=== PATIENT | female | born 1960 | race Caucasian/White ===

== ENCOUNTER 2016-10-15 12:17 | Outpatient (CLI) | payer MEDICARE, MEDICAID | END 2016-10-15 12:18 | disposition home or self-care (01) | DX: M47.816 Spondylosis without myelopathy or radiculopathy, lumbar region (principal); M51.36 Other intervertebral disc degeneration, lumbar region; K80.20 Calculus of gallbladder without cholecystitis without obstruction; M51.26 Other intervertebral disc displacement, lumbar region ==

== ENCOUNTER 2017-01-23 13:16 | Outpatient (CLI) | payer MEDICARE, MEDICAID | END 2017-01-23 13:17 | disposition critical access hospital (66) | DX: M54.2 Cervicalgia (principal); W07.XXXA Fall from chair, initial encounter; Y93.89 Activity, other specified; Y92.013 Bedroom of single-family (private) house as the place of occurrence of the external cause | CPT/HCPCS: A0425; A0429 ==

== ENCOUNTER 2017-01-23 13:46 | Emergency (ER) | payer MEDICARE, MEDICAID ==
[2017-01-23] MEDS ORDERED: KETOROLAC 60 MG/2 ML VIAL IM STA (14:16)
[2017-01-23] MEDS ORDERED: KETOROLAC 30 MG/ML VIAL ONE (14:24)
== END 2017-01-23 16:09 | disposition home or self-care (01) ==
DX: S19.9XXA Unspecified injury of neck, initial encounter (principal); W06.XXXA Fall from bed, initial encounter; W22.01XA Walked into wall, initial encounter; R59.0 Localized enlarged lymph nodes; M79.7 Fibromyalgia; I10 Essential (primary) hypertension; E78.00 Pure hypercholesterolemia, unspecified; E78.5 Hyperlipidemia, unspecified; F17.200 Nicotine dependence, unspecified, uncomplicated

== ENCOUNTER 2017-04-28 10:35 | Outpatient (CLI) | payer MEDICARE, MEDICAID ==
[2017-04-28 13:15] LABS: BASOPHILS # (AUTO) 0.1 10^3/uL (0.0-0.1); BASOPHILS % (AUTO) 0.9 %; EOSINOPHILS # (AUTO) 0.3 10^3/uL (0.0-0.7); EOSINOPHILS % (AUTO) 3.6 %; HCT - HEMATOCRIT 43.1 % (37.0-47.0); HGB - HEMOGLOBIN 14.5 g/dL (12.0-16.0); LYMPHOCYTES # (AUTO) 2.1 10^3/uL (1.5-3.5); LYMPHOCYTES % (AUTO) 24.3 %; MEAN CORPUSCULAR HEMOGLOBIN 30.4 pg (27.0-31.0); MEAN CORPUSCULAR HGB CONC 33.6 g/dL (32.0-36.0); MEAN CORPUSCULAR VOLUME 90.6 fL (81.0-99.0); MONOCYTES # (AUTO) 0.3 10^3/uL (0.0-1.0); MONOCYTES % (AUTO) 3.3 %; NEUTROPHILS # (AUTO) 5.7 10^3/uL (1.5-6.6); NEUTROPHILS % (AUTO) 67.9 %; NUCLEATED RED BLOOD CELLS AUTO 0.1 /100WBC; RED BLOOD COUNT 4.75 10^6/uL (4.20-5.40); RED CELL DISTRIBUTION WIDTH 12.8 % (12.0-15.0); UNCORRECTED WHITE BLOOD COUNT 8.4 x10^3/uL; WHITE BLOOD COUNT 8.4 x10^3/uL (4.8-10.8)
[2017-04-28 13:44] LABS: ALBUMIN/GLOBULIN RATIO 0.9 (1.0-2.2); BILIRUBIN,TOTAL 0.4 mg/dL (0.2-1.0); BUN - BLOOD UREA NITROGEN 8 mg/dL (6-20); CALCIUM 8.8 mg/dL (8.5-10.3); CARBON DIOXIDE - CO2 26 mmol/L (21-32); CHLORIDE 97 mmol/L (101-111); CHOL/HDL RATIO 4.7 (<4.4); CHOLESTEROL 177 mg/dL; CREATININE 0.8 mg/dL (0.4-1.0); GFR - MDRD 74 (>89); GLUCOSE 282 mg/dL (70-100); HDL CHOLESTEROL 38 mg/dL; LDL/HDL RATIO 2.9 (<4.4); POTASSIUM 3.8 mmol/L (3.5-5.0); SODIUM 133 mmol/L (135-145); TOTAL PROTEIN 7.7 g/dL (6.7-8.2); TRIGLYCERIDES 133 mg/dL; VLDL CHOLESTEROL 27 mg/dL
== END 2017-04-28 10:36 | disposition home or self-care (01) ==
LOC: LAB.N 10:35
PROVIDERS: ATTEND Physician Assistant
DX: E78.5 Hyperlipidemia, unspecified (principal); K22.70 Barrett's esophagus without dysplasia; K21.9 Gastro-esophageal reflux disease without esophagitis; Z13.9 Encounter for screening, unspecified
CPT/HCPCS: 36415; 80053; 80061; 84443; 85025; 85651

== ENCOUNTER 2017-08-18 10:30 | Outpatient (CLI) | payer MEDICARE, MEDICAID | END 2017-08-18 10:31 | disposition home or self-care (01) | LOC: LAB.N 10:30 | PROVIDERS: ATTEND Nurse Practitioner Gerontology | DX: N39.0 Urinary tract infection, site not specified (principal) | CPT/HCPCS: 87086 ==

== ENCOUNTER 2017-10-06 15:04 | Outpatient (CLI) | payer MEDICARE, MEDICAID ==
[2017-10-06 13:43] LABS: BASOPHILS # (AUTO) 0.1 10^3/uL (0.0-0.1); BASOPHILS % (AUTO) 0.9 %; EOSINOPHILS # (AUTO) 0.4 10^3/uL (0.0-0.7); EOSINOPHILS % (AUTO) 4.8 %; HGB - HEMOGLOBIN 14.7 g/dL (12.0-16.0); LYMPHOCYTES # (AUTO) 2.4 10^3/uL (1.5-3.5); LYMPHOCYTES % (AUTO) 29.7 %; MEAN CORPUSCULAR HEMOGLOBIN 30.6 pg (27.0-31.0); MEAN CORPUSCULAR HGB CONC 33.9 g/dL (32.0-36.0); MEAN CORPUSCULAR VOLUME 90.4 fL (81.0-99.0); MEAN PLATELET VOLUME 8.5 fL (7.9-10.8); MONOCYTES # (AUTO) 0.4 10^3/uL (0.0-1.0); MONOCYTES % (AUTO) 4.7 %; NEUTROPHILS # (AUTO) 4.7 10^3/uL (1.5-6.6); NEUTROPHILS % (AUTO) 59.9 %; PLT - PLATELET COUNT 230 10^3/uL (130-450); RED CELL DISTRIBUTION WIDTH 13.5 % (12.0-15.0); WHITE BLOOD COUNT 7.9 x10^3/uL (4.8-10.8)
[2017-10-06 14:22] LABS: ALBUMIN 4.1 g/dL (3.2-5.5); ALBUMIN/GLOBULIN RATIO 1.1 (1.0-2.2); BILIRUBIN,TOTAL 0.2 mg/dL (0.2-1.0); CALCIUM 9.3 mg/dL (8.5-10.3); CREATININE 0.7 mg/dL (0.4-1.0); TOTAL PROTEIN 7.9 g/dL (6.7-8.2)
[2017-10-06 16:18] LABS: HEMOGLOBIN A1C 0.6 g/dL; HEMOGLOBIN A1C % 5.6 % (4.6-6.2)
== END 2017-10-06 15:05 | disposition home or self-care (01) ==
LOC: LAB.WCP 15:04
PROVIDERS: ATTEND Family Medicine
DX: E11.9 Type 2 diabetes mellitus without complications (principal); R25.1 Tremor, unspecified; M54.9 Dorsalgia, unspecified; F31.81 Bipolar II disorder
CPT/HCPCS: 36415; 80053; 82043; 83036; 85025

== ENCOUNTER 2017-11-03 10:04 | Inpatient (IN) | payer MEDICARE, MEDICAID ==
--- NOTE | 2017-11-03 10:29 | ED Physician Documentation ---
PD HPI DYSPNEA - Stated complaint Stated Complaint: SOA/CHEST PX - Chief complaint Chief Complaint: Cardiac - History obtained from History obtained from: Patient, Caregiver - History of Present Illness Timing - onset: Last night Timing - onset during: Rest Timing - duration: Days (1) Timing - details: Gradual onset, Still present Inciting event(s): URI Improved by: O2, Rest, Sitting up Worsened by: Exertion, Coughing Associated symptoms: Fever, Cough, Chest pain / discomfort Similar symptoms before: Diagnosis (pneumonia) Recently seen: Clinic - Additional information Additional information: 57-year-old female with a history of emphysema and COPD is oxygen dependent at night and last night she developed a worsening in her cough worsening in her shortness of breath and hypoxia. She relates that her oxygen saturation was about 85% on oxygen last night she developed some chest pain associated with this and she did not come into the emergency department because she did not have someone to take care of her dogs. She was able eventually to get to sleep. She has had her caregiver bring her to the emergency department this morning with portable oxygen in route. She usually is in oxygen at night only. Review of Systems Constitutional: reports: Fever, Chills, Myalgias, Fatigue Eyes: denies: Decreased vision Ears: denies: Ear pain Nose: reports: Congestion Throat: denies: Sore throat Cardiac: reports: Chest pain / pressure. denies: Palpitations, Pedal edema, Calf pain Respiratory: reports: Dyspnea, Cough, Wheezing GI: denies: Abdominal Pain, Nausea, Vomiting : denies: Dysuria, Frequency PD PAST MEDICAL HISTORY - Past Medical History Cardiovascular: High cholesterol Respiratory: None, COPD, Sleep apnea Neuro: None Endocrine/Autoimmune: None GI: Hiatal hernia : Incontinence, Nocturia HEENT: Chronic vision loss, Other Psych: Anxiety, Bipolar disorder, Post traumatic stress disorder, Claustrophobia , Other Musculoskeletal: Osteoarthritis, Fibromyalgia, Chronic back pain Derm: Other - Past Surgical History Past Surgical History: Yes General: Other Ortho: Other /MANAGER ETHICS: section - Present Medications Home Medications: Ambulatory Orders Medication Instructions Recorded Confirmed Gabapentin [Neurontin] 1,200 mg PO TID 05/03/13 01/10/16 Omeprazole 20 mg PO BID 05/03/13 01/10/16 buPROPion [Wellbutrin Sr] 200 mg PO BID 05/03/13 01/10/16 clonazePAM [Clonazepam] 1 mg PO TID 05/03/13 01/10/16 Estrogens, Conjugated [Premarin] 0.625 mg PO DAILY 03/14/15 01/10/16 Furosemide 20 mg PO DAILY 03/14/15 01/10/16 Amitriptyline [Elavil] 75 mg PO QPM 01/10/16 01/10/16 Duloxetine HCl 120 mg PO DAILY 01/10/16 01/10/16 Ibuprofen 800 mg PO TID 01/10/16 01/10/16 Prazosin HCl [Minipress] 5 mg PO BID 01/10/16 01/10/16 lamoTRIgine [LaMICtal] 200 tab PO BID 01/10/16 01/10/16 Hydrocodone/Acetaminophen 1 - 2 each PO Q6H PRN #9 tablet 07/04/16 [Hydrocodon-Acetaminophen 5-325] Hydroxyzine Pamoate [Vistaril] 50 mg PO TID 01/23/17 01/23/17 Potassium Chloride 10 meq PO 01/23/17 Prazosin HCl 5 mg PO 01/23/17 Simvastatin [Zocor] 20 mg PO 01/23/17 01/23/17 - Allergies Allergies/Adverse Reactions: Allergies Allergy/AdvReac Type Severity Reaction Status Date / Time Sulfa (Sulfonamide Allergy oral Verified 01/23/17 13:53 Antibiotics) blisters - Social History Does the pt smoke?: Yes Smoking Status: Current every day smoker Does the pt drink ETOH?: No Does the pt have substance abuse?: Yes - Immunizations Immunizations are current?: Yes - POLST Patient has POLST: No PD ED PE NORMAL - Vitals Vital signs reviewed: Yes (normal ) - General General: Alert and oriented X 3, No acute distress, Well developed/nourished - HEENT HEENT: Atraumatic, PERRL, EOMI, Ears normal, Pharynx benign, Other (dry mucous membranes) - Neck Neck: Supple, no meningeal sign, No bony TTP - Cardiac Cardiac: RRR, No murmur - Respiratory Respiratory: No respiratory distress, Other (diminished breath sounds bilat) - Abdomen Abdomen: Soft, Non tender - Back Back: No CVA TTP, No spinal TTP - Derm Derm: Normal color, Warm and dry, No rash - Extremities Extremities: No deformity, No edema - Neuro Eye Opening: Spontaneous Motor: Obeys Commands Verbal: Oriented GCS Score: 15 - Psych Psych: Normal affect Results - Vitals Vitals: Vital Signs - 24 hr 11/03/17 11/03/17 10:10 12:14 Temperature 36.6 C Heart Rate 87 73 Respiratory 20 23 Rate Blood Pressure 124/72 103/70 O2 Saturation 93 98 Oxygen O2 Source [] Nasal cannula O2 Source Room air Oxygen Flow Rate 2 - EKG (time done) 1017 Rate: Rate (enter#) (84) Rhythm: NSR Intervals: Prolonged IN Ischemia: Non specific changes Compare to prior EKG: Unchanged from prior EKG (01-10-16) Computer interpretation: Agree with computer - Labs Labs: Laboratory Tests 11/03/17 11/03/17 11/03/17 10:57 10:57 10:57 WBC 10.1 RBC 4.10 L Hgb 12.5 Hct 36.5 L MCV 89.0 MCH 30.4 MCHC 34.2 RDW 13.0 Plt Count 234 MPV 7.8 L Neut # 7.0 H Lymph # 2.2 [place] # 0.5 Eos # 0.3 Baso # 0.1 Absolute Nucleated RBC 0.01 Nucleated RBC % 0.1 Sodium 136 Potassium 3.7 Chloride 98 L Carbon Dioxide 25 Anion Gap 13.0 BUN 7 Creatinine 0.6 Estimated GFR (MDRD) 103 Glucose 101 H Calcium 8.4 L Total Bilirubin 0.6 AST 23 ALT 17 Alkaline Phosphatase 84 Troponin I < 0.04 B-Natriuretic Peptide Total Protein 6.7 Albumin 3.2 Globulin 3.5 Albumin/Globulin Ratio 0.9 L Lipase 18 L Influenza A (Rapid) Influenza B (Rapid) Influenza Types A,B Ag 11/03/17 11/03/17 10:57 11:08 WBC RBC Hgb Hct MCV MCH MCHC RDW Plt Count MPV Neut # Lymph # [place] # Eos # Baso # Absolute Nucleated RBC Nucleated RBC % Sodium Potassium Chloride Carbon Dioxide Anion Gap BUN Creatinine Estimated GFR (MDRD) Glucose Calcium Total Bilirubin AST ALT Alkaline Phosphatase Troponin I B-Natriuretic Peptide 51 Total Protein Albumin Globulin Albumin/Globulin Ratio Lipase Influenza A (Rapid) Negative Influenza B (Rapid) Negative Influenza Types A,B Ag - - Rads (name of study) 2 view chest Radiology: Prelim report reviewed (Impression: Suspect early bilateral infiltrates.), EMP read indepedently, See rad report Procedures - IVC sono (time) 1035 Bedside IVC sono: IVC measures (cm) (1.18), IVC collapsed c insp (cm) (0.54), Dehydration (mild) PD MEDICAL DECISION MAKING - ED course Complexity details: reviewed old records, reviewed results, re-evaluated patient , considered differential, d/w patient, d/w family ED course: 57-year-old female with advanced lung disease who is on oxygen at night at home has developed a sudden weakness and hypoxia with worsening cough. She was weak enough today that she was not talking normally and her caregivers brought her to the emergency department. On evaluation she is found to be mildly dehydrated and she does appear to have bilateral infiltrates on her chest x- ray. 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 She does want to go home today and this is ill advised that she has no one that will be with her tonight or tomorrow and when she arrived here she was too weak to sit up. Here in the emergency department she has been treated with a liter of saline and 10 mg of dexamethasone and feels improved. Departure - Departure Disposition: [facility] DC/Xfer Clinical Impression: Pneumonia Qualifiers: Pneumonia type: due to unspecified organism Laterality: bilateral Lung location : lower lobe of lung Qualified Code(s): J18.9 - Pneumonia, unspecified organism COPD (chronic obstructive pulmonary disease) Qualifiers: COPD type: COPD with acute lower respiratory infection Qualified Code(s): J44.0 - Chronic obstructive pulmonary disease with acute lower respiratory infection Condition: Fair
[2017-11-03] MEDS ORDERED: DEXAMETHASONE 10 MG/ML VIAL IVP STA (10:42)
[2017-11-03] MEDS ORDERED: SODIUM CHLORIDE 0.9% 1,000 ML IV ONE (10:42)
[2017-11-03] MEDS ORDERED: CHERRY SYRUP 10 ML UDC PO ONE (11:00)
--- NOTE | 2017-11-03 11:11 | XRAY Report ---
EXAM: CHEST RADIOGRAPHY EXAM DATE: 11/03/2017 11:01 AM. CLINICAL HISTORY: Diminished breath sounds. Short of breath COMPARISON: 01/13/2016 and 11/09/2011. TECHNIQUE: 2 views. FINDINGS: Lungs/Pleura: Linear left mid lung atelectasis/scarring slightly increased compared with priors. Susp ect right upper lobe infiltrate and left perihilar infiltrate. No pleural effusion. No pneumothorax. Normal volumes. Mediastinum: Borderline heart size. Other: Mild degenerative change in the spine IMPRESSION: Suspect early bilateral infiltrates. [facility] Referring Provider Line: [phone] SITE ID: [id number]
[2017-11-03 11:19] LABS: BASOPHILS # (AUTO) 0.1 10^3/uL (0.0-0.1); BASOPHILS % (AUTO) 1.2 %; EOSINOPHILS # (AUTO) 0.3 10^3/uL (0.0-0.7); EOSINOPHILS % (AUTO) 3.3 %; HGB - HEMOGLOBIN 12.5 g/dL (12.0-16.0); LYMPHOCYTES # (AUTO) 2.2 10^3/uL (1.5-3.5); LYMPHOCYTES % (AUTO) 21.8 %; MEAN CORPUSCULAR HEMOGLOBIN 30.4 pg (27.0-31.0); MEAN CORPUSCULAR HGB CONC 34.2 g/dL (32.0-36.0); MEAN PLATELET VOLUME 7.8 fL (7.9-10.8); MONOCYTES # (AUTO) 0.5 10^3/uL (0.0-1.0); MONOCYTES % (AUTO) 4.7 %; PLT - PLATELET COUNT 234 10^3/uL (130-450); WHITE BLOOD COUNT 10.1 x10^3/uL (4.8-10.8)
[2017-11-03 11:31] LABS: ALBUMIN 3.2 g/dL (3.2-5.5); ALBUMIN/GLOBULIN RATIO 0.9 (1.0-2.2); BILIRUBIN,TOTAL 0.6 mg/dL (0.2-1.0); CALCIUM 8.4 mg/dL (8.5-10.3); CREATININE 0.6 mg/dL (0.4-1.0); TOTAL PROTEIN 6.7 g/dL (6.7-8.2)
[2017-11-03] MEDS: LORazepam 2 MG/ML VIAL IVP PRN ×3 (14:48→20:06)
[2017-11-03] MEDS ORDERED: FLUTICASONE NASAL SPRAY NAS PRN (15:47)
[2017-11-03 15:49] LABS: MUDS CUTOFF CONCENTRATIONS CUTOFF CONC BELOW:
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
[2017-11-03 16:04] LABS: AMPHETAMINE SCREEN,URINE NEGATIVE (NEGATIVE); BENZODIAZEPINES SCREEN, URINE NEGATIVE (NEGATIVE); COCAINE SCREEN URINE NEGATIVE (NEGATIVE); METHADONE SCREEN, URINE NEGATIVE (NEGATIVE); METHAMPHETAMINES SCREEN, URINE NEGATIVE (NEGATIVE); OPIATE SCREEN, URINE NEGATIVE (NEGATIVE); OXYCODONE SCREEN, URINE NEGATIVE (NEGATIVE); PROPOXYPHENE SCREEN, URINE NEGATIVE (NEGATIVE); TRICYCLIC ANTIDEPRESSANT,URINE POSITIVE (NEGATIVE)
[2017-11-03] MEDS: SODIUM CHLORIDE 0.9% 1,000 ML IV SCH (16:44)
[2017-11-03] MEDS: SODIUM CHLORIDE FLUSH 0.9% 10 ML SYRINGE IVP SCH ×2 (16:45→19:48)
[2017-11-03] MEDS: IBUPROFEN 800 MG TABLET PO PRN (18:15)
[2017-11-03] MEDS: NICOTINE 21 MG PATCH TOP SCH (18:19)
[2017-11-03] MEDS: buPROPion SR 100 MG TABLET PO SCH (20:05)
[2017-11-03] MEDS: QUEtiapine 25 MG TABLET PO SCH (20:06)
[2017-11-03] MEDS: AMITRIPTYLINE 25 MG TABLET PO SCH (20:06)
[2017-11-04] MEDS: SODIUM CHLORIDE 0.9% 1,000 ML IV SCH ×2 (00:23→13:04)
[2017-11-04] MEDS: PIPERACILLIN/TAZOBACTAM 3.375 GM in SODIUM CHLORIDE 0.9% MINIBAG 100 ML IV SCH ×5 (00:23→22:35)
[2017-11-04] MEDS: guaiFENesin 600 MG TABLET PO SCH ×3 (00:24→21:22)
[2017-11-04] MEDS: methylPREDNISolone SUCCINATE 40 MG/ML VIAL IVP SCH ×3 (00:25→14:23)
[2017-11-04] MEDS: LORazepam 2 MG/ML VIAL IVP PRN ×3 (00:25→21:24)
[2017-11-04] MEDS: INSULIN GLARGINE 300 UNIT/3 ML PEN SUBQ SCH ×2 (00:32→21:26)
[2017-11-04] MEDS: GABAPENTIN 400 MG CAPSULE PO SCH ×4 (01:19→22:35)
[2017-11-04 05:51] LABS: BASOPHILS # (AUTO) 0.1 10^3/uL (0.0-0.1); BASOPHILS % (AUTO) 0.9 %; EOSINOPHILS % (AUTO) 0.1 %; LYMPHOCYTES # (AUTO) 1.1 10^3/uL (1.5-3.5); LYMPHOCYTES % (AUTO) 10.2 %; MEAN CORPUSCULAR HEMOGLOBIN 30.2 pg (27.0-31.0); MEAN CORPUSCULAR HGB CONC 33.5 g/dL (32.0-36.0); MEAN CORPUSCULAR VOLUME 90.1 fL (81.0-99.0); MONOCYTES # (AUTO) 0.2 10^3/uL (0.0-1.0); MONOCYTES % (AUTO) 1.6 %; NEUTROPHILS # (AUTO) 9.8 10^3/uL (1.5-6.6); NEUTROPHILS % (AUTO) 87.2 %; PLT - PLATELET COUNT 241 10^3/uL (130-450); RED BLOOD COUNT 3.96 10^6/uL (4.20-5.40); RED CELL DISTRIBUTION WIDTH 12.6 % (12.0-15.0); WHITE BLOOD COUNT 11.2 x10^3/uL (4.8-10.8)
[2017-11-04 06:04] LABS: ALBUMIN 2.9 g/dL (3.2-5.5); ALBUMIN/GLOBULIN RATIO 0.9 (1.0-2.2); BILIRUBIN,TOTAL 0.2 mg/dL (0.2-1.0); CALCIUM 8.3 mg/dL (8.5-10.3); CREATININE 0.5 mg/dL (0.4-1.0); MAGNESIUM 2.1 mg/dL (1.7-2.8); TOTAL PROTEIN 6.3 g/dL (6.7-8.2)
[2017-11-04 06:25] LABS: HB2 TOTAL 12.8 g/dL; HEMOGLOBIN A1C 0.5 g/dL; HEMOGLOBIN A1C % 5.7 % (4.6-6.2)
[2017-11-04] MEDS: SODIUM CHLORIDE FLUSH 0.9% 10 ML SYRINGE IVP SCH ×5 (07:34→22:37)
[2017-11-04 07:41] LABS: BILIRUBIN,URINE NEGATIVE (NEGATIVE); GLUCOSE, URINE (UA) NEGATIVE (NEGATIVE); KETONES,URINE (UA) NEGATIVE (NEGATIVE); LEUKOCYTE ESTERASE, URINE NEGATIVE (NEGATIVE); NITRITE,URINE NEGATIVE (NEGATIVE); OCCULT BLOOD,URINE NEGATIVE (NEGATIVE); PH,URINE 6.5 PH (5.0-7.5); PROTEIN,URINE NEGATIVE (NEGATIVE); UROBILINOGEN,URINE 0.2 (NORMAL) E.U./dL (NORMAL)
[2017-11-04 07:50] LABS: CLARITY,URINE CLEAR (CLEAR)
[2017-11-04] MEDS: INSULIN ASPART 300 UNIT/3 ML PEN SUBQ SCH ×4 (08:48→21:24)
[2017-11-04] MEDS: POLYETHYLENE GLYCOL 3350 17 GM PACKET PO SCH (08:48)
[2017-11-04] MEDS: ARIPiprazole 5 MG TABLET PO SCH (08:49)
[2017-11-04] MEDS: ESTROGENS, CONJUGATED 0.625 MG TABLET PO SCH (08:49)
[2017-11-04] MEDS: lamoTRIgine 100 MG TABLET PO SCH (08:49)
[2017-11-04] MEDS: ENOXAPARIN 40 MG/0.4 ML SYRINGE SUBQ SCH (08:49)
[2017-11-04] MEDS: NICOTINE 21 MG PATCH TOP SCH (08:49)
[2017-11-04] MEDS: ASPIRIN CHEW 81 MG TABLET PO SCH (08:50)
[2017-11-04] MEDS: buPROPion SR 100 MG TABLET PO SCH ×2 (08:50→21:23)
[2017-11-04] MEDS: LISINOPRIL 5 MG TABLET PO SCH (08:50)
[2017-11-04] MEDS: LEVALBUTEROL 1.25 MG/3 ML NEB INH PRN ×2 (10:34→16:19)
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
[2017-11-04] MEDS: DULoxetine 30 MG CAPSULE PO SCH (14:22)
[2017-11-04] MEDS: FUROSEMIDE 40 MG/4 ML VIAL IVP SCH (14:23)
[2017-11-04] MEDS: IBUPROFEN 800 MG TABLET PO PRN (17:25)
[2017-11-04] MEDS: SODIUM CHLORIDE FLUSH 0.9% 10 ML SYRINGE IVP PRN ×2 (17:26→18:48)
[2017-11-04] MEDS ORDERED: INSULIN GLARGINE 300 UNIT/3 ML PEN SUBQ SCH (21:00)
[2017-11-04] MEDS: AMITRIPTYLINE 25 MG TABLET PO SCH (21:23)
[2017-11-04] MEDS: QUEtiapine 25 MG TABLET PO SCH (21:23)
[2017-11-05] MEDS: PIPERACILLIN/TAZOBACTAM 3.375 GM in SODIUM CHLORIDE 0.9% MINIBAG 100 ML IV SCH ×4 (05:46→23:01)
[2017-11-05] MEDS: GABAPENTIN 400 MG CAPSULE PO SCH ×3 (05:47→23:01)
[2017-11-05] MEDS: SODIUM CHLORIDE FLUSH 0.9% 10 ML SYRINGE IVP PRN ×4 (05:47→23:54)
[2017-11-05] MEDS: LORazepam 2 MG/ML VIAL IVP PRN ×2 (05:47→17:18)
[2017-11-05 05:53] LABS: BASOPHILS # (AUTO) 0.2 10^3/uL (0.0-0.1); BASOPHILS % (AUTO) 1.5 %; EOSINOPHILS # (AUTO) 0.1 10^3/uL (0.0-0.7); HGB - HEMOGLOBIN 11.5 g/dL (12.0-16.0); LYMPHOCYTES # (AUTO) 3.1 10^3/uL (1.5-3.5); LYMPHOCYTES % (AUTO) 27.6 %; MEAN CORPUSCULAR HEMOGLOBIN 30.1 pg (27.0-31.0); MEAN CORPUSCULAR HGB CONC 33.6 g/dL (32.0-36.0); MEAN CORPUSCULAR VOLUME 89.6 fL (81.0-99.0); MEAN PLATELET VOLUME 7.2 fL (7.9-10.8); MONOCYTES # (AUTO) 0.6 10^3/uL (0.0-1.0); MONOCYTES % (AUTO) 5.3 %; NEUTROPHILS # (AUTO) 7.2 10^3/uL (1.5-6.6); NEUTROPHILS % (AUTO) 64.6 %; PLT - PLATELET COUNT 264 10^3/uL (130-450); RED BLOOD COUNT 3.83 10^6/uL (4.20-5.40); RED CELL DISTRIBUTION WIDTH 13.2 % (12.0-15.0); WHITE BLOOD COUNT 11.2 x10^3/uL (4.8-10.8)
[2017-11-05 06:05] LABS: ALBUMIN 2.8 g/dL (3.2-5.5); ALBUMIN/GLOBULIN RATIO 0.8 (1.0-2.2); BILIRUBIN,TOTAL 0.4 mg/dL (0.2-1.0); CALCIUM 8.3 mg/dL (8.5-10.3); CREATININE 0.5 mg/dL (0.4-1.0); TOTAL PROTEIN 6.3 g/dL (6.7-8.2)
[2017-11-05] MEDS: LEVALBUTEROL 1.25 MG/3 ML NEB INH PRN ×3 (07:38→19:50)
[2017-11-05] MEDS: INSULIN ASPART 300 UNIT/3 ML PEN SUBQ SCH ×4 (07:50→20:45)
[2017-11-05] MEDS: POLYETHYLENE GLYCOL 3350 17 GM PACKET PO SCH (08:03)
[2017-11-05] MEDS: methylPREDNISolone SUCCINATE 40 MG/ML VIAL IVP SCH (08:03)
[2017-11-05] MEDS: FUROSEMIDE 40 MG/4 ML VIAL IVP SCH (08:03)
[2017-11-05] MEDS: buPROPion SR 100 MG TABLET PO SCH ×2 (08:04→20:41)
[2017-11-05] MEDS: ENOXAPARIN 40 MG/0.4 ML SYRINGE SUBQ SCH (08:04)
[2017-11-05] MEDS: lamoTRIgine 100 MG TABLET PO SCH (08:05)
[2017-11-05] MEDS: DULoxetine 30 MG CAPSULE PO SCH (08:05)
[2017-11-05] MEDS: NICOTINE 21 MG PATCH TOP SCH (08:05)
[2017-11-05] MEDS: LISINOPRIL 5 MG TABLET PO SCH (08:06)
[2017-11-05] MEDS: ESTROGENS, CONJUGATED 0.625 MG TABLET PO SCH (08:06)
[2017-11-05] MEDS: ARIPiprazole 5 MG TABLET PO SCH (08:06)
[2017-11-05] MEDS: ASPIRIN CHEW 81 MG TABLET PO SCH (08:06)
[2017-11-05] MEDS: guaiFENesin 600 MG TABLET PO SCH ×2 (08:07→20:41)
[2017-11-05] MEDS ORDERED: POTASSIUM CHLORIDE 20 MEQ TABLET PO ONE (09:24)
[2017-11-05] MEDS ORDERED: SODIUM CHLORIDE FLUSH 0.9% 10 ML SYRINGE ONE (11:34)
[2017-11-05] MEDS ORDERED: MAGNESIUM HYDROXIDE 2,400 MG/30 ML UDC PO PRN (15:02)
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
[2017-11-05] MEDS: SENNA 8.6 MG TABLET PO SCH ×2 (15:55→20:41)
[2017-11-05] MEDS: SODIUM CHLORIDE FLUSH 0.9% 10 ML SYRINGE IVP SCH ×3 (15:56→23:38)
[2017-11-05] MEDS: AMITRIPTYLINE 25 MG TABLET PO SCH (20:40)
[2017-11-05] MEDS: QUEtiapine 25 MG TABLET PO SCH (20:41)
[2017-11-05] MEDS: INSULIN GLARGINE 300 UNIT/3 ML PEN SUBQ SCH (20:44)
[2017-11-06] MEDS: PIPERACILLIN/TAZOBACTAM 3.375 GM in SODIUM CHLORIDE 0.9% MINIBAG 100 ML IV SCH ×2 (05:26→11:17)
[2017-11-06] MEDS: GABAPENTIN 400 MG CAPSULE PO SCH (05:26)
[2017-11-06] MEDS: SODIUM CHLORIDE FLUSH 0.9% 10 ML SYRINGE IVP SCH (05:27)
[2017-11-06 06:38] LABS: BASOPHILS # (AUTO) 0.1 10^3/uL (0.0-0.1); BASOPHILS % (AUTO) 0.5 %; EOSINOPHILS # (AUTO) 0.3 10^3/uL (0.0-0.7); EOSINOPHILS % (AUTO) 2.7 %; HGB - HEMOGLOBIN 12.7 g/dL (12.0-16.0); LYMPHOCYTES # (AUTO) 3.3 10^3/uL (1.5-3.5); LYMPHOCYTES % (AUTO) 31.9 %; MEAN CORPUSCULAR HEMOGLOBIN 29.9 pg (27.0-31.0); MEAN CORPUSCULAR HGB CONC 33.3 g/dL (32.0-36.0); MEAN CORPUSCULAR VOLUME 89.9 fL (81.0-99.0); MEAN PLATELET VOLUME 7.4 fL (7.9-10.8); MONOCYTES # (AUTO) 0.7 10^3/uL (0.0-1.0); MONOCYTES % (AUTO) 7.2 %; NEUTROPHILS # (AUTO) 5.9 10^3/uL (1.5-6.6); NEUTROPHILS % (AUTO) 57.7 %; PLT - PLATELET COUNT 296 10^3/uL (130-450); RED BLOOD COUNT 4.23 10^6/uL (4.20-5.40); RED CELL DISTRIBUTION WIDTH 13.2 % (12.0-15.0); WHITE BLOOD COUNT 10.3 x10^3/uL (4.8-10.8)
[2017-11-06 06:51] LABS: ALBUMIN/GLOBULIN RATIO 0.8 (1.0-2.2); BILIRUBIN,TOTAL 0.5 mg/dL (0.2-1.0); CALCIUM 8.5 mg/dL (8.5-10.3); CREATININE 0.6 mg/dL (0.4-1.0); TOTAL PROTEIN 6.8 g/dL (6.7-8.2)
[2017-11-06 08:04] VITALS: BP 131/78
--- NOTE | 2017-11-06 08:41 | Discharge Plan ---
Discharge Plan Disposition: Home, Self Care Condition: Good Prescriptions: Albuterol Sulfate [Proventil Hfa Inhaler] 1 - 2 puffs INH Q4H PRN #1 inhaler PRN Reason: Shortness Of Air/Wheezing Fluticasone/Salmeterol [Advair Hfa 230-21 Mcg Inhaler] 8 gm IH BID #1 hfa.aer.ad guaiFENesin [Mucinex] 600 mg PO BID #30 tablet Levofloxacin [Levaquin] 750 mg PO DAILY 7 Days #7 tablet Nicotine 21 mg Patch [Nicoderm] 1 patch TOP DAILY #14 patch predniSONE [Prednisone] 10 mg PO DAILY 6 Days #18 tab.ds.pk Saccharomyces Boulardii [Florastor] 250 mg PO BID 14 Days #28 capsule Diet: Diabetic Activity Restrictions: No Restrictions Shower Restrictions: No Driving Restrictions: No Weight Bearing: Full Weight Additional Instructions or Follow Up instructions: You were admitted for treatment of bilateral pneumonia. You were given IV antibiotics and small doses of IV steroids. I have sent appropriate inhalers to the pharmacy to treat COPD/emphysema to keep your disease in good order. Please see your PCP within one week of this stay. Take all of your regular medications as prescribed, including your antibiotics and steroid taper to clear up your pneumonia. The best way to prevent pneumonia is to reduce irritants that you may breath in such as dust, smoke, etc. Continue oxygen use. A walking oxygen test will be completed before you leave today to see if you need oxygen more than your usual use. No Smoking: If you smoke, Please STOP! Call for help. Follow-up with: Jerry Beaulieu MD [Primary Care Provider] -
[2017-11-06] MEDS: LORazepam 2 MG/ML VIAL IVP PRN (08:50)
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
[2017-11-06] MEDS: SODIUM CHLORIDE FLUSH 0.9% 10 ML SYRINGE IVP PRN (08:55)
[2017-11-06] MEDS: INSULIN ASPART 300 UNIT/3 ML PEN SUBQ SCH ×2 (09:25→11:56)
[2017-11-06] MEDS: ESTROGENS, CONJUGATED 0.625 MG TABLET PO SCH (09:26)
[2017-11-06] MEDS: DULoxetine 30 MG CAPSULE PO SCH (09:27)
[2017-11-06] MEDS: ARIPiprazole 5 MG TABLET PO SCH (09:28)
[2017-11-06] MEDS: LISINOPRIL 5 MG TABLET PO SCH (09:28)
[2017-11-06] MEDS: buPROPion SR 100 MG TABLET PO SCH (09:28)
[2017-11-06] MEDS: guaiFENesin 600 MG TABLET PO SCH (09:29)
[2017-11-06] MEDS: FUROSEMIDE 40 MG/4 ML VIAL IVP SCH (09:29)
[2017-11-06] MEDS: NICOTINE 21 MG PATCH TOP SCH (09:29)
[2017-11-06] MEDS: lamoTRIgine 100 MG TABLET PO SCH (09:29)
[2017-11-06] MEDS: methylPREDNISolone SUCCINATE 40 MG/ML VIAL IVP SCH (09:29)
[2017-11-06] MEDS: ASPIRIN CHEW 81 MG TABLET PO SCH (09:29)
[2017-11-06] MEDS: SENNA 8.6 MG TABLET PO SCH (09:29)
[2017-11-06] MEDS: ENOXAPARIN 40 MG/0.4 ML SYRINGE SUBQ SCH (09:30)
[2017-11-06] MEDS: POLYETHYLENE GLYCOL 3350 17 GM PACKET PO SCH (09:30)
== END 2017-11-06 14:00 | disposition home or self-care (01) | DRG 195 ==
LOC: ED 10:04 → MS2 13:26
PROVIDERS: ADMIT Nurse Practitioner; ATTEND Nurse Practitioner
DX: J18.9 Pneumonia, unspecified organism (principal); J43.9 Emphysema, unspecified; E86.0 Dehydration; R09.02 Hypoxemia; E66.9 Obesity, unspecified; F17.200 Nicotine dependence, unspecified, uncomplicated; F40.00 Agoraphobia, unspecified; F31.9 Bipolar disorder, unspecified; F43.10 Post-traumatic stress disorder, unspecified; F40.240 Claustrophobia; F12.280 Cannabis dependence with cannabis-induced anxiety disorder; F17.218 Nicotine dependence, cigarettes, with other nicotine-induced disorders; G47.30 Sleep apnea, unspecified; G89.29 Other chronic pain; E11.9 Type 2 diabetes mellitus without complications; M79.7 Fibromyalgia; E78.5 Hyperlipidemia, unspecified; K59.09 Other constipation; K21.9 Gastro-esophageal reflux disease without esophagitis; Z66 Do not resuscitate; Z62.810 Personal history of physical and sexual abuse in childhood; Z99.81 Dependence on supplemental oxygen; Z68.32 Body mass index [BMI] 32.0-32.9, adult; Z91.81 History of falling; Z91.5 Personal history of self-harm; Z91.410 Personal history of adult physical and sexual abuse; Z79.82 Long term (current) use of aspirin; Z79.84 Long term (current) use of oral hypoglycemic drugs
CPT/HCPCS: 36415; 71046; 80053; 80306; 81001; 81003; 83036; 83690; 83735; 83880; 84443; 84484; 85025; 87086; 87275; 87276; 93005; 93306; 94640; 96361; 96374; 99284

== ENCOUNTER 2018-02-02 08:00 | Outpatient (CLI) | payer MEDICARE, MEDICAID | END 2018-02-02 08:01 | disposition home or self-care (01) | LOC: LAB.WCP 08:00 | PROVIDERS: ATTEND Family Medicine | DX: N39.0 Urinary tract infection, site not specified (principal) | CPT/HCPCS: 87086 ==

== ENCOUNTER 2018-02-10 08:00 | Outpatient (CLI) | payer MEDICARE, MEDICAID ==
[2018-02-10 19:33] LABS: ALBUMIN 3.7 g/dL (3.2-5.5); ALBUMIN/GLOBULIN RATIO 1.1 (1.0-2.2); BILIRUBIN,TOTAL 0.4 mg/dL (0.2-1.0); CALCIUM 8.8 mg/dL (8.5-10.3); CREATININE 0.6 mg/dL (0.4-1.0); TOTAL PROTEIN 7.1 g/dL (6.7-8.2)
[2018-02-10 20:24] LABS: HB2 TOTAL 13.8 g/dL; HEMOGLOBIN A1C 0.57 g/dL; HEMOGLOBIN A1C % 5.9 % (4.6-6.2)
== END 2018-02-10 08:01 | disposition home or self-care (01) ==
LOC: LAB.WCP 08:00
PROVIDERS: ATTEND Family Medicine
DX: E11.9 Type 2 diabetes mellitus without complications (principal)
CPT/HCPCS: 36415; 80053; 83036

== ENCOUNTER 2018-02-28 22:14 | Outpatient (CLI) | payer MEDICARE, MEDICAID | END 2018-02-28 22:15 | disposition critical access hospital (66) | LOC: EMS 22:14 | PROVIDERS: ATTEND Surgery | DX: K92.1 Melena (principal) | CPT/HCPCS: A0425; A0427 ==

== ENCOUNTER 2018-02-28 22:40 | Emergency (ER) | payer MEDICARE, MEDICAID ==
[2018-02-28 23:02] LABS: BASOPHILS # (AUTO) 0.1 10^3/uL (0.0-0.1); BASOPHILS % (AUTO) 0.7 %; EOSINOPHILS # (AUTO) 0.4 10^3/uL (0.0-0.7); EOSINOPHILS % (AUTO) 2.6 %; HGB - HEMOGLOBIN 12.3 g/dL (12.0-16.0); LYMPHOCYTES # (AUTO) 2.3 10^3/uL (1.5-3.5); LYMPHOCYTES % (AUTO) 14.1 %; MEAN CORPUSCULAR HEMOGLOBIN 27.8 pg (27.0-31.0); MEAN CORPUSCULAR HGB CONC 32.5 g/dL (32.0-36.0); MEAN CORPUSCULAR VOLUME 85.5 fL (81.0-99.0); MEAN PLATELET VOLUME 7.4 fL (7.9-10.8); MONOCYTES # (AUTO) 0.7 10^3/uL (0.0-1.0); MONOCYTES % (AUTO) 4.3 %; NEUTROPHILS # (AUTO) 12.9 10^3/uL (1.5-6.6); NEUTROPHILS % (AUTO) 78.3 %; PLT - PLATELET COUNT 290 10^3/uL (130-450); RED BLOOD COUNT 4.41 10^6/uL (4.20-5.40); RED CELL DISTRIBUTION WIDTH 13.2 % (12.0-15.0); WHITE BLOOD COUNT 16.5 x10^3/uL (4.8-10.8)
[2018-02-28 23:16] LABS: ALBUMIN 3.4 g/dL (3.2-5.5); ALBUMIN/GLOBULIN RATIO 0.9 (1.0-2.2); BILIRUBIN,TOTAL 0.5 mg/dL (0.2-1.0); CALCIUM 8.4 mg/dL (8.5-10.3); CREATININE 0.6 mg/dL (0.4-1.0); TOTAL PROTEIN 7.1 g/dL (6.7-8.2)
--- NOTE | 2018-03-01 00:10 | ED Physician Documentation ---
PD HPI GI BLEED - Stated complaint Stated Complaint: LOWER GI BLEED - Chief complaint Chief Complaint: Abd Pain - History obtained from History obtained from: Patient - History of Present Illness Timing - onset: Yesterday Timing - details: Gradual onset Pain level now: 5 Associated symptoms: BRBPR, Constipation Improved by: Other (no ameliorating factors) Worsened by: Palpation Similar symptoms before: Has not had sx before Recently seen: Not recently seen - Additional information Additional information: feels constipated x 2-3 days, took laxative today, tonight had abdominal cramping associated with blood in stool. Review of Systems Constitutional: reports: Reviewed and negative Cardiac: reports: Reviewed and negative Respiratory: reports: Reviewed and negative GI: reports: Abdominal Pain, Constipation, Bloody / black stool. 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 : Incontinence, Nocturia HEENT: Chronic vision loss, Other Psych: Anxiety, Bipolar disorder, Post traumatic stress disorder, Claustrophobia , Other Musculoskeletal: Osteoarthritis, Fibromyalgia, Chronic back pain Derm: None - Past Surgical History Past Surgical History: Yes General: Gastric surgery Ortho: Other /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 OPERATOR: section, Hysterectomy, Oophrectomy - Present Medications Home Medications: Ambulatory Orders Medication Instructions Recorded Confirmed Gabapentin [Neurontin] 1,200 mg PO TID 05/03/13 11/03/17 Omeprazole 20 mg PO BID 05/03/13 11/03/17 buPROPion [Wellbutrin Sr] 200 mg PO BID 05/03/13 11/03/17 clonazePAM [Clonazepam] 1 mg PO TID PRN 05/03/13 11/03/17 Estrogens, Conjugated [Premarin] 0.625 mg PO DAILY 03/14/15 11/03/17 Furosemide 20 mg PO DAILY 03/14/15 11/03/17 Amitriptyline [Elavil] 100 mg PO QPM 01/10/16 11/03/17 Duloxetine HCl 120 mg PO DAILY 01/10/16 11/03/17 Ibuprofen 800 mg PO TID PRN 01/10/16 11/03/17 Prazosin HCl [Minipress] 10 mg PO QPM 01/10/16 11/03/17 lamoTRIgine [LaMICtal] 200 mg PO DAILY 01/10/16 11/04/17 Hydroxyzine Pamoate [Vistaril] 50 mg PO TID PRN 01/23/17 11/03/17 Potassium Chloride 10 meq PO DAILY 01/23/17 11/03/17 Simvastatin [Zocor] 20 mg PO QPM 01/23/17 11/03/17 ARIPiprazole [Abilify] 5 mg PO DAILY 11/03/17 11/03/17 Aspirin 81 mg PO DAILY 11/03/17 11/03/17 Fluticasone [Flonase] 2 sprays MARKO DAILY PRN 11/03/17 11/03/17 Lisinopril 2.5 mg PO DAILY 11/03/17 11/03/17 Metformin HCl 500 mg PO BIDWM 11/03/17 11/03/17 Quetiapine Fumarate 50 mg PO QPM 11/03/17 11/03/17 Albuterol Sulfate [Proventil Hfa 1 - 2 puffs INH Q4H PRN #1 inhaler 11/06/17 Inhaler] Fluticasone/Salmeterol [Advair Hfa 8 gm IH BID #1 hfa.aer.ad 11/06/17 230-21 Mcg Inhaler] Levofloxacin [Levaquin] 750 mg PO DAILY 7 Days #7 tablet 11/06/17 Nicotine 21 mg Patch [Nicoderm] 1 patch TOP DAILY #14 patch 11/06/17 Saccharomyces Boulardii [Florastor] 250 mg PO BID 14 Days #28 capsule 11/06/17 guaiFENesin [Mucinex] 600 mg PO BID #30 tablet 11/06/17 predniSONE [Prednisone] 10 mg PO DAILY 6 Days #18 tab.ds.pk 11/06/17 Metronidazole [Flagyl] 500 mg PO Q8HR #20 tablet 03/01/18 oxyCODONE/ACET 5/325 [Percocet 5 1 - 2 each PO Q6H PRN #14 tablet 03/01/18 mg/325 mg] - Allergies Allergies/Adverse Reactions: Allergies Allergy/AdvReac Type Severity Reaction Status Date / Time Sulfa (Sulfonamide Allergy oral Verified 02/28/18 22:45 Antibiotics) blisters - Social History Does the pt smoke?: Yes Smoking Status: Current every day smoker Does the pt drink ETOH?: No Does the pt have substance abuse?: Yes - Immunizations Immunizations are current?: Yes - POLST Patient has POLST: No POLST Status: Full Code PD ED PE NORMAL - Vitals Vital signs reviewed: Yes - General General: Alert and oriented X 3, No acute distress, Well developed/nourished - HEENT HEENT: Moist mucous membranes - Cardiac Cardiac: RRR, No murmur - Respiratory Respiratory: No respiratory distress, Clear bilaterally - Abdomen Abdomen: Normal bowel sounds, Soft, Non distended - Derm Derm: No rash - Extremities Extremities: No edema PD ED PE EXPANDED - Abdomen Abdomen: Tender to palpation, Periumbilical, LLQ. No: Rebound, Guarding Results - Vitals Vitals: Oxygen O2 Source [With Activity] Nasal cannula O2 Source Room air - Labs Labs: Laboratory Tests 02/28/18 02/28/18 22:50 22:50 WBC 16.5 H RBC 4.41 Hgb 12.3 Hct 37.7 MCV 85.5 MCH 27.8 MCHC 32.5 RDW 13.2 Plt Count 290 MPV 7.4 L Neut # 12.9 H Lymph # 2.3 [place] # 0.7 Eos # 0.4 Baso # 0.1 Absolute Nucleated RBC 0.00 Nucleated RBC % 0.0 Sodium 130 L Potassium 3.8 Chloride 94 L Carbon Dioxide 26 Anion Gap 10.0 BUN 9 Creatinine 0.6 Estimated GFR (MDRD) 103 Glucose 122 H Calcium 8.4 L Total Bilirubin 0.5 AST 37 ALT 26 Alkaline Phosphatase 129 H Total Protein 7.1 Albumin 3.4 Globulin 3.7 Albumin/Globulin Ratio 0.9 L Lipase 25 - Rads (name of study) CT A/P Radiology: Prelim report reviewed, See rad report PD MEDICAL DECISION MAKING - ED course Complexity details: reviewed results, re-evaluated patient, considered differential, d/w patient Departure - Departure Disposition: 01 Home, Self Care Clinical Impression: Colitis Condition: Good Instructions: ED Gastroenteritis Bacterial Follow-Up: Jerry Beaulieu MD [Primary Care Provider] - (3-5 days) Prescriptions: Metronidazole [Flagyl] 500 mg PO Q8HR #20 tablet oxyCODONE/ACET 5/325 [Percocet 5 mg/325 mg] 1 - 2 each PO Q6H PRN #14 tablet PRN Reason: Pain Discharge Date/Time: 03/01/18 08:28
[2018-03-01] MEDS ORDERED: MORPHINE 2 MG/ML SYRINGE IVP STA ×2 (00:44→04:33)
[2018-03-01] MEDS ORDERED: IOPAMIDOL-300 100 ML VIAL ONE (01:16)
[2018-03-01] MEDS ORDERED: IOPAMIDOL-300 100 ML VIAL IVP ONE (01:55)
--- NOTE | 2018-03-01 02:32 | CT Preliminary Report ---
Exam: CT ABDOMEN/PELVIS W/ IMPRESSION: 1. Colitis involving the distalmost aspect of the transverse colon as well as the entire length of th e descending colon and proximal to midportion of the sigmoid colon. This is probably secondary to inf ectious colitis. Ischemic colitis is felt to be less likely considering lack of any significant aorti c, celiac, or SMA abnormality. Specifically, celiac and SMA are widely patent. 2. There is no evidence of wall obstruction. Prior appendectomy. 3. Multiple gallstones. 4. Mild to moderate intrahepatic and extrahepatic biliary dilation. Choledocholithiasis is noted. Com mon hepatic duct measures up to 17.7 mm. CBD measures up to 14 mm. [facility] SITE ID: [id number]
--- NOTE | 2018-03-01 02:40 | CT Report ---
EXAM: CT ABDOMEN AND PELVIS EXAM DATE: 03/01/2018 01:32 AM. CLINICAL HISTORY: Lower GI bleeding, left lower quadrant pain, nausea. COMPARISONS: None. TECHNIQUE: Routine helical CT imaging was performed through the abdomen and pelvis. IV contrast: 100 mL Isovue 300. Enteric contrast: No. Reconstructions: Coronal and sagittal. In accordance with CT protocol optimization, one or more of the following dose reduction techniques w ere utilized for this exam: automated exposure control, adjustment of mA and/or KV based on patient s ize, or use of iterative reconstructive technique. FINDINGS: ABDOMEN: Liver: There is a small low-density within liver segment-2 (image 18 series 3), difficult to accurate ly characterize. A few additional scattered subcentimeter low-density foci within the liver, also dif ficult to accurately characterize. Stomach/Distal Esophagus: No significant abnormality. Gallbladder: Multiple gallstones. Bile Ducts: Subtle filling defects noted within the CBD distally, representing choledocholithiasis. T here is mild intrahepatic biliary dilation as well as mild to moderate dilation of the CBD. Pancreas: No significant abnormality. Spleen: No significant abnormality. Kidneys: No suspicious solid appearing lesion. No hydronephrosis. Adrenals: No significant abnormality. Bowel: There is diffuse thickening of the descending colon and surrounding stranding. Mild thickening of the distalmost aspect of the transverse colon also noted. No evidence of pneumatosis. Minimal fec al residual within the cecum. Ascending colon is collapsed. Appendix: Surgically absent. Lymph Nodes: No pathologically enlarged nodes. Vasculature: Normal caliber aorta. Fluid: No significant free fluid. Abdominal Wall: No significant abnormality. Other: No significant abnormality. PELVIS: Uterus and Ovaries: No significant abnormality. Bladder: No significant abnormality. Lymph Nodes: No pathologically enlarged nodes. Fluid: No significant free fluid. Other: None. BONES: No suspicious bony lesions. Suspected possible hemangioma within the L2 vertebral body. LOWER CHEST: No significant consolidation or effusion. Linear subsegmental opacities within the lung bases bilaterally, suggestive of atelectasis. IMPRESSION: 1. Colitis involving the distalmost aspect of the transverse colon as well as the entire length of th e descending colon and proximal to midportion of the sigmoid colon. This is probably secondary to inf ectious colitis. Ischemic colitis is felt to be less likely considering lack of any significant aorti c, celiac, or SMA abnormality. Specifically, celiac and SMA are widely patent. 2. There is no evidence of bowel obstruction. Prior appendectomy. 3. Multiple gallstones. 4. Mild to moderate intrahepatic and extrahepatic biliary dilation. Choledocholithiasis is noted. Com mon hepatic duct measures up to 17.7 mm. CBD measures up to 14 mm. [facility] Referring Provider Line: [phone] SITE ID: [id number]
[2018-03-01] MEDS ORDERED: metroNIDAZOLE 500 MG/100 ML 500 MG/100 ML BAG IV ONE (04:31)
[2018-03-01] MEDS ORDERED: MORPHINE 2 MG/ML SYRINGE ONE (04:45)
[2018-03-01] MEDS ORDERED: oxyCODONE/ACET 5/325 Prepack 4 PO STA (06:04)
[2018-03-01 08:30] VITALS: BP 131/74
== END 2018-03-01 08:28 | disposition home or self-care (01) ==
LOC: EDUNIT# → ED 22:40
DX: K52.9 Noninfective gastroenteritis and colitis, unspecified (principal); K80.70 Calculus of gallbladder and bile duct without cholecystitis without obstruction; I10 Essential (primary) hypertension; E78.00 Pure hypercholesterolemia, unspecified; J44.9 Chronic obstructive pulmonary disease, unspecified; E11.9 Type 2 diabetes mellitus without complications; K21.9 Gastro-esophageal reflux disease without esophagitis; M79.7 Fibromyalgia; M19.90 Unspecified osteoarthritis, unspecified site; Z79.82 Long term (current) use of aspirin; F17.200 Nicotine dependence, unspecified, uncomplicated
CPT/HCPCS: 36415; 74177; 80053; 83690; 85025; 96365; 96375; 96376; 99284; J2270; Q9967

== ENCOUNTER 2018-03-04 15:10 | Outpatient (CLI) | payer MEDICARE, MEDICAID ==
[2018-03-04 18:59] LABS: BASOPHILS # (AUTO) 0.1 10^3/uL (0.0-0.1); BASOPHILS % (AUTO) 0.7 %; EOSINOPHILS # (AUTO) 0.4 10^3/uL (0.0-0.7); EOSINOPHILS % (AUTO) 2.8 %; HGB - HEMOGLOBIN 12.2 g/dL (12.0-16.0); LYMPHOCYTES # (AUTO) 1.8 10^3/uL (1.5-3.5); LYMPHOCYTES % (AUTO) 13.4 %; MEAN CORPUSCULAR HEMOGLOBIN 28.2 pg (27.0-31.0); MEAN CORPUSCULAR HGB CONC 32.6 g/dL (32.0-36.0); MEAN CORPUSCULAR VOLUME 86.6 fL (81.0-99.0); MEAN PLATELET VOLUME 8.1 fL (7.9-10.8); MONOCYTES # (AUTO) 0.8 10^3/uL (0.0-1.0); MONOCYTES % (AUTO) 5.8 %; NEUTROPHILS # (AUTO) 10.3 10^3/uL (1.5-6.6); NEUTROPHILS % (AUTO) 77.3 %; PLT - PLATELET COUNT 339 10^3/uL (130-450); RED BLOOD COUNT 4.32 10^6/uL (4.20-5.40); RED CELL DISTRIBUTION WIDTH 13.5 % (12.0-15.0); WHITE BLOOD COUNT 13.3 x10^3/uL (4.8-10.8)
[2018-03-04 19:17] LABS: ALBUMIN 3.7 g/dL (3.2-5.5); ALBUMIN/GLOBULIN RATIO 1.1 (1.0-2.2); BILIRUBIN,TOTAL 0.7 mg/dL (0.2-1.0); CALCIUM 8.9 mg/dL (8.5-10.3); CREATININE 0.5 mg/dL (0.4-1.0); TOTAL PROTEIN 7.2 g/dL (6.7-8.2)
== END 2018-03-04 15:11 | disposition home or self-care (01) ==
LOC: LAB.WCP 15:10
PROVIDERS: ATTEND Family Medicine
DX: K52.9 Noninfective gastroenteritis and colitis, unspecified (principal)
CPT/HCPCS: 36415; 80053; 85025

== ENCOUNTER 2018-03-10 09:41 | Outpatient (CLI) | payer MEDICARE, MEDICAID ==
[~2018-03-10 09:41] MED LIST: GADOBUTROL 10 MMOL/10 ML VIAL ONE; GADOBUTROL 7.5 MMOL/7.5 ML VIAL ONE
[2018-03-10] MEDS ORDERED: GADOBUTROL 7.5 MMOL/7.5 ML VIAL IVP ONE (10:53)
--- NOTE | 2018-03-10 15:49 | MRI Report ---
EXAM: MRI BRAIN WITHOUT AND WITH CONTRAST EXAM DATE: 03/10/2018 11:06 AM. CLINICAL HISTORY: Frequent falls and headache. COMPARISON: No prior MRI. TECHNIQUE: Multiplanar, multisequence T1-weighted and fluid-sensitive MR sequences of the brain were performed. Sequences optimized for routine evaluation. Other: None. IV Contrast: Without and with 7.5 mL Gadavist. FINDINGS: Brain Volume: Normal for age. Parenchyma: No acute hemorrhage or stroke. No mass effect or midline shift. No abnormal subdural flui d collection and no evidence for enhancing or space occupying intracranial mass. Minimal amorphous T2 hyperintensity at the margins of the lateral ventricles and in the brainstem. These are nonspecific findings and may be secondary to mild chronic microangiopathy. Ventricles/Cisterns: No hydrocephalus. No abnormal extra-axial fluid collection or hemorrhage. Orbits: Symmetric and unremarkable. Sella Turcica: The pituitary gland, cavernous sinuses, suprasellar cistern and optic chiasm are unrem arkable. IAC: Symmetric and unremarkable. Vasculature: Normal signal flow void is seen in the major arterial structures at the skull base. The dural sinuses are patent and enhance normally. Sinuses: No acute sinus disease. Bones: No focal pathologic appearing marrow signal changes. Other: None. IMPRESSION: 1. Minimal nonspecific white matter T2 hyperintense signal changes. 2. No acute abnormality or enhancing mass. 3. No hydrocephalus, significant brain volume loss or abnormal subdural fluid collection. [facility] Referring Provider Line: [phone] SITE ID: [id number]
== END 2018-03-10 09:42 | disposition home or self-care (01) ==
LOC: DI 09:41
PROVIDERS: ATTEND Family Medicine
DX: R51 Headache (principal); R29.6 Repeated falls
CPT/HCPCS: 70553; A9585

== ENCOUNTER 2018-04-11 09:25 | Emergency (ER) | payer MEDICARE, MEDICAID ==
[2018-04-11] MEDS ORDERED: ONDANSETRON 4 MG/2 ML VIAL IVP STA (10:15)
[2018-04-11] MEDS ORDERED: MORPHINE 10 MG/ML VIAL IVP STA (10:15)
[2018-04-11 10:42] LABS: BASOPHILS # (AUTO) 0.1 10^3/uL (0.0-0.1); BASOPHILS % (AUTO) 1.2 %; EOSINOPHILS # (AUTO) 0.4 10^3/uL (0.0-0.7); EOSINOPHILS % (AUTO) 5.1 %; HGB - HEMOGLOBIN 12.6 g/dL (12.0-16.0); LYMPHOCYTES # (AUTO) 2.2 10^3/uL (1.5-3.5); LYMPHOCYTES % (AUTO) 29.6 %; MEAN CORPUSCULAR HEMOGLOBIN 28.4 pg (27.0-31.0); MEAN CORPUSCULAR HGB CONC 33.1 g/dL (32.0-36.0); MEAN CORPUSCULAR VOLUME 85.6 fL (81.0-99.0); MEAN PLATELET VOLUME 7.4 fL (7.9-10.8); MONOCYTES # (AUTO) 0.4 10^3/uL (0.0-1.0); NEUTROPHILS # (AUTO) 4.4 10^3/uL (1.5-6.6); NEUTROPHILS % (AUTO) 59.1 %; PLT - PLATELET COUNT 275 10^3/uL (130-450); RED BLOOD COUNT 4.45 10^6/uL (4.20-5.40); RED CELL DISTRIBUTION WIDTH 13.8 % (12.0-15.0); WHITE BLOOD COUNT 7.5 x10^3/uL (4.8-10.8)
[2018-04-11 11:04] LABS: ALBUMIN 3.4 g/dL (3.2-5.5); ALBUMIN/GLOBULIN RATIO 0.8 (1.0-2.2); BILIRUBIN,TOTAL 0.3 mg/dL (0.2-1.0); CALCIUM 8.8 mg/dL (8.5-10.3); CREATININE 0.6 mg/dL (0.4-1.0); TOTAL PROTEIN 7.5 g/dL (6.7-8.2)
[2018-04-11] MEDS ORDERED: IOPAMIDOL-300 100 ML VIAL ONE (11:47)
--- NOTE | 2018-04-11 12:20 | CT Report ---
Procedure Date: 04/11/2018 Accession Number: [id number] / [id number] Procedure: CT - Abdomen/Pelvis W/ CPT Code: FULL RESULT: EXAM: CT ABDOMEN AND PELVIS EXAM DATE: 04/11/2018 11:48 AM. CLINICAL HISTORY: Injury RUQ abd from fall; very tender there. COMPARISONS: None. TECHNIQUE: Routine helical CT imaging was performed through the abdomen and pelvis. IV contrast: ISOVUE 300 100mL. Enteric contrast: No. Reconstructions: Coronal and sagittal. In accordance with CT protocol optimization, one or more of the following dose reduction techniques were utilized for this exam: automated exposure control, adjustment of mA and/or KV based on patient size, or use of iterative reconstructive technique. FINDINGS: Lung Bases: Unremarkable. Liver: Normal. No masses. Gallbladder/Bile Ducts: Multiple noncalcified stones in the gallbladder with dilatation of the common bile duct measuring up to 11 mm in diameter at the pancreatic head. No distal stone, mass or stricture identified. The pancreatic duct is unremarkable. Spleen: Normal. Pancreas: Normal. Adrenal Glands: Normal. Kidneys: Normal. No masses or hydronephrosis. Peritoneal Cavity/Bowel: Normal. No free fluid, free air or adenopathy. No masses or acute inflammatory process. The appendix is well visualized and normal. Pelvic Organs: Normal. The bladder and visualized pelvic organs are within normal limits. Vasculature: No aneurysms or other significant abnormality. Bones: No significant abnormality. Other: Subcutaneous fat stranding in the right flank (series 3, image 32). IMPRESSION: 1. No bowel obstruction or inflammatory process associated with the bowel. 2. The appendix images normally. 3. No free air or fluid in the abdomen or pelvis. 4. There is mild dilatation of the common bile duct with no distal mass, stone or stricture identified. Pancreatic duct is within normal limits. Multiple non-calcified stones in the gallbladder. 5. Fat stranding in the region of the right flank is thought to represent bruising. No hemorrhage or fluid collection. [facility]
[2018-04-11] MEDS ORDERED: IOPAMIDOL-300 100 ML VIAL IVP ONE (12:33)
[2018-04-11] MEDS ORDERED: MORPHINE 2 MG/ML SYRINGE IVP STA (12:41)
[2018-04-11] MEDS ORDERED: KETOROLAC 60 MG/2 ML VIAL IVP STA (12:41)
--- NOTE | 2018-04-11 12:53 | ED Physician Documentation ---
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 No: Spasm Worsened by: Moving, Palpating Associated symtptoms: No: Weakness, Numbness Contributing factors: No: Anticoagulated Where injury occured: Home Similar symptoms before: Has not had sx before Recently seen: Not recently seen Review of Systems Constitutional: denies: Fever Nose: denies: Rhinorrhea / runny nose, Congestion Throat: denies: Sore throat Respiratory: denies: Cough GI: reports: Abdominal Pain. 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 : Incontinence, Nocturia HEENT: Chronic vision loss, Other Psych: Anxiety, Bipolar disorder, Post traumatic stress disorder, Claustrophobia , Other Musculoskeletal: Osteoarthritis, Fibromyalgia, Chronic back pain Derm: None - Past Surgical History Past Surgical History: Yes General: Gastric surgery 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, Hysterectomy, Oophrectomy - Present Medications Home Medications: Ambulatory Orders Medication Instructions Recorded Confirmed Gabapentin [Neurontin] 1,200 mg PO TID 05/03/13 11/03/17 Omeprazole 20 mg PO BID 05/03/13 11/03/17 buPROPion [Wellbutrin Sr] 200 mg PO BID 05/03/13 11/03/17 clonazePAM [Clonazepam] 1 mg PO TID PRN 05/03/13 11/03/17 Estrogens, Conjugated [Premarin] 0.625 mg PO DAILY 03/14/15 11/03/17 Furosemide 20 mg PO DAILY 03/14/15 11/03/17 Amitriptyline [Elavil] 100 mg PO QPM 01/10/16 11/03/17 Duloxetine HCl 120 mg PO DAILY 01/10/16 11/03/17 Ibuprofen 800 mg PO TID PRN 01/10/16 11/03/17 Prazosin HCl [Minipress] 10 mg PO QPM 01/10/16 11/03/17 lamoTRIgine [LaMICtal] 200 mg PO DAILY 01/10/16 11/04/17 Hydroxyzine Pamoate [Vistaril] 50 mg PO TID PRN 01/23/17 11/03/17 Potassium Chloride 10 meq PO DAILY 01/23/17 11/03/17 Simvastatin [Zocor] 20 mg PO QPM 01/23/17 11/03/17 ARIPiprazole [Abilify] 5 mg PO DAILY 11/03/17 11/03/17 Aspirin 81 mg PO DAILY 11/03/17 11/03/17 Fluticasone [Flonase] 2 sprays MARKO DAILY PRN 11/03/17 11/03/17 Lisinopril 2.5 mg PO DAILY 11/03/17 11/03/17 Metformin HCl 500 mg PO BIDWM 11/03/17 11/03/17 Quetiapine Fumarate 50 mg PO QPM 11/03/17 11/03/17 Albuterol Sulfate [Proventil Hfa 1 - 2 puffs INH Q4H PRN #1 inhaler 11/06/17 Inhaler] Fluticasone/Salmeterol [Advair Hfa 8 gm IH BID #1 hfa.aer.ad 11/06/17 230-21 Mcg Inhaler] Levofloxacin [Levaquin] 750 mg PO DAILY 7 Days #7 tablet 11/06/17 Nicotine 21 mg Patch [Nicoderm] 1 patch TOP DAILY #14 patch 11/06/17 Saccharomyces Boulardii [Florastor] 250 mg PO BID 14 Days #28 capsule 11/06/17 guaiFENesin [Mucinex] 600 mg PO BID #30 tablet 11/06/17 predniSONE [Prednisone] 10 mg PO DAILY 6 Days #18 tab.ds.pk 11/06/17 Metronidazole [Flagyl] 500 mg PO Q8HR #20 tablet 03/01/18 oxyCODONE/ACET 5/325 [Percocet 5 1 - 2 each PO Q6H PRN #14 tablet 03/01/18 mg/325 mg] Naproxen 375 mg PO BID #20 tablet 04/11/18 Oxycodone HCl/Acetaminophen 1 each PO Q6H PRN #15 tablet 04/11/18 [Percocet 5-325 mg Tablet] - Allergies Allergies/Adverse Reactions: Allergies Allergy/AdvReac Type Severity Reaction Status Date / Time Sulfa (Sulfonamide Allergy oral Verified 02/28/18 22:45 Antibiotics) blisters - Social History Does the pt smoke?: Yes Smoking Status: Current every day smoker Does the pt drink ETOH?: No Does the pt have substance abuse?: Yes Substance Use and Type: Marijuana - Immunizations Immunizations are current?: Yes Immunizations: TDAP current <10years - POLST Patient has POLST: No POLST Status: Full Code PD ED PE NORMAL - Vitals Vital signs reviewed: Yes - General General: Alert and oriented X 3, No acute distress, Well developed/nourished - Neck Neck: Supple, no meningeal sign, No adenopathy - Cardiac Cardiac: RRR, No murmur - Respiratory Respiratory: Clear bilaterally - Abdomen Abdomen: Normal bowel sounds, Soft, Non distended, No organomegaly, Other ( tender RUQ with local guarding, but no rebound nor percussion tenderness. ) - Back Back: No CVA TTP, No spinal TTP - Derm Derm: Normal color, Warm and dry - Neuro Neuro: Alert and oriented X 3, No motor deficit, Normal speech Results - Vitals Vitals: Oxygen O2 Source [With Activity] Nasal cannula O2 Source Nasal cannula - Labs Labs: Laboratory Tests 04/11/18 04/11/18 10:35 10:35 WBC 7.5 RBC 4.45 Hgb 12.6 Hct 38.1 MCV 85.6 MCH 28.4 MCHC 33.1 RDW 13.8 Plt Count 275 MPV 7.4 L Neut # (Auto) 4.4 Lymph # (Auto) 2.2 [place] # (Auto) 0.4 Eos # (Auto) 0.4 Baso # (Auto) 0.1 Absolute Nucleated RBC 0.00 Nucleated RBC % 0.0 Sodium 137 Potassium 4.3 Chloride 99 L Carbon Dioxide 30 Anion Gap 8.0 BUN 10 Creatinine 0.6 Estimated GFR (MDRD) 103 Glucose 98 Calcium 8.8 Total Bilirubin 0.3 AST 30 ALT 22 Alkaline Phosphatase 100 Total Protein 7.5 Albumin 3.4 Globulin 4.1 Albumin/Globulin Ratio 0.8 L Lipase 32 - Rads (name of study) abd CT Radiology: Prelim report reviewed (no organ injury nor free fluid. ) PD MEDICAL DECISION MAKING - ED course Complexity details: considered differential (concern for splenic/intraabdominal injury, so will get CT scan. ), d/w patient - Sepsis Event Vital Signs: Oxygen O2 Source [With Activity] Nasal cannula O2 Source Nasal cannula Departure - Departure Disposition: 01 Home, Self Care Clinical Impression: Abdominal wall contusion Qualifiers: Encounter type: initial encounter Qualified Code(s): S30.1XXA - Contusion of abdominal wall, initial encounter Accidental fall Qualifiers: Encounter type: initial encounter Qualified Code(s): W19.XXXA - Unspecified fall, initial encounter Condition: Stable Record reviewed to determine appropriate education?: Yes Instructions: ED Contusion Soft Tissue Follow-Up: Jerry Beaulieu MD [Primary Care Provider] - Prescriptions: Naproxen 375 mg PO BID #20 tablet Oxycodone HCl/Acetaminophen [Percocet 5-325 mg Tablet] 1 each PO Q6H PRN #15 tablet PRN Reason: Pain Comments: It appears to be just bruising in the wall of the abdomen. There is no internal organ injury on CT scan. This will be sore for several more days still most likely. He can use some ibuprofen or naproxen 2-3 times a day. Add Tylenol or Percocet if needed for pains. Recheck if not improved over the next several days still. Discharge Date/Time: 04/11/18 13:37
[2018-04-11] MEDS ORDERED: oxyCOD/ACETAMIN 5 MG/325 MG TABLET PO STA (13:19)
[2018-04-11 13:43] VITALS: BP 101/66
== END 2018-04-11 13:37 | disposition home or self-care (01) ==
LOC: ED 09:25
DX: S30.1XXA Contusion of abdominal wall, initial encounter (principal); I10 Essential (primary) hypertension; E11.9 Type 2 diabetes mellitus without complications; F17.200 Nicotine dependence, unspecified, uncomplicated; Z79.84 Long term (current) use of oral hypoglycemic drugs; Z79.82 Long term (current) use of aspirin; W19.XXXA Unspecified fall, initial encounter
CPT/HCPCS: 36415; 74177; 80053; 83690; 85025; 96374; 96375; 96376; 99283; 99284; A9270; J2270; Q9967

== ENCOUNTER 2018-04-23 12:35 | Outpatient (CLI) | payer MEDICARE, MEDICAID | END 2018-04-23 12:36 | disposition critical access hospital (66) | LOC: EMS 12:35 | PROVIDERS: ATTEND Surgery | DX: M79.622 Pain in left upper arm (principal); W01.198A Fall on same level from slipping, tripping and stumbling with subsequent striking against other object, initial encounter; Y93.01 Activity, walking, marching and hiking; Y92.030 Kitchen in apartment as the place of occurrence of the external cause | CPT/HCPCS: A0425; A0429 ==

== ENCOUNTER 2018-04-23 13:05 | Emergency (ER) | payer MEDICARE, MEDICAID ==
--- NOTE | 2018-04-23 13:15 | ED Physician Documentation ---
PD HPI UPPER EXT INJURY - Stated complaint Stated Complaint: GLF - Chief complaint Chief Complaint: Ext Problem - History obtained from History obtained from: Patient - History of Present Illness Location: Left, Arm (She fell against her refrigerator and then fell down injuring the left upper extremity. No other injuries. She is able to walk and bear weight. She says she does fall on usually uses a walker. She has multiple comorbidities for her age including COPD and psychiatric illness. No head injury. No loss of consciousness.) Review of Systems Cardiac: reports: Chest pain / pressure (Persistent pain from injuring her chest a few weeks ago in a fall.). denies: Palpitations GI: denies: Abdominal Pain Musculoskeletal: denies: Neck pain, Back pain PD PAST MEDICAL HISTORY - Past Medical History Cardiovascular: Hypertension, High cholesterol Respiratory: COPD, Emphysema, Shortness of breath, Sleep apnea, Other Endocrine/Autoimmune: Type 2 diabetes GI: GERD, Hiatal hernia [employer] H[employer] H[employer]IVER: Other : Incontinence, Nocturia HEENT: Chronic vision loss, Other Psych: Anxiety, Bipolar disorder, Post traumatic stress disorder, Claustrophobia , Other Musculoskeletal: Osteoarthritis, Fibromyalgia, Chronic back pain Derm: None - Past Surgical History Past Surgical History: Yes General: Gastric surgery 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, Hysterectomy, Oophrectomy - Present Medications Home Medications: Ambulatory Orders Medication Instructions Recorded Confirmed Gabapentin [Neurontin] 1,200 mg PO TID 05/03/13 11/03/17 Omeprazole 20 mg PO BID 05/03/13 11/03/17 buPROPion [Wellbutrin Sr] 200 mg PO BID 05/03/13 11/03/17 clonazePAM [Clonazepam] 1 mg PO TID PRN 05/03/13 11/03/17 Estrogens, Conjugated [Premarin] 0.625 mg PO DAILY 03/14/15 11/03/17 Furosemide 20 mg PO DAILY 03/14/15 11/03/17 Amitriptyline [Elavil] 100 mg PO QPM 01/10/16 11/03/17 Duloxetine HCl 120 mg PO DAILY 01/10/16 11/03/17 Ibuprofen 800 mg PO TID PRN 01/10/16 11/03/17 Prazosin HCl [Minipress] 10 mg PO QPM 01/10/16 11/03/17 lamoTRIgine [LaMICtal] 200 mg PO DAILY 01/10/16 11/04/17 Hydroxyzine Pamoate [Vistaril] 50 mg PO TID PRN 01/23/17 11/03/17 Potassium Chloride 10 meq PO DAILY 01/23/17 11/03/17 Simvastatin [Zocor] 20 mg PO QPM 01/23/17 11/03/17 ARIPiprazole [Abilify] 5 mg PO DAILY 11/03/17 11/03/17 Aspirin 81 mg PO DAILY 11/03/17 11/03/17 Fluticasone [Flonase] 2 sprays MARKO DAILY PRN 11/03/17 11/03/17 Lisinopril 2.5 mg PO DAILY 11/03/17 11/03/17 Metformin HCl 500 mg PO BIDWM 11/03/17 11/03/17 Quetiapine Fumarate 50 mg PO QPM 11/03/17 11/03/17 Albuterol Sulfate [Proventil Hfa 1 - 2 puffs INH Q4H PRN #1 inhaler 11/06/17 Inhaler] Fluticasone/Salmeterol [Advair Hfa 8 gm IH BID #1 hfa.aer.ad 11/06/17 230-21 Mcg Inhaler] Levofloxacin [Levaquin] 750 mg PO DAILY 7 Days #7 tablet 11/06/17 Nicotine 21 mg Patch [Nicoderm] 1 patch TOP DAILY #14 patch 11/06/17 Saccharomyces Boulardii [Florastor] 250 mg PO BID 14 Days #28 capsule 11/06/17 guaiFENesin [Mucinex] 600 mg PO BID #30 tablet 11/06/17 predniSONE [Prednisone] 10 mg PO DAILY 6 Days #18 tab.ds.pk 11/06/17 Metronidazole [Flagyl] 500 mg PO Q8HR #20 tablet 03/01/18 oxyCODONE/ACET 5/325 [Percocet 5 1 - 2 each PO Q6H PRN #14 tablet 03/01/18 mg/325 mg] Naproxen 375 mg PO BID #20 tablet 04/11/18 Oxycodone HCl/Acetaminophen 1 each PO Q6H PRN #15 tablet 04/11/18 [Percocet 5-325 mg Tablet] HYDROcod/ACETAM 5/325 [[place] 5/325] 1 - 2 ea PO Q6H PRN #7 tablet 04/23/18 - Allergies Allergies/Adverse Reactions: Allergies Allergy/AdvReac Type Severity Reaction Status Date / Time Sulfa (Sulfonamide Allergy oral Verified 02/28/18 22:45 Antibiotics) blisters - Social History Does the pt smoke?: Yes Smoking Status: Current every day smoker Does the pt drink ETOH?: No Does the pt have substance abuse?: Yes - Immunizations Immunizations are current?: Yes Immunizations: TDAP current <10years - POLST Patient has POLST: No POLST Status: Full Code PD ED PE NORMAL - Vitals Vital signs reviewed: Yes - General General: Alert and oriented X 3, No acute distress - HEENT HEENT: PERRL, EOMI - Neck Neck: Supple, no meningeal sign, No bony TTP - Extremities Extremities: Other (Mildly tender over the upper humerus with a bruise there forming and also tender over the left mid ulna with ecchymosis there as well. No deformities or limited range of motion. The remainder her extremities are palpated and ranged and nontender with full range of motion.) - Neuro Neuro: Alert and oriented X 3, Normal speech Results - Vitals Vitals: Vital Signs - 24 hr 04/23/18 13:06 Temperature 36.9 C Heart Rate 67 Respiratory 18 Rate Blood Pressure 136/72 H O2 Saturation 94 Oxygen O2 Source [] Nasal cannula O2 Source Room air - Rads (name of study) 2v L forearm Radiology: EMP read contemporaneously (no frx.) L shoulder XR Radiology: EMP read contemporaneously (severe DJD/OA, no frx) L humerus Radiology: EMP read contemporaneously (DJD/OA, no frx) PD MEDICAL DECISION MAKING - Sepsis Event Vital Signs: Vital Signs - 24 hr 04/23/18 13:06 Temperature 36.9 C Heart Rate 67 Respiratory 18 Rate Blood Pressure 136/72 H O2 Saturation 94 Oxygen O2 Source [] Nasal cannula O2 Source Room air Departure - Departure Disposition: 01 Home, Self Care Clinical Impression: Contusion of left forearm Qualifiers: Encounter type: initial encounter Qualified Code(s): S50.12XA - Contusion of left forearm, initial encounter Contusion of left shoulder Qualifiers: Encounter type: initial encounter Qualified Code(s): S40.012A - Contusion of left shoulder, initial encounter Accidental fall Qualifiers: Encounter type: initial encounter Qualified Code(s): W19.XXXA - Unspecified fall, initial encounter Condition: Good Record reviewed to determine appropriate education?: Yes Instructions: ED Contusion Soft Tissue Prescriptions: HYDROcod/ACETAM 5/325 [[place] 5/325] 1 - 2 ea PO Q6H PRN #7 tablet PRN Reason: Pain Comments: Call your doctor to arrange a follow-up appointment, make the next available appointment. In the interim, return anytime if worse or if new symptoms develop. Your blood pressure was elevated today on check into the emergency department. This does not mean that you have hypertension, it is a common phenomenon to come to the emergency department and have elevated blood pressure. I recommend that you see your primary care physician within the week to have it rechecked when you are feeling better.
[2018-04-23] MEDS: HYDROcod/ACETAM 5/325 MG TABLET PO STA (13:16)
--- NOTE | 2018-04-23 14:19 | XRAY Report ---
Procedure Date: 04/23/2018 Accession Number: [id number] / [id number] Procedure: XR - Forearm LT CPT Code: FULL RESULT: EXAM: LEFT FOREARM RADIOGRAPHY EXAM DATE: 04/23/2018 01:51 PM. CLINICAL HISTORY: Fall, L arm injury/pain. COMPARISON: HUMERUS LT 04/23/2018. TECHNIQUE: 2 views. FINDINGS: Bones: Normal. No fractures or bone lesions. Joints: Normal. No effusions or subluxations in the visualized wrist or elbow joints. Soft Tissues: There is mild focal soft tissue swelling over the dorsum of the forearm. IMPRESSION: No acute osseous abnormality of the forearm. There is mild soft tissue swelling over the dorsum of the forearm. RADIA
--- NOTE | 2018-04-23 14:22 | XRAY Report ---
Procedure Date: 04/23/2018 Accession Number: [id number] / [id number] Procedure: XR - Shoulder 3 View LT CPT Code: FULL RESULT: EXAM: LEFT SHOULDER RADIOGRAPHY EXAM DATE: 04/23/2018 01:47 PM. CLINICAL HISTORY: Fall, L arm inj. COMPARISON: SHOULDER 3 VIEW LT 06/29/2014 HUMERUS LT 04/23/2018. TECHNIQUE: 3 views. FINDINGS: Bones: Normal. No fracture or bone lesion. Joints: The glenohumeral and acromioclavicular joints are normally aligned. There is moderate degenerative osteoarthritis of the acromioclavicular joint. There is severe degenerative osteoarthritis of the glenohumeral joint, similar to 05/12/2016. Soft tissues: The visualized hemithorax is unremarkable. No soft tissue swelling. IMPRESSION: 1. No acute osseous abnormality. 2. Severe degenerative osteoarthritis of the glenohumeral joint and moderate degenerative osteoarthritis at the acromioclavicular joint. RADIA
--- NOTE | 2018-04-23 14:23 | XRAY Report ---
Procedure Date: 04/23/2018 Accession Number: [id number] / [id number] Procedure: XR - Humerus LT CPT Code: FULL RESULT: EXAM: LEFT HUMERUS RADIOGRAPHY EXAM DATE: 04/23/2018 01:50 PM. CLINICAL HISTORY: Fall, L arm injury/pain. COMPARISON: FOREARM LT 04/23/2018 SHOULDER 3 VIEW LT 04/23/2018. TECHNIQUE: 2 views. FINDINGS: Bones: Normal. No fractures or bone lesions. Joints: No subluxation. There is severe degenerative change of the glenohumeral joint and moderate urinary change of the acromioclavicular joint. Soft Tissues: Normal. No soft tissue swelling. IMPRESSION: 1. No acute osseous abnormality of humerus. 2. Severe degenerative arthritis of the glenohumeral joint and moderate degenerative osteoarthritis of the acromioclavicular joint, as seen on shoulder radiographs. RADIA
[2018-04-23 15:22] VITALS: BP 104/63
== END 2018-04-23 15:30 | disposition home or self-care (01) ==
LOC: ED 13:05
DX: S50.12XA Contusion of left forearm, initial encounter (principal); S40.012A Contusion of left shoulder, initial encounter; I10 Essential (primary) hypertension; E11.9 Type 2 diabetes mellitus without complications; F17.200 Nicotine dependence, unspecified, uncomplicated; Z79.82 Long term (current) use of aspirin; Z79.84 Long term (current) use of oral hypoglycemic drugs; W01.198A Fall on same level from slipping, tripping and stumbling with subsequent striking against other object, initial encounter; Z91.81 History of falling; Y92.000 Kitchen of unspecified non-institutional (private) residence as the place of occurrence of the external cause
CPT/HCPCS: 73030; 73060; 73090; 99283; A9270

== ENCOUNTER 2018-05-26 06:07 | Day surgery (SDC) | payer MEDICARE, MEDICAID ==
[~2018-05-26 06:07] MED LIST changes: +ETOMIDATE 40 MG/20 ML VIAL IVP ONE; -GADOBUTROL 10 MMOL/10 ML VIAL ONE; -GADOBUTROL 7.5 MMOL/7.5 ML VIAL ONE; +LIDOCAINE-MPF 2% 5 ML VIAL IM ONE; +MIDAZOLAM 2 MG/2 ML VIAL IVP ONE; +PROPOFOL 200 MG/20 ML VIAL IVP ONE
[2018-05-26] MEDS ORDERED: LACTATED RINGERS 1,000 ML IV ONE (06:46)
--- NOTE | 2018-05-26 07:18 | ANESTHESIA ---
Pre-Anesthesia VS, & Labs - Diagnosis GERD, abnormal CT of Colon - Procedure Upper and lower endoscopy Vital Signs: Temp Pulse Resp BP Pulse Ox 36.6 C 16 110/82 H 97 05/26/18 06:28 05/26/18 06:28 05/26/18 06:28 05/26/18 06:28 Height 5 ft 2 in Weight (kg) 86.1 kg Body Mass Index 34.0 - NPO >8 hours - Is Patient ?: No, Not Applicable Home Medications and Allergies Home Medications: Ambulatory Orders Medication Instructions Recorded Confirmed Gabapentin [Neurontin] 1,200 mg PO TID 05/03/13 11/03/17 Omeprazole 20 mg PO BID 05/03/13 11/03/17 buPROPion [Wellbutrin Sr] 200 mg PO BID 05/03/13 11/03/17 clonazePAM [Clonazepam] 1 mg PO TID PRN 05/03/13 11/03/17 Estrogens, Conjugated [Premarin] 0.625 mg PO DAILY 03/14/15 11/03/17 Furosemide 20 mg PO DAILY 03/14/15 11/03/17 Amitriptyline [Elavil] 100 mg PO QPM 01/10/16 11/03/17 Duloxetine HCl 120 mg PO DAILY 01/10/16 11/03/17 Ibuprofen 800 mg PO TID PRN 01/10/16 11/03/17 Prazosin HCl [Minipress] 10 mg PO QPM 01/10/16 11/03/17 lamoTRIgine [LaMICtal] 200 mg PO DAILY 01/10/16 11/04/17 Hydroxyzine Pamoate [Vistaril] 50 mg PO TID PRN 01/23/17 11/03/17 Potassium Chloride 10 meq PO DAILY 01/23/17 11/03/17 Simvastatin [Zocor] 20 mg PO QPM 01/23/17 11/03/17 ARIPiprazole [Abilify] 5 mg PO DAILY 11/03/17 11/03/17 Aspirin 81 mg PO DAILY 11/03/17 11/03/17 Fluticasone [Flonase] 2 sprays MARKO DAILY PRN 11/03/17 11/03/17 Lisinopril 2.5 mg PO DAILY 11/03/17 11/03/17 Metformin HCl 500 mg PO BIDWM 11/03/17 11/03/17 Quetiapine Fumarate 50 mg PO QPM 11/03/17 11/03/17 Albuterol Sulfate [Proventil Hfa 1 - 2 puffs INH Q4H PRN #1 inhaler 11/06/17 Inhaler] Fluticasone/Salmeterol [Advair Hfa 8 gm IH BID #1 hfa.aer.ad 11/06/17 230-21 Mcg Inhaler] Levofloxacin [Levaquin] 750 mg PO DAILY 7 Days #7 tablet 11/06/17 Nicotine 21 mg Patch [Nicoderm] 1 patch TOP DAILY #14 patch 11/06/17 Saccharomyces Boulardii [Florastor] 250 mg PO BID 14 Days #28 capsule 11/06/17 guaiFENesin [Mucinex] 600 mg PO BID #30 tablet 11/06/17 predniSONE [Prednisone] 10 mg PO DAILY 6 Days #18 tab.ds.pk 11/06/17 Metronidazole [Flagyl] 500 mg PO Q8HR #20 tablet 03/01/18 oxyCODONE/ACET 5/325 [Percocet 5 1 - 2 each PO Q6H PRN #14 tablet 03/01/18 mg/325 mg] Naproxen 375 mg PO BID #20 tablet 04/11/18 Oxycodone HCl/Acetaminophen 1 each PO Q6H PRN #15 tablet 04/11/18 [Percocet 5-325 mg Tablet] HYDROcod/ACETAM 5/325 [[place] 5/325] 1 - 2 ea PO Q6H PRN #7 tablet 04/23/18 Allergies/Adverse Reactions: Allergies Allergy/AdvReac Type Severity Reaction Status Date / Time Sulfa (Sulfonamide Allergy oral Verified 02/28/18 22:45 Antibiotics) blisters Anes History & Medical History - Anesthetic History Anesthesia Complications: reports: Post-Operative Nausea/Vomiting - Medical History Cardiovascular: reports: Hypertension, High cholesterol Pulmonary: reports: COPD (home O2 use at night at 2L), Emphysema, Shortness of breath, Sleep apnea, Other Gastrointestinal: reports: GERD, Hiatal hernia Urinary: reports: Incontinence, Renal insuffiency, Nocturia Musculoskeletal: reports: Osteoarthritis, Fibromyalgia, Chronic back pain Endocrine/Autoimmune: reports: Type 2 diabetes Skin: reports: None Smoking Status: Current every day smoker - Surgical History General: Gastric surgery Gynecologic: section, Hysterectomy, Oophrectomy Orthopedic: Spine surgery Exam General: Alert Dental: Dentures full Upper, Dentures full Lower Mouth Openin Fingerbreadth Neck Mobility: Normal Mallampati classification: III Respiratory: Lungs clear Cardiovascular: Regular rate Mental/Cognitive Status: Alert/Oriented X3 Plan Anesthesia Type: MAC Consent for Procedure(s) Verified and Reviewed: Yes Code Status: Attempt Resuscitation ASA classification: 3-Severe systemic disease Is this case an emergency?: No
[2018-05-26 09:25] VITALS: BP 128/69
== END 2018-05-26 06:08 | disposition home or self-care (01) ==
LOC: SDS 06:07
PROVIDERS: ATTEND Internal Medicine Gastroenterology
PROC: 0DBN8ZZ Excision of Sigmoid Colon, Via Natural or Artificial Opening Endoscopic (ICD-10-PCS; 2018-05-26)
PROC: 0DB68ZX Excision of Stomach, Via Natural or Artificial Opening Endoscopic, Diagnostic (ICD-10-PCS; principal; 2018-05-26 07:30)
PROC: 0DB78ZX Excision of Stomach, Pylorus, Via Natural or Artificial Opening Endoscopic, Diagnostic (ICD-10-PCS; 2018-05-26 07:30)
DX: K62.5 Hemorrhage of anus and rectum (principal); R93.3 Abnormal findings on diagnostic imaging of other parts of digestive tract; K21.9 Gastro-esophageal reflux disease without esophagitis; K25.9 Gastric ulcer, unspecified as acute or chronic, without hemorrhage or perforation; K31.9 Disease of stomach and duodenum, unspecified; D12.5 Benign neoplasm of sigmoid colon; Q43.8 Other specified congenital malformations of intestine; F17.210 Nicotine dependence, cigarettes, uncomplicated; E11.22 Type 2 diabetes mellitus with diabetic chronic kidney disease; N18.2 Chronic kidney disease, stage 2 (mild); E66.9 Obesity, unspecified; G47.30 Sleep apnea, unspecified; I12.9 Hypertensive chronic kidney disease with stage 1 through stage 4 chronic kidney disease, or unspecified chronic kidney disease; J43.9 Emphysema, unspecified; K44.9 Diaphragmatic hernia without obstruction or gangrene; Z99.81 Dependence on supplemental oxygen; Z79.899 Other long term (current) drug therapy; Z79.82 Long term (current) use of aspirin; Z79.84 Long term (current) use of oral hypoglycemic drugs; Z68.34 Body mass index [BMI] 34.0-34.9, adult
CPT/HCPCS: 43239; 45380; 87081; J7120

== ENCOUNTER 2018-06-14 11:14 | Outpatient (CLI) | payer MEDICARE, MEDICAID ==
[2018-06-14 11:42] LABS: BASOPHILS % (AUTO) 0.4 %; EOSINOPHILS # (AUTO) 0.4 10^3/uL (0.0-0.7); LYMPHOCYTES # (AUTO) 2.2 10^3/uL (1.5-3.5); LYMPHOCYTES % (AUTO) 35.3 %; MEAN CORPUSCULAR HEMOGLOBIN 26.7 pg (27.0-31.0); MEAN CORPUSCULAR HGB CONC 33.2 g/dL (32.0-36.0); MEAN CORPUSCULAR VOLUME 80.4 fL (81.0-99.0); MEAN PLATELET VOLUME 7.7 fL (7.9-10.8); MONOCYTES # (AUTO) 0.3 10^3/uL (0.0-1.0); MONOCYTES % (AUTO) 5.2 %; NEUTROPHILS # (AUTO) 3.2 10^3/uL (1.5-6.6); NEUTROPHILS % (AUTO) 52.1 %; PLT - PLATELET COUNT 278 10^3/uL (130-450); RED BLOOD COUNT 4.49 10^6/uL (4.20-5.40); RED CELL DISTRIBUTION WIDTH 14.6 % (12.0-15.0); WHITE BLOOD COUNT 6.2 x10^3/uL (4.8-10.8)
[2018-06-14 11:59] LABS: ALBUMIN 3.9 g/dL (3.2-5.5); BILIRUBIN,TOTAL 0.2 mg/dL (0.2-1.0); CALCIUM 8.9 mg/dL (8.5-10.3); CREATININE 0.7 mg/dL (0.4-1.0); TOTAL PROTEIN 7.9 g/dL (6.7-8.2)
== END 2018-06-14 11:15 | disposition home or self-care (01) ==
LOC: LAB 11:14
PROVIDERS: ATTEND Internal Medicine Gastroenterology
DX: K80.50 Calculus of bile duct without cholangitis or cholecystitis without obstruction (principal)
CPT/HCPCS: 36415; 80053; 83690; 85025

== ENCOUNTER 2018-06-20 11:20 | Emergency (ER) | payer MEDICARE, MEDICAID ==
[2018-06-20] MEDS ORDERED: oxyCODONE 5 MG TABLET PO STA (14:18)
--- NOTE | 2018-06-20 14:23 | ED Physician Documentation ---
PD HPI BACK INJURY - Stated complaint Stated Complaint: GLF/BACK PX - History obtained from History obtained from: Patient, Caregiver - History of Present Illness Location: Lower (She was in her bathroom 2 days ago hanging a picture and fell. She hit her back against the toilet and has severe pain there. No other injuries. No head or neck injury. 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 : Incontinence, Renal insuffiency, Nocturia HEENT: Chronic vision loss Psych: Anxiety, Bipolar disorder, Post traumatic stress disorder, Claustrophobia, Other Musculoskeletal: Osteoarthritis, Fibromyalgia, Chronic back pain Derm: None - Past Surgical History Past Surgical History: Yes General: Gastric surgery 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, Hysterectomy, Oophrectomy - Present Medications Home Medications: Ambulatory Orders Medication Instructions Recorded Confirmed Gabapentin [Neurontin] 1,200 mg PO TID 05/03/13 11/03/17 Omeprazole 20 mg PO BID 05/03/13 11/03/17 buPROPion [Wellbutrin Sr] 200 mg PO BID 05/03/13 11/03/17 clonazePAM [Clonazepam] 1 mg PO TID PRN 05/03/13 11/03/17 Estrogens, Conjugated [Premarin] 0.625 mg PO DAILY 03/14/15 11/03/17 Furosemide 20 mg PO DAILY 03/14/15 11/03/17 Amitriptyline [Elavil] 100 mg PO QPM 01/10/16 11/03/17 Duloxetine HCl 120 mg PO DAILY 01/10/16 11/03/17 Ibuprofen 800 mg PO TID PRN 01/10/16 11/03/17 Prazosin HCl [Minipress] 10 mg PO QPM 01/10/16 11/03/17 lamoTRIgine [LaMICtal] 200 mg PO DAILY 01/10/16 11/04/17 Hydroxyzine Pamoate [Vistaril] 50 mg PO TID PRN 01/23/17 11/03/17 Potassium Chloride 10 meq PO DAILY 01/23/17 11/03/17 Simvastatin [Zocor] 20 mg PO QPM 01/23/17 11/03/17 ARIPiprazole [Abilify] 5 mg PO DAILY 11/03/17 11/03/17 Aspirin 81 mg PO DAILY 11/03/17 11/03/17 Fluticasone [Flonase] 2 sprays MARKO DAILY PRN 11/03/17 11/03/17 Lisinopril 2.5 mg PO DAILY 11/03/17 11/03/17 Metformin HCl 500 mg PO BIDWM 11/03/17 11/03/17 Quetiapine Fumarate 50 mg PO QPM 11/03/17 11/03/17 Albuterol Sulfate [Proventil Hfa 1 - 2 puffs INH Q4H PRN #1 inhaler 11/06/17 Inhaler] Fluticasone/Salmeterol [Advair Hfa 8 gm IH BID #1 hfa.aer.ad 11/06/17 230-21 Mcg Inhaler] Levofloxacin [Levaquin] 750 mg PO DAILY 7 Days #7 tablet 11/06/17 Nicotine 21 mg Patch [Nicoderm] 1 patch TOP DAILY #14 patch 11/06/17 Saccharomyces Boulardii [Florastor] 250 mg PO BID 14 Days #28 capsule 11/06/17 guaiFENesin [Mucinex] 600 mg PO BID #30 tablet 11/06/17 predniSONE [Prednisone] 10 mg PO DAILY 6 Days #18 tab.ds.pk 11/06/17 Metronidazole [Flagyl] 500 mg PO Q8HR #20 tablet 03/01/18 oxyCODONE/ACET 5/325 [Percocet 5 1 - 2 each PO Q6H PRN #14 tablet 03/01/18 mg/325 mg] Naproxen 375 mg PO BID #20 tablet 04/11/18 Oxycodone HCl/Acetaminophen 1 each PO Q6H PRN #15 tablet 04/11/18 [Percocet 5-325 mg Tablet] HYDROcod/ACETAM 5/325 [[place] 5/325] 1 - 2 ea PO Q6H PRN #7 tablet 04/23/18 Hydrocodone/Acetaminophen 1 - 2 each PO Q6H PRN #20 tablet 06/20/18 [Hydrocodon-Acetaminophen 5-325] - Allergies Allergies/Adverse Reactions: Allergies Allergy/AdvReac Type Severity Reaction Status Date / Time Sulfa (Sulfonamide Allergy oral Verified 06/20/18 11:32 Antibiotics) blisters - Social History Does the pt smoke?: Yes Smoking Status: Current every day smoker Does the pt drink ETOH?: No Does the pt have substance abuse?: Yes - Immunizations Immunizations are current?: Yes Immunizations: TDAP current <10years - POLST Patient has POLST: No POLST Status: Full Code PD ED PE NORMAL - Vitals Vital signs reviewed: Yes - General General: Alert and oriented X 3, No acute distress - Neck Neck: Supple, no meningeal sign, No bony TTP - Back Back: Other (She has a palm sized bruise just to the right of the upper lumbar spine and some midline tenderness of the lower thoracic and upper lumbar spine.) - Neuro Neuro: Alert and oriented X 3, Normal speech - Psych Psych: Normal mood, Normal affect Results - Vitals Vitals: Vital Signs - 24 hr 06/20/18 11:27 Heart Rate 87 Respiratory 78 H Rate Blood Pressure 128/99 H O2 Saturation 97 Oxygen O2 Source [] Nasal cannula O2 Source Room air - EKG (time done) 1432 Rate: Rate (enter#) (82) Rhythm: NSR [place]: Normal Intervals: Normal CT QRS: Normal Ischemia: Normal ST segments Computer interpretation: Agree with computer - Labs Labs: Laboratory Tests 06/20/18 06/20/18 14:33 14:33 WBC 8.3 RBC 4.54 Hgb 12.2 Hct 36.7 L MCV 80.7 L MCH 26.8 L MCHC 33.2 RDW 15.0 Plt Count 303 MPV 7.7 L Neut # (Auto) 5.0 Lymph # (Auto) 2.3 Alfalfa # (Auto) 0.4 Eos # (Auto) 0.5 Baso # (Auto) 0.1 Absolute Nucleated RBC 0.00 Nucleated RBC % 0.0 Sodium 136 Potassium 4.0 Chloride 97 L Carbon Dioxide 30 Anion Gap 9.0 BUN 16 Creatinine 0.8 Estimated GFR (MDRD) 74 L Glucose 132 H Calcium 8.8 Total Bilirubin < 0.2 L AST 30 ALT 26 Alkaline Phosphatase 125 H Total Protein 8.0 Albumin 3.8 Globulin 4.2 Albumin/Globulin Ratio 0.9 L Lipase 33 - Rads (name of study) T and L spine XRs Radiology: EMP read contemporaneously (Likely new mild L1 compression fracture, chronic disease in the back and the lungs.) PD MEDICAL DECISION MAKING - ED course ED course: The patient and family were counseled as to the diagnosis and need for follow- up. I counseled the patient with regard to signs and symptoms that would nec essitate an urgent reevaluation in the emergency department. They understand they are welcome to return at any time if worse or if not improving as expected. This document was made in part using voice recognition software. While efforts are made to proofread this documents, sound alike and grammatical errors may occur. - Sepsis Event Vital Signs: Vital Signs - 24 hr 06/20/18 11:27 Heart Rate 87 Respiratory 78 H Rate Blood Pressure 128/99 H O2 Saturation 97 Oxygen O2 Source [] Nasal cannula O2 Source Room air Departure - Departure Disposition: 01 Home, Self Care Clinical Impression: Back pain Qualifiers: Back pain location: low back pain Chronicity: acute Back pain laterality: midline Sciatica presence: without sciatica Qualified Code(s): M54.5 - Low back pain Accidental fall Qualifiers: Encounter type: initial encounter Qualified Code(s): W19.XXXA - Unspecified fall, initial encounter Compression fracture of L1 lumbar vertebra Qualifiers: Encounter type: initial encounter Fracture type: closed Qualified Code(s): S32.010A - Wedge compression fracture of first lumbar vertebra, initial encounter for closed fracture Condition: Good Record reviewed to determine appropriate education?: Yes Instructions: ED Fx Comp Vertebral Prescriptions: Hydrocodone/Acetaminophen [Hydrocodon-Acetaminophen 5-325] 1 - 2 each PO Q6H PRN #20 tablet PRN Reason: pain Comments: Do not drink or drive while taking narcotic pain medication. Note that many narcotic pain relievers also contain Tylenol/acetaminophen. Please ensure that your total dose of acetaminophen from all sources does not exceed 3 g (3000 mg) per day. You may get constipated while on this medication. Take a stool softener such as Colace twice a day while you are on it. Also add an [id number]-[id number] laxative such as senna or MiraLAX on any day that you do not have a bowel movement. If you received a narcotic pain medication or sedative while in the emergency department, do not drive for the next 24 hours. Call your doctor to arrange a follow-up appointment, make the next available a ppointment. In the interim, return anytime if worse or if new symptoms develop.
[2018-06-20 14:39] LABS: BASOPHILS # (AUTO) 0.1 10^3/uL (0.0-0.1); EOSINOPHILS # (AUTO) 0.5 10^3/uL (0.0-0.7); EOSINOPHILS % (AUTO) 6.3 %; HGB - HEMOGLOBIN 12.2 g/dL (12.0-16.0); LYMPHOCYTES # (AUTO) 2.3 10^3/uL (1.5-3.5); LYMPHOCYTES % (AUTO) 27.2 %; MEAN CORPUSCULAR HEMOGLOBIN 26.8 pg (27.0-31.0); MEAN CORPUSCULAR HGB CONC 33.2 g/dL (32.0-36.0); MEAN CORPUSCULAR VOLUME 80.7 fL (81.0-99.0); MEAN PLATELET VOLUME 7.7 fL (7.9-10.8); MONOCYTES # (AUTO) 0.4 10^3/uL (0.0-1.0); NEUTROPHILS % (AUTO) 60.5 %; PLT - PLATELET COUNT 303 10^3/uL (130-450); RED BLOOD COUNT 4.54 10^6/uL (4.20-5.40); WHITE BLOOD COUNT 8.3 x10^3/uL (4.8-10.8)
[2018-06-20 14:52] LABS: ALBUMIN 3.8 g/dL (3.2-5.5); ALBUMIN/GLOBULIN RATIO 0.9 (1.0-2.2); ALKALINE PHOSPHATASE 125 IU/L (42-121); ALT ALANINE AMINOTRANSFERASE 26 IU/L (10-60); AST ASPARTATE AMINOTRANSFERASE 30 IU/L (10-42); BILIRUBIN,TOTAL < 0.2 mg/dL (0.2-1.0); BUN - BLOOD UREA NITROGEN 16 mg/dL (6-20); CALCIUM 8.8 mg/dL (8.5-10.3); CARBON DIOXIDE - CO2 30 mmol/L (21-32); CHLORIDE 97 mmol/L (101-111); CREATININE 0.8 mg/dL (0.4-1.0); GFR - MDRD 74 (>89); GLUCOSE 132 mg/dL (70-100); LIPASE 33 U/L (22-51); SODIUM 136 mmol/L (135-145)
--- NOTE | 2018-06-20 15:36 | XRAY Report ---
Reason: back pain/fall Procedure Date: 06/20/2018 Accession Number: [id number] / [id number] Procedure: XR - Lumbar Spine 2 View CPT Code: FULL RESULT: EXAM: LUMBOSACRAL SPINE RADIOGRAPHY EXAM DATE: 06/20/2018 02:59 PM. CLINICAL HISTORY: Back pain/fall. COMPARISONS: CT 04/11/2018. TECHNIQUE: 3 views. FINDINGS: Alignment: Minimal degenerative grade 1 anterolisthesis L4 and L5 similar to prior CT. No new spondylolisthesis. No significant scoliosis. Bones: Five [id number]-[id number] lumbar vertebral bodies are present. No bone lesions suspicious for malignancy. Subtle increase in anterior height loss and anterior superior cortical angulation at the L1 level just below the superior endplate, not seen on prior CT. No other findings suspicious for interval fracture. Disks: Mild diffuse disk space narrowing and associated degenerative endplate changes greatest at L5/S1. Facets: Facet hypertrophic change greatest from L3/L4 through L5/S1 bilaterally. Sacroiliac Joints: Unremarkable. Soft Tissues: Normal. The visualized bowel gas pattern is normal. IMPRESSION: 1. Subtle anterior vertebral body height loss and mild anterior superior cortical angulation at L1, not definitely seen on prior CT from 04/11/2018. Mild endplate compression fracture could have this appearance. If indicated clinically, further assessment with MRI or CT could also be considered. 2. Spondylotic changes in the lumbar spine otherwise stable compared to prior study. RADIA
--- NOTE | 2018-06-20 15:40 | XRAY Report ---
Reason: back pain/fall Procedure Date: 06/20/2018 Accession Number: [id number] / [id number] Procedure: XR - Thoracic Spine 2 View CPT Code: FULL RESULT: EXAM: THORACIC SPINE RADIOGRAPHY EXAM DATE: 06/20/2018 02:59 PM. CLINICAL HISTORY: Back pain/fall. COMPARISON: Thoracic spine films 11/02/2010.. TECHNIQUE: 2 views. FINDINGS: Alignment: Mild increased thoracic kyphosis stable compared to prior study. No spondylolisthesis or scoliosis. Bones: No interval fractures . No Bone lesions. Disks: Mild diffuse disk space narrowing and mild degenerative endplate spurring throughout the thoracic spine. Soft Tissues: Scarring and bandlike areas of subsegmental atelectasis as well as hazy alveolar opacities in the lungs. These appear slightly increased compared to prior study. No focal mass. No pneumothorax. No pleural effusion. Heart size upper limits of normal. IMPRESSION: 1. No acute abnormality seen in the thoracic spine. Overall resolution of bony structures is somewhat limited by patient body habitus. 2. Bilateral pulmonary parenchymal scarring, bandlike areas of subsegmental atelectasis and increased hazy opacities in both lungs appear increased. Some of this may be related to low inspiratory volume. Follow-up as indicated clinically. 3. Lumbar spine evaluation dictated separately. RADIA
[2018-06-20 16:22] VITALS: BP 120/87
== END 2018-06-20 16:20 | disposition home or self-care (01) ==
LOC: ED 11:20
DX: S32.010A Wedge compression fracture of first lumbar vertebra, initial encounter for closed fracture (principal); I10 Essential (primary) hypertension; E11.9 Type 2 diabetes mellitus without complications; Z79.82 Long term (current) use of aspirin; Z79.84 Long term (current) use of oral hypoglycemic drugs; F17.200 Nicotine dependence, unspecified, uncomplicated; W17.89XA Other fall from one level to another, initial encounter; W22.8XXA Striking against or struck by other objects, initial encounter; Z91.81 History of falling; Y93.89 Activity, other specified; Y92.002 Bathroom of unspecified non-institutional (private) residence as the place of occurrence of the external cause
CPT/HCPCS: 36415; 72070; 72100; 80053; 83690; 85025; 93005; 99283; A9270

== ENCOUNTER 2018-07-25 12:16 | Inpatient (IN) | payer MEDICARE, MEDICAID ==
[2018-07-25] MEDS ORDERED: IPRATROPIUM/ALBUTEROL 3 ML NEB INH STA (13:18)
--- NOTE | 2018-07-25 13:41 | XRAY Report ---
Reason: cough Procedure Date: 07/25/2018 Accession Number: [id number] / [id number] Procedure: XR - Chest 2 View X-Ray CPT Code: 43183 FULL RESULT: EXAM: CHEST RADIOGRAPHY EXAM DATE: 07/25/2018 01:17 PM. CLINICAL HISTORY: Cough. COMPARISON: THORACIC SPINE 2 VIEW 06/20/2018 2:43 PM CHEST 2 VIEW 11/03/2017 10:48 AM. TECHNIQUE: 2 views. FINDINGS: Lungs/Pleura: There are bilateral, right greater than left lower lobe reticulonodular and interstitial densities which have increased since 11/03/2017. There are linear bandlike densities in the left upper lobe which appear unchanged. There is no consolidation or pleural effusion. Mediastinum: Heart and mediastinal contours are unremarkable. Other: None. IMPRESSION: 1. New right greater than left lower lobe reticulonodular densities suggesting patchy bronchopneumonia, bronchiolitis and/or airways inflammation without consolidative pneumonia. RADIA
[2018-07-25] MEDS ORDERED: AZITHROMYCIN 250 MG TABLET PO STA (14:14)
[2018-07-25] MEDS ORDERED: ALBUTEROL NEB 2.5 MG/3 ML INH STA (14:14)
[2018-07-25] MEDS ORDERED: DEXAMETHASONE 10 MG/ML VIAL PO STA (14:14)
--- NOTE | 2018-07-25 14:18 | ED Physician Documentation ---
History of Present Illness - Stated complaint Stated Complaint: DIFF BREATHING/WEAKNESS - Chief complaint Chief Complaint: Resp - Additonal information Additional information: hx from pt 58 y.o f hx COPD home O2 dependent several days of cough and SOA not relieved by home neb subj fever no leg swelling no GI sx minimal mylagias meds not uopdated in NN - per pt home meds list she gives me, her meds are ibuprofen 800mg clonazepam 0.5 mg gabapentin 600 mg omeprazole 20 mg potassium 10meq asa 81mg lamotrigine 100 mg lisinopril 2.5 mg estradiol 0.5mg amitryptiline 100mg aripiprazole 5mg bupropion SR 100mg prazosin 5mg hydroxyzine 50 mg duloxetine 60 mg simvastatin 20 mg metformin 500 mg furosemide 20 mg quetiapine 25 mg Review of Systems Constitutional: denies: Fever, Chills Nose: reports: Congestion Respiratory: reports: Dyspnea, Cough, Wheezing GI: denies: Vomiting, Diarrhea Musculoskeletal: denies: Extremity swelling Endocrine: denies: Easy bruising / bleeding Immunocompromised: denies: Immunocompromised PD PAST MEDICAL HISTORY - Past Medical History Past Medical History: Yes Cardiovascular: Hypertension, High cholesterol Respiratory: COPD, Emphysema, Shortness of breath, Sleep apnea, Other Endocrine/Autoimmune: Type 2 diabetes GI: GERD, Hiatal hernia 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 NURSE: Other : Incontinence, Renal insuffiency, Nocturia HEENT: Chronic vision loss Psych: Anxiety, Bipolar disorder, Post traumatic stress disorder, Claustrophobia, Other Musculoskeletal: Osteoarthritis, Fibromyalgia, Chronic back pain Derm: None - Past Surgical History Past Surgical History: Yes General: Gastric surgery Ortho: Spine surgery /NEONATAL PEDIATRIC NURSE: section, Hysterectomy, Oophrectomy - Present Medications Home Medications: Ambulatory Orders Medication Instructions Recorded Confirmed Gabapentin [Neurontin] 1,200 mg PO TID 05/03/13 11/03/17 Omeprazole 20 mg PO BID 05/03/13 11/03/17 buPROPion [Wellbutrin Sr] 200 mg PO BID 05/03/13 11/03/17 clonazePAM [Clonazepam] 1 mg PO TID PRN 05/03/13 11/03/17 Estrogens, Conjugated [Premarin] 0.625 mg PO DAILY 03/14/15 11/03/17 Furosemide 20 mg PO DAILY 03/14/15 11/03/17 Amitriptyline [Elavil] 100 mg PO QPM 01/10/16 11/03/17 Duloxetine HCl 120 mg PO DAILY 01/10/16 11/03/17 Ibuprofen 800 mg PO TID PRN 01/10/16 11/03/17 Prazosin HCl [Minipress] 10 mg PO QPM 01/10/16 11/03/17 lamoTRIgine [LaMICtal] 200 mg PO DAILY 01/10/16 11/04/17 Hydroxyzine Pamoate [Vistaril] 50 mg PO TID PRN 01/23/17 11/03/17 Potassium Chloride 10 meq PO DAILY 01/23/17 11/03/17 Simvastatin [Zocor] 20 mg PO QPM 01/23/17 11/03/17 ARIPiprazole [Abilify] 5 mg PO DAILY 11/03/17 11/03/17 Aspirin 81 mg PO DAILY 11/03/17 11/03/17 Fluticasone [Flonase] 2 sprays MARKO DAILY PRN 11/03/17 11/03/17 Lisinopril 2.5 mg PO DAILY 11/03/17 11/03/17 Metformin HCl 500 mg PO BIDWM 11/03/17 11/03/17 Quetiapine Fumarate 50 mg PO QPM 11/03/17 11/03/17 Albuterol Sulfate [Proventil Hfa 1 - 2 puffs INH Q4H PRN #1 inhaler 11/06/17 Inhaler] Fluticasone/Salmeterol [Advair Hfa 8 gm IH BID #1 hfa.aer.ad 11/06/17 230-21 Mcg Inhaler] Levofloxacin [Levaquin] 750 mg PO DAILY 7 Days #7 tablet 11/06/17 Nicotine 21 mg Patch [Nicoderm] 1 patch TOP DAILY #14 patch 11/06/17 Saccharomyces Boulardii [Florastor] 250 mg PO BID 14 Days #28 capsule 11/06/17 guaiFENesin [Mucinex] 600 mg PO BID #30 tablet 11/06/17 predniSONE [Prednisone] 10 mg PO DAILY 6 Days #18 tab.ds.pk 11/06/17 Metronidazole [Flagyl] 500 mg PO Q8HR #20 tablet 03/01/18 oxyCODONE/ACET 5/325 [Percocet 5 1 - 2 each PO Q6H PRN #14 tablet 03/01/18 mg/325 mg] Naproxen 375 mg PO BID #20 tablet 04/11/18 Oxycodone HCl/Acetaminophen 1 each PO Q6H PRN #15 tablet 04/11/18 [Percocet 5-325 mg Tablet] HYDROcod/ACETAM 5/325 [[place] 5/325] 1 - 2 ea PO Q6H PRN #7 tablet 04/23/18 Hydrocodone/Acetaminophen 1 - 2 each PO Q6H PRN #20 tablet 06/20/18 [Hydrocodon-Acetaminophen 5-325] Azithromycin [Zithromax] 250 mg PO DAILY #6 tablet 07/25/18 predniSONE [Deltasone] 60 mg PO DAILY 5 Days tablet 07/25/18 - Allergies Allergies/Adverse Reactions: Allergies Allergy/AdvReac Type Severity Reaction Status Date / Time Sulfa (Sulfonamide Allergy oral Verified 07/25/18 12:23 Antibiotics) blisters - Social History Does the pt smoke?: Yes Smoking Status: Current every day smoker Does the pt drink ETOH?: No Does the pt have substance abuse?: Yes - Immunizations Immunizations are current?: Yes Immunizations: TDAP current <10years - POLST Patient has POLST: No POLST Status: Full Code PD ED PE NORMAL - Vitals Vital signs reviewed: Yes - Neck Neck: Supple, no meningeal sign - Cardiac Cardiac: RRR - Respiratory Respiratory: Other (ronchi to bases) - Abdomen Abdomen: Soft, Non tender - Derm Derm: Normal color - Extremities Extremities: No edema, No calf tenderness / cord - Neuro Neuro: Alert and oriented X 3 Results - Vitals Vitals: Vital Signs - 24 hr 07/25/18 07/25/18 07/25/18 12:18 13:10 13:30 Temperature 36.8 C Heart Rate 86 83 79 Respiratory 22 20 20 Rate Blood Pressure 91/69 109/66 103/63 O2 Saturation 94 85 L 92 07/25/18 07/25/18 07/25/18 14:00 14:30 14:43 Temperature Heart Rate 81 80 79 Respiratory 20 20 18 Rate Blood Pressure 110/67 106/63 O2 Saturation 91 L 91 L 07/25/18 07/25/18 07/25/18 15:00 15:40 16:30 Temperature Heart Rate 80 80 80 Respiratory 20 20 20 Rate Blood Pressure 94/51 L 94/57 L 112/72 O2 Saturation 91 L 92 91 L 07/25/18 07/25/18 17:05 17:30 Temperature Heart Rate 89 80 Respiratory 20 20 Rate Blood Pressure 137/68 H 130/69 O2 Saturation 92 91 L Oxygen O2 Source [With Activity] Nasal cannula O2 Source Nasal cannula - EKG (time done) 1249 Rate: Rate (enter#) (82) Rhythm: NSR Intervals: Normal MI QRS: Normal Ischemia: Normal ST segments (+) - Labs Labs: Laboratory Tests 07/25/18 07/25/18 07/25/18 16:00 16:00 16:00 WBC 10.7 RBC 3.78 L Hgb 10.0 L Hct 30.1 L MCV 79.6 L MCH 26.5 L MCHC 33.3 RDW 16.1 H Plt Count 287 MPV 7.5 L Neut # (Auto) 8.4 H Lymph # (Auto) 1.3 L [place] # (Auto) 0.4 Eos # (Auto) 0.4 Baso # (Auto) 0.1 Absolute Nucleated RBC 0.00 Nucleated RBC % 0.0 Sodium 134 L Potassium 3.6 Chloride 98 L Carbon Dioxide 27 Anion Gap 9.0 BUN 6 Creatinine 0.5 Estimated GFR (MDRD) 127 Glucose 163 H Lactic Acid 1.0 Calcium 8.3 L - Rads (name of study) CXR Radiology: See rad report (new R > L lower lobe retuiculonodular densities c/w bronchopna) PD MEDICAL DECISION MAKING - ED course ED course: planned to dc but now pt is hypotensive 1st BP was low - then all subsquent on tele were fine now at time of dc again SBP only 94 also sats low 90s even on her usual NC O2 ordered labs and will admit Departure - Departure Disposition: 66 [facility] DC/Xfer Clinical Impression: Pneumonia Qualifiers: Pneumonia type: due to unspecified organism Laterality: bilateral Lung location: lower lobe of lung Qualified Code(s): J18.1 - Lobar pneumonia, unspecified organism Condition: Good Instructions: ED Pneumonia Adult Follow-Up: Jerry Beaulieu MD [Primary Care Provider] - Prescriptions: Azithromycin [Zithromax] 250 mg PO DAILY #6 tablet predniSONE [Deltasone] 60 mg PO DAILY 5 Days tablet Comments: Do not take your hydroxyzine while on the zithromax Take the antibiotics for another 4 days and the steroids for 5 days Use your nebulizer every 4 hr for the next three days then as needed Wear your home oxygen as before Follow up with your PMD for recheck in the next 2 days Return if worse
[2018-07-25] MEDS ORDERED: CHERRY SYRUP 10 ML UDC PO ONE (14:30)
[2018-07-25] MEDS ORDERED: SODIUM CHLORIDE 0.9% 1,000 ML IV ONE (15:47)
[2018-07-25 16:08] LABS: BASOPHILS # (AUTO) 0.1 10^3/uL (0.0-0.1); BASOPHILS % (AUTO) 0.8 %; EOSINOPHILS # (AUTO) 0.4 10^3/uL (0.0-0.7); EOSINOPHILS % (AUTO) 3.7 %; LYMPHOCYTES # (AUTO) 1.3 10^3/uL (1.5-3.5); LYMPHOCYTES % (AUTO) 12.6 %; MEAN CORPUSCULAR HEMOGLOBIN 26.5 pg (27.0-31.0); MEAN CORPUSCULAR HGB CONC 33.3 g/dL (32.0-36.0); MEAN CORPUSCULAR VOLUME 79.6 fL (81.0-99.0); MEAN PLATELET VOLUME 7.5 fL (7.9-10.8); MONOCYTES # (AUTO) 0.4 10^3/uL (0.0-1.0); MONOCYTES % (AUTO) 3.8 %; NEUTROPHILS # (AUTO) 8.4 10^3/uL (1.5-6.6); NEUTROPHILS % (AUTO) 79.1 %; PLT - PLATELET COUNT 287 10^3/uL (130-450); RED BLOOD COUNT 3.78 10^6/uL (4.20-5.40); RED CELL DISTRIBUTION WIDTH 16.1 % (12.0-15.0); WHITE BLOOD COUNT 10.7 x10^3/uL (4.8-10.8)
[2018-07-25 16:21] LABS: CALCIUM 8.3 mg/dL (8.5-10.3); CREATININE 0.5 mg/dL (0.4-1.0)
[2018-07-25] MEDS ORDERED: ACETAMINOPHEN 325 MG TABLET PO PRN (18:03)
[2018-07-25] MEDS ORDERED: ONDANSETRON 4 MG/2 ML VIAL IVP PRN (18:03)
[2018-07-25] MEDS ORDERED: ZOLPIDEM 5 MG TABLET PO PRN (18:03)
[2018-07-25] MEDS ORDERED: SODIUM CHLORIDE FLUSH 0.9% 10 ML SYRINGE IVP PRN (18:03)
[2018-07-25] MEDS ORDERED: IPRATROPIUM/ALBUTEROL 3 ML NEB INH PRN (18:12)
[2018-07-25] MEDS ORDERED: ALBUTEROL NEB 2.5 MG/3 ML INH PRN (18:13)
[2018-07-25] MEDS ORDERED: CLONAZEPAM 1 MG PO PRN (18:13)
[2018-07-25] MEDS ORDERED: HYDROcod/ACET 5/325 Prepack 4 PO PRN (18:13)
[2018-07-25 19:24] LABS: HB2 TOTAL 10.3 g/dL; HEMOGLOBIN A1C 0.43 g/dL
[2018-07-25] MEDS: SODIUM CHLORIDE 0.9% 1,000 ML IV SCH (20:07)
[2018-07-25] MEDS ORDERED: IBUPROFEN 800 MG TABLET PO PRN (20:39)
[2018-07-25] MEDS: guaiFENesin 600 MG TABLET PO SCH (21:11)
[2018-07-25] MEDS: FAMOTIDINE 20 MG TABLET PO SCH (21:11)
[2018-07-25] MEDS: INSULIN ASPART 300 UNIT/3 ML PEN SUBQ SCH (21:11)
[2018-07-25] MEDS: cefTRIAXone 1 GM in SODIUM CHLORIDE 0.9% MINIBAG 100 ML IV SCH (22:09)
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
[2018-07-26] MEDS: AMITRIPTYLINE 25 MG TABLET PO SCH ×2 (01:29→22:18)
[2018-07-26] MEDS: SODIUM CHLORIDE FLUSH 0.9% 10 ML SYRINGE IVP SCH ×3 (05:55→16:46)
[2018-07-26] MEDS: SODIUM CHLORIDE 0.9% 1,000 ML IV SCH ×2 (06:01→17:36)
[2018-07-26] MEDS: GABAPENTIN 400 MG CAPSULE PO SCH ×2 (06:02→13:21)
[2018-07-26 06:27] LABS: BASOPHILS # (AUTO) 0.1 10^3/uL (0.0-0.1); BASOPHILS % (AUTO) 0.9 %; EOSINOPHILS # (AUTO) 0.1 10^3/uL (0.0-0.7); EOSINOPHILS % (AUTO) 0.5 %; HGB - HEMOGLOBIN 9.6 g/dL (12.0-16.0); LYMPHOCYTES # (AUTO) 1.5 10^3/uL (1.5-3.5); LYMPHOCYTES % (AUTO) 15.1 %; MEAN CORPUSCULAR HEMOGLOBIN 26.6 pg (27.0-31.0); MEAN CORPUSCULAR HGB CONC 32.3 g/dL (32.0-36.0); MEAN CORPUSCULAR VOLUME 82.5 fL (81.0-99.0); MEAN PLATELET VOLUME 7.9 fL (7.9-10.8); MONOCYTES # (AUTO) 0.4 10^3/uL (0.0-1.0); MONOCYTES % (AUTO) 3.7 %; NEUTROPHILS # (AUTO) 8.2 10^3/uL (1.5-6.6); NEUTROPHILS % (AUTO) 79.8 %; PLT - PLATELET COUNT 267 10^3/uL (130-450); RED BLOOD COUNT 3.62 10^6/uL (4.20-5.40); RED CELL DISTRIBUTION WIDTH 16.3 % (12.0-15.0); WHITE BLOOD COUNT 10.3 x10^3/uL (4.8-10.8)
[2018-07-26 06:44] LABS: ALBUMIN/GLOBULIN RATIO 0.9 (1.0-2.2); BILIRUBIN,TOTAL 0.5 mg/dL (0.2-1.0); CALCIUM 8.1 mg/dL (8.5-10.3); CREATININE 0.5 mg/dL (0.4-1.0); MAGNESIUM 2.2 mg/dL (1.7-2.8); TOTAL PROTEIN 6.5 g/dL (6.7-8.2)
[2018-07-26] MEDS: INSULIN ASPART 300 UNIT/3 ML PEN SUBQ SCH ×4 (07:38→22:18)
[2018-07-26] MEDS: AZITHROMYCIN INJ 500 MG in SODIUM CHLORIDE 0.9% 250 ML IV SCH (08:38)
[2018-07-26] MEDS: buPROPion SR 100 MG TABLET PO SCH ×2 (08:42→22:19)
[2018-07-26] MEDS: DULoxetine 30 MG CAPSULE PO SCH (08:42)
[2018-07-26] MEDS: predniSONE 20 MG TABLET PO SCH (08:43)
[2018-07-26] MEDS: LISINOPRIL 5 MG TABLET PO SCH (08:43)
[2018-07-26] MEDS: FAMOTIDINE 20 MG TABLET PO SCH ×2 (08:43→22:19)
[2018-07-26] MEDS: lamoTRIgine 100 MG TABLET PO SCH ×2 (08:44→08:57)
[2018-07-26] MEDS: NICOTINE 21 MG PATCH TOP SCH (08:44)
[2018-07-26] MEDS: ENOXAPARIN 40 MG/0.4 ML SYRINGE SUBQ SCH (08:44)
[2018-07-26] MEDS: POLYETHYLENE GLYCOL 3350 17 GM PACKET PO SCH (08:44)
[2018-07-26] MEDS: guaiFENesin 600 MG TABLET PO SCH (08:46)
[2018-07-26] MEDS: clonazePAM 0.5 MG TABLET PO PRN (08:48)
[2018-07-26] MEDS ORDERED: cefTRIAXone 1 GM VIAL IVP SCH (09:00)
[2018-07-26] MEDS ORDERED: LOSARTAN 50 MG TABLET PO SCH (09:00)
[2018-07-26] MEDS ORDERED: LISINOPRIL 20 MG TABLET PO SCH (09:00)
[2018-07-26] MEDS ORDERED: ARIPiprazole 5 MG TABLET PO SCH (09:00)
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
[2018-07-26] MEDS ORDERED: FLUTICASONE NASAL SPRAY NAS PRN (15:23)
[2018-07-26] MEDS ORDERED: IBUPROFEN 800 MG TABLET PO PRN (15:23)
[2018-07-26] MEDS ORDERED: hydrOXYzine PAMOATE 25 MG CAPSULE PO PRN (15:23)
[2018-07-26] MEDS ORDERED: PHENOL THROAT SPRAY 177 ML MM PRN (15:50)
[2018-07-26] MEDS: BENZOCAINE/MENTHOL LOZENGE MM PRN (16:44)
[2018-07-26] MEDS: BENZONATATE 100 MG CAPSULE PO PRN (16:44)
[2018-07-26] MEDS ORDERED: CLONAZEPAM 1 MG PO PRN (18:55)
[2018-07-26] MEDS ORDERED: LEVALBUTEROL 1.25 MG/3 ML NEB INH PRN (18:58)
[2018-07-26] MEDS: guaiFENesin/CODEINE 5 ML UDC PO PRN (19:18)
[2018-07-26] MEDS ORDERED: NON FORMULARY MED (Amitriptyline Hcl [Amitriptyline Hcl] 100 MG) PO SCH (21:00)
[2018-07-26] MEDS ORDERED: QUEtiapine 25 MG TABLET PO SCH (21:00)
[2018-07-26] MEDS ORDERED: NORTRIPTYLINE 25 MG CAPSULE PO SCH (21:00)
[2018-07-26] MEDS ORDERED: DULoxetine 30 MG CAPSULE PO SCH (21:00)
[2018-07-26] MEDS: LEVALBUTEROL 1.25 MG/3 ML NEB INH SCH (22:06)
[2018-07-26] MEDS: GABAPENTIN 300 MG CAPSULE PO SCH (22:17)
[2018-07-26] MEDS: QUEtiapine 25 MG TABLET PO SCH (22:18)
[2018-07-26] MEDS: cefTRIAXone 1 GM in SODIUM CHLORIDE 0.9% MINIBAG 100 ML IV SCH (22:19)
[2018-07-26] MEDS: HYDROcod/ACETAM 5/325 MG TABLET PO PRN (22:30)
[2018-07-27] MEDS: SODIUM CHLORIDE FLUSH 0.9% 10 ML SYRINGE IVP SCH ×3 (02:45→16:59)
[2018-07-27] MEDS: SODIUM CHLORIDE 0.9% 1,000 ML IV SCH (04:10)
[2018-07-27] MEDS: GABAPENTIN 300 MG CAPSULE PO SCH ×3 (06:13→21:43)
[2018-07-27] MEDS: guaiFENesin/CODEINE 5 ML UDC PO PRN (06:13)
[2018-07-27 06:24] LABS: BASOPHILS # (AUTO) 0.1 10^3/uL (0.0-0.1); EOSINOPHILS # (AUTO) 0.1 10^3/uL (0.0-0.7); EOSINOPHILS % (AUTO) 1.2 %; HGB - HEMOGLOBIN 9.8 g/dL (12.0-16.0); LYMPHOCYTES # (AUTO) 3.1 10^3/uL (1.5-3.5); MEAN CORPUSCULAR HEMOGLOBIN 26.5 pg (27.0-31.0); MEAN CORPUSCULAR HGB CONC 32.7 g/dL (32.0-36.0); MEAN PLATELET VOLUME 7.5 fL (7.9-10.8); MONOCYTES # (AUTO) 0.4 10^3/uL (0.0-1.0); MONOCYTES % (AUTO) 4.3 %; NEUTROPHILS # (AUTO) 6.5 10^3/uL (1.5-6.6); NEUTROPHILS % (AUTO) 63.5 %; PLT - PLATELET COUNT 300 10^3/uL (130-450); RED BLOOD COUNT 3.69 10^6/uL (4.20-5.40); RED CELL DISTRIBUTION WIDTH 16.5 % (12.0-15.0); WHITE BLOOD COUNT 10.2 x10^3/uL (4.8-10.8)
[2018-07-27 06:40] LABS: ALBUMIN 2.9 g/dL (3.2-5.5); ALBUMIN/GLOBULIN RATIO 0.8 (1.0-2.2); BILIRUBIN,TOTAL 0.3 mg/dL (0.2-1.0); CALCIUM 8.1 mg/dL (8.5-10.3); CREATININE 0.5 mg/dL (0.4-1.0); TOTAL PROTEIN 6.4 g/dL (6.7-8.2)
[2018-07-27] MEDS: INSULIN ASPART 300 UNIT/3 ML PEN SUBQ SCH ×4 (07:31→20:21)
[2018-07-27] MEDS: LEVALBUTEROL 1.25 MG/3 ML NEB INH SCH ×3 (07:38→21:06)
[2018-07-27] MEDS: AZITHROMYCIN INJ 500 MG in SODIUM CHLORIDE 0.9% 250 ML IV SCH (08:30)
[2018-07-27] MEDS: POLYETHYLENE GLYCOL 3350 17 GM PACKET PO SCH (08:34)
[2018-07-27] MEDS: FAMOTIDINE 20 MG TABLET PO SCH ×2 (08:34→20:18)
[2018-07-27] MEDS: ASPIRIN CHEW 81 MG TABLET PO SCH (08:35)
[2018-07-27] MEDS: buPROPion SR 100 MG TABLET PO SCH ×2 (08:35→20:18)
[2018-07-27] MEDS: ARIPiprazole 5 MG TABLET PO SCH ×2 (08:35→08:49)
[2018-07-27] MEDS: ENOXAPARIN 40 MG/0.4 ML SYRINGE SUBQ SCH (08:36)
[2018-07-27] MEDS: DULoxetine 30 MG CAPSULE PO SCH (08:36)
[2018-07-27] MEDS: LISINOPRIL 5 MG TABLET PO SCH (08:36)
[2018-07-27] MEDS: predniSONE 20 MG TABLET PO SCH (08:36)
[2018-07-27] MEDS: NICOTINE 21 MG PATCH TOP SCH (08:37)
[2018-07-27] MEDS: lamoTRIgine 100 MG TABLET PO SCH (13:31)
[2018-07-27] MEDS: clonazePAM 0.5 MG TABLET PO PRN (13:33)
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
[2018-07-27] MEDS: SPIRONOLACTONE 25 MG TABLET PO SCH (16:59)
[2018-07-27] MEDS: AMITRIPTYLINE 25 MG TABLET PO SCH (20:18)
[2018-07-27] MEDS: QUEtiapine 25 MG TABLET PO SCH (20:18)
[2018-07-27] MEDS: HYDROcod/ACETAM 5/325 MG TABLET PO PRN (20:27)
[2018-07-27] MEDS: cefTRIAXone 1 GM in SODIUM CHLORIDE 0.9% MINIBAG 100 ML IV SCH (21:43)
[2018-07-28] MEDS: SODIUM CHLORIDE FLUSH 0.9% 10 ML SYRINGE IVP SCH (00:32)
[2018-07-28] MEDS: GABAPENTIN 300 MG CAPSULE PO SCH ×2 (05:11→13:13)
[2018-07-28] MEDS: HYDROcod/ACETAM 5/325 MG TABLET PO PRN ×2 (05:15→13:13)
[2018-07-28 05:39] LABS: BASOPHILS # (AUTO) 0.1 10^3/uL (0.0-0.1); BASOPHILS % (AUTO) 1.4 %; EOSINOPHILS # (AUTO) 0.2 10^3/uL (0.0-0.7); EOSINOPHILS % (AUTO) 2.4 %; HGB - HEMOGLOBIN 9.3 g/dL (12.0-16.0); LYMPHOCYTES # (AUTO) 3.1 10^3/uL (1.5-3.5); LYMPHOCYTES % (AUTO) 37.2 %; MEAN CORPUSCULAR HEMOGLOBIN 26.3 pg (27.0-31.0); MEAN CORPUSCULAR HGB CONC 32.2 g/dL (32.0-36.0); MEAN CORPUSCULAR VOLUME 81.5 fL (81.0-99.0); MEAN PLATELET VOLUME 7.5 fL (7.9-10.8); MONOCYTES # (AUTO) 0.5 10^3/uL (0.0-1.0); MONOCYTES % (AUTO) 6.3 %; NEUTROPHILS # (AUTO) 4.4 10^3/uL (1.5-6.6); NEUTROPHILS % (AUTO) 52.7 %; PLT - PLATELET COUNT 276 10^3/uL (130-450); RED BLOOD COUNT 3.53 10^6/uL (4.20-5.40); RED CELL DISTRIBUTION WIDTH 16.6 % (12.0-15.0); WHITE BLOOD COUNT 8.3 x10^3/uL (4.8-10.8)
[2018-07-28 05:53] LABS: ALBUMIN 2.8 g/dL (3.2-5.5); ALBUMIN/GLOBULIN RATIO 0.8 (1.0-2.2); ALKALINE PHOSPHATASE 97 IU/L (42-121); ALT ALANINE AMINOTRANSFERASE 19 IU/L (10-60); AST ASPARTATE AMINOTRANSFERASE 20 IU/L (10-42); BILIRUBIN,TOTAL < 0.2 mg/dL (0.2-1.0); BUN - BLOOD UREA NITROGEN 10 mg/dL (6-20); CARBON DIOXIDE - CO2 26 mmol/L (21-32); CHLORIDE 104 mmol/L (101-111); CREATININE 0.6 mg/dL (0.4-1.0); GFR - MDRD 103 (>89); GLUCOSE 92 mg/dL (70-100); SODIUM 137 mmol/L (135-145); TOTAL PROTEIN 6.4 g/dL (6.7-8.2)
[2018-07-28] MEDS: BENZONATATE 100 MG CAPSULE PO PRN (07:33)
[2018-07-28] MEDS: BENZOCAINE/MENTHOL LOZENGE MM PRN (07:33)
[2018-07-28] MEDS: guaiFENesin/CODEINE 5 ML UDC PO PRN (07:33)
[2018-07-28] MEDS: LEVALBUTEROL 1.25 MG/3 ML NEB INH SCH (07:38)
[2018-07-28] MEDS ORDERED: predniSONE 20 MG TABLET PO SCH (08:00)
[2018-07-28] MEDS: ASPIRIN CHEW 81 MG TABLET PO SCH (08:53)
[2018-07-28] MEDS: FAMOTIDINE 20 MG TABLET PO SCH (08:54)
[2018-07-28] MEDS: DULoxetine 30 MG CAPSULE PO SCH (08:56)
[2018-07-28] MEDS: buPROPion SR 100 MG TABLET PO SCH (08:58)
[2018-07-28] MEDS: NICOTINE 21 MG PATCH TOP SCH (09:01)
[2018-07-28] MEDS: LISINOPRIL 5 MG TABLET PO SCH (09:03)
[2018-07-28] MEDS: ARIPiprazole 5 MG TABLET PO SCH (09:04)
[2018-07-28] MEDS: SPIRONOLACTONE 25 MG TABLET PO SCH (09:05)
[2018-07-28] MEDS: ENOXAPARIN 40 MG/0.4 ML SYRINGE SUBQ SCH (09:07)
[2018-07-28] MEDS: POLYETHYLENE GLYCOL 3350 17 GM PACKET PO SCH (09:16)
[2018-07-28 10:30] VITALS: BP 140/73
--- NOTE | 2018-07-28 11:41 | Discharge Plan ---
Discharge Plan Disposition: 01 Home, Self Care Condition: Good Prescriptions: guaiFENesin/CODEINE [Robitussin AC] 5 ml PO Q6HR PRN #20 udc PRN Reason: Cough Benzonatate [Tessalon] 100 mg PO TID PRN #30 capsule PRN Reason: Cough Budesonide/Formoterol Fumarate [Symbicort 160-4.5 Mcg Inhaler] 10.2 gm IH BID #1 hfa.aer.ad Furosemide 20 mg PO MOWEFR #12 tablet Gabapentin [Neurontin] 600 mg PO TID #90 tablet Ibuprofen 600 mg PO TID PRN #30 tablet PRN Reason: Pain Levalbuterol [Xopenex] 1.25 mg INH Q4H PRN #120 neb PRN Reason: Shortness Of Air/Wheezing levoFLOXacin [Levofloxacin] 500 mg PO DAILY 5 Days #5 tablet Nebulizer and Compressor [Innospire Deluxe [place] Neb] 1 each MC QID PRN #1 ea ch PRN Reason: Wheezing Nicotine 14 mg Patch [Nicoderm] 1 each TOP Q24H #7 patch Nicotine 21 mg Patch [Nicoderm] 1 patch TOP DAILY #7 patch Nicotine 7 mg Patch [Nicoderm] 1 each TOP Q24H #7 patch Prednisone 10 mg PO DAILY #5 tab.[id number].pk Spironolactone [Aldactone] 12.5 mg PO BIDWM #30 tablet Diet: Regular Activity Restrictions: No Restrictions Shower Restrictions: No Driving Restrictions: Yes Assistance Devices: Walker (4-wheel walker) Weight Bearing: Full Weight Instruction Topics: ED Pneumonia Adult Additional Instructions or Follow Up instructions: You were admitted with COPD exacerbation and treated with IV antibiotics, oral steroids, and nebulizer treatments. You should continue the antibiotics and steroids for the next few days. An echocardiogram was done, which shows evidence of right sided heart pressure that is elevated. The treatment for this is a gentle diuretic called Spironolactone, which you were started on while in the hospital. Please only take your lasix on Wednesday, Wednesday, and Fridays. STOP the potassium because Spironolactone will allow your body to hold onto potassium. You should take a daily steroid inhaler to keep your airway open, and a rescue inhaler as needed, which I have sent to your pharmacy. Also, a new nebulizer unit if needed. Wear your home oxygen as before, and avoid smoking. I have given you a small course of a cough suppressant. You have good kidney function, but taking very high doses of the Gabapentin and/or Ibuprofen may harm your kidneys overtime. I suggest cutting this dose in half to just 600mg 3 times daily. Follow up with your primary care provider within one week. No Smoking: If you smoke, Please STOP! Call for help. Follow-up with: Jerry Beaulieu MD [Primary Care Provider] -
[2018-07-28] MEDS: INSULIN ASPART 300 UNIT/3 ML PEN SUBQ SCH (11:50)
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
[2018-07-28] MEDS: lamoTRIgine 100 MG TABLET PO SCH (13:13)
== END 2018-07-28 14:40 | disposition home or self-care (01) | DRG 191 ==
LOC: ED 12:16 → MS2 18:03
PROVIDERS: ADMIT Internal Medicine; ATTEND Nurse Practitioner
DX: J18.1 Lobar pneumonia, unspecified organism (principal); I95.9 Hypotension, unspecified; J43.9 Emphysema, unspecified; E87.1 Hypo-osmolality and hyponatremia; I10 Essential (primary) hypertension; G47.30 Sleep apnea, unspecified; E11.9 Type 2 diabetes mellitus without complications; F31.30 Bipolar disorder, current episode depressed, mild or moderate severity, unspecified; R09.02 Hypoxemia; I11.9 Hypertensive heart disease without heart failure; F17.200 Nicotine dependence, unspecified, uncomplicated; I27.20 Pulmonary hypertension, unspecified; E11.42 Type 2 diabetes mellitus with diabetic polyneuropathy; F17.210 Nicotine dependence, cigarettes, uncomplicated; E78.5 Hyperlipidemia, unspecified; E66.9 Obesity, unspecified; G47.33 Obstructive sleep apnea (adult) (pediatric); F43.10 Post-traumatic stress disorder, unspecified; F41.9 Anxiety disorder, unspecified; M47.9 Spondylosis, unspecified; G89.29 Other chronic pain; E11.65 Type 2 diabetes mellitus with hyperglycemia; K21.9 Gastro-esophageal reflux disease without esophagitis; Z62.810 Personal history of physical and sexual abuse in childhood; Z79.899 Other long term (current) drug therapy; Z68.35 Body mass index [BMI] 35.0-35.9, adult; Z91.19 Patient's noncompliance with other medical treatment and regimen; Z91.5 Personal history of self-harm; Z99.81 Dependence on supplemental oxygen; Z79.82 Long term (current) use of aspirin; Z79.84 Long term (current) use of oral hypoglycemic drugs; Z79.51 Long term (current) use of inhaled steroids
CPT/HCPCS: 36415; 71046; 80048; 80053; 83036; 83605; 83735; 85025; 87040; 93005; 93306; 94640; 99284

== ENCOUNTER 2018-09-19 09:11 | Emergency (ER) | payer MEDICARE, MEDICAID ==
--- NOTE | 2018-09-19 11:56 | XRAY Report ---
Reason: fall pain Procedure Date: 09/19/2018 Accession Number: [id number] / [id number] Procedure: XR - Ribs w/PA Chest RT CPT Code: FULL RESULT: EXAM: RIGHT RIB RADIOGRAPHY EXAM DATE: 09/19/2018 10:34 AM. CLINICAL HISTORY: Fall, pain. COMPARISON: CHEST 2 VIEW 07/25/2018 12:52 PM. CHEST 2 VIEW 11/03/2017 10:48 AM. CHEST 2 VIEW PA/LAT 01/13/2016 2:57 PM. TECHNIQUE: 1 view of the chest and 2 views of the ribs. FINDINGS: Bones: Minimally displaced fractures of the anterior right seventh and eighth ribs are noted on the oblique views. No additional fracture appreciated. Lungs: Stable subsegmental horizontal and vertical opacities in the left mid and lower lung consistent with parenchymal scarring. No confluent airspace opacities. No effusion or extra ventilatory air. Mediastinum: Heart and mediastinal contours are unremarkable. Other: None. IMPRESSION: Minimally displaced anterior right seventh and eighth rib fractures noted on the oblique view. RADIA
--- NOTE | 2018-09-19 11:58 | XRAY Report ---
Reason: fall pain Procedure Date: 09/19/2018 Accession Number: [id number] / [id number] Procedure: XR - Shoulder 3 View RT CPT Code: FULL RESULT: EXAM: RIGHT SHOULDER RADIOGRAPHY EXAM DATE: 09/19/2018 10:42 AM. CLINICAL HISTORY: Fall pain. COMPARISON: No comparison right shoulder series. TECHNIQUE: 3 views. FINDINGS: Bones: Normal. No fracture or bone lesion. Joints: The glenohumeral and acromioclavicular joints are normal. Soft tissues: The visualized hemithorax is unremarkable. No soft tissue swelling. IMPRESSION: Normal shoulder radiography. RADIA
--- NOTE | 2018-09-19 11:59 | XRAY Report ---
Reason: fall pain Procedure Date: 09/19/2018 Accession Number: [id number] / [id number] Procedure: XR - Hip w/Pelvis 2-3V RT CPT Code: FULL RESULT: EXAM: RIGHT HIP AND PELVIS RADIOGRAPHY EXAM DATE: 09/19/2018 10:52 AM. HISTORY: Fall pain. COMPARISONS: HIP 2 VIEW LT 08/27/2015 2:18 PM. TECHNIQUE: 1 view of the pelvis and 1 view of the hip. FINDINGS: Bones: Normal. No fracture or bone lesion. Joints: The bilateral hip, pubis symphysis, and sacroiliac joints are preserved. Soft Tissues: Normal. No soft tissue swelling. IMPRESSION: Normal pelvis and hip radiography. RADIA
--- NOTE | 2018-09-19 12:56 | ED Physician Documentation ---
History of Present Illness - Stated complaint Stated Complaint: GLF/SIDE PX - Chief complaint Chief Complaint: General - History obtained from History obtained from: Patient - History of Present Illness Timing: Prior to arrival Pain level max: 10 Pain level now: 10 Quality: Sharp Radiates to: No Improved by: Rest Worsened by: Moving Associated symptoms: Nothing - Treatment prior to arrival Treatment prior to arrival: Ibuprofen - Additonal information Additional information: 58-year-old female with history of diabetes, hypertension, COPD here with complaint of ground-level fall last Wednesday or 2 days ago. Patient stated she usually uses a walker but decided to use a cane while she was trying to carry a garbage can. She stated she lost her balance and fell on her right side. States she is able to walk however her right hip, right shoulder, and right ribs are hurting her. Review of Systems Ten Systems: 10 systems reviewed and negative Constitutional: denies: Fever Cardiac: denies: Chest pain / pressure Respiratory: denies: Dyspnea GI: denies: Abdominal Pain Musculoskeletal: reports: Extremity pain. denies: Neck pain, Back pain Neurologic: denies: Generalized weakness, Focal weakness, Numbness PD PAST MEDICAL HISTORY - Past Medical History Past Medical History: Yes Cardiovascular: Hypertension, High cholesterol Respiratory: COPD, Emphysema, Shortness of breath, Sleep apnea, Other Endocrine/Autoimmune: Type 2 diabetes GI: GERD, Hiatal hernia SECURITY PROFESSIONAL: Other : Incontinence, Renal insuffiency, Nocturia HEENT: Chronic vision loss Psych: Anxiety, Bipolar disorder, Post traumatic stress disorder, Claustrophobia, Other Musculoskeletal: Osteoarthritis, Fibromyalgia, Chronic back pain Derm: None - Past Surgical History Past Surgical History: Yes General: Gastric surgery Ortho: Spine surgery /SECURITY PROFESSIONAL: section, Hysterectomy, Oophrectomy - Present Medications Home Medications: Ambulatory Orders Medication Instructions Recorded Confirmed Omeprazole 20 mg PO BIDAC 05/03/13 07/26/18 buPROPion [Wellbutrin Sr] 200 mg PO BID 05/03/13 07/26/18 Duloxetine HCl 120 mg PO DAILY 01/10/16 07/26/18 Prazosin HCl [Minipress] 10 mg PO QPM 01/10/16 07/26/18 lamoTRIgine [LaMICtal] 200 mg PO DAILY 01/10/16 07/26/18 Hydroxyzine Pamoate [Vistaril] 50 mg PO TID PRN 01/23/17 07/26/18 Simvastatin [Zocor] 20 mg PO QPM 01/23/17 07/26/18 Aspirin 81 mg PO DAILY 11/03/17 07/26/18 Fluticasone [Flonase] 2 sprays MARKO DAILY PRN 11/03/17 07/26/18 Lisinopril 2.5 mg PO DAILY 11/03/17 07/26/18 Metformin HCl 500 mg PO BIDWM 11/03/17 07/26/18 ARIPiprazole [Aripiprazole] 2 mg PO DAILY 07/26/18 07/26/18 Amitriptyline HCl 100 mg PO QPM 07/26/18 07/26/18 Estradiol 0.5 mg PO DAILY 07/26/18 07/26/18 QUEtiapine [SEROquel] 25 mg PO QPM 07/26/18 07/26/18 clonazePAM [Clonazepam] 1 mg PO BID PRN 07/26/18 07/26/18 Furosemide 20 mg PO MOWEFR #12 tablet 07/28/18 Gabapentin [Neurontin] 600 mg PO TID #90 tablet 07/28/18 Ibuprofen 600 mg PO TID PRN #30 tablet 07/28/18 Spironolactone [Aldactone] 12.5 mg PO BIDWM #30 tablet 07/28/18 Hydrocodone/Acetaminophen 1 - 2 each PO Q6H PRN #14 tablet 09/19/18 [Hydrocodon-Acetaminophen 5-325] - Allergies Allergies/Adverse Reactions: Allergies Allergy/AdvReac Type Severity Reaction Status Date / Time Sulfa (Sulfonamide Allergy oral Verified 07/25/18 12:23 Antibiotics) blisters - Social History Does the pt smoke?: Yes Smoking Status: Current every day smoker Does the pt drink ETOH?: No Does the pt have substance abuse?: Yes - Immunizations Immunizations are current?: Yes Immunizations: TDAP current <10years - POLST Patient has POLST: No POLST Status: Full Code PD ED PE NORMAL - Vitals Vital signs reviewed: Yes - General General: Alert and oriented X 3, No acute distress, Well developed/nourished - HEENT HEENT: Moist mucous membranes - Neck Neck: Supple, no meningeal sign, No bony TTP - Cardiac Cardiac: RRR, No murmur - Respiratory Respiratory: No respiratory distress, Clear bilaterally - Abdomen Abdomen: Normal bowel sounds, Soft, Non tender, Non distended - Back Back: No spinal TTP - Derm Derm: Normal color, Warm and dry - Extremities Extremities: No deformity, Other (Mild tenderness when palpating right shoulder. Bilateral shoulders with limited range of motion related to her chronic shoulder issues. Bilateral lower extremity with full range of motion. Mild tenderness to palpation of her right hip. No leg shortening. Neurovascularly intact in all extremities.) - Neuro Neuro: Alert and oriented X 3, No sensory deficit - Psych Psych: Normal mood, Normal affect Results - Vitals Vitals: Vital Signs - 24 hr 09/19/18 09/19/18 09:20 12:03 Temperature 36.4 C L 36.5 C Heart Rate 94 77 Respiratory 14 18 Rate Blood Pressure 144/74 H 100/53 L O2 Saturation 98 98 Oxygen O2 Source [With Activity] Nasal cannula O2 Source Room air PD MEDICAL DECISION MAKING - ED course Complexity details: reviewed results, re-evaluated patient, considered differential (Fracture, dislocation, contusion), d/w patient ED course: 1244 patient's x-ray finally resulted. Inform of test results. Instructed to use pillow splinting to hold onto her right rib fracture when deep breathing and coughing and walking. Patient states she has high dose Motrin at home and requesting for stronger pain medication such as hydrocodone.Discussed risk and side effects of hydrocodone. Patient expressed understanding. States she will drink water, eat high-fiber food and take [id number] stool softener to prevent constipation related to hydrocodone. Departure - Departure Disposition: 01 Home, Self Care Clinical Impression: Contusion, shoulder /upper arm Fall Qualifiers: Encounter type: initial encounter Qualified Code(s): W19.XXXA - Unspecified fall, initial encounter Rib fractures Qualifiers: Encounter type: initial encounter Rib fracture type: multiple ribs Fracture type: closed Laterality: right Qualified Code(s): S22.41XA - Multiple fractures of ribs, right side, initial encounter for closed fracture Condition: Stable Instructions: ED Fx Rib, ED Contusion Upper Extr Ch Prescriptions: Hydrocodone/Acetaminophen [Hydrocodon-Acetaminophen 5-325] 1 - 2 each PO Q6H PRN #14 tablet PRN Reason: pain Comments: You may continue your prescription patient for Motrin. Only take the hydrocodone for breakthrough pain. Maintain safety while taking the hydrocodone. Drink lots of water, eat high-fiber foods and take [id number] stool softener to prevent constipation from narcotic pain medication. Use the pillow to splint her right rib fracture for deep breathing and coughing and walking. Follow-up with your primary doctor this week. If worse return to the emergency room.
[2018-09-19] MEDS ORDERED: HYDROcod/ACETAM 5/325 MG TABLET PO STA (13:05)
[2018-09-19 13:15] VITALS: BP 127/82
== END 2018-09-19 13:19 | disposition home or self-care (01) ==
LOC: ED 09:11
DX: S22.41XA Multiple fractures of ribs, right side, initial encounter for closed fracture (principal); S40.011A Contusion of right shoulder, initial encounter; S40.021A Contusion of right upper arm, initial encounter; W18.30XA Fall on same level, unspecified, initial encounter; Y93.89 Activity, other specified; E11.9 Type 2 diabetes mellitus without complications; Z79.84 Long term (current) use of oral hypoglycemic drugs; I10 Essential (primary) hypertension; J43.9 Emphysema, unspecified; F17.200 Nicotine dependence, unspecified, uncomplicated; Z79.82 Long term (current) use of aspirin
CPT/HCPCS: 71101; 73030; 73502; 99283; A9270

== ENCOUNTER 2018-09-30 13:22 | Outpatient (CLI) | payer MEDICARE, MEDICAID | END 2018-09-30 13:23 | disposition critical access hospital (66) | LOC: EMS 13:22 | PROVIDERS: ATTEND Surgery | DX: R06.00 Dyspnea, unspecified (principal); R07.81 Pleurodynia | CPT/HCPCS: A0425; A0427 ==

== ENCOUNTER 2018-09-30 13:55 | Emergency (ER) | payer MEDICARE, MEDICAID ==
--- NOTE | 2018-09-30 14:50 | ED Physician Documentation ---
History of Present Illness - Stated complaint Stated Complaint: RIB PAIN - Chief complaint Chief Complaint: General - History obtained from History obtained from: Patient - History of Present Illness Timing: How many days ago (3) Pain level max: 5 Pain level now: 5 - Treatment prior to arrival Treatment prior to arrival: Patient received morphine 2 mg from EMS. - Additonal information Additional information: 58-year-old female with history of Balance issues,diabetes, hypertension, COPD, bipolar, rib 7/8 right-sided fracture from a fall in September 17 and was seen here in the emergency room on the here with complaint of falling 3 days ago in her carpeted room. She stated she rolled out of bed and landed on her right side. States her pain now had gone on the right lower rib and radiating around towards her back. Patient states has an appointment with the neurologist from [facility] in October To evaluate her balance issues. Per nurse patient receive morphine from EMS and her blood pressure dropped so IV fluid is running. Review of Systems Ten Systems: 10 systems reviewed and negative Constitutional: denies: Fever, Myalgias Cardiac: denies: Chest pain / pressure, Palpitations Respiratory: denies: Dyspnea, Cough GI: denies: Abdominal Pain Skin: denies: Rash Musculoskeletal: denies: Neck pain, Back pain, Extremity pain Neurologic: denies: Generalized weakness, Focal weakness, Numbness, Headache, Head injury, LOC PD PAST MEDICAL HISTORY - Past Medical History Past Medical History: Yes Cardiovascular: Hypertension, High cholesterol Respiratory: COPD, Emphysema, Shortness of breath, Sleep apnea, Other Endocrine/Autoimmune: Type 2 diabetes GI: GERD, Hiatal hernia 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: Other : Incontinence, Renal insuffiency, Nocturia HEENT: Chronic vision loss Psych: Anxiety, Bipolar disorder, Post traumatic stress disorder, Claustrophobia, Other Musculoskeletal: Osteoarthritis, Fibromyalgia, Chronic back pain Derm: None - Past Surgical History Past Surgical History: Yes General: Gastric surgery Ortho: Spine surgery /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: section, Hysterectomy, Oophrectomy - Present Medications Home Medications: Ambulatory Orders Medication Instructions Recorded Confirmed RX: Omeprazole 20 mg PO BIDAC 05/03/13 07/26/18 RX: buPROPion [Wellbutrin Sr] 200 mg PO BID 05/03/13 07/26/18 RX: Duloxetine HCl 120 mg PO DAILY 01/10/16 07/26/18 RX: Prazosin HCl [Minipress] 10 mg PO QPM 01/10/16 07/26/18 RX: lamoTRIgine [LaMICtal] 200 mg PO DAILY 01/10/16 07/26/18 RX: Hydroxyzine Pamoate [Vistaril] 50 mg PO TID PRN 01/23/17 07/26/18 RX: Simvastatin [Zocor] 20 mg PO QPM 01/23/17 07/26/18 RX: Aspirin 81 mg PO DAILY 11/03/17 07/26/18 RX: Fluticasone [Flonase] 2 sprays MARKO DAILY PRN 11/03/17 07/26/18 RX: Lisinopril 2.5 mg PO DAILY 11/03/17 07/26/18 RX: Metformin HCl 500 mg PO BIDWM 11/03/17 07/26/18 RX: ARIPiprazole [Aripiprazole] 2 mg PO DAILY 07/26/18 07/26/18 RX: Amitriptyline HCl 100 mg PO QPM 07/26/18 07/26/18 RX: Estradiol 0.5 mg PO DAILY 07/26/18 07/26/18 RX: QUEtiapine [SEROquel] 25 mg PO QPM 07/26/18 07/26/18 RX: clonazePAM [Clonazepam] 1 mg PO BID PRN 07/26/18 07/26/18 RX: Furosemide 20 mg PO MOWEFR #12 tablet 07/28/18 RX: Gabapentin [Neurontin] 600 mg PO TID #90 tablet 07/28/18 RX: Ibuprofen 600 mg PO TID PRN #30 tablet 07/28/18 RX: Spironolactone [Aldactone] 12.5 mg PO BIDWM #30 tablet 07/28/18 Hydrocodone/Acetaminophen 1 - 2 each PO Q6H PRN #14 tablet 09/19/18 [Hydrocodon-Acetaminophen 5-325] Hydrocodone/Acetaminophen 1 each PO Q6H PRN #14 tablet 09/30/18 [Hydrocodon-Acetaminophen 5-325] Lidocaine Patch 5% [Lidoderm Patch] 1 patch TOP DAILY PRN #10 patch 09/30/18 - Allergies Allergies/Adverse Reactions: Allergies Allergy/AdvReac Type Severity Reaction Status Date / Time Sulfa (Sulfonamide Allergy oral Verified 09/30/18 14:05 Antibiotics) blisters - Social History Does the pt smoke?: Yes Smoking Status: Current every day smoker Does the pt drink ETOH?: No Does the pt have substance abuse?: Yes - Immunizations Immunizations are current?: Yes Immunizations: TDAP current <10years - POLST Patient has POLST: No POLST Status: Full Code PD ED PE NORMAL - Vitals Vital signs reviewed: Yes - General General: Alert and oriented X 3, No acute distress, Well developed/nourished - HEENT HEENT: PERRL, Moist mucous membranes, Pharynx benign - Neck Neck: Supple, no meningeal sign, No bony TTP - Cardiac Cardiac: RRR, No murmur - Respiratory Respiratory: No respiratory distress, Clear bilaterally - Abdomen Abdomen: Normal bowel sounds, Soft, Non tender, Non distended - Back Back: No CVA TTP, No spinal TTP, Other (Mild tenderness to palpation of right lower rib cage posteriorly. No step-off. No flail chest. No abrasions or ecchymosis.) - Derm Derm: Warm and dry - Extremities Extremities: No deformity - Neuro Neuro: Alert and oriented X 3 - Psych Psych: Normal mood, Normal affect Results - Vitals Vitals: Vital Signs - 24 hr 09/30/18 09/30/18 09/30/18 13:58 14:47 16:02 Temperature 36.7 C 36.7 C Heart Rate 74 74 73 Respiratory 16 20 20 Rate Blood Pressure 108/60 109/63 102/59 L O2 Saturation 98 99 98 Oxygen O2 Source [With Activity] Nasal cannula O2 Source Nasal cannula PD MEDICAL DECISION MAKING - ED course Complexity details: reviewed results, re-evaluated patient, considered d ifferential (Rib fracture, rib contusion, chronic pain), d/w patient, d/w storage management consultant ED course: 1526 call from radiologist stating patient is right rib fracture. 1526 call from radiologist stating patient is right rib fractures 6, 7, 8. [id number] nurse informed me patient is requesting for pain medication. Patient informed of x-ray results. Requesting for pain medication. Will give hydrocodone. Patient states also takes Tylenol and Motrin at home Which does not help. We will discharged on hydrocodone and lidocaine patch. Departure - Departure Disposition: 01 Home, Self Care Clinical Impression: Closed rib fracture Qualifiers: Encounter type: subsequent encounter Rib fracture type: multiple ribs Laterality: right Fracture healing: with delayed healing Qualified Code(s): S22.41XG - Multiple fractures of ribs, right side, subsequent encounter for fracture with delayed healing Condition: Stable Instructions: ED Fx Rib Prescriptions: Hydrocodone/Acetaminophen [Hydrocodon-Acetaminophen 5-325] 1 each PO Q6H PRN #14 tablet PRN Reason: pain Lidocaine Patch 5% [Lidoderm Patch] 1 patch TOP DAILY PRN #10 patch PRN Reason: pain Comments: Maintain safety especially when taking hydrocodone. Follow-up with your primary doctor this week for reevaluation and medication refills. If worse return to the emergency room. Discharge Date/Time: 09/30/18 16:42
--- NOTE | 2018-09-30 15:50 | XRAY Report ---
Reason: fall Procedure Date: 09/30/2018 Accession Number: [id number] / [id number] Procedure: XR - Ribs w/PA Chest RT CPT Code: FULL RESULT: EXAM: RIGHT RIB RADIOGRAPHY EXAM DATE: 09/30/2018 03:10 PM. CLINICAL HISTORY: Fall, painful rib cage. COMPARISON: Ribs with PA chest right 09/19/2018 10:48 am. TECHNIQUE: 1 view of the chest and 2 views of the ribs. FINDINGS: Bones: Fractures of the right sixth, seventh and eighth ribs. Lungs: No focal opacities. No pneumothorax. No pleural effusions. Mediastinum: Heart and mediastinal contours are unremarkable. Other: None. IMPRESSION: Fractures of at least the right sixth through eighth ribs. RADIA The above findings of rib fractures were discussed with Corrina Lara by Dr. Adolfo Churchill at 15:15 Hrs on 09/30/18.
[2018-09-30] MEDS ORDERED: HYDROcod/ACETAM 5/325 MG TABLET PO STA (15:55)
[2018-09-30 16:04] VITALS: BP 102/59
== END 2018-09-30 16:42 | disposition home or self-care (01) ==
LOC: EDUNIT# → ED 13:55
DX: S22.41XG Multiple fractures of ribs, right side, subsequent encounter for fracture with delayed healing (principal); I10 Essential (primary) hypertension; E11.9 Type 2 diabetes mellitus without complications; Z79.84 Long term (current) use of oral hypoglycemic drugs; F17.200 Nicotine dependence, unspecified, uncomplicated
CPT/HCPCS: 71101; 99283; A9270

== ENCOUNTER 2018-11-30 11:12 | Emergency (ER) | payer MEDICARE, MEDICAID ==
--- NOTE | 2018-11-30 11:56 | XRAY Report ---
Reason: SOB Procedure Date: 11/30/2018 Accession Number: [id number] / [id number] Procedure: XR - Chest 2 View X-Ray CPT Code: 30434 FULL RESULT: EXAM: CHEST RADIOGRAPHY EXAM DATE: 11/30/2018 11:39 AM. CLINICAL HISTORY: Shortness of breath. Cough, congestion. COMPARISON: RIBS W/PA CHEST RT 09/30/2018 2:49 PM RIBS W/PA CHEST RT 09/19/2018 10:48 AM. TECHNIQUE: 2 views. FINDINGS: Lungs/Pleura: There is mild pulmonary vascular congestion and interstitial edema, increased compared to prior. There is increased streaky horizontal linear atelectasis or scarring in the left midlung. There has been interval decrease in previously seen right midlung and right basilar subsegmental atelectasis. No pleural effusion or pneumothorax. Mediastinum: Heart and mediastinal contours are unremarkable. There is mild atherosclerotic calcification of the aortic arch. Other: The previously described right anterior rib fractures are not well visualized on the current exam. No acute displaced fracture visualized. There are mild degenerative disk changes of the thoracic spine. IMPRESSION: Mild pulmonary vascular congestion and interstitial edema, increased compared to 09/30/2018. RADIA
[2018-11-30] MEDS ORDERED: predniSONE 20 MG TABLET PO STA (12:47)
[2018-11-30] MEDS ORDERED: AMOX/CLAV 875 MG/125 MG TABLET PO STA (12:47)
[2018-11-30] MEDS ORDERED: IPRATROPIUM/ALBUTEROL 3 ML NEB INH STA (12:47)
[2018-11-30] MEDS ORDERED: HYDROcod/ACETAM 5/325 MG TABLET PO STA (12:48)
--- NOTE | 2018-11-30 12:55 | ED Physician Documentation ---
PD HPI URI - Stated complaint Stated Complaint: DIFFICULTY BREATHING - Chief complaint Chief Complaint: Resp - History obtained from History obtained from: Patient - History of Present Illness Timing - onset: Other (She has had a productive cough for about a week with thick sputum but not very colored. No hemoptysis. She has had shortness of breath and had some low pulse oximetry readings at home today although she is not sure her pulse oximeter is working right. She denies any fevers or chest pain except with coughing. There is no pedal edema. She has a history of COPD, pneumonia, CHF.) Review of Systems Constitutional: reports: Fatigue. 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: Other : Incontinence, Renal insuffiency, Nocturia HEENT: Chronic vision loss Psych: Anxiety, Bipolar disorder, Post traumatic stress disorder, Claustrophobia, Other Musculoskeletal: Osteoarthritis, Fibromyalgia, Chronic back pain Derm: None - Past Surgical History Past Surgical History: Yes General: Gastric surgery Ortho: Spine surgery /FERRY OPERATOR: section, Hysterectomy, Oophrectomy - Present Medications Home Medications: Ambulatory Orders Medication Instructions Recorded Confirmed Omeprazole 20 mg PO BIDAC 05/03/13 07/26/18 buPROPion [Wellbutrin Sr] 200 mg PO BID 05/03/13 07/26/18 Duloxetine HCl 120 mg PO DAILY 01/10/16 07/26/18 Prazosin HCl [Minipress] 10 mg PO QPM 01/10/16 07/26/18 lamoTRIgine [LaMICtal] 200 mg PO DAILY 01/10/16 07/26/18 Hydroxyzine Pamoate [Vistaril] 50 mg PO TID PRN 01/23/17 07/26/18 Simvastatin [Zocor] 20 mg PO QPM 01/23/17 07/26/18 Aspirin 81 mg PO DAILY 11/03/17 07/26/18 Fluticasone [Flonase] 2 sprays MARKO DAILY PRN 11/03/17 07/26/18 Lisinopril 2.5 mg PO DAILY 11/03/17 07/26/18 Metformin HCl 500 mg PO BIDWM 11/03/17 07/26/18 ARIPiprazole [Aripiprazole] 2 mg PO DAILY 07/26/18 07/26/18 Amitriptyline HCl 100 mg PO QPM 07/26/18 07/26/18 Estradiol 0.5 mg PO DAILY 07/26/18 07/26/18 QUEtiapine [SEROquel] 25 mg PO QPM 07/26/18 07/26/18 clonazePAM [Clonazepam] 1 mg PO BID PRN 07/26/18 07/26/18 Furosemide 20 mg PO MOWEFR #12 tablet 07/28/18 Gabapentin [Neurontin] 600 mg PO TID #90 tablet 07/28/18 Ibuprofen 600 mg PO TID PRN #30 tablet 07/28/18 Spironolactone [Aldactone] 12.5 mg PO BIDWM #30 tablet 07/28/18 Hydrocodone/Acetaminophen 1 - 2 each PO Q6H PRN #14 tablet 09/19/18 [Hydrocodon-Acetaminophen 5-325] Hydrocodone/Acetaminophen 1 each PO Q6H PRN #14 tablet 09/30/18 [Hydrocodon-Acetaminophen 5-325] Lidocaine Patch 5% [Lidoderm Patch] 1 patch TOP DAILY PRN #10 patch 09/30/18 Amox/Clav 875/125 [Augmentin] 1 each PO Q12H #14 tablet 11/30/18 Hydrocodone/Acetaminophen 1 - 2 each PO Q6H PRN #10 tablet 11/30/18 [Hydrocodon-Acetaminophen 5-325] guaiFENesin/CODEINE [Robitussin AC] 5 - 10 ml PO Q6H PRN #120 ml 11/30/18 predniSONE [Deltasone] 60 mg PO DAILY 5 Days tablet 11/30/18 - Allergies Allergies/Adverse Reactions: Allergies Allergy/AdvReac Type Severity Reaction Status Date / Time Sulfa (Sulfonamide Allergy oral Verified 11/30/18 11:17 Antibiotics) blisters - Social History Does the pt smoke?: Yes Smoking Status: Current every day smoker Does the pt drink ETOH?: No Does the pt have substance abuse?: Yes - Immunizations Immunizations are current?: Yes Immunizations: TDAP current <10years - POLST Patient has POLST: No POLST Status: Full Code PD ED PE NORMAL - Vitals Vital signs reviewed: Yes - General General: Alert and oriented X 3, No acute distress - HEENT HEENT: Pharynx benign - Neck Neck: Supple, no meningeal sign, No bony TTP, No JVD - Cardiac Cardiac: RRR, No murmur - Respiratory Respiratory: Other (Rhonchorous throughout with mild wheezing and mild diminished, no rales. She is nonlabored.) - Abdomen Abdomen: Non tender - Extremities Extremities: No edema, No calf tenderness / cord - Neuro Neuro: Alert and oriented X 3, Normal speech Results - Vitals Vitals: Vital Signs - 24 hr 11/30/18 11/30/18 11:15 12:04 Temperature 36.4 C L Heart Rate 90 81 Respiratory 20 16 Rate Blood Pressure 129/74 112/62 O2 Saturation 89 L 96 Oxygen O2 Source [With Activity] Nasal cannula O2 Source Nasal cannula - Rads (name of study) 2v chest Radiology: EMP read contemporaneously (Mild congestion of the vascular spaces without pneumonia) PD MEDICAL DECISION MAKING - ED course ED course: This is a 58-year-old woman who presents with a history and physical consistent with a CHF exacerbation. There is no evidence clinically of heart failure despite the chest x-ray read and this is treated as a COPD flare. She has oxygen at home. She is counseled to quit smoking. Departure - Departure Disposition: 01 Home, Self Care Clinical Impression: COPD exacerbation COPD (chronic obstructive pulmonary disease) Qualifiers: COPD type: chronic bronchitis Chronic bronchitis type: mixed simple and mucopurulent Qualified Code(s): J41.8 - Mixed simple and mucopurulent chronic bronchitis Condition: Good Record reviewed to determine appropriate education?: Yes Instructions: COPD Dc Prescriptions: Amox/Clav 875/125 [Augmentin] 1 each PO Q12H #14 tablet guaiFENesin/CODEINE [Robitussin AC] 5 - 10 ml PO Q6H PRN #120 ml PRN Reason: Cough Hydrocodone/Acetaminophen [Hydrocodon-Acetaminophen 5-325] 1 - 2 each PO Q6H PRN #10 tablet PRN Reason: pain predniSONE [Deltasone] 60 mg PO DAILY 5 Days tablet Comments: Return for new or worsening symptoms or if your oxygen level is below about 88 or 89% despite being on your oxygen. Follow-up with your doctor in 2 days for recheck.
[2018-11-30 13:40] VITALS: BP 114/60
== END 2018-11-30 13:37 | disposition home or self-care (01) ==
LOC: ED 11:12
DX: J44.1 Chronic obstructive pulmonary disease with (acute) exacerbation (principal); I10 Essential (primary) hypertension; E78.00 Pure hypercholesterolemia, unspecified; E11.9 Type 2 diabetes mellitus without complications; F17.200 Nicotine dependence, unspecified, uncomplicated; Z79.84 Long term (current) use of oral hypoglycemic drugs; Z79.82 Long term (current) use of aspirin
CPT/HCPCS: 71046; 94640; 99283; A9270; J7512

== ENCOUNTER 2018-12-19 09:17 | Outpatient (CLI) | payer MEDICARE, MEDICAID | END 2018-12-19 09:18 | disposition critical access hospital (66) | LOC: EMS 09:17 | PROVIDERS: ATTEND Surgery | DX: S99.911A Unspecified injury of right ankle, initial encounter (principal); W19.XXXA Unspecified fall, initial encounter; Y92.009 Unspecified place in unspecified non-institutional (private) residence as the place of occurrence of the external cause | CPT/HCPCS: A0425; A0429 ==

== ENCOUNTER 2018-12-19 09:43 | Emergency (ER) | payer MEDICARE, MEDICAID ==
--- NOTE | 2018-12-19 09:56 | ED Physician Documentation ---
History of Present Illness - Stated complaint Stated Complaint: LEFT ANKLE PX - Chief complaint Chief Complaint: General - History obtained from History obtained from: Patient - History of Present Illness Timing: Last night - Additonal information Additional information: Vision is a 58-year-old female presenting with right lower leg and ankle pain after mechanical fall last night. Patient reports that she got up in the middle of the night was using her walker and was standing in front of the refrigerator, but her walker did not have the break in place, and she fell forward slightly and landed on her ankle. Patient denies striking of head, loss of consciousness, or other injury. Patient has been able to bear weight minimally. She denies persistent significant swelling, ecchymosis, changes in sensation, but does admit to difficulty with range of motion. Patient denies pain or complaints to areas of the remainder of her right lower extremity, left lower extremity, neck, back, or otherwise. Patient denies particular improving or worsening symptoms. Patient was otherwise at her normal state of health prior to this episode and denies any specific inciting symptoms such as chest pain, difficulty breathing, fever, lightheadedness, or otherwise. 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: Other : Incontinence, Renal insuffiency, Nocturia HEENT: Chronic vision loss Psych: Anxiety, Bipolar disorder, Post traumatic stress disorder, Claustrophobia, Other Musculoskeletal: Osteoarthritis, Fibromyalgia, Chronic back pain Derm: None - Past Surgical History Past Surgical History: Yes General: Gastric surgery Ortho: Spine surgery /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: section, Hysterectomy, Oophrectomy - Present Medications Home Medications: Ambulatory Orders Medication Instructions Recorded Confirmed RX: Omeprazole 20 mg PO BIDAC 05/03/13 07/26/18 RX: buPROPion [Wellbutrin Sr] 200 mg PO BID 05/03/13 07/26/18 RX: Duloxetine HCl 120 mg PO DAILY 01/10/16 07/26/18 RX: Prazosin HCl [Minipress] 10 mg PO QPM 01/10/16 07/26/18 RX: lamoTRIgine [LaMICtal] 200 mg PO DAILY 01/10/16 07/26/18 RX: Hydroxyzine Pamoate [Vistaril] 50 mg PO TID PRN 01/23/17 07/26/18 RX: Simvastatin [Zocor] 20 mg PO QPM 01/23/17 07/26/18 RX: Aspirin 81 mg PO DAILY 11/03/17 07/26/18 RX: Fluticasone [Flonase] 2 sprays MARKO DAILY PRN 11/03/17 07/26/18 RX: Lisinopril 2.5 mg PO DAILY 11/03/17 07/26/18 RX: Metformin HCl 500 mg PO BIDWM 11/03/17 07/26/18 RX: ARIPiprazole [Aripiprazole] 2 mg PO DAILY 07/26/18 07/26/18 RX: Amitriptyline HCl 100 mg PO QPM 07/26/18 07/26/18 RX: Estradiol 0.5 mg PO DAILY 07/26/18 07/26/18 RX: QUEtiapine [SEROquel] 25 mg PO QPM 07/26/18 07/26/18 RX: clonazePAM [Clonazepam] 1 mg PO BID PRN 07/26/18 07/26/18 RX: Furosemide 20 mg PO MOWEFR #12 tablet 07/28/18 RX: Gabapentin [Neurontin] 600 mg PO TID #90 tablet 07/28/18 RX: Ibuprofen 600 mg PO TID PRN #30 tablet 07/28/18 RX: Spironolactone [Aldactone] 12.5 mg PO BIDWM #30 tablet 07/28/18 Hydrocodone/Acetaminophen 1 - 2 each PO Q6H PRN #14 tablet 09/19/18 [Hydrocodon-Acetaminophen 5-325] Hydrocodone/Acetaminophen 1 each PO Q6H PRN #14 tablet 09/30/18 [Hydrocodon-Acetaminophen 5-325] Lidocaine Patch 5% [Lidoderm Patch] 1 patch TOP DAILY PRN #10 patch 09/30/18 Amox/Clav 875/125 [Augmentin] 1 each PO Q12H #14 tablet 11/30/18 Hydrocodone/Acetaminophen 1 - 2 each PO Q6H PRN #10 tablet 11/30/18 [Hydrocodon-Acetaminophen 5-325] RX: predniSONE [Deltasone] 60 mg PO DAILY 5 Days tablet 11/30/18 guaiFENesin/CODEINE [Robitussin AC] 5 - 10 ml PO Q6H PRN #120 ml 11/30/18 Hydrocodone/Acetaminophen 1 - 2 each PO Q6H PRN #14 tablet 12/19/18 [Hydrocodon-Acetaminophen 5-325] - Allergies Allergies/Adverse Reactions: Allergies Allergy/AdvReac Type Severity Reaction Status Date / Time Sulfa (Sulfonamide Allergy Mild oral Verified 12/19/18 11:58 Antibiotics) blisters - Social History Does the pt smoke?: Yes Smoking Status: Current every day smoker Does the pt drink ETOH?: No Does the pt have substance abuse?: Yes - Immunizations Immunizations are current?: Yes Immunizations: TDAP current <10years - POLST Patient has POLST: No POLST Status: Full Code PD ED PE NORMAL - General General: Alert and oriented X 3, No acute distress, Well developed/nourished - HEENT HEENT: Atraumatic - Cardiac Cardiac: RRR, No murmur, Strong equal pulses (Capillary refill brisk) - Respiratory Respiratory: No respiratory distress, Clear bilaterally - Derm Derm: Normal color, Warm and dry, No rash - Extremities Extremities: No deformity, Other (Mild swelling noted with tenderness to the distal, right fibula anteriorly and diffusely throughout right ankle. Limited range of motion due to pain at ankle only.) - Neuro Neuro: No motor deficit, No sensory deficit - Psych Psych: Normal mood, Normal affect Results - Vitals Vitals: Vital Signs - 24 hr 12/19/18 12/19/18 09:47 12:09 Temperature 36.5 C Heart Rate 88 78 Respiratory 14 16 Rate Blood Pressure 127/62 138/74 H O2 Saturation 92 Oxygen O2 Source [With Activity] Nasal cannula O2 Source Room air Procedures - Splint (location) Lower extremity right Type of splint: Fiberglass, Posterior, Stirrup Other: Patient tolerated well, No complications, Neurovascular intact PD MEDICAL DECISION MAKING - ED course Complexity details: re-evaluated patient, considered differential, d/w patient, d/w therapeutic consultant ED course: Patient presenting with complaints to right lower extremity and have low suspicion for underlying systemic illness or other causes of fall besides mechanical. Do not feel she requires invasive testing and exam further limited to right lower extremity. Do have concern for possible fracture and obtained plain films. Patient received pain medication. Plain films reveal closed, oblique fracture to the distal fibula. Discussed results and recommendations with patient including placement of splint, which was performed in the ED without issue.Book with orthopedic surgery who agreed with splinting and outpatient follow-up. Patient also prescribed pain medication for home and was understanding of follow-up, return precautions, and other supportive cares. Departure - Departure Disposition: 01 Home, Self Care Clinical Impression: Fracture, fibula closed, shaft Condition: Good Instructions: ED Fx Lower Ext Follow-Up: Wilfred Davis MD [Provider Admit Priv/Credential] - Within 3 Days Prescriptions: Hydrocodone/Acetaminophen [Hydrocodon-Acetaminophen 5-325] 1 - 2 each PO Q6H PRN #14 tablet PRN Reason: pain Comments: Please keep splint clean, dry, and in place until follow-up later this week. Also recommendElevation and ice application. Please take pain medication with a small amount of food as instructed to avoid nausea and vomiting. Please contact orthopedic surgery later today or tomorrow to schedule outpatient appointment later this week for further evaluation. Return to ED sooner if experience worsening pain, complications with medications or splint, or other concerns. Discharge Date/Time: 12/19/18 12:35
--- NOTE | 2018-12-19 11:48 | XRAY Report ---
Reason: fall from ground level Procedure Date: 12/19/2018 Accession Number: [id number] / [id number] Procedure: XR - Tib/Fib RT CPT Code: FULL RESULT: EXAM: RIGHT TIBIA/FIBULA RADIOGRAPHY EXAM DATE: 12/19/2018 11:25 AM. CLINICAL HISTORY: Fall from ground level, remote history of left ankle fracture. COMPARISON: LEG LOWER RT 06/02/2013 2:49 PM. TECHNIQUE: 2 views. FINDINGS: Bones: There is acute oblique fracture in the distal fibula, detail in the ankle x-ray report on the same day. Otherwise, no fracture or bone lesion. Joints: The visualized knee and ankle joints are normal. No effusions. Soft Tissues: No radiopaque foreign body. IMPRESSION: Acute oblique fracture in the distal fibula, detail in the ankle x-ray report on the same day. Otherwise, negative Tibia/fibula radiography. RADIA
--- NOTE | 2018-12-19 11:51 | XRAY Report ---
Reason: fall from ground level Procedure Date: 12/19/2018 Accession Number: [id number] / [id number] Procedure: XR - Ankle 3 View RT CPT Code: FULL RESULT: EXAM: RIGHT ANKLE RADIOGRAPHY EXAM DATE: 12/19/2018 11:25 AM. CLINICAL HISTORY: Ankle pain. Fall from ground level yesterday. COMPARISON: ANKLE 3 VIEW RT 06/02/2013 5:12 PM. TECHNIQUE: 3 views. FINDINGS: Bones: There is new oblique fracture without displacement in the distal fibula. No other fractures or bone lesions in the ankle identified. Joints: No effusion. No subluxations. The ankle mortise is normally aligned. Soft Tissues: No radiopaque foreign body seen. IMPRESSION: Nondisplaced acute oblique fracture in the distal fibula. RADIA
[2018-12-19] MEDS ORDERED: HYDROcod/ACETAM 5/325 MG TABLET PO STA (11:58)
[2018-12-19 12:12] VITALS: BP 138/74
== END 2018-12-19 12:35 | disposition home or self-care (01) ==
LOC: ED 09:43
DX: S82.492A Other fracture of shaft of left fibula, initial encounter for closed fracture (principal); W18.30XA Fall on same level, unspecified, initial encounter; I10 Essential (primary) hypertension; E78.00 Pure hypercholesterolemia, unspecified; E11.9 Type 2 diabetes mellitus without complications; Z79.84 Long term (current) use of oral hypoglycemic drugs; F17.200 Nicotine dependence, unspecified, uncomplicated
CPT/HCPCS: 29515; 73590; 73610; 99283; A9270

== ENCOUNTER 2019-03-10 13:52 | Outpatient (CLI) | payer MEDICARE, MEDICAID | END 2019-03-10 13:53 | disposition critical access hospital (66) | LOC: EMS 13:52 | PROVIDERS: ATTEND Surgery | DX: R07.9 Chest pain, unspecified (principal); R05 Cough | CPT/HCPCS: A0425; A0427 ==

== ENCOUNTER 2019-03-10 14:19 | Inpatient (IN) | payer MEDICARE, MEDICAID ==
[2019-03-10] MEDS ORDERED: IPRATROPIUM/ALBUTEROL 3 ML NEB INH STA (14:33)
[2019-03-10] MEDS ORDERED: SODIUM CHLORIDE 0.9% 1,000 ML IV ONE (14:33)
[2019-03-10] MEDS ORDERED: DEXAMETHASONE 10 MG/ML VIAL IVP STA (14:34)
--- NOTE | 2019-03-10 14:36 | ED Physician Documentation ---
PD HPI DYSPNEA - Stated complaint Stated Complaint: COUGH/ CHEST PAIN - Chief complaint Chief Complaint: Resp - History obtained from History obtained from: Patient - History of Present Illness Timing - onset: How many days ago (4) Timing - onset during: Rest Timing - duration: Days (4) Timing - details: Gradual onset, Still present Inciting event(s): URI Improved by: O2, Inhaler/neb Worsened by: Exertion, Coughing Associated symptoms: Cough, Wheezing, Chest pain / discomfort. No: Fever Similar symptoms before: Diagnosis (COPD) Recently seen: Not recently seen - Additional information Additional information: 58-year-old female with a history of COPD has developed increased shortness of breath cough and some chest soreness over the past 4 days. Review of Systems Constitutional: denies: Fever Eyes: denies: Decreased vision Ears: denies: Ear pain Nose: reports: Rhinorrhea / runny nose, Congestion Throat: denies: Sore throat Cardiac: reports: Chest pain / pressure. denies: Palpitations, Pedal edema, Calf pain Respiratory: reports: Dyspnea, Cough, Wheezing GI: denies: Abdominal Pain, Nausea, Vomiting : denies: Dysuria, Frequency PD PAST MEDICAL HISTORY - Past Medical History Cardiovascular: Hypertension, High cholesterol Respiratory: COPD, Emphysema, Shortness of breath, Sleep apnea, Other Endocrine/Autoimmune: Type 2 diabetes GI: GERD, Hiatal hernia [employer]: Other : Incontinence, Renal insuffiency, Nocturia HEENT: Chronic vision loss Psych: Anxiety, Bipolar disorder, Post traumatic stress disorder, Claustrophobia, Other Musculoskeletal: Osteoarthritis, Fibromyalgia, Chronic back pain Derm: None - Past Surgical History Past Surgical History: Yes General: Gastric surgery Ortho: Spine surgery /[employer]: section, Hysterectomy, Oophrectomy - Present Medications Home Medications: Ambulatory Orders Medication Instructions Recorded Confirmed Omeprazole 20 mg PO 0800,199905/03/13 03/10/19 Duloxetine HCl 120 mg PO 0800 01/10/16 03/10/19 Prazosin HCl [Minipress] 10 mg PO 199901/10/16 03/10/19 lamoTRIgine [LaMICtal] 200 mg PO 1400 01/10/16 03/10/19 Hydroxyzine Pamoate [Vistaril] 50 mg PO 0800,1400,199901/23/17 03/10/19 Simvastatin [Zocor] 20 mg PO 199901/23/17 03/10/19 Lisinopril 2.5 mg PO 0800 11/03/17 03/10/19 Metformin HCl 500 mg PO 0800,199911/03/17 03/10/19 Amitriptyline HCl 100 mg PO 199907/26/18 03/10/19 Estradiol 0.5 mg PO 0800 07/26/18 03/10/19 QUEtiapine [SEROquel] 25 mg PO 1400 PRN 07/26/18 03/10/19 Aspirin [Aspirin EC] 81 [place] 79903/10/19 03/10/19 Clonazepam 0.5 mg PO 0800,199903/10/19 03/10/19 Furosemide 20 [place] 7[address]03/10/19 03/10/19 Gabapentin [Neurontin] 600 mg PO 0800,1400,199903/10/19 03/10/19 Ibuprofen [Ibu] 800 [place] 7[address]03/10/19 03/10/19 Potassium [place] [address]/10/19 03/10/19 buPROPion HCl [Bupropion HCl Sr] 100 mg PO 0800,1400,199903/10/19 03/10/19 - Allergies Allergies/Adverse Reactions: Allergies Allergy/AdvReac Type Severity Reaction Status Date / Time Sulfa (Sulfonamide Allergy Mild oral Verified 12/19/18 11:58 Antibiotics) blisters - Social History Does the pt smoke?: Yes Smoking Status: Current every day smoker Does the pt drink ETOH?: No Does the pt have substance abuse?: Yes - Immunizations Immunizations are current?: Yes Immunizations: TDAP current <10years - POLST Patient has POLST: No POLST Status: Full Code PD ED PE NORMAL - Vitals Vital signs reviewed: Yes (hypertensive ) - General General: Alert and oriented X 3, Well developed/nourished - HEENT HEENT: Atraumatic, PERRL, EOMI - Neck Neck: Supple, no meningeal sign - Cardiac Cardiac: RRR, Other (2/6 holosystolic murmer at LSB) - Respiratory Respiratory: No respiratory distress, Other (diminished breath sounds bilat) - Abdomen Abdomen: Soft, Non tender - Back Back: No CVA TTP, No spinal TTP - Derm Derm: Normal color, Warm and dry, No rash - Extremities Extremities: No deformity, No edema - Neuro Neuro: Alert and oriented X 3, sawmill hand 2-12 intact, No motor deficit, No sensory deficit, Normal speech Eye Opening: Spontaneous Motor: Obeys Commands Verbal: Oriented GCS Score: 15 - Psych Psych: Normal mood, Normal affect Results - Vitals Vitals: Vital Signs - 24 hr 03/10/19 03/10/19 03/10/19 14:22 14:30 14:50 Temperature 37.4 C Heart Rate 87 88 87 Respiratory 16 18 20 Rate Blood Pressure 128/86 H 127/67 O2 Saturation 92 95 03/10/19 16:30 Temperature Heart Rate 89 Respiratory 24 Rate Blood Pressure 95/54 L O2 Saturation 94 Oxygen O2 Source [With Activity] Nasal cannula O2 Source Nasal cannula Oxygen Flow Rate 2 - EKG (time done) 1428 Rate: Rate (enter#) (89) QRS: Low voltage Compare to prior EKG: Unchanged from prior EKG (SPT 01-23-18 no changes) Computer interpretation: Agree with computer - Labs Labs: Laboratory Tests 03/10/19 03/10/19 03/10/19 14:51 14:51 14:51 WBC 11.6 H RBC 4.34 Hgb 9.4 L Hct 30.6 L MCV 70.5 L MCH 21.6 L MCHC 30.6 L RDW 18.1 H Plt Count 212 MPV 8.3 Neut # (Auto) 8.6 H Lymph # (Auto) 2.1 Aiken # (Auto) 0.6 Eos # (Auto) 0.2 Baso # (Auto) 0.2 H Absolute Nucleated RBC 0.00 Nucleated RBC % 0.0 Sodium 139 Potassium 3.6 Chloride 104 Carbon Dioxide 23 Anion Gap 12.0 BUN 6 Creatinine 0.7 Estimated GFR (MDRD) 86 L Glucose 118 H Calcium 8.7 Total Bilirubin 0.4 AST 24 ALT 22 Alkaline Phosphatase 124 H Troponin I < 0.04 B-Natriuretic Peptide Total Protein 7.1 Albumin 3.4 Globulin 3.7 Albumin/Globulin Ratio 0.9 L Lipase 29 Urine Color Urine Clarity Urine pH Ur Specific [place] Urine Protein Urine Glucose (UA) Urine Ketones Urine Occult Blood Urine Nitrite Urine Bilirubin Urine Urobilinogen Ur Leukocyte Esterase Ur Microscopic Review Urine Culture Comments 03/10/19 03/10/19 14:51 15:18 WBC RBC Hgb Hct MCV MCH MCHC RDW Plt Count MPV Neut # (Auto) Lymph # (Auto) Aiken # (Auto) Eos # (Auto) Baso # (Auto) Absolute Nucleated RBC Nucleated RBC % Sodium Potassium Chloride Carbon Dioxide Anion Gap BUN Creatinine Estimated GFR (MDRD) Glucose Calcium Total Bilirubin AST ALT Alkaline Phosphatase Troponin I B-Natriuretic Peptide 27 Total Protein Albumin Globulin Albumin/Globulin Ratio Lipase Urine Color YELLOW Urine Clarity CLEAR Urine pH 6.5 Ur Specific [place] <=1.005 Urine Protein NEGATIVE Urine Glucose (UA) NEGATIVE Urine Ketones NEGATIVE Urine Occult Blood NEGATIVE Urine Nitrite NEGATIVE Urine Bilirubin NEGATIVE Urine Urobilinogen 0.2 (NORMAL) Ur Leukocyte Esterase NEGATIVE Ur Microscopic Review NOT INDICATED Urine Culture Comments NOT INDICATED - Rads (name of study) chest 1 veiw Radiology: Prelim report reviewed (Impression: Mild pulmonary vascular congestion and interstitial edema. This appearance is similar to 11/30/2018.), EMP read indepedently, See rad report Procedures - IVC sono (time) 1530 Bedside IVC sono: IVC measures (cm) (0.77), IVC collapsed c insp (cm) (COMPLETE), Dehydration (est 2 liter deficit.) PD MEDICAL DECISION MAKING - ED course Complexity details: reviewed results, re-evaluated patient, considered differential, d/w patient ED course: 58-year-old female with a history of COPD has developed a worsening cough especially over the past 3 days she is been struggling for breath and has called the ambulance. She has been having to use her oxygen throughout the day and she has not been getting good relief with her nebulizer machine. She arrives to the emergency department short of breath she is administered dexamethasone and a DuoNeb treatment. On initial examination her lung sounds are distant and no obvious wheezes. The chest x-ray is concerning for appearance of bilateral infiltrate that is read by the radiologist as pulmonary edema. The patient does not appear to be in failure her IVC is interrogated it it collapses completely and is 0.78 consistent with significant dehydration. The BNP is 47.This patient appears to have pneumonia and exacerbation of COPD and hospitalization is indicated. Departure - Departure Disposition: 66 [facility] DC/Xfer Clinical Impression: Severe chronic obstructive pulmonary disease Pneumonia Qualifiers: Pneumonia type: due to unspecified organism Laterality: bilateral Lung location: lower lobe of lung Qualified Code(s): J18.1 - Lobar pneumonia, unspecified organism
[2019-03-10 14:57] LABS: BASOPHILS # (AUTO) 0.2 10^3/uL (0.0-0.1); BASOPHILS % (AUTO) 1.4 %; EOSINOPHILS # (AUTO) 0.2 10^3/uL (0.0-0.7); HGB - HEMOGLOBIN 9.4 g/dL (12.0-16.0); LYMPHOCYTES # (AUTO) 2.1 10^3/uL (1.5-3.5); LYMPHOCYTES % (AUTO) 17.7 %; MEAN CORPUSCULAR HEMOGLOBIN 21.6 pg (27.0-31.0); MEAN CORPUSCULAR HGB CONC 30.6 g/dL (32.0-36.0); MEAN CORPUSCULAR VOLUME 70.5 fL (81.0-99.0); MEAN PLATELET VOLUME 8.3 fL (7.9-10.8); MONOCYTES # (AUTO) 0.6 10^3/uL (0.0-1.0); MONOCYTES % (AUTO) 4.9 %; NEUTROPHILS # (AUTO) 8.6 10^3/uL (1.5-6.6); PLT - PLATELET COUNT 212 10^3/uL (130-450); RED BLOOD COUNT 4.34 10^6/uL (4.20-5.40); RED CELL DISTRIBUTION WIDTH 18.1 % (12.0-15.0); WHITE BLOOD COUNT 11.6 x10^3/uL (4.8-10.8)
--- NOTE | 2019-03-10 15:06 | XRAY Report ---
Reason: dyspnea Procedure Date: 03/10/2019 Accession Number: [id number] / [id number] Procedure: XR - Chest 1 View X-Ray CPT Code: 89784 FULL RESULT: EXAM: CHEST RADIOGRAPHY EXAM DATE: 03/10/2019 02:45 PM. CLINICAL HISTORY: Dyspnea. COMPARISON: CHEST 2 VIEW 11/30/2018 11:28 AM. TECHNIQUE: 1 view. FINDINGS: Lungs/Pleura: There is mild pulmonary vascular congestion and interstitial edema, similar to the prior exam. No focal pulmonary consolidation. No pleural effusion or pneumothorax. Mediastinum: Within exam limitations, the cardiomediastinal contour is normal. Other: No acute osseous abnormality. IMPRESSION: Mild pulmonary vascular congestion and interstitial edema. The appearance is similar to 11/30/2018. RADIA
[2019-03-10 15:12] LABS: ALBUMIN 3.4 g/dL (3.2-5.5); ALBUMIN/GLOBULIN RATIO 0.9 (1.0-2.2); BILIRUBIN,TOTAL 0.4 mg/dL (0.2-1.0); CALCIUM 8.7 mg/dL (8.5-10.3); CREATININE 0.7 mg/dL (0.4-1.0); TOTAL PROTEIN 7.1 g/dL (6.7-8.2)
[2019-03-10 15:31] LABS: BILIRUBIN,URINE NEGATIVE (NEGATIVE); GLUCOSE, URINE (UA) NEGATIVE (NEGATIVE); KETONES,URINE (UA) NEGATIVE (NEGATIVE); LEUKOCYTE ESTERASE, URINE NEGATIVE (NEGATIVE); NITRITE,URINE NEGATIVE (NEGATIVE); OCCULT BLOOD,URINE NEGATIVE (NEGATIVE); PH,URINE 6.5 PH (5.0-7.5); PROTEIN,URINE NEGATIVE (NEGATIVE); UROBILINOGEN,URINE 0.2 (NORMAL) E.U./dL (NORMAL)
[2019-03-10 15:32] LABS: CLARITY,URINE CLEAR (CLEAR)
[2019-03-10] MEDS ORDERED: PROCHLORPERAZINE 10 MG/2 ML VIAL IVP PRN (16:50)
[2019-03-10] MEDS ORDERED: ACETAMINOPHEN 325 MG TABLET PO PRN (16:50)
[2019-03-10] MEDS ORDERED: MORPHINE 2 MG/ML CARPUJECT IVP PRN (16:50)
[2019-03-10] MEDS ORDERED: SODIUM CHLORIDE FLUSH 0.9% 10 ML SYRINGE IVP PRN (16:50)
[2019-03-10] MEDS ORDERED: NICOTINE 14 MG PATCH TOP STA (17:17)
[2019-03-10] MEDS ORDERED: cefTRIAXone 1 GM in SODIUM CHLORIDE 0.9% MINIBAG 100 ML IV STA (17:18)
[2019-03-10] MEDS ORDERED: AZITHROMYCIN INJ 500 MG in SODIUM CHLORIDE 0.9% 250 ML IV SCH ×2 (17:30→19:00)
[2019-03-10] MEDS: SODIUM CHLORIDE FLUSH 0.9% 10 ML SYRINGE IVP SCH ×2 (18:15→23:40)
[2019-03-10] MEDS ORDERED: IPRATROPIUM/ALBUTEROL 3 ML NEB INH SCH (19:00)
[2019-03-10] MEDS ORDERED: IPRATROPIUM/ALBUTEROL 3 ML NEB INH PRN (19:00)
[2019-03-10] MEDS: BUDESONIDE 0.5 MG/2 ML NEB INH SCH (20:09)
[2019-03-10] MEDS: BENZOCAINE/MENTHOL LOZENGE MM PRN (20:50)
[2019-03-10] MEDS ORDERED: buPROPion SR 100 MG TABLET PO SCH (21:00)
[2019-03-10] MEDS ORDERED: FAMOTIDINE 20 MG TABLET PO SCH (21:00)
[2019-03-10] MEDS ORDERED: AMITRIPTYLINE 25 MG TABLET PO PRN (21:51)
[2019-03-10] MEDS ORDERED: methylPREDNISolone SUCCINATE 40 MG/ML VIAL IVP SCH (22:00)
[2019-03-10] MEDS: GABAPENTIN 300 MG CAPSULE PO SCH (22:11)
[2019-03-10] MEDS: clonazePAM 0.5 MG TABLET PO PRN (22:13)
[2019-03-10] MEDS: metFORMIN 500 MG TABLET PO SCH (22:16)
[2019-03-10] MEDS: INSULIN ASPART 300 UNIT/3 ML PEN SUBQ SCH (22:22)
[2019-03-10] MEDS: HYDROcod/ACETAM 5/325 MG TABLET PO PRN (22:59)
[2019-03-10] MEDS ORDERED: hydrOXYzine PAMOATE 25 MG CAPSULE PO PRN (23:36)
[2019-03-10] MEDS: AMPICILLIN/SULBACTAM 1.5 GM in SODIUM CHLORIDE 0.9% MINIBAG 100 ML IV SCH (23:40)
[2019-03-11] MEDS: BENZOCAINE/MENTHOL LOZENGE MM PRN ×4 (02:25→16:09)
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
[2019-03-11 06:22] LABS: HB2 TOTAL 8.5 g/dL; HEMOGLOBIN A1C 0.41 g/dL; HEMOGLOBIN A1C % 6.6 % (4.6-6.2)
[2019-03-11] MEDS: AMPICILLIN/SULBACTAM 1.5 GM in SODIUM CHLORIDE 0.9% MINIBAG 100 ML IV SCH ×3 (06:31→18:35)
[2019-03-11] MEDS: PANTOPRAZOLE 40 MG TABLET PO SCH (06:33)
--- NOTE | 2019-03-11 06:50 | XRAY Report ---
Reason: F/U infiltrates Procedure Date: 03/11/2019 Accession Number: [id number] / [id number] Procedure: XR - Chest 1 View X-Ray CPT Code: 12042 FULL RESULT: EXAM: CHEST RADIOGRAPHY EXAM DATE: 03/11/2019 06:17 AM. CLINICAL HISTORY: Shortness of breath. Follow-up infiltrates. COMPARISON: CHEST 1 VIEW 03/10/2019 2:31 PM. TECHNIQUE: 1 view. FINDINGS: Lungs/Pleura: Bilateral pulmonary opacities are slightly increased. No pleural effusion is seen. No pneumothorax is noted. Mediastinum: Within exam limitations, the cardiomediastinal contour is unchanged. Other: None. IMPRESSION: 1. Bilateral pulmonary opacities are slightly increased. RADIA
[2019-03-11] MEDS ORDERED: CLONAZEPAM 0.5 MG PO SCH (08:00)
[2019-03-11] MEDS ORDERED: HYDROXYZINE PAMOATE 50 MG PO SCH (08:00)
--- NOTE | 2019-03-11 08:07 | PROVIDER PROGRESS NOTE ---
Assessment/Plan - Problem List (1) Aspiration pneumonia Assessment/Plan: The repeat CXR shows worsening bilateral, basal consolidation. The sputum was a good sample and is growing GPC. She was started on empiric Unasyn for aspiration PNA, since the Hx of choking is so impressive. A Barium swallow and bedside clinical swallowing eval have been ordered as well as a dysphagia altered diet. Will add iv Zithromax for coverage of CAP bacteria. Will add Mucinex for her cough and for pulmonary toilet. (2) COPD exacerbation Assessment/Plan: She is on oral steroids, inhaled steroids and Duoneb nebulizer. She is getting tremulous; will change the Duoneb to Xopenex neb. (3) Microcytic anemia Assessment/Plan: Will obtain labs for Iron panel, B12, Folate and guiac stool. Replace if low. Monitor CBC daily. (4) DM type 2 (diabetes mellitus, type 2) Assessment/Plan: Continue with carb controlled diet, sliding scale insulin to cover fingerstick glucose levels (5) Bipolar affective disorder, depressed Qualifiers: Assessment/Plan: Continue her prehospital medications: She says her Amitriptyline dose is 100 mg, not 25 at at bedtime (6) Hx of falling Assessment/Plan: She has had trauma to ribs and spine because of previous falls. There was no history of this currently. Continue with her prehospital medications for any osteoporosis - Current Meds Current Meds: Current Medications Generic Name Dose Route Start Last Admin Trade Name Freq PRN Reason Stop Dose Admin Hydrocodone Bitart/Acetaminophen 1 tab 03/10/19 16:50 03/10/19 22:59 [place] 5/325 PO 1 tab Q4HR PRN Administration Pain 5 to 7 Albuterol/Ipratropium 3 ml 03/10/19 19:00 03/10/19 20:09 Duoneb INH 3 ml RTQID CALIXTO Administration Amitriptyline HCl 25 mg 03/10/19 21:51 03/10/19 22:58 Elavil PO 25 mg QPM PRN Administration Insomnia Budesonide 0.5 mg 03/10/19 19:00 03/10/19 20:09 Pulmicort INH 0.5 mg RTBID CALIXTO Administration Clonazepam 0.5 mg 03/10/19 21:04 03/10/19 22:13 Klonopin PO 0.5 mg 0800,2000 PRN Administration Anxiety Gabapentin 600 mg 03/10/19 21:00 03/10/19 22:11 Neurontin PO 600 mg 0800,1400,2000 CALIXTO Administration Ampicillin Sodium/Sulbactam 100 mls @ 200 mls/hr 03/11/19 00:00 03/11/19 07:10 Sodium 1.5 gm/ Sodium Chloride IV Infused Q6HR CALIXTO Infusion Insulin Aspart 1 - 9 unit 03/10/19 21:00 03/10/19 22:22 Novolog SUBQ 5 unit 0800,1200,1700,2100 CALIXTO Administration Protocol Metformin HCl 500 mg 03/10/19 21:00 03/10/19 22:16 Glucophage PO 500 mg 0800,1999 CALIXTO Administration Pantoprazole Sodium 40 mg 03/11/19 07:00 03/11/19 06:33 Protonix PO 40 mg QDAC CALIXTO Administration Sodium Chloride 10 ml 03/10/19 17:00 03/10/19 23:40 Normal Saline Flush 0.9% IVP 10 ml 0100,0900,1700 CALIXTO Administration Throat Lozenges 1 lozenge 03/10/19 20:17 03/11/19 05:13 Cepacol MM 1 lozenge Q2HR PRN Administration Throat pain - Lab Result Fish Bone Diagrams: 03/10/19 14:51 03/10/19 14:51 - Additional Planning My Orders: My Active Orders 03/10/19 16:50 Activity Orders [RC] Q2HR IO [RC] IOSHIFT Initiate Bowel Care Protocol [RC] .protocol Initiate Bronchodialator Rajat [RC] .PROTOCOL Initiate Line Care Protocol [RC] QSHIFT Initiate Lung Inflation Protoc [RC] .PROTOCOL Initiate Personal Care Protoco [RC] .protocol Initiate Secretion Clearance P [RC] .PROTOCOL Oxygen Therapy [RC] Routine Vital Signs [RC] 0800,1600,0000 Acetaminophen [Tylenol] 650 mg PO Q4HR PRN HYDROcod/ACETAM 5/325 [[place] 5/325] 1 tab PO Q4HR PRN Prochlorperazine Inj [Compazine Inj] 10 mg IVP Q6HR PRN Condition of Patient [OTHERS] Routine DVT Prophylaxis [OTHERS] Routine 03/10/19 16:53 IV Insert [RC] .ONCE Incentive Spirometry - RT [RC] .TID SCDs [RC] QSHIFT 03/10/19 16:54 Initiate Line Care Protocol [] QSHIFT 03/10/19 17:00 Sodium Chloride Flush 0.9% [Normal Saline Flush 0.9%] 10 ml IVP 0100,0900,1700 03/10/19 17:22 CULTURE, BLOOD #1 [] Stat 03/10/19 19:00 Budesonide [Pulmicort] 0.5 mg INH RTBID Ipratropium/Albuterol [Duoneb] 3 ml INH RTQ4H PRN Ipratropium/Albuterol [Duoneb] 3 ml INH RTQID 03/10/19 20:10 RT [Nebulizer/MDI Tx.] [] QID 03/10/19 20:17 Benzocaine/Menthol [Cepacol] 1 lozenge MM Q2HR PRN 03/11/19 06:30 CUL, RESPIRATORY [RM] Urgent 03/11/19 09:00 Polyethylene Glycol 3350 [Miralax] 17 gm PO DAILY Subjective - Subjective Patient Reports: Feeling Better, Shortness of Breath (Is "very SOB just walking to bathroom") Objective Vital Signs: Vital Signs - 24 hr 03/10/19 03/10/19 03/10/19 14:22 14:30 14:50 Temperature 37.4 C Heart Rate 87 88 87 Heart Rate [ Brachial] Respiratory 16 18 20 Rate Blood Pressure 128/86 H 127/67 Blood Pressure [Left Brachial artery] O2 Saturation 92 95 03/10/19 03/10/19 03/10/19 16:30 17:53 18:23 Temperature 37.4 C 37.3 C Heart Rate 89 87 Heart Rate [ 82 Brachial] Respiratory 24 18 22 Rate Blood Pressure 95/54 L Blood Pressure 131/67 H [Left Brachial artery] O2 Saturation 94 93 95 03/10/19 03/11/19 03/11/19 20:10 00:00 08:00 Temperature 36.8 C 37.2 C Heart Rate 81 Heart Rate [ 80 72 Brachial] Respiratory 18 20 14 Rate Blood Pressure Blood Pressure 124/54 L 121/60 [Left Brachial artery] O2 Saturation 94 98 Oxygen O2 Source [With Activity] Nasal cannula O2 Source Nasal cannula Oxygen Flow Rate 2 I&O (Last 24 Hrs): Intake and Output Totals x24h 03/09/19 03/10/19 03/11/19 23:59 23:59 23:59 Intake Total 992 200 Balance 992 200 General: Alert, Oriented x3 HEENT: Mucous membr. moist/pink Neck: Supple, No JVD Neuro: Non Focal Cardiovascular: Regular rate, No murmurs Respiratory: No respiratory distress, Other (Diminished at anterior bases) Abdomen: Soft Extremities: No edema - Results Results: Laboratory Results WBC 11.6 x10^3/uL (4.8-10.8) H 03/10/19 14:51 RBC 4.34 10^6/uL (4.20-5.40) 03/10/19 14:51 Hgb 9.4 g/dL (12.0-16.0) L 03/10/19 14:51 Hct 30.6 % (37.0-47.0) L 03/10/19 14:51 MCV 70.5 fL (81.0-99.0) L 03/10/19 14:51 MCH 21.6 pg (27.0-31.0) L 03/10/19 14:51 MCHC 30.6 g/dL (32.0-36.0) L 03/10/19 14:51 RDW 18.1 % (12.0-15.0) H 03/10/19 14:51 Plt Count 212 10^3/uL (130-450) 03/10/19 14:51 MPV 8.3 fL (7.9-10.8) 03/10/19 14:51 Neut # (Auto) 8.6 10^3/uL (1.5-6.6) H 03/10/19 14:51 Lymph # (Auto) 2.1 10^3/uL (1.5-3.5) 03/10/19 14:51 Pepin # (Auto) 0.6 10^3/uL (0.0-1.0) 03/10/19 14:51 Eos # (Auto) 0.2 10^3/uL (0.0-0.7) 03/10/19 14:51 Baso # (Auto) 0.2 10^3/uL (0.0-0.1) H 03/10/19 14:51 Absolute Nucleated RBC 0.00 x10^3/uL 03/10/19 14:51 Nucleated RBC % 0.0 /100WBC 03/10/19 14:51 Sodium 139 mmol/L (135-145) 03/10/19 14:51 Potassium 3.6 mmol/L (3.5-5.0) 03/10/19 14:51 Chloride 104 mmol/L (101-111) 03/10/19 14:51 Carbon Dioxide 23 mmol/L (21-32) 03/10/19 14:51 Anion Gap 12.0 (6-13) 03/10/19 14:51 BUN 6 mg/dL (6-20) 03/10/19 14:51 Creatinine 0.7 mg/dL (0.4-1.0) 03/10/19 14:51 Estimated GFR (MDRD) 86 (>89) L 03/10/19 14:51 Glucose 118 mg/dL (70-100) H 03/10/19 14:51 POC Whole Bld Glucose 110 mg/dL (70 - 100) H 03/11/19 07:50 Glycated Hemoglobin 6.6 % (4.6-6.2) H 03/11/19 04:48 Estim Average Glucose 143 (70-100) H 03/11/19 04:48 Calcium 8.7 mg/dL (8.5-10.3) 03/10/19 14:51 Total Bilirubin 0.4 mg/dL (0.2-1.0) 03/10/19 14:51 AST 24 IU/L (10-42) 03/10/19 14:51 ALT 22 IU/L (10-60) 03/10/19 14:51 Alkaline Phosphatase 124 IU/L (42-121) H 03/10/19 14:51 Troponin I < 0.04 ng/mL (<0.49) 03/10/19 14:51 B-Natriuretic Peptide 27 pg/mL (5-100) 03/10/19 14:51 Total Protein 7.1 g/dL (6.7-8.2) 03/10/19 14:51 Albumin 3.4 g/dL (3.2-5.5) 03/10/19 14:51 Globulin 3.7 g/dL (2.1-4.2) 03/10/19 14:51 Albumin/Globulin Ratio 0.9 (1.0-2.2) L 03/10/19 14:51 Lipase 29 U/L (22-51) 03/10/19 14:51 Urine Color YELLOW 03/10/19 15:18 Urine Clarity CLEAR (CLEAR) 03/10/19 15:18 Urine pH 6.5 PH (5.0-7.5) 03/10/19 15:18 Ur Specific [place] <=1.005 (1.002-1.030) 03/10/19 15:18 Urine Protein NEGATIVE mg/dL (NEGATIVE) 03/10/19 15:18 Urine Glucose (UA) NEGATIVE mg/dL (NEGATIVE) 03/10/19 15:18 Urine Ketones NEGATIVE mg/dL (NEGATIVE) 03/10/19 15:18 Urine Occult Blood NEGATIVE (NEGATIVE) 03/10/19 15:18 Urine Nitrite NEGATIVE (NEGATIVE) 03/10/19 15:18 Urine Bilirubin NEGATIVE (NEGATIVE) 03/10/19 15:18 Urine Urobilinogen 0.2 (NORMAL) E.U./dL (NORMAL) 03/10/19 15:18 Ur Leukocyte Esterase NEGATIVE (NEGATIVE) 03/10/19 15:18 Ur Microscopic Review NOT INDICATED 03/10/19 15:18 Urine Culture Comments NOT INDICATED 03/10/19 15:18 - Procedures Procedures: Procedures EXCISION OF SIGMOID COLON, ENDO (05/26/18) EXCISION OF STOMACH, ENDO, DIAGN (05/26/18) EXCISION OF STOMACH, PYLORUS, ENDO, DIAGN (05/26/18) INCIS W REM OF FORIEGN BODY OR DEV FROM SKIN & SUBCUT TISSUE (05/11/14) OP RED-INT FIX TIB/FIBUL (12/18/13) REMOV INT FIX-TIB/FIBULA (04/03/14) REPAIR LEFT NECK MUSCLE, OPEN APPROACH (01/10/16) TRANSFUSE NONAUT RED BLOOD CELLS IN PERIPH VEIN, PERC (01/10/16)
[2019-03-11 08:40] LABS: % IRON SATURATION 7 % (20-50); IRON 25 ug/dL (28-170); TOTAL IRON BINDING CAPACITY 372 ug/dL (250-450); TRANSFERRIN 266 mg/dL (192-382)
[2019-03-11 08:57] LABS: FOLATE 7.98 ng/mL (5.90 - >24.8)
[2019-03-11] MEDS ORDERED: AZITHROMYCIN INJ 500 MG in SODIUM CHLORIDE 0.9% 250 ML IV SCH ×2 (09:00→13:00)
[2019-03-11] MEDS ORDERED: DULoxetine 30 MG CAPSULE PO SCH (09:00)
[2019-03-11] MEDS ORDERED: cefTRIAXone 1 GM in SODIUM CHLORIDE 0.9% MINIBAG 100 ML IV SCH (09:00)
[2019-03-11] MEDS: DULoxetine 30 MG CAPSULE PO SCH (09:03)
[2019-03-11] MEDS: GABAPENTIN 300 MG CAPSULE PO SCH ×3 (09:03→20:03)
[2019-03-11] MEDS: ASPIRIN EC 81 MG TABLET PO SCH (09:03)
[2019-03-11] MEDS: metFORMIN 500 MG TABLET PO SCH ×2 (09:04→20:04)
[2019-03-11] MEDS: ENOXAPARIN 40 MG/0.4 ML SYRINGE SUBQ SCH (09:04)
[2019-03-11] MEDS: predniSONE 20 MG TABLET PO SCH (09:04)
[2019-03-11] MEDS: SACCHAROMYCES BOULARDII 250 MG CAPSULE PO SCH ×2 (09:04→17:16)
[2019-03-11] MEDS: POLYETHYLENE GLYCOL 3350 17 GM PACKET PO SCH (09:05)
[2019-03-11] MEDS: NICOTINE 14 MG PATCH TOP SCH (09:05)
[2019-03-11] MEDS: INSULIN ASPART 300 UNIT/3 ML PEN SUBQ SCH ×4 (09:06→21:23)
[2019-03-11] MEDS ORDERED: LEVALBUTEROL 1.25 MG/3 ML NEB INH ONE (09:08)
[2019-03-11] MEDS: ESTRADIOL 1 MG TABLET PO SCH (09:12)
[2019-03-11] MEDS: clonazePAM 0.5 MG TABLET PO PRN ×2 (09:12→21:34)
[2019-03-11] MEDS: buPROPion SR 100 MG TABLET PO SCH ×2 (09:13→21:17)
[2019-03-11] MEDS: BUDESONIDE 0.5 MG/2 ML NEB INH SCH ×2 (09:15→19:33)
[2019-03-11] MEDS: LEVALBUTEROL 1.25 MG/3 ML NEB INH SCH ×4 (09:15→19:34)
[2019-03-11] MEDS ORDERED: LEVALBUTEROL 1.25 MG/3 ML NEB INH PRN (09:18)
[2019-03-11] MEDS: SODIUM CHLORIDE FLUSH 0.9% 10 ML SYRINGE IVP SCH ×2 (09:20→21:27)
[2019-03-11] MEDS: guaiFENesin 600 MG TABLET PO SCH ×2 (10:09→21:18)
[2019-03-11] MEDS: IBUPROFEN 600 MG TABLET PO PRN (10:57)
[2019-03-11] MEDS: NYSTATIN POWDER 15 GM TOP SCH ×2 (13:54→21:29)
[2019-03-11] MEDS: AZITHROMYCIN INJ 500 MG in SODIUM CHLORIDE 0.9% 250 ML IV SCH (19:27)
[2019-03-11] MEDS ORDERED: PRAZOSIN 1 MG CAPSULE PO SCH (21:00)
[2019-03-11] MEDS: ATORVASTATIN 10 MG TABLET PO SCH (21:13)
[2019-03-11] MEDS: AMITRIPTYLINE 25 MG TABLET PO PRN (21:14)
[2019-03-12 05:33] LABS: BASOPHILS % (AUTO) 0.5 %; EOSINOPHILS # (AUTO) 0.2 10^3/uL (0.0-0.7); EOSINOPHILS % (AUTO) 1.6 %; HGB - HEMOGLOBIN 7.9 g/dL (12.0-16.0); LYMPHOCYTES # (AUTO) 2.8 10^3/uL (1.5-3.5); LYMPHOCYTES % (AUTO) 28.6 %; MEAN CORPUSCULAR HEMOGLOBIN 21.6 pg (27.0-31.0); MEAN CORPUSCULAR HGB CONC 30.5 g/dL (32.0-36.0); MEAN PLATELET VOLUME 8.2 fL (7.9-10.8); MONOCYTES # (AUTO) 0.5 10^3/uL (0.0-1.0); MONOCYTES % (AUTO) 5.2 %; NEUTROPHILS # (AUTO) 6.2 10^3/uL (1.5-6.6); NEUTROPHILS % (AUTO) 64.1 %; PLT - PLATELET COUNT 225 10^3/uL (130-450); RED BLOOD COUNT 3.65 10^6/uL (4.20-5.40); WHITE BLOOD COUNT 9.7 x10^3/uL (4.8-10.8)
[2019-03-12 05:38] LABS: CALCIUM 8.4 mg/dL (8.5-10.3); CREATININE 0.5 mg/dL (0.4-1.0)
[2019-03-12] MEDS: PANTOPRAZOLE 40 MG TABLET PO SCH (05:49)
[2019-03-12] MEDS: AMPICILLIN/SULBACTAM 1.5 GM in SODIUM CHLORIDE 0.9% MINIBAG 100 ML IV SCH ×5 (05:52→18:17)
[2019-03-12] MEDS: SODIUM CHLORIDE FLUSH 0.9% 10 ML SYRINGE IVP SCH ×3 (05:52→16:52)
[2019-03-12] MEDS: LEVALBUTEROL 1.25 MG/3 ML NEB INH SCH ×4 (07:30→19:34)
[2019-03-12] MEDS: BUDESONIDE 0.5 MG/2 ML NEB INH SCH ×2 (07:30→19:34)
[2019-03-12] MEDS: INSULIN ASPART 300 UNIT/3 ML PEN SUBQ SCH ×4 (08:01→20:38)
[2019-03-12] MEDS: ASPIRIN EC 81 MG TABLET PO SCH (08:32)
[2019-03-12] MEDS: SACCHAROMYCES BOULARDII 250 MG CAPSULE PO SCH ×2 (08:32→16:48)
[2019-03-12] MEDS: guaiFENesin 600 MG TABLET PO SCH ×2 (08:32→20:37)
[2019-03-12] MEDS: ESTRADIOL 1 MG TABLET PO SCH (08:32)
[2019-03-12] MEDS: DULoxetine 30 MG CAPSULE PO SCH (08:32)
[2019-03-12] MEDS: IBUPROFEN 600 MG TABLET PO PRN ×2 (08:32→14:00)
[2019-03-12] MEDS: clonazePAM 0.5 MG TABLET PO PRN (08:32)
[2019-03-12] MEDS: buPROPion SR 100 MG TABLET PO SCH ×2 (08:32→20:37)
[2019-03-12] MEDS: GABAPENTIN 300 MG CAPSULE PO SCH ×3 (08:34→19:51)
[2019-03-12] MEDS: predniSONE 20 MG TABLET PO SCH (08:34)
[2019-03-12] MEDS: NICOTINE 14 MG PATCH TOP SCH (08:34)
[2019-03-12] MEDS: POLYETHYLENE GLYCOL 3350 17 GM PACKET PO SCH (08:35)
[2019-03-12] MEDS: ENOXAPARIN 40 MG/0.4 ML SYRINGE SUBQ SCH (08:35)
[2019-03-12] MEDS: metFORMIN 500 MG TABLET PO SCH ×2 (09:15→19:51)
[2019-03-12] MEDS: NYSTATIN POWDER 15 GM TOP SCH ×2 (13:57→20:37)
[2019-03-12] MEDS: lamoTRIgine 100 MG TABLET PO SCH (14:00)
--- NOTE | 2019-03-12 14:14 | PROVIDER PROGRESS NOTE ---
Assessment/Plan - Problem List (1) Aspiration pneumonia Assessment/Plan: No barium swallow done yet by Diagnostic Imaging. Tomorrow the speech therapist is present to do clinical bedside swallowing eval. She remains in an altered, dysphagia diet. No fever, WBC improving, no sputum sent for cx. Sputum culture growing gram pos cocci. She remains on empiric iv Zithro and iv Unasyn. Will plan to transition to oral antibiotics tomorrow. Will evaluate exercise oximetry tomorrow for possible DCh tomorrow. (2) COPD exacerbation Assessment/Plan: Continue Mucinex, nebulizer treatments, p.o. Prednisone, inhaled steroids. Oxygen supplementation is currently on 26/04, usually at home she wears it at night only. Respiratory to check exercise oximetry tomorrow for possible discharge tomorrow. (3) Microcytic anemia Assessment/Plan: B12 and folate stores are adequate, iron stores are low. We will start oral iron replacement daily today. (4) DM type 2 (diabetes mellitus, type 2) Assessment/Plan: Glucose levels are running 150s to 220s, despite being on steroids for 2 days. Continue carb controlled diet, sliding scale insulin coverage and her Glucophage (5) Bipolar affective disorder, depressed Qualifiers: Assessment/Plan: She remains on all 3 of her psychiatric medications, as at home. (6) Tobacco abuse Assessment/Plan: Continue with nicotine patch which is suppressing her urges. - Current Meds Current Meds: Current Medications Generic Name Dose Route Start Last Admin Trade Name Freq PRN Reason Stop Dose Admin Hydrocodone Bitart/Acetaminophen 1 tab 03/10/19 16:50 03/10/19 22:59 [place] 5/325 PO 1 tab Q4HR PRN Administration Pain 5 to 7 Amitriptyline HCl 100 mg 03/11/19 16:46 03/11/19 21:14 Elavil PO 100 mg QPM PRN Administration Insomnia Aspirin 81 mg 03/11/19 08:00 03/12/19 08:32 Ecotrin PO 81 mg 0800 CALIXTO Administration Atorvastatin Calcium 10 mg 03/11/19 21:00 03/11/19 21:13 Lipitor PO 10 mg QPM CALIXTO Administration Budesonide 0.5 mg 03/10/19 19:00 03/12/19 07:30 Pulmicort INH 0.5 mg RTBID CAL[place]TO Administration Bupropion HCl 100 mg 03/11/19 09:00 03/12/19 08:32 Wellbutrin Sr PO 100 mg BID CALIXTO Administration Clonazepam 0.5 mg 03/10/19 21:04 03/12/19 08:32 Klonopin PO 0.5 mg PRN Administration Anxiety Duloxetine HCl 60 mg 03/11/19 09:00 03/12/19 08:32 Cymbalta PO 60 mg DAILY CALIXTO Administration Enoxaparin Sodium 40 mg 03/11/19 09:00 03/12/19 08:35 Lovenox SUBQ 40 mg DAILY CALIXTO Administration Estradiol 0.5 mg 03/11/19 09:00 03/12/19 08:32 Estrace PO 0.5 mg DAILY CALIXTO Administration Gabapentin 600 mg 03/10/19 21:00 03/12/19 14:00 Neurontin PO 600 mg 0800,1399,1999 CALIXTO Administration Guaifenesin 600 mg 03/11/19 10:00 03/12/19 08:32 Mucinex PO 600 mg BID CALIXTO Administration Ampicillin Sodium/Sulbactam 100 mls @ 200 mls/hr 03/11/19 00:00 03/12/19 13:11 Sodium 1.5 gm/ Sodium Chloride IV 200 mls/hr Q6HR CALIXTO Administration Azithromycin 500 mg/ Sodium 250 mls @ 250 mls/hr 03/11/19 19:00 03/11/19 20:30 Chloride IV Infused Q24H CALIXTO Infusion Ibuprofen 600 mg 03/10/19 22:54 03/12/19 14:00 Motrin PO 600 mg Q6HR PRN Administration PAIN Insulin Aspart 1 - 9 unit 03/10/19 21:00 03/12/19 13:14 Novolog SUBQ 1 unit 0800,1200,1700,2100 CALIXTO Administration Protocol Lamotrigine 200 mg 03/12/19 14:00 03/12/19 14:00 Lamictal PO 200 mg 1400 CALIXTO Administration Levalbuterol HCl 1.25 mg 03/11/19 11:00 03/12/19 11:30 Xopenex INH 1.25 mg RTQID CALIXTO Administration Metformin HCl 500 mg 03/10/19 21:00 03/12/19 09:15 Glucophage PO 500 mg CALIXTO Administration Nicotine 1 patch 03/11/19 09:00 03/12/19 08:34 Nicoderm TOP 1 patch DAILY CALIXTO Administration Nystatin 1 applic 03/11/19 13:00 03/12/19 13:57 Nystop TOP 1 applic BID CALIXTO Administration Pantoprazole Sodium 40 mg 03/11/19 07:00 03/12/19 05:49 Protonix PO 40 mg QDAC CALIXTO Administration Polyethylene Glycol 17 gm 03/11/19 09:00 03/12/19 08:35 Miralax PO 17 gm DAILY CALIXTO Administration Prednisone 20 mg 03/11/19 08:00 03/12/19 08:34 Deltasone PO 20 mg DAILYWM CALIXTO Administration Saccharomyces Boulardii 250 mg 03/11/19 08:00 03/12/19 08:32 Florastor PO 250 mg BIDWM [place] Administration Sodium Chloride 10 ml 03/10/19 17:00 03/12/19 05:52 Normal Saline Flush 0.9% IVP 10 ml 0100,0900,1700 CALIXTO Administration Throat Lozenges 1 lozenge 03/10/19 20:17 03/11/19 16:09 Cepacol MM 1 lozenge Q2HR PRN Administration Throat pain - Lab Result Fish Bone Diagrams: 03/12/19 05:02 03/12/19 05:02 - Additional Planning My Orders: My Active Orders 03/11/19 16:46 Amitriptyline [Elavil] 100 mg PO QPM PRN 03/11/19 19:00 Azithromycin Inj [Zithromax Inj] 500 mg Sodium Chloride 0.9% [Normal Saline 0.9%] 250 ml IV Q24H 03/12/19 14:00 lamoTRIgine [LaMICtal] 200 mg PO 1400 03/13/19 05:00 BMP - BASIC METABOLIC PANEL [CHEM] DAILYLAB CBC - COMP BLD CT W/AUTO DIFF [HEME] DAILYLAB Subjective - Subjective Patient Reports: Feeling Better, Other (Less SOB with walking. Got a coughing spell and bones hurt.) Objective Vital Signs: Vital Signs - 24 hr 03/11/19 03/11/19 03/11/19 16:45 17:00 19:34 Temperature 37.4 C Heart Rate 79 77 Heart Rate [ 93 Brachial] Respiratory 16 14 18 Rate Blood Pressure 125/53 L [Left Brachial artery] O2 Saturation 93 03/12/19 03/12/19 03/12/19 00:00 06:03 07:30 Temperature 36.9 C Heart Rate 79 Heart Rate [ 77 75 Brachial] Respiratory 18 18 16 Rate Blood Pressure 104/57 L 120/76 [Left Brachial artery] O2 Saturation 96 96 03/12/19 03/12/19 08:00 11:30 Temperature 37.2 C Heart Rate 80 Heart Rate [ 80 Brachial] Respiratory 14 18 Rate Blood Pressure 128/57 L [Left Brachial artery] O2 Saturation 95 Oxygen O2 Source [With Activity] Nasal cannula O2 Source Nasal cannula Oxygen Flow Rate 2 I&O (Last 24 Hrs): Intake and Output Totals x24h 03/10/19 03/11/19 03/12/19 23:59 23:59 23:59 Intake Total 992 1390 700 Balance 992 1390 700 General: Alert, Oriented x3 HEENT: Mucous membr. moist/pink Neck: Supple, No JVD Neuro: Other (Resting tremor of hands (getting a neb treatment)) Cardiovascular: Regular rate, No murmurs Respiratory: Chest non-tender, Breath sounds nml Abdomen: Soft Extremities: No edema - Results Results: Laboratory Results WBC 9.7 x10^3/uL (4.8-10.8) 03/12/19 05:02 RBC 3.65 10^6/uL (4.20-5.40) L 03/12/19 05:02 Hgb 7.9 g/dL (12.0-16.0) L 03/12/19 05:02 Hct 25.9 % (37.0-47.0) L 03/12/19 05:02 MCV 71.0 fL (81.0-99.0) L 03/12/19 05:02 MCH 21.6 pg (27.0-31.0) L 03/12/19 05:02 MCHC 30.5 g/dL (32.0-36.0) L 03/12/19 05:02 RDW 18.0 % (12.0-15.0) H 03/12/19 05:02 Plt Count 225 10^3/uL (130-450) 03/12/19 05:02 MPV 8.2 fL (7.9-10.8) 03/12/19 05:02 Neut # (Auto) 6.2 10^3/uL (1.5-6.6) 03/12/19 05:02 Lymph # (Auto) 2.8 10^3/uL (1.5-3.5) 03/12/19 05:02 [place] # (Auto) 0.5 10^3/uL (0.0-1.0) 03/12/19 05:02 Eos # (Auto) 0.2 10^3/uL (0.0-0.7) 03/12/19 05:02 Baso # (Auto) 0.0 10^3/uL (0.0-0.1) 03/12/19 05:02 Absolute Nucleated RBC 0.01 x10^3/uL 03/12/19 05:02 Nucleated RBC % 0.1 /100WBC 03/12/19 05:02 Sodium 143 mmol/L (135-145) 03/12/19 05:02 Potassium 4.0 mmol/L (3.5-5.0) 03/12/19 05:02 Chloride 109 mmol/L (101-111) 03/12/19 05:02 Carbon Dioxide 24 mmol/L (21-32) 03/12/19 05:02 Anion Gap 10.0 (6-13) 03/12/19 05:02 BUN 7 mg/dL (6-20) 03/12/19 05:02 Creatinine 0.5 mg/dL (0.4-1.0) 03/12/19 05:02 Estimated GFR (MDRD) 127 (>89) 03/12/19 05:02 Glucose 93 mg/dL (70-100) 03/12/19 05:02 POC Whole Bld Glucose 157 mg/dL (70 - 100) H 03/12/19 11:11 Glycated Hemoglobin 6.6 % (4.6-6.2) H 03/11/19 04:48 Estim Average Glucose 143 (70-100) H 03/11/19 04:48 Calcium 8.4 mg/dL (8.5-10.3) L 03/12/19 05:02 Iron 25 ug/dL (28-170) L 03/11/19 04:48 TIBC 372 ug/dL (250-450) 03/11/19 04:48 % Saturation 7 % (20-50) L 03/11/19 04:48 Transferrin 266 mg/dL (192-382) 03/11/19 04:48 Total Bilirubin 0.4 mg/dL (0.2-1.0) 03/10/19 14:51 AST 24 IU/L (10-42) 03/10/19 14:51 ALT 22 IU/L (10-60) 03/10/19 14:51 Alkaline Phosphatase 124 IU/L (42-121) H 03/10/19 14:51 Troponin I < 0.04 ng/mL (<0.49) 03/10/19 14:51 B-Natriuretic Peptide 27 pg/mL (5-100) 03/10/19 14:51 Total Protein 7.1 g/dL (6.7-8.2) 03/10/19 14:51 Albumin 3.4 g/dL (3.2-5.5) 03/10/19 14:51 Globulin 3.7 g/dL (2.1-4.2) 03/10/19 14:51 Albumin/Globulin Ratio 0.9 (1.0-2.2) L 03/10/19 14:51 Lipase 29 U/L (22-51) 03/10/19 14:51 Vitamin B12 191 pg/mL (180-914) 03/11/19 04:48 Folate 7.98 ng/mL (5.90 - >24.8) 03/11/19 04:48 Urine Color YELLOW 03/10/19 15:18 Urine Clarity CLEAR (CLEAR) 03/10/19 15:18 Urine pH 6.5 PH (5.0-7.5) 03/10/19 15:18 Ur Specific [place] <=1.005 (1.002-1.030) 03/10/19 15:18 Urine Protein NEGATIVE mg/dL (NEGATIVE) 03/10/19 15:18 Urine Glucose (UA) NEGATIVE mg/dL (NEGATIVE) 03/10/19 15:18 Urine Ketones NEGATIVE mg/dL (NEGATIVE) 03/10/19 15:18 Urine Occult Blood NEGATIVE (NEGATIVE) 03/10/19 15:18 Urine Nitrite NEGATIVE (NEGATIVE) 03/10/19 15:18 Urine Bilirubin NEGATIVE (NEGATIVE) 03/10/19 15:18 Urine Urobilinogen 0.2 (NORMAL) E.U./dL (NORMAL) 03/10/19 15:18 Ur Leukocyte Esterase NEGATIVE (NEGATIVE) 03/10/19 15:18 Ur Microscopic Review NOT INDICATED 03/10/19 15:18 Urine Culture Comments NOT INDICATED 03/10/19 15:18 - Procedures Procedures: Procedures EXCISION OF SIGMOID COLON, ENDO (05/26/18) EXCISION OF STOMACH, ENDO, DIAGN (05/26/18) EXCISION OF STOMACH, PYLORUS, ENDO, DIAGN (05/26/18) INCIS W REM OF FORIEGN BODY OR DEV FROM SKIN & SUBCUT TISSUE (05/11/14) OP RED-INT FIX TIB/FIBUL (12/18/13) REMOV INT FIX-TIB/FIBULA (04/03/14) REPAIR LEFT NECK MUSCLE, OPEN APPROACH (01/10/16) TRANSFUSE NONAUT RED BLOOD CELLS IN PERIPH VEIN, PERC (01/10/16)
[2019-03-12] MEDS: HYDROcod/ACETAM 5/325 MG TABLET PO PRN (14:42)
[2019-03-12] MEDS: BENZOCAINE/MENTHOL LOZENGE MM PRN (14:42)
[2019-03-12] MEDS: FERROUS GLUCONATE 324 MG TABLET PO SCH (16:47)
[2019-03-12] MEDS: AZITHROMYCIN INJ 500 MG in SODIUM CHLORIDE 0.9% 250 ML IV SCH (19:50)
[2019-03-12] MEDS: ATORVASTATIN 10 MG TABLET PO SCH (20:37)
[2019-03-12] MEDS ORDERED: PRAZOSIN 1 MG CAPSULE PO SCH (21:00)
[2019-03-12] MEDS: AMITRIPTYLINE 25 MG TABLET PO PRN (21:27)
[2019-03-13] MEDS: AMPICILLIN/SULBACTAM 1.5 GM in SODIUM CHLORIDE 0.9% MINIBAG 100 ML IV SCH ×3 (00:45→12:46)
[2019-03-13] MEDS: SODIUM CHLORIDE FLUSH 0.9% 10 ML SYRINGE IVP SCH ×3 (00:45→12:46)
[2019-03-13 05:11] LABS: BASOPHILS # (AUTO) 0.1 10^3/uL (0.0-0.1); BASOPHILS % (AUTO) 0.7 %; EOSINOPHILS # (AUTO) 0.2 10^3/uL (0.0-0.7); EOSINOPHILS % (AUTO) 2.3 %; HGB - HEMOGLOBIN 7.9 g/dL (12.0-16.0); LYMPHOCYTES # (AUTO) 3.2 10^3/uL (1.5-3.5); LYMPHOCYTES % (AUTO) 37.6 %; MEAN CORPUSCULAR HEMOGLOBIN 21.8 pg (27.0-31.0); MEAN CORPUSCULAR HGB CONC 30.6 g/dL (32.0-36.0); MEAN PLATELET VOLUME 7.9 fL (7.9-10.8); MONOCYTES # (AUTO) 0.5 10^3/uL (0.0-1.0); NEUTROPHILS # (AUTO) 4.5 10^3/uL (1.5-6.6); NEUTROPHILS % (AUTO) 53.4 %; PLT - PLATELET COUNT 228 10^3/uL (130-450); RED BLOOD COUNT 3.64 10^6/uL (4.20-5.40); RED CELL DISTRIBUTION WIDTH 18.5 % (12.0-15.0); WHITE BLOOD COUNT 8.5 x10^3/uL (4.8-10.8)
[2019-03-13 05:23] LABS: CALCIUM 8.4 mg/dL (8.5-10.3); CREATININE 0.6 mg/dL (0.4-1.0)
[2019-03-13] MEDS: PANTOPRAZOLE 40 MG TABLET PO SCH (06:00)
[2019-03-13] MEDS: LEVALBUTEROL 1.25 MG/3 ML NEB INH SCH (07:51)
[2019-03-13] MEDS: BUDESONIDE 0.5 MG/2 ML NEB INH SCH (07:51)
[2019-03-13] MEDS: buPROPion SR 100 MG TABLET PO SCH (08:46)
[2019-03-13] MEDS: ASPIRIN EC 81 MG TABLET PO SCH (08:46)
[2019-03-13] MEDS: DULoxetine 30 MG CAPSULE PO SCH (08:47)
[2019-03-13] MEDS: GABAPENTIN 300 MG CAPSULE PO SCH ×2 (08:48→13:31)
[2019-03-13] MEDS: SACCHAROMYCES BOULARDII 250 MG CAPSULE PO SCH (08:48)
[2019-03-13] MEDS: FERROUS GLUCONATE 324 MG TABLET PO SCH (08:49)
[2019-03-13] MEDS: predniSONE 20 MG TABLET PO SCH (08:49)
[2019-03-13] MEDS: guaiFENesin 600 MG TABLET PO SCH (08:50)
[2019-03-13] MEDS: ESTRADIOL 1 MG TABLET PO SCH (08:50)
[2019-03-13] MEDS: clonazePAM 0.5 MG TABLET PO PRN (08:52)
[2019-03-13] MEDS: NICOTINE 14 MG PATCH TOP SCH (08:52)
[2019-03-13] MEDS: ENOXAPARIN 40 MG/0.4 ML SYRINGE SUBQ SCH (08:53)
[2019-03-13] MEDS: POLYETHYLENE GLYCOL 3350 17 GM PACKET PO SCH (08:54)
[2019-03-13] MEDS: NYSTATIN POWDER 15 GM TOP SCH (08:55)
[2019-03-13] MEDS: INSULIN ASPART 300 UNIT/3 ML PEN SUBQ SCH ×2 (08:56→11:54)
[2019-03-13] MEDS: metFORMIN 500 MG TABLET PO SCH (09:45)
--- NOTE | 2019-03-13 12:57 | XRAY Report ---
Reason: Suspct stricture,eval for obstruction or achalasia Procedure Date: 03/13/2019 Accession Number: [id number] / [id number] Procedure: [place] - Esophogram CPT Code: FULL RESULT: EXAM: BARIUM ESOPHAGRAM EXAM DATE: 03/13/2019 12:39 PM. CLINICAL HISTORY: Dysphagia. COMPARISONS: None. TECHNIQUE: Routine single contrast esophagram. Fluoroscopy Time: 1 minute 4 seconds. Number of Images: 8. FINDINGS: Swallowing Mechanism: Normal deglutition. Esophageal Motility: Significant decrease in primary esophageal motility. Mucosa: Normal. No ulcerations or masses. Gastroesophageal Junction: Moderate sliding-type hiatus hernia without obstruction. Other: No evidence of Zenker's diverticulum. IMPRESSION: 1. Normal deglutition. 2. No evidence of esophageal stricture or esophagitis. 3. Decreased primary esophageal motility. 4. Moderate sliding-type has hernia. RADIA
[2019-03-13] MEDS: lamoTRIgine 100 MG TABLET PO SCH (13:31)
--- NOTE | 2019-03-13 13:58 | Discharge Plan ---
Discharge Plan Disposition: 01 Home, Self Care Condition: Stable Prescriptions: Amoxicillin/Potassium Clav [Amox Tr-K Clv 875-125 mg Tab] 1 each PO BID #6 tablet Ferrous Gluconate [Iron] 240 mg PO DAILY #30 tablet guaiFENesin [Mucinex] 600 mg PO BID #10 tablet predniSONE [Deltasone] 10 mg PO DAILYWM #7 tablet Saccharomyces Boulardii [Florastor] 250 mg PO BID #10 capsule Diet: Soft (Order a soft diet from [facility]) Activity Restrictions: Activity as Tolerated Shower Restrictions: No Weight Bearing: Full Weight Instruction Topics: COPD, Chronic Lung Disease Prevent Infec, Disease Chronic Lung Quit Smoking, Pneumonia Prevent, Falls Risks Prevent, Falls Prevent Move Safe Chair Bed, Dysphagia Aspiration Additional Instructions or Follow Up instructions: You were admitted to the hospital for treatment of a pneumonia that may have occurred from aspiration (food and acid coming up from your hiatal hernia and entering your lungs). This also worsened your COPD (emphysema). Make sure that you take your final meal 3 to 4 hours before going to bed, and consider sleeping with your head of bed elevated, so food and acid is less likely to come up the esophagus while you sleep. You are being sent home with a prescription for antibiotics, also Florastor for bowel health, Mucinex for the cough, and a steroid with a rapid tapering down schedule. In addition, your blood tests showed you to be very anemic and you are now on iron replacement pills daily. All of your new prescriptions were electronically sent to your [facility]. Resume all your other prehospital medications and now use the oxygen 26/04. Please see your PCP in the next 1 - 2 weeks for follow-up of the pneumonia, determination about further oxygen use during the day, and for follow-up regarding the possible aspiration from a hiatal hernia. If you have new or worsening symptoms, call your PCP or come to the ER. No Smoking: If you smoke, Please STOP! Call for help.
[2019-03-13 15:15] VITALS: BP 151/65
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
== END 2019-03-13 15:30 | disposition home or self-care (01) | DRG 177 ==
LOC: EDUNIT# → ED 14:19 → MS3 16:50
PROVIDERS: ADMIT Internal Medicine; ATTEND Internal Medicine
DX: J18.1 Lobar pneumonia, unspecified organism (principal); J69.0 Pneumonitis due to inhalation of food and vomit; E86.0 Dehydration; I10 Essential (primary) hypertension; E11.9 Type 2 diabetes mellitus without complications; J96.21 Acute and chronic respiratory failure with hypoxia; F17.200 Nicotine dependence, unspecified, uncomplicated; K44.9 Diaphragmatic hernia without obstruction or gangrene; J43.9 Emphysema, unspecified; E11.42 Type 2 diabetes mellitus with diabetic polyneuropathy; D50.9 Iron deficiency anemia, unspecified; F31.9 Bipolar disorder, unspecified; R13.10 Dysphagia, unspecified; I11.9 Hypertensive heart disease without heart failure; I27.20 Pulmonary hypertension, unspecified; E78.5 Hyperlipidemia, unspecified; G47.30 Sleep apnea, unspecified; F43.10 Post-traumatic stress disorder, unspecified; F41.9 Anxiety disorder, unspecified; Z62.810 Personal history of physical and sexual abuse in childhood; Z66 Do not resuscitate; Z91.81 History of falling; Z99.81 Dependence on supplemental oxygen; Z79.84 Long term (current) use of oral hypoglycemic drugs; Z79.899 Other long term (current) drug therapy; Z79.82 Long term (current) use of aspirin; Z72.0 Tobacco use; Z80.1 Family history of malignant neoplasm of trachea, bronchus and lung; Z79.51 Long term (current) use of inhaled steroids; Z91.19 Patient's noncompliance with other medical treatment and regimen
CPT/HCPCS: 36415; 71045; 74220; 80048; 80053; 81003; 82272; 82607; 82746; 83036; 83540; 83690; 83880; 84466; 84484; 85025; 87040; 87070; 87205; 92610; 93005; 94640; 96361; 96374; 99284; A9270; J1650; J7512; J7626; 81001; 87086

== ENCOUNTER 2019-04-17 10:30 | Emergency (ER) | payer MEDICARE, MEDICAID ==
--- NOTE | 2019-04-17 12:11 | XRAY Report ---
Reason: pain after fall Procedure Date: 04/17/2019 Accession Number: [id number] / [id number] Procedure: XR - Ribs w/PA Chest LT CPT Code: FULL RESULT: EXAM: LEFT RIB RADIOGRAPHY EXAM DATE: 04/17/2019 11:22 AM. CLINICAL HISTORY: Pain after fall. COMPARISON: CHEST 1 VIEW 03/11/2019 6:17 AM. TECHNIQUE: 1 view of the chest and 3 views of the ribs. FINDINGS: Bones: Radiopaque marker placed over the left lower chest. No rib fracture seen. Lungs: Linear mid and lower lung opacities, suspect subsegmental atelectasis or scarring. Mediastinum: Stable Other: Severe left glenohumeral osteoarthritis with suspected rotator cuff tear. IMPRESSION: No rib fracture seen RADIA
--- NOTE | 2019-04-17 13:17 | ED Physician Documentation ---
History of Present Illness - Stated complaint Stated Complaint: GLF - Chief complaint Chief Complaint: Ext Problem - History obtained from History obtained from: Patient - History of Present Illness Timing: How many days ago (4) Pain level max: 7 Pain level now: 6 - Additonal information Additional information: fell off toilet at home. States felt lightheaded when she stood up and fell over. No head injury. No LOC. States L side and back are hurting. Worse with movement. Better with rest. No vomiting. Took motrin and tylenol without relief. 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: Other : Incontinence, Renal insuffiency, Nocturia HEENT: Chronic vision loss Psych: Anxiety, Bipolar disorder, Post traumatic stress disorder, Claustrophobia, Other Musculoskeletal: Osteoarthritis, Fibromyalgia, Chronic back pain Derm: None - Past Surgical History Past Surgical History: Yes General: Gastric surgery Ortho: Spine surgery /WET END HELPER: section, Hysterectomy, Oophrectomy - Present Medications Home Medications: Ambulatory Orders Medication Instructions Recorded Confirmed Omeprazole 20 mg PO 0800,199905/03/13 03/10/19 Duloxetine HCl 120 mg PO 0800 01/10/16 03/10/19 Prazosin HCl [Minipress] 10 mg PO 199901/10/16 03/10/19 lamoTRIgine [LaMICtal] 200 mg PO 1400 01/10/16 03/10/19 Hydroxyzine Pamoate [Vistaril] 50 mg PO 0800,1399,199901/23/17 03/10/19 Simvastatin [Zocor] 20 mg PO 199901/23/17 03/10/19 Lisinopril 2.5 mg PO 0800 11/03/17 03/10/19 Metformin HCl 500 mg PO 0800,199911/03/17 03/10/19 Amitriptyline HCl 100 mg PO 199907/26/18 03/10/19 Estradiol 0.5 mg PO 0800 07/26/18 03/10/19 QUEtiapine [SEROquel] 25 mg PO 1400 PRN 07/26/18 03/10/19 Aspirin [Aspirin EC] 81 mg PO 0800 03/10/19 03/10/19 Clonazepam 0.5 mg PO 0800,199903/10/19 03/10/19 Furosemide 20 mg PO 0800 03/10/19 03/10/19 Gabapentin [Neurontin] 600 mg PO 0800,1400,199903/10/19 03/10/19 Ibuprofen [Ibu] 800 mg PO 0800 03/10/19 03/10/19 Potassium Chloride 10 meq PO 0800 03/10/19 03/10/19 buPROPion HCl [Bupropion HCl Sr] 100 mg PO 0800,1400,199903/10/19 03/10/19 Amoxicillin/Potassium Clav [Amox 1 each PO BID #6 tablet 03/13/19 Tr-K Clv 875-125 mg Tab] Ferrous Gluconate [Iron] 240 mg PO DAILY #30 tablet 03/13/19 Saccharomyces Boulardii [Florastor] 250 mg PO BID #10 capsule 03/13/19 guaiFENesin [Mucinex] 600 mg PO BID #10 tablet 03/13/19 predniSONE [Deltasone] 10 mg PO DAILYWM #7 tablet 03/13/19 Hydrocodone/Acetaminophen 1 - 2 each PO Q6H PRN #14 tablet 04/17/19 [Hydrocodon-Acetaminophen 5-325] - Allergies Allergies/Adverse Reactions: Allergies Allergy/AdvReac Type Severity Reaction Status Date / Time Sulfa (Sulfonamide Allergy Mild oral Verified 04/17/19 10:46 Antibiotics) blisters - Social History Does the pt smoke?: Yes Smoking Status: Current every day smoker Does the pt drink ETOH?: No Does the pt have substance abuse?: Yes Substance Use and Type: Marijuana - Immunizations Immunizations are current?: Yes Immunizations: TDAP current <10years - POLST Patient has POLST: No POLST Status: Full Code PD ED PE NORMAL - Vitals Vital signs reviewed: Yes - General General: Alert and oriented X 3, No acute distress - HEENT HEENT: Atraumatic, PERRL, Moist mucous membranes - Neck Neck: Supple, no meningeal sign, No bony TTP - Cardiac Cardiac: RRR - Respiratory Respiratory: No respiratory distress, Clear bilaterally, Other (TTP L lower ribs. no crepitus. no ecchymosis.) - Abdomen Abdomen: Soft, Non tender, Non distended - Back Back: No spinal TTP - Derm Derm: Warm and dry - Extremities Extremities: No edema - Neuro Neuro: Alert and oriented X 3, cafeteria associate 2-12 intact, No motor deficit, No sensory deficit, Normal speech Eye Opening: Spontaneous Motor: Obeys Commands Verbal: Oriented GCS Score: 15 - Psych Psych: Normal mood Results - Vitals Vitals: Vital Signs - 24 hr 04/17/19 04/17/19 10:43 13:34 Temperature 36.3 C L Heart Rate 91 80 Respiratory 18 18 Rate Blood Pressure 116/65 100/61 O2 Saturation 97 94 Oxygen O2 Source [] Nasal cannula O2 Source Room air - Rads (name of study) L rib xray Radiology: Prelim report reviewed, EMP read contemporaneously, See rad report ( No rib fracture seen ) PD MEDICAL DECISION MAKING - ED course Complexity details: reviewed results, re-evaluated patient, considered differential, d/w patient ED course: 59-year-old female with a rib contusion after a fall. No acute findings on x- ray. Will prescribe pain medication for home and follow-up closely with her doctor. Patient counseled regarding signs and symptoms for which I believe and urgent re-evaluation would be necessary. Patient with good understanding of and agreement to plan and is comfortable going home at this time This document was made in part using voice recognition software. While efforts are made to proofread this document, sound alike and grammatical errors may occur. Departure - Departure Disposition: 01 Home, Self Care Clinical Impression: Contusion of rib on left side Qualifiers: Encounter type: initial encounter Qualified Code(s): S20.212A - Contusion of left front wall of thorax, initial encounter Condition: Good Instructions: ED Contusion Rib Follow-Up: Jerry Beaulieu MD [Primary Care Provider] - Within 1 week Prescriptions: Hydrocodone/Acetaminophen [Hydrocodon-Acetaminophen 5-325] 1 - 2 each PO Q6H PRN #14 tablet PRN Reason: pain Comments: Use the medications as prescribed. Thankfully your x-ray does not show any fractures today. Return if you worsen. Follow-up with your doctor for further care. Do not drink alcohol or drive while on narcotic pain medicine. Note that many narcotic pain relievers also contain tylenol/acetaminophen. Please ensure that your total dose of acetaminophen from all sources does not exceed 3 grams (3000mg) per day. You may constipated on this medication, take a stool softener such as "Colace" twice a day while you are on it. Also recommend a [id number] laxative such as senna or MiraLAX any day that you do not have a bowel movement. If you received narcotic pain medication in the emergency department, do not drive or operate machinery for the next 24 hours. Discharge Date/Time: 04/17/19 13:49
[2019-04-17 13:35] VITALS: BP 100/61
== END 2019-04-17 13:49 | disposition home or self-care (01) ==
LOC: ED 10:30
DX: S20.212A Contusion of left front wall of thorax, initial encounter (principal); W18.11XA Fall from or off toilet without subsequent striking against object, initial encounter; Y93.E8 Activity, other personal hygiene; Y92.002 Bathroom of unspecified non-institutional (private) residence as the place of occurrence of the external cause; M19.012 Primary osteoarthritis, left shoulder; I10 Essential (primary) hypertension; E11.9 Type 2 diabetes mellitus without complications; Z79.84 Long term (current) use of oral hypoglycemic drugs; J43.9 Emphysema, unspecified; F17.200 Nicotine dependence, unspecified, uncomplicated; Z79.82 Long term (current) use of aspirin
CPT/HCPCS: 99284

== ENCOUNTER 2019-05-04 08:00 | Outpatient (CLI) | payer MEDICARE, MEDICAID | END 2019-05-04 23:59 | disposition home or self-care (01) | LOC: LAB.WCP 08:00 | PROVIDERS: ATTEND Family Medicine | DX: R30.0 Dysuria (principal) | CPT/HCPCS: 81002 ==

== ENCOUNTER 2019-06-22 11:26 | Outpatient (CLI) | payer MEDICARE, MEDICAID | END 2019-06-22 11:27 | disposition critical access hospital (66) | LOC: EMS 11:26 | PROVIDERS: ATTEND Surgery | DX: S11.91XA Laceration without foreign body of unspecified part of neck, initial encounter (principal); X78.1XXA Intentional self-harm by knife, initial encounter; Y92.009 Unspecified place in unspecified non-institutional (private) residence as the place of occurrence of the external cause | CPT/HCPCS: A0425; A0429 ==

== ENCOUNTER 2019-06-22 11:55 | Emergency (ER) | payer MEDICARE, MEDICAID ==
[2019-06-22 12:28] LABS: BASOPHILS # (AUTO) 0.1 10^3/uL (0.0-0.1); EOSINOPHILS # (AUTO) 0.3 10^3/uL (0.0-0.7); EOSINOPHILS % (AUTO) 4.5 %; HGB - HEMOGLOBIN 10.1 g/dL (12.0-16.0); LYMPHOCYTES # (AUTO) 1.9 10^3/uL (1.5-3.5); LYMPHOCYTES % (AUTO) 30.9 %; MEAN CORPUSCULAR HEMOGLOBIN 21.7 pg (27.0-31.0); MEAN CORPUSCULAR HGB CONC 29.7 g/dL (32.0-36.0); MEAN PLATELET VOLUME 9.8 fL (7.9-10.8); MONOCYTES # (AUTO) 0.4 10^3/uL (0.0-1.0); MONOCYTES % (AUTO) 6.7 %; NEUTROPHILS # (AUTO) 3.4 10^3/uL (1.5-6.6); NEUTROPHILS % (AUTO) 56.2 %; PLT - PLATELET COUNT 236 10^3/uL (130-450); RED BLOOD COUNT 4.66 10^6/uL (4.20-5.40); RED CELL DISTRIBUTION WIDTH 19.8 % (12.0-15.0)
[2019-06-22] MEDS ORDERED: TETANUS/DIPHTHERIA/PERTUSSIS 0.5 ML SYRINGE IM ONE (12:37)
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
[2019-06-22 12:50] LABS: ACETAMINOPHEN < 10 ug/mL (10-30); ALBUMIN/GLOBULIN RATIO 1.2 (1.0-2.2); ALKALINE PHOSPHATASE 115 IU/L (42-121); ALT ALANINE AMINOTRANSFERASE 23 IU/L (10-60); AST ASPARTATE AMINOTRANSFERASE 28 IU/L (10-42); BILIRUBIN,TOTAL 0.2 mg/dL (0.2-1.0); BUN - BLOOD UREA NITROGEN 7 mg/dL (6-20); CALCIUM 8.8 mg/dL (8.5-10.3); CARBON DIOXIDE - CO2 27 mmol/L (21-32); CHLORIDE 100 mmol/L (101-111); CREATININE 0.5 mg/dL (0.4-1.0); GFR - MDRD 127 (>89); GLUCOSE 99 mg/dL (70-100); LIPASE 26 U/L (22-51); SALICYLATE < 6.0 mg/dL; SODIUM 137 mmol/L (135-145); TOTAL PROTEIN 7.3 g/dL (6.7-8.2)
[2019-06-22 13:04] LABS: MUDS CUTOFF CONCENTRATIONS CUTOFF CONC BELOW:
[2019-06-22 13:10] LABS: BILIRUBIN,URINE NEGATIVE (NEGATIVE); GLUCOSE, URINE (UA) NEGATIVE (NEGATIVE); KETONES,URINE (UA) NEGATIVE (NEGATIVE); LEUKOCYTE ESTERASE, URINE NEGATIVE (NEGATIVE); NITRITE,URINE NEGATIVE (NEGATIVE); OCCULT BLOOD,URINE NEGATIVE (NEGATIVE); PROTEIN,URINE NEGATIVE (NEGATIVE); UROBILINOGEN,URINE 0.2 (NORMAL) E.U./dL (NORMAL)
[2019-06-22 13:11] LABS: CLARITY,URINE CLEAR (CLEAR)
[2019-06-22 13:17] LABS: AMPHETAMINE SCREEN,URINE NEGATIVE (NEGATIVE); BENZODIAZEPINES SCREEN, URINE NEGATIVE (NEGATIVE); COCAINE SCREEN URINE NEGATIVE (NEGATIVE); METHADONE SCREEN, URINE NEGATIVE (NEGATIVE); METHAMPHETAMINES SCREEN, URINE NEGATIVE (NEGATIVE); OPIATE SCREEN, URINE NEGATIVE (NEGATIVE); TRICYCLIC ANTIDEPRESSANT,URINE POSITIVE (NEGATIVE)
[2019-06-22 13:18] LABS: OXYCODONE SCREEN, URINE NEGATIVE (NEGATIVE); PROPOXYPHENE SCREEN, URINE NEGATIVE (NEGATIVE)
[2019-06-22] MEDS ORDERED: IBUPROFEN 800 MG TABLET PO STA (13:30)
[2019-06-22] MEDS ORDERED: BACITRACIN ZINC OINT 14 GM TOP ONE (14:21)
[2019-06-22] MEDS ORDERED: GABAPENTIN 100 MG CAPSULE PO STA (15:13)
[2019-06-22] MEDS ORDERED: NAPROXEN 250 MG TABLET PO STA (15:13)
[2019-06-22 15:50] VITALS: BP 132/82
== END 2019-06-22 15:48 | disposition home or self-care (01) ==
LOC: ED 11:55
DX: F32.9 Major depressive disorder, single episode, unspecified (principal); S10.11XA Abrasion of throat, initial encounter; S40.812A Abrasion of left upper arm, initial encounter; X78.1XXA Intentional self-harm by knife, initial encounter; Z23 Encounter for immunization; J43.9 Emphysema, unspecified; F17.200 Nicotine dependence, unspecified, uncomplicated; I10 Essential (primary) hypertension; E11.9 Type 2 diabetes mellitus without complications; Z79.84 Long term (current) use of oral hypoglycemic drugs; Z79.82 Long term (current) use of aspirin
CPT/HCPCS: 36415; 81003; 83690; 90471; 90715; 99282; 99284; A9270; 80053; 80306; 80307; 80320; 80329; 81001; 84443; 85025; 87086

== ENCOUNTER 2019-06-27 14:42 | Outpatient (CLI) | payer MEDICARE, MEDICAID | END 2019-06-27 14:43 | disposition critical access hospital (66) | LOC: EMS 14:42 | PROVIDERS: ATTEND Surgery | DX: R45.851 Suicidal ideations (principal) | CPT/HCPCS: A0425; A0429 ==

== ENCOUNTER 2019-06-27 15:09 | Emergency (ER) | payer MEDICARE, MEDICAID ==
--- NOTE | 2019-06-27 15:31 | ED Physician Documentation ---
History of Present Illness - Stated complaint Stated Complaint: SI - History obtained from History obtained from: Patient - History of Present Illness Timing: Last night (Seen here last week for self-inflicted wounds to the neck. At that time she said she was not suicidal. She admits that she lied at the time and is still suicidal and tried it again last night, has a wound that she says may be was around to the anterior neck.) Review of Systems Ten Systems: 10 systems reviewed and negative Constitutional: reports: Reviewed and negative Nose: reports: Reviewed and negative Respiratory: reports: Reviewed and negative PD PAST MEDICAL HISTORY - Past Medical History Cardiovascular: Hypertension, High cholesterol Respiratory: COPD, Emphysema, Shortness of breath, Sleep apnea, Other Neuro: None Endocrine/Autoimmune: Type 2 diabetes GI: GERD, Hiatal hernia [employer]: Other : Incontinence, Renal insuffiency, Nocturia HEENT: Chronic vision loss Psych: Anxiety, Bipolar disorder, Post traumatic stress disorder, Claustrophobia, Other Musculoskeletal: Osteoarthritis, Fibromyalgia, Chronic back pain Derm: None - Past Surgical History Past Surgical History: Yes General: Gastric surgery Ortho: Spine surgery /[employer]: section, Hysterectomy, Oophrectomy - Present Medications Home Medications: Ambulatory Orders Medication Instructions Recorded Confirmed Prazosin HCl [Minipress] 10 mg PO 199901/10/16 06/27/19 Amitriptyline HCl 100 mg PO 199907/26/18 06/27/19 Estradiol 0.5 mg PO 0800 07/26/18 06/27/19 Furosemide 20 mg PO 0800 03/10/19 06/27/19 Gabapentin [Neurontin] 600 mg PO 0800,1400,199903/10/19 06/27/19 Saccharomyces Boulardii [Florastor] 250 mg PO BID #10 capsule 03/13/19 06/27/19 raNITIdine [Zantac] 150 mg PO DAILY 06/27/19 06/27/19 - Allergies Allergies/Adverse Reactions: Allergies Allergy/AdvReac Type Severity Reaction Status Date / Time Sulfa (Sulfonamide Allergy Mild oral Verified 04/17/19 10:46 Antibiotics) blisters - Social History Does the pt smoke?: Yes Smoking Status: Current every day smoker Does the pt drink ETOH?: No Does the pt have substance abuse?: Yes - Immunizations Immunizations are current?: Yes Immunizations: TDAP current <10years - POLST Patient has POLST: No POLST Status: Full Code PD ED PE NORMAL - Vitals Vital signs reviewed: Yes - General General: Alert and oriented X 3, No acute distress - HEENT HEENT: PERRL, EOMI, Other (There are 2 previous neck/wounds were shallow and are healing okay. There is a new wound that is basically in the midline, may be just to the left of midline, low zone 3, definitely through the platysma this ti me. No bleeding. Her voice is normal. Swallowing she says is normal.) - Neck Neck: Supple, no meningeal sign, No bony TTP - Cardiac Cardiac: RRR, No murmur - Respiratory Respiratory: No respiratory distress, Clear bilaterally - Abdomen Abdomen: Non tender - Extremities Extremities: No deformity, No tenderness to palpate, Normal ROM s pain - Neuro Neuro: Alert and oriented X 3, No motor deficit, No sensory deficit, Normal speech - Psych Psych: Normal mood, Normal affect Results - Vitals Vitals: Vital Signs - 24 hr 06/27/19 06/27/19 15:12 19:51 Temperature 37.3 C Heart Rate 85 80 Respiratory 16 17 Rate Blood Pressure 154/82 H 115/67 O2 Saturation 96 95 Oxygen O2 Source [] Nasal cannula O2 Source Room air - Labs Labs: Laboratory Tests 06/27/19 06/27/19 06/27/19 15:29 15:46 15:46 WBC 8.9 RBC 4.30 Hgb 9.3 L Hct 31.3 L MCV 72.8 L MCH 21.6 L MCHC 29.7 L RDW 19.6 H Plt Count 235 MPV 10.0 Neut # (Auto) 6.2 Lymph # (Auto) 1.9 [place] # (Auto) 0.4 Eos # (Auto) 0.3 Baso # (Auto) 0.1 Absolute Nucleated RBC 0.00 Nucleated RBC % 0.0 Sodium 137 Potassium 3.4 L Chloride 102 Carbon Dioxide 25 Anion Gap 10.0 BUN 6 Creatinine 0.6 Estimated GFR (MDRD) 103 Glucose 112 H Calcium 8.8 Total Bilirubin 0.6 AST 23 ALT 19 Alkaline Phosphatase 106 Total Protein 7.2 Albumin 3.7 Globulin 3.5 Albumin/Globulin Ratio 1.1 Lipase 22 TSH Urine Color YELLOW Urine Clarity CLEAR Urine pH 6.5 Ur Specific [place] 1.010 Urine Protein NEGATIVE Urine Glucose (UA) NEGATIVE Urine Ketones 15 H Urine Occult Blood NEGATIVE Urine Nitrite NEGATIVE Urine Bilirubin NEGATIVE Urine Urobilinogen 0.2 (NORMAL) Ur Leukocyte Esterase NEGATIVE Ur Microscopic Review NOT INDICATED Urine Culture Comments NOT INDICATED Salicylates < 6.0 Urine Opiates Screen NEGATIVE Ur Oxycodone Screen NEGATIVE Urine Methadone Screen NEGATIVE Ur Propoxyphene Screen NEGATIVE Acetaminophen < 10 L Ur Barbiturates Screen POSITIVE H Ur Tricyclics Screen POSITIVE H Ur Phencyclidine Scrn NEGATIVE Ur Amphetamine Screen NEGATIVE U Methamphetamines Scrn NEGATIVE U Benzodiazepines Scrn NEGATIVE Urine Cocaine Screen NEGATIVE U Cannabinoids Screen NEGATIVE Ethyl Alcohol 10.7 06/27/19 15:46 WBC RBC Hgb Hct MCV MCH MCHC RDW Plt Count MPV Neut # (Auto) Lymph # (Auto) [place] # (Auto) Eos # (Auto) Baso # (Auto) Absolute Nucleated RBC Nucleated RBC % Sodium Potassium Chloride Carbon Dioxide Anion Gap BUN Creatinine Estimated GFR (MDRD) Glucose Calcium Total Bilirubin AST ALT Alkaline Phosphatase Total Protein Albumin Globulin Albumin/Globulin Ratio Lipase TSH 1.35 Urine Color Urine Clarity Urine pH Ur Specific [place] Urine Protein Urine Glucose (UA) Urine Ketones Urine Occult Blood Urine Nitrite Urine Bilirubin Urine Urobilinogen Ur Leukocyte Esterase Ur Microscopic Review Urine Culture Comments Salicylates Urine Opiates Screen Ur Oxycodone Screen Urine Methadone Screen Ur Propoxyphene Screen Acetaminophen Ur Barbiturates Screen Ur Tricyclics Screen Ur Phencyclidine Scrn Ur Amphetamine Screen U Methamphetamines Scrn U Benzodiazepines Scrn Urine Cocaine Screen U Cannabinoids Screen Ethyl Alcohol - Rads (name of study) CT Angio neck Radiology: EMP read contemporaneously (1. Zone II penetrating left neck injury. Fascial plane gas and inflammation is seen in the left submandibular fossa. This extends immediately anterior to the carotid sheath and origin of the ECA. However, no contrast extravasation is seen to suggest arterial injury. No arterial venous fistula is appreciated. ) PD MEDICAL DECISION MAKING - ED course ED course: 59-year-old woman presents after an apparent suicide attempt last night with laceration of the neck. Unlike last week this laceration that she sustained 15 hours ago was much deeper and therefore CT angiography was done. Thankfully she did not hit any serious structures. It is too old to suture and she will need to be allowed to heal by secondary intention with simple wound care and dressing was placed. She wanted to go home, but I discussed with her that at this point that was not an option and she would need to be admitted for psychiatric evaluation. Accepted by Dr. Chucky Ramirez to [facility]wood were completed. Departure - Departure Disposition: 65 Psych Hosp/Unit DC/Xfer Clinical Impression: Suicide attempt Depression Qualifiers: Depression Type: major depressive disorder Major depression recurrence: recurrent Active/Remission status: currently active Major depression episode severity: severe Psychotic features: without psychotic features Qualified Code(s): F33.2 - Major depressive disorder, recurrent severe without psychotic features Laceration of neck Qualifiers: Encounter type: initial encounter Qualified Code(s): S11.91XA - Laceration without foreign body of unspecified part of neck, initial encounter Condition: Serious
[2019-06-27 15:34] LABS: MUDS CUTOFF CONCENTRATIONS CUTOFF CONC BELOW:
[2019-06-27 15:36] LABS: BILIRUBIN,URINE NEGATIVE (NEGATIVE); GLUCOSE, URINE (UA) NEGATIVE (NEGATIVE); KETONES,URINE (UA) 15 mg/dL (NEGATIVE); LEUKOCYTE ESTERASE, URINE NEGATIVE (NEGATIVE); NITRITE,URINE NEGATIVE (NEGATIVE); OCCULT BLOOD,URINE NEGATIVE (NEGATIVE); PH,URINE 6.5 PH (5.0-7.5); PROTEIN,URINE NEGATIVE (NEGATIVE); UROBILINOGEN,URINE 0.2 (NORMAL) E.U./dL (NORMAL)
[2019-06-27] MEDS ORDERED: IOVERSOL 320 100 ML VIAL IVP ONE ×2 (15:36→16:36)
[2019-06-27 15:45] LABS: CLARITY,URINE CLEAR (CLEAR)
[2019-06-27 15:51] LABS: AMPHETAMINE SCREEN,URINE NEGATIVE (NEGATIVE); BENZODIAZEPINES SCREEN, URINE NEGATIVE (NEGATIVE); COCAINE SCREEN URINE NEGATIVE (NEGATIVE); METHADONE SCREEN, URINE NEGATIVE (NEGATIVE); METHAMPHETAMINES SCREEN, URINE NEGATIVE (NEGATIVE); OPIATE SCREEN, URINE NEGATIVE (NEGATIVE); OXYCODONE SCREEN, URINE NEGATIVE (NEGATIVE); PROPOXYPHENE SCREEN, URINE NEGATIVE (NEGATIVE); TRICYCLIC ANTIDEPRESSANT,URINE POSITIVE (NEGATIVE)
[2019-06-27 15:56] LABS: BASOPHILS # (AUTO) 0.1 10^3/uL (0.0-0.1); BASOPHILS % (AUTO) 0.6 %; EOSINOPHILS # (AUTO) 0.3 10^3/uL (0.0-0.7); EOSINOPHILS % (AUTO) 3.4 %; HGB - HEMOGLOBIN 9.3 g/dL (12.0-16.0); LYMPHOCYTES # (AUTO) 1.9 10^3/uL (1.5-3.5); LYMPHOCYTES % (AUTO) 21.6 %; MEAN CORPUSCULAR HEMOGLOBIN 21.6 pg (27.0-31.0); MEAN CORPUSCULAR HGB CONC 29.7 g/dL (32.0-36.0); MEAN CORPUSCULAR VOLUME 72.8 fL (81.0-99.0); MONOCYTES # (AUTO) 0.4 10^3/uL (0.0-1.0); MONOCYTES % (AUTO) 4.9 %; NEUTROPHILS # (AUTO) 6.2 10^3/uL (1.5-6.6); NEUTROPHILS % (AUTO) 69.1 %; PLT - PLATELET COUNT 235 10^3/uL (130-450); RED CELL DISTRIBUTION WIDTH 19.6 % (12.0-15.0); WHITE BLOOD COUNT 8.9 x10^3/uL (4.8-10.8)
[2019-06-27 16:11] LABS: ACETAMINOPHEN < 10 ug/mL (10-30); ALBUMIN 3.7 g/dL (3.2-5.5); ALBUMIN/GLOBULIN RATIO 1.1 (1.0-2.2); ALKALINE PHOSPHATASE 106 IU/L (42-121); ALT ALANINE AMINOTRANSFERASE 19 IU/L (10-60); AST ASPARTATE AMINOTRANSFERASE 23 IU/L (10-42); BILIRUBIN,TOTAL 0.6 mg/dL (0.2-1.0); BUN - BLOOD UREA NITROGEN 6 mg/dL (6-20); CALCIUM 8.8 mg/dL (8.5-10.3); CARBON DIOXIDE - CO2 25 mmol/L (21-32); CHLORIDE 102 mmol/L (101-111); CREATININE 0.6 mg/dL (0.4-1.0); GFR - MDRD 103 (>89); GLUCOSE 112 mg/dL (70-100); LIPASE 22 U/L (22-51); SALICYLATE < 6.0 mg/dL; SODIUM 137 mmol/L (135-145); TOTAL PROTEIN 7.2 g/dL (6.7-8.2)
--- NOTE | 2019-06-27 17:15 | CT Report ---
Reason: neck wound Procedure Date: 06/27/2019 Accession Number: [id number] / [id number] Procedure: CT - ANGIO NECK W CPT Code: FULL RESULT: EXAM: CT ANGIOGRAM NECK. EXAM DATE: 06/27/2019 04:34 PM. CLINICAL HISTORY: Neck wound. Right-sided neck wound. COMPARISON: NECK ANGIO 04/26/2015 4:21 PM. TECHNIQUE: Routine axial helical imaging was performed from the skull base through the aortic arch. Reconstructions: Routine multiplanar 3D MIP reconstructions. IV Contrast: OPTI 320 80 mL. Evaluation of arterial stenosis is based on a NASCET method of measurement. In accordance with CT protocol optimization, one or more of the following dose reduction techniques were utilized for this exam: automated exposure control, adjustment of mA and/or KV based on patient size, or use of iterative reconstructive technique. FINDINGS: The aortic arch and great vessels off the arch are unremarkable. Normal 3-vessel branching is seen. Right Carotid: The common carotid, internal carotid, and external carotid arteries are widely patent. No dissection, significant atherosclerotic plaque, or calcification identified. No contrast extravasation or AV fistula is seen. Left Carotid: The common carotid, internal carotid, and external carotid arteries are widely patent. No dissection, significant atherosclerotic plaque, or calcification identified. No contrast extravasation or AV fistula is seen. Vertebrals: The vertebral arteries are codominant. No significant stenosis. No vessel injury or contrast extravasation. No dissection. Intracranial Circulation: Normal. No stenoses or aneurysms of the visualized vessels. Other: Ill-defined 16 mm nodule is partially seen laterally in the left upper lung zone. Abnormal coarsened and groundglass interstitial prominence is seen throughout the visualized upper lung zones. Mild AP window and low paratracheal lymphadenopathy is once again identified. Zone 2 injury to the left neck is seen. Fascial plane gas is seen in the submandibular fossa to the left with surrounding fascial plane edema. Fascial plane edema is seen surrounding the left submandibular gland. Punctate foci of gas are noted along the deep margin of the left submandibular gland and adjacent superior left posterolateral strap muscles. This is anterior to the carotid bifurcation and origin of ECA. No extraluminal contrast extravasation or AV fistula is appreciated. Mild spondylosis is seen in the mid and lower cervical spine. No acute fracture is evident. The patient is noted to be edentulous. IMPRESSION: 1. Zone II penetrating left neck injury. Fascial plane gas and inflammation is seen in the left submandibular fossa. This extends immediately anterior to the carotid sheath and origin of the ECA. However, no contrast extravasation is seen to suggest arterial injury. No arterial venous fistula is appreciated. [facility] The call report notification system was initiated by Dr. Rob Culver at 05:04 PM on 06/27/2019. The above call report findings were discussed with Chris Badillo by Dr. Rob Culver at 05:07 PM on 06/27/2019.
[2019-06-27] MEDS ORDERED: NICOTINE 21 MG PATCH TOP STA (17:47)
[2019-06-27] MEDS ORDERED: GABAPENTIN 100 MG CAPSULE PO STA (19:42)
[2019-06-27 19:52] VITALS: BP 115/67
== END 2019-06-27 23:45 ==
LOC: EDUNIT# → ED 15:09
DX: S11.81XA Laceration without foreign body of other specified part of neck, initial encounter (principal); X78.1XXA Intentional self-harm by knife, initial encounter; F33.2 Major depressive disorder, recurrent severe without psychotic features; F43.10 Post-traumatic stress disorder, unspecified; I10 Essential (primary) hypertension; E11.9 Type 2 diabetes mellitus without complications; F17.200 Nicotine dependence, unspecified, uncomplicated
CPT/HCPCS: 36415; 70498; 81003; 83690; 99283; 99285; A9270; Q9967; 80053; 80306; 80307; 80320; 80329; 81001; 84443; 85025; 87086

== ENCOUNTER 2019-12-01 14:37 | Outpatient (CLI) | payer MEDICARE, MEDICAID | END 2019-12-01 23:59 | disposition short-term general hospital (02) | LOC: EMS 14:37 | PROVIDERS: ATTEND Surgery | DX: R05 Cough (principal); R09.89 Other specified symptoms and signs involving the circulatory and respiratory systems | CPT/HCPCS: A0425; A0427 ==

== ENCOUNTER 2020-03-22 19:03 | Outpatient (CLI) | payer MEDICARE, MEDICAID | END 2020-03-22 19:04 | disposition critical access hospital (66) | LOC: EMS 19:03 | PROVIDERS: ATTEND Surgery | DX: S51.812A Laceration without foreign body of left forearm, initial encounter (principal); S51.811A Laceration without foreign body of right forearm, initial encounter; S11.21XA Laceration without foreign body of pharynx and cervical esophagus, initial encounter; X78.8XXA Intentional self-harm by other sharp object, initial encounter; Y92.009 Unspecified place in unspecified non-institutional (private) residence as the place of occurrence of the external cause | CPT/HCPCS: A0425; A0429 ==

== ENCOUNTER 2020-03-22 19:25 | Emergency (ER) | payer MEDICARE, MEDICAID ==
[2020-03-22 20:00] LABS: BASOPHILS # (AUTO) 0.1 10^3/uL (0.0-0.1); BASOPHILS % (AUTO) 0.6 %; EOSINOPHILS # (AUTO) 0.4 10^3/uL (0.0-0.7); HGB - HEMOGLOBIN 12.1 g/dL (12.0-16.0); LYMPHOCYTES % (AUTO) 25.6 %; MEAN CORPUSCULAR HEMOGLOBIN 26.4 pg (27.0-31.0); MEAN CORPUSCULAR HGB CONC 32.9 g/dL (32.0-36.0); MEAN CORPUSCULAR VOLUME 80.2 fL (81.0-99.0); MEAN PLATELET VOLUME 9.6 fL (7.9-10.8); MONOCYTES # (AUTO) 0.8 10^3/uL (0.0-1.0); MONOCYTES % (AUTO) 6.5 %; NEUTROPHILS # (AUTO) 7.3 10^3/uL (1.5-6.6); NEUTROPHILS % (AUTO) 63.9 %; PLT - PLATELET COUNT 289 10^3/uL (130-450); RED BLOOD COUNT 4.59 10^6/uL (4.20-5.40); RED CELL DISTRIBUTION WIDTH 16.8 % (12.0-15.0); WHITE BLOOD COUNT 11.5 x10^3/uL (4.8-10.8)
[2020-03-22 20:15] LABS: MUDS CUTOFF CONCENTRATIONS CUTOFF CONC BELOW:
[2020-03-22 20:16] LABS: ACETAMINOPHEN < 10 ug/mL (10-30); ALBUMIN 3.3 g/dL (3.2-5.5); ALBUMIN/GLOBULIN RATIO 0.9 (1.0-2.2); ALKALINE PHOSPHATASE 81 IU/L (42-121); ALT ALANINE AMINOTRANSFERASE 15 IU/L (10-60); AST ASPARTATE AMINOTRANSFERASE 22 IU/L (10-42); BILIRUBIN,TOTAL 0.3 mg/dL (0.2-1.0); BUN - BLOOD UREA NITROGEN < 5 mg/dL (6-20); CALCIUM 8.3 mg/dL (8.5-10.3); CARBON DIOXIDE - CO2 22 mmol/L (21-32); CHLORIDE 96 mmol/L (101-111); CREATININE 0.3 mg/dL (0.4-1.0); GLUCOSE 109 mg/dL (70-100); LIPASE 47 U/L (22-51); SALICYLATE < 6.0 mg/dL; SODIUM 131 mmol/L (135-145); TOTAL PROTEIN 6.9 g/dL (6.7-8.2)
[2020-03-22 20:20] LABS: BILIRUBIN,URINE NEGATIVE (NEGATIVE); GLUCOSE, URINE (UA) NEGATIVE (NEGATIVE); KETONES,URINE (UA) NEGATIVE (NEGATIVE); LEUKOCYTE ESTERASE, URINE NEGATIVE (NEGATIVE); NITRITE,URINE POSITIVE (NEGATIVE); OCCULT BLOOD,URINE NEGATIVE (NEGATIVE); PH,URINE 5.5 PH (5.0-7.5); PROTEIN,URINE NEGATIVE (NEGATIVE); UROBILINOGEN,URINE 0.2 (NORMAL) E.U./dL (NORMAL)
[2020-03-22 20:25] LABS: CLARITY,URINE CLEAR (CLEAR)
[2020-03-22 20:30] LABS: AMPHETAMINE SCREEN,URINE NEGATIVE (NEGATIVE); BENZODIAZEPINES SCREEN, URINE NEGATIVE (NEGATIVE); COCAINE SCREEN URINE NEGATIVE (NEGATIVE); METHADONE SCREEN, URINE NEGATIVE (NEGATIVE); METHAMPHETAMINES SCREEN, URINE NEGATIVE (NEGATIVE); OPIATE SCREEN, URINE NEGATIVE (NEGATIVE); OXYCODONE SCREEN, URINE NEGATIVE (NEGATIVE); PROPOXYPHENE SCREEN, URINE NEGATIVE (NEGATIVE); TRICYCLIC ANTIDEPRESSANT,URINE POSITIVE (NEGATIVE)
[2020-03-22 20:31] LABS: BACTERIA,URINE Many /HPF (None Seen); RBC,URINE 0-5 /HPF (0-5); SQUAMOUS EPITHELIAL CELL,UR FEW Squamous (<= Few)
--- NOTE | 2020-03-22 21:02 | ED Physician Documentation ---
PD HPI MHE - Stated complaint Stated Complaint: SI - Chief complaint Chief Complaint: MHE - History obtained from History obtained from: Patient - History of Present Illness Primary symptom: Self harm - cut Timing - onset: Today Pain level max: 0 Pain level now: 0 Contributing factors: Sig other (boyfriend broke up with her today.), Substance abuse - ETOH Similar symptoms before: Diagnosis (depression, SI) Recently seen: Not recently seen - Additional information Additional information: 60-year-old female presents to the emergency department stating that her boyfriend broke up with her today. She sustained a laceration to the bilateral antecubital fossa. Not over any vasculature. She did these with an X-Acto knife. Also has a laceration to the right side of her neck. She states that she does not feel that she needs to go on to the hospital at this time. She lives alone with her dog. Review of Systems Ten Systems: 10 systems reviewed and negative Constitutional: denies: Fever, Chills Ears: denies: Ear pain Nose: denies: Rhinorrhea / runny nose, Congestion Respiratory: denies: Cough GI: denies: Abdominal Pain, Nausea, Vomiting, Diarrhea Skin: denies: Rash Musculoskeletal: denies: Neck pain, Back pain Neurologic: denies: Focal weakness, Numbness, Headache Psychiatric: reports: Depressed, Suicidal. 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: Other : Incontinence, Renal insuffiency, Nocturia HEENT: Chronic vision loss Psych: Anxiety, Bipolar disorder, Post traumatic stress disorder, Claustrophobia, Other Musculoskeletal: Osteoarthritis, Fibromyalgia, Chronic back pain Derm: None - Past Surgical History Past Surgical History: Yes General: Gastric surgery Ortho: 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, Hysterectomy, Oophrectomy - Present Medications Home Medications: Ambulatory Orders Medication Instructions Recorded Confirmed Prazosin HCl [Minipress] 10 mg PO 199901/10/16 06/27/19 Amitriptyline HCl 100 mg PO 199907/26/18 06/27/19 estradioL [Estradiol] 0.[place] 79907/26/18 06/27/19 Furosemide 20 mg PO 0800 03/10/19 06/27/19 Gabapentin [Neurontin] 600 mg PO 0800,1400,2000 03/10/19 06/27/19 Saccharomyces Boulardii [Florastor] 250 mg PO BID #10 capsule 03/13/19 06/27/19 raNITIdine [Zantac] 150 mg PO DAILY 06/27/19 06/27/19 - Allergies Allergies/Adverse Reactions: Allergies Allergy/AdvReac Type Severity Reaction Status Date / Time Sulfa (Sulfonamide Allergy Mild oral Verified 03/22/20 19:46 Antibiotics) blisters - Social History Does the pt smoke?: Yes Smoking Status: Current every day smoker Does the pt drink ETOH?: No Does the pt have substance abuse?: Yes - Immunizations Immunizations are current?: Yes Immunizations: TDAP current <10years - POLST Patient has POLST: No POLST Status: Full Code PD ED PE NORMAL - Vitals Vital signs reviewed: Yes - General General: Alert and oriented X 3, No acute distress, Well developed/nourished - HEENT HEENT: PERRL, Moist mucous membranes - Neck Neck: Supple, no meningeal sign - Cardiac Cardiac: RRR, Strong equal pulses - Respiratory Respiratory: No respiratory distress, Clear bilaterally - Abdomen Abdomen: Soft, Non tender, Non distended - Back Back: No spinal TTP - Derm Derm: Warm and dry - Extremities Extremities: No edema, Other (2 lacerations, 1 to each of the antecubital fossa, the first is approximately 1.5 cm in length, the other is approximately the same length. These are both subcutaneous. No vascular injury. She also has a small 1 or laceration, subcutaneous to the right side of the neck. No active bleeding.) - Neuro Neuro: Alert and oriented X 3 - Psych Psych: Normal mood, Normal affect Results - Vitals Vitals: Vital Signs - 24 hr 03/22/20 03/22/20 19:46 19:49 Temperature 36.8 C Heart Rate 95 90 Respiratory 16 16 Rate Blood Pressure 122/71 132/69 H O2 Saturation 99 99 Oxygen O2 Source [With Activity] Nasal cannula O2 Source Room air - Labs Labs: Laboratory Tests 03/22/20 03/22/20 03/22/20 19:43 19:54 19:54 WBC 11.5 H RBC 4.59 Hgb 12.1 Hct 36.8 L MCV 80.2 L MCH 26.4 L MCHC 32.9 RDW 16.8 H Plt Count 289 MPV 9.6 Neut # (Auto) 7.3 H Lymph # (Auto) 3.0 [place] # (Auto) 0.8 Eos # (Auto) 0.4 Baso # (Auto) 0.1 Absolute Nucleated RBC 0.00 Nucleated RBC % 0.0 Sodium 131 L Potassium 3.1 L Chloride 96 L Carbon Dioxide 22 Anion Gap 13.0 BUN < 5 L Creatinine 0.3 L Estimated GFR (MDRD) 228 Glucose 109 H Calcium 8.3 L Total Bilirubin 0.3 AST 22 ALT 15 Alkaline Phosphatase 81 Total Protein 6.9 Albumin 3.3 Globulin 3.6 Albumin/Globulin Ratio 0.9 L Lipase 47 TSH Urine Color YELLOW Urine Clarity CLEAR Urine pH 5.5 Ur Specific [place] <=1.005 Urine Protein NEGATIVE Urine Glucose (UA) NEGATIVE Urine Ketones NEGATIVE Urine Occult Blood NEGATIVE Urine Nitrite POSITIVE H Urine Bilirubin NEGATIVE Urine Urobilinogen 0.2 (NORMAL) Ur Leukocyte Esterase NEGATIVE Urine RBC 0-5 Urine WBC 4-5 Ur Squamous Epith Cells FEW Squamous Urine Bacteria Many H Ur Microscopic Review INDICATED Urine Culture Comments INDICATED Salicylates < 6.0 Urine Opiates Screen NEGATIVE Ur Oxycodone Screen NEGATIVE Urine Methadone Screen NEGATIVE Ur Propoxyphene Screen NEGATIVE Acetaminophen < 10 L Ur Barbiturates Screen POSITIVE H Ur Tricyclics Screen POSITIVE H Ur Phencyclidine Scrn NEGATIVE Ur Amphetamine Screen NEGATIVE U Methamphetamines Scrn NEGATIVE U Benzodiazepines Scrn NEGATIVE Urine Cocaine Screen NEGATIVE U Cannabinoids Screen NEGATIVE Ethyl Alcohol 103.1 03/22/20 19:54 WBC RBC Hgb Hct MCV MCH MCHC RDW Plt Count MPV Neut # (Auto) Lymph # (Auto) [place] # (Auto) Eos # (Auto) Baso # (Auto) Absolute Nucleated RBC Nucleated RBC % Sodium Potassium Chloride Carbon Dioxide Anion Gap BUN Creatinine Estimated GFR (MDRD) Glucose Calcium Total Bilirubin AST ALT Alkaline Phosphatase Total Protein Albumin Globulin Albumin/Globulin Ratio Lipase TSH 3.92 Urine Color Urine Clarity Urine pH Ur Specific [place] Urine Protein Urine Glucose (UA) Urine Ketones Urine Occult Blood Urine Nitrite Urine Bilirubin Urine Urobilinogen Ur Leukocyte Esterase Urine RBC Urine WBC Ur Squamous Epith Cells Urine Bacteria Ur Microscopic Review Urine Culture Comments Salicylates Urine Opiates Screen Ur Oxycodone Screen Urine Methadone Screen Ur Propoxyphene Screen Acetaminophen Ur Barbiturates Screen Ur Tricyclics Screen Ur Phencyclidine Scrn Ur Amphetamine Screen U Methamphetamines Scrn U Benzodiazepines Scrn Urine Cocaine Screen U Cannabinoids Screen Ethyl Alcohol PD MEDICAL DECISION MAKING - ED course Complexity details: reviewed results, re-evaluated patient, considered differential, d/w patient ED course: Patient with a suicide attempt tonight. She did not injure any major vasculature. Patient is medically clear for psychiatric care. She will be involuntary. See Dr. Pendleton's note for wound closure. She states that her tetanus is up-to-date. Patient does not want to go to the hospital and does not want to have any inpatient psychiatric care. This document was made in part using voice recognition software. While efforts are made to proofread this document, sound alike and grammatical errors may occur. Departure - Departure Clinical Impression: Suicide attempt, Multiple lacerations Depression Qualifiers: Depression Type: unspecified Qualified Code(s): F32.9 - Major depressive disorder, single episode, unspecified Condition: Stable
[2020-03-22] MEDS ORDERED: LIDOCAINE-EPINEPH-TETRACAINE 3 ML SYRINGE TOP STA (21:22)
[2020-03-22] MEDS ORDERED: LIDOCAINE 1%-EPI 1:100000 20 ML MDV SUBQ STA (22:21)
--- NOTE | 2020-03-22 23:15 | ED Physician Documentation ---
History of Present Illness - Stated complaint Stated Complaint: SI - Chief complaint Chief Complaint: MHE - History obtained from History obtained from: Patient ([facility] and physical for further details. Patient reports tonight that she had been drinking alcohol and her boyfriend broke up with her that she then took a razor blade and a switch box installer knife and cu t both), Other (Of her antecubital fossa is as well as the right side of her neck with a switch box installer. She reports that longstanding history of depression with previous suicide attempts by cutting her neck and also wanting to drink herself to .) Review of Systems Constitutional: reports: Reviewed and negative Eyes: reports: Reviewed and negative Ears: reports: Reviewed and negative Nose: reports: Reviewed and negative Throat: reports: Reviewed and negative Cardiac: reports: Reviewed and negative Respiratory: reports: Reviewed and negative GI: reports: Reviewed and negative : reports: Reviewed and negative Skin: reports: Laceration (s) Musculoskeletal: reports: Reviewed and negative Neurologic: reports: Reviewed and negative Psychiatric: reports: Depressed, Other (Alcohol abuse) Endocrine: reports: Reviewed and negative Immunocompromised: reports: Reviewed and negative PD PAST MEDICAL HISTORY - Past Medical History Cardiovascular: Hypertension, High cholesterol Respiratory: COPD, Emphysema, Shortness of breath, Sleep apnea, Other Neuro: None Endocrine/Autoimmune: Type 2 diabetes GI: GERD, Hiatal hernia 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: Other : Incontinence, Renal insuffiency, Nocturia HEENT: Chronic vision loss Psych: Anxiety, Bipolar disorder, Post traumatic stress disorder, Claustrophobia, Other Musculoskeletal: Osteoarthritis, Fibromyalgia, Chronic back pain Derm: None - Past Surgical History Past Surgical History: Yes General: Gastric surgery Ortho: Spine surgery /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: section, Hysterectomy, Oophrectomy - Present Medications Home Medications: Ambulatory Orders Medication Instructions Recorded Confirmed Prazosin HCl [Minipress] 10 mg PO 199901/10/16 06/27/19 Amitriptyline HCl 100 mg PO 199907/26/18 06/27/19 estradioL [Estradiol] 0.5 mg PO 0800 07/26/18 06/27/19 Furosemide 20 mg PO 0800 03/10/19 06/27/19 Gabapentin [Neurontin] 600 mg PO 0800,1400,199903/10/19 06/27/19 Saccharomyces Boulardii [Florastor] 250 mg PO BID #10 capsule 03/13/19 06/27/19 raNITIdine [Zantac] 150 mg PO DAILY 06/27/19 06/27/19 Cephalexin [Keflex] 500 mg PO BID 5 Days #10 capsule 03/23/20 - Allergies Allergies/Adverse Reactions: Allergies Allergy/AdvReac Type Severity Reaction Status Date / Time Sulfa (Sulfonamide Allergy Mild oral Verified 03/22/20 19:46 Antibiotics) blisters - Social History Does the pt smoke?: Yes Smoking Status: Current every day smoker Does the pt drink ETOH?: No Does the pt have substance abuse?: Yes - Immunizations Immunizations are current?: Yes Immunizations: TDAP current <10years - POLST Patient has POLST: No POLST Status: Full Code PD ED PE NORMAL - Vitals Vital signs reviewed: Yes - General General: Alert and oriented X 3, No acute distress - HEENT HEENT: PERRL, Other (2 cm laceration on the right anterior neck) - Neck Neck: Supple, no meningeal sign - Cardiac Cardiac: RRR, No murmur - Respiratory Respiratory: Clear bilaterally - Abdomen Abdomen: Normal bowel sounds, Soft, Non tender, Non distended - Derm Derm: Warm and dry, Other (Bilateral antecubital fossa 1 cm lacerations. 2 cm laceration to the right anterior neck) - Extremities Extremities: No deformity, Other (Bilateral antecubital fossa 1 cm lacerations. 2 cm laceration to the right anterior neck) - Neuro Neuro: Alert and oriented X 3 - Psych Psych: Normal mood, Normal affect Results - Vitals Vitals: Vital Signs - 24 hr 03/22/20 03/22/20 03/23/20 19:46 19:49 00:09 Temperature 36.8 C 37.3 C Heart Rate 95 90 88 Respiratory 16 16 16 Rate Blood Pressure 122/71 132/69 H 110/57 L O2 Saturation 99 99 93 03/23/20 06:15 Temperature 37.2 C Heart Rate 74 Respiratory 16 Rate Blood Pressure 123/67 O2 Saturation 99 Oxygen O2 Source [] Nasal cannula O2 Source Room air - Labs Labs: Laboratory Tests 03/22/20 03/22/20 03/22/20 19:43 19:54 19:54 WBC 11.5 H RBC 4.59 Hgb 12.1 Hct 36.8 L MCV 80.2 L MCH 26.4 L MCHC 32.9 RDW 16.8 H Plt Count 289 MPV 9.6 Neut # (Auto) 7.3 H Lymph # (Auto) 3.0 [place] # (Auto) 0.8 Eos # (Auto) 0.4 Baso # (Auto) 0.1 Absolute Nucleated RBC 0.00 Nucleated RBC % 0.0 Sodium 131 L Potassium 3.1 L Chloride 96 L Carbon Dioxide 22 Anion Gap 13.0 BUN < 5 L Creatinine 0.3 L Estimated GFR (MDRD) 228 Glucose 109 H Calcium 8.3 L Total Bilirubin 0.3 AST 22 ALT 15 Alkaline Phosphatase 81 Total Protein 6.9 Albumin 3.3 Globulin 3.6 Albumin/Globulin Ratio 0.9 L Lipase 47 TSH Urine Color YELLOW Urine Clarity CLEAR Urine pH 5.5 Ur Specific [place] <=1.005 Urine Protein NEGATIVE Urine Glucose (UA) NEGATIVE Urine Ketones NEGATIVE Urine Occult Blood NEGATIVE Urine Nitrite POSITIVE H Urine Bilirubin NEGATIVE Urine Urobilinogen 0.2 (NORMAL) Ur Leukocyte Esterase NEGATIVE Urine RBC 0-5 Urine WBC 4-5 Ur Squamous Epith Cells FEW Squamous Urine Bacteria Many H Ur Microscopic Review INDICATED Urine Culture Comments INDICATED Salicylates < 6.0 Urine Opiates Screen NEGATIVE Ur Oxycodone Screen NEGATIVE Urine Methadone Screen NEGATIVE Ur Propoxyphene Screen NEGATIVE Acetaminophen < 10 L Ur Barbiturates Screen POSITIVE H Ur Tricyclics Screen POSITIVE H Ur Phencyclidine Scrn NEGATIVE Ur Amphetamine Screen NEGATIVE U Methamphetamines Scrn NEGATIVE U Benzodiazepines Scrn NEGATIVE Urine Cocaine Screen NEGATIVE U Cannabinoids Screen NEGATIVE Ethyl Alcohol 103.1 03/22/20 03/22/20 19:54 23:45 WBC RBC Hgb Hct MCV MCH MCHC RDW Plt Count MPV Neut # (Auto) Lymph # (Auto) [place] # (Auto) Eos # (Auto) Baso # (Auto) Absolute Nucleated RBC Nucleated RBC % Sodium Potassium Chloride Carbon Dioxide Anion Gap BUN Creatinine Estimated GFR (MDRD) Glucose Calcium Total Bilirubin AST ALT Alkaline Phosphatase Total Protein Albumin Globulin Albumin/Globulin Ratio Lipase TSH 3.92 Urine Color Urine Clarity Urine pH Ur Specific [place] Urine Protein Urine Glucose (UA) Urine Ketones Urine Occult Blood Urine Nitrite Urine Bilirubin Urine Urobilinogen Ur Leukocyte Esterase Urine RBC Urine WBC Ur Squamous Epith Cells Urine Bacteria Ur Microscopic Review Urine Culture Comments Salicylates Urine Opiates Screen Ur Oxycodone Screen Urine Methadone Screen Ur Propoxyphene Screen Acetaminophen Ur Barbiturates Screen Ur Tricyclics Screen Ur Phencyclidine Scrn Ur Amphetamine Screen U Methamphetamines Scrn U Benzodiazepines Scrn Urine Cocaine Screen U Cannabinoids Screen Ethyl Alcohol < 5.0 Procedures - Laceration (location) Upper extremity left Anterior Length in cm: 1.5 Wound type: Linear Neurovascular status: Sensory intact, Motor intact, Vascular intact Anesthesia: Lidocaine 1% with epi, Volume - enter cc (1) Wound Preparation: Irrigated copiously NS, Other (No foreign bodies identified) Skin layer closure: Nylon, Size #-0 - enter number (4), Sutures - enter # (3) Other: Patient tolerated well, No complications, Neurovascular intact, Dressing applied, Tetanus UTD Complexity: Simple Upper extremity right Anterior Length in cm: 1.5 Wound type: Linear Neurovascular status: Sensory intact, Motor intact, Vascular intact Tendon involvement: Tendon intact Anesthesia: Lidocaine 1% with epi, Volume - enter cc (1) Wound Preparation: Irrigated copiously NS, Wound explored, Other (No foreign bodies identified) Skin layer closure: Nylon, Size #-0 - enter number (4), Sutures - enter # (3) Other: Tetanus UTD Complexity: Simple Neck right Lateral Length in cm: 3 Wound type: Linear Neurovascular status: Sensory intact, Motor intact, Vascular intact Tendon involvement: Tendon intact Anesthesia: Lidocaine 1% with epi, Volume - enter cc (2) Wound Preparation: Irrigated copiously NS, Wound explored, Other (No foreign bodies identified) Skin layer closure: Nylon, Size #-0 - enter number (4), Sutures - enter # (3) Other: Tetanus UTD Complexity: Simple PD MEDICAL DECISION MAKING - ED course Complexity details: reviewed old records, reviewed results, re-evaluated patient (ua is + for nitrite and many bacteria will treat for uti with keflex. patient accepted at [facility]. patient is involuntary), considered differential, d/w patient, other (Patient signed out to me at shift change by Dr. Dallas. Lacerations repaired by myself. Patient will be evaluated by the designated mental health provider.) - Consults Consults: Discussed case with (04:00 DMHP. Will detain and admit to psych.) Departure - Departure Disposition: 65 Psych Hosp/Unit DC/Xfer Clinical Impression: Suicide attempt, Multiple lacerations Depression Qualifiers: Depression Type: unspecified Qualified Code(s): F32.9 - Major depressive disorder, single episode, unspecified UTI (urinary tract infection) Qualifiers: Urinary tract infection type: site unspecified Hematuria presence: without hematuria Qualified Code(s): N39.0 - Urinary tract infection, site not specified Condition: Stable Instructions: ED Laceration All, ED UTI Cystitis Female, ED Alcohol Abuse Follow-Up: Jerry Beaulieu MD [Primary Care Provider] - Prescriptions: Cephalexin [Keflex] 500 mg PO BID 5 Days #10 capsule
[2020-03-23] MEDS ORDERED: cephALEXin 250 MG CAPSULE PO STA (00:08)
[2020-03-23] MEDS ORDERED: ACETAMINOPHEN 325 MG TABLET PO STA (01:16)
[2020-03-23] MEDS ORDERED: BACITRACIN ZINC OINT 1 PACKET TOP STA (01:16)
[2020-03-23 06:28] VITALS: BP 123/67
[2020-03-23] MEDS ORDERED: LORazepam 0.5 MG TABLET PO STA (09:55)
== END 2020-03-23 10:55 ==
LOC: EDUNIT# → ED 19:25
DX: S51.812A Laceration without foreign body of left forearm, initial encounter (principal); S51.811A Laceration without foreign body of right forearm, initial encounter; S11.81XA Laceration without foreign body of other specified part of neck, initial encounter; X78.1XXA Intentional self-harm by knife, initial encounter; F32.9 Major depressive disorder, single episode, unspecified; N39.0 Urinary tract infection, site not specified; F10.10 Alcohol abuse, uncomplicated; I48.92 Unspecified atrial flutter; I44.30 Unspecified atrioventricular block; I10 Essential (primary) hypertension; E11.9 Type 2 diabetes mellitus without complications; F17.200 Nicotine dependence, unspecified, uncomplicated
CPT/HCPCS: 12002; 36415; 80053; 81001; 83690; 84443; 85025; 87077; 87086; 87181; 93005; 99283; 99284; A9270; 80306; 80307; 80320; 80329; 81003

== ENCOUNTER 2020-04-19 08:00 | Outpatient (CLI) | payer MEDICARE, MEDICAID | END 2020-04-19 08:01 | disposition home or self-care (01) | LOC: LAB.WCP 08:00 | PROVIDERS: ATTEND Family Medicine | DX: R35.0 Frequency of micturition (principal) | CPT/HCPCS: 87086; 87181 ==

== ENCOUNTER 2020-06-18 11:19 | Outpatient (CLI) | payer MEDICARE, MEDICAID | END 2020-06-18 11:20 | disposition short-term general hospital (02) | LOC: EMS 11:19 | PROVIDERS: ATTEND Surgery | DX: R06.00 Dyspnea, unspecified (principal); R50.9 Fever, unspecified; R07.1 Chest pain on breathing | CPT/HCPCS: A0425; A0429 ==

== ENCOUNTER 2020-10-02 08:00 | Outpatient (CLI) | payer MEDICARE, MEDICAID | END 2020-10-02 08:01 | disposition home or self-care (01) | LOC: LAB.R 08:00 | PROVIDERS: ATTEND Family Medicine | DX: N39.0 Urinary tract infection, site not specified (principal) | CPT/HCPCS: 87077; 87086; 87181 ==

== ENCOUNTER 2020-10-09 21:28 | Outpatient (CLI) | payer MEDICARE, MEDICAID | END 2020-10-09 21:29 | disposition home or self-care (01) | LOC: COV 21:28 | PROVIDERS: ATTEND Family Medicine | DX: R50.9 Fever, unspecified (principal); R05 Cough; R06.02 Shortness of breath; M79.10 Myalgia, unspecified site; R53.83 Other fatigue; R07.0 Pain in throat; J34.89 Other specified disorders of nose and nasal sinuses; R11.0 Nausea; Z20.822 Contact with and (suspected) exposure to COVID-19 ==

== ENCOUNTER 2021-06-04 15:28 | Outpatient (CLI) | payer MEDICARE ==
--- NOTE | 2021-06-04 16:31 | CT Report ---
PROCEDURE: HEAD WO INDICATIONS: CONCUSSION WITH LOC TECHNIQUE: Noncontrast 4.5 mm thick angled axial sections acquired from the foramen magnum to the vertex. For r adiation dose reduction, the following was used: automated exposure control, adjustment of mA and/or kV according to patient size. COMPARISON: 07/04/2016. Correlation is also made with prior brain MRI, 03/10/2018 FINDINGS: Image quality: There is streak artifact seen through the skull base. CSF spaces: Basal cisterns are patent. No extra-axial fluid collections. Ventricles are normal in size and shape. Brain: No midline shift. No intracranial masses or hemorrhage. Benoit-white matter interface is norm al. Skull and face: Calvarium and visualized facial bones are intact, without suspicious lesions. Sinuses: Visualized sinuses and mastoids are clear. IMPRESSION: No intracranial hemorrhage is seen. No significant intracranial abnormality is seen. No displaced calvarial fracture is seen. Note: Niki Calloway was not available to discuss this case at the time of this dictation. A HIPAA-com pliant voicemail was left on the phone of Niki Calloway ([phone]) at 3:27 PM [place] time on 2020. Reviewed by: Alexy Salazar MD on 06/04/2021 3:29 PM GAYATRI Approved by: Alexy Salazar MD on 06/04/2021 3:29 PM AKRUPINDER Station ID: [id number]
== END 2021-06-04 15:29 | disposition home or self-care (01) ==
LOC: DI 15:28
PROVIDERS: ATTEND Family Medicine
DX: S06.0X1A Concussion with loss of consciousness of 30 minutes or less, initial encounter (principal)

== ENCOUNTER 2021-06-26 10:46 | Outpatient (CLI) | payer MEDICARE | END 2021-06-26 23:59 | disposition home or self-care (01) | LOC: LAB.WCP 10:46 | PROVIDERS: ATTEND Family Medicine | DX: R05 Cough (principal); Z20.822 Contact with and (suspected) exposure to COVID-19 ==

== ENCOUNTER 2021-07-08 22:21 | Outpatient (CLI) | payer MEDICARE | END 2021-07-08 22:22 | disposition critical access hospital (66) | LOC: EMS 22:21 | DX: S09.90XA Unspecified injury of head, initial encounter (principal); W18.30XA Fall on same level, unspecified, initial encounter; Y92.009 Unspecified place in unspecified non-institutional (private) residence as the place of occurrence of the external cause | CPT/HCPCS: A0425; A0427 ==

== ENCOUNTER 2021-07-08 22:39 | Emergency (ER) | payer MEDICARE ==
--- NOTE | 2021-07-08 23:32 | CT Report ---
PROCEDURE: CERVICAL SPINE WO INDICATIONS: fall/injury TECHNIQUE: Noncontrast 3 mm thick sections acquired from the skull base to the T4 level. Sagittal and coronal r eformats were then constructed. For radiation dose reduction, the following was used: automated exp osure control, adjustment of mA and/or kV according to patient size. COMPARISON: None. FINDINGS: Image quality: Excellent. Bones: No fractures or dislocations. Visualized superior ribs are intact. Mild to moderate cervica l spondylitic change. Soft tissues: Prevertebral soft tissues are normal in thickness. No paravertebral hematomas. No ap ical pneumothoraces. Biapical groundglass opacities. IMPRESSION: 1. No evidence acute cervical fracture or dislocation. 2. Cervical spondylitic change. 3. Patchy biapical groundglass opacities, but uncertain etiology. Reviewed by: Larry Murphy MD on 07/08/2021 11:31 PM PDT Approved by: Larry Murphy MD on 07/08/2021 11:31 PM PDT Station ID: [id number]
--- NOTE | 2021-07-08 23:34 | CT Report ---
PROCEDURE: HEAD WO INDICATIONS: fall/injury TECHNIQUE: Noncontrast 4.5 mm thick angled axial sections acquired from the foramen magnum to the vertex. For r adiation dose reduction, the following was used: automated exposure control, adjustment of mA and/or kV according to patient size. COMPARISON: None. FINDINGS: Image quality: Excellent. CSF spaces: Basal cisterns are patent. No extra-axial fluid collections. Ventricles are normal in size and shape. Brain: No midline shift. No intracranial masses or hemorrhage. Benoit-white matter interface is norm al. Skull and face: Calvarium and visualized facial bones are intact, without suspicious lesions. Sinuses: Visualized sinuses and mastoids are clear. IMPRESSION: No evidence acute stroke, hemorrhage, or mass. Reviewed by: Larry Murphy MD on 07/08/2021 11:33 PM PDT Approved by: Larry Murphy MD on 07/08/2021 11:33 PM PDT Station ID: [id number]
[2021-07-09] MEDS ORDERED: BUFFERED LIDOCAINE 10 ML SYRINGE IU ONE (00:06)
--- NOTE | 2021-07-09 00:28 | ED Physician Documentation ---
PD HPI HEAD INJURY - Stated complaint Stated Complaint: GLF/ HEAD INJ - Chief complaint Chief Complaint: Trauma Hd/Nk - History obtained from History obtained from: Patient, EMS - Additional information Additional information: Patient comes emergency department chief complaint of losing her balance and falling backwards against her dresser. She states she hit her head on the corner of the dresser and has a wound that bled quite a bit. She denies any other complaints at this time. Patient does admit to drinking alcohol tonight. She denies losing consciousness. No neck pain. No back or hip pain. No rib pain. No difficulty breathing. No abdominal pain or chest pain. No other complaints at this time. Review of Systems Ten Systems: 10 systems reviewed and negative Constitutional: reports: Reviewed and negative Eyes: reports: Reviewed and negative Ears: reports: Reviewed and negative Nose: reports: Reviewed and negative Throat: reports: Reviewed and negative Cardiac: reports: Reviewed and negative Respiratory: reports: Reviewed and negative GI: reports: Reviewed and negative : reports: Reviewed and negative Skin: reports: Laceration (s) Musculoskeletal: reports: Reviewed and negative Neurologic: reports: Head injury. 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: Other : Incontinence, Renal insuffiency, Nocturia HEENT: Chronic vision loss Psych: Anxiety, Bipolar disorder, Post traumatic stress disorder, Claustrophobia, Other Musculoskeletal: Osteoarthritis, Fibromyalgia, Chronic back pain Derm: None - Past Surgical History Past Surgical History: Yes General: Gastric surgery Ortho: 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 surgery /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: section, Hysterectomy, Oophrectomy - Present Medications Home Medications: Ambulatory Orders Medication Instructions Recorded Confirmed Prazosin HCl [Minipress] 10 mg PO 199901/10/16 06/27/19 Amitriptyline HCl 100 mg PO 199907/26/18 06/27/19 estradioL [Estradiol] 0.5 mg PO 0800 07/26/18 06/27/19 Furosemide 20 mg PO 0800 03/10/19 06/27/19 Gabapentin [Neurontin] 600 mg PO 0800,1400,199903/10/19 06/27/19 Saccharomyces Boulardii [Florastor] 250 mg PO BID #10 capsule 03/13/19 06/27/19 raNITIdine [Zantac] 150 mg PO DAILY 06/27/19 06/27/19 cephALEXin [Keflex] 500 mg PO BID 5 Days #10 capsule 03/23/20 - Allergies Allergies/Adverse Reactions: Allergies Allergy/AdvReac Type Severity Reaction Status Date / Time Sulfa (Sulfonamide Allergy Mild oral Verified 07/08/21 22:45 Antibiotics) blisters - Social History Does the pt smoke?: Yes Smoking Status: Current every day smoker Does the pt drink ETOH?: No Does the pt have substance abuse?: Yes - Immunizations Immunizations are current?: Yes Immunizations: TDAP current <10years - POLST Patient has POLST: No POLST Status: Full Code PD ED PE NORMAL - Vitals Vital signs reviewed: Yes - General General: Alert and oriented X 3, No acute distress - HEENT HEENT: PERRL, EOMI, Moist mucous membranes, Other (No facial trauma. Patient has a 3.5 cm laceration of her left occipital scalp. No bony deformity. Bleeding controlled, and the large amount of clot is noted in the patient's hair.) - Neck Neck: Supple, no meningeal sign - Cardiac Cardiac: RRR, No murmur - Respiratory Respiratory: Clear bilaterally - Abdomen Abdomen: Normal bowel sounds, Soft, Non tender, Non distended - Derm Derm: Warm and dry - Extremities Extremities: No deformity - Neuro Neuro: Alert and oriented X 3 - Psych Psych: Normal mood, Normal affect Results - Vitals Vitals: Vital Signs - 24 hr 07/08/21 07/08/21 07/08/21 22:45 22:50 23:38 Temperature 36.8 C 36.8 C Heart Rate 90 90 89 Respiratory 20 20 14 Rate Blood Pressure 115/83 H 115/83 H 103/59 L O2 Saturation 92 92 93 07/09/21 00:59 Temperature 36.7 C Heart Rate 72 Respiratory 18 Rate Blood Pressure 110/61 O2 Saturation 95 Oxygen O2 Source [With Activity] Nasal cannula O2 Source Nasal cannula - Rads (name of study) CT head Radiology: Final report received, EMP read indepedently, See rad report (neg) Procedures - Laceration (location) scalp Length in cm: 3.5 Wound type: Linear Neurovascular status: Sensory intact, Motor intact, Vascular intact Anesthesia: Lidocaine 1%, With bicarb Wound preparation: Hibiclens, Irrigated copiously NS, Wound explored, To the base Skin layer closure: [place], Sutures - enter # (7 luz) Other: Patient tolerated well, No complications, Neurovascular intact, Dressing applied, Tetanus UTD PD MEDICAL DECISION MAKING - ED course Complexity details: reviewed results, re-evaluated patient, considered differential, d/w patient ED course: Patient was worked up with CT scan of the head, which was negative. Her wound was repaired as above. The patient was alert and coherent, and was able to stand and ambulate without difficulty. [place] she was stable for discharge home. We have discussed timeline for staple removal, as well as usual indications for return. Departure - Departure Disposition: 01 Home, Self Care Clinical Impression: Closed head injury Qualifiers: Encounter type: initial encounter Qualified Code(s): S09.90XA - Unspecified injury of head, initial encounter Occipital scalp laceration Qualifiers: Encounter type: initial encounter Qualified Code(s): S01.01XA - Laceration without foreign body of scalp, initial encounter Condition: Stable Instructions: ED Head Injury Closed, ED Laceration Scalp Stitch Or Stap Comments: The CT scans of your head and neck look good. The laceration on your scalp has been fixed with 7 luz. This should be taken out in about 10 days. You will need to be seen in your primary doctor's office or the walk-in clinic to have this done. If you cannot be seen in any those places, you may return to the emergency department for wound recheck and staple removal in 10 days. If you develop any redness or swelling spreading progressively away from the wound, or if your wound splits open and drains pus, then please have it rechecked. Discharge Date/Time: 07/09/21 00:59
[2021-07-09 01:01] VITALS: BP 110/61
== END 2021-07-09 00:59 | disposition home or self-care (01) ==
LOC: EDUNIT# → ED 22:39
DX: S01.01XA Laceration without foreign body of scalp, initial encounter (principal); W01.190A Fall on same level from slipping, tripping and stumbling with subsequent striking against furniture, initial encounter; I10 Essential (primary) hypertension; E11.9 Type 2 diabetes mellitus without complications; F17.200 Nicotine dependence, unspecified, uncomplicated
CPT/HCPCS: 12002; 99282; 99284

== ENCOUNTER 2022-01-26 08:00 | Outpatient (CLI) | payer MEDICARE | END 2022-01-26 23:59 | disposition home or self-care (01) | LOC: LAB.N 08:00 | PROVIDERS: ATTEND Family Medicine | DX: J44.9 Chronic obstructive pulmonary disease, unspecified (principal); Z20.822 Contact with and (suspected) exposure to COVID-19 ==

== ENCOUNTER 2022-01-28 13:16 | Outpatient (CLI) | payer MEDICARE | END 2022-01-28 13:17 | disposition left against medical advice (07) | LOC: EMS 13:16 | DX: R79.89 Other specified abnormal findings of blood chemistry (principal) ==

== ENCOUNTER 2023-03-02 10:18 | Outpatient (CLI) | payer MEDICARE, MEDICAID ==
--- NOTE | 2023-03-03 10:03 | Ultrasound Report ---
LIMITED ULTRASOUND OF RIGHT BREAST: 03/02/2023 CLINICAL: Nipple discharge, right breast, not bloody. Comparison is made to exams dated: 11/13/2015 mammogram and 03/02/2023 mammogram - [facility]. Color flow ultrasound of the right breast 12 o'clock, and retroareolar regions was performed. Benoit s ravinder images of the real-time examination were reviewed. No significant abnormalities were seen sonographically in the right breast. IMPRESSION: NEGATIVE There is no sonographic evidence of malignancy. No mass, cyst, or dilated ducts. Patient describes green and white nipple discharge. Exam findings were conveyed to the patient. Patient is advised to monitor for significant change. Cli nical follow-up as needed. A 1 year screening mammogram is recommended. This exam was interpreted at Station ID: [id number]. Electronically Signed By: Bakari Cunningham M.D. slc/:03/02/2023 11:21:04 Ultrasound BI-RADS: 1 Negative BI-RADS CATEGORY: (1) - 1 Mammogram [id number] 1 year screening LATERALITY: (B)
--- NOTE | 2023-03-03 10:03 | Mammography Report ---
BILATERAL DIGITAL DIAGNOSTIC MAMMOGRAM 3D/2D: 03/02/2023 CLINICAL: Palpable right breast lump. Due for bilateral. Comparison is made to exams dated: 11/13/2015 mammogram and 02/21/2008 mammogram - [facility]. There are scattered areas of fibroglandular density in both breasts (category b / 25%-50% glandular t issue). No significant masses, calcifications, or other findings are seen in either breast. IMPRESSION: INCOMPLETE: NEEDS ADDITIONAL IMAGING EVALUATION No mammographic evidence of malignancy. A targeted ultrasound is recommended and will immediately follow. Based on the Tyrer Cuzick model (a risk assessment model) the patients lifetime risk is 6.2% and her 10 year risk is 2.6%. According to the ACR, ACS, and NCCN guidelines, an annual breast MRI exam sebastian g with mammogram is recommended if the patients lifetime risk is 20% or greater. This exam was interpreted at Station ID: [id number]. NOTE: For mammograms, a report in lay terms will be sent to the patient. Approximately 15% of breast malignancies will not be visualized mammographically. In the management of a palpable breast mass, a negative mammogram must not discourage biopsy of a clinically suspicious lesion. Electronically Signed By: Bakari Cunningham M.D. slc/:03/02/2023 11:04:39 ACR BI-RADS Category 0: Incomplete 3340F PARENCHYMAL PATTERN: (A) - The breast(s) demonstrate(s) scattered fibroglandular densities. BI-RADS CATEGORY: (0) - 0 Ultrasound [id number] Immediate follow-up LATERALITY: (B)
== END 2023-03-02 10:19 | disposition home or self-care (01) ==
LOC: DI 10:18
PROVIDERS: ATTEND Physician Assistant
DX: N63.15 Unspecified lump in the right breast, overlapping quadrants (principal); N61.1 Abscess of the breast and nipple

== ENCOUNTER 2023-03-11 10:01 | Emergency (ER) | payer MEDICARE, MEDICAID ==
--- NOTE | 2023-03-11 11:43 | XRAY Report ---
PROCEDURE: Hip w/Pelvis 2-3V RT INDICATIONS: R hip pain after sleeping on floor TECHNIQUE: AP pelvis with lateral view(s) of the right hip(s). COMPARISON: None. FINDINGS: Bones: No fractures or dislocations. No suspicious bony lesions. Soft tissues: No suspicious soft tissue calcifications or masses. IMPRESSION: No acute bony abnormality. Reviewed by: Huang Hagen on 03/11/2023 11:41 AM PDT Approved by: Huang Hagen on 03/11/2023 11:41 AM PDT Station ID: [id number]
--- NOTE | 2023-03-11 11:46 | ED Physician Documentation ---
History of Present Illness - Stated complaint Stated Complaint: HIP INJ - Chief complaint Chief Complaint: Ext Problem - History obtained from History obtained from: Patient - History of Present Illness Timing: How many days ago (4) Pain level max: 0 Pain level now: 0 - Additonal information Additional information: 62-year-old female presents to the emergency department complaint of right hip pain. This started about 4 days ago after sleeping on the hard ground. Event, better with rest. She states nothing helps the pain. No deformity. No falls. No trauma. She uses a walker at baseline. Patient denies any head, neck, back pain. No loss of bowel or bladder control. Does not use IV drugs. No fevers. 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: Other : Incontinence, Renal insuffiency, Nocturia HEENT: Chronic vision loss Psych: Anxiety, Bipolar disorder, Post traumatic stress disorder, Claustrophobia, Other Musculoskeletal: Osteoarthritis, Fibromyalgia, Chronic back pain Derm: None - Past Surgical History Past Surgical History: Yes General: Gastric surgery Ortho: Spine surgery /CFD ENGINEER: section, Hysterectomy, Oophrectomy - Present Medications Home Medications: Ambulatory Orders Medication Instructions Recorded Confirmed Prazosin HCl [Minipress] 10 mg PO 199901/10/16 06/27/19 Amitriptyline HCl 100 mg PO 199907/26/18 06/27/19 estradioL [Estradiol] 0.5 mg PO 0800 07/26/18 06/27/19 Furosemide 20 mg PO 0800 03/10/19 06/27/19 Gabapentin [Neurontin] 600 mg PO 0800,1400,199903/10/19 06/27/19 Saccharomyces Boulardii [Florastor] 250 mg PO BID #10 capsule 03/13/19 06/27/19 raNITIdine [Zantac] 150 mg PO DAILY 06/27/19 06/27/19 cephALEXin [Keflex] 500 mg PO BID 5 Days #10 capsule 03/23/20 HYDROcod/ACETAM 5/325 [[place] 5/325] 1 - 2 ea PO Q6H PRN #14 tablet 03/11/23 - Allergies Allergies/Adverse Reactions: Allergies Allergy/AdvReac Type Severity Reaction Status Date / Time Sulfa (Sulfonamide Allergy Mild oral Verified 07/08/21 22:45 Antibiotics) blisters - Social History Does the pt smoke?: Yes Smoking Status: Current every day smoker Does the pt drink ETOH?: No Does the pt have substance abuse?: Yes - Immunizations Immunizations are current?: Yes Immunizations: TDAP current <10years - POLST Patient has POLST: No POLST Status: Full Code PD ED PE NORMAL - Vitals Vital signs reviewed: Yes - General General: Alert and oriented X 3, No acute distress - HEENT HEENT: Atraumatic, PERRL, Moist mucous membranes - Neck Neck: Supple, no meningeal sign, No bony TTP - Cardiac Cardiac: RRR, Strong equal pulses - Respiratory Respiratory: No respiratory distress, Clear bilaterally - Abdomen Abdomen: Soft, Non tender, Non distended - Back Back: No CVA TTP, No spinal TTP (No midline tenderness palpation or percussion. No step-off or deformity.) - Derm Derm: Warm and dry - Extremities Extremities: Other (Tender to palpation over the right greater trochanter, this reproduces her pain. 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 Normal great toe extension bilaterally. no saddle anesthesia) - Psych Psych: Normal mood, Normal affect Results - Vitals Vitals: Vital Signs - 24 hr 03/11/23 03/11/23 10:20 12:16 Temperature 36.6 C Heart Rate 83 80 Respiratory 18 18 Rate Blood Pressure 175/85 H 176/80 H O2 Saturation 100 98 Oxygen O2 Source [With Activity] Nasal cannula O2 Source Room air - Rads (name of study) Right hip x-ray Relevant Findings:: Final report received, See rad report PD Medical Decision Making - ED course Complexity details: reviewed results, re-evaluated patient, considered differential, d/w patient ED course: No acute findings on x-ray of the right hip. Exam is consistent with soft tissue pain, possible contusion. She is tender over the greater trochanter. We will prescribe pain medication for home. She has a walker that she utilizes. No evidence of cauda equina, epidural abscess. No fevers. No IV drug use. No back pain. Patient counseled regarding signs and symptoms for which I believe and urgent re-evaluation would be necessary. Patient with good understanding of and agreement to plan and is comfortable going home at this time This document was made in part using voice recognition software. While efforts are made to proofread this document, sound alike and grammatical errors may occur. Departure - Departure Disposition: 01 Home, Self Care Clinical Impression: Contusion of hip, right Qualifiers: Encounter type: initial encounter Qualified Code(s): S70.01XA - Contusion of right hip, initial encounter Condition: Good Instructions: ED Contusion Lower Ext Follow-Up: Raiza Lunsford ARNP [Primary Care Provider] - Within 1 week Prescriptions: HYDROcod/ACETAM 5/325 [[place] 5/325] 1 - 2 ea PO Q6H PRN #14 tablet PRN Reason: Pain Comments: Your x-ray does not show any acute abnormalities today. Your prescriptions were sent to [facility] in [place]. Please follow-up with your doctor for further care. Please return if you worsen. I am prescribing a short course of narcotic pain medication for you. These are potentially dangerous and addictive medications that should be used carefully. These medications may constipate you. Take an mfyz-fwn-rzfyhgs stool softener (docusate) twice daily with plenty of water while taking these medications. If you go 24 hours without a bowel movement, take [id number] miralax, per package instructions. Do not drink or drive while taking these medications. If you received narcotic or sedating medications while in the emergency department, do not drive for 24 hours. Store this medication in a safe, secure place and out of reach of children. It is a violation of federal law to give or sell this medication to another person or to use in a manner other than prescribed. The ED will not refill narcotic prescriptions, including prescriptions lost or stolen. To dispose of unwanted medications: 1. [facility] at [address] in [place] has a medication drop box. They accept prescription medications (in pill form) Wednesday through Wednesday 9:00 a.m. to 5:00 p.m. 2. [facility] accepts prescription medications (in pill form only) for disposal year round. Call for more information. 3. Contact the [facility] for the next [facility] sponsored prescription drug collection event. , [phone], or [phone]; Discharge Date/Time: 03/11/23 12:16
[2023-03-11 12:18] VITALS: BP 176/80
== END 2023-03-11 12:16 | disposition home or self-care (01) ==
LOC: ED 10:01
DX: S70.01XA Contusion of right hip, initial encounter (principal); X58.XXXA Exposure to other specified factors, initial encounter; I10 Essential (primary) hypertension; E11.42 Type 2 diabetes mellitus with diabetic polyneuropathy; F17.200 Nicotine dependence, unspecified, uncomplicated
CPT/HCPCS: 99283

== ENCOUNTER 2023-08-09 12:26 | Emergency (ER) | payer MEDICARE, MEDICAID ==
[2023-08-09 13:08] VITALS: BP 169/83; O2SAT 94
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
--- NOTE | 2023-08-09 14:55 | CT Report ---
PROCEDURE: HEAD WO INDICATIONS: multiple falls; hx of TBI TECHNIQUE: Noncontrast 4.5 mm thick angled axial sections acquired from the foramen magnum to the vertex. For r adiation dose reduction, the following was used: automated exposure control, adjustment of mA and/or kV according to patient size. COMPARISON: 07/08/2021 FINDINGS: Image quality: Good CSF spaces: Basal cisterns are patent. Lateral ventricles are symmetric. Volume: Vascular calcifications. Periventricular white matter disease is commonly seen with chronic m icroangiopathy. Volume loss is present. These findings are moderate. Brain: No intracranial hemorrhage. Benoit-white differentiation is grossly maintained. Craniofacial structures: No displaced fracture. Sinuses are clear. Orbits are intact. IMPRESSION: No acute intracranial abnormality. Reviewed by: Ricky Rios MD on 08/09/2023 2:54 PM PST Approved by: Ricky Rios MD on 08/09/2023 2:54 PM PST Station ID: [id number]
--- NOTE | 2023-08-09 15:04 | CT Report ---
PROCEDURE: PELVIS WO INDICATIONS: reporting hip pain; r/o fx TECHNIQUE: Noncontrast 3 mm axial sections acquired through the bony pelvis, with coronal and sagittal reformatt ing. For radiation dose reduction, the following was used: automated exposure control, adjustment of mA and/or kV according to patient size. COMPARISON: 03/11/2023 FINDINGS: Image quality: Good Bones: Lumbosacral degenerative changes. Bilateral mild hip degenerative changes also present. No dis placed fracture or dislocation. Soft tissues: Limited evaluation of the intrapelvic structures on this noncontrast imaging. No draina ble fluid collections identified. There is a suspected hematoma in the left gluteal region. Mild scat tered anasarca. IMPRESSION: No displaced fracture or dislocation is identified. Scattered degenerative changes of the hips and orly mbosacral spine. Possible hematoma in the left gluteal subcutaneous region. If there is high concern for further derangement, consider MRI evaluation. Reviewed by: Ricky Rios MD on 08/09/2023 3:03 PM PST Approved by: Ricky Rios MD on 08/09/2023 3:03 PM PST Station ID: [id number]
== END 2023-08-09 16:13 | disposition home or self-care (01) ==
LOC: ED 12:26
DX: S30.0XXA Contusion of lower back and pelvis, initial encounter (principal); W18.30XA Fall on same level, unspecified, initial encounter; I10 Essential (primary) hypertension; E78.00 Pure hypercholesterolemia, unspecified; J44.9 Chronic obstructive pulmonary disease, unspecified; J43.9 Emphysema, unspecified; E11.42 Type 2 diabetes mellitus with diabetic polyneuropathy; Z79.899 Other long term (current) drug therapy; F17.200 Nicotine dependence, unspecified, uncomplicated
CPT/HCPCS: 99283; 99284

== ENCOUNTER 2023-08-13 18:11 | Outpatient (CLI) | payer MEDICARE, MEDICAID | END 2023-08-13 18:12 | disposition critical access hospital (66) | LOC: EMS 18:11 | DX: R41.82 Altered mental status, unspecified (principal); R53.1 Weakness; R42 Dizziness and giddiness | CPT/HCPCS: A0425; A0429 ==

== ENCOUNTER 2023-08-13 18:39 | Emergency (ER) | payer MEDICARE, MEDICAID ==
[2023-08-13 18:54] LABS: MUDS CUTOFF CONCENTRATIONS CUTOFF CONC BELOW:
--- NOTE | 2023-08-13 19:00 | ED Physician Documentation ---
History of Present Illness - Stated complaint Stated Complaint: GLF X 2 WEEKS, AMS - History obtained from History obtained from: Patient, EMS - History of Present Illness Pain level max: 0 Pain level now: 0 - Additonal information Additional information: Patient is a 63-year-old female brought in by EMS. Unclear exactly why she is in the emergency department today, reportedly she fell 2 weeks ago and since that time her caregiver had stated that she was acting differently. There was no indication as to how she is acting differently. Reportedly she had a telepsychiatry visit today with a psychiatrist, but there is no report or results from this. EMS states that there was concerned of potential dehydration. No reports of the patient not eating or drinking. No reports of vomiting or diarrhea. Patient denies having any complaints at this time other than a buttock hematoma which has been present since her fall. She states that is improving however. She states she is unclear why she is in the emergency department. She states she did not want to go to the hospital. There are no reports of suicidal or homicidal ideation. No reports of hallucinations. 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 AGRONOMIST: Other : Incontinence, Renal insuffiency, Nocturia HEENT: Chronic vision loss Psych: Anxiety, Bipolar disorder, Post traumatic stress disorder, Claustrophobia, Other Musculoskeletal: Osteoarthritis, Fibromyalgia, Chronic back pain Derm: None - Past Surgical History Past Surgical History: Yes General: Gastric surgery Ortho: Spine surgery /PRECISION AGRONOMIST: section, Hysterectomy, Oophrectomy - Present Medications Home Medications: Ambulatory Orders Medication Instructions Recorded Confirmed Prazosin HCl [Minipress] 10 mg PO 199901/10/16 06/27/19 Amitriptyline HCl 100 mg PO 199907/26/18 06/27/19 estradioL [Estradiol] 0.5 [place] 7[address]07/26/18 06/27/19 Furosemide 20 mg PO 0800 03/10/19 06/27/19 Gabapentin [Neurontin] 600 mg PO 0800,1400,2000 03/10/19 06/27/19 Saccharomyces Boulardii [Florastor] 250 mg PO BID #10 capsule 03/13/19 06/27/19 raNITIdine [Zantac] 150 mg PO DAILY 06/27/19 06/27/19 cephALEXin [Keflex] 500 mg PO BID 5 Days #10 capsule 03/23/20 HYDROcod/ACETAM 5/325 [[place] 5/325] 1 - 2 ea PO Q6H PRN #14 tablet 03/11/23 - Allergies Allergies/Adverse Reactions: Allergies Allergy/AdvReac Type Severity Reaction Status Date / Time Sulfa (Sulfonamide Allergy Mild oral Verified 08/13/23 19:16 Antibiotics) blisters - Social History Does the pt smoke?: Yes Smoking Status: Current every day smoker Does the pt drink ETOH?: No Does the pt have substance abuse?: Yes - Immunizations Immunizations are current?: Yes Immunizations: TDAP current <10years - POLST Patient has POLST: No POLST Status: Full Code PD ED PE NORMAL - Vitals Vital signs reviewed: Yes - General General: Alert and oriented X 3, No acute distress - HEENT HEENT: Atraumatic, PERRL, EOMI, Moist mucous membranes - Neck Neck: Supple, no meningeal sign, No bony TTP - Cardiac Cardiac: RRR, Strong equal pulses - Respiratory Respiratory: No respiratory distress, Clear bilaterally - Abdomen Abdomen: Soft, Non tender, Non distended - Back Back: No spinal TTP - Derm Derm: Warm and dry - Extremities Extremities: No edema, No calf tenderness / cord, Other (Resolving left-sided buttock hematoma. 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 2-12 intact, No motor deficit, No sensory deficit, Normal speech Eye Opening: Spontaneous Motor: Obeys Commands Verbal: Oriented GCS Score: 15 - Psych Psych: Normal mood, Normal affect Results - Vitals Vitals: Vital Signs - 24 hr 08/13/23 08/13/23 19:02 20:34 Temperature 36.4 C L 37 C Heart Rate 94 83 Respiratory 18 20 Rate Blood Pressure 189/79 H 120/75 O2 Saturation 99 100 Oxygen O2 Source [With Activity] Nasal cannula O2 Source Room air - Labs Labs: Laboratory Tests 08/13/23 08/13/23 08/13/23 18:50 18:58 18:58 WBC 5.1 RBC 3.65 L Hgb 7.9 L Hct 28.9 L MCV 79.2 L MCH 21.6 L MCHC 27.3 L RDW 19.8 H Plt Count 266 MPV 9.3 Neut # (Auto) 3.8 Lymph # (Auto) 0.8 L [place] # (Auto) 0.2 Eos # (Auto) 0.2 Baso # (Auto) 0.1 Absolute Nucleated RBC 0.00 Nucleated RBC % 0.0 Manual Slide Review Indicated WBC Morphology NORMAL APPEARANCE Platelet Estimate NORMAL (130-450,000) Platelet Morphology NORMAL APPEARANCE RBC Morph Micro Appear 2+ HYPOCHROMASIA Sodium 130 L Potassium 2.8 L Chloride 94 L Carbon Dioxide 27 Anion Gap 9.0 BUN 4 L Creatinine 0.3 L Estimated GFR (MDRD) 225 Glucose 103 Calcium 8.9 Magnesium 1.7 Total Bilirubin 0.3 AST 16 ALT 10 Alkaline Phosphatase 116 Total Protein 7.1 Albumin 3.9 Globulin 3.2 Albumin/Globulin Ratio 1.2 Lipase 37 Vitamin B12 265 Folate 9.5 TSH 3.67 Urine Color YELLOW Urine Clarity CLEAR Urine pH 7.0 Ur Specific [place] <=1.005 Urine Protein NEGATIVE Urine Glucose (UA) NEGATIVE Urine Ketones NEGATIVE Urine Occult Blood NEGATIVE Urine Nitrite NEGATIVE Urine Bilirubin NEGATIVE Urine Urobilinogen 0.2 (NORMAL) Ur Leukocyte Esterase NEGATIVE Ur Microscopic Review NOT INDICATED Urine Culture Comments NOT INDICATED Salicylates < 1.5 Urine Opiates Screen NEGATIVE Ur Oxycodone Screen NEGATIVE Urine Methadone Screen NEGATIVE Ur Propoxyphene Screen NEGATIVE Acetaminophen 0.1 Ur Barbiturates Screen POSITIVE H Ur Tricyclics Screen POSITIVE H Ur Phencyclidine Scrn NEGATIVE Ur Amphetamine Screen NEGATIVE U Methamphetamines Scrn NEGATIVE U Benzodiazepines Scrn NEGATIVE Urine Cocaine Screen NEGATIVE U Cannabinoids Screen NEGATIVE Ethyl Alcohol < 10.0 - Rads (name of study) Head CT Relevant Findings:: Final report received, See rad report PD Medical Decision Making - ED course Complexity details: reviewed results, re-evaluated patient, considered differential, d/w patient ED course: No acute findings on laboratory testing to explain her symptoms. She did have mild hyponatremia but this is chronic. Mild hypokalemia as well and this was replaced. Head CT does not show any acute abnormalities. She does not appear acutely altered in the emergency department. She is alert and oriented. Patient denies any complaints at this time. No evidence of fever, sepsis, meningitis, encephalitis. We will have her follow-up with her PCP for further care. Patient counseled regarding signs and symptoms for which I believe and urgent re-evaluation would be necessary. Patient with good understanding of and agreement to plan and is comfortable going home at this time This document was made in part using voice recognition software. While efforts are made to proofread this document, sound alike and grammatical errors may occur. Departure - Departure Disposition: Home, Self Care Clinical Impression: Hypokalemia, Hyponatremia Anemia Qualifiers: Anemia type: unspecified type Qualified Code(s): D64.9 - Anemia, unspecified Closed head injury Qualifiers: Encounter type: initial encounter Qualified Code(s): S09.90XA - Unspecified injury of head, initial encounter Condition: Good Instructions: ED Head Injury Closed Follow-Up: Raiza Lunsford ARNP [Provider Admit Priv/Credential] - Within 1 week Comments: Please follow-up with your doctor for any further care. You do have chronic anemia. Your blood count should be rechecked with your doctor in 1 week. Your sodium and potassium level should be rechecked with your doctor in 1 week as well. Your repeat head CT does not show any acute abnormalities. Please return if you worsen. Forms: PCP List
[2023-08-13 19:16] LABS: BILIRUBIN,URINE NEGATIVE (NEGATIVE); GLUCOSE, URINE (UA) NEGATIVE (NEGATIVE); KETONES,URINE (UA) NEGATIVE (NEGATIVE); LEUKOCYTE ESTERASE, URINE NEGATIVE (NEGATIVE); NITRITE,URINE NEGATIVE (NEGATIVE); OCCULT BLOOD,URINE NEGATIVE (NEGATIVE); PROTEIN,URINE NEGATIVE (NEGATIVE); UROBILINOGEN,URINE 0.2 (NORMAL) E.U./dL (NORMAL)
[2023-08-13 19:16] LABS: BASOPHILS # (AUTO) 0.1 10^3/uL (0.0-0.1); EOSINOPHILS # (AUTO) 0.2 10^3/uL (0.0-0.7); EOSINOPHILS % (AUTO) 4.3 %; HCT - HEMATOCRIT 28.9 % (37.0-47.0); HGB - HEMOGLOBIN 7.9 g/dL (12.0-16.0); LYMPHOCYTES # (AUTO) 0.8 10^3/uL (1.5-3.5); LYMPHOCYTES % (AUTO) 15.6 %; MEAN CORPUSCULAR HEMOGLOBIN 21.6 pg (27.0-31.0); MEAN CORPUSCULAR HGB CONC 27.3 g/dL (32.0-36.0); MEAN CORPUSCULAR VOLUME 79.2 fL (81.0-99.0); MEAN PLATELET VOLUME 9.3 fL (7.9-10.8); MONOCYTES # (AUTO) 0.2 10^3/uL (0.0-1.0); MONOCYTES % (AUTO) 4.5 %; NEUTROPHILS # (AUTO) 3.8 10^3/uL (1.5-6.6); NEUTROPHILS % (AUTO) 74.2 %; PLT - PLATELET COUNT 266 10^3/uL (130-450); RED BLOOD COUNT 3.65 10^6/uL (4.20-5.40); RED CELL DISTRIBUTION WIDTH 19.8 % (12.0-15.0); WHITE BLOOD COUNT 5.1 x10^3/uL (4.8-10.8)
[2023-08-13 19:17] LABS: SLIDE REVIEW? Indicated
[2023-08-13 19:18] LABS: CLARITY,URINE CLEAR (CLEAR)
[2023-08-13 19:27] LABS: ACETAMINOPHEN 0.1 ug/mL; ALBUMIN 3.9 g/dL (3.2-5.5); ETOH - ETHANOL < 10.0 mg/dL; LIPASE 37 U/L (11-82); MAGNESIUM 1.7 mg/dL (1.7-2.3)
[2023-08-13 19:30] LABS: AMPHETAMINE SCREEN,URINE NEGATIVE (NEGATIVE); BARBITURATE SCREEN,UR POSITIVE (NEGATIVE); BENZODIAZEPINES SCREEN, URINE NEGATIVE (NEGATIVE); COCAINE SCREEN URINE NEGATIVE (NEGATIVE); METHADONE SCREEN, URINE NEGATIVE (NEGATIVE); METHAMPHETAMINES SCREEN, URINE NEGATIVE (NEGATIVE); OPIATE SCREEN, URINE NEGATIVE (NEGATIVE); OXYCODONE SCREEN, URINE NEGATIVE (NEGATIVE); PROPOXYPHENE SCREEN, URINE NEGATIVE (NEGATIVE); THC CANNABINOID SCREEN, URINE NEGATIVE (NEGATIVE); TRICYCLIC ANTIDEPRESSANT,URINE POSITIVE (NEGATIVE)
[2023-08-13 20:19] LABS: PLATELET ESTIMATE, MANUAL NORMAL (130-450,000) (NORMAL); PLATELET MORPHOLOGY NORMAL APPEARANCE (NORMAL); WBC MORPHOLOGY (MULTIPLE) NORMAL APPEARANCE (NORMAL)
--- NOTE | 2023-08-13 20:20 | CT Report ---
PROCEDURE: HEAD WO INDICATIONS: falls, altered mental status TECHNIQUE: Noncontrast 4.5 mm thick angled axial sections acquired from the foramen magnum to the vertex. For r adiation dose reduction, the following was used: automated exposure control, adjustment of mA and/or kV according to patient size. COMPARISON: 08/09/2023, 07/08/2021 FINDINGS: Image quality: Excellent. CSF spaces: Basal cisterns are patent. No extra-axial fluid collections. The ventricles are symmet zack in size and shape. Brain: No intracranial bleeds or masses. There is cerebral volume loss for age, with resultant vent ricular and sulcal prominence. There are periventricular and deep white matter chronic small vessel ischemic changes. There is intracranial internal carotid artery atherosclerosis. Skull and face: Calvarium and visualized facial bones appear intact, without suspicious lesions. Sinuses: Visualized sinuses and mastoids are clear. IMPRESSION: No acute intracranial abnormalities. No significant changes from previous study. Reviewed by: Raphael Daly MD on 08/13/2023 8:18 PM PST Approved by: Raphael Daly MD on 08/13/2023 8:18 PM PST Station ID: [id number]
[2023-08-13 20:40] VITALS: O2SAT 100
[2023-08-13 21:07] LABS: SALICYLATE < 1.5 mg/dL
[2023-08-13 21:08] LABS: ALBUMIN/GLOBULIN RATIO 1.2 (1.0-2.2); ALKALINE PHOSPHATASE 116 IU/L (42-121); ALT ALANINE AMINOTRANSFERASE 10 IU/L (10-60); AST ASPARTATE AMINOTRANSFERASE 16 IU/L (10-42); BILIRUBIN,TOTAL 0.3 mg/dL (0.2-1.0); BUN - BLOOD UREA NITROGEN 4 mg/dL (6-20); CALCIUM 8.9 mg/dL (8.5-10.3); CARBON DIOXIDE - CO2 27 mmol/L (21-32); CHLORIDE 94 mmol/L (101-111); CREATININE 0.3 mg/dL (0.6-1.3); GFR - MDRD 225 (>89); GLUCOSE 103 mg/dL (74-104); POTASSIUM 2.8 mmol/L (3.5-4.5); SODIUM 130 mmol/L (135-145); TOTAL PROTEIN 7.1 g/dL (6.4-8.9)
[2023-08-13 21:10] LABS: THYROID STIMULATING HORMONE 3.67 uIU/mL (0.34-5.60)
[2023-08-13] MEDS ORDERED: POTASSIUM BICARB 25 MEQ TABLET PO STA (21:17)
[2023-08-13 22:35] VITALS: BP 128/74
== END 2023-08-13 22:31 | disposition home or self-care (01) ==
LOC: EDUNIT# → ED 18:39
DX: E87.6 Hypokalemia (principal); E87.1 Hypo-osmolality and hyponatremia; D64.9 Anemia, unspecified; S09.90XA Unspecified injury of head, initial encounter; W18.30XA Fall on same level, unspecified, initial encounter; F17.200 Nicotine dependence, unspecified, uncomplicated
CPT/HCPCS: 36415; 70450; 80053; 80306; 80307; 81003; 82607; 82746; 83690; 83735; 84443; 85025; 99283; 99284; A9270; G0480; 80320; 80329; 81001; 87086

== ENCOUNTER 2023-11-21 15:56 | Outpatient (CLI) | payer MEDICARE, MEDICAID | END 2023-11-21 15:57 | disposition critical access hospital (66) | LOC: EMS 15:56 | DX: R41.82 Altered mental status, unspecified (principal); R29.6 Repeated falls; R63.8 Other symptoms and signs concerning food and fluid intake; F10.90 Alcohol use, unspecified, uncomplicated | CPT/HCPCS: A0425; A0429 ==

== ENCOUNTER 2023-11-21 16:27 | Emergency (ER) | payer MEDICARE, MEDICAID ==
--- NOTE | 2023-11-21 16:35 | ED Physician Documentation ---
History of Present Illness - Stated complaint Stated Complaint: ETOH/AMS/GLF - History obtained from History obtained from: Patient, EMS - Additonal information Additional information: 63-year-old woman with history of alcoholism, COPD, psychiatric disease, type 2 diabetes presents by ambulance. When queried as to her chief complaint she says she has had a sore throat for 3 days. Per EMS a neighbor was concerned that she is not eating or drinking, but patient is drinking alcohol every day. 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: Other : Incontinence, Renal insuffiency, Nocturia HEENT: Chronic vision loss Psych: Anxiety, Bipolar disorder, Post traumatic stress disorder, Claustrophobia, Other Musculoskeletal: Osteoarthritis, Fibromyalgia, Chronic back pain Derm: None - Past Surgical History Past Surgical History: Yes General: Gastric surgery Ortho: Spine surgery /WAFER SUBSTRATE TESTER: section, Hysterectomy, Oophrectomy - Present Medications Home Medications: Ambulatory Orders Medication Instructions Recorded Confirmed Prazosin HCl [Minipress] 10 mg PO 199901/10/16 06/27/19 Amitriptyline HCl 100 mg PO 199907/26/18 06/27/19 estradioL [Estradiol] 0.5 mg PO 0800 07/26/18 06/27/19 Furosemide 20 mg PO 0800 03/10/19 06/27/19 Gabapentin [Neurontin] 600 mg PO 0800,1400,199903/10/19 06/27/19 Saccharomyces Boulardii [Florastor] 250 mg PO BID #10 capsule 03/13/19 06/27/19 raNITIdine [Zantac] 150 mg PO DAILY 06/27/19 06/27/19 cephALEXin [Keflex] 500 mg PO BID 5 Days #10 capsule 03/23/20 HYDROcod/ACETAM 5/325 [[place] 5/325] 1 - 2 ea PO Q6H PRN #14 tablet 03/11/23 - Allergies Allergies/Adverse Reactions: Allergies Allergy/AdvReac Type Severity Reaction Status Date / Time Sulfa (Sulfonamide Allergy Mild oral Verified 11/21/23 16:34 Antibiotics) blisters - Social History Does the pt smoke?: Yes Smoking Status: Current every day smoker Does the pt drink ETOH?: No Does the pt have substance abuse?: Yes - Immunizations Immunizations are current?: Yes Immunizations: TDAP current <10years - POLST Patient has POLST: No POLST Status: Full Code PD ED PE NORMAL - Vitals Vital signs reviewed: Yes - General General: Other (Slightly unkempt drunk woman who is intermittently cooperative and does not want to be here. She smells of alcohol and cigarettes.) - HEENT HEENT: PERRL, EOMI (With significant nystagmus) - Neck Neck: Supple, no meningeal sign, No bony TTP - Cardiac Cardiac: RRR, No murmur - Respiratory Respiratory: No respiratory distress, Clear bilaterally - Abdomen Abdomen: Soft, Non tender - Back Back: No CVA TTP, No spinal TTP - Derm Derm: Normal color, Warm and dry - Neuro Neuro: Alert and oriented X 3, No motor deficit, No sensory deficit, Normal speech Eye Opening: Spontaneous Motor: Obeys Commands Verbal: Oriented GCS Score: 15 Results - Vitals Vitals: Vital Signs - 24 hr 11/21/23 11/21/23 16:34 16:41 Temperature 36.5 C 36.5 C Heart Rate 88 88 Respiratory 20 20 Rate Blood Pressure 160/100 H 160/100 H O2 Saturation 94 94 Oxygen O2 Source [With Activity] Nasal cannula O2 Source Room air - Labs Labs: Laboratory Tests 11/21/23 11/21/23 16:40 16:40 WBC 7.9 RBC 4.88 Hgb 12.0 Hct 38.5 MCV 78.9 L MCH 24.6 L MCHC 31.2 L RDW 19.0 H Plt Count 123 L MPV 8.7 Neut # (Auto) 6.4 Lymph # (Auto) 1.0 L [place] # (Auto) 0.4 Eos # (Auto) 0.0 Baso # (Auto) 0.1 Absolute Nucleated RBC 0.00 Nucleated RBC % 0.0 Sodium 129 L Potassium 4.0 Chloride 92 L Carbon Dioxide 20 L Anion Gap 17.0 H BUN 6 Creatinine 0.3 L Estimated GFR (MDRD) 225 Glucose 122 H Calcium 8.1 L Magnesium 1.8 Total Bilirubin 0.4 AST 209 H ALT 208 H Alkaline Phosphatase 132 H Total Creatine Kinase 73 Total Protein 7.5 Albumin 3.9 Globulin 3.6 Albumin/Globulin Ratio 1.1 Lipase 88 H Salicylates < 1.5 Acetaminophen 0.3 Ethyl Alcohol 438.5 PD Medical Decision Making - ED course ED course: 63-year-old woman presents by ambulance. She is clinically intoxicated which is corroborated on her blood work with a blood alcohol very high at 438. She has some evidence of mild to moderate liver disease. She is cooperative here albeit intoxicated. Anticipate sobriety approximately 8 to 9 AM tomorrow. Departure - Departure Clinical Impression: Alcoholic liver disease Alcohol intoxication Qualifiers: Complication of substance-induced condition: with delirium Qualified Code(s): F10.921 - Alcohol use, unspecified with intoxication delirium Condition: Stable Instructions: ED Alcohol Abuse, ED Alcohol Intoxication
[2023-11-21 16:45] LABS: BASOPHILS # (AUTO) 0.1 10^3/uL (0.0-0.1); BASOPHILS % (AUTO) 0.6 %; EOSINOPHILS % (AUTO) 0.4 %; HCT - HEMATOCRIT 38.5 % (37.0-47.0); LYMPHOCYTES % (AUTO) 12.7 %; MEAN CORPUSCULAR HEMOGLOBIN 24.6 pg (27.0-31.0); MEAN CORPUSCULAR HGB CONC 31.2 g/dL (32.0-36.0); MEAN CORPUSCULAR VOLUME 78.9 fL (81.0-99.0); MEAN PLATELET VOLUME 8.7 fL (7.9-10.8); MONOCYTES # (AUTO) 0.4 10^3/uL (0.0-1.0); MONOCYTES % (AUTO) 5.5 %; NEUTROPHILS # (AUTO) 6.4 10^3/uL (1.5-6.6); NEUTROPHILS % (AUTO) 80.3 %; PLT - PLATELET COUNT 123 10^3/uL (130-450); RED BLOOD COUNT 4.88 10^6/uL (4.20-5.40); WHITE BLOOD COUNT 7.9 x10^3/uL (4.8-10.8)
[2023-11-21 17:01] LABS: ACETAMINOPHEN 0.3 ug/mL; CK- CREATINE KINASE 73 IU/L (30-223); ETOH - ETHANOL 438.5 mg/dL; LIPASE 88 U/L (11-82); MAGNESIUM 1.8 mg/dL (1.7-2.3)
[2023-11-21 17:05] LABS: ALBUMIN 3.9 g/dL (3.2-5.5); ALBUMIN/GLOBULIN RATIO 1.1 (1.0-2.2); ALKALINE PHOSPHATASE 132 IU/L (42-121); ALT ALANINE AMINOTRANSFERASE 208 IU/L (10-60); AST ASPARTATE AMINOTRANSFERASE 209 IU/L (10-42); BILIRUBIN,TOTAL 0.4 mg/dL (0.2-1.0); BUN - BLOOD UREA NITROGEN 6 mg/dL (6-20); CALCIUM 8.1 mg/dL (8.5-10.3); CARBON DIOXIDE - CO2 20 mmol/L (21-32); CHLORIDE 92 mmol/L (101-111); CREATININE 0.3 mg/dL (0.6-1.3); GFR - MDRD 225 (>89); GLUCOSE 122 mg/dL (74-104); SALICYLATE < 1.5 mg/dL; SODIUM 129 mmol/L (135-145); TOTAL PROTEIN 7.5 g/dL (6.4-8.9)
[2023-11-21 17:13] LABS: BILIRUBIN,URINE SMALL (NEGATIVE); GLUCOSE, URINE (UA) NEGATIVE (NEGATIVE); KETONES,URINE (UA) 15 mg/dL (NEGATIVE); LEUKOCYTE ESTERASE, URINE MODERATE (NEGATIVE); NITRITE,URINE NEGATIVE (NEGATIVE); OCCULT BLOOD,URINE MODERATE (NEGATIVE); PROTEIN,URINE >=300 mg/dL (NEGATIVE); UROBILINOGEN,URINE 1 (NORMAL) E.U./dL (NORMAL)
[2023-11-21 17:14] LABS: THYROID STIMULATING HORMONE 3.06 uIU/mL (0.34-5.60)
[2023-11-21 17:15] LABS: CLARITY,URINE CLOUDY (CLEAR)
[2023-11-21 17:16] LABS: BACTERIA,URINE Many /HPF (None Seen); RBC,URINE 0-5 /HPF (0-5); SQUAMOUS EPITHELIAL CELL,UR MANY Squamous (<= Few)
[2023-11-21 17:17] LABS: AMORPHOUS SEDIMENT,UR Few /LPF
[2023-11-21] MEDS: THIAMINE 100 MG TABLET PO STA (17:17)
[2023-11-21] MEDS: PHENOL THROAT SPRAY 177 ML MM PRN (17:18)
[2023-11-21 17:22] LABS: AMPHETAMINE SCREEN,URINE NEGATIVE (NEGATIVE); BARBITURATE SCREEN,UR NEGATIVE (NEGATIVE); BENZODIAZEPINES SCREEN, URINE NEGATIVE (NEGATIVE); BUPRENORPHINE SCREEN, URINE NEGATIVE (NEGATIVE); COCAINE SCREEN URINE NEGATIVE (NEGATIVE); METHADONE SCREEN, URINE NEGATIVE (NEGATIVE); METHAMPHETAMINES SCREEN, URINE NEGATIVE (NEGATIVE); OPIATE SCREEN, URINE NEGATIVE (NEGATIVE); OXYCODONE SCREEN, URINE NEGATIVE (NEGATIVE); THC CANNABINOID SCREEN, URINE NEGATIVE (NEGATIVE); TRICYCLIC ANTIDEPRESSANT,URINE POSITIVE (NEGATIVE)
[2023-11-21] MEDS: SODIUM CHLORIDE 0.9% 1,000 ML IV STA (22:25)
[2023-11-21] MEDS: ONDANSETRON 4 MG/2 ML VIAL IVP STA (22:48)
[2023-11-22] MEDS: SODIUM CHLORIDE 0.9% 1,000 ML IV STA (03:10)
[2023-11-22] MEDS: LORazepam 2 MG/ML VIAL IVP STA ×3 (03:19→11:25)
[2023-11-22 08:03] LABS: ETOH - ETHANOL < 10.0 mg/dL; MAGNESIUM 1.6 mg/dL (1.7-2.3)
[2023-11-22 08:04] LABS: BUN - BLOOD UREA NITROGEN 6 mg/dL (6-20); CARBON DIOXIDE - CO2 19 mmol/L (21-32); CHLORIDE 94 mmol/L (101-111); CREATININE 0.2 mg/dL (0.6-1.3); GFR - MDRD 360 (>89); GLUCOSE 85 mg/dL (74-104); POTASSIUM 3.7 mmol/L (3.5-4.5); SODIUM 130 mmol/L (135-145)
[2023-11-22] MEDS: PHENobarbital 65 MG/ML VIAL IV STA ×2 (08:18→11:26)
[2023-11-22] MEDS: THIAMINE INJ 100 MG in SODIUM CHLORIDE 0.9% 50 ML IV STA (12:21)
--- NOTE | 2023-11-22 12:31 | ED Physician Documentation ---
ED Addendum - Addendum Addendum: 11/22/23 12:28 The patient had uneventful course overnight. She slept a good part of it. This morning she was starting to experience some shakiness and nausea consistent with alcohol withdrawal. It looks as though she was given an Ativan at around 3 in the morning to help with sleep but not reportedly having much withdrawal at that time. This morning her CIWA score is 13 some moderate withdrawal. I talked with her and she has been through detox before and states she is not interested in inpatient detox at this time. I will have social work talk with her as well. Meanwhile she was given a combination of phenobarbital 130 mg IV and Ativan 1 mg IV with reasonable improvement in her symptoms. She is still had a little bit of shakiness. She was given an additional 65 mg IV phenobarb and some more Ativan. She is eating some food and drinking fluids and ice chips. No nausea or vomiting at this time. Slight shakiness. Francie our social insurance analyst went and talked with her as well. The patient reaffirmed that she was not interested in detox or alcohol treatment at this point. She is interested in medication to help with withdrawal and states she will not drink at home. She is calling for a ride. Her symptoms are moderate enough and reasonably improved that I believe outpatient treatment is doable. I will prescribe her phenobarbital and Ativan and Zofran. Disposition: The patient discharged home in stable condition. Diagnoses: 1. Alcohol use disorder 2. Altered mental status from alcoholic delirium, improved 3. Alcohol withdrawal
[2023-11-22 15:17] VITALS: BP 150/78; O2SAT 94
== END 2023-11-22 15:13 | disposition home or self-care (01) ==
LOC: EDUNIT# → ED 16:27
DX: K70.9 Alcoholic liver disease, unspecified (principal); F10.231 Alcohol dependence with withdrawal delirium; Y90.8 Blood alcohol level of 240 mg/100 ml or more; I10 Essential (primary) hypertension; E78.00 Pure hypercholesterolemia, unspecified; J44.9 Chronic obstructive pulmonary disease, unspecified; J43.9 Emphysema, unspecified; E11.42 Type 2 diabetes mellitus with diabetic polyneuropathy; F17.210 Nicotine dependence, cigarettes, uncomplicated; Z79.899 Other long term (current) drug therapy
CPT/HCPCS: 36415; 80048; 80053; 80143; 80306; 81001; 82550; 82607; 82746; 83690; 83735; 84443; 85025; 87635; 96365; 96375; 96376; 99283; 99284; A9270; G0480; J2060; J2560; J3411; J7040; 80179; 81003; 82077; 87086

== ENCOUNTER 2023-12-16 19:30 | Outpatient (CLI) | payer MEDICARE, MEDICAID | END 2023-12-16 23:59 | disposition EMS.NT | LOC: EMS 19:30 | DX: S01.01XA Laceration without foreign body of scalp, initial encounter (principal); W01.190A Fall on same level from slipping, tripping and stumbling with subsequent striking against furniture, initial encounter; Y92.009 Unspecified place in unspecified non-institutional (private) residence as the place of occurrence of the external cause ==

== ENCOUNTER 2024-05-20 23:53 | Outpatient (CLI) | payer MEDICARE, MEDICAID | END 2024-05-20 23:54 | disposition left against medical advice (07) | LOC: EMS 23:53 | DX: R04.0 Epistaxis (principal); W01.0XXA Fall on same level from slipping, tripping and stumbling without subsequent striking against object, initial encounter; Y92.000 Kitchen of unspecified non-institutional (private) residence as the place of occurrence of the external cause; F10.90 Alcohol use, unspecified, uncomplicated ==

== ENCOUNTER 2024-06-05 00:56 | Outpatient (CLI) | payer MEDICARE, MEDICAID | END 2024-06-05 23:59 | disposition critical access hospital (66) | LOC: EMS 00:56 | DX: S01.01XA Laceration without foreign body of scalp, initial encounter (principal); R41.82 Altered mental status, unspecified; R51.9 Headache, unspecified; M54.2 Cervicalgia; M54.50 Low back pain, unspecified; M25.552 Pain in left hip; W19.XXXA Unspecified fall, initial encounter; Y92.003 Bedroom of unspecified non-institutional (private) residence as the place of occurrence of the external cause; F10.20 Alcohol dependence, uncomplicated | CPT/HCPCS: A0425; A0429 ==

== ENCOUNTER 2024-06-05 01:15 | Inpatient (IN) | payer MEDICARE, MEDICAID ==
--- NOTE | 2024-06-05 01:28 | ED Physician Documentation ---
History of Present Illness - Stated complaint Stated Complaint: FALL/L HIP PX - History obtained from History obtained from: Patient, EMS - Additonal information Additional information: 64-year-old woman presents brought in by EMS with reported heavy alcohol use tonight and then mechanical trip and fall with possible head trauma and unknown LOC. Patient is not on blood thinners. ANO x 2 on scene and in the ED. GCS 14. She had a soft collar in place which was replaced with a c-collar upon arrival. Further history limited by patient intoxication. 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: Other : Incontinence, Renal insuffiency, Nocturia HEENT: Chronic vision loss Psych: Anxiety, Bipolar disorder, Post traumatic stress disorder, Claustrophobia , Other Musculoskeletal: Osteoarthritis, Fibromyalgia, Chronic back pain Derm: None - Past Surgical History Past Surgical History: Yes General: Gastric surgery Ortho: Spine surgery /FORENSIC SCIENCE EXAMINER: section, Hysterectomy, Oophrectomy - Present Medications Home Medications: Ambulatory Orders Medication Instructions Recorded Confirmed Amitriptyline HCl 100 mg PO HS 11/21/23 11/21/23 DULoxetine [Cymbalta] 60 mg PO DAILY 11/21/23 06/05/24 Divalproex Sodium [Depakote] 500 mg PO BID 11/21/23 11/21/23 Quetiapine Fumarate [Quetiapine 200 mg PO HS 11/21/23 11/21/23 Fumarate ER] Simvastatin [Zocor] 20 mg PO HS 11/21/23 06/05/24 metFORMIN [Glucophage] 500 mg PO BID 11/21/23 06/05/24 LORazepam [Ativan] 1 mg PO Q6H PRN #25 tablet 11/22/23 Ondansetron Odt [Zofran] 4 mg TL Q6H PRN #10 tablet 11/22/23 PHENobarbitaL [Phenobarbital] 30 mg PO BID 6 Days #9 tablet 11/22/23 Gabapentin [Neurontin] 600 mg PO TID 06/05/24 06/05/24 - Allergies Allergies/Adverse Reactions: Allergies Allergy/AdvReac Type Severity Reaction Status Date / Time Sulfa (Sulfonamide Allergy Mild oral Verified 11/21/23 16:34 Antibiotics) blisters - Social History Does the pt smoke?: Yes Smoking Status: Current every day smoker Does the pt drink ETOH?: No Does the pt have substance abuse?: Yes - Immunizations Immunizations are current?: Yes Immunizations: TDAP current <10years - POLST Patient has POLST: No POLST Status: Full Code PD ED PE NORMAL - Vitals Vital signs reviewed: Yes - General General: No acute distress, Well developed/nourished, Other (Alert and oriented x 2) - HEENT HEENT: Atraumatic, PERRL, EOMI, Other (Raccoon eyes and multiple ecchymoses across the face with chronic appearing chin wound) - Neck Neck: No bony TTP, Other (C-collar in place) - Cardiac Cardiac: RRR - Respiratory Respiratory: No respiratory distress, Clear bilaterally - Abdomen Abdomen: Non tender, Non distended - Back Back: No spinal TTP - Derm Derm: Normal color, Warm and dry - Extremities Extremities: No deformity - Neuro Neuro: No motor deficit, No sensory deficit Eye Opening: Spontaneous Motor: Obeys Commands Verbal: Confused GCS Score: 14 Results - Vitals Vitals: Vital Signs - 24 hr 06/05/24 06/05/24 06/05/24 01:28 01:50 03:55 Temperature 36.8 C Heart Rate 87 85 95 Respiratory 18 16 16 Rate Blood Pressure 173/85 H 173/85 H 160/78 H O2 Saturation 95 92 93 If not protocol 3 : Oxygen Flow, liters/minute 06/05/24 06/05/24 05:06 06:08 Temperature Heart Rate 102 H 106 H Respiratory 14 18 Rate Blood Pressure 209/108 H 148/79 H O2 Saturation 94 97 If not protocol 2 2 : Oxygen Flow, liters/minute Oxygen O2 Source [With Activity] Nasal cannula O2 Source Nasal cannula - Labs Labs: Laboratory Tests 06/05/24 06/05/24 06/05/24 01:36 01:36 02:40 WBC 14.3 H RBC 4.55 Hgb 11.8 L Hct 35.9 L MCV 78.9 L MCH 25.9 L MCHC 32.9 RDW 16.6 H Plt Count 348 MPV 8.7 Neut # (Auto) Not Reportable Lymph # (Auto) Not Reportable [place] # (Auto) Not Reportable Eos # (Auto) Not Reportable Baso # (Auto) Not Reportable Absolute Nucleated RBC Not Reportable Total Counted 100 Band Neuts % (Manual) 0 Abnorm Lymph % (Manual) 0 Nucleated RBC % Not Reportable Neutrophils # (Manual) 13.0 H Lymphocytes # (Manual) 1.1 L Monocytes # (Manual) 0.1 Eosinophils # (Manual) 0.0 Basophils # (Manual) 0.0 Differential Comment MANUAL DIFFERENTIAL Manual Slide Review Indicated WBC Morphology NORMAL APPEARANCE Platelet Estimate NORMAL (130-450,000) Platelet Morphology NORMAL APPEARANCE RBC Morph Micro Appear NORMAL APPEARANCE Sodium 115 L* Potassium 3.6 Chloride 82 L Carbon Dioxide 21 Anion Gap 12.0 BUN 5 L Creatinine 0.2 L Estimated GFR (MDRD) 359 Glucose 144 H Calcium 8.7 Total Bilirubin 0.8 AST 33 ALT 27 Alkaline Phosphatase 89 Total Protein 7.2 Albumin 3.5 Globulin 3.7 Albumin/Globulin Ratio 0.9 L Lipase 33 Urine Color YELLOW Urine Clarity CLEAR Urine pH 7.0 Ur Specific [place] 1.020 Urine Protein 30 H Urine Glucose (UA) NEGATIVE Urine Ketones 40 H Urine Occult Blood TRACE-INTA Urine Nitrite NEGATIVE Urine Bilirubin NEGATIVE Urine Urobilinogen 0.2 (NORMAL) Ur Leukocyte Esterase TRACE H Urine RBC 0-5 Urine WBC 0-3 Ur Squamous Epith Cells MOD Squamous H Urine Bacteria Few Ur Microscopic Review INDICATED Urine Culture Comments NOT INDICATED Urine Opiates Screen NEGATIVE Ur Buprenorphine Scrn NEGATIVE Ur Oxycodone Screen NEGATIVE Urine Methadone Screen NEGATIVE Ur Barbiturates Screen POSITIVE H Ur Tricyclics Screen NEGATIVE Ur Phencyclidine Scrn NEGATIVE Ur Amphetamine Screen NEGATIVE U Methamphetamines Scrn NEGATIVE U Benzodiazepines Scrn NEGATIVE Urine Cocaine Screen NEGATIVE U Cannabinoids Screen NEGATIVE Ur Drug Screen Comment CUTOFF CONC BELOW: Ethyl Alcohol < 10.0 PD Medical Decision Making - ED course ED course: 64-year-old woman presents brought in by EMS status post mechanical trip and fall with possible head trauma and LOC. patient had stated she drank at least 5 servings of alcohol tonight but her alcohol level is negative. she is unable to accurately say the year. AOX2. traumatic workup including panscan uncovered nasal bone fracture that appears nonoperative. she is found to have Na 115 in the setting of confusion. plan to admit at 5:30am. d/w telehospitalist at 6:30am who approved for admission to ICU. Departure - Departure Disposition: 67 [facility] DC/Xfer Clinical Impression: Fall from standing, Hyponatremia, Confusion, Nasal bone fracture Condition: Fair
[2024-06-05 01:40] LABS: BASOPHILS % (AUTO) 0.4 %; EOSINOPHILS % (AUTO) 2.2 %; HCT - HEMATOCRIT 35.9 % (37.0-47.0); HGB - HEMOGLOBIN 11.8 g/dL (12.0-16.0); MEAN CORPUSCULAR HEMOGLOBIN 25.9 pg (27.0-31.0); MEAN CORPUSCULAR HGB CONC 32.9 g/dL (32.0-36.0); MEAN CORPUSCULAR VOLUME 78.9 fL (81.0-99.0); MEAN PLATELET VOLUME 8.7 fL (7.9-10.8); MONOCYTES % (AUTO) 4.1 %; NEUTROPHILS % (AUTO) 87.9 %; PLT - PLATELET COUNT 348 10^3/uL (130-450); RED BLOOD COUNT 4.55 10^6/uL (4.20-5.40); RED CELL DISTRIBUTION WIDTH 16.6 % (12.0-15.0); WHITE BLOOD COUNT 14.3 x10^3/uL (4.8-10.8)
[2024-06-05 01:41] LABS: SLIDE REVIEW? Indicated
[2024-06-05 01:42] LABS: ABNORMAL LYMPHS % (MANUAL) 0 %; BAND NEUTROPHILS % (MANUAL) 0 %
[2024-06-05] MEDS: SODIUM CHLORIDE 0.9% 1,000 ML IV STA (01:44)
[2024-06-05] MEDS ORDERED: iohexoL-300 100 ML VIAL ONE (01:45)
[2024-06-05 01:58] LABS: ETOH - ETHANOL < 10.0 mg/dL; LIPASE 33 U/L (11-82)
[2024-06-05 02:04] LABS: ALBUMIN 3.5 g/dL (3.2-5.5); ALBUMIN/GLOBULIN RATIO 0.9 (1.0-2.2); ALKALINE PHOSPHATASE 89 IU/L (42-121); ALT ALANINE AMINOTRANSFERASE 27 IU/L (10-60); AST ASPARTATE AMINOTRANSFERASE 33 IU/L (10-42); BILIRUBIN,TOTAL 0.8 mg/dL (0.2-1.0); BUN - BLOOD UREA NITROGEN 5 mg/dL (6-20); CALCIUM 8.7 mg/dL (8.5-10.3); CARBON DIOXIDE - CO2 21 mmol/L (21-32); CHLORIDE 82 mmol/L (101-111); CREATININE 0.2 mg/dL (0.6-1.3); GFR - MDRD 359 (>89); GLUCOSE 144 mg/dL (74-104); POTASSIUM 3.6 mmol/L (3.5-4.5); SODIUM 115 mmol/L (135-145); TOTAL PROTEIN 7.2 g/dL (6.4-8.9)
[2024-06-05 02:20] LABS: LYMPHOCYTES # (MANUAL) 1.1 10^3/uL (1.5-3.5); LYMPHOCYTES % (MANUAL) 8 %; MONOCYTES # (MANUAL) 0.1 10^3/uL (0.0-1.0); PLATELET MORPHOLOGY NORMAL APPEARANCE (NORMAL); RBC MORPHOLOGY (MULTIPLE) NORMAL APPEARANCE (NORMAL)
[2024-06-05 02:21] LABS: DIFFERENTIAL COMMENT MANUAL DIFFERENTIAL; PLATELET ESTIMATE, MANUAL NORMAL (130-450,000) (NORMAL); WBC MORPHOLOGY (MULTIPLE) NORMAL APPEARANCE (NORMAL)
[2024-06-05] MEDS: DEXTROSE 5%-0.9% NACL 1,000 ML IV STA (02:49)
[2024-06-05 02:52] LABS: BILIRUBIN,URINE NEGATIVE (NEGATIVE); GLUCOSE, URINE (UA) NEGATIVE (NEGATIVE); KETONES,URINE (UA) 40 mg/dL (NEGATIVE); LEUKOCYTE ESTERASE, URINE TRACE (NEGATIVE); NITRITE,URINE NEGATIVE (NEGATIVE); OCCULT BLOOD,URINE TRACE-INTA (NEGATIVE); PROTEIN,URINE 30 mg/dL (NEGATIVE); UROBILINOGEN,URINE 0.2 (NORMAL) E.U./dL (NORMAL)
[2024-06-05 02:55] LABS: CLARITY,URINE CLEAR (CLEAR)
[2024-06-05 03:02] LABS: BACTERIA,URINE Few /HPF (None Seen); RBC,URINE 0-5 /HPF (0-5); SQUAMOUS EPITHELIAL CELL,UR MOD Squamous (<= Few); WBC,URINE 0-3 /HPF (0-5)
[2024-06-05 03:03] LABS: AMPHETAMINE SCREEN,URINE NEGATIVE (NEGATIVE); BARBITURATE SCREEN,UR POSITIVE (NEGATIVE); BENZODIAZEPINES SCREEN, URINE NEGATIVE (NEGATIVE); BUPRENORPHINE SCREEN, URINE NEGATIVE (NEGATIVE); COCAINE SCREEN URINE NEGATIVE (NEGATIVE); METHADONE SCREEN, URINE NEGATIVE (NEGATIVE); METHAMPHETAMINES SCREEN, URINE NEGATIVE (NEGATIVE); OPIATE SCREEN, URINE NEGATIVE (NEGATIVE); OXYCODONE SCREEN, URINE NEGATIVE (NEGATIVE); THC CANNABINOID SCREEN, URINE NEGATIVE (NEGATIVE); TRICYCLIC ANTIDEPRESSANT,URINE NEGATIVE (NEGATIVE)
[2024-06-05] MEDS: iohexoL-300 100 ML VIAL IVP ONE (05:40)
[2024-06-05] MEDS ORDERED: SODIUM CHLORIDE FLUSH 0.9% 10 ML SYRINGE IVP PRN (06:41)
[2024-06-05] MEDS ORDERED: ONDANSETRON ODT 4 MG TABLET TL PRN (06:41)
[2024-06-05] MEDS ORDERED: LORazepam 1 MG TABLET PO PRN (06:45)
--- NOTE | 2024-06-05 07:17 | CT Report ---
PROCEDURE: Abdomen/Pelvis W INDICATIONS: Abdominal trauma, blunt CONTRAST: 100 ML OMNI 300 TECHNIQUE: After the administration of intravenous contrast, a CT scan of the abdomen and pelvis was performed. Images were recorded and evaluated at appropriate window settings. Reformats: coronal and sagittal. F or radiation dose reduction, the following was used: automated exposure control, adjustment of mA and /or kV according to patient size. COMPARISON: CT abdomen pelvis 03/01/2018 FINDINGS: Image quality: Diagnostic. Lower chest: Unremarkable. Liver: Subcentimeter hypoattenuating liver lesions, too small to characterize by CT. Gallbladder: No radiopaque stones or wall thickening. Biliary tree: No intrahepatic dilation. Common bile duct is dilated up to 1.1 cm, not significantly c hanged since prior CT 03/01/2018 Spleen: No splenomegaly. Pancreas: No pancreatic ductal dilation. Adrenals: No adrenal nodule. Kidneys and ureters: No hydronephrosis. No renal cystic lesion which requires follow up. No solid mas s. Stomach, bowel and peritoneum: No gastric or small bowel dilation. No abnormal wall thickening. No pa thologic free fluid. Lymph nodes: No central or retroperitoneal adenopathy. Vessels: No infrarenal aortic aneurysm. Patent portal vein. PELVIS Reproductive organs: Unremarkable. Bladder: No abnormal wall thickening, accounting for underdistention. Pelvic lymph nodes: No pelvic adenopathy by size criteria. Bones: No aggressive osseous abnormality. Other: No significant ventral or inguinal hernia. IMPRESSION: Dilated common bile duct measuring up to 1.1 cm, stable since 2018. No choledocholithiasis visualized . Remainder of exam is unremarkable. Findings are concordant with preliminary interpretation provided by [facility]. Reviewed by: Elvi Le MD, PhD on 06/05/2024 7:15 AM PDT Approved by: Elvi Le MD, PhD on 06/05/2024 7:15 AM PDT Station ID: [id number]
[2024-06-05 07:19] LABS: CALCIUM 8.7 mg/dL (8.5-10.3); CREATININE 0.2 mg/dL (0.6-1.3); POTASSIUM 3.1 mmol/L (3.5-4.5)
--- NOTE | 2024-06-05 07:19 | CT Report ---
PROCEDURE: Cervical Spine WO INDICATIONS: Neck trauma, midline tenderness TECHNIQUE: Noncontrast 3 mm thick sections acquired from the skull base to the T4 level. Sagittal and coronal r eformats were then constructed. For radiation dose reduction, the following was used: automated exp osure control, adjustment of mA and/or kV according to patient size. COMPARISON: CT cervical spine 07/08/2021. FINDINGS: Image quality: Degraded by patient motion artifact. Bones: No fractures or dislocations. Visualized superior ribs are intact. Moderate multilevel dege nerative changes. Soft tissues: Prevertebral soft tissues are normal in thickness. No paravertebral hematomas. No ap ical pneumothoraces. IMPRESSION: No acute, displaced fracture or traumatic subluxation. Findings are concordant with preliminary interpretation provided by [facility]. Reviewed by: Elvi Le MD, PhD on 06/05/2024 7:17 AM PDT Approved by: Elvi Le MD, PhD on 06/05/2024 7:17 AM PDT Station ID: [id number]
[2024-06-05] MEDS: SODIUM CHLORIDE 0.9% 1,000 ML IV SCH ×2 (07:22→18:30)
--- NOTE | 2024-06-05 07:29 | CT Report ---
PROCEDURE: Chest W INDICATIONS: Chest trauma, blunt, high energy CONTRAST: 100 ML OMNI 300 TECHNIQUE: After the administration of intravenous contrast, a CT scan of the chest was performed. Images were recorded and evaluated at appropriate window settings. Reformats: axial MIP of the chest, coronal and sagittal. For radiation dose reduction, the following was used: automated exposure control, adjustme nt of mA and/or kV according to patient size. COMPARISON: None. FINDINGS: Image quality: Mildly degraded by patient motion artifact. Chest wall and lower neck: No thyroid nodule which requires sonographic follow up. No breast mass. No axillary or supraclavicular adenopathy by size. Lungs and pleura: No pleural effusions. No pneumothorax. Subsegmental atelectasis. There is smooth i nterlobular septal thickening predominantly in upper lobes which may represent mild pulmonary edema. Mild centrilobular emphysema. Scattered solid pulmonary nodules measuring less than 6 mm, for example a 5 mm nodule in the right upper lobe (4/41, MIP image 58). Mediastinum: Heart size is normal. No pericardial effusion. No large vessel abnormality. Enlarged mc tral lymph nodes, for example subcarinal lymph node measuring 1.4 x 1.5 cm (2/41 and subaortic lymph node measuring 1.4 cm in short axis (2/37). Bones: No aggressive osseous abnormality. Healing sternal and left rib fractures. No acute osseous abnormality. Degenerative changes of the visualized spine. Upper Abdomen: Separately dictated. IMPRESSION: Smooth interlobular septal thickening is favored represent mild pulmonary edema. No focal dense airsp sarah consolidation. Scattered solid pulmonary nodules less than 6 mm. Chest in 12 months to demonstrate stability per Fle ischner Society guidelines. Mediastinal lymphadenopathy. Attention on follow-up imaging. Findings are concordant with preliminary interpretation provided by [facility]. Reviewed by: Elvi Le MD, PhD on 06/05/2024 7:28 AM PDT Approved by: Elvi Le MD, PhD on 06/05/2024 7:28 AM PDT Station ID: [id number]
[2024-06-05 07:30] LABS: CHOL/HDL RATIO 2.4 (<4.4); CHOLESTEROL 160 mg/dL; HDL CHOLESTEROL 67 mg/dL; LDL CHOLESTEROL,CALCULATED 79 mg/dL; LDL/HDL RATIO 1.2 (<4.4); TRIGLYCERIDES 70 mg/dL; VLDL CHOLESTEROL 14 mg/dL
[2024-06-05 07:45] LABS: THYROID STIMULATING HORMONE 4.89 uIU/mL (0.34-5.60)
--- NOTE | 2024-06-05 07:54 | CT Report ---
PROCEDURE: Head WO INDICATIONS: Head trauma, mod-severe TECHNIQUE: Noncontrast 4.5 mm thick angled axial sections acquired from the foramen magnum to the vertex. For r adiation dose reduction, the following was used: automated exposure control, adjustment of mA and/or kV according to patient size. COMPARISON: CT head 08/13/2023. FINDINGS: Image quality: Diagnostic. CSF spaces: Basal cisterns are patent. No extra-axial fluid collections. Ventricles are normal in size and shape. Brain: No midline shift. No intracranial masses or hemorrhage. Benoit-white matter interface is norm al. Mild periventricular and deep white matter hypodensities, nonspecific but favored to represent c hronic microvascular changes. Skull and face: Right nasal bone fracture, new since prior head CT 08/13/2023, however appears to be chronic given lack of surrounding soft tissue swelling. Calvarium and remainder of visualized facial bones are intact, without suspicious lesions. Sinuses: Right maxillary sinus mucus retention cyst. Remainder of visualized sinuses and mastoids are clear. IMPRESSION: No acute intracranial pathology. Right nasal bone fracture, new since 08/13/2023, however appears to be chronic given lack of surround ing soft tissue swelling. Recommend correlation with point tenderness. Findings are concordant with preliminary interpretation provided by [facility]. Reviewed by: Elvi Le MD, PhD on 06/05/2024 7:52 AM PDT Approved by: Elvi Le MD, PhD on 06/05/2024 7:52 AM PDT Station ID: [id number]
--- NOTE | 2024-06-05 07:57 | CT Report ---
PROCEDURE: Maxillofacial WO INDICATIONS: s/p fall TECHNIQUE: Noncontrast 1.5 mm thick axial images acquired from the mandible through the frontal sinuses, with co todd and sagittal reformatting. For radiation dose reduction, the following was used: automated ex posure control, adjustment of mA and/or kV according to patient size. COMPARISON: Same day CT had 2023, CT head 08/13/2023. FINDINGS: Image quality: Diagnostic. Bones and teeth: Orbital perry are intact. Sinus perry show no fracture or deformity. Right nasal bone fracture. Nasal septum are intact. Visualized portions of the mandible demonstrate no fractures or subluxation. Zygomatic arches are intact. Pterygoid plates are intact. Visualized portions of the skull base and auditory canals are intact. Sinuses: Partial opacification of the right maxillary sinus. Mastoid air cells are aerated. Soft tissues: Prominent laceration anterior to the chin. No edema, masses, or fluid collections. No enlarged lymph nodes. Vascular: Visualized vascular structures appear normal in the absence of contrast. Bony vascular fo ramina and canals are intact. IMPRESSION: Right nasal bone fracture. Chin laceration. Findings are concordant with preliminary interpretation provided by [facility]. Reviewed by: Elvi Le MD, PhD on 06/05/2024 7:55 AM PDT Approved by: Elvi Le MD, PhD on 06/05/2024 7:55 AM PDT Station ID: [id number]
--- NOTE | 2024-06-05 08:57 | PHARMACY PROGRESS NOTE ---
- Best Possible Medication History Admit Date and Time: 06/05/24 0641 Processed by: Nursing Medications reviewed in ED?: Yes Patient Interview: Pt unable to participate Secondary Source(s): Prescription bottles As the person ultimately responsible for medication therapy, providers are able to order a medication from an existing home medication list in [facility] via the "Reconcile Routine" prior to Confirmation of that medication by pharmacy retail support specialist. Such practice is discouraged except when the physician, in their clinical judgment, deems that a medical need exists for a medication without regard to previous use.
[2024-06-05] MEDS: PRENATAL VITAMIN TABLET PO SCH (09:45)
[2024-06-05] MEDS: POTASSIUM CHLORIDE 20 MEQ TABLET PO SCH (09:45)
[2024-06-05] MEDS: THIAMINE 100 MG TABLET PO SCH (09:46)
[2024-06-05] MEDS: FAMOTIDINE 20 MG/2 ML VIAL IVP SCH (09:46)
[2024-06-05] MEDS: SODIUM CHLORIDE FLUSH 0.9% 10 ML SYRINGE IVP SCH (09:46)
[2024-06-05 10:00] LABS: MAGNESIUM 1.5 mg/dL (1.7-2.3); PHOSPHORUS 3.8 mg/dL (2.5-5.0)
[2024-06-05 10:09] LABS: CALCIUM, IONIZED 1.09 mmol/L (1.15-1.33); VBG PH 7.437 (7.31-7.41)
[2024-06-05] MEDS: ACETAMINOPHEN 325 MG TABLET PO PRN (11:56)
[2024-06-05] MEDS: INSULIN LISPRO 300 UNIT/3 ML PEN SUBQ SCH (11:56)
[2024-06-05] MEDS ORDERED: NYSTATIN CREAM 15 GM TUBE TOP SCH (12:00)
[2024-06-05] MEDS: NYSTATIN POWDER 15 GM TOP SCH (13:35)
[2024-06-05] MEDS: CALCIUM CARBONATE CHEW 500 MG TABLET PO SCH (13:35)
[2024-06-05] MEDS: MAGNESIUM OXIDE 400 MG TABLET PO ONE ×2 (13:35→22:37)
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
[2024-06-05 13:54] LABS: ESTIMATED AVERAGE GLUCOSE 97 mg/dL (70-100)
[2024-06-05] MEDS: oxyCODONE 5 MG TABLET PO PRN (18:27)
[2024-06-05 19:14] LABS: INR 1.2 (0.8-1.2); PT - PROTHROMBIN TIME 12.7 secs (9.9-12.6)
[2024-06-05] MEDS: ATORVASTATIN 10 MG TABLET PO SCH (21:03)
--- NOTE | 2024-06-05 21:40 | CONSULTATION NOTE ---
Surgery Consult - Admit Date Hospital Admission Date: 06/05/24 - Consult Date Consult Date: 06/05/24 Requesting Provider: Avalos - Home Meds/Allergies Home Medications: Patient History Medication Instructions Recorded Confirmed DULoxetine [Cymbalta] 60 mg PO DAILY 11/21/23 06/05/24 Simvastatin [Zocor] 20 mg PO HS 11/21/23 06/05/24 metFORMIN [Glucophage] 500 mg PO BID 11/21/23 06/05/24 Gabapentin [Neurontin] 600 mg PO TID 06/05/24 06/05/24 Allergies/Adverse Reactions: Allergies Allergy/AdvReac Type Severity Reaction Status Date / Time Sulfa (Sulfonamide Allergy Mild oral Verified 11/21/23 16:34 Antibiotics) blisters - Vital Signs Vital Signs: Last Vital Signs Temp 98.1 F 06/05/24 20:00 Pulse 90 06/05/24 21:00 Resp 19 06/05/24 21:00 BP 119/98 H 06/05/24 21:00 Pulse Ox 98 06/05/24 21:00 O2 Flow Rate 2 06/05/24 21:00 Intake & Output: Intake & Output 06/02/24 06/03/24 06/04/24 06/05/24 23:59 23:59 23:59 23:59 Intake Total 1741.667 Output Total 2400 Balance -658.333 - Lab Results Result Diagrams: 06/05/24 01:36 06/05/24 19:01 - Consultation Note Consultation Note: I am asked to provide an opinion on how to manage a chronic eschar on the skin under the chin. The patient suffered a GLF in the recent past as a result of chronic alcohol use. She suffered some type of traumatic laceration or avulsion, or abrasion to the skin in the submental region of the head & neck. Over time she developed an eschar within the wound which has become large, firmly attached to the underlying tissue, and painful. It is irregular in shape and 3 cm x 2 cm in width and length and perhaps 1 cm in thickness. The skin surrounding the eschar is healthy but the eschar is firmly attached to the underlying tissue and very painful to palpate. I do not appreciate the injury extending into the oral cavity on physical examination nor is there an associated infection or abscess clearly seen on physical examination or imaging. The CT facial images indicate that the underlying mandible is intact and a djacent to the eschar. Assessment: 1) Chronic eschar in submental region of the head & neck without associated infection. 2) Chronic alcoholism 3) Hyponatremia Recommendation: 1) There is no indication for immediate surgery 2) Soaking the area in warm water using a warm, damp wash cloth several times a day may loosen the eschar in such a way as to permit secondary wound healing as the eschar slowly elevates off of the viable undersurface. Hydrogen peroxide can be added to the water in a 50/50 mix to accelerate debridement. Wound care consultation may provide additional ideas for medical debridement 3) Surgical excision is an option but this will leave a large, full thickness skin defect that may require a skin graft. 4) I think we should start with non-surgical intervention first and offer surgery either as an in-patient or out-patient pending the success of the non- operative measures. Bruce Dixon MD, [facility] General Surgery Service
[2024-06-05 21:54] LABS: CALCIUM, IONIZED 1.19 mmol/L (1.15-1.33); VBG PH 7.422 (7.31-7.41)
[2024-06-05 22:06] LABS: MAGNESIUM 1.6 mg/dL (1.7-2.3); PHOSPHORUS 3.9 mg/dL (2.5-5.0); POTASSIUM 3.7 mmol/L (3.5-4.5)
[2024-06-05] MEDS: POTASSIUM CHLORIDE 20 MEQ TABLET PO ONE (22:37)
[2024-06-06 04:37] LABS: BASOPHILS # (AUTO) 0.1 10^3/uL (0.0-0.1); EOSINOPHILS # (AUTO) 0.2 10^3/uL (0.0-0.7); EOSINOPHILS % (AUTO) 3.4 %; HCT - HEMATOCRIT 32.9 % (37.0-47.0); LYMPHOCYTES # (AUTO) 1.6 10^3/uL (1.5-3.5); LYMPHOCYTES % (AUTO) 25.4 %; MEAN CORPUSCULAR HEMOGLOBIN 25.4 pg (27.0-31.0); MEAN CORPUSCULAR HGB CONC 30.4 g/dL (32.0-36.0); MEAN CORPUSCULAR VOLUME 83.5 fL (81.0-99.0); MONOCYTES # (AUTO) 0.3 10^3/uL (0.0-1.0); MONOCYTES % (AUTO) 5.5 %; NEUTROPHILS % (AUTO) 64.4 %; PLT - PLATELET COUNT 305 10^3/uL (130-450); RED BLOOD COUNT 3.94 10^6/uL (4.20-5.40); RED CELL DISTRIBUTION WIDTH 17.4 % (12.0-15.0); WHITE BLOOD COUNT 6.2 x10^3/uL (4.8-10.8)
[2024-06-06 04:38] LABS: CALCIUM, IONIZED 1.06 mmol/L (1.15-1.33); VBG PH 7.442 (7.31-7.41)
[2024-06-06 04:50] LABS: MAGNESIUM 1.5 mg/dL (1.7-2.3)
[2024-06-06 04:56] LABS: ALBUMIN 3.1 g/dL (3.2-5.5); BILIRUBIN,TOTAL 0.4 mg/dL (0.2-1.0); CALCIUM 8.9 mg/dL (8.5-10.3); CREATININE 0.3 mg/dL (0.6-1.3); PHOSPHORUS 3.8 mg/dL (2.5-5.0); POTASSIUM 3.8 mmol/L (3.5-4.5); TOTAL PROTEIN 6.1 g/dL (6.4-8.9)
[2024-06-06] MEDS: POTASSIUM CHLORIDE 20 MEQ TABLET PO ONE ×2 (06:23→14:59)
[2024-06-06] MEDS: MAGNESIUM OXIDE 400 MG TABLET PO ONE (06:23)
[2024-06-06] MEDS: CALCIUM CARBONATE CHEW 500 MG TABLET PO SCH (06:23)
[2024-06-06] MEDS: DEXTROSE 5% 1,000 ML IV SCH (08:40)
[2024-06-06] MEDS: THIAMINE INJ 250 MG in SODIUM CHLORIDE 0.9% 50 ML IV ONE (08:41)
[2024-06-06] MEDS: amLODIPine 5 MG TABLET PO SCH (08:42)
--- NOTE | 2024-06-06 09:16 | PROVIDER PROGRESS NOTE ---
Subjective - Prog Note Date Prog Note Date: 06/06/24 Prog Note Time: 09:16 - Subjective Pt reports feeling: Improved Subjective: She remains disoriented this morning and frequently has a tangential thought process. She is unable to tell me exactly where she is or what year it is, though she understands she is in the hospital. She denies any specific somatic complaint however she wonders if she was hallucinating. When asked why she thought this, she indicates that she heard staff laughing in the hallway but she is unclear why that made her think it was a hallucination. Objective - Vital Signs/Intake & Output Reviewed Vital Signs: Yes Vital Signs: Vital Signs Temp Pulse Resp BP Pulse Ox O2 Flow Rate 06/06/24 09:00 89 21 157/83 H 98 06/06/24 08:00 36.7 C 74 19 160/91 H 100 2 06/06/24 07:00 79 22 164/89 H 99 2 06/06/24 06:00 71 20 164/77 H 98 Intake & Output: Intake & Output 06/03/24 06/04/24 06/05/24 06/06/24 23:59 23:59 23:59 23:59 Intake Total 9274.541 5384.667 Output Total 2400 950 Balance -658.333 674.667 - Objective General Appearance: positive: Other (She is in no acute distress but she does look chronically ill, older than stated age. She has multiple ecchymoses on her face as described below.) Eyes Bilateral: positive: Other (Sclera are anicteric but right sided conjunctival hemorrhages noted. She has "raccoon eyes" with periorbital ecchymoses bilaterally.) ENT: positive: Other (Multiple periorbital ecchymosis as well as maxillary ecchymosis and a large eschar on her lower chin.) Neck: positive: Nml inspection, Thyroid nml, No JVD, Trachea midline Respiratory: positive: No respiratory distress, Breath sounds nml. negative: Wheezes, Rales, Rhonchi Cardiovascular: positive: Regular rate & rhythm, No murmur, No gallop Peripheral Pulses: 2+ Dorsalis pedis (R), 2+ Dorsalis pedis (L) Abdomen: positive: Non-tender, No organomegaly, Nml bowel sounds, No distention Skin: positive: Warm, Dry, Other (Multiple ecchymoses on extremities.) Neurologic/Psychiatric: positive: Other (She is alert and oriented to name and year but disoriented to place and situation. She has no focal neurologic de ficit, motor strength 5/5 in all 4 extremities. Cranial nerves II through XII are intact.) - Lab Results Fish Bones: 06/06/24 04:19 06/06/24 04:19 Other Labs: Lab Results x24hrs 06/06/24 06/06/24 06/06/24 Range/Units 07:33 04:19 04:19 WBC (4.8-10.8) x10^3/uL RBC (4.20-5.40) 10^6/uL Hgb (12.0-16.0) g/dL Hct (37.0-47.0) % MCV (81.0-99.0) fL MCH (27.0-31.0) pg MCHC (32.0-36.0) g/dL RDW (12.0-15.0) % Plt Count (130-450) 10^3/uL MPV (7.9-10.8) fL Neut # (Auto) (1.5-6.6) 10^3/uL Lymph # (Auto) (1.5-3.5) 10^3/uL [place] # (Auto) (0.0-1.0) 10^3/uL Eos # (Auto) (0.0-0.7) 10^3/uL Baso # (Auto) (0.0-0.1) 10^3/uL Absolute Nucleated RBC x10^3/uL Nucleated RBC % /100WBC PT (9.9-12.6) secs INR (0.8-1.2) VBG pH 7.442 H (7.31-7.41) Ionized Calcium 1.06 L (1.15-1.33) mmol/L Sodium 127 L (135-145) mmol/L Potassium 3.8 (3.5-4.5) mmol/L Chloride 95 L (101-111) mmol/L Carbon Dioxide 26 (21-32) mmol/L Anion Gap 6.0 (6-13) BUN 5 L (6-20) mg/dL Creatinine 0.3 L (0.6-1.3) mg/dL Estimated GFR (MDRD) 225 (>89) Glucose 97 (74-104) mg/dL POC Whole Bld Glucose 98 (70 - 100) mg/dL Estimat Average Glucose (70-100) mg/dL Hemoglobin A1c % (4.27-6.07) % Calcium 8.9 (8.5-10.3) mg/dL Phosphorus 3.8 (2.5-5.0) mg/dL Magnesium 1.5 L (1.7-2.3) mg/dL Total Bilirubin 0.4 (0.2-1.0) mg/dL AST 30 (10-42) IU/L ALT 23 (10-60) IU/L Alkaline Phosphatase 72 (42-121) IU/L Total Protein 6.1 L (6.4-8.9) g/dL Albumin 3.1 L (3.2-5.5) g/dL Globulin 3.0 (2.1-4.2) g/dL Albumin/Globulin Ratio 1.0 (1.0-2.2) Nasal Screen MRSA (PCR) (NEGATIVE) 06/06/24 06/05/24 06/05/24 Range/Units 04:19 21:44 21:44 WBC 6.2 (4.8-10.8) x10^3/uL RBC 3.94 L (4.20-5.40) 10^6/uL Hgb 10.0 L (12.0-16.0) g/dL Hct 32.9 L (37.0-47.0) % MCV 83.5 (81.0-99.0) fL MCH 25.4 L (27.0-31.0) pg MCHC 30.4 L (32.0-36.0) g/dL RDW 17.4 H (12.0-15.0) % Plt Count 305 (130-450) 10^3/uL MPV 9.0 (7.9-10.8) fL Neut # (Auto) 4.0 (1.5-6.6) 10^3/uL Lymph # (Auto) 1.6 (1.5-3.5) 10^3/uL [place] # (Auto) 0.3 (0.0-1.0) 10^3/uL Eos # (Auto) 0.2 (0.0-0.7) 10^3/uL Baso # (Auto) 0.1 (0.0-0.1) 10^3/uL Absolute Nucleated RBC 0.00 x10^3/uL Nucleated RBC % 0.0 /100WBC PT (9.9-12.6) secs INR (0.8-1.2) VBG pH 7.422 H (7.31-7.41) Ionized Calcium 1.19 (1.15-1.33) mmol/L Sodium (135-145) mmol/L Potassium 3.7 (3.5-4.5) mmol/L Chloride (101-111) mmol/L Carbon Dioxide (21-32) mmol/L Anion Gap (6-13) BUN (6-20) mg/dL Creatinine (0.6-1.3) mg/dL Estimated GFR (MDRD) (>89) Glucose (74-104) mg/dL POC Whole Bld Glucose (70 - 100) mg/dL Estimat Average Glucose (70-100) mg/dL Hemoglobin A1c % (4.27-6.07) % Calcium (8.5-10.3) mg/dL Phosphorus 3.9 (2.5-5.0) mg/dL Magnesium 1.6 L (1.7-2.3) mg/dL Total Bilirubin (0.2-1.0) mg/dL AST (10-42) IU/L ALT (10-60) IU/L Alkaline Phosphatase (42-121) IU/L Total Protein (6.4-8.9) g/dL Albumin (3.2-5.5) g/dL Globulin (2.1-4.2) g/dL Albumin/Globulin Ratio (1.0-2.2) Nasal Screen MRSA (PCR) (NEGATIVE) 06/05/24 06/05/24 06/05/24 Range/Units 20:14 19:01 19:01 WBC (4.8-10.8) x10^3/uL RBC (4.20-5.40) 10^6/uL Hgb (12.0-16.0) g/dL Hct (37.0-47.0) % MCV (81.0-99.0) fL MCH (27.0-31.0) pg MCHC (32.0-36.0) g/dL RDW (12.0-15.0) % Plt Count (130-450) 10^3/uL MPV (7.9-10.8) fL Neut # (Auto) (1.5-6.6) 10^3/uL Lymph # (Auto) (1.5-3.5) 10^3/uL [place] # (Auto) (0.0-1.0) 10^3/uL Eos # (Auto) (0.0-0.7) 10^3/uL Baso # (Auto) (0.0-0.1) 10^3/uL Absolute Nucleated RBC x10^3/uL Nucleated RBC % /100WBC PT 12.7 H (9.9-12.6) secs INR 1.2 (0.8-1.2) VBG pH (7.31-7.41) Ionized Calcium (1.15-1.33) mmol/L Sodium 125 L (135-145) mmol/L Potassium (3.5-4.5) mmol/L Chloride (101-111) mmol/L Carbon Dioxide (21-32) mmol/L Anion Gap (6-13) BUN (6-20) mg/dL Creatinine (0.6-1.3) mg/dL Estimated GFR (MDRD) (>89) Glucose (74-104) mg/dL POC Whole Bld Glucose 116 H (70 - 100) mg/dL Estimat Average Glucose (70-100) mg/dL Hemoglobin A1c % (4.27-6.07) % Calcium (8.5-10.3) mg/dL Phosphorus (2.5-5.0) mg/dL Magnesium (1.7-2.3) mg/dL Total Bilirubin (0.2-1.0) mg/dL AST (10-42) IU/L ALT (10-60) IU/L Alkaline Phosphatase (42-121) IU/L Total Protein (6.4-8.9) g/dL Albumin (3.2-5.5) g/dL Globulin (2.1-4.2) g/dL Albumin/Globulin Ratio (1.0-2.2) Nasal Screen MRSA (PCR) (NEGATIVE) 06/05/24 06/05/24 06/05/24 Range/Units 16:59 13:09 11:47 WBC (4.8-10.8) x10^3/uL RBC (4.20-5.40) 10^6/uL Hgb (12.0-16.0) g/dL Hct (37.0-47.0) % MCV (81.0-99.0) fL MCH (27.0-31.0) pg MCHC (32.0-36.0) g/dL RDW (12.0-15.0) % Plt Count (130-450) 10^3/uL MPV (7.9-10.8) fL Neut # (Auto) (1.5-6.6) 10^3/uL Lymph # (Auto) (1.5-3.5) 10^3/uL [place] # (Auto) (0.0-1.0) 10^3/uL Eos # (Auto) (0.0-0.7) 10^3/uL Baso # (Auto) (0.0-0.1) 10^3/uL Absolute Nucleated RBC x10^3/uL Nucleated RBC % /100WBC PT (9.9-12.6) secs INR (0.8-1.2) VBG pH (7.31-7.41) Ionized Calcium (1.15-1.33) mmol/L Sodium 121 L (135-145) mmol/L Potassium (3.5-4.5) mmol/L Chloride (101-111) mmol/L Carbon Dioxide (21-32) mmol/L Anion Gap (6-13) BUN (6-20) mg/dL Creatinine (0.6-1.3) mg/dL Estimated GFR (MDRD) (>89) Glucose (74-104) mg/dL POC Whole Bld Glucose 94 149 H (70 - 100) mg/dL Estimat Average Glucose (70-100) mg/dL Hemoglobin A1c % (4.27-6.07) % Calcium (8.5-10.3) mg/dL Phosphorus (2.5-5.0) mg/dL Magnesium (1.7-2.3) mg/dL Total Bilirubin (0.2-1.0) mg/dL AST (10-42) IU/L ALT (10-60) IU/L Alkaline Phosphatase (42-121) IU/L Total Protein (6.4-8.9) g/dL Albumin (3.2-5.5) g/dL Globulin (2.1-4.2) g/dL Albumin/Globulin Ratio (1.0-2.2) Nasal Screen MRSA (PCR) (NEGATIVE) 06/05/24 06/05/24 06/05/24 Range/Units 09:42 09:42 08:30 WBC (4.8-10.8) x10^3/uL RBC (4.20-5.40) 10^6/uL Hgb (12.0-16.0) g/dL Hct (37.0-47.0) % MCV (81.0-99.0) fL MCH (27.0-31.0) pg MCHC (32.0-36.0) g/dL RDW (12.0-15.0) % Plt Count (130-450) 10^3/uL MPV (7.9-10.8) fL Neut # (Auto) (1.5-6.6) 10^3/uL Lymph # (Auto) (1.5-3.5) 10^3/uL [place] # (Auto) (0.0-1.0) 10^3/uL Eos # (Auto) (0.0-0.7) 10^3/uL Baso # (Auto) (0.0-0.1) 10^3/uL Absolute Nucleated RBC x10^3/uL Nucleated RBC % /100WBC PT (9.9-12.6) secs INR (0.8-1.2) VBG pH 7.437 H (7.31-7.41) Ionized Calcium 1.09 L (1.15-1.33) mmol/L Sodium (135-145) mmol/L Potassium (3.5-4.5) mmol/L Chloride (101-111) mmol/L Carbon Dioxide (21-32) mmol/L Anion Gap (6-13) BUN (6-20) mg/dL Creatinine (0.6-1.3) mg/dL Estimated GFR (MDRD) (>89) Glucose (74-104) mg/dL POC Whole Bld Glucose (70 - 100) mg/dL Estimat Average Glucose (70-100) mg/dL Hemoglobin A1c % (4.27-6.07) % Calcium (8.5-10.3) mg/dL Phosphorus 3.8 (2.5-5.0) mg/dL Magnesium 1.5 L (1.7-2.3) mg/dL Total Bilirubin (0.2-1.0) mg/dL AST (10-42) IU/L ALT (10-60) IU/L Alkaline Phosphatase (42-121) IU/L Total Protein (6.4-8.9) g/dL Albumin (3.2-5.5) g/dL Globulin (2.1-4.2) g/dL Albumin/Globulin Ratio (1.0-2.2) Nasal Screen MRSA (PCR) NEGATIVE (NEGATIVE) 06/05/24 Range/Units 06:47 WBC (4.8-10.8) x10^3/uL RBC (4.20-5.40) 10^6/uL Hgb (12.0-16.0) g/dL Hct (37.0-47.0) % MCV (81.0-99.0) fL MCH (27.0-31.0) pg MCHC (32.0-36.0) g/dL RDW (12.0-15.0) % Plt Count (130-450) 10^3/uL MPV (7.9-10.8) fL Neut # (Auto) (1.5-6.6) 10^3/uL Lymph # (Auto) (1.5-3.5) 10^3/uL [place] # (Auto) (0.0-1.0) 10^3/uL Eos # (Auto) (0.0-0.7) 10^3/uL Baso # (Auto) (0.0-0.1) 10^3/uL Absolute Nucleated RBC x10^3/uL Nucleated RBC % /100WBC PT (9.9-12.6) secs INR (0.8-1.2) VBG pH (7.31-7.41) Ionized Calcium (1.15-1.33) mmol/L Sodium (135-145) mmol/L Potassium (3.5-4.5) mmol/L Chloride (101-111) mmol/L Carbon Dioxide (21-32) mmol/L Anion Gap (6-13) BUN (6-20) mg/dL Creatinine (0.6-1.3) mg/dL Estimated GFR (MDRD) (>89) Glucose (74-104) mg/dL POC Whole Bld Glucose (70 - 100) mg/dL Estimat Average Glucose 97 (70-100) mg/dL Hemoglobin A1c % 5.0 (4.27-6.07) % Calcium (8.5-10.3) mg/dL Phosphorus (2.5-5.0) mg/dL Magnesium (1.7-2.3) mg/dL Total Bilirubin (0.2-1.0) mg/dL AST (10-42) IU/L ALT (10-60) IU/L Alkaline Phosphatase (42-121) IU/L Total Protein (6.4-8.9) g/dL Albumin (3.2-5.5) g/dL Globulin (2.1-4.2) g/dL Albumin/Globulin Ratio (1.0-2.2) Nasal Screen MRSA (PCR) (NEGATIVE) - Diagnostic Imaging Diagnostic Imaging Comments: Abdomen/Pelvis CT: Dilated common bile duct measuring up to 1.1 cm, stable since 2018. No choledocholithiasis visualized. Remainder of exam is unremarkable. Cervical Spine CT: No acute displaced fracture or traumatic subluxation. Chest CT: 1. Smooth interlobular septal thickening is favored to represent a mild pulmonary edema. No focal dense airspace consolidation. 2. Scattered solitary pulmonary nodules less than [address] in 12 months to demonstrate stability per Fleischner Society guidelines. 3. Mediastinal lymphadenopathy. Attention on follow-up images recommended. Head CT: 1. No acute intracranial pathology. 2. Right nasal bone fracture, new since 08/13/2023, however appears to be chronic given lack of surrounding soft tissue swelling. Recommend correlation with point tenderness. Maxillofacial CT: Right nasal bone fracture. Chin laceration. Sepsis Event Note (H) - Evaluation Current Stage of Sepsis: Ruled out Assessment/Plan - Problem List (1) Hyponatremia Impression: On presentation she had a sodium of 115, which is likely secondary to "beer potomania" as she consistently drinks alcohol for most of her caloric intake. -She was given 2 L of normal saline in the emergency department and placed on isotonic normal saline IV fluids overnight. -This morning her sodium was 127 which indicates too rapid of correction. -Will give 1 L of D5W over 4 hours and recheck her sodium this afternoon. -Goal rate of increase is 6 to 8 mEq in 24-hour period. -Continue ICU monitoring for the time being. (2) Alcohol use disorder Impression: She does drink alcohol excessively and has a longstanding history of alcohol abuse with multiple admissions in the past related to this. She has early stages of dementia, which is likely secondary to her chronic alcohol use. -Currently monitoring in the ICU under [facility] protocol as she is at risk for DTs. -Will give IV thiamine 250 mg today and tomorrow, then oral thiamine 100 mg thereafter. -No signs of Wernicke's/Korsakoff syndrome at this time but if she worsens, would increase thiamine dosing appropriately. (3) Nasal bone fracture Impression: Based on images this is most likely chronic in nature. She does have significant bruising on her face however the nose does not appear to be acutely broken. (4) Laceration of chin Impression: She has a large eschar on her chin from the recent fall and probable laceration. -General Surgery is following due to large size of this. Currently recommending local wound care as surgical debridement would likely leave a large wound. (5) Hx of falling Impression: She has a longstanding history of multiple falls, related to her alcohol use and intoxication. -PT/OT is consulted during this hospitalization. (6) DM type 2 (diabetes mellitus, type 2) Impression: She has a reported history of type 2 diabetes and is currently on metformin however her recent A1c was normal. -Monitor while hospitalized and she may need insulin while on IV dextrose. -At discharge, she could probably be taken off of metformin given her normal A1c. (7) Fibromyalgia Impression: Prescribed Cymbalta and gabapentin as an outpatient. Can continue these medications while inpatient. (8) Hypertension Impression: She has a past history noted of hypertension however she has not been prescribed any medications for this recently. -Start amlodipine 5 mg daily due to elevated blood pressure. Qualifiers: Hypertension type: essential hypertension (9) Bipolar affective disorder, depressed Impression: Managed as an outpatient on Depakote and Seroquel. Qualifiers: (10) COPD (chronic obstructive pulmonary disease) with emphysema Impression: No acute issues at this time however she does have chronic hypoxic respiratory failure requiring home supplemental oxygen. -Continue supplemental oxygen and as needed breathing treatments.
[2024-06-06] MEDS: MAGNESIUM SULFATE 2 GRAM 2 GM/50 ML BAG IV ONE (11:03)
[2024-06-06 14:10] LABS: CALCIUM, IONIZED 1.16 mmol/L (1.15-1.33); VBG PH 7.485 (7.31-7.41)
[2024-06-06 14:21] LABS: MAGNESIUM 1.9 mg/dL (1.7-2.3); POTASSIUM 3.9 mmol/L (3.5-4.5)
[2024-06-06] MEDS: MELATONIN 3 MG TABLET PO SCH (20:41)
[2024-06-06] MEDS: FAMOTIDINE 20 MG TABLET PO SCH (20:41)
[2024-06-06 21:48] LABS: POTASSIUM 4.1 mmol/L (3.5-4.5)
--- NOTE | 2024-06-07 07:18 | PROVIDER PROGRESS NOTE ---
Subjective - Prog Note Date Prog Note Date: 06/07/24 Prog Note Time: 07:17 - Subjective Pt reports feeling: Improved Subjective: Overall she is improved today with a better thought process and less tangential speech. She is oriented to year and location but not to month and did not believe me when I said that it was June (she thought it was April). She reports ongoing musculoskeletal pain to her face and upper chest but denies having any dyspnea, cough, nausea, vomiting, diarrhea. Overall no significant signs of alcohol withdrawal at this time. Yesterday she was given D5W to reduce the rate of increase in sodium level. This appropriately decreased her sodium and this morning it has gradually increased to an appropriate level of 130 from the time of admission. Objective - Vital Signs/Intake & Output Reviewed Vital Signs: Yes Vital Signs: Vital Signs Temp Pulse Resp BP Pulse Ox O2 Flow Rate 06/07/24 07:00 79 19 135/72 H 98 2 06/07/24 06:00 80 12 109/61 98 2 06/07/24 05:00 79 11 L 115/60 96 2 06/07/24 04:00 36.8 C 80 14 141/97 H 97 2 Intake & Output: Intake & Output 06/04/24 06/05/24 06/06/24 06/07/24 23:59 23:59 23:59 23:59 Intake Total 9791.812 2315.667 Output Total 2400 3500 100 Balance -740.682 4377.667 -100 - Objective General Appearance: positive: No acute distress, Alert, Other (She appears chronically ill and older than stated age. She has multiple ecchymoses on her face. Overall she has a better thought process compared to yesterday.) Eyes Bilateral: positive: PERRL, EOMI, Other (Right sided conjunctival hemorrhage noted.) ENT: positive: Other (Multiple periorbital ecchymoses as well as maxillary ecchymosis and large eschar on her lower chin.) Neck: positive: Nml inspection, Thyroid nml, No JVD, Trachea midline Respiratory: positive: Chest non-tender, No respiratory distress, Breath sounds nml, Other (Upper chest has diffuse ecchymosis and is tender to palpation). negative: Wheezes, Rales, Rhonchi Cardiovascular: positive: Regular rate & rhythm, No murmur, No gallop Abdomen: positive: Non-tender, No organomegaly, Nml bowel sounds, No distention Skin: positive: Warm, Dry Extremities: positive: No pedal edema Neurologic/Psychiatric: positive: CN's nml (2-12), Motor nml, Sensation nml, Disoriented to time - Lab Results Fish Bones: 06/07/24 07:14 06/07/24 07:14 Other Labs: Lab Results x24hrs 06/06/24 06/06/24 06/06/24 Range/Units 21:28 20:31 16:28 VBG pH (7.31-7.41) Ionized Calcium (1.15-1.33) mmol/L Sodium 123 L (135-145) mmol/L Potassium 4.1 (3.5-4.5) mmol/L POC Whole Bld Glucose 119 H 108 H (70 - 100) mg/dL Magnesium (1.7-2.3) mg/dL 06/06/24 06/06/24 06/06/24 Range/Units 14:05 14:05 14:03 VBG pH 7.485 H (7.31-7.41) Ionized Calcium 1.16 (1.15-1.33) mmol/L Sodium 120 L* (135-145) mmol/L Potassium 3.9 (3.5-4.5) mmol/L POC Whole Bld Glucose (70 - 100) mg/dL Magnesium 1.9 (1.7-2.3) mg/dL 06/06/24 06/06/24 Range/Units 11:29 07:33 VBG pH (7.31-7.41) Ionized Calcium (1.15-1.33) mmol/L Sodium (135-145) mmol/L Potassium (3.5-4.5) mmol/L POC Whole Bld Glucose 139 H 98 (70 - 100) mg/dL Magnesium (1.7-2.3) mg/dL - Diagnostic Imaging Diagnostic Imaging Comments: Abdomen/Pelvis CT: Dilated common bile duct measuring up to 1.1 cm, stable since 2018. No choledocholithiasis visualized. Remainder of exam is unremarkable. Cervical Spine CT: No acute displaced fracture or traumatic subluxation. Chest CT: 1. Smooth interlobular septal thickening is favored to represent a mild pulmonary edema. No focal dense airspace consolidation. 2. Scattered solitary pulmonary nodules less than [address] in 12 months to demonstrate stability per Fleischner Society guidelines. 3. Mediastinal lymphadenopathy. Attention on follow-up images recommended. Head CT: 1. No acute intracranial pathology. 2. Right nasal bone fracture, new since 08/13/2023, however appears to be ch ronic given lack of surrounding soft tissue swelling. Recommend correlation with point tenderness. Maxillofacial CT: Right nasal bone fracture. Chin laceration. Sepsis Event Note (H) - Evaluation Current Stage of Sepsis: Ruled out Assessment/Plan - Problem List (1) Hyponatremia Impression: On presentation she had a sodium of 115, which is likely secondary to "beer potomania" as she consistently drinks alcohol for most of her caloric intake. -She was given 2 L of normal saline in the emergency department. The morning after admission her sodium was 127, which was too rapid of an increase. She was given D5W which decreased the sodium to 120, which has slowly risen to 130 this morning. -Clinically she is improved and no longer requires ICU level of care. -Will remove free water restriction at this time. She does not require any further isotonic fluids or other therapies for her hyponatremia. (2) Alcohol use disorder Impression: She does drink alcohol excessively and has a longstanding history of alcohol abuse with multiple admissions in the past related to this. She has early stages of dementia, which is likely secondary to her chronic alcohol use. -Currently monitoring in the ICU under [facility] protocol as she is at risk for DTs. -Will give IV thiamine 250 mg 06/06 and 06/07, then oral thiamine 100 mg thereafter. -No signs of Wernicke's/Korsakoff syndrome at this time but if she worsens, woul d increase thiamine dosing appropriately. Clinically she appears to be improved from a cognitive standpoint today. (3) Nasal bone fracture Impression: Based on images this is most likely chronic in nature. She does have significant bruising on her face however the nose does not appear to be acutely broken. (4) Laceration of chin Impression: She has a large eschar on her chin from the recent fall and probable laceration. -General Surgery is following due to large size of this. Currently recommending local wound care as surgical debridement would likely leave a large wound. (5) Hx of falling Impression: She has a longstanding history of multiple falls, related to her alcohol use and intoxication. -PT/OT is consulted during this hospitalization. -Currently recommending LTC/memory care for her given her frequent hospitalizations, frequent falls and unsafe living conditions. (6) DM type 2 (diabetes mellitus, type 2) Impression: She has a reported history of type 2 diabetes and is currently on metformin however her recent A1c was normal. -Monitor while hospitalized and she may need insulin while on IV dextrose. -At discharge, she could probably be taken off of metformin given her normal A1c. 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 Can continue these medications while inpatient. (8) Hypertension Impression: She has a past history noted of hypertension however she has not been prescribed any medications for this recently. -Started amlodipine 5 mg daily due to elevated blood pressure. BP is better controlled currently. Qualifiers: Hypertension type: essential hypertension (9) Bipolar affective disorder, depressed Impression: Managed as an outpatient on Depakote and Seroquel. Qualifiers: (10) COPD (chronic obstructive pulmonary disease) with emphysema Impression: No acute issues at this time however she does have chronic hypoxic respiratory failure requiring home supplemental oxygen. -Continue supplemental oxygen and as needed breathing treatments.
[2024-06-07 07:31] LABS: CALCIUM, IONIZED 1.11 mmol/L (1.15-1.33); VBG PH 7.461 (7.31-7.41)
[2024-06-07 07:48] LABS: BASOPHILS % (AUTO) 0.6 %; EOSINOPHILS # (AUTO) 0.3 10^3/uL (0.0-0.7); EOSINOPHILS % (AUTO) 5.2 %; HCT - HEMATOCRIT 32.3 % (37.0-47.0); HGB - HEMOGLOBIN 10.2 g/dL (12.0-16.0); LYMPHOCYTES # (AUTO) 1.1 10^3/uL (1.5-3.5); LYMPHOCYTES % (AUTO) 17.3 %; MEAN CORPUSCULAR HEMOGLOBIN 26.2 pg (27.0-31.0); MEAN CORPUSCULAR HGB CONC 31.6 g/dL (32.0-36.0); MEAN PLATELET VOLUME 8.9 fL (7.9-10.8); MONOCYTES # (AUTO) 0.5 10^3/uL (0.0-1.0); MONOCYTES % (AUTO) 6.9 %; NEUTROPHILS # (AUTO) 4.6 10^3/uL (1.5-6.6); NEUTROPHILS % (AUTO) 69.5 %; PLT - PLATELET COUNT 304 10^3/uL (130-450); RED BLOOD COUNT 3.89 10^6/uL (4.20-5.40); RED CELL DISTRIBUTION WIDTH 17.5 % (12.0-15.0); WHITE BLOOD COUNT 6.5 x10^3/uL (4.8-10.8)
[2024-06-07 07:51] LABS: CALCIUM 8.6 mg/dL (8.5-10.3); CREATININE 0.3 mg/dL (0.6-1.3); MAGNESIUM 1.7 mg/dL (1.7-2.3); PHOSPHORUS 5.1 mg/dL (2.5-5.0); POTASSIUM 4.2 mmol/L (3.5-4.5)
[2024-06-07] MEDS: MAGNESIUM OXIDE 400 MG TABLET PO ONE ×3 (08:58→20:52)
[2024-06-07] MEDS ORDERED: THIAMINE 100 MG TABLET PO SCH (09:00)
[2024-06-07] MEDS: THIAMINE INJ 250 MG in SODIUM CHLORIDE 0.9% 50 ML IV ONE (09:10)
[2024-06-07] MEDS: oxyCODONE 5 MG TABLET PO PRN (22:21)
[2024-06-08 05:30] LABS: BASOPHILS # (AUTO) 0.1 10^3/uL (0.0-0.1); EOSINOPHILS # (AUTO) 0.4 10^3/uL (0.0-0.7); EOSINOPHILS % (AUTO) 8.4 %; HCT - HEMATOCRIT 33.1 % (37.0-47.0); HGB - HEMOGLOBIN 10.2 g/dL (12.0-16.0); LYMPHOCYTES # (AUTO) 1.2 10^3/uL (1.5-3.5); LYMPHOCYTES % (AUTO) 24.7 %; MEAN CORPUSCULAR HGB CONC 30.8 g/dL (32.0-36.0); MEAN CORPUSCULAR VOLUME 84.2 fL (81.0-99.0); MEAN PLATELET VOLUME 9.1 fL (7.9-10.8); MONOCYTES # (AUTO) 0.4 10^3/uL (0.0-1.0); MONOCYTES % (AUTO) 7.2 %; NEUTROPHILS # (AUTO) 2.9 10^3/uL (1.5-6.6); NEUTROPHILS % (AUTO) 58.3 %; PLT - PLATELET COUNT 308 10^3/uL (130-450); RED BLOOD COUNT 3.93 10^6/uL (4.20-5.40); RED CELL DISTRIBUTION WIDTH 17.6 % (12.0-15.0)
[2024-06-08 05:49] LABS: CALCIUM 8.7 mg/dL (8.5-10.3); CREATININE 0.3 mg/dL (0.6-1.3); MAGNESIUM 1.8 mg/dL (1.7-2.3)
--- NOTE | 2024-06-08 07:19 | PROVIDER PROGRESS NOTE ---
Subjective - Prog Note Date Prog Note Date: 06/08/24 Prog Note Time: 07:19 - Subjective Pt reports feeling: Improved Subjective: Her serum sodium continues to improve and her mentation overall is better. She remembered that it is June and also remember that yesterday she was very confused regarding the month. Otherwise she is oriented to location, situation and year however she does not recall the events earlier in her hospitalization when she was more disoriented. Denies any chest pain, shortness of breath, cough, fevers, chills, nausea, vomiting or diarrhea. Of note she does report pain and redness on her right wrist and an area of a old peripheral IV site. Objective - Vital Signs/Intake & Output Reviewed Vital Signs: Yes Vital Signs: Vital Signs x48h Temp Pulse Resp BP Pulse Ox O2 Flow Rate 06/08/24 00:40 36.7 C 79 12 103/89 H 94 2 Intake & Output: Intake & Output 06/05/24 06/06/24 06/07/24 06/08/24 23:59 23:59 23:59 23:59 Intake Total 8436.823 8319.667 320 200 Output Total 2400 3500 1000 425 Balance -918.752 6010.667 -680 -225 - Objective General Appearance: positive: No acute distress, Alert Eyes Bilateral: positive: PERRL, EOMI. negative: Conjunctivae nml (Right-sided conjunctival hemorrhage noted.) ENT: positive: Pharynx nml, No signs of dehydration, Other (Multiple periorbital ecchymoses as well as maxillary ecchymosis and large eschar on her lower chin, overall stable compared to prior examinations.) Neck: positive: Nml inspection, Thyroid nml, No JVD, Trachea midline Respiratory: positive: No respiratory distress, Breath sounds nml. negative: Wheezes, Rales, Rhonchi Cardiovascular: positive: Regular rate & rhythm, No murmur, No gallop Abdomen: positive: Non-tender, No organomegaly, Nml bowel sounds, No distention Back: positive: Nml inspection Skin: positive: Warm, Dry Extremities: positive: No pedal edema Neurologic/Psychiatric: positive: Oriented x3, CN's nml (2-12), Motor nml - Lab Results Fish Bones: 06/08/24 04:32 06/08/24 04:32 Other Labs: Lab Results x24hrs 06/08/24 06/08/24 06/07/24 Range/Units 04:32 04:32 20:03 WBC 5.0 (4.8-10.8) x10^3/uL RBC 3.93 L (4.20-5.40) 10^6/uL Hgb 10.2 L (12.0-16.0) g/dL Hct 33.1 L (37.0-47.0) % MCV 84.2 (81.0-99.0) fL MCH 26.0 L (27.0-31.0) pg MCHC 30.8 L (32.0-36.0) g/dL RDW 17.6 H (12.0-15.0) % Plt Count 308 (130-450) 10^3/uL MPV 9.1 (7.9-10.8) fL Neut # (Auto) 2.9 (1.5-6.6) 10^3/uL Lymph # (Auto) 1.2 L (1.5-3.5) 10^3/uL [place] # (Auto) 0.4 (0.0-1.0) 10^3/uL Eos # (Auto) 0.4 (0.0-0.7) 10^3/uL Baso # (Auto) 0.1 (0.0-0.1) 10^3/uL Absolute Nucleated RBC 0.00 x10^3/uL Nucleated RBC % 0.0 /100WBC VBG pH (7.31-7.41) Ionized Calcium (1.15-1.33) mmol/L Sodium 132 L (135-145) mmol/L Potassium 4.0 (3.5-4.5) mmol/L Chloride 97 L (101-111) mmol/L Carbon Dioxide 30 (21-32) mmol/L Anion Gap 5.0 L (6-13) BUN 6 (6-20) mg/dL Creatinine 0.3 L (0.6-1.3) mg/dL Estimated GFR (MDRD) 225 (>89) Glucose 95 (74-104) mg/dL POC Whole Bld Glucose 183 H (70 - 100) mg/dL Calcium 8.7 (8.5-10.3) mg/dL Phosphorus 5.0 (2.5-5.0) mg/dL Magnesium 1.8 (1.7-2.3) mg/dL 06/07/24 06/07/24 06/07/24 Range/Units 17:56 17:12 13:02 WBC (4.8-10.8) x10^3/uL RBC (4.20-5.40) 10^6/uL Hgb (12.0-16.0) g/dL Hct (37.0-47.0) % MCV (81.0-99.0) fL MCH (27.0-31.0) pg MCHC (32.0-36.0) g/dL RDW (12.0-15.0) % Plt Count (130-450) 10^3/uL MPV (7.9-10.8) fL Neut # (Auto) (1.5-6.6) 10^3/uL Lymph # (Auto) (1.5-3.5) 10^3/uL [place] # (Auto) (0.0-1.0) 10^3/uL Eos # (Auto) (0.0-0.7) 10^3/uL Baso # (Auto) (0.0-0.1) 10^3/uL Absolute Nucleated RBC x10^3/uL Nucleated RBC % /100WBC VBG pH (7.31-7.41) Ionized Calcium (1.15-1.33) mmol/L Sodium (135-145) mmol/L Potassium (3.5-4.5) mmol/L Chloride (101-111) mmol/L Carbon Dioxide (21-32) mmol/L Anion Gap (6-13) BUN (6-20) mg/dL Creatinine (0.6-1.3) mg/dL Estimated GFR (MDRD) (>89) Glucose (74-104) mg/dL POC Whole Bld Glucose 89 (70 - 100) mg/dL Calcium (8.5-10.3) mg/dL Phosphorus (2.5-5.0) mg/dL Magnesium 1.7 1.8 (1.7-2.3) mg/dL 06/07/24 06/07/24 06/07/24 Range/Units 12:38 08:37 07:14 WBC 6.5 (4.8-10.8) x10^3/uL RBC 3.89 L (4.20-5.40) 10^6/uL Hgb 10.2 L (12.0-16.0) g/dL Hct 32.3 L (37.0-47.0) % MCV 83.0 (81.0-99.0) fL MCH 26.2 L (27.0-31.0) pg MCHC 31.6 L (32.0-36.0) g/dL RDW 17.5 H (12.0-15.0) % Plt Count 304 (130-450) 10^3/uL MPV 8.9 (7.9-10.8) fL Neut # (Auto) 4.6 (1.5-6.6) 10^3/uL Lymph # (Auto) 1.1 L (1.5-3.5) 10^3/uL [place] # (Auto) 0.5 (0.0-1.0) 10^3/uL Eos # (Auto) 0.3 (0.0-0.7) 10^3/uL Baso # (Auto) 0.0 (0.0-0.1) 10^3/uL Absolute Nucleated RBC 0.00 x10^3/uL Nucleated RBC % 0.0 /100WBC VBG pH (7.31-7.41) Ionized Calcium (1.15-1.33) mmol/L Sodium (135-145) mmol/L Potassium (3.5-4.5) mmol/L Chloride (101-111) mmol/L Carbon Dioxide (21-32) mmol/L Anion Gap (6-13) BUN (6-20) mg/dL Creatinine (0.6-1.3) mg/dL Estimated GFR (MDRD) (>89) Glucose (74-104) mg/dL POC Whole Bld Glucose 92 140 H (70 - 100) mg/dL Calcium (8.5-10.3) mg/dL Phosphorus (2.5-5.0) mg/dL Magnesium (1.7-2.3) mg/dL 06/07/24 06/07/24 Range/Units 07:14 07:14 WBC (4.8-10.8) x10^3/uL RBC (4.20-5.40) 10^6/uL Hgb (12.0-16.0) g/dL Hct (37.0-47.0) % MCV (81.0-99.0) fL MCH (27.0-31.0) pg MCHC (32.0-36.0) g/dL RDW (12.0-15.0) % Plt Count (130-450) 10^3/uL MPV (7.9-10.8) fL Neut # (Auto) (1.5-6.6) 10^3/uL Lymph # (Auto) (1.5-3.5) 10^3/uL [place] # (Auto) (0.0-1.0) 10^3/uL Eos # (Auto) (0.0-0.7) 10^3/uL Baso # (Auto) (0.0-0.1) 10^3/uL Absolute Nucleated RBC x10^3/uL Nucleated RBC % /100WBC VBG pH 7.461 H (7.31-7.41) Ionized Calcium 1.11 L (1.15-1.33) mmol/L Sodium 130 L (135-145) mmol/L Potassium 4.2 (3.5-4.5) mmol/L Chloride 98 L (101-111) mmol/L Carbon Dioxide 26 (21-32) mmol/L Anion Gap 6.0 (6-13) BUN 4 L (6-20) mg/dL Creatinine 0.3 L (0.6-1.3) mg/dL Estimated GFR (MDRD) 225 (>89) Glucose 109 H (74-104) mg/dL POC Whole Bld Glucose (70 - 100) mg/dL Calcium 8.6 (8.5-10.3) mg/dL Phosphorus 5.1 H (2.5-5.0) mg/dL Magnesium 1.7 (1.7-2.3) mg/dL - Diagnostic Imaging Diagnostic Imaging Comments: Abdomen/Pelvis CT: Dilated common bile duct measuring up to 1.1 cm, stable since 2018. No c holedocholithiasis visualized. Remainder of exam is unremarkable. Cervical Spine CT: No acute displaced fracture or traumatic subluxation. Chest CT: 1. Smooth interlobular septal thickening is favored to represent a mild pulmonary edema. No focal dense airspace consolidation. 2. Scattered solitary pulmonary nodules less than [address] in 12 months to demonstrate stability per Fleischner Society guidelines. 3. Mediastinal lymphadenopathy. Attention on follow-up images recommended. Head CT: 1. No acute intracranial pathology. 2. Right nasal bone fracture, new since 08/13/2023, however appears to be chronic given lack of surrounding soft tissue swelling. Recommend correlation with point tenderness. Maxillofacial CT: Right nasal bone fracture. Chin laceration. Sepsis Event Note (H) - Evaluation Current Stage of Sepsis: Ruled out Assessment/Plan - Problem List (1) Hyponatremia Impression: On presentation she had a sodium of 115, which is likely secondary to "beer potomania" as she consistently drinks alcohol for most of her caloric intake. -She was given 2 L of normal saline in the emergency department. The morning after admission her sodium was 127, which was too rapid of an increase. She was given D5W which decreased the sodium to 120, which has slowly risen to 132 this morning. -Clinically she is improved and her hyponatremia is nearly resolved. She does not require any further isotonic fluids or other therapies for her hyponatremia. (2) Alcohol use disorder Impression: She does drink alcohol excessively and has a longstanding history of alcohol abuse with multiple admissions in the past related to this. She has early stages of dementia, which is likely secondary to her chronic alcohol use. -Received IV thiamine 250 mg 06/06 and 06/07, then oral thiamine 100 mg thereafter. -No signs of Wernicke's/Korsakoff syndrome at this time. Clinically she continues to improve cognitively. -No sign of EtOH withdrawal currently. (3) Laceration of chin Impression: She has a large eschar on her chin from the recent fall and probable laceration. -General Surgery is following due to large size of this. Currently recommending local wound care as surgical debridement would likely leave a large wound. (4) Cellulitis of right wrist Impression: Occurred at the site of an old peripheral IV insertion. -Start oral Keflex. (5) Nasal bone fracture Impression: Based on images this is most likely chronic in nature. She does have significant bruising on her face however the nose does not appear to be acutely broken. (6) Hx of falling Impression: She has a longstanding history of multiple falls, related to her alcohol use and intoxication. -PT/OT is consulted during this hospitalization. -Currently recommending LTC/memory care for her given her frequent hospitalizations, frequent falls and unsafe living conditions. (7) DM type 2 (diabetes mellitus, type 2) Impression: She has a reported history of type 2 diabetes and is currently on metformin however her recent A1c was normal. -At discharge, she could probably be taken off of metformin given her normal A1c. Qualifiers: Diabetes mellitus group home insulin use: without group home use Diabetes mellitus complication status: without complication Qualified Code(s): E11.9 - Type 2 diabetes mellitus without complications (8) Fibromyalgia Impression: Prescribed Cymbalta and gabapentin as an outpatient. Can continue these medications while inpatient. (9) Hypertension Impression: She has a past history noted of hypertension however she has not been prescribed any medications for this recently. -Started amlodipine 5 mg daily due to elevated blood pressure, but BP is normal now. Will discontinue Amlodipine today. Qualifiers: Hypertension type: essential hypertension (10) Bipolar affective disorder, depressed Impression: Managed as an outpatient on Depakote and Seroquel. Qualifiers: (11) COPD (chronic obstructive pulmonary disease) with emphysema Impression: No acute issues at this time however she does have chronic hypoxic respiratory failure requiring home supplemental oxygen. -Continue supplemental oxygen and as needed breathing treatments.
[2024-06-08] MEDS: THIAMINE 100 MG TABLET PO SCH (08:12)
[2024-06-08] MEDS: cephALEXin 250 MG CAPSULE PO SCH (12:48)
[2024-06-09 06:01] LABS: BASOPHILS # (AUTO) 0.1 10^3/uL (0.0-0.1); BASOPHILS % (AUTO) 0.8 %; EOSINOPHILS # (AUTO) 0.5 10^3/uL (0.0-0.7); EOSINOPHILS % (AUTO) 7.8 %; HCT - HEMATOCRIT 36.3 % (37.0-47.0); LYMPHOCYTES # (AUTO) 1.5 10^3/uL (1.5-3.5); LYMPHOCYTES % (AUTO) 22.9 %; MEAN CORPUSCULAR HEMOGLOBIN 25.6 pg (27.0-31.0); MEAN CORPUSCULAR HGB CONC 30.3 g/dL (32.0-36.0); MEAN CORPUSCULAR VOLUME 84.4 fL (81.0-99.0); MEAN PLATELET VOLUME 9.3 fL (7.9-10.8); MONOCYTES # (AUTO) 0.4 10^3/uL (0.0-1.0); MONOCYTES % (AUTO) 6.1 %; NEUTROPHILS # (AUTO) 4.1 10^3/uL (1.5-6.6); NEUTROPHILS % (AUTO) 62.1 %; PLT - PLATELET COUNT 353 10^3/uL (130-450); RED CELL DISTRIBUTION WIDTH 17.8 % (12.0-15.0); WHITE BLOOD COUNT 6.6 x10^3/uL (4.8-10.8)
[2024-06-09 06:19] LABS: CALCIUM 9.2 mg/dL (8.5-10.3); CREATININE 0.3 mg/dL (0.6-1.3); POTASSIUM 3.7 mmol/L (3.5-4.5)
[2024-06-09] MEDS: NICOTINE 21 MG PATCH TOP SCH (08:26)
[2024-06-09 11:14] LABS: BILIRUBIN,URINE NEGATIVE (NEGATIVE); GLUCOSE, URINE (UA) NEGATIVE (NEGATIVE); KETONES,URINE (UA) NEGATIVE (NEGATIVE); LEUKOCYTE ESTERASE, URINE NEGATIVE (NEGATIVE); NITRITE,URINE NEGATIVE (NEGATIVE); OCCULT BLOOD,URINE NEGATIVE (NEGATIVE); PROTEIN,URINE NEGATIVE (NEGATIVE); UROBILINOGEN,URINE 0.2 (NORMAL) E.U./dL (NORMAL)
[2024-06-09 11:20] LABS: BACTERIA,URINE Rare /HPF (None Seen); CLARITY,URINE CLEAR (CLEAR); RBC,URINE None Seen /HPF (0-5); SQUAMOUS EPITHELIAL CELL,UR RARE Squamous (<= Few); WBC,URINE 0-3 /HPF (0-5)
--- NOTE | 2024-06-09 12:19 | Discharge Plan ---
Discharge Plan Problem Reviewed?: Yes Disposition: Home Health Service Condition: Fair Prescriptions: cephALEXin [Keflex] 500 mg PO Q6HR 7 Days #28 cap Thiamine [Vitamin B-1] 100 mg PO DAILY 30 Days #30 tab Diet: Regular Activity Restrictions: Activity as Tolerated Assistance Devices: [facility] Concerns: You were admitted to the hospital after having frequent falls leading to multiple facial injuries. You fall frequently due to alcohol intoxication but you also have nerve damage from alcohol that will cause you to be at risk for future falls even when not drinking alcohol. The imaging that we obtained in the hospital showed multiple old facial fractures but no acute fracture. You did have a large chin laceration with a scab attached to it from a fall several weeks prior to admission, and you are given wound care instructions as noted below elsewhere in this documentation. We admitted you because your sodium was very low, around 115, where is anything less than 135 is considered to be low. Your level of low sodium was dangerous and causing you to be very confused as well as having the problems with generalized weakness and frequent falls. Your sodium was not low because you have been drinking excessive alcohol and not eating and drinking regular food that contains salt. Your sodium level returned to near normal at the time of discharge and please be sure to stop drinking alcohol completely and be sure to eat food in a healthy manner. You also were noted to have a mild cellulitis of your right wrist, which is an infection of the skin. You are prescribed an oral antibiotic (Keflex, also known as Cephalexin) which you should take until the prescription is finished even if you are infection appears better. We were recommending you go to a facility for ongoing physical therapy to gain strength and minimize the risk for recurrent falls. You declined going to any facility thus we are setting you up with physical and Occupational Therapy to come to your home to help you gain strength and minimize risk for recurrent falls. Plan of Treatment: 1. Stop drinking alcohol completely as this will only worsen your health in the long run. 2. Eat 3 full meals each day. 3. Please contact the home health agency at the number provided to by the hospital staff. 4. Try not to drink more than 2000 mL of pure water in a given day. If you drink more than this your sodium could get low again. 5. Be sure to follow-up with your primary care provider within 1 week of discharge. Wound Care Instructions for your Chin: Soak a cloth in a solution that is 50% warm water and 50% hydrogen peroxide. Place the warm cloth on you chin and let it sit there for 20 minutes, then you can remove the cloth. Do this four times a day until the wound heals. No Smoking: If you smoke, Please STOP! Call for help. Follow-up with: Karen Cobos PA [Provider Admit Priv/Credential] -
--- NOTE | 2024-06-09 12:42 | DISCHARGE SUMMARY ---
Discharge Summary Admit Date: 06/05/24 Discharge Date: 06/09/24 Discharging Provider: Lele Mishra MD Primary Care Provider: Karen Cobos Code Status: Attempt Resuscitation Condition at Discharge: Fair Discharge Disposition: Home Health Service - DIAGNOSES Admission Diagnoses: 1. Hyponatremia 2. Fall from standing 3. Nasal bone fracture 4. Laceration of chin 5. Altered mental status 6. Alcohol abuse Discharge Diagnoses with Status of Each Condition: 1. Hyponatremia - improved, due to "beer potomania" 2. Frequent Falls - stable, due to alcohol abuse 3. Alcohol Use Disorder, Severe - stable, no withdrawal during hospitalization 4. Laceration of Chin with Eschar/Scab - stable 5. Altered Mental Status - improved 6. Cellulitis of Right Wrist - improving 7. Chronic Nasal Bone Fracture 8. History of Type II DM - resolved, discontinued Metformin 9. Fibromyalgia 10. Hypertension 11. Bipolar Affective Disorder 12. COPD 13. Chronic Hypoxic Respiratory Failure - HPI History of Present Illness: This patient is a 64-year-old with an extensive past medical history of hypertension, hyperlipidemia, COPD (oxygen dependent and continues to smoke cigarettes), emphysema, shortness of breath, sleep apnea, peripheral neuropathy, atrial fibrillation, osteoarthritis, osteoporosis, gastritis, type 2 diabetes, fibromyalgia, chronic back pain, and renal insufficiency. She also and extensive psychiatric history of anxiety, bipolar disorder, post traumatic stress disorder, claustrophobia, agoraphobia, and multiple suicide attempts. She was brought into the ED today via ambulance due to possible head trauma from a fall after heavy alcohol use (reportedly five drinks) last night. Apparently, she was found down, by a roommate, in her bathroom with feces on her legs and was bleeding from a prior injury to her chin. She was confused and the roommate decided to call 911. History in the emergency department was limited due presumed alcohol intoxication, however, her urine toxicology was negative for alcohol. Her toxicology is positive for barbiturates. Her traumatic workup included panscan that demonstrated a right nasal fracture and chin laceration. Her head CT shows no intracranial pathology. Her chest CT interlobular septal thickening and scattered pulmonary nodules that measure less than 6mm. She was hyponatremic in the ED with a serum sodium of 115. She was given two liters on NS in the ED and her sodium increased to 121 over the course of ~12 hours. Exam is limited as the patient is a poor historian. The patient is oriented to person and place, but becomes confused when answering questions. She states that her two daughters have deleted her from facebook several months ago, which has led her to drink all day, every day and she is also concerned that she is being watched. She states that she has fallen several times in the past two weeks, but is confused as to what injuries she sustained in those falls. She does not remember the incident that led to her being taken to the ED this morning. She has bruising to her face that appears to be resolving with ecchymosis under both of her eyes, on her cheeks and chin, and resolving ecchymosis on her chest which is tender to palpation. She has a subconjunctival hematoma on her lateral right eye. She also has a large eschar on her chin that she states bleeds profusely when she picks at it. She states she has a left sided headache and right posterior neck pain. She states pain on her chest at the site of the bruising. Her neuro exam demonstrates intact cranial nerves. She appears disheveled and states that she has not bathed in several weeks. She has chronic SOB due to COPD and emphysema, and she sometimes uses home supplemental oxygen. Her UA is positive for protein, ketones, leukocytes and squamous epithelial cells. Her WBCs are elevated at 14.3, neutrophils are 13.0, and she is afebrile. She denies any palpitations, SOB on 2lpm of supplemental oxygen, abdominal pain, nausea, vomiting, or fevers. Cranial nerves are intact. Pt will be admitted to the ICU for observation. Closely monitor sodium and start D5W if sodium increases too quickly (goal is no more than 4 to 6 mEq/L in a 24 hour period). Reconcile home medications. OT evaluation and consider placement in a care facility - CONSULTS | PROCEDURES Consultations: General Surgery Procedures: None - HOSPITAL COURSE Hospital Course: She was admitted to the ICU for treatment of her hyponatremia and she was given isotonic normal saline IV fluids for this. Her sodium initially corrected too rapidly and she was given D5W IV fluids to decrease the sodium to a safe level and then she slowly increased up to an appropriate range of 130-132. She was maintained on a 1500 mL fluid restricted diet and her hyponatremia was secondary to beer potomania that she had been using alcohol as her main caloric intake and not eating much food. She was initially quite disoriented on presentation but with her sodium improving she did become alert and oriented x 4. She did have problems with memory but she had insight into her condition (knowing that alcohol abuse caused her sodium to be low and that alcohol abuse had led to frequent falls). Her sodium level remained stable at 132-133 and did not require further treatment other than continuing a fluid restriction after discharge and avoidance of alcohol abuse. She had evidence of multiple old fractures of her face and had scattered ecchymoses throughout her face from her frequent falls over the past couple weeks. She also had a large chin laceration that was 2 weeks old and associated with a large/thick eschar and scab. General surgery was consulted to evaluate this but did not require any surgical intervention. It was recommended to soak a cloth and warm water and hydrogen peroxide mixture then apply this to the wou nd several times a day until the eschar falls off and the wound heals. For her alcohol abuse she was monitored closely but had no evidence of alcohol withdrawal during her stay. She was given IV thiamine 250 mg for 2 days and then switch to oral thiamine which was continued at discharge. She had no evidence of Wernicke's encephalopathy or Korsakoff syndrome during this stay though she is at risk for these in the future she continues to drink. PT/OT evaluated the patient during her hospitalization given her frequent falls and recommended long-term care. The patient declined any type of long-term care placement and also declined any short-term SNF placement for rehab. Despite the fact that she had some memory issues, she was alert and oriented x 4 and having insight into her medical conditions and possible repercussions of not following our recommendations. She therefore had capacity to make her own decisions and despite us feeling that she would be best served in either a short-term or long- term facility, she adamantly refused this. She was discharged home and she initially refused home PT/OT but ultimately agreed to have them assist her. Of note during her stay she did develop a mild cellulitis to her right wrist from the site of an original IV placement and she was placed on oral Keflex with improvement in the cellulitis at discharge. She will continue Keflex for a a nother 7-days of therapy after discharge. - ALLERGIES Allergies/Adverse Reactions: Allergies Allergy/AdvReac Type Severity Reaction Status Date / Time Sulfa (Sulfonamide Allergy Mild oral Verified 11/21/23 16:34 Antibiotics) blisters - MEDICATIONS Home Medications: Ambulatory Orders Medication Instructions Recorded Confirmed DULoxetine [Cymbalta] 60 mg PO DAILY 11/21/23 06/05/24 Simvastatin [Zocor] 20 mg PO HS 11/21/23 06/05/24 Gabapentin [Neurontin] 600 mg PO TID 06/05/24 06/05/24 Thiamine [Vitamin B-1] 100 mg PO DAILY 30 Days #30 tab 06/09/24 cephALEXin [Keflex] 500 mg PO Q6HR 7 Days #28 cap 06/09/24 - PHYSICAL EXAM AT DISCHARGE General Appearance: positive: No acute distress, Alert, Other (Multiple facial ecchymoses) Eyes Bilateral: positive: PERRL, EOMI. negative: Conjunctivae nml (Small right conjunctival hemorrhage noted (improving)) ENT: positive: Pharynx nml, No signs of dehydration, Other (Multiple periorbital ecchymoses and maxillary facial ecchymoses. Large laceration with thick eschar on chin.) Neck: positive: Nml inspection, Thyroid nml, No JVD, Trachea midline Respiratory: positive: No respiratory distress, Breath sounds nml. negative: Wheezes, Rales, Rhonchi Cardiovascular: positive: Regular rate & rhythm, No murmur, No gallop Peripheral Pulses: positive: 2+ Abdomen: positive: Non-tender, No organomegaly, Nml bowel sounds, No distention Back: positive: Nml inspection Skin: positive: Color nml, Warm, Dry, Other (Mild erythema on distal right wrist) Extremities: positive: No pedal edema Neurologic/Psychiatric: positive: Oriented x3, CN's nml (2-12), Motor nml, Sensation nml - LABS Result Diagrams: 06/09/24 05:11 06/09/24 05:11 - DIAGNOSTIC IMAGING Diagnostic Imaging Results Comments: Abdomen/Pelvis CT: Dilated common bile duct measuring up to 1.1 cm, stable since 2018. No choledocholithiasis visualized. Remainder of exam is unremarkable. Cervical Spine CT: No acute displaced fracture or traumatic subluxation. Chest CT: 1. Smooth interlobular septal thickening is favored to represent a mild pulmonary edema. No focal dense airspace consolidation. 2. Scattered solitary pulmonary nodules less than [address] in 12 months to demonstrate stability per Fleischner Society guidelines. 3. Mediastinal lymphadenopathy. Attention on follow-up images recommended. Head CT: 1. No acute intracranial pathology. 2. Right nasal bone fracture, new since 08/13/2023, however appears to be chronic given lack of surrounding soft tissue swelling. Recommend correlation with point tenderness. Maxillofacial CT: Right nasal bone fracture. Chin laceration. - SEPSIS Current Stage of Sepsis: Ruled out - FOLLOW UP Follow Up: To follow up with her PCP within 1 week post-discharge. - TIME SPENT Time Spent in Discharge (Minutes): 40
[2024-06-09 13:40] VITALS: BP 157/83; O2SAT 92
== END 2024-06-09 14:21 | disposition home health service (06) | DRG 641 ==
LOC: EDUNIT# → ED 01:15 → ICU 06:41 → OBSVTOIN 06-06 10:09 → MS2 06-08 18:56
PROVIDERS: ADMIT Specialist; ATTEND Hospitalist
DX: E87.1 Hypo-osmolality and hyponatremia (principal); L03.113 Cellulitis of right upper limb; S02.2XXA Fracture of nasal bones, initial encounter for closed fracture; W01.0XXA Fall on same level from slipping, tripping and stumbling without subsequent striking against object, initial encounter; Z91.81 History of falling; Y92.022 Bathroom in mobile home as the place of occurrence of the external cause; F10.20 Alcohol dependence, uncomplicated; S01.81XD Laceration without foreign body of other part of head, subsequent encounter; W19.XXXD Unspecified fall, subsequent encounter; R41.82 Altered mental status, unspecified; J43.9 Emphysema, unspecified; E11.42 Type 2 diabetes mellitus with diabetic polyneuropathy; Z79.84 Long term (current) use of oral hypoglycemic drugs; R41.0 Disorientation, unspecified; F17.210 Nicotine dependence, cigarettes, uncomplicated; G47.30 Sleep apnea, unspecified; I48.91 Unspecified atrial fibrillation; M79.7 Fibromyalgia; R91.8 Other nonspecific abnormal finding of lung field; R58 Hemorrhage, not elsewhere classified; S20.219D Contusion of unspecified front wall of thorax, subsequent encounter; S05.11XA Contusion of eyeball and orbital tissues, right eye, initial encounter; R51.9 Headache, unspecified; M54.2 Cervicalgia; Z99.81 Dependence on supplemental oxygen; F03.90 Unspecified dementia, unspecified severity, without behavioral disturbance, psychotic disturbance, mood disturbance, and anxiety; I10 Essential (primary) hypertension; E78.5 Hyperlipidemia, unspecified; G89.29 Other chronic pain; K21.9 Gastro-esophageal reflux disease without esophagitis; F43.10 Post-traumatic stress disorder, unspecified; F41.9 Anxiety disorder, unspecified; F31.9 Bipolar disorder, unspecified; M54.50 Low back pain, unspecified
CPT/HCPCS: 36415; 70450; 70486; 71260; 72125; 74177; 80048; 80053; 80061; 80306; 81001; 82330; 83036; 83690; 83735; 84100; 84132; 84295; 84443; 85025; 85610; 87150; 96361; 96374; 97163; 97166; 99284; 99285; A9270; G0378; G0480; J3411; J3590; J7040; Q9967; 81003; 82077; 83721; 87086

== ENCOUNTER 2024-10-18 17:19 | Inpatient (IN) ==
--- NOTE | 2024-10-18 17:37 | ED Physician Documentation ---
History of Present Illness Stated complaint Stated Complaint: FALL Chief complaint Chief Complaint: Trauma Hd/Nk Additonal information Additional information: 64-year-old female with history of alcohol dependence presents emergency department via EMS after being found down for unknown period of time. Patient was seen here on 10/05/2024 after acute alcoholic intake and alcohol withdrawal due to running out of money. Today patient is brought in via EMS her renter went to go check on her and found her facedown on the ground with extensive bruising through both eyes and forehead she arrived in c-collar to ER. Patient is very shaky and tremulous says that she ran out of alcohol normally drinks heavily every day and feels like she somehow fell from alcohol withdrawal symptoms but unable to contribute much to the history as what brings her in today. [place] Coma Scale Assess Eye opening: To Voice Verbal response: Confused Motor response: Localizes to Pain Total score: 12 Meds/Allgy Home Medications Ambulatory Orders Medication Instructions Recorded Confirmed duloxetine 60 mg capsule,delayed 60 mg PO DAILY 11/21/23 07/13/24 release simvastatin 20 mg tablet (Zocor) 20 mg PO HS 11/21/23 07/13/24 thiamine mononitrate (vit B1) 100 100 mg PO DAILY 30 days #30 tabs 06/09/24 07/13/24 mg tablet (Vitamin B-1 (mononitrate)) albuterol sulfate 90 mcg/actuation 2 inhalation 07/13/24 07/13/24 aerosol inhaler blood sugar diagnostic [True 07/13/24 07/13/24 Metrix Glucose Test Strip] budesonide-formoterol HFA 160 2 inhalation 07/13/24 07/13/24 mcg-4.5 mcg/actuation aerosol inhaler (Symbicort) docusate sodium 100 mg capsule 100 mg PO QDAY 07/13/24 07/13/24 (Colace) lancets 30 gauge (BD Microtainer 07/13/24 07/13/24 Lancet) levalbuterol HCl 1.25 mg/3 mL mg inhalation 07/13/24 07/13/24 solution for nebulization mupirocin 2 % topical ointment 1 topical 07/13/24 07/13/24 nystatin 100,000 unit/gram topical 1 topical 07/13/24 07/13/24 cream triamcinolone acetonide 0.1 % 1 applic topical 07/13/24 07/13/24 topical cream amlodipine 5 mg tablet (Norvasc) 5 mg PO QDAY #90 tabs 07/17/24 07/17/24 gabapentin 600 mg tablet 1,200 mg (2 x 600 mg) PO TID #180 08/06/24 (Neurontin) tabs primidone 50 mg tablet See Rx Instructions .Route 08/06/24 .COMPLEX #270 tabs aspirin 81 mg tablet,delayed See Rx Instructions .Route 08/28/24 release .COMPLEX #100 tabs quetiapine 50 mg tablet 50 mg PO QPM #90 tabs 09/25/24 duloxetine 60 mg capsule,delayed 60 mg PO DAILY #30 caps 10/05/24 release gabapentin 300 mg capsule 300 mg PO TID #60 caps 10/05/24 lorazepam 1 mg tablet (Ativan) 1 mg PO TID PRN alcohol withdrawal 10/05/24 #14 tabs phenobarbital 30 mg tablet 30 mg PO BID PRN sedation #9 tabs 10/05/24 Allergies Allergies Allergy/AdvReac Type Severity Reaction Status Date / Time ciprofloxacin Allergy Severe Hives Verified 10/18/24 17:36 Sulfa (Sulfonamide Allergy Mild oral Verified 10/18/24 17:36 Antibiotics) blisters [facility] Medical History Medical History (Updated 10/18/24 @ 21:24 by Momo Carmona DNP) History of COPD History of diabetes mellitus Surgical History Surgical History H/O cervical spine surgery S/P hardware removal Status post open reduction and internal fixation (ORIF) of fracture Family History Family History (Updated 07/17/24 @ 15:16 by GARRET Juárez) Mother Osteoporosis Arthritis Cancer Anxiety Depressed Heart disease Hyperlipidemia Father Family history of lung cancer Other Suicide attempt Social History Social History Smoking Status: Current every day smoker Number of Years Smoked: 30 How many cigarettes a day do you smoke? (20 cigarettes=1 Pk): 30 Second hand tobacco smoke exposure: Yes Do you dip or chew tobacco?: No Patient requests smoking cessation consult: No Initiate information on smoking cessation: No Living arrangement: At home Living Condition: Other (Reportedly lives with two roomates.) Relationship: Living Situation Details: lives with room mate Level: Independent Home Mobility Equipment: Cane, Wheeled walker and Wheelchair Do you feel safe in your home environment?: Yes Suffered physical, verbal, emotional, or financial abuse?: No History of Abuse: No ETOH Use: Beer Frequency: Daily Number of Amount/day: 15 ETOH Use Details: Per patient unsure of quantity due to changes in beer sized. Estimates 10-15 12oz beers nightly Substance Use: denies use Substance Use Details: tried but didn't like how it made her feel POLST Patient has POLST: No POLST Status: Full Code Exam Constitutional abnormal general appearance (disheveled), (lethargic), (appears older than stated age) and (frail appearing), distress noted (mild), abnormal body habitus (overweight), limitations noted (altered mental status) and level of alertness abnormal (lethargic) and (confused) HENMT head/scalp traumatic (Significant swelling and ecchymosis to forehead and bilateral eyes) (contusion) and (hematoma) and oral mucous membranes abnormal (dry) Eyes PERRL, EOMs intact bilaterally, conjunctivae abnormal (discharge), alignment normal and no nystagmus Compartments soft and without pain but significant swelling and ecchymosis to bilateral periorbital region Neck/C-Spine c-spine on Chest right posterior/laterial brusing with tendernss to rib region Respiratory breath sounds equal bilaterally Cardiovascular heart rate abnormal (tachycardic), regular rhythm noted and no murmur Gastrointestinal abdomen normal to inspection, abdomen soft to palpation and nontender to palpation Genitourinary bladder normal to palpation Back/Pelvis spine normal to inspection Extremities right elbow bruising and tenderness with palpation with significant echomosis. left hip echymosis with tenderness with palpation, left toes tendernss with bruising Neurology speech abnormality noted (slurred) and (garbled) Psychiatry mental status abnormal (somnolent), orientation abnormal (disoriented to time), thought process abnormality noted (confused), cooperative and affect abnormality noted (flat) Skin Significant amount of bruising to multiple different areas of her body and multiple different healing stages with superficial lacerations to multiple different areas of her body as well. Results Vitals Vitals: Vital Signs - 24 hr 10/18/24 17:29 10/18/24 17:38 10/18/24 18:00 Temperature 36.3 C L Temperature Source Skin Pulse Rate 121 H 110 H 107 H Respiratory Rate 17 17 18 Blood Pressure 172/127 H 177/90 H O2 Saturation 95 94 94 O2 Source Room air Room air Pain Intensity 6 8 8 10/18/24 19:09 10/18/24 19:30 10/18/24 20:00 Temperature Temperature Source Pulse Rate 120 H 108 H 119 H Respiratory Rate 18 18 18 Blood Pressure 139/95 H 163/81 H 139/95 H O2 Saturation 92 94 93 O2 Source Room air Room air Room air Pain Intensity 6 3 3 10/18/24 20:30 Temperature Temperature Source Pulse Rate 112 H Respiratory Rate 18 Blood Pressure 155/71 H O2 Saturation 94 O2 Source Room air Pain Intensity 3 Oxygen O2 Source [With Activity] Room air O2 Source Room air Labs Labs: Laboratory Tests 10/18/24 10/18/24 17:42 20:40 WBC 20.0 H RBC 4.79 Hgb 12.0 Hct 36.5 L MCV 76.2 L MCH 25.1 L MCHC 32.9 RDW 16.9 H Plt Count 268 MPV 8.9 Neut # (Auto) Not Reportable Lymph # (Auto) Not Reportable [place] # (Auto) Not Reportable Eos # (Auto) Not Reportable Baso # (Auto) Not Reportable Absolute Nucleated RBC Not Reportable Total Counted 100 Band Neuts % (Manual) 1 Abnorm Lymph % (Manual) 0 Nucleated RBC % Not Reportable Neutrophils # (Manual) 14.6 H Lymphocytes # (Manual) 0.8 L Monocytes # (Manual) 1.2 H Eosinophils # (Manual) 3.4 H Basophils # (Manual) 0.0 Differential Comment MANUAL DIFFERENTIAL Manual Slide Review Indicated Platelet Estimate NORMAL (130-450,000) Platelet Morphology NORMAL APPEARANCE RBC Morph Micro Appear NORMAL APPEARANCE PT 12.1 INR 1.1 Sodium 121 L Potassium 3.8 Chloride 82 L Carbon Dioxide 20 L Anion Gap 19.0 H BUN 7 Creatinine 0.3 L Estimated GFR (MDRD) 225 Glucose 85 Calcium 8.4 L Total Bilirubin 0.7 AST 125 H ALT 97 H Alkaline Phosphatase 87 Total Protein 7.5 Albumin 4.1 Globulin 3.4 Albumin/Globulin Ratio 1.2 Lipase 101 H Urine Color DARK YELLOW Urine Clarity SL. CLOUDY Urine pH 6.0 Ur Specific [place] >=1.030 H Urine Protein >=300 H Urine Glucose (UA) NEGATIVE Urine Ketones >=80 H Urine Occult Blood SMALL H Urine Nitrite NEGATIVE Urine Bilirubin NEGATIVE Urine Urobilinogen 0.2 (NORMAL) Ur Leukocyte Esterase NEGATIVE Urine RBC 6-10 H Urine WBC 4-5 Ur Squamous Epith Cells MANY Squamous H Urine Bacteria Many H Ur Microscopic Review INDICATED Urine Culture Comments NOT INDICATED Urine Opiates Screen NEGATIVE Ur Buprenorphine Scrn NEGATIVE Ur Oxycodone Screen NEGATIVE Urine Methadone Screen NEGATIVE Ur Barbiturates Screen POSITIVE H Ur Tricyclics Screen NEGATIVE Ur Phencyclidine Scrn NEGATIVE Ur Amphetamine Screen NEGATIVE U Methamphetamines Scrn NEGATIVE U Benzodiazepines Scrn NEGATIVE Urine Cocaine Screen NEGATIVE U Cannabinoids Screen NEGATIVE Ur Drug Screen Comment CUTOFF CONC BELOW: Ethyl Alcohol 100.1 Blood Type A NEGATIVE Antibody Screen NEGATIVE Rads (name of study) Cervical spine CT without: Relevant Findings:: Final report received and EMP independent interpretation of test Interpretation: IMPRESSION: No acute CT abnormality of the cervical spine. Head CT without: Relevant Findings:: Final report received and EMP independent interpretation of test Interpretation: IMPRESSION: No acute intracranial abnormality. CT maxillofacial without: Relevant Findings:: Final report received and EMP independent inte rpretation of test Interpretation: IMPRESSION: Acute soft tissue hematoma overlying the frontal bone and periorbital regions without other acute CT facial bone abnormality. CT chest without: Relevant Findings:: Final report received and EMP independent interpretation of test Interpretation: IMPRESSION: No traumatic injury to the chest. No acute displaced rib fractures as clinically queried. Left toe x-rays: Relevant Findings:: Final report received and EMP independent interpretation of test Interpretation: IMPRESSION: Acute minimally displaced fractures of the 4th digit proximal phalangeal base, 4th metatarsal neck, and 3rd digit proximal phalangeal medial base. Left elbow x-rays: Relevant Findings:: Final report received and EMP independent interpretation of test Interpretation: IMPRESSION: No acute fracture or dislocation of the right elbow. CT abdomen pelvis without: Relevant Findings:: Final report received and EMP independent interpre tation of test Interpretation: IMPRESSION: No intra-abdominal or intrapelvic traumatic abnormality is identified. Left hip soft tissue contusion is suspected. No displaced fracture or dislocation. Nonspecific lower lung groundglass opacities possibly infectious/inflammatory. Fluid and wall thickening of the distal esophagus, possibly reflux esophagitis, but nonspecific, consider endoscopy correlation if needed. Significant hepatic steatosis. Liquid distal colonic and rectal contents, correlate with diarrhea and any symptoms of colitis Limited noncontrast CT. PD Medical Decision Making ED course Complexity details: reviewed old records, reviewed results, re-evaluated patient and d/w advisor consultant (Momo Carmona NP, Hospitalist) ED course: 64-year-old female found down on her face today for unknown period of time how long. Upon arrival to the emergency department she had significant swelling and bruising throughout her entire face as well as multiple different bruises throughout her entire body multiple different healing stages with superficial abrasions and lacerations over her body. Labs are complete for further evaluation she does appear to have a significant leukocytosis, WBC 20 last lab draw was 10/05/2024 and WBC was found within normal limits. Patient was also found to have hyponatremia, NA 121 previous lab drawn 10/05 was found to be 133 AST found to be elevated at 125, ALT found to be elevated at 97 lipase also slightly elevated at 101. Because of patient's EtOH being over 100 and ow altered she appeared a multitude of images were ordered. CT cervical spine wo did not show any acute subluxations or fractures, CT head without as well as CT maxillofacial without also did not show any acute intracranial hemorrhages without other acute bony abnormalities or findings. CT chest without was complete which did not reveal any acute fractures. CT abdomen pelvis also complete which does reveal some possible nonspecific lower lung field groundglass opacity possibly related to infectious versus inflammatory which could be contributing to patient's elevated WBC no rib fractures. X-ray of her right elbow was also complete no bony abnormalities or fractures are visualized an x-ray of her left toes were also complete which shows acute minimally displaced fractures of the fourth digit proximal phalangeal base and fourth metatarsal neck and third proximal phalangeal medial base. Given that she is not walking at this point in time is not getting walking x 2 and she is not placed in any sort of splint but when she is able to start ambulating again she would benefit from a postop walking boot for these fractures. She also appears to be in some mild withdrawal so she is given 1 mg of IV Ativan which RN reports did help alcohol withdrawal symptoms. I spoke with on-call hospitalist Momo Carmona Who has graciously agreed to admit the patient for hyponatremia as well as alcohol withdrawal symptoms she will go to the ICU overnight for close observation and monitoring. Fuentes catheter was placed in the emergency department urine is still pending. Hospitalist to take over care for patient. Discharge Plan Discharge Patient Disposition: 67 [facility] DC/Xfer Condition: Fair Clinical Impression: Alcohol withdrawal, Contusion of face, Fall from ground level, Acute hyponatremia, Closed fracture of toe Interventions: ED Admission Assessment Last Done: 10/18/24 21:47
[2024-10-18 17:50] LABS: BASOPHILS % (AUTO) 0.3 %; EOSINOPHILS % (AUTO) 33.4 %; HCT - HEMATOCRIT 36.5 % (37.0-47.0); LYMPHOCYTES % (AUTO) 3.8 %; MEAN CORPUSCULAR HEMOGLOBIN 25.1 pg (27.0-31.0); MEAN CORPUSCULAR HGB CONC 32.9 g/dL (32.0-36.0); MEAN CORPUSCULAR VOLUME 76.2 fL (81.0-99.0); MEAN PLATELET VOLUME 8.9 fL (7.9-10.8); MONOCYTES % (AUTO) 2.2 %; NEUTROPHILS % (AUTO) 59.7 %; PLT - PLATELET COUNT 268 10^3/uL (130-450); RED BLOOD COUNT 4.79 10^6/uL (4.20-5.40); RED CELL DISTRIBUTION WIDTH 16.9 % (12.0-15.0)
[2024-10-18 17:53] LABS: SLIDE REVIEW? Indicated
[2024-10-18 17:54] LABS: ABNORMAL LYMPHS % (MANUAL) 0 %
[2024-10-18 17:58] LABS: INR 1.1 (0.8-1.2); PT - PROTHROMBIN TIME 12.1 secs (9.9-12.6)
[2024-10-18] MEDS: SODIUM CHLORIDE 0.9% 1,000 ML IV STA (18:00)
[2024-10-18 18:15] LABS: ETOH - ETHANOL 100.1 mg/dL
--- NOTE | 2024-10-18 18:17 | CT Report ---
PROCEDURE: CT Cervical Spine WO INDICATIONS: Neck trauma, midline tenderness TECHNIQUE: Noncontrast 3 mm thick sections acquired from the skull base to the T4 level. Sagittal and coronal r eformats were then constructed. For radiation dose reduction, the following was used: automated exp osure control, adjustment of mA and/or kV according to patient size. COMPARISON: CT cervical spine without contrast 06/05/2024 FINDINGS: Image quality: Excellent. Bones: No fractures or dislocations. Visualized superior ribs are intact. Straightening of the cer vical lordosis. Multilevel facet and uncinate arthropathy. Soft tissues: Prevertebral soft tissues are normal in thickness. No paravertebral hematomas. No ap ical pneumothoraces. Moderate centrilobular emphysema. IMPRESSION: No acute CT abnormality of the cervical spine. Reviewed by: David Rhodes MD on 10/18/2024 6:15 PM PST Approved by: David Rhodes MD on 10/18/2024 6:15 PM PST Station ID: [id number]
[2024-10-18 18:20] LABS: BAND NEUTROPHILS % (MANUAL) 1 %; EOSINOPHILS # (MANUAL) 3.4 10^3/uL (0-0.7); LYMPHOCYTES # (MANUAL) 0.8 10^3/uL (1.5-3.5); LYMPHOCYTES % (MANUAL) 4 %; MONOCYTES # (MANUAL) 1.2 10^3/uL (0.0-1.0); NEUTROPHILS # (MANUAL) 14.6 10^3/uL (1.5-6.6)
[2024-10-18 18:21] LABS: DIFFERENTIAL COMMENT MANUAL DIFFERENTIAL; PLATELET ESTIMATE, MANUAL NORMAL (130-450,000) (NORMAL); PLATELET MORPHOLOGY NORMAL APPEARANCE (NORMAL); RBC MORPHOLOGY (MULTIPLE) NORMAL APPEARANCE (NORMAL)
--- NOTE | 2024-10-18 18:21 | CT Report ---
PROCEDURE: CT Head WO INDICATIONS: Head trauma, mod-severe TECHNIQUE: Noncontrast 4.5 mm thick angled axial sections acquired from the foramen magnum to the vertex. For r adiation dose reduction, the following was used: automated exposure control, adjustment of mA and/or kV according to patient size. COMPARISON: CT head without contrast 06/05/2024 FINDINGS: Image quality: Excellent. CSF spaces: Basal cisterns are patent. No extra-axial fluid collections. Ventricles are normal in size and shape. Brain: No midline shift. No intracranial masses or hemorrhage. Benoit-white matter interface is norm al. Skull and face: Calvarium and visualized facial bones are intact, without suspicious lesions. Acute soft tissue hematoma overlying the frontal bone (/) and periorbital regions. Sinuses: Visualized sinuses and mastoids are clear. IMPRESSION: No acute intracranial abnormality. Reviewed by: David Rhodes MD on 10/18/2024 6:20 PM PST Approved by: David Rhodes MD on 10/18/2024 6:20 PM PST Station ID: [id number]
[2024-10-18 18:22] LABS: ALBUMIN 4.1 g/dL (3.2-5.5); ALBUMIN/GLOBULIN RATIO 1.2 (1.0-2.2); BILIRUBIN,TOTAL 0.7 mg/dL (0.2-1.0); CALCIUM 8.4 mg/dL (8.5-10.3); CREATININE 0.3 mg/dL (0.6-1.3); POTASSIUM 3.8 mmol/L (3.5-4.5); TOTAL PROTEIN 7.5 g/dL (6.4-8.9)
--- NOTE | 2024-10-18 18:24 | CT Report ---
PROCEDURE: CT Maxillofacial WO INDICATIONS: Facial trauma TECHNIQUE: Noncontrast 1.5 mm thick axial images acquired from the mandible through the frontal sinuses, with co todd and sagittal reformatting. For radiation dose reduction, the following was used: automated ex posure control, adjustment of mA and/or kV according to patient size. COMPARISON: CT facial bones without contrast 06/05/2024 FINDINGS: Image quality: Excellent. Bones and teeth: Orbital perry are intact. Sinus perry show no fracture or deformity. Chronic, comm inuted nasal bone fractures. Visualized portions of the mandible demonstrate no fractures or subluxa tion. Zygomatic arches are intact. Pterygoid plates are intact. Visualized portions of the skull b ase and auditory canals are intact. Sinuses: Paranasal sinuses are aerated, without fluid levels, mucosal thickening, or mucoceles. Mas toid air cells are aerated. Soft tissues: Orbits and extraocular muscles are intact. Soft tissue hematoma overlying the periorbi dory regions and frontal bone. Vascular: Visualized vascular structures appear normal in the absence of contrast. Bony vascular fo ramina and canals are intact. IMPRESSION: Acute soft tissue hematoma overlying the frontal bone and periorbital regions without other acute CT facial bone abnormality. Reviewed by: David Rhodes MD on 10/18/2024 6:22 PM PST Approved by: David Rhodes MD on 10/18/2024 6:22 PM PST Station ID: [id number]
[2024-10-18] MEDS: LORazepam 2 MG/ML VIAL IVP STA ×3 (19:20→20:56)
--- NOTE | 2024-10-18 19:54 | XRAY Report ---
PROCEDURE: XR Elbow 3+V RT INDICATIONS: right elbow pain and swelling TECHNIQUE: 3 views of the elbow were acquired. COMPARISON: None. FINDINGS: Bones: No fractures or dislocations. No suspicious bony lesions. Soft tissues: No effusion. No suspicious soft tissue calcifications or masses. Peripheral IV overly ing the antecubital fossa. IMPRESSION: No acute fracture or dislocation of the right elbow. Reviewed by: David Rhodes MD on 10/18/2024 7:52 PM PST Approved by: David Rhodes MD on 10/18/2024 7:52 PM PST Station ID: [id number]
--- NOTE | 2024-10-18 19:55 | XRAY Report ---
PROCEDURE: XR Toe(s) 2+V LT INDICATIONS: left 3rd, 4th toe bruising and pain TECHNIQUE: 3 views of the 3rd and 4th toe(s) acquired. COMPARISON: None. FINDINGS: Diffuse osseous demineralization. Acute, minimally displaced fractures of the 4th digit proximal phal angeal base and 4th metatarsal neck. Possible additional minimally displaced fracture at the medial b ase of the 3rd proximal phalanx. IMPRESSION: Acute minimally displaced fractures of the 4th digit proximal phalangeal base, 4th metatarsal neck, a nd 3rd digit proximal phalangeal medial base. Reviewed by: David Rhodes MD on 10/18/2024 7:54 PM PST Approved by: David Rhodes MD on 10/18/2024 7:54 PM PST Station ID: [id number]
--- NOTE | 2024-10-18 20:17 | CT Report ---
PROCEDURE: CT Chest WO INDICATIONS: right lateral rib bruising and pain, GLF TECHNIQUE: A CT scan of the chest was performed. Intravenous contrast media was not administered. Images were re corded and evaluated at appropriate window settings. Reformats: axial MIP of the chest, coronal and s agittal. For radiation dose reduction, the following was used: automated exposure control, adjustment of mA and/or kV according to patient size. COMPARISON: None. FINDINGS: Image quality: Diagnostic. Chest wall and lower neck: No thyroid nodule which requires sonographic follow up. No axillary or sup raclavicular adenopathy by size. Lungs and pleura: No consolidation. No pleural effusions. No pneumothorax. No suspicious pulmonary n odules which require follow up. Emphysema. Mediastinum: Heart size is normal. No pericardial effusion. No large vessel abnormality. No mediastin al adenopathy by size criteria. Small hiatal hernia Bones: No aggressive osseous abnormality. Chronic fracture deformity of right sixth rib. Callus forma tion of the sternum likely representing prior healed fracture. No acute displaced rib fracture. No ac karissa vertebral body compression fracture. Degenerative changes of the visualized spine. Upper Abdomen: Separately dictated. IMPRESSION: No traumatic injury to the chest. No acute displaced rib fractures as clinically queried. Reviewed by: Elvi Le MD, PhD on 10/18/2024 8:15 PM PST Approved by: Elvi Le MD, PhD on 10/18/2024 8:15 PM PST Station ID: [id number]
--- NOTE | 2024-10-18 20:38 | CT Report ---
PROCEDURE: CT Abdomen/Pelvis WO INDICATIONS: left hip pain, brusing, GLF TECHNIQUE: A CT scan of the abdomen and pelvis was performed without the use of intravenous contrast. Images we re recorded and evaluated at appropriate window settings. Reformats: coronal and sagittal. For radiat ion dose reduction, the following was used: automated exposure control, adjustment of mA and/or kV ac cording to patient size. COMPARISON: June 05, 2024 FINDINGS: Image quality: Diagnostic Lower chest: Scattered scarring and atelectasis. Mild lower lung groundglass opacities, nonspecific, possibly infectious/inflammatory. Mild distal esophageal nonspecific wall thickening. Mild fluid is s een in the distal esophagus. Coronary calcifications. Liver: Significant hepatic steatosis. No contour deforming mass. Solid organs are poorly evaluated wi thout IV contrast. Gallbladder and biliary system: Possible gallbladder sludge. Ectatic biliary system again seen measur ing up to 8 mm, similar to prior imaging Pancreas: No ductal dilation Spleen: Nonenlarged Adrenals: No discrete nodules Kidneys: No hydronephrosis or solid renal contour deforming mass There is no capsular hematoma in the solid organs within the limitations of noncontrast CT Vessels and lymph nodes: Atherosclerotic calcifications. No abdominal aortic aneurysm. No pathologic lymph nodes by size criteria. Bowel and peritoneum: No evidence of hemoperitoneum. No pathologic ascites. No small bowel obstructio n. Liquid distal colonic and rectal contents. Body wall: Unremarkable Pelvis: Bladder is unremarkable. Uterus is not seen Soft tissue contusion is seen adjacent the left hip. Bones: No displaced fracture is identified.. Scattered degenerative changes in the pelvis and spine. IMPRESSION: No intra-abdominal or intrapelvic traumatic abnormality is identified. Left hip soft tissue contusion is suspected. No displaced fracture or dislocation. Nonspecific lower lung groundglass opacities possibly infectious/inflammatory. Fluid and wall thickening of the distal esophagus, possibly reflux esophagitis, but nonspecific, cons ider endoscopy correlation if needed. Significant hepatic steatosis. Liquid distal colonic and rectal contents, correlate with diarrhea and any symptoms of colitis Limited noncontrast CT. Reviewed by: Ricky Rios MD on 10/18/2024 8:37 PM PST Approved by: Ricky Rios MD on 10/18/2024 8:37 PM PST Station ID: [id number]
[2024-10-18] MEDS ORDERED: THIAMINE 100 MG/1 ML 2 ML MDV ONE (20:52)
[2024-10-18] MEDS: THIAMINE INJ 400 MG in SODIUM CHLORIDE 0.9% 50 ML IV STA (20:56)
[2024-10-18] MEDS: chlordiazePOXIDE 25 MG CAPSULE PO SCH (20:57)
[2024-10-18 21:00] LABS: BILIRUBIN,URINE NEGATIVE (NEGATIVE); GLUCOSE, URINE (UA) NEGATIVE (NEGATIVE); KETONES,URINE (UA) >=80 mg/dL (NEGATIVE); LEUKOCYTE ESTERASE, URINE NEGATIVE (NEGATIVE); NITRITE,URINE NEGATIVE (NEGATIVE); OCCULT BLOOD,URINE SMALL (NEGATIVE); PROTEIN,URINE >=300 mg/dL (NEGATIVE); UROBILINOGEN,URINE 0.2 (NORMAL) E.U./dL (NORMAL)
[2024-10-18 21:12] LABS: CLARITY,URINE SL. CLOUDY (CLEAR)
[2024-10-18 21:22] LABS: BACTERIA,URINE Many /HPF (None Seen); SQUAMOUS EPITHELIAL CELL,UR MANY Squamous (<= Few)
[2024-10-18 21:23] LABS: AMPHETAMINE SCREEN,URINE NEGATIVE (NEGATIVE); BARBITURATE SCREEN,UR POSITIVE (NEGATIVE); BENZODIAZEPINES SCREEN, URINE NEGATIVE (NEGATIVE); BUPRENORPHINE SCREEN, URINE NEGATIVE (NEGATIVE); COCAINE SCREEN URINE NEGATIVE (NEGATIVE); METHADONE SCREEN, URINE NEGATIVE (NEGATIVE); METHAMPHETAMINES SCREEN, URINE NEGATIVE (NEGATIVE); OPIATE SCREEN, URINE NEGATIVE (NEGATIVE); OXYCODONE SCREEN, URINE NEGATIVE (NEGATIVE); THC CANNABINOID SCREEN, URINE NEGATIVE (NEGATIVE); TRICYCLIC ANTIDEPRESSANT,URINE NEGATIVE (NEGATIVE)
--- NOTE | 2024-10-18 21:30 | HISTORY & PHYSICAL EXAMINATION ---
Chief Complaint Chief Complaint Chief Complaint: Found down History of Present Illness Admitted From Admitted From:: ED History Obtained From History obtained from: Chart review, patient interview Exam Limitations: Actively withdrawing from alcohol History of Present Illness HPI Comment/Other: 64-year-old female history of alcohol dependence bordering on abuse presents to the emergency department after being found down for an unknown period of time. She has presented to the hospital for complications of alcohol abuse before. She was found by her renter on the floor with extensive bruising on both eyes, forehead, left hip. She is minimally interactive with her interview, reports that most days she drinks all day. She denies any hard alcohol intake, says that she mostly drinks beer. She reports very poor diet, the occasional toast or crackers. In the ER, CT head, facial bones, C-spine was without acute fracture but did show Soft tissue hematomas overlying frontal bone, periorbital region. CT chest without traumatic injury. CT abdomen/pelvis with some nonspecific lower lung groundglass opacities, wall thickening of the distal esophagus likely reflux esophagitis, hepatic steatosis. Elbow x-ray was normal, but her x-ray of her left toes showed a acute minimally displaced fracture of the fourth digit phalangeal base, fourth metatarsal neck, third digital proximal phalangeal medial base She had a leukocytosis of 20 in the setting of acute alcohol withdrawal. Her sodium is 121, CO2 20, anion gap 19. Her AST is 125, up from 101 earlier this month. Her lipase is 101. Her ethyl alcohol level was 100.1. Hospitalist was contacted for admission for multiple reasons including acute hyponatremia, impending delirium tremens, anion gap metabolic acidosis Meds/Allgy Home Medications Ambulatory Orders Medication Instructions Recorded Confirmed duloxetine 60 mg capsule,delayed 60 mg PO DAILY 11/21/23 07/13/24 release simvastatin 20 mg tablet (Zocor) 20 mg PO HS 11/21/23 07/13/24 thiamine mononitrate (vit B1) 100 100 mg PO DAILY 30 days #30 tabs 06/09/24 07/13/24 mg tablet (Vitamin B-1 (mononitrate)) albuterol sulfate 90 mcg/actuation 2 inhalation 07/13/24 07/13/24 aerosol inhaler blood sugar diagnostic [True 07/13/24 07/13/24 Metrix Glucose Test Strip] budesonide-formoterol HFA 160 2 inhalation 07/13/24 07/13/24 mcg-4.5 mcg/actuation aerosol inhaler (Symbicort) docusate sodium 100 mg capsule 100 mg PO QDAY 07/13/24 07/13/24 (Colace) lancets 30 gauge (BD Microtainer 07/13/24 07/13/24 Lancet) levalbuterol HCl 1.25 mg/3 mL mg inhalation 07/13/24 07/13/24 solution for nebulization mupirocin 2 % topical ointment 1 topical 07/13/24 07/13/24 nystatin 100,000 unit/gram topical 1 topical 07/13/24 07/13/24 cream triamcinolone acetonide 0.1 % 1 applic topical 07/13/24 07/13/24 topical cream amlodipine 5 mg tablet (Norvasc) 5 mg PO QDAY #90 tabs 07/17/24 07/17/24 gabapentin 600 mg tablet 1,200 mg (2 x 600 mg) PO TID #180 08/06/24 (Neurontin) tabs primidone 50 mg tablet See Rx Instructions .Route 08/06/24 .COMPLEX #270 tabs aspirin 81 mg tablet,delayed See Rx Instructions .Route 08/28/24 release .COMPLEX #100 tabs quetiapine 50 mg tablet 50 mg PO QPM #90 tabs 09/25/24 duloxetine 60 mg capsule,delayed 60 mg PO DAILY #30 caps 10/05/24 release gabapentin 300 mg capsule 300 mg PO TID #60 caps 10/05/24 lorazepam 1 mg tablet (Ativan) 1 mg PO TID PRN alcohol withdrawal 10/05/24 #14 tabs phenobarbital 30 mg tablet 30 mg PO BID PRN sedation #9 tabs 10/05/24 Allergies Allergies Allergy/AdvReac Type Severity Reaction Status Date / Time ciprofloxacin Allergy Severe Hives Verified 10/18/24 17:36 Sulfa (Sulfonamide Allergy Mild oral Verified 10/18/24 17:36 Antibiotics) blisters [facility] Medical History Medical History (Updated 10/18/24 @ 21:24 by Momo Carmona DNP) History of COPD History of diabetes mellitus Surgical History Surgical History H/O cervical spine surgery S/P hardware removal Status post open reduction and internal fixation (ORIF) of fracture Family History Family History (Updated 07/17/24 @ 15:16 by GARRET Juárez) Mother Osteoporosis Arthritis Cancer Anxiety Depressed Heart disease Hyperlipidemia Father Family history of lung cancer Other Suicide attempt Social History Social History Smoking Status: Current every day smoker Number of Years Smoked: 30 How many cigarettes a day do you smoke? (20 cigarettes=1 Pk): 30 Second hand tobacco smoke exposure: Yes Do you dip or chew tobacco?: No Patient requests smoking cessation consult: No Initiate information on smoking cessation: No Living arrangement: At home Living Condition: Other (Reportedly lives with two roomates.) Relationship: Living Situation Details: lives with room mate Level: Independent Home Mobility Equipment: Cane, Wheeled walker and Wheelchair Do you feel safe in your home environment?: Yes Suffered physical, verbal, emotional, or financial abuse?: No History of Abuse: No ETOH Use: Beer Frequency: Daily Number of Amount/day: 15 ETOH Use Details: Per patient unsure of quantity due to changes in beer sized. Estimates 10-15 12oz beers nightly Substance Use: denies use Substance Use Details: tried but didn't like how it made her feel POLST Patient has POLST: No POLST Status: Full Code Review of Systems ROS is limited due to alcohol withdrawal Constitutional Denies: Fever or Chills Eyes Reports: Eye discharge Cardiovascular Denies: Irregular heart rate, chest pain, palpitations or shortness of breath with exertion Respiratory Denies: Shortness of breath or Cough Gastrointestinal Denies: Abdominal pain Genitourinary Denies: Painful urination or Urinary frequency Musculoskeletal Reports: Back pain and Extremity pain Neurological Reports: General weakness, Dizziness and Involuntary movements (Tremors) Psychiatric Reports: Anxiety Exam Constitutional Ill-appearing female, Anxious, startled with approach HENMT Bruising on forehead, around both eyes. Mucoid discharge From eyes Neck/C-Spine visual inspection normal Chest Pain with palpation over ribs Respiratory breath sounds equal bilaterally Cardiovascular heart rate abnormal (tachycardic) Gastrointestinal tender to palpation (mild) Extremities No gross deformity, but pain in the left foot Neurology GCS 15 Psychiatry oriented x3 Skin Scattered abrasions, bruising Conclusion/Plan Problem List (1) Alcohol withdrawal: Plan: Reports drinking all day most days, poor food intake. States she only drinks beer Admitted to the ICU to monitor her during her early stages of withdrawal CIWA protocol with as needed Ativan Librium 25 mg p.o. every 6 400 mg thiamine once IV, 100 mg daily p.o. Seizure precautions Lipase was 101, suggesting pancreatic involvement Careful with fluid repletion as she is hyponatremic No pancreatic ductal dilation on CT abdomen/pelvis (2) Acute hyponatremia: Plan: Likely sony Dorantes Received 1 L NS bolus per ER provider Sodium checks Q4 Goal correction no more than 8 within 24 hours LR 125 (3) Closed fracture of toe: Plan: PT/OT (4) Metabolic acidosis: Plan: Likely because she is still intoxicated BMP in a.m. (5) COPD (chronic obstructive pulmonary disease): Plan: Restart home inhaler regimen, Pending pharmacy review Qualifiers: COPD type: unspecified COPD Qualified Code(s): J44.9 - Chronic obstructive pulmonary disease, unspecified (6) Depression: Plan: Restart home Cymbalta after pharmacy review (7) DM type 2 (diabetes mellitus, type 2): Plan: A1c was 5 on 06/05/2024. A1c in a.m. Not on any antidiabetic agents at home Qualifiers: Diabetes mellitus ocean [employer] intermediary insulin use: without snf use Diabetes mellitus complication status: without complication Qualified Code(s): E11.9 - Type 2 diabetes mellitus without complications Plan Check viral panel for groundglass opacities on CT scan Admit inpatient ICU for impending DTs Full code She names her tenant as her surrogate decision-maker Lab Results Lab results reviewed: Yes 10/18/24 17:42 10/18/24 17:42
[2024-10-18] MEDS ORDERED: NON FORMULARY MED (Albuterol Sulfate 90 mcg/actuation HFA aerosol inhaler) INH PRN (21:59)
[2024-10-18] MEDS ORDERED: ONDANSETRON 4 MG/2 ML VIAL IVP PRN (21:59)
[2024-10-18] MEDS ORDERED: PROCHLORPERAZINE 10 MG/2 ML VIAL IVP PRN (21:59)
[2024-10-18 22:56] LABS: ALBUMIN 3.7 g/dL (3.2-5.5); ALBUMIN/GLOBULIN RATIO 1.3 (1.0-2.2); BILIRUBIN,TOTAL 0.8 mg/dL (0.2-1.0); CALCIUM 7.7 mg/dL (8.5-10.3); CREATININE 0.3 mg/dL (0.6-1.3); POTASSIUM 3.9 mmol/L (3.5-4.5); TOTAL PROTEIN 6.5 g/dL (6.4-8.9)
[2024-10-18] MEDS: GABAPENTIN 300 MG CAPSULE PO SCH (22:57)
[2024-10-18] MEDS: QUEtiapine 25 MG TABLET PO SCH (22:57)
[2024-10-18] MEDS: ACETAMINOPHEN 500 MG TABLET PO SCH (22:57)
[2024-10-18] MEDS: LACTATED RINGERS 1,000 ML IV SCH (22:58)
[2024-10-18] MEDS: cefTRIAXone 1 GM in SODIUM CHLORIDE 0.9% MINIBAG 100 ML IV SCH (22:58)
[2024-10-18] MEDS: SODIUM CHLORIDE FLUSH 0.9% 10 ML SYRINGE IVP SCH (23:29)
[2024-10-19 05:05] LABS: CALCIUM, IONIZED 1.04 mmol/L (1.15-1.33); VBG PH 7.408 (7.31-7.41)
[2024-10-19 05:08] LABS: BASOPHILS % (AUTO) 0.3 %; EOSINOPHILS % (AUTO) 0.3 %; HCT - HEMATOCRIT 27.4 % (37.0-47.0); INR 1.2 (0.8-1.2); LYMPHOCYTES # (AUTO) 1.6 10^3/uL (1.5-3.5); LYMPHOCYTES % (AUTO) 13.9 %; MEAN CORPUSCULAR HEMOGLOBIN 25.5 pg (27.0-31.0); MEAN CORPUSCULAR HGB CONC 32.8 g/dL (32.0-36.0); MEAN CORPUSCULAR VOLUME 77.6 fL (81.0-99.0); MEAN PLATELET VOLUME 9.6 fL (7.9-10.8); MONOCYTES # (AUTO) 0.4 10^3/uL (0.0-1.0); MONOCYTES % (AUTO) 3.3 %; NEUTROPHILS # (AUTO) 9.7 10^3/uL (1.5-6.6); NEUTROPHILS % (AUTO) 81.5 %; PLT - PLATELET COUNT 188 10^3/uL (130-450); PT - PROTHROMBIN TIME 12.7 secs (9.9-12.6); RED BLOOD COUNT 3.53 10^6/uL (4.20-5.40); WHITE BLOOD COUNT 11.8 x10^3/uL (4.8-10.8)
[2024-10-19 05:19] LABS: CALCIUM 7.7 mg/dL (8.5-10.3); CREATININE 0.4 mg/dL (0.6-1.3); MAGNESIUM 1.8 mg/dL (1.7-2.3); PHOSPHORUS 3.3 mg/dL (2.5-5.0); POTASSIUM 3.5 mmol/L (3.5-4.5)
[2024-10-19] MEDS: MAGNESIUM OXIDE 400 MG TABLET PO ONE (06:13)
[2024-10-19] MEDS: POTASSIUM CHLORIDE 20 MEQ TABLET PO SCH (06:14)
[2024-10-19] MEDS: PANTOPRAZOLE 40 MG TABLET PO SCH (06:14)
[2024-10-19] MEDS: CARBOXYMETHYLCELLULOSE OPHTH DROPS EACHEYE PRN (06:14)
[2024-10-19] MEDS: CALCIUM GLUC 1,000MG/50ML-NACL 1,000 MG/50 ML BAG IV ONE ×2 (06:15→14:37)
[2024-10-19] MEDS: PRENATAL VITAMIN TABLET PO SCH (08:06)
[2024-10-19] MEDS: THIAMINE 100 MG TABLET PO SCH (08:06)
[2024-10-19] MEDS: amLODIPine 5 MG TABLET PO SCH (08:06)
[2024-10-19] MEDS: LORazepam 2 MG/ML VIAL IVP PRN (08:10)
[2024-10-19 10:43] LABS: B. PARAPERTUSSIS- RESP PCR PAN NOT DETECTED; B. PERTUSSIS- RESP PCR PANEL NOT DETECTED; C. PNEUMONIAE- RESP PCR PANEL NOT DETECTED; CORONAVIRUS 229E-RESP PCR NOT DETECTED; CORONAVIRUS HKU1-RESP PCR NOT DETECTED; CORONAVIRUS NL63-RESP PCR NOT DETECTED; CORONAVIRUS OC43-RESP PCR NOT DETECTED; HUMAN METAPNEUMOVIRUS NOT DETECTED; INFLUENZA A- RESP PCR PANEL NOT DETECTED; INFLUENZA B - RESP PCR PANEL NOT DETECTED; M. PNEUMONIAE- RESP PCR PANEL NOT DETECTED; PARAINFLUENZA VIRUS 1 NOT DETECTED; PARAINFLUENZA VIRUS 2 NOT DETECTED; PARAINFLUENZA VIRUS 4 NOT DETECTED; RHINOVIRUS/ENTEROVIRUS NOT DETECTED; RSV- RESP PCR PANEL NOT DETECTED; SARS-CoV-2 -RESP PCR PANEL NOT DETECTED
[2024-10-19] MEDS: FUROSEMIDE 20 MG/2 ML VIAL IVP STA (10:46)
[2024-10-19] MEDS: DEXAMETHASONE 10 MG/ML VIAL IVP ONE (10:47)
[2024-10-19] MEDS: SODIUM CHLORIDE 0.9% 1,000 ML IV SCH (10:47)
--- NOTE | 2024-10-19 11:34 | PROVIDER PROGRESS NOTE ---
Subjective Prog Note Date Prog Note Date: 10/19/24 Subjective Pt reports feeling: No change Subjective: Resting comfortably at time of my interview Current Medications Current Medications Current Medications: Current Medications Generic Name Dose Route Start Last Admin Trade Name Freq PRN Reason Stop Dose Admin Acetaminophen 1,000 mg 10/18/24 21:59 10/18/24 22:57 Acetaminophen 500 Mg Tablet PO 1,000 mg Q8H CALIXTO Administration Albuterol 2.5 mg 10/18/24 22:15 Albuterol Neb 2.5 Mg/3 Ml INH RTQID PRN Wheezing Amlodipine Besylate 5 mg 10/19/24 09:00 10/19/24 08:06 Amlodipine 5 Mg Tablet PO 5 mg DAILY CALIXTO Administration Budesonide 0.5 mg 10/19/24 07:00 Budesonide 0.5 Mg/2 Ml Neb INH RTBID CALIXTO Carboxymethylcellulose 1 drops 10/18/24 21:59 10/19/24 06:14 Carboxymethylcellulose Ophth Drops EACHEYE 1 drops Q4HR PRN Administration Dry Eye Chlordiazepoxide HCl 25 mg 10/18/24 21:00 10/19/24 06:13 Chlordiazepoxide 25 Mg Capsule PO 25 mg Q6HR CALIXTO Administration Dexamethasone 6 mg 10/20/24 08:00 Dexamethasone 4 Mg Tablet PO 10/23/24 08:01 DAILYWM CALIXTO Enoxaparin Sodium 40 mg 10/20/24 09:00 Enoxaparin 40 Mg/0.4 Ml Syringe SUBQ DAILY CALIXTO Formoterol Fumarate 20 mcg 10/19/24 07:00 Formoterol Fumarate Neb 20 Mcg/2 Ml INH RTBID CALIXTO Gabapentin 300 mg 10/18/24 22:00 10/19/24 06:14 Gabapentin 300 Mg Capsule PO 300 mg TID CALIXTO Administration Ceftriaxone Sodium 1 gm/ 100 mls @ 200 mls/hr 10/18/24 23:00 10/18/24 23:30 Sodium Chloride IV Infused Q24H CALIXTO Infusion Sodium Chloride 1,000 mls @ 75 mls/hr 10/19/24 11:00 10/19/24 10:47 Normal Saline 0.9% IV 75 mls/hr .[id number] CALIXTO Administration Lorazepam 2 - 20 mg 10/18/24 21:59 10/19/24 08:10 Lorazepam 2 Mg/Ml Vial IVP 2 mg Q15M PRN Administration RASS > 0 Protocol Ondansetron HCl 4 mg 10/18/24 21:59 Ondansetron 4 Mg/2 Ml Vial IVP Q6HR PRN Nausea / Vomiting Oxycodone HCl 5 mg 10/18/24 21:59 Oxycodone 5 Mg Tablet PO Q4HR PRN Pain 5 to 7 Pantoprazole Sodium 40 mg 10/19/24 07:00 10/19/24 06:14 Pantoprazole 40 Mg Tablet PO 40 mg QDAC CALIXTO Administration Polyethylene Glycol 17 gm 10/20/24 09:00 Polyethylene Glycol 3350 17 Gm Packet PO DAILY CALIXTO Multivit/Folic Acid/Iron 1 tab 10/19/24 09:00 10/19/24 08:06 Vitamin Tablet PO 1 tab DAILY CALIXTO Administration Prochlorperazine Edisylate 10 mg 10/18/24 21:59 Prochlorperazine 10 Mg/2 Ml Vial IVP Q6HR PRN Nausea / Vomiting Quetiapine Fumarate 50 mg 10/18/24 21:59 10/18/24 22:57 Quetiapine 25 Mg Tablet PO 50 mg QPM CALIXTO Administration Sodium Chloride 10 ml 10/19/24 01:00 10/19/24 08:06 Sodium Chloride Flush 0.9% 10 Ml Syringe IVP 10 ml 0100,0900,1700 CALIXTO Administration Sodium Chloride 10 ml 10/18/24 21:59 Sodium Chloride Flush 0.9% 10 Ml Syringe IVP PRN PRN NEEDED PER PROVIDER ORDERS Thiamine HCl 100 mg 10/19/24 09:00 10/19/24 08:06 Thiamine 100 Mg Tablet PO 100 mg DAILY CALIXTO Administration Objective Vital Signs/Intake & Output Reviewed Vital Signs: Yes Vital Signs: Vital Signs x48h Temp Pulse Resp BP Pulse Ox O2 Flow Rate 10/19/24 11:00 77 14 113/56 L 100 7 10/19/24 10:00 87 15 120/63 99 10/19/24 09:35 7 10/19/24 09:00 103 H 16 123/73 98 7 10/19/24 08:00 37.2 C 103 H 21 118/73 99 7 10/19/24 07:00 95 16 115/54 L 95 7 10/19/24 06:00 96 16 119/73 97 7 10/19/24 05:00 37.4 C 98 15 121/49 L 99 7 10/19/24 04:00 101 H 14 133/57 H 98 7 Intake & Output: Intake & Output 10/16/24 10/17/24 10/18/24 10/19/24 23:59 23:59 23:59 23:59 Intake Total 1154 / 1154 1602 / 1602 Output Total 425 / 425 700 / 700 Balance 729 / 729 902 / 902 Weight (kg) 68.5 kg 69.5 kg Objective General Appearance: positive No acute distress and Alert Eyes Bilateral: positive Normal inspection and Other (Periorbital bruising, Mucoid discharge from eyes) Respiratory: positive No respiratory distress and Rales Cardiovascular: positive Regular rate & rhythm Abdomen: positive Non-tender Skin: positive Other (Scattered bruises) Extremities: positive Other (Pain in left foot from broken toes) Neurologic/Psychiatric: positive Oriented x3 Lab Results 10/19/24 04:31 10/19/24 09:12 Other Labs: Lab Results x24hrs 10/19/24 10/19/24 10/19/24 Range/Units 09:45 09:12 07:57 WBC (4.8-10.8) x10^3/uL RBC (4.20-5.40) 10^6/uL Hgb (12.0-16.0) g/dL Hct (37.0-47.0) % MCV (81.0-99.0) fL MCH (27.0-31.0) pg MCHC (32.0-36.0) g/dL RDW (12.0-15.0) % Plt Count (130-450) 10^3/uL MPV (7.9-10.8) fL Neut # (Auto) Lymph # (Auto) Yates # (Auto) Eos # (Auto) Baso # (Auto) Absolute Nucleated RBC Total Counted Band Neuts % (Manual) (0 - 10) % Abnorm Lymph % (Manual) % Nucleated RBC % Neutrophils # (Manual) (1.5-6.6) 10^3/uL Lymphocytes # (Manual) (1.5-3.5) 10^3/uL Monocytes # (Manual) (0.0-1.0) 10^3/uL Eosinophils # (Manual) (0-0.7) 10^3/uL Basophils # (Manual) (0-0.1) 10^3/uL Differential Comment Manual Slide Review Platelet Estimate (NORMAL) Platelet Morphology (NORMAL) RBC Morph Micro Appear (NORMAL) PT (9.9-12.6) secs INR (0.8-1.2) VBG pH (7.31-7.41) Ionized Calcium (1.15-1.33) mmol/L Sodium 121 L (135-145) mmol/L Potassium (3.5-4.5) mmol/L Chloride (101-111) mmol/L Carbon Dioxide (21-32) mmol/L Anion Gap (6-13) BUN (6-20) mg/dL Creatinine (0.6-1.3) mg/dL Estimated GFR (MDRD) (>89) Glucose (74-104) mg/dL POC Whole Bld Glucose 93 (70-100) mg/dL Calcium (8.5-10.3) mg/dL Phosphorus (2.5-5.0) mg/dL Magnesium (1.7-2.3) mg/dL Total Bilirubin (0.2-1.0) mg/dL AST (10-42) IU/L ALT (10-60) IU/L Alkaline Phosphatase (42-121) IU/L Total Protein (6.4-8.9) g/dL Albumin (3.2-5.5) g/dL Globulin (2.1-4.2) g/dL Albumin/Globulin Ratio (1.0-2.2) Lipase (11-82) U/L Urine Color Urine Clarity (CLEAR) Urine pH (5.0-7.5) PH Ur Specific Hudson (1.002-1.030) Urine Protein (NEGATIVE) mg/dL Urine Glucose (UA) (NEGATIVE) mg/dL Urine Ketones (NEGATIVE) mg/dL Urine Occult Blood (NEGATIVE) Urine Nitrite (NEGATIVE) Urine Bilirubin (NEGATIVE) Urine Urobilinogen (NORMAL) E.U./dL Ur Leukocyte Esterase (NEGATIVE) Urine RBC (0-5) /HPF Urine WBC (0-5) /HPF Ur Squamous Epith Cells (<= Few) Urine Bacteria (None Seen) /HPF Ur Microscopic Review Urine Culture Comments Nasal Adenovirus (PCR) NOT DETECTED Nasal B. parapertussis DNA (PCR) NOT DETECTED Nasal Coronavir 229E PCR NOT DETECTED Nasal Coronavir HKU1 PCR NOT DETECTED Nasal Coronavir NL63 PCR NOT DETECTED Nasal Coronavir OC43 PCR NOT DETECTED Nasal Enterovir/Rhinovir PCR NOT DETECTED Nasal Influenza B PCR NOT DETECTED Nasal Influenza A PCR NOT DETECTED Nasal Parainfluen 1 PCR NOT DETECTED Nasal Parainfluen 2 PCR NOT DETECTED Nasal Parainfluen 3 PCR NOT DETECTED Nasal Parainfluen 4 PCR NOT DETECTED Nasal RSV (PCR) NOT DETECTED Nasal Screen MRSA (PCR) (NEGATIVE) Nasal B.pertussis DNA PCR NOT DETECTED Nasal C.pneumoniae (PCR) NOT DETECTED Hebert Human Metapneumo PCR NOT DETECTED Nasal M.pneumoniae (PCR) NOT DETECTED Nasal SARS-CoV-2 (PCR) NOT DETECTED Urine Opiates Screen (NEGATIVE) Ur Buprenorphine Scrn (NEGATIVE) Ur Oxycodone Screen (NEGATIVE) Urine Methadone Screen (NEGATIVE) Ur Barbiturates Screen (NEGATIVE) Ur Tricyclics Screen (NEGATIVE) Ur Phencyclidine Scrn (NEGATIVE) Ur Amphetamine Screen (NEGATIVE) U Methamphetamines Scrn (NEGATIVE) U Benzodiazepines Scrn (NEGATIVE) Urine Cocaine Screen (NEGATIVE) U Cannabinoids Screen (NEGATIVE) Ur Drug Screen Comment Ethyl Alcohol mg/dL Blood Type Antibody Screen 10/19/24 10/19/24 10/18/24 Range/Units 04:31 01:53 22:30 WBC 11.8 H (4.8-10.8) x10^3/uL RBC 3.53 L (4.20-5.40) 10^6/uL Hgb 9.0 L (12.0-16.0) g/dL Hct 27.4 L (37.0-47.0) % MCV 77.6 L (81.0-99.0) fL MCH 25.5 L (27.0-31.0) pg MCHC 32.8 (32.0-36.0) g/dL RDW 17.0 H (12.0-15.0) % Plt Count 188 (130-450) 10^3/uL MPV 9.6 (7.9-10.8) fL Neut # (Auto) 9.7 H Lymph # (Auto) 1.6 Yates # (Auto) 0.4 Eos # (Auto) 0.0 Baso # (Auto) 0.0 Absolute Nucleated RBC 0.00 Total Counted Band Neuts % (Manual) (0 - 10) % Abnorm Lymph % (Manual) % Nucleated RBC % 0.0 Neutrophils # (Manual) (1.5-6.6) 10^3/uL Lymphocytes # (Manual) (1.5-3.5) 10^3/uL Monocytes # (Manual) (0.0-1.0) 10^3/uL Eosinophils # (Manual) (0-0.7) 10^3/uL Basophils # (Manual) (0-0.1) 10^3/uL Differential Comment Manual Slide Review Platelet Estimate (NORMAL) Platelet Morphology (NORMAL) RBC Morph Micro Appear (NORMAL) PT 12.7 H (9.9-12.6) secs INR 1.2 (0.8-1.2) VBG pH 7.408 (7.31-7.41) Ionized Calcium 1.04 L (1.15-1.33) mmol/L Sodium 125 L 123 L 122 L (135-145) mmol/L Potassium 3.5 3.9 (3.5-4.5) mmol/L Chloride 89 L 88 L (101-111) mmol/L Carbon Dioxide 21 18 L (21-32) mmol/L Anion Gap 15.0 H 16.0 H (6-13) BUN 8 6 (6-20) mg/dL Creatinine 0.4 L 0.3 L (0.6-1.3) mg/dL Estimated GFR (MDRD) 161 225 (>89) Glucose 61 L 65 L (74-104) mg/dL POC Whole Bld Glucose (70-100) mg/dL Calcium 7.7 L 7.7 L (8.5-10.3) mg/dL Phosphorus 3.3 (2.5-5.0) mg/dL Magnesium 1.8 (1.7-2.3) mg/dL Total Bilirubin 0.8 (0.2-1.0) mg/dL AST 113 H (10-42) IU/L ALT 84 H (10-60) IU/L Alkaline Phosphatase 74 (42-121) IU/L Total Protein 6.5 (6.4-8.9) g/dL Albumin 3.7 (3.2-5.5) g/dL Globulin 2.8 (2.1-4.2) g/dL Albumin/Globulin Ratio 1.3 (1.0-2.2) Lipase (11-82) U/L Urine Color Urine Clarity (CLEAR) Urine pH (5.0-7.5) PH Ur Specific Hudson (1.002-1.030) Urine Protein (NEGATIVE) mg/dL Urine Glucose (UA) (NEGATIVE) mg/dL Urine Ketones (NEGATIVE) mg/dL Urine Occult Blood (NEGATIVE) Urine Nitrite (NEGATIVE) Urine Bilirubin (NEGATIVE) Urine Urobilinogen (NORMAL) E.U./dL Ur Leukocyte Esterase (NEGATIVE) Urine RBC (0-5) /HPF Urine WBC (0-5) /HPF Ur Squamous Epith Cells (<= Few) Urine Bacteria (None Seen) /HPF Ur Microscopic Review Urine Culture Comments Nasal Adenovirus (PCR) Nasal B. parapertussis DNA (PCR) Nasal Coronavir 229E PCR Nasal Coronavir HKU1 PCR Nasal Coronavir NL63 PCR Nasal Coronavir OC43 PCR Nasal Enterovir/Rhinovir PCR Nasal Influenza B PCR Nasal Influenza A PCR Nasal Parainfluen 1 PCR Nasal Parainfluen 2 PCR Nasal Parainfluen 3 PCR Nasal Parainfluen 4 PCR Nasal RSV (PCR) Nasal Screen MRSA (PCR) (NEGATIVE) Nasal B.pertussis DNA PCR Nasal C.pneumoniae (PCR) Hebert Human Metapneumo PCR Nasal M.pneumoniae (PCR) Nasal SARS-CoV-2 (PCR) Urine Opiates Screen (NEGATIVE) Ur Buprenorphine Scrn (NEGATIVE) Ur Oxycodone Screen (NEGATIVE) Urine Methadone Screen (NEGATIVE) Ur Barbiturates Screen (NEGATIVE) Ur Tricyclics Screen (NEGATIVE) Ur Phencyclidine Scrn (NEGATIVE) Ur Amphetamine Screen (NEGATIVE) U Methamphetamines Scrn (NEGATIVE) U Benzodiazepines Scrn (NEGATIVE) Urine Cocaine Screen (NEGATIVE) U Cannabinoids Screen (NEGATIVE) Ur Drug Screen Comment Ethyl Alcohol mg/dL Blood Type Antibody Screen 10/18/24 10/18/24 10/18/24 Range/Units 22:20 21:03 20:40 WBC (4.8-10.8) x10^3/uL RBC (4.20-5.40) 10^6/uL Hgb (12.0-16.0) g/dL Hct (37.0-47.0) % MCV (81.0-99.0) fL MCH (27.0-31.0) pg MCHC (32.0-36.0) g/dL RDW (12.0-15.0) % Plt Count (130-450) 10^3/uL MPV (7.9-10.8) fL Neut # (Auto) Lymph # (Auto) Yates # (Auto) Eos # (Auto) Baso # (Auto) Absolute Nucleated RBC Total Counted Band Neuts % (Manual) (0 - 10) % Abnorm Lymph % (Manual) % Nucleated RBC % Neutrophils # (Manual) (1.5-6.6) 10^3/uL Lymphocytes # (Manual) (1.5-3.5) 10^3/uL Monocytes # (Manual) (0.0-1.0) 10^3/uL Eosinophils # (Manual) (0-0.7) 10^3/uL Basophils # (Manual) (0-0.1) 10^3/uL Differential Comment Manual Slide Review Platelet Estimate (NORMAL) Platelet Morphology (NORMAL) RBC Morph Micro Appear (NORMAL) PT (9.9-12.6) secs INR (0.8-1.2) VBG pH (7.31-7.41) Ionized Calcium (1.15-1.33) mmol/L Sodium 123 L (135-145) mmol/L Potassium (3.5-4.5) mmol/L Chloride (101-111) mmol/L Carbon Dioxide (21-32) mmol/L Anion Gap (6-13) BUN (6-20) mg/dL Creatinine (0.6-1.3) mg/dL Estimated GFR (MDRD) (>89) Glucose (74-104) mg/dL POC Whole Bld Glucose (70-100) mg/dL Calcium (8.5-10.3) mg/dL Phosphorus (2.5-5.0) mg/dL Magnesium (1.7-2.3) mg/dL Total Bilirubin (0.2-1.0) mg/dL AST (10-42) IU/L ALT (10-60) IU/L Alkaline Phosphatase (42-121) IU/L Total Protein (6.4-8.9) g/dL Albumin (3.2-5.5) g/dL Globulin (2.1-4.2) g/dL Albumin/Globulin Ratio (1.0-2.2) Lipase (11-82) U/L Urine Color DARK YELLOW Urine Clarity SL. CLOUDY (CLEAR) Urine pH 6.0 (5.0-7.5) PH Ur Specific Hudson >=1.030 H (1.002-1.030) Urine Protein >=300 H (NEGATIVE) mg/dL Urine Glucose (UA) NEGATIVE (NEGATIVE) mg/dL Urine Ketones >=80 H (NEGATIVE) mg/dL Urine Occult Blood SMALL H (NEGATIVE) Urine Nitrite NEGATIVE (NEGATIVE) Urine Bilirubin NEGATIVE (NEGATIVE) Urine Urobilinogen 0.2 (NORMAL) (NORMAL) E.U./dL Ur Leukocyte Esterase NEGATIVE (NEGATIVE) Urine RBC 6-10 H (0-5) /HPF Urine WBC 4-5 (0-5) /HPF Ur Squamous Epith Cells MANY Squamous H (<= Few) Urine Bacteria Many H (None Seen) /HPF Ur Microscopic Review INDICATED Urine Culture Comments NOT INDICATED Nasal Adenovirus (PCR) Nasal B. parapertussis DNA (PCR) Nasal Coronavir 229E PCR Nasal Coronavir HKU1 PCR Nasal Coronavir NL63 PCR Nasal Coronavir OC43 PCR Nasal Enterovir/Rhinovir PCR Nasal Influenza B PCR Nasal Influenza A PCR Nasal Parainfluen 1 PCR Nasal Parainfluen 2 PCR Nasal Parainfluen 3 PCR Nasal Parainfluen 4 PCR Nasal RSV (PCR) Nasal Screen MRSA (PCR) NEGATIVE (NEGATIVE) Nasal B.pertussis DNA PCR Nasal C.pneumoniae (PCR) Hebert Human Metapneumo PCR Nasal M.pneumoniae (PCR) Nasal SARS-CoV-2 (PCR) Urine Opiates Screen NEGATIVE (NEGATIVE) Ur Buprenorphine Scrn NEGATIVE (NEGATIVE) Ur Oxycodone Screen NEGATIVE (NEGATIVE) Urine Methadone Screen NEGATIVE (NEGATIVE) Ur Barbiturates Screen POSITIVE H (NEGATIVE) Ur Tricyclics Screen NEGATIVE (NEGATIVE) Ur Phencyclidine Scrn NEGATIVE (NEGATIVE) Ur Amphetamine Screen NEGATIVE (NEGATIVE) U Methamphetamines Scrn NEGATIVE (NEGATIVE) U Benzodiazepines Scrn NEGATIVE (NEGATIVE) Urine Cocaine Screen NEGATIVE (NEGATIVE) U Cannabinoids Screen NEGATIVE (NEGATIVE) Ur Drug Screen Comment CUTOFF CONC BELOW: Ethyl Alcohol mg/dL Blood Type Antibody Screen 10/18/24 Range/Units 17:42 WBC 20.0 H (4.8-10.8) x10^3/uL RBC 4.79 (4.20-5.40) 10^6/uL Hgb 12.0 (12.0-16.0) g/dL Hct 36.5 L (37.0-47.0) % MCV 76.2 L (81.0-99.0) fL MCH 25.1 L (27.0-31.0) pg MCHC 32.9 (32.0-36.0) g/dL RDW 16.9 H (12.0-15.0) % Plt Count 268 (130-450) 10^3/uL MPV 8.9 (7.9-10.8) fL Neut # (Auto) Not Reportable Lymph # (Auto) Not Reportable Yates # (Auto) Not Reportable Eos # (Auto) Not Reportable Baso # (Auto) Not Reportable Absolute Nucleated RBC Not Reportable Total Counted 100 Band Neuts % (Manual) 1 (0 - 10) % Abnorm Lymph % (Manual) 0 % Nucleated RBC % Not Reportable Neutrophils # (Manual) 14.6 H (1.5-6.6) 10^3/uL Lymphocytes # (Manual) 0.8 L (1.5-3.5) 10^3/uL Monocytes # (Manual) 1.2 H (0.0-1.0) 10^3/uL Eosinophils # (Manual) 3.4 H (0-0.7) 10^3/uL Basophils # (Manual) 0.0 (0-0.1) 10^3/uL Differential Comment MANUAL DIFFERENTIAL Manual Slide Review Indicated Platelet Estimate NORMAL (130-450,000) (NORMAL) Platelet Morphology NORMAL APPEARANCE (NORMAL) RBC Morph Micro Appear NORMAL APPEARANCE (NORMAL) PT 12.1 (9.9-12.6) secs INR 1.1 (0.8-1.2) VBG pH (7.31-7.41) Ionized Calcium (1.15-1.33) mmol/L Sodium 121 L (135-145) mmol/L Potassium 3.8 (3.5-4.5) mmol/L Chloride 82 L (101-111) mmol/L Carbon Dioxide 20 L (21-32) mmol/L Anion Gap 19.0 H (6-13) BUN 7 (6-20) mg/dL Creatinine 0.3 L (0.6-1.3) mg/dL Estimated GFR (MDRD) 225 (>89) Glucose 85 (74-104) mg/dL POC Whole Bld Glucose (70-100) mg/dL Calcium 8.4 L (8.5-10.3) mg/dL Phosphorus (2.5-5.0) mg/dL Magnesium (1.7-2.3) mg/dL Total Bilirubin 0.7 (0.2-1.0) mg/dL AST 125 H (10-42) IU/L ALT 97 H (10-60) IU/L Alkaline Phosphatase 87 (42-121) IU/L Total Protein 7.5 (6.4-8.9) g/dL Albumin 4.1 (3.2-5.5) g/dL Globulin 3.4 (2.1-4.2) g/dL Albumin/Globulin Ratio 1.2 (1.0-2.2) Lipase 101 H (11-82) U/L Urine Color Urine Clarity (CLEAR) Urine pH (5.0-7.5) PH Ur Specific Hudson (1.002-1.030) Urine Protein (NEGATIVE) mg/dL Urine Glucose (UA) (NEGATIVE) mg/dL Urine Ketones (NEGATIVE) mg/dL Urine Occult Blood (NEGATIVE) Urine Nitrite (NEGATIVE) Urine Bilirubin (NEGATIVE) Urine Urobilinogen (NORMAL) E.U./dL Ur Leukocyte Esterase (NEGATIVE) Urine RBC (0-5) /HPF Urine WBC (0-5) /HPF Ur Squamous Epith Cells (<= Few) Urine Bacteria (None Seen) /HPF Ur Microscopic Review Urine Culture Comments Nasal Adenovirus (PCR) Nasal B. parapertussis DNA (PCR) Nasal Coronavir 229E PCR Nasal Coronavir HKU1 PCR Nasal Coronavir NL63 PCR Nasal Coronavir OC43 PCR Nasal Enterovir/Rhinovir PCR Nasal Influenza B PCR Nasal Influenza A PCR Nasal Parainfluen 1 PCR Nasal Parainfluen 2 PCR Nasal Parainfluen 3 PCR Nasal Parainfluen 4 PCR Nasal RSV (PCR) Nasal Screen MRSA (PCR) (NEGATIVE) Nasal B.pertussis DNA PCR Nasal C.pneumoniae (PCR) Hebert Human Metapneumo PCR Nasal M.pneumoniae (PCR) Nasal SARS-CoV-2 (PCR) Urine Opiates Screen (NEGATIVE) Ur Buprenorphine Scrn (NEGATIVE) Ur Oxycodone Screen (NEGATIVE) Urine Methadone Screen (NEGATIVE) Ur Barbiturates Screen (NEGATIVE) Ur Tricyclics Screen (NEGATIVE) Ur Phencyclidine Scrn (NEGATIVE) Ur Amphetamine Screen (NEGATIVE) U Methamphetamines Scrn (NEGATIVE) U Benzodiazepines Scrn (NEGATIVE) Urine Cocaine Screen (NEGATIVE) U Cannabinoids Screen (NEGATIVE) Ur Drug Screen Comment Ethyl Alcohol 100.1 mg/dL Blood Type A NEGATIVE Antibody Screen NEGATIVE Assessment/Plan Problem List (1) Alcohol withdrawal: Impression: Reports drinking all day most days, poor food intake. States she only drinks beer Admitted to the ICU to monitor her during her early stages of withdrawal CIWA protocol with as needed Ativan Librium 25 mg p.o. every 6 400 mg thiamine once IV, 100 mg daily p.o. Seizure precautions Lipase was 101, suggesting pancreatic involvement Careful with fluid repletion as she is hyponatremic No pancreatic ductal dilation on CT abdomen/pelvis 10/19/2024: Resting comfortably, can be aroused with light stimulation. Tremorous movements when awake. May be okay to come out of the ICU later today (2) Acute hyponatremia: Impression: Likely sony Dorantes Received 1 L NS bolus per ER provider Sodium checks Q4 Goal correction no more than 8 within 24 hours 10/19/2024: She has started to exhibit signs of fluid overload. I am changing her fluids from LR to normal saline at a lower rate and I have given her a one- time dose of Lasix (3) Closed fracture of toe: Impression: PT/OT Will need hard boot with ambulation (4) Metabolic acidosis: Impression: CO2 21 on a.m. chemistry, anion gap 15. Resolving (5) COPD (chronic obstructive pulmonary disease): Impression: Patient has required increasing amounts of oxygen overnight. This is likely multifactorial. There were groundglass opacities noted on her CT abdomen but not on her CT chest. I have ordered a viral panel which resulted as negative. She is not wheezing. I initially added a short course of steroid burst. I will continue this for now, though this is likely a fluid overload picture Continue formulary equivalent to home inhaler regimen Qualifiers: COPD type: unspecified COPD Qualified Code(s): J44.9 - Chronic obstructive pulmonary disease, unspecified (6) Depression: Impression: Continue home dose Cymbalta (7) DM type 2 (diabetes mellitus, type 2): Impression: A1c pending Has been hypoglycemic overnight, adding hypoglycemia protocol and ACHS Accu- Cheks Qualifiers: Diabetes mellitus group home insulin use: without group home use Diabetes mellitus complication status: without complication Qualified Code(s): E11.9 - Type 2 diabetes mellitus without complications (8) UTI (urinary tract infection): Impression: Urine culture was indicated from UA, Due to many bacteria seen on sample. This is likely a contaminant, but I will go ahead and cover her with Rocephin for now
[2024-10-19] MEDS: DULoxetine 60 MG CAPSULE PO SCH (12:11)
--- NOTE | 2024-10-19 12:26 | PHARMACY PROGRESS NOTE ---
Best Possible Medication History Admit Date and Time: 10/18/242054 Home Medications Medication Instructions Recorded Confirmed Type duloxetine 60 mg capsule,delayed 60 mg PO DAILY 11/21/23 10/19/24 History release thiamine mononitrate (vit B1) 100 100 mg PO DAILY 30 days #30 tabs 06/09/24 10/19/24 Rx mg tablet (Vitamin B-1 (mononitrate)) albuterol sulfate 90 mcg/actuation 2 puff inhalation Q4H PRN 07/13/24 10/19/24 History aerosol inhaler shortness of breath or wheezing blood sugar diagnostic [True 07/13/24 07/13/24 History Metrix Glucose Test Strip] docusate sodium 100 mg capsule 100 mg PO QDAY 07/13/24 10/19/24 History (Colace) lancets 30 gauge (BD Microtainer 07/13/24 07/13/24 History Lancet) amlodipine 5 mg tablet (Norvasc) 5 mg PO QDAY #90 tabs 07/17/24 10/19/24 Rx aspirin 81 mg tablet,delayed See Rx Instructions .Route 08/28/24 10/19/24 Rx release .COMPLEX #100 tabs quetiapine 50 mg tablet 50 mg PO QPM #90 tabs 09/25/24 10/19/24 Rx gabapentin 300 mg capsule 300 mg PO TID #60 caps 10/05/24 10/19/24 Rx lorazepam 1 mg tablet (Ativan) 1 mg PO TID PRN alcohol withdrawal 10/05/24 10/19/24 Rx #14 tabs Processed by: Pharmacy Medications reviewed in ED?: No Medication History completed: Yes Patient Interview: Pt unable to participate Secondary Source(s): Physician records, Pharmacy records, Insurance records and Previous admit records [facility] Statement: As the person ultimately responsible for medication therapy, providers are able to order a medication from an existing home medication list in [facility] via the "Reconcile Routine" prior to Confirmation of that medication by data support analyst. Such practice is discouraged except when the physician, in their clinical judgm ent, deems that a medical need exists for a medication without regard to previous use.
[2024-10-19 13:07] LABS: ESTIMATED AVERAGE GLUCOSE 114 mg/dL (70-100); HEMOGLOBIN A1c% 5.6 % (4.27-6.07)
[2024-10-19 13:51] LABS: CALCIUM, IONIZED 1.06 mmol/L (1.15-1.33); VBG PH 7.486 (7.31-7.41)
[2024-10-19 13:59] LABS: MAGNESIUM 1.6 mg/dL (1.7-2.3); POTASSIUM 3.9 mmol/L (3.5-4.5)
[2024-10-19] MEDS: POTASSIUM CHLORIDE 20 MEQ TABLET PO ONE (14:36)
[2024-10-19] MEDS: GABAPENTIN 400 MG CAPSULE PO SCH (14:36)
[2024-10-19] MEDS: MAGNESIUM SULFATE 2 GRAM 2 GM/50 ML BAG IV ONE (14:37)
[2024-10-19 17:34] LABS: CALCIUM, IONIZED 1.1 mmol/L (1.15-1.33); VBG PH 7.499 (7.31-7.41)
[2024-10-19 17:38] LABS: MAGNESIUM 2.2 mg/dL (1.7-2.3); POTASSIUM 4.3 mmol/L (3.5-4.5)
[2024-10-19] MEDS: oxyCODONE 5 MG TABLET PO PRN (19:24)
[2024-10-19] MEDS: ATORVASTATIN 10 MG TABLET PO SCH (21:30)
[2024-10-19] MEDS: NICOTINE 21 MG PATCH TOP SCH (21:51)
[2024-10-19 21:59] LABS: THYROID STIMULATING HORMONE 0.77 uIU/mL (0.34-5.60)
[2024-10-19 22:16] LABS: SODIUM, URINE 18.2 mmol/L
[2024-10-19 22:24] LABS: CREATININE,URINE 61.4 mg/dL
[2024-10-19] MEDS: SODIUM CHLORIDE 1 GM TABLET PO SCH (23:29)
[2024-10-20 05:29] LABS: BASOPHILS % (AUTO) 0.2 %; EOSINOPHILS # (AUTO) 0.1 10^3/uL (0.0-0.7); EOSINOPHILS % (AUTO) 0.4 %; LYMPHOCYTES # (AUTO) 0.8 10^3/uL (1.5-3.5); LYMPHOCYTES % (AUTO) 6.4 %; MEAN CORPUSCULAR HEMOGLOBIN 25.2 pg (27.0-31.0); MEAN CORPUSCULAR VOLUME 78.9 fL (81.0-99.0); MEAN PLATELET VOLUME 9.9 fL (7.9-10.8); MONOCYTES # (AUTO) 0.4 10^3/uL (0.0-1.0); MONOCYTES % (AUTO) 3.3 %; NEUTROPHILS # (AUTO) 11.3 10^3/uL (1.5-6.6); NEUTROPHILS % (AUTO) 89.1 %; PLT - PLATELET COUNT 182 10^3/uL (130-450); RED BLOOD COUNT 3.17 10^6/uL (4.20-5.40); RED CELL DISTRIBUTION WIDTH 17.2 % (12.0-15.0); WHITE BLOOD COUNT 12.7 x10^3/uL (4.8-10.8)
[2024-10-20 05:33] LABS: CALCIUM, IONIZED 1.09 mmol/L (1.15-1.33); VBG PH 7.473 (7.31-7.41)
[2024-10-20 05:45] LABS: CALCIUM 7.7 mg/dL (8.5-10.3); CREATININE 0.2 mg/dL (0.6-1.3); MAGNESIUM 1.7 mg/dL (1.7-2.3); PHOSPHORUS 2.3 mg/dL (2.5-5.0); POTASSIUM 3.2 mmol/L (3.5-4.5)
[2024-10-20] MEDS: CALCIUM GLUC 1,000MG/50ML-NACL 1,000 MG/50 ML BAG IV ONE (06:20)
[2024-10-20] MEDS: NEUTRA-PHOS 250 MG TABLET PO SCH (06:21)
[2024-10-20] MEDS: MAGNESIUM OXIDE 400 MG TABLET PO ONE (06:21)
[2024-10-20] MEDS: SODIUM CHLORIDE FLUSH 0.9% 10 ML SYRINGE IVP PRN (06:22)
[2024-10-20] MEDS ORDERED: dexAMETHasone 4 MG TABLET PO SCH (08:00)
[2024-10-20] MEDS: FORMOTEROL FUMARATE NEB 20 MCG/2 ML INH SCH (08:02)
[2024-10-20] MEDS: BUDESONIDE 0.5 MG/2 ML NEB INH SCH (08:02)
[2024-10-20] MEDS: polyethylene glycoL 3350 17 GM PACKET PO SCH (08:07)
[2024-10-20] MEDS: FORMOTEROL FUMARATE NEB 20 MCG/2 ML INH ONE (08:39)
[2024-10-20] MEDS: predniSONE 20 MG TABLET PO SCH (09:08)
[2024-10-20] MEDS: ENOXAPARIN 40 MG/0.4 ML SYRINGE SUBQ SCH (09:09)
[2024-10-20 09:55] LABS: CALCIUM 8.2 mg/dL (8.5-10.3); MAGNESIUM 1.7 mg/dL (1.7-2.3); POTASSIUM 3.1 mmol/L (3.5-4.5)
[2024-10-20 10:00] LABS: PHOSPHORUS 2.3 mg/dL (2.5-5.0)
--- NOTE | 2024-10-20 10:28 | PROVIDER PROGRESS NOTE ---
<Statement entered by Momo Carmona DNP - 10/20/24 16:47> Patient was seen and examined by me with a separate encounter after being seen by SAUL student. I reviewed the student's documentation including patient history, physical examination, laboratory, imaging, clinical assessment and treatment plan. I have discussed the management of the patient with the student, and with the patient. There are no changes. Fluid overload evidenced on chest x-ray, adding echocardiogram to evaluate for heart failure. De-escalating CIWA protocol. Stopped NS, continue to trend sodium Subjective Prog Note Date Prog Note Date: 10/20/24 Prog Note Time: 14:11 Subjective Pt reports feeling: Improved Subjective: Marcia is feeling alright this afternoon. She is concerned about her history of falls and upset that she had another fall. She reports an intermittent productive cough without any shortness of breath. She denies any chest pain/squeezing/discomfort. She also reports some pain in the front and periorbital region of her face where her bruising is. She denies any other pain. She has an appetite. Current Medications Current Medications Current Medications: Current Medications Generic Name Dose Route Start Last Admin Trade Name Freq PRN Reason Stop Dose Admin Acetaminophen 1,000 mg 10/18/24 21:59 10/20/24 06:20 Acetaminophen 500 Mg Tablet PO 1,000 mg Q8H CALIXTO Administration Albuterol 2.5 mg 10/18/24 22:15 Albuterol Neb 2.5 Mg/3 Ml INH RTQID PRN Wheezing Amlodipine Besylate 5 mg 10/19/24 09:00 10/20/24 09:09 Amlodipine 5 Mg Tablet PO 5 mg DAILY CALIXTO Administration Atorvastatin Calcium 10 mg 10/19/24 21:00 10/19/24 21:30 Atorvastatin 10 Mg Tablet PO 10 mg QPM CALIXTO Administration Budesonide 0.5 mg 10/19/24 07:00 10/20/24 08:36 Budesonide 0.5 Mg/2 Ml Neb INH 0.5 mg RTBID CALIXTO Administration Carboxymethylcellulose 1 drops 10/18/24 21:59 10/19/24 06:14 Carboxymethylcellulose Ophth Drops EACHEYE 1 drops Q4HR PRN Administration Dry Eye Chlordiazepoxide HCl 25 mg 10/18/24 21:00 10/20/24 06:20 Chlordiazepoxide 25 Mg Capsule PO 25 mg Q6HR CALIXTO Administration Duloxetine HCl 60 mg 10/19/24 12:00 10/20/24 09:09 Duloxetine 60 Mg Capsule PO 60 mg DAILY CALIXTO Administration Enoxaparin Sodium 40 mg 10/20/24 09:00 10/20/24 09:09 Enoxaparin 40 Mg/0.4 Ml Syringe SUBQ 40 mg DAILY CALIXTO Administration Formoterol Fumarate 20 mcg 10/19/24 07:00 10/20/24 08:36 Formoterol Fumarate Neb 20 Mcg/2 Ml INH 20 mcg RTBID CALIXTO Administration Gabapentin 1,200 mg 10/19/24 14:00 10/20/24 06:21 Gabapentin 400 Mg Capsule PO 1,200 mg TID CALIXTO Administration Ceftriaxone Sodium 1 gm/ 100 mls @ 200 mls/hr 10/18/24 23:00 10/20/24 07:59 Sodium Chloride IV Infused Q24H CALIXTO Infusion Sodium Chloride 1,000 mls @ 100 mls/hr 10/19/24 11:00 10/19/24 23:43 Normal Saline 0.9% IV 100 mls/hr .Q10H CALIXTO Administration Lorazepam 2 - 20 mg 10/18/24 21:59 10/20/24 06:22 Lorazepam 2 Mg/Ml Vial IVP 2 mg Q15M PRN Administration RASS > 0 Protocol Nicotine 1 patch 10/19/24 21:07 10/20/24 09:09 Nicotine 21 Mg Patch TOP 1 patch DAILY CALIXTO Administration Ondansetron HCl 4 mg 10/18/24 21:59 Ondansetron 4 Mg/2 Ml Vial IVP Q6HR PRN Nausea / Vomiting Oxycodone HCl 5 mg 10/18/24 21:59 10/19/24 19:24 Oxycodone 5 Mg Tablet PO 5 mg Q4HR PRN Administration Pain 5 to 7 Pantoprazole Sodium 40 mg 10/19/24 07:00 10/20/24 06:21 Pantoprazole 40 Mg Tablet PO 40 mg QDAC CALIXTO Administration Polyethylene Glycol 17 gm 10/20/24 09:00 10/20/24 08:07 Polyethylene Glycol 3350 17 Gm Packet PO Not Given DAILY CALIXTO Prednisone 40 mg 10/20/24 08:00 10/20/24 09:08 Prednisone 20 Mg Tablet PO 10/23/24 08:01 40 mg DAILYWM CALIXTO Administration Multivit/Folic Acid/Iron 1 tab 10/19/24 09:00 10/20/24 09:09 Vitamin Tablet PO 1 tab DAILY CALIXTO Administration Prochlorperazine Edisylate 10 mg 10/18/24 21:59 Prochlorperazine 10 Mg/2 Ml Vial IVP Q6HR PRN Nausea / Vomiting Quetiapine Fumarate 50 mg 10/18/24 21:59 10/19/24 21:30 Quetiapine 25 Mg Tablet PO 50 mg QPM CALIXTO Administration Sodium Chloride 10 ml 10/19/24 01:00 10/20/24 09:10 Sodium Chloride Flush 0.9% 10 Ml Syringe IVP 10 ml 0100,0900,1700 CALIXTO Administration Sodium Chloride 10 ml 10/18/24 21:59 10/20/24 06:22 Sodium Chloride Flush 0.9% 10 Ml Syringe IVP 10 ml PRN PRN Administration NEEDED PER PROVIDER ORDERS Sodium Chloride 2 gm 10/19/24 23:00 10/20/24 05:16 Sodium Chloride 1 Gm Tablet PO 2 gm Q6H CALIXTO Administration Thiamine HCl 100 mg 10/19/24 09:00 10/20/24 09:09 Thiamine 100 Mg Tablet PO 100 mg DAILY CALIXTO Administration Objective Vital Signs/Intake & Output Reviewed Vital Signs: Yes Vital Signs: Vital Signs x48h Temp Pulse Pulse Resp BP Pulse Ox O2 Flow Rate 10/20/24 09:00 82 23 124/65 91 L 2 10/20/24 08:44 87 18 2 10/20/24 08:44 4 10/20/24 08:00 36.8 C 90 18 126/63 97 7 10/20/24 07:00 81 16 124/65 98 7 10/20/24 06:00 77 15 120/58 L 97 7 10/20/24 05:00 95 20 133/63 H 100 10 10/20/24 04:00 94 21 109/61 96 10 10/20/24 03:00 36.8 C 94 18 124/50 L 88 L 3 Intake & Output: Intake & Output 10/17/24 10/18/24 10/19/24 10/20/24 23:59 23:59 23:59 23:59 Intake Total 1154 / 1154 3912 / 3912 390 / 390 Output Total 425 / 425 2255 / 2255 445 / 445 Balance 729 / 729 1657 / 1657 -55 / -55 Weight (kg) 68.5 kg 68.5 kg 72.5 kg Objective General Appearance: positive No acute distress and Alert (sitting up in bed watching TV) Eyes Bilateral: positive PERRL, EOMI, Conjunctivae nml, No scleral icterus and Other (significant bilateral periorbital ecchymosis ) ENT: positive No signs of dehydration; negative Purulent nasal drainage Neck: positive Thyroid nml, No JVD, Trachea midline and Lymphadenopathy (R) (palpable mobile cervical lymph node with reported tenderness to palpation); negative Lymphadenopathy (L) Respiratory: positive No respiratory distress and Rales (anterior and posterior diffuse crackles across all bowen ); negative Breath sounds nml or Wheezes Cardiovascular: positive Regular rate & rhythm Abdomen: positive Non-tender and No distention Skin: positive Warm and Dry; negative Color nml (various areas of ecchymosis (bilateral periorbital, forehead, right elbow, left foot)), No rash (visualized legs, arms, back, chest, face ), Cyanosis or Diaphoresis Extremities: positive No pedal edema; negative Nml appearance (some mild non- pitting edema and bruising along left foot that is fractured ), Calf tenderness or Primo's sign/cords Neurologic/Psychiatric: positive Oriented x3, Sensation nml (grossly intact to light tough hands and feet ) and Mood/affect nml; negative Motor nml (constant tremor in bilateral hands, tremor with movement in bilateral legs ), Facial droop or Slurred/abnml speech Lab Results 10/20/24 05:16 10/20/24 14:14 Other Labs: Lab Results x24hrs 10/20/24 10/20/24 10/20/24 Range/Units 09:22 07:59 05:16 WBC 12.7 H (4.8-10.8) x10^3/uL RBC 3.17 L (4.20-5.40) 10^6/uL Hgb 8.0 L (12.0-16.0) g/dL Hct 25.0 L (37.0-47.0) % MCV 78.9 L (81.0-99.0) fL MCH 25.2 L (27.0-31.0) pg MCHC 32.0 (32.0-36.0) g/dL RDW 17.2 H (12.0-15.0) % Plt Count 182 (130-450) 10^3/uL MPV 9.9 (7.9-10.8) fL Neut # (Auto) 11.3 H (1.5-6.6) 10^3/uL Lymph # (Auto) 0.8 L (1.5-3.5) 10^3/uL [place] # (Auto) 0.4 (0.0-1.0) 10^3/uL Eos # (Auto) 0.1 (0.0-0.7) 10^3/uL Baso # (Auto) 0.0 (0.0-0.1) 10^3/uL Absolute Nucleated RBC 0.00 x10^3/uL Nucleated RBC % 0.0 /100WBC VBG pH 7.473 H (7.31-7.41) Ionized Calcium 1.09 L (1.15-1.33) mmol/L Sodium 124 L 123 L (135-145) mmol/L Potassium 3.1 L 3.2 L (3.5-4.5) mmol/L Chloride 90 L (101-111) mmol/L Carbon Dioxide 27 (21-32) mmol/L Anion Gap 6.0 (6-13) BUN 8 (6-20) mg/dL Creatinine 0.2 L (0.6-1.3) mg/dL Estimated GFR (MDRD) 359 (>89) Glucose 140 H (74-104) mg/dL POC Whole Bld Glucose 178 (70-100) mg/dL Estimat Average Glucose (70-100) mg/dL Hemoglobin A1c % (4.27-6.07) % Calcium 8.2 L 7.7 L (8.5-10.3) mg/dL Phosphorus 2.3 L 2.3 L (2.5-5.0) mg/dL Magnesium 1.7 1.7 (1.7-2.3) mg/dL TSH (0.34-5.60) uIU/mL Urine Creatinine mg/dL Urine Sodium mmol/L Nasal Adenovirus (PCR) Nasal B. parapertussis DNA (PCR) Nasal Coronavir 229E PCR Nasal Coronavir HKU1 PCR Nasal Coronavir NL63 PCR Nasal Coronavir OC43 PCR Nasal Enterovir/Rhinovir PCR Nasal Influenza B PCR Nasal Influenza A PCR Nasal Parainfluen 1 PCR Nasal Parainfluen 2 PCR Nasal Parainfluen 3 PCR Nasal Parainfluen 4 PCR Nasal RSV (PCR) Nasal B.pertussis DNA PCR Nasal C.pneumoniae (PCR) Hebert Human Metapneumo PCR Nasal M.pneumoniae (PCR) Nasal SARS-CoV-2 (PCR) 10/20/24 10/19/24 10/19/24 Range/Units 01:46 21:21 21:11 WBC (4.8-10.8) x10^3/uL RBC (4.20-5.40) 10^6/uL Hgb (12.0-16.0) g/dL Hct (37.0-47.0) % MCV (81.0-99.0) fL MCH (27.0-31.0) pg MCHC (32.0-36.0) g/dL RDW (12.0-15.0) % Plt Count (130-450) 10^3/uL MPV (7.9-10.8) fL Neut # (Auto) (1.5-6.6) 10^3/uL Lymph # (Auto) (1.5-3.5) 10^3/uL [place] # (Auto) (0.0-1.0) 10^3/uL Eos # (Auto) (0.0-0.7) 10^3/uL Baso # (Auto) (0.0-0.1) 10^3/uL Absolute Nucleated RBC x10^3/uL Nucleated RBC % /100WBC VBG pH (7.31-7.41) Ionized Calcium (1.15-1.33) mmol/L Sodium 122 L 120 L* (135-145) mmol/L Potassium (3.5-4.5) mmol/L Chloride (101-111) mmol/L Carbon Dioxide (21-32) mmol/L Anion Gap (6-13) BUN (6-20) mg/dL Creatinine (0.6-1.3) mg/dL Estimated GFR (MDRD) (>89) Glucose (74-104) mg/dL POC Whole Bld Glucose (70-100) mg/dL Estimat Average Glucose (70-100) mg/dL Hemoglobin A1c % (4.27-6.07) % Calcium (8.5-10.3) mg/dL Phosphorus (2.5-5.0) mg/dL Magnesium (1.7-2.3) mg/dL TSH 0.77 (0.34-5.60) uIU/mL Urine Creatinine 61.4 mg/dL Urine Sodium 18.2 mmol/L Nasal Adenovirus (PCR) Nasal B. parapertussis DNA (PCR) Nasal Coronavir 229E PCR Nasal Coronavir HKU1 PCR Nasal Coronavir NL63 PCR Nasal Coronavir OC43 PCR Nasal Enterovir/Rhinovir PCR Nasal Influenza B PCR Nasal Influenza A PCR Nasal Parainfluen 1 PCR Nasal Parainfluen 2 PCR Nasal Parainfluen 3 PCR Nasal Parainfluen 4 PCR Nasal RSV (PCR) Nasal B.pertussis DNA PCR Nasal C.pneumoniae (PCR) Hebert Human Metapneumo PCR Nasal M.pneumoniae (PCR) Nasal SARS-CoV-2 (PCR) 10/19/24 10/19/24 10/19/24 Range/Units 20:44 17:21 17:02 WBC (4.8-10.8) x10^3/uL RBC (4.20-5.40) 10^6/uL Hgb (12.0-16.0) g/dL Hct (37.0-47.0) % MCV (81.0-99.0) fL MCH (27.0-31.0) pg MCHC (32.0-36.0) g/dL RDW (12.0-15.0) % Plt Count (130-450) 10^3/uL MPV (7.9-10.8) fL Neut # (Auto) (1.5-6.6) 10^3/uL Lymph # (Auto) (1.5-3.5) 10^3/uL [place] # (Auto) (0.0-1.0) 10^3/uL Eos # (Auto) (0.0-0.7) 10^3/uL Baso # (Auto) (0.0-0.1) 10^3/uL Absolute Nucleated RBC x10^3/uL Nucleated RBC % /100WBC VBG pH 7.499 H (7.31-7.41) Ionized Calcium 1.10 L (1.15-1.33) mmol/L Sodium 121 L (135-145) mmol/L Potassium 4.3 (3.5-4.5) mmol/L Chloride (101-111) mmol/L Carbon Dioxide (21-32) mmol/L Anion Gap (6-13) BUN (6-20) mg/dL Creatinine (0.6-1.3) mg/dL Estimated GFR (MDRD) (>89) Glucose (74-104) mg/dL POC Whole Bld Glucose 173 172 (70-100) mg/dL Estimat Average Glucose (70-100) mg/dL Hemoglobin A1c % (4.27-6.07) % Calcium (8.5-10.3) mg/dL Phosphorus (2.5-5.0) mg/dL Magnesium 2.2 (1.7-2.3) mg/dL TSH (0.34-5.60) uIU/mL Urine Creatinine mg/dL Urine Sodium mmol/L Nasal Adenovirus (PCR) Nasal B. parapertussis DNA (PCR) Nasal Coronavir 229E PCR Nasal Coronavir HKU1 PCR Nasal Coronavir NL63 PCR Nasal Coronavir OC43 PCR Nasal Enterovir/Rhinovir PCR Nasal Influenza B PCR Nasal Influenza A PCR Nasal Parainfluen 1 PCR Nasal Parainfluen 2 PCR Nasal Parainfluen 3 PCR Nasal Parainfluen 4 PCR Nasal RSV (PCR) Nasal B.pertussis DNA PCR Nasal C.pneumoniae (PCR) Hebert Human Metapneumo PCR Nasal M.pneumoniae (PCR) Nasal SARS-CoV-2 (PCR) 10/19/24 10/19/24 10/19/24 Range/Units 13:39 11:58 09:45 WBC (4.8-10.8) x10^3/uL RBC (4.20-5.40) 10^6/uL Hgb (12.0-16.0) g/dL Hct (37.0-47.0) % MCV (81.0-99.0) fL MCH (27.0-31.0) pg MCHC (32.0-36.0) g/dL RDW (12.0-15.0) % Plt Count (130-450) 10^3/uL MPV (7.9-10.8) fL Neut # (Auto) (1.5-6.6) 10^3/uL Lymph # (Auto) (1.5-3.5) 10^3/uL [place] # (Auto) (0.0-1.0) 10^3/uL Eos # (Auto) (0.0-0.7) 10^3/uL Baso # (Auto) (0.0-0.1) 10^3/uL Absolute Nucleated RBC x10^3/uL Nucleated RBC % /100WBC VBG pH 7.486 H (7.31-7.41) Ionized Calcium 1.06 L (1.15-1.33) mmol/L Sodium 122 L (135-145) mmol/L Potassium 3.9 (3.5-4.5) mmol/L Chloride (101-111) mmol/L Carbon Dioxide (21-32) mmol/L Anion Gap (6-13) BUN (6-20) mg/dL Creatinine (0.6-1.3) mg/dL Estimated GFR (MDRD) (>89) Glucose (74-104) mg/dL POC Whole Bld Glucose 153 (70-100) mg/dL Estimat Average Glucose (70-100) mg/dL Hemoglobin A1c % (4.27-6.07) % Calcium (8.5-10.3) mg/dL Phosphorus (2.5-5.0) mg/dL Magnesium 1.6 L (1.7-2.3) mg/dL TSH (0.34-5.60) uIU/mL Urine Creatinine mg/dL Urine Sodium mmol/L Nasal Adenovirus (PCR) NOT DETECTED Nasal B. parapertussis DNA (PCR) NOT DETECTED Nasal Coronavir 229E PCR NOT DETECTED Nasal Coronavir HKU1 PCR NOT DETECTED Nasal Coronavir NL63 PCR NOT DETECTED Nasal Coronavir OC43 PCR NOT DETECTED Nasal Enterovir/Rhinovir PCR NOT DETECTED Nasal Influenza B PCR NOT DETECTED Nasal Influenza A PCR NOT DETECTED Nasal Parainfluen 1 PCR NOT DETECTED Nasal Parainfluen 2 PCR NOT DETECTED Nasal Parainfluen 3 PCR NOT DETECTED Nasal Parainfluen 4 PCR NOT DETECTED Nasal RSV (PCR) NOT DETECTED Nasal B.pertussis DNA PCR NOT DETECTED Nasal C.pneumoniae (PCR) NOT DETECTED Hebert Human Metapneumo PCR NOT DETECTED Nasal M.pneumoniae (PCR) NOT DETECTED Nasal SARS-CoV-2 (PCR) NOT DETECTED 10/19/24 Range/Units 04:31 WBC (4.8-10.8) x10^3/uL RBC (4.20-5.40) 10^6/uL Hgb (12.0-16.0) g/dL Hct (37.0-47.0) % MCV (81.0-99.0) fL MCH (27.0-31.0) pg MCHC (32.0-36.0) g/dL RDW (12.0-15.0) % Plt Count (130-450) 10^3/uL MPV (7.9-10.8) fL Neut # (Auto) (1.5-6.6) 10^3/uL Lymph # (Auto) (1.5-3.5) 10^3/uL [place] # (Auto) (0.0-1.0) 10^3/uL Eos # (Auto) (0.0-0.7) 10^3/uL Baso # (Auto) (0.0-0.1) 10^3/uL Absolute Nucleated RBC x10^3/uL Nucleated RBC % /100WBC VBG pH (7.31-7.41) Ionized Calcium (1.15-1.33) mmol/L Sodium (135-145) mmol/L Potassium (3.5-4.5) mmol/L Chloride (101-111) mmol/L Carbon Dioxide (21-32) mmol/L Anion Gap (6-13) BUN (6-20) mg/dL Creatinine (0.6-1.3) mg/dL Estimated GFR (MDRD) (>89) Glucose (74-104) mg/dL POC Whole Bld Glucose (70-100) mg/dL Estimat Average Glucose 114 H (70-100) mg/dL Hemoglobin A1c % 5.6 (4.27-6.07) % Calcium (8.5-10.3) mg/dL Phosphorus (2.5-5.0) mg/dL Magnesium (1.7-2.3) mg/dL TSH (0.34-5.60) uIU/mL Urine Creatinine mg/dL Urine Sodium mmol/L Nasal Adenovirus (PCR) Nasal B. parapertussis DNA (PCR) Nasal Coronavir 229E PCR Nasal Coronavir HKU1 PCR Nasal Coronavir NL63 PCR Nasal Coronavir OC43 PCR Nasal Enterovir/Rhinovir PCR Nasal Influenza B PCR Nasal Influenza A PCR Nasal Parainfluen 1 PCR Nasal Parainfluen 2 PCR Nasal Parainfluen 3 PCR Nasal Parainfluen 4 PCR Nasal RSV (PCR) Nasal B.pertussis DNA PCR Nasal C.pneumoniae (PCR) Hebert Human Metapneumo PCR Nasal M.pneumoniae (PCR) Nasal SARS-CoV-2 (PCR) Diagnostic Imaging Diagnostic Imaging Results: positive Final report reviewed Diagnostic Imaging Comments: Cervical Spine CT 10/18/2024: IMPRESSION: No acute CT abnormality of the cervical spine. Head CT 10/18/2024: IMPRESSION: No acute intracranial abnormality. Facial Bones CT 10/18/2024: IMPRESSION: Acute soft tissue hematoma overlying the frontal bone and periorbital regions without other acute CT facial bone abnormality. Elbow X-ray 10/18/2024: IMPRESSION: No acute fracture or dislocation of the right elbow. Toe X-ray 10/18/2024: IMPRESSION: Acute minimally displaced fractures of the 4th digit proximal phalangeal base, 4th metatarsal neck, and 3rd digit proximal phalangeal medial base. Chest CT 10/18/2024: IMPRESSION: No traumatic injury to the chest. No acute displaced rib fractures as clinically queried. Abdomen/Pelvis CT 10/18/2024: IMPRESSION: No intra-abdominal or intrapelvic traumatic abnormality is identified. Left hip soft tissue contusion is suspected. No displaced fracture or dislocation. Nonspecific lower lung groundglass opacities possibly infectious/inflammatory. Fluid and wall thickening of the distal esophagus, possibly reflux esophagitis, but nonspecific, consider endoscopy correlation if needed. Significant hepatic steatosis. Liquid distal colonic and rectal contents, correlate with diarrhea and any symptoms of colitis Limited noncontrast CT. Chest X-ray 10/20/2024: IMPRESSION: Peribronchial cuffing with increased interstitial markings, suggestive of moderate pulmonary edema. Other Results/Comments Other Results/Comments: I have reviewed the patient's labs. Her WBC is elevated and trending upward. Her neutrophil # is high and trending up, and lymphocyte # is low. Her RBC, Hgb, Hct, MCV, and MCH are low. This is a microcytic hypochromic anemia. Her RDW is high. Her VBG pH is high, indicating alkalosis. Sodium is low but trending up at 124 this morning. Her potassium is low at 3.1 and trending down. Ionized calcium, chloride, and phosphorus are low. Creatinine is low. Calcium is low and trending up. ABX Reporting Has patient been on IV antibiotics over the past 48 hours?: Yes Assessment/Plan Problem List (1) Alcohol withdrawal: Impression: - CIWA score 8 this morning and 9 this afternoon - Seizure precautions - Plan to continue IV lorazepam at a low dose as needed to decrease risk of seizure and delirium as well as manage symptoms - Plan to continue PO chlordiazepoxide 25mg every 6 hours to decrease risk of seizure and delirium as well as manage symptoms - Plan to continue PO thiamine 100 mg daily (2) Acute hyponatremia: Impression: - Likely beer potomania - Sodium is still low but trending up at 124 this morning - Plan to continue PO sodium chloride every 6 hours - Plan to continue free water restriction at 1500 ml/day - Discontinued IV sodium chloride to minimize risk of fluid overload - Goal correction no more than 8 within 24 hours - Will continue to trend sodium levels - Ordered urine studies to assess osmolality (3) Closed fracture of toe: Impression: - Patient is not complaining of significant pain while laying in bed - Plan to continue PO acetaminophen 1,000 mg every 8 hours for pain management - Applied a post-op shoe to left foot per PT recommendation for ambulation (4) Metabolic acidosis: Impression: - Resolved after aggressive IV fluids (5) COPD (chronic obstructive pulmonary disease): Impression: - Diffuse crackles heard on exam today and patient reports an intermittent productive cough - O2 is within normal limits on 2L of O2 via nasal cannula today - 10/18/[address] indicated emphysema on the findings - 10/20/2024 Chest X-Ray noted peribronchial cuffing with increased interstitial markings, suggestive of moderate pulmonary edema - Plan to continue inhaled budesonide 0.5 mg twice daily - Plan to continue inhaled formoterol fumarate 20mcg twice daily - Patient given IV dexamethasone yesterday and switched to PO prednisone 40 mg daily today for a 5 day steroid burst (day 2/5) Qualifiers: COPD type: unspecified COPD Qualified Code(s): J44.9 - Chronic obstructive pulmonary disease, unspecified (6) Depression: Impression: - Plan to continue home medications duloxetine and quetiapine (7) DM type 2 (diabetes mellitus, type 2): Impression: - POC glucose was 178 this morning and 151 this afternoon - Hemoglobin A1c came back normal at 5.6 - Patient is on prednisone daily which could contribute to increasing blood glucose levels - Hypoglycemia protocol in place - Discontinued orders for POC whole blood glucose Qualifiers: Diabetes mellitus complication status: without complication Diabetes mellitus terminal manager insulin use: without senior care use Qualified Code(s): E11.9 - Type 2 diabetes mellitus without complications (8) UTI (urinary tract infection): Impression: - 10/18/2024 urinalysis showed many squamous cells and many bacteria with no leukocyte esterase - I cannot rule-out a UTI at this time as patient has increased WBC which could indicate an infectious process and we are still awaiting urine culture results - Plan to treat empirically with IV ceftriaxone 1gm every 24 hours (9) Hypokalemia: Impression: - Potassium low today at 3.2 and 3.1 - ICU electrolyte protocol in place - Patient given IV potassium phosphate 15mmol today - Will continue to trend
[2024-10-20] MEDS: POTASSIUM CHLORIDE 20 MEQ TABLET PO ONE ×2 (10:49→20:24)
[2024-10-20] MEDS ORDERED: SODIUM CHLORIDE 0.9% 250 ML IV ONE (11:00)
[2024-10-20] MEDS: MAGNESIUM SULFATE 2 GRAM 2 GM/50 ML BAG IV ONE (11:02)
[2024-10-20] MEDS: POTASSIUM PHOSPHATE 15 MMOL in SODIUM CHLORIDE 0.9% 250 ML IV ONE (11:23)
[2024-10-20] MEDS: LIDOCAINE OINTMENT 5% 35.44 GM TUBE TOP SCH (12:37)
--- NOTE | 2024-10-20 12:56 | XRAY Report ---
PROCEDURE: XR Chest 1V INDICATIONS: Dyspnea, crackles TECHNIQUE: One view of the chest was acquired. COMPARISON: 10/18/2024 FINDINGS: Surgical changes and devices: None. Lungs and pleura: Peribronchial cuffing with increased interstitial markings. No effusions or pneumo thorax. Mediastinum: Mediastinal contours appear normal. Heart size is mildly enlarged. Bones and chest wall: No suspicious bony lesions. Overlying soft tissues appear unremarkable. IMPRESSION: Peribronchial cuffing with increased interstitial markings, suggestive of moderate pulmonary edema. Reviewed by: Huang Hagen MD on 10/20/2024 12:54 PM PST Approved by: Huang Hagen MD on 10/20/2024 12:54 PM PST Station ID: [id number]
[2024-10-20] MEDS: FUROSEMIDE 20 MG/2 ML VIAL IVP STA (14:50)
--- NOTE | 2024-10-20 15:15 | OT Plan of Care ---
OT Inpatient POC Diagnosis DIAGNOSIS Diagnosis: Alcohol withdrawal Diagnosis: etoh Chief Complaint: falls; AMS Onset of Chief Complaint: [employer]ING [employer]OR MEDICAL/SURGICAL HISTORY Medical History History of COPD History of diabetes mellitus Surgical History H/O cervical spine surgery S/P hardware removal Status post open reduction and internal fixation (ORIF) of fracture Assessment and Goals ASSESSMENT Assessment: 64-year-old female with history of alcohol dependence presents emergency department via EMS after being found down for unknown period of time. In the ER, CT head, facial bones, C-spine was without acute fracture but did show Soft tissue hematomas overlying frontal bone, periorbital region. CT chest without traumatic injury. CT abdomen/pelvis with some nonspecific lower lung groundglass opacities, wall thickening of the distal esophagus likely reflux esophagitis, hepatic steatosis. Elbow x-ray was normal, but her x-ray of her left toes showed a acute minimally displaced fracture of the fourth digit phalangeal base, fourth metatarsal neck, third digital proximal phalangeal medial base. She had a leukocytosis of 20 in the setting of acute alcohol wi thdrawal. Her sodium is 121, CO2 20, anion gap 19. Her AST is 125, up from 101 earlier this month. Her lipase is 101. Her ethyl alcohol level was 100.1. Adm for acute alcohol withdrawal; ICU level of care. MD reporting surgical boot for L LE. Met supine in bed, 3L NC o2 VSS. Pt denied acute sequela unrated generalized pain all over RN aware. A&Ox4, follows 100% commands. Performed supine to sit EOB MAX AX2 EOB sitting CG during simple grooming/bathing with MIN-MOD A and full set up. Dangle EOB only at this time 2/2 fatigue and pain. Overall presents with decreased strength, endurance, activity tolerance, and ADL status. Will benefit from cont OT services during acute stay. Rec d/c to SNF. -Activities of Daily Living Improve Upper Extremity Dressing to:: Modified Independent Improve Lower Extremity Dressing to:: Modified Independent Improve Grooming/Hygiene to:: Modified Independent Improve Bathing to:: Modified Independent Improve Toileting to:: Modified Independent OT Inpatient Plan PLAN Treatment Frequency: 1x/day Duration: Until discharge -Discharge Recommendations Discharge Location: Long-Term Facility Support/Services Needed: With assist Recommended Equipment: Grab bars, Shower/bath chair, Adaptive Self Care Devices and Other Transport Needs at Discharge: [place]
[2024-10-20] MEDS: [UNRECOGNIZED DRUG - OTHER] INH SCH (15:38)
[2024-10-20] MEDS: BUDESONIDE FORMOTEROL INH SCH (15:38)
[2024-10-20] MEDS: cefTRIAXone 1 GM VIAL IVP SCH (15:39)
--- NOTE | 2024-10-20 15:43 | PT Plan of Care ---
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 In the ER, CT head, facial bones, C-spine was without acute fracture but did show soft tissue hematomas overlying frontal bone, periorbital region. CT chest without traumatic injury. CT abdomen/pelvis with some nonspecific lower lung ground glass opacities, wall thickening of the distal esophagus likely reflux esophagitis, hepatic steatosis. Elbow x-ray was normal, but xray of her L toes showed acute minimally displaced fracture of the fourth digit phalangeal base, fourth metatarsal neck, third digital proximal phalangeal medial base. Pt lives in mobile home with roommate and was found down by roommate. Pt is A&Ox3-4 with moderate distractibility, benefits from redirection to attend to tasks. On 4L O2 with sats 93% at rest and with activity. Pt performs supine to sit EOB mod to maxAX2. Maintained EOB sitting w/ CGA to minAx1 during simple grooming/bathing and full set up. Dangle EOB only at this time 2/2 fatigue, pain, and WBAT with boot per hospitalist (boot not yet in room during PT eval). Overall presents with decreased strength, endurance, activity tolerance, and ADL status. Pt may benefit from skilled PT services in acute setting to improve safety and reduce fall risk. When medically clear, PT rec dc to SNF/LTC as she does not appear to be safe living indep at this time. PATIENT/FAMILY GOALS Patient/Family Goals: none sated GOALS Improve supine to sit to:: Modified Independent Improve sit to stand to:: Minimal Assist Improve pivot transfer ability to:: Contact Guard Improve sit to supine to:: Minimal Assist Improve gait ability to:: Min A Advance Assistive Device to:: Front Wheeled Walker Increase distance walked to (in feet):: 50 Improve Sitting Balance to:: Good PLAN Frequency: 1-2x/day Duration: Until goals are met DISCHARGE RECOMMENDATIONS Discharge Location: SNF vs LTC Support/Services Needed: With assist DC Equipment Recommended: Front wheeled walker and Wheelchair Other Discharge Equipment: tbd pending WB status update Transport Needs at Discharge: [facility] Other: BLS d/t acute fractures
[2024-10-20 18:11] LABS: MAGNESIUM 1.8 mg/dL (1.7-2.3); POTASSIUM 3.3 mmol/L (3.5-4.5)
[2024-10-20 18:17] LABS: PHOSPHORUS 2.7 mg/dL (2.5-5.0)
[2024-10-20] MEDS: LORazepam 1 MG TABLET PO PRN (20:23)
[2024-10-20] MEDS: SODIUM CHLORIDE 1 GM TABLET PO SCH (23:42)
[2024-10-21 05:12] LABS: BASOPHILS % (AUTO) 0.2 %; EOSINOPHILS # (AUTO) 0.1 10^3/uL (0.0-0.7); EOSINOPHILS % (AUTO) 0.5 %; HCT - HEMATOCRIT 27.5 % (37.0-47.0); HGB - HEMOGLOBIN 8.5 g/dL (12.0-16.0); LYMPHOCYTES # (AUTO) 1.7 10^3/uL (1.5-3.5); LYMPHOCYTES % (AUTO) 18.2 %; MEAN CORPUSCULAR HEMOGLOBIN 24.8 pg (27.0-31.0); MEAN CORPUSCULAR HGB CONC 30.9 g/dL (32.0-36.0); MEAN CORPUSCULAR VOLUME 80.2 fL (81.0-99.0); MEAN PLATELET VOLUME 10.1 fL (7.9-10.8); MONOCYTES # (AUTO) 0.4 10^3/uL (0.0-1.0); MONOCYTES % (AUTO) 4.4 %; NEUTROPHILS # (AUTO) 7.2 10^3/uL (1.5-6.6); NEUTROPHILS % (AUTO) 75.9 %; PLT - PLATELET COUNT 198 10^3/uL (130-450); RED BLOOD COUNT 3.43 10^6/uL (4.20-5.40); WHITE BLOOD COUNT 9.5 x10^3/uL (4.8-10.8)
[2024-10-21 05:30] LABS: CALCIUM 7.8 mg/dL (8.5-10.3); CREATININE 0.3 mg/dL (0.6-1.3); MAGNESIUM 1.9 mg/dL (1.7-2.3); PHOSPHORUS 2.5 mg/dL (2.5-5.0); POTASSIUM 3.5 mmol/L (3.5-4.5)
[2024-10-21 05:41] LABS: VBG PH 7.428 (7.31-7.41)
[2024-10-21 05:42] LABS: CALCIUM, IONIZED 1.09 mmol/L (1.15-1.33)
--- NOTE | 2024-10-21 09:04 | PROVIDER PROGRESS NOTE ---
<Statement entered by Momo Carmona DNP - 10/21/24 14:41> Patient was seen and examined by me with a separate encounter after being seen by SAUL student. I reviewed the student's documentation including patient history, physical examination, laboratory, imaging, clinical assessment and treatment plan. I have discussed the management of the patient with the student, and with the patient. There are no changes. Still withdrawing off of alcohol. Electrolyte abnormalities are improving. Out of ICU, DC Santoyo. Awaiting results of echo Subjective Prog Note Date Prog Note Date: 10/21/24 Prog Note Time: 13:07 Subjective Pt reports feeling: No change Subjective: Marcia is a little apprehensive this morning. We discussed eventual removal of her santoyo catheter and she states that she is "scared" to experience incontinence. She reports for the last 5-6 months she has been experiencing urge incontinence. She continues to report pain in her frontal and periorbital region. Additionally, she reports her bottom is very sore this morning. She states she has been experiencing intermittent nausea but her appetite is okay. Her productive cough persists and woke her up a few times last night. Current Medications Current Medications Current Medications: Current Medications Generic Name Dose Route Start Last Admin Trade Name Freq PRN Reason Stop Dose Admin Acetaminophen 1,000 mg 10/18/24 21:59 10/21/24 06:18 Acetaminophen 500 Mg Tablet PO 1,000 mg Q8H CALIXTO Administration Albuterol 2.5 mg 10/18/24 22:15 Albuterol Neb 2.5 Mg/3 Ml INH RTQID PRN Wheezing Amlodipine Besylate 5 mg 10/19/24 09:00 10/21/24 08:37 Amlodipine 5 Mg Tablet PO 5 mg DAILY CALIXTO Administration Atorvastatin Calcium 10 mg 10/19/24 21:00 10/20/24 20:25 Atorvastatin 10 Mg Tablet PO 10 mg QPM CALIXTO Administration Budesonide 0.5 mg 10/19/24 07:00 10/20/24 21:00 Budesonide 0.5 Mg/2 Ml Neb INH Not Given RTBID CALIXTO Carboxymethylcellulose 1 drops 10/18/24 21:59 10/19/24 06:14 Carboxymethylcellulose Ophth Drops EACHEYE 1 drops Q4HR PRN Administration Dry Eye Chlordiazepoxide HCl 25 mg 10/18/24 21:00 10/21/24 06:19 Chlordiazepoxide 25 Mg Capsule PO 25 mg Q6HR CALIXTO Administration Duloxetine HCl 60 mg 10/19/24 12:00 10/21/24 08:37 Duloxetine 60 Mg Capsule PO 60 mg DAILY CALIXTO Administration Enoxaparin Sodium 40 mg 10/20/24 09:00 10/21/24 08:37 Enoxaparin 40 Mg/0.4 Ml Syringe SUBQ 40 mg DAILY CALIXTO Administration Formoterol Fumarate 20 mcg 10/19/24 07:00 10/20/24 21:00 Formoterol Fumarate Neb 20 Mcg/2 Ml INH Not Given RTBID CALIXTO Gabapentin 1,200 mg 10/19/24 14:00 10/21/24 06:18 Gabapentin 400 Mg Capsule PO 1,200 mg TID CALIXTO Administration Ceftriaxone Sodium 1 gm/ 100 mls @ 200 mls/hr 10/18/24 23:00 10/21/24 03:13 Sodium Chloride IV Infused Q24H CALIXTO Infusion Lidocaine 1 applic 10/20/24 13:00 10/21/24 08:38 Lidocaine Ointment 5% 35.44 Gm Tube TOP 1 applic QID CALIXTO Administration Lorazepam 2 mg 10/20/24 15:20 10/21/24 08:37 Lorazepam 1 Mg Tablet PO 2 mg Q1H PRN Administration CIWA > 8 Protocol Nicotine 1 patch 10/19/24 21:07 10/21/24 08:37 Nicotine 21 Mg Patch TOP 1 patch DAILY CALIXTO Administration Ondansetron HCl 4 mg 10/18/24 21:59 Ondansetron 4 Mg/2 Ml Vial IVP Q6HR PRN Nausea / Vomiting Oxycodone HCl 5 mg 10/18/24 21:59 10/21/24 03:16 Oxycodone 5 Mg Tablet PO 5 mg Q4HR PRN Administration Pain 5 to 7 Pantoprazole Sodium 40 mg 10/19/24 07:00 10/21/24 06:18 Pantoprazole 40 Mg Tablet PO 40 mg QDAC CALIXTO Administration Polyethylene Glycol 17 gm 10/20/24 09:00 10/21/24 08:38 Polyethylene Glycol 3350 17 Gm Packet PO Not Given DAILY CALIXTO Prednisone 40 mg 10/20/24 08:00 10/21/24 08:37 Prednisone 20 Mg Tablet PO 10/23/24 08:01 40 mg DAILYWM CALIXTO Administration Multivit/Folic Acid/Iron 1 tab 10/19/24 09:00 10/21/24 08:37 Vitamin Tablet PO 1 tab DAILY CALIXTO Administration Prochlorperazine Edisylate 10 mg 10/18/24 21:59 Prochlorperazine 10 Mg/2 Ml Vial IVP Q6HR PRN Nausea / Vomiting Quetiapine Fumarate 50 mg 10/18/24 21:59 10/20/24 20:25 Quetiapine 25 Mg Tablet PO 50 mg QPM CALIXTO Administration Sodium Chloride 10 ml 10/19/24 01:00 10/21/24 08:38 Sodium Chloride Flush 0.9% 10 Ml Syringe IVP 10 ml 0100,0900,1700 CALIXTO Administration Sodium Chloride 10 ml 10/18/24 21:59 10/20/24 06:22 Sodium Chloride Flush 0.9% 10 Ml Syringe IVP 10 ml PRN PRN Administration NEEDED PER PROVIDER ORDERS Sodium Chloride 2 gm 10/20/24 22:00 10/21/24 06:19 Sodium Chloride 1 Gm Tablet PO 2 gm TID CALIXTO Administration Thiamine HCl 100 mg 10/19/24 09:00 10/21/24 08:37 Thiamine 100 Mg Tablet PO 100 mg DAILY CALIXTO Administration Objective Vital Signs/Intake & Output Reviewed Vital Signs: Yes Vital Signs: Vital Signs x48h Temp Pulse Resp BP Pulse Ox O2 Flow Rate 10/21/24 08:40 37.1 C 79 19 121/63 92 2 10/21/24 06:00 84 17 117/58 L 92 4 Intake & Output: Intake & Output 10/18/24 10/19/24 10/20/24 10/21/24 23:59 23:59 23:59 23:59 Intake Total 1154 / 1154 3912 / 3912 2730 / 2730 100 / 100 Output Total 425 / 425 2255 / 2255 1795 / 1795 1050 / 1050 Balance 729 / 729 1657 / 1657 935 / 935 -950 / -950 Weight (kg) 68.5 kg 68.5 kg 72.5 kg 72 kg Objective General Appearance: positive Alert and Mild distress (laying in bed frowning and sighing ) Eyes Bilateral: positive PERRL, EOMI, Conjunctivae nml, No scleral icterus and Other (significant bilateral periorbital ecchymosis, resolving) ENT: positive No signs of dehydration; negative Purulent nasal drainage Neck: positive Thyroid nml, No JVD and Trachea midline; negative Lymphadenopathy (R) or Lymphadenopathy (L) Respiratory: positive No respiratory distress, Rales (anterior and posterior, intermittent, across all bowen) and Rhonchi (posterior, across all bowen ); negative Breath sounds nml Cardiovascular: positive Regular rate & rhythm Abdomen: positive Non-tender and No distention Skin: positive Warm, Dry, Skin rash (intertrigo left pannus) and Other (erythematous, blanching, raw areas of skin along right gluteal fold and groin with serosanguinous discharge); negative Color nml (various areas of ecchymosis (bilateral periorbital, bilateral hands, forehead, right elbow, righ hip and thigh, left foot)), Cyanosis or Diaphoresis Extremities: positive No pedal edema; negative Nml appearance (resolving bruising along left foot that is fractured, resolving bilateral bruising on dorsal aspect of hands), Calf tenderness or Primo's sign/cords Neurologic/Psychiatric: positive Oriented x3, CN's nml (2-12) (grossly intact) and Depressed mood/affect (euthymic ); negative Motor nml (activity tremor in bilateral hands), Facial droop or Slurred/abnml speech Lab Results 10/21/24 04:30 10/21/24 09:40 Other Labs: Lab Results x24hrs 10/21/24 10/21/24 10/21/24 Range/Units 07:58 04:30 04:30 WBC 9.5 (4.8-10.8) x10^3/uL RBC 3.43 L (4.20-5.40) 10^6/uL Hgb 8.5 L (12.0-16.0) g/dL Hct 27.5 L (37.0-47.0) % MCV 80.2 L (81.0-99.0) fL MCH 24.8 L (27.0-31.0) pg MCHC 30.9 L (32.0-36.0) g/dL RDW 18.0 H (12.0-15.0) % Plt Count 198 (130-450) 10^3/uL MPV 10.1 (7.9-10.8) fL Neut # (Auto) 7.2 H (1.5-6.6) 10^3/uL Lymph # (Auto) 1.7 (1.5-3.5) 10^3/uL Anderson # (Auto) 0.4 (0.0-1.0) 10^3/uL Eos # (Auto) 0.1 (0.0-0.7) 10^3/uL Baso # (Auto) 0.0 (0.0-0.1) 10^3/uL Absolute Nucleated RBC 0.00 x10^3/uL Nucleated RBC % 0.0 /100WBC VBG pH 7.428 H (7.31-7.41) Ionized Calcium 1.09 L (1.15-1.33) mmol/L Sodium 131 L 131 L (135-145) mmol/L Potassium 3.5 (3.5-4.5) mmol/L Chloride 96 L (101-111) mmol/L Carbon Dioxide 30 (21-32) mmol/L Anion Gap 5.0 L (6-13) BUN 5 L (6-20) mg/dL Creatinine 0.3 L (0.6-1.3) mg/dL Estimated GFR (MDRD) 225 (>89) Glucose 101 (74-104) mg/dL POC Whole Bld Glucose 94 (70-100) mg/dL Calcium 7.8 L (8.5-10.3) mg/dL Phosphorus 2.5 (2.5-5.0) mg/dL Magnesium 1.9 (1.7-2.3) mg/dL 10/20/24 10/20/24 10/20/24 Range/Units 21:47 20:18 17:56 WBC (4.8-10.8) x10^3/uL RBC (4.20-5.40) 10^6/uL Hgb (12.0-16.0) g/dL Hct (37.0-47.0) % MCV (81.0-99.0) fL MCH (27.0-31.0) pg MCHC (32.0-36.0) g/dL RDW (12.0-15.0) % Plt Count (130-450) 10^3/uL MPV (7.9-10.8) fL Neut # (Auto) (1.5-6.6) 10^3/uL Lymph # (Auto) (1.5-3.5) 10^3/uL Anderson # (Auto) (0.0-1.0) 10^3/uL Eos # (Auto) (0.0-0.7) 10^3/uL Baso # (Auto) (0.0-0.1) 10^3/uL Absolute Nucleated RBC x10^3/uL Nucleated RBC % /100WBC VBG pH (7.31-7.41) Ionized Calcium (1.15-1.33) mmol/L Sodium 127 L 127 L (135-145) mmol/L Potassium 3.3 L (3.5-4.5) mmol/L Chloride (101-111) mmol/L Carbon Dioxide (21-32) mmol/L Anion Gap (6-13) BUN (6-20) mg/dL Creatinine (0.6-1.3) mg/dL Estimated GFR (MDRD) (>89) Glucose (74-104) mg/dL POC Whole Bld Glucose 203 (70-100) mg/dL Calcium (8.5-10.3) mg/dL Phosphorus 2.7 (2.5-5.0) mg/dL Magnesium 1.8 (1.7-2.3) mg/dL 10/20/24 10/20/24 10/20/24 Range/Units 17:03 14:14 11:36 WBC (4.8-10.8) x10^3/uL RBC (4.20-5.40) 10^6/uL Hgb (12.0-16.0) g/dL Hct (37.0-47.0) % MCV (81.0-99.0) fL MCH (27.0-31.0) pg MCHC (32.0-36.0) g/dL RDW (12.0-15.0) % Plt Count (130-450) 10^3/uL MPV (7.9-10.8) fL Neut # (Auto) (1.5-6.6) 10^3/uL Lymph # (Auto) (1.5-3.5) 10^3/uL Anderson # (Auto) (0.0-1.0) 10^3/uL Eos # (Auto) (0.0-0.7) 10^3/uL Baso # (Auto) (0.0-0.1) 10^3/uL Absolute Nucleated RBC x10^3/uL Nucleated RBC % /100WBC VBG pH (7.31-7.41) Ionized Calcium (1.15-1.33) mmol/L Sodium 125 L (135-145) mmol/L Potassium (3.5-4.5) mmol/L Chloride (101-111) mmol/L Carbon Dioxide (21-32) mmol/L Anion Gap (6-13) BUN (6-20) mg/dL Creatinine (0.6-1.3) mg/dL Estimated GFR (MDRD) (>89) Glucose (74-104) mg/dL POC Whole Bld Glucose 205 151 (70-100) mg/dL Calcium (8.5-10.3) mg/dL Phosphorus (2.5-5.0) mg/dL Magnesium (1.7-2.3) mg/dL 10/20/24 Range/Units 09:22 WBC (4.8-10.8) x10^3/uL RBC (4.20-5.40) 10^6/uL Hgb (12.0-16.0) g/dL Hct (37.0-47.0) % MCV (81.0-99.0) fL MCH (27.0-31.0) pg MCHC (32.0-36.0) g/dL RDW (12.0-15.0) % Plt Count (130-450) 10^3/uL MPV (7.9-10.8) fL Neut # (Auto) (1.5-6.6) 10^3/uL Lymph # (Auto) (1.5-3.5) 10^3/uL Anderson # (Auto) (0.0-1.0) 10^3/uL Eos # (Auto) (0.0-0.7) 10^3/uL Baso # (Auto) (0.0-0.1) 10^3/uL Absolute Nucleated RBC x10^3/uL Nucleated RBC % /100WBC VBG pH (7.31-7.41) Ionized Calcium (1.15-1.33) mmol/L Sodium 124 L (135-145) mmol/L Potassium 3.1 L (3.5-4.5) mmol/L Chloride (101-111) mmol/L Carbon Dioxide (21-32) mmol/L Anion Gap (6-13) BUN (6-20) mg/dL Creatinine (0.6-1.3) mg/dL Estimated GFR (MDRD) (>89) Glucose (74-104) mg/dL POC Whole Bld Glucose (70-100) mg/dL Calcium 8.2 L (8.5-10.3) mg/dL Phosphorus 2.3 L (2.5-5.0) mg/dL Magnesium 1.7 (1.7-2.3) mg/dL Diagnostic Imaging Diagnostic Imaging Results: positive Final report reviewed Diagnostic Imaging Comments: Cervical Spine CT 10/18/2024: IMPRESSION: No acute CT abnormality of the cervical spine. Head CT 10/18/2024: IMPRESSION: No acute intracranial abnormality. Facial Bones CT 10/18/2024: IMPRESSION: Acute soft tissue hematoma overlying the frontal bone and periorbital regions without other acute CT facial bone abnormality. Elbow X-ray 10/18/2024: IMPRESSION: No acute fracture or dislocation of the right elbow. Toe X-ray 10/18/2024: IMPRESSION: Acute minimally displaced fractures of the 4th digit proximal phalangeal base, 4th metatarsal neck, and 3rd digit proximal phalangeal medial base. Chest CT 10/18/2024: IMPRESSION: No traumatic injury to the chest. No acute displaced rib fractures as clinically queried. Abdomen/Pelvis CT 10/18/2024: IMPRESSION: No intra-abdominal or intrapelvic traumatic abnormality is identified. Left hip soft tissue contusion is suspected. No displaced fracture or dislocation. Nonspecific lower lung groundglass opacities possibly infectious/inflammatory. Fluid and wall thickening of the distal esophagus, possibly reflux esophagitis, but nonspecific, consider endoscopy correlation if needed. Significant hepatic steatosis. Liquid distal colonic and rectal contents, correlate with diarrhea and any symptoms of colitis Limited noncontrast CT. Chest X-ray 10/20/2024: IMPRESSION: Peribronchial cuffing with increased interstitial markings, suggestive of moderate pulmonary edema. Other Results/Comments Other Results/Comments: I have reviewed the patient's labs. Her WBC is now within normal limits. Her neutrophil # is high but trending down. Lymphocyte # is now within normal limits. Her RBC, Hgb, Hct, and MCV remain low but are trending up. Her MCH and MCHC remain low and are trending down. Her RDW is high and trending up. Her VBG pH is high but trending down. Ionized calcium is still low. Sodium is low but improving. Potassium is now within normal limits. Her chloride is low but trending up. Anion gap is low. BUN and creatinine are low. Calcium is low and trending down. Phosphorous is now normal. ABX Reporting Has patient been on IV antibiotics over the past 48 hours?: Yes Sepsis Event Note (H) Sepsis Criteria Sepsis Criteria: Recorded Heart Rate greater than 90 bpm and WBC count greater than 12,000 or less than 4000 Assessment/Plan Problem List (1) Alcohol withdrawal: Impression: - CIWA score 14 this morning and 7 this afternoon indicating the patient is still experiencing active alcohol withdrawal - Discontinued her santoyo catheter as she is alert and oriented - Plan to continue PO lorazepam 2mg every hour as needed - Plan to continue PO chlordiazepoxide 25mg every 6 hours - Plan to continue PO thiamine 100 mg daily Qualifiers: Complication of substance-induced condition: uncomplicated Qualified Code(s): F10.930 - Alcohol use, unspecified with withdrawal, uncomplicated (2) Acute hyponatremia: Impression: - Likely beer potomania - Awaiting results of urine studies to assess osmolality - Sodium is still low but trending up at 132 this morning, which is an 8 mmol/L increase in the last 24 hours - Reduced PO sodium chloride to twice daily dosing to minimize the risk of osmotic demyelination syndrome - Plan to continue free water restriction at 1500 ml/day - Will continue to trend sodium levels (3) Closed fracture of toe: Impression: - Patient is not complaining of significant pain while laying in bed - Plan to continue PO acetaminophen 1,000 mg every 8 hours for pain management - Patient has a post-op shoe available for her left foot per PT recommendation for ambulation - Patient has not yet ambulated or been weight-bearing, PT will reassess tomorrow Qualifiers: Encounter type: subsequent encounter (4) COPD (chronic obstructive pulmonary disease): Impression: - Diffuse crackles and some rhonchi heard on exam today and patient reports an intermittent productive cough - O2 is within normal limits on 2L of O2 via nasal cannula today - 10/18/[address] indicated emphysema on the findings - 10/20/2024 Chest X-Ray noted peribronchial cuffing with increased interstitial markings, suggestive of moderate pulmonary edema - Awaiting results of echocardiogram to determine if there is congestive heart failure contributing pulmonary edema - Ordered respiratory therapy to get patient set up with incentive spirometry - Plan to get patient up in the chair today - Plan to continue inhaled budesonide 0.5 mg twice daily - Plan to continue inhaled formoterol fumarate 20mcg twice daily - Plan to continue PO prednisone 40 mg daily today for a 5 day steroid burst (day 3/5) Qualifiers: COPD type: unspecified COPD Qualified Code(s): J44.9 - Chronic obstructive pulmonary disease, unspecified (5) Depression: Impression: - Plan to continue home medications duloxetine and quetiapine Qualifiers: Depression Type: unspecified Qualified Code(s): F32.A - Depression, unspecified (6) DM type 2 (diabetes mellitus, type 2): Impression: - Recent hemoglobin A1c came back normal at 5.6 - Hypoglycemia protocol in place Qualifiers: Diabetes mellitus complication status: without complication Diabetes mellitus longterm insulin use: without terminologist use Qualified Code(s): E11.9 - Type 2 diabetes mellitus without complications (7) UTI (urinary tract infection): Impression: - 10/18/2024 urinalysis showed many squamous cells and many bacteria with no leukocyte esterase - This was likely a dirty catch and urine did not reflex to culture - Patient WBC is within normal limits today and she remains afebrile - Discontinued santoyo catheter - Discontinued IV ceftriaxone 1gm every 24 hours in line with appropriate antibiotic stewardship Qualifiers: Hematuria presence: with hematuria Urinary tract infection type: site unspecified Qualified Code(s): N39.0 - Urinary tract infection, site not specified; R31.9 - Hematuria, unspecified (8) Hypokalemia: Impression: - Resolved after IV potassium phosphate yesterday - Potassium within normal limits at 3.5 mmol/L today - Will continue to trend (9) Metabolic acidosis: Impression: - Resolved after aggressive IV fluids (10) Skin breakdown: Impression: - Patient has significant skin erythema and shearing along her right gluteal fold and right groin - Several areas are open and weeping serosanguinous discharge - Recommended nursing staff use topic zinc cream in addition to barrier cream and replace her brief with chucks - Ordered high protein intake to promote optimal nutrition and wound healing (11) Intertrigo: Impression: - Mild left pannus intertrigo - Nystatin powder ordered to cover for mckenzie intertrigo
[2024-10-21] MEDS: FUROSEMIDE 20 MG/2 ML VIAL IVP SCH (16:11)
[2024-10-21] MEDS: COD LIVER OIL/ZINC OXIDE 113 GM TUBE TOP PRN (18:03)
[2024-10-21] MEDS: SODIUM CHLORIDE 1 GM TABLET PO SCH (20:14)
[2024-10-21] MEDS: NYSTATIN POWDER 15 GM TOP SCH (20:14)
[2024-10-22 04:28] LABS: BASOPHILS % (AUTO) 0.4 %; EOSINOPHILS # (AUTO) 0.1 10^3/uL (0.0-0.7); EOSINOPHILS % (AUTO) 0.9 %; HCT - HEMATOCRIT 28.8 % (37.0-47.0); HGB - HEMOGLOBIN 8.9 g/dL (12.0-16.0); LYMPHOCYTES % (AUTO) 25.1 %; MEAN CORPUSCULAR HEMOGLOBIN 25.4 pg (27.0-31.0); MEAN CORPUSCULAR HGB CONC 30.9 g/dL (32.0-36.0); MEAN CORPUSCULAR VOLUME 82.3 fL (81.0-99.0); MEAN PLATELET VOLUME 9.7 fL (7.9-10.8); MONOCYTES # (AUTO) 0.6 10^3/uL (0.0-1.0); MONOCYTES % (AUTO) 7.1 %; NEUTROPHILS # (AUTO) 5.2 10^3/uL (1.5-6.6); NEUTROPHILS % (AUTO) 65.5 %; PLT - PLATELET COUNT 225 10^3/uL (130-450); RED CELL DISTRIBUTION WIDTH 18.7 % (12.0-15.0)
[2024-10-22 04:46] LABS: CALCIUM 8.4 mg/dL (8.5-10.3); CREATININE 0.3 mg/dL (0.6-1.3); MAGNESIUM 1.8 mg/dL (1.7-2.3); POTASSIUM 3.2 mmol/L (3.5-4.5)
--- NOTE | 2024-10-22 09:02 | PROVIDER PROGRESS NOTE ---
<Statement entered by Momo Carmona DNP - 10/22/24 16:59> Patient was seen and examined by me with a separate encounter after being seen by [facility] student. I reviewed the student's documentation including patient history, physical examination, laboratory, imaging, clinical assessment and treatment plan. I have discussed the management of the patient with the student, and with the patient. There are no changes. Overall improving, benzo needs going down. De-escalate to 5 mg every 6 hours Librium. Anticipate being medically clear tomorrow Documented by User: Pallavi Rach 10/22/24 13:35 Subjective Prog Note Date Prog Note Date: 10/22/24 Prog Note Time: 13:19 Subjective Pt reports feeling: Improved Subjective: Marcia is tearful this morning. She reports she feels overall a little better than yesterday. However, she is experiencing significant pain in her right gluteal region at a 9/10. She also reports 7/10 pain around her resolving areas of ecchymosis around her periorbital region, forehead, and right arm. She has been transferring to the chair with a walker since yesterday and does not report any significant pain in her broken left foot with weight-bearing. She reports she is still having a phlegm producing cough that wakes her up at night. She denies any shortness of breath or chest pain/squeezing/palpitations. When discussing her oxygen needs, she reports she has an O2 concentrator at home that she uses as-needed. She typically only uses it once a week at 2L. The patient reports she thinks she is tearful this morning because some of her depression is breaking through and being hospitalized is overwhelming. She states she has a history of bipolar disorder and that she has been told she is "psychotic". She reports her psychosis was primarily paranoia that the FBI was following her. She denies any paranoia at present. She denies any current active suicidal ideation but admits to at least 10 prior suicide attempts. She denies any access to dangerous prescription medications or firearms at home but reports her previous attempts have mostly been through cutting (tried to cut her left wrist with a butter knife and tried to cut her neck with a razor). She reports that she gives her roommate her razors so she does not have access to them at home. Marcia states that this morning she has been debating drinking or not drinking alcohol when she is discharged from the hospital. She denies interest in rehab or AA because she has "tried and tried and tried". The only thing she has found helpful in the past is art therapy. She is considering agreeing to go to a SNF. She would like to discuss again tomorrow morning. Current Medications Current Medications Current Medications: Current Medications Generic Name Dose Route Start Last Admin Trade Name Freq PRN Reason Stop Dose Admin Acetaminophen 1,000 mg 10/18/24 21:59 10/22/24 06:50 Acetaminophen 500 Mg Tablet PO 1,000 mg Q8H CALIXTO Administration Albuterol 2.5 mg 10/18/24 22:15 Albuterol Neb 2.5 Mg/3 Ml INH RTQID PRN Wheezing Amlodipine Besylate 5 mg 10/19/24 09:00 10/22/24 08:27 Amlodipine 5 Mg Tablet PO 5 mg DAILY CALIXTO Administration Atorvastatin Calcium 10 mg 10/19/24 21:00 10/21/24 20:12 Atorvastatin 10 Mg Tablet PO 10 mg QPM CALIXTO Administration Budesonide 0.5 mg 10/19/24 07:00 10/22/24 07:08 Budesonide 0.5 Mg/2 Ml Neb INH 0.5 mg RTBID CALIXTO Administration Carboxymethylcellulose 1 drops 10/18/24 21:59 10/19/24 06:14 Carboxymethylcellulose Ophth Drops EACHEYE 1 drops Q4HR PRN Administration Dry Eye Chlordiazepoxide HCl 25 mg 10/18/24 21:00 10/22/24 06:50 Chlordiazepoxide 25 Mg Capsule PO 25 mg Q6HR CALIXTO Administration Duloxetine HCl 60 mg 10/19/24 12:00 10/21/24 08:37 Duloxetine 60 Mg Capsule PO 60 mg DAILY CALIXTO Administration Enoxaparin Sodium 40 mg 10/20/24 09:00 10/22/24 08:26 Enoxaparin 40 Mg/0.4 Ml Syringe SUBQ 40 mg DAILY CALIXTO Administration Formoterol Fumarate 20 mcg 10/19/24 07:00 10/22/24 07:08 Formoterol Fumarate Neb 20 Mcg/2 Ml INH 20 mcg RTBID CALIXTO Administration Furosemide 20 mg 10/21/24 15:35 10/22/24 08:27 Furosemide 20 Mg/2 Ml Vial IVP 20 mg DAILY CALIXTO Administration Gabapentin 1,200 mg 10/19/24 14:00 10/22/24 06:50 Gabapentin 400 Mg Capsule PO 1,200 mg TID CALIXTO Administration Lidocaine 1 applic 10/20/24 13:00 10/22/24 08:28 Lidocaine Ointment 5% 35.44 Gm Tube TOP 1 applic QID CALIXTO Administration Lorazepam 2 mg 10/20/24 15:20 10/21/24 08:37 Lorazepam 1 Mg Tablet PO 2 mg Q1H PRN Administration CIWA > 8 Protocol Multi-Ingredient Ointment 1 applic 10/21/24 14:17 Zinc Oxide 20% Oint 30 Gm Tube TOP PRN PRN Skin Care Nicotine 1 patch 10/19/24 21:07 10/22/24 08:26 Nicotine 21 Mg Patch TOP 1 patch DAILY CALIXTO Administration Nystatin 1 applic 10/21/24 21:00 10/22/24 08:28 Nystatin Powder 15 Gm TOP 1 applic BID CALIXTO Administration Ondansetron HCl 4 mg 10/18/24 21:59 Ondansetron 4 Mg/2 Ml Vial IVP Q6HR PRN Nausea / Vomiting Oxycodone HCl 5 mg 10/18/24 21:59 10/22/24 08:27 Oxycodone 5 Mg Tablet PO 5 mg Q4HR PRN Administration Pain 5 to 7 Pantoprazole Sodium 40 mg 10/19/24 07:00 10/22/24 06:51 Pantoprazole 40 Mg Tablet PO 40 mg QDAC CALIXTO Administration Polyethylene Glycol 17 gm 10/20/24 09:00 10/22/24 08:26 Polyethylene Glycol 3350 17 Gm Packet PO 17 gm DAILY CALIXTO Administration Prednisone 40 mg 10/20/24 08:00 10/22/24 08:27 Prednisone 20 Mg Tablet PO 10/23/24 08:01 40 mg DAILYWM CALIXTO Administration Multivit/Folic Acid/Iron 1 tab 10/19/24 09:00 10/22/24 08:27 Vitamin Tablet PO 1 tab DAILY CALIXTO Administration Prochlorperazine Edisylate 10 mg 10/18/24 21:59 Prochlorperazine 10 Mg/2 Ml Vial IVP Q6HR PRN Nausea / Vomiting Quetiapine Fumarate 50 mg 10/18/24 21:59 10/21/24 20:13 Quetiapine 25 Mg Tablet PO 50 mg QPM CALIXTO Administration Sodium Chloride 10 ml 10/19/24 01:00 10/22/24 08:28 Sodium Chloride Flush 0.9% 10 Ml Syringe IVP 10 ml 0100,0900,1700 CALIXTO Administration Sodium Chloride 10 ml 10/18/24 21:59 10/20/24 06:22 Sodium Chloride Flush 0.9% 10 Ml Syringe IVP 10 ml PRN PRN Administration NEEDED PER PROVIDER ORDERS Sodium Chloride 2 gm 10/21/24 21:00 10/22/24 08:27 Sodium Chloride 1 Gm Tablet PO 2 gm BID CALIXTO Administration Thiamine HCl 100 mg 10/19/24 09:00 10/22/24 08:28 Thiamine 100 Mg Tablet PO 100 mg DAILY CALIXTO Administration Zinc Oxide 113 gm 10/21/24 14:17 10/21/24 18:03 Cod Liver Oil/Zinc Oxide 113 Gm Tube TOP 1 applic PRN PRN Administration Skin Care Objective Vital Signs/Intake & Output Reviewed Vital Signs: Yes Vital Signs: Vital Signs x48h Temp Pulse Pulse Resp BP Pulse Ox O2 Flow Rate 10/22/24 08:30 37.1 C 72 16 131/74 H 94 1 10/22/24 07:09 80 16 10/22/24 03:00 36.9 C 74 15 139/71 H 94 2 Intake & Output: Intake & Output 10/19/24 10/20/24 10/21/24 10/22/24 23:59 23:59 23:59 23:59 Intake Total 3912 / 3912 2730 / 2730 580 / 580 Output Total 2255 / 2255 1795 / 1795 3950 / 3950 500 / 500 Balance 1657 / 1657 935 / 935 -3370 / -3370 -500 / -500 Weight (kg) 68.5 kg 72.5 kg 72 kg 71 kg Objective General Appearance: positive No acute distress and Lethargic (patient is somnolent and complaining of tiredness but able to converse in full sentences and participate in her care ) Eyes Bilateral: positive PERRL, EOMI, No lid inflammation, Conjunctivae nml and No scleral icterus ENT: positive No signs of dehydration Neck: positive No JVD and Trachea midline; negative Lymphadenopathy (R), Lymphadenopathy (L) or Stiff neck Respiratory: positive No respiratory distress and Rales (mild, posterior, bilateral lower lobes ); negative Breath sounds nml, Wheezes or Rhonchi Cardiovascular: positive Regular rate & rhythm Abdomen: positive Non-tender and No distention Back: negative Nml inspection (kyphosis) Skin: positive Warm and Dry; negative Color nml (various resolving ecchymosis, visualized bilateral periorbital, bilateral hands, forehead, right elbow, left back, left foot)), Cyanosis or Diaphoresis Neurologic/Psychiatric: positive Oriented x3, CN's nml (2-12) (grossly intact) and Depressed mood/affect (euthymic); negative Motor nml (activity tremor in bilateral hands, weakness to external grinder strength and elbow flexion ) or Facial droop Lab Results 10/22/24 03:57 10/22/24 03:57 Other Labs: Lab Results x24hrs 10/22/24 10/21/24 10/21/24 Range/Units 03:57 21:43 17:55 WBC 8.0 (4.8-10.8) x10^3/uL RBC 3.50 L (4.20-5.40) 10^6/uL Hgb 8.9 L (12.0-16.0) g/dL Hct 28.8 L (37.0-47.0) % MCV 82.3 (81.0-99.0) fL MCH 25.4 L (27.0-31.0) pg MCHC 30.9 L (32.0-36.0) g/dL RDW 18.7 H (12.0-15.0) % Plt Count 225 (130-450) 10^3/uL MPV 9.7 (7.9-10.8) fL Neut # (Auto) 5.2 (1.5-6.6) 10^3/uL Lymph # (Auto) 2.0 (1.5-3.5) 10^3/uL [place] # (Auto) 0.6 (0.0-1.0) 10^3/uL Eos # (Auto) 0.1 (0.0-0.7) 10^3/uL Baso # (Auto) 0.0 (0.0-0.1) 10^3/uL Absolute Nucleated RBC 0.00 x10^3/uL Nucleated RBC % 0.0 /100WBC Sodium 133 L 132 L 129 L (135-145) mmol/L Potassium 3.2 L (3.5-4.5) mmol/L Chloride 97 L (101-111) mmol/L Carbon Dioxide 32 (21-32) mmol/L Anion Gap 4.0 L (6-13) BUN 8 (6-20) mg/dL Creatinine 0.3 L (0.6-1.3) mg/dL Estimated GFR (MDRD) 225 (>89) Glucose 101 (74-104) mg/dL Calcium 8.4 L (8.5-10.3) mg/dL Phosphorus 3.0 (2.5-5.0) mg/dL Magnesium 1.8 (1.7-2.3) mg/dL 10/21/24 10/21/24 Range/Units 13:54 09:40 WBC (4.8-10.8) x10^3/uL RBC (4.20-5.40) 10^6/uL Hgb (12.0-16.0) g/dL Hct (37.0-47.0) % MCV (81.0-99.0) fL MCH (27.0-31.0) pg MCHC (32.0-36.0) g/dL RDW (12.0-15.0) % Plt Count (130-450) 10^3/uL MPV (7.9-10.8) fL Neut # (Auto) (1.5-6.6) 10^3/uL Lymph # (Auto) (1.5-3.5) 10^3/uL [place] # (Auto) (0.0-1.0) 10^3/uL Eos # (Auto) (0.0-0.7) 10^3/uL Baso # (Auto) (0.0-0.1) 10^3/uL Absolute Nucleated RBC x10^3/uL Nucleated RBC % /100WBC Sodium 128 L 132 L (135-145) mmol/L Potassium (3.5-4.5) mmol/L Chloride (101-111) mmol/L Carbon Dioxide (21-32) mmol/L Anion Gap (6-13) BUN (6-20) mg/dL Creatinine (0.6-1.3) mg/dL Estimated GFR (MDRD) (>89) Glucose (74-104) mg/dL Calcium (8.5-10.3) mg/dL Phosphorus (2.5-5.0) mg/dL Magnesium (1.7-2.3) mg/dL Diagnostic Imaging Diagnostic Imaging Results: positive Final report reviewed Diagnostic Imaging Comments: Cervical Spine CT 10/18/2024: IMPRESSION: No acute CT abnormality of the cervical spine. Head CT 10/18/2024: IMPRESSION: No acute intracranial abnormality. Facial Bones CT 10/18/2024: IMPRESSION: Acute soft tissue hematoma overlying the frontal bone and periorbital regions without other acute CT facial bone abnormality. Elbow X-ray 10/18/2024: IMPRESSION: No acute fracture or dislocation of the right elbow. Toe X-ray 10/18/2024: IMPRESSION: Acute minimally displaced fractures of the 4th digit proximal phalangeal base, 4th metatarsal neck, and 3rd digit proximal phalangeal medial base. Chest CT 10/18/2024: IMPRESSION: No traumatic injury to the chest. No acute displaced rib fractures as clinically queried. Abdomen/Pelvis CT 10/18/2024: IMPRESSION: No intra-abdominal or intrapelvic traumatic abnormality is identified. Left hip soft tissue contusion is suspected. No displaced fracture or dislocation. Nonspecific lower lung groundglass opacities possibly infectious/inflammatory. Fluid and wall thickening of the distal esophagus, possibly reflux esophagitis, but nonspecific, consider endoscopy correlation if needed. Significant hepatic steatosis. Liquid distal colonic and rectal contents, correlate with diarrhea and any symptoms of colitis Limited noncontrast CT. Chest X-ray 10/20/2024: IMPRESSION: Peribronchial cuffing with increased interstitial markings, suggestive of moderate pulmonary edema. Other Results/Comments Other Results/Comments: I have reviewed the patient's labs. Her WBC remains normal. Neutrophil # is now normal. Her RBC, Hgb, Hct, and MCH are still low but trending up. Her MCHC is still low and unchanged. Her MCV is now normal. Her RDW is high and trending up. Her sodium is low but trending up. Her potassium is now low, this could be secondary to initiation of furosemide yesterday. Chloride is low but trending up. Anion gap is low and trending down. Calcium is low but trending up. Creatinine is still low and unchanged. ABX Reporting Has patient been on IV antibiotics over the past 48 hours?: Yes Sepsis Event Note (H) Sepsis Criteria Sepsis Criteria: Recorded Heart Rate greater than 90 bpm and WBC count greater than 12,000 or less than 4000 Assessment/Plan Problem List (1) Alcohol withdrawal: Impression: - CIWA score 8 this morning and 4 this afternoon indicating the patient is still experiencing active alcohol withdrawal - Reduced chlordiazepoxide to 5mg PO every 6 hours since withdrawal is improving and patient is somnolent this morning and complaining of being tired - Plan to continue PO lorazepam 2mg every hour as needed - Plan to continue PO thiamine 100 mg daily Qualifiers: Complication of substance-induced condition: uncomplicated Qualified Code(s): F10.930 - Alcohol use, unspecified with withdrawal, uncomplicated (2) Acute hyponatremia: Impression: - Likely beer potomania - Encouraged patient to improve her food intake - Awaiting results of urine studies to assess osmolality - Sodium is still low but trending up at 133 mmol/L this morning - Goal correction no more than 8 mmol/L within 24 hours - Plan to continue PO sodium chloride 2mg twice daily dosing - Plan to continue free water restriction at 1500 ml/day - Will continue to trend sodium levels (3) COPD (chronic obstructive pulmonary disease): Impression: - Diffuse, mild crackles heard in lower lobes on exam today and patient reports an intermittent phlegmy cough that wakes her up at night - O2 is within normal limits on 1 L of O2 via nasal cannula today - 10/18/[address] indicated emphysema on the findings - 10/20/2024 Chest X-Ray noted peribronchial cuffing with increased interstitial markings, suggestive of moderate pulmonary edema - Awaiting results of echocardiogram to determine if there is congestive heart failure contributing pulmonary edema - Progressive mobility protocol in place, discussed with nursing team trying to get patient up in the chair throughout the day, this will help open up her lungs - Ordered PO guaifenesin/dextromethorphan 10ml as needed every 6 hours to loosen mucous and suppress her cough - Plan to continue inhaled budesonide 0.5 mg twice daily - Plan to continue inhaled formoterol fumarate 20mcg twice daily - Plan to continue inhaled albuterol 2.5 mg four times daily as needed - Plan to continue PO prednisone 40 mg daily today for a 5 day steroid burst (day 4/5) Qualifiers: COPD type: unspecified COPD Qualified Code(s): J44.9 - Chronic obstructive pulmonary disease, unspecified (4) Hypokalemia: Impression: - Potassium low at 3.2 mmol/L this morning - Ordered a one time dose of PO potassium chloride 40 meq - Will continue to trend (5) Closed fracture of toe: Impression: - X-ray from 10/18/2024 indicated acute minimally displaced fractures of the 4th digit proximal phalangeal base, 4th metatarsal neck, and 3rd digit proximal phalangeal medial base - Patient continues to deny any significant pain in her left foot, including when weight bearing - Patient has a post-op shoe to be worn on her left foot when weight-bearing per PT recommendation - Plan to continue PO acetaminophen 1,000 mg every 8 hours for pain management Qualifiers: Encounter type: subsequent encounter (6) Depression: Impression: - Patient is complaining of worsening depression today - Plan to continue home medications duloxetine and quetiapine Qualifiers: Depression Type: unspecified Qualified Code(s): F32.A - Depression, unspecified (7) Skin breakdown: Impression: - Patient has significant skin erythema and shearing along her right gluteal fold and right groin causing her 9/10 pain - Plan for nursing staff to continue using topic zinc cream in addition to barrier cream and replace her brief with chucks only - Plan to continue high protein supplementation to promote optimal nutrition and wound healing (8) Physical deconditioning: Impression: - PT recommends patient discharge to SNF/LTC as she does not appear to be safe living independently at this time (9) Intertrigo: Impression: - Mild left pannus intertrigo - Nystatin powder ordered to cover for mckenzie intertrigo (10) DM type 2 (diabetes mellitus, type 2): Impression: - Recent hemoglobin A1c came back normal at 5.6 - Hypoglycemia protocol in place Qualifiers: Diabetes mellitus complication status: without complication Diabetes mellitus longterm insulin use: without meterman use Qualified Code(s): E11.9 - Type 2 diabetes mellitus without complications (11) Anemia: Impression: - Iron studies today showed a mixed anemia with some evidence of anemia of chronic disease as well as iron deficiency - Ordered PO ferrous sulfate 325 mg daily Qualifiers: Anemia type: unspecified type Qualified Code(s): D64.9 - Anemia, unspecified (12) UTI (urinary tract infection): Impression: - Patient WBC remains normal and she remains afebrile - No further interventions needed Qualifiers: Hematuria presence: with hematuria Urinary tract infection type: site unspecified Qualified Code(s): N39.0 - Urinary tract infection, site not specified; R31.9 - Hematuria, unspecified (13) Metabolic acidosis: Impression: - Resolved after aggressive IV fluids Documented by User: Momo Carmona DNP 10/22/24 13:17 Objective Lab Results 10/22/24 03:57 10/22/24 03:57 Assessment/Plan Problem List (1) Alcohol withdrawal: Qualifiers: Complication of substance-induced condition: uncomplicated Qualified Code(s): F10.930 - Alcohol use, unspecified with withdrawal, uncomplicated (2) Acute hyponatremia: (3) COPD (chronic obstructive pulmonary disease): Qualifiers: COPD type: unspecified COPD Qualified Code(s): J44.9 - Chronic obstructive pulmonary disease, unspecified (4) Hypokalemia: (5) Closed fracture of toe: Qualifiers: Encounter type: subsequent encounter (6) Depression: Qualifiers: Depression Type: unspecified Qualified Code(s): F32.A - Depression, unspecified (7) Skin breakdown: (8) Physical deconditioning: (9) Intertrigo: (10) DM type 2 (diabetes mellitus, type 2): Qualifiers: Diabetes mellitus complication status: without complication Diabetes mellitus longterm insulin use: without meterman use Qualified Code(s): E11.9 - Type 2 diabetes mellitus without complications (11) Anemia: Qualifiers: Anemia type: unspecified type Qualified Code(s): D64.9 - Anemia, unspecified (12) UTI (urinary tract infection): Qualifiers: Hematuria presence: with hematuria Urinary tract infection type: site unspecified Qualified Code(s): N39.0 - Urinary tract infection, site not specified; R31.9 - Hematuria, unspecified (13) Metabolic acidosis:
[2024-10-22] MEDS: POTASSIUM CHLORIDE 20 MEQ TABLET PO ONE (09:36)
[2024-10-22 10:33] LABS: ABSOLUTE RETICS # AUTO 0.065 10^6/uL (0.020-0.110); RED BLOOD COUNT 3.51 10^6/uL (4.20-5.40); RETICULOCYTE COUNT % (AUTO) 1.86 % (0.5-2.3)
[2024-10-22 10:51] LABS: % IRON SATURATION 10 % (20-50); IRON 25 ug/dL (50-212); TOTAL IRON BINDING CAPACITY 242 ug/dL (250-450); TRANSFERRIN 173 mg/dL (203-362)
[2024-10-22] MEDS ORDERED: guaiFENesin/DEXTROMETHORPHAN 10 ML UDC PO PRN (11:17)
[2024-10-22] MEDS: chlordiazePOXIDE 5 MG CAPSULE PO SCH (12:02)
[2024-10-22] MEDS: FERROUS SULFATE 325 MG TABLET PO SCH (13:22)
[2024-10-23] MEDS: MORPHINE 2 MG/ML CARPUJECT IVP PRN (03:14)
[2024-10-23 04:45] LABS: BASOPHILS % (AUTO) 0.4 %; EOSINOPHILS # (AUTO) 0.2 10^3/uL (0.0-0.7); EOSINOPHILS % (AUTO) 1.8 %; HCT - HEMATOCRIT 29.2 % (37.0-47.0); HGB - HEMOGLOBIN 8.9 g/dL (12.0-16.0); LYMPHOCYTES # (AUTO) 2.2 10^3/uL (1.5-3.5); LYMPHOCYTES % (AUTO) 26.8 %; MEAN CORPUSCULAR HEMOGLOBIN 25.6 pg (27.0-31.0); MEAN CORPUSCULAR HGB CONC 30.5 g/dL (32.0-36.0); MEAN CORPUSCULAR VOLUME 83.9 fL (81.0-99.0); MEAN PLATELET VOLUME 9.7 fL (7.9-10.8); MONOCYTES % (AUTO) 12.2 %; NEUTROPHILS # (AUTO) 4.7 10^3/uL (1.5-6.6); NEUTROPHILS % (AUTO) 57.3 %; PLT - PLATELET COUNT 248 10^3/uL (130-450); RED BLOOD COUNT 3.48 10^6/uL (4.20-5.40); RED CELL DISTRIBUTION WIDTH 19.5 % (12.0-15.0); WHITE BLOOD COUNT 8.1 x10^3/uL (4.8-10.8)
[2024-10-23 05:00] LABS: CALCIUM 8.8 mg/dL (8.5-10.3); CREATININE 0.3 mg/dL (0.6-1.3); PHOSPHORUS 4.1 mg/dL (2.5-5.0); POTASSIUM 3.8 mmol/L (3.5-4.5)
--- NOTE | 2024-10-23 11:28 | PROVIDER PROGRESS NOTE ---
<Statement entered by Momo Carmona DNP - 10/23/24 18:18> Patient was seen and examined by me with a separate encounter after being seen by [facility] student. I reviewed the student's documentation including patient history, physical examination, laboratory, imaging, clinical assessment and treatment plan. I have discussed the management of the patient with the student, and with the patient. There are no changes. Discontinue CIWA protocol, With much improvement in withdrawal symptoms. Patient is now medically clear, pending placement Subjective Prog Note Date Prog Note Date: 10/23/24 Prog Note Time: 12:03 Subjective Pt reports feeling: No change Subjective: Marcia did not note any improvements today. She reports she slept poorly last night due to pain, primarily along her right gluteal fold where she has open sores. She also still reports pain in her face around her bruising, and pain in her right arm. She describes her pain as severe this morning but moderate this afternoon after taking hydrocodone/acetaminophen. She denies any shortness of breath or chest pain/squeezing/tightness/pressure. She reports she is unsure when she had her last bowel movement but she is able to pass gas. She notes that iron supplements typically make her constipated. After thorough encouragement and education from social work and the rest of her medical team, Marcia agrees that she is not safe to discharge to home right now. She is agreeable to discharge to a senior care facility for physical rehabilitation. Current Medications Current Medications Current Medications: Current Medications Generic Name Dose Route Start Last Admin Trade Name Freq PRN Reason Stop Dose Admin Acetaminophen 1,000 mg 10/18/24 21:59 10/23/24 06:23 Acetaminophen 500 Mg Tablet PO 1,000 mg Q8H CALIXTO Administration Albuterol 2.5 mg 10/18/24 22:15 Albuterol Neb 2.5 Mg/3 Ml INH RTQID PRN Wheezing Amlodipine Besylate 5 mg 10/19/24 09:00 10/23/24 08:18 Amlodipine 5 Mg Tablet PO 5 mg DAILY CALIXTO Administration Atorvastatin Calcium 10 mg 10/19/24 21:00 10/22/24 21:09 Atorvastatin 10 Mg Tablet PO 10 mg QPM CALIXTO Administration Budesonide 0.5 mg 10/19/24 07:00 10/23/24 07:07 Budesonide 0.5 Mg/2 Ml Neb INH 0.5 mg RTBID CALIXTO Administration Carboxymethylcellulose 1 drops 10/18/24 21:59 10/19/24 06:14 Carboxymethylcellulose Ophth Drops EACHEYE 1 drops Q4HR PRN Administration Dry Eye Duloxetine HCl 60 mg 10/19/24 12:00 10/23/24 08:18 Duloxetine 60 Mg Capsule PO 60 mg DAILY CALIXTO Administration Enoxaparin Sodium 40 mg 10/20/24 09:00 10/23/24 08:18 Enoxaparin 40 Mg/0.4 Ml Syringe SUBQ 40 mg DAILY CALIXTO Administration Ferrous Sulfate 325 mg 10/22/24 13:00 10/23/24 08:18 Ferrous Sulfate 325 Mg Tablet PO 325 mg DAILYWM CALIXTO Administration Formoterol Fumarate 20 mcg 10/19/24 07:00 10/23/24 07:07 Formoterol Fumarate Neb 20 Mcg/2 Ml INH 20 mcg RTBID CALIXTO Administration Gabapentin 1,200 mg 10/19/24 14:00 10/23/24 06:24 Gabapentin 400 Mg Capsule PO 1,200 mg TID CALIXTO Administration Guaifenesin 10 ml 10/22/24 11:17 Guaifenesin/Dextromethorphan 10 Ml Udc PO Q6HR PRN Cough Lidocaine 1 applic 10/20/24 13:00 10/23/24 08:19 Lidocaine Ointment 5% 35.44 Gm Tube TOP 1 applic QID CALIXTO Administration Lorazepam 2 mg 10/20/24 15:20 10/21/24 08:37 Lorazepam 1 Mg Tablet PO 2 mg Q1H PRN Administration CIWA > 8 Protocol Morphine Sulfate 2 mg 10/23/24 03:04 10/23/24 03:14 Morphine 2 Mg/Ml Carpuject IVP 10/24/24 03:03 2 mg ONCE PRN Administration PAIN >8 Multi-Ingredient Ointment 1 applic 10/21/24 14:17 Zinc Oxide 20% Oint 30 Gm Tube TOP PRN PRN Skin Care Nicotine 1 patch 10/19/24 21:07 10/23/24 08:19 Nicotine 21 Mg Patch TOP 1 patch DAILY CALIXTO Administration Nystatin 1 applic 10/21/24 21:00 10/23/24 08:18 Nystatin Powder 15 Gm TOP 1 applic BID CALIXTO Administration Ondansetron HCl 4 mg 10/18/24 21:59 Ondansetron 4 Mg/2 Ml Vial IVP Q6HR PRN Nausea / Vomiting Oxycodone HCl 5 mg 10/18/24 21:59 10/23/24 11:05 Oxycodone 5 Mg Tablet PO 5 mg Q4HR PRN Administration Pain 5 to 7 Pantoprazole Sodium 40 mg 10/19/24 07:00 10/23/24 06:24 Pantoprazole 40 Mg Tablet PO 40 mg QDAC CALIXTO Administration Polyethylene Glycol 17 gm 10/20/24 09:00 10/23/24 08:19 Polyethylene Glycol 3350 17 Gm Packet PO Not Given DAILY CALIXTO Multivit/Folic Acid/Iron 1 tab 10/19/24 09:00 10/23/24 08:18 Vitamin Tablet PO 1 tab DAILY CALIXTO Administration Prochlorperazine Edisylate 10 mg 10/18/24 21:59 Prochlorperazine 10 Mg/2 Ml Vial IVP Q6HR PRN Nausea / Vomiting Quetiapine Fumarate 50 mg 10/18/24 21:59 10/22/24 21:09 Quetiapine 25 Mg Tablet PO 50 mg QPM CALIXTO Administration Sodium Chloride 10 ml 10/19/24 01:00 10/23/24 08:18 Sodium Chloride Flush 0.9% 10 Ml Syringe IVP 10 ml 0100,0900,1700 CALIXTO Administration Sodium Chloride 10 ml 10/18/24 21:59 10/20/24 06:22 Sodium Chloride Flush 0.9% 10 Ml Syringe IVP 10 ml PRN PRN Administration NEEDED PER PROVIDER ORDERS Sodium Chloride 2 gm 10/21/24 21:00 10/23/24 08:17 Sodium Chloride 1 Gm Tablet PO 2 gm BID CALIXTO Administration Thiamine HCl 100 mg 10/19/24 09:00 10/23/24 08:18 Thiamine 100 Mg Tablet PO 100 mg DAILY CALIXTO Administration Zinc Oxide 113 gm 10/21/24 14:17 10/21/24 18:03 Cod Liver Oil/Zinc Oxide 113 Gm Tube TOP 1 applic PRN PRN Administration Skin Care Objective Vital Signs/Intake & Output Reviewed Vital Signs: Yes Vital Signs: Vital Signs x48h Temp Pulse Pulse Resp BP Pulse Ox O2 Flow Rate 10/23/24 08:07 36.7 C 76 18 138/62 H 95 2 10/23/24 07:08 2 10/23/24 07:08 66 16 10/23/24 04:00 65 15 109/62 93 2 Intake & Output: Intake & Output 10/20/24 10/21/24 10/22/24 10/23/24 23:59 23:59 23:59 23:59 Intake Total 2730 / 2730 580 / 580 630 / 630 120 / 120 Output Total 1795 / 1795 3950 / 3950 800 / 800 150 / 150 Balance 935 / 935 -3370 / -3370 -170 / -170 -30 / -30 Weight (kg) 72.5 kg 72 kg 71 kg 72 kg Objective General Appearance: positive No acute distress (sitting upright in her chair watching TV ) and Alert Eyes Bilateral: positive PERRL, EOMI, Conjunctivae nml, No scleral icterus and Other (resolving periorbital ecchymosis ) ENT: positive No signs of dehydration Neck: positive Thyroid nml, No JVD, Trachea midline and Lymphadenopathy (L) (mildly tender and mobile left cervical lymph node ); negative Lymphadenopathy (R) or Stiff neck Respiratory: positive No respiratory distress and Rales (mild, posterior, bilateral lower lobes, improve after coughing ); negative Breath sounds nml, Wheezes or Rhonchi Cardiovascular: positive Regular rate & rhythm Abdomen: positive Non-tender, Nml bowel sounds and No distention Back: negative Nml inspection (kyphosis ) Skin: positive Warm and Dry; negative Color nml (various resolving ecchymosis, visualized bilateral periorbital, bilateral hands, forehead, right elbow, left back, left foot), Cyanosis or Diaphoresis Extremities: positive No pedal edema; negative Calf tenderness Neurologic/Psychiatric: positive Oriented x3, CN's nml (2-12) (grossly intact ) and Depressed mood/affect; negative Motor nml (improving activity tremor in bilateral hands, improving weakness to head librarian strength and elbow flexion) or Facial droop Lab Results 10/23/24 04:08 10/23/24 04:08 Other Labs: Lab Results x24hrs 10/23/24 Range/Units 04:08 WBC 8.1 (4.8-10.8) x10^3/uL RBC 3.48 L (4.20-5.40) 10^6/uL Hgb 8.9 L (12.0-16.0) g/dL Hct 29.2 L (37.0-47.0) % MCV 83.9 (81.0-99.0) fL MCH 25.6 L (27.0-31.0) pg MCHC 30.5 L (32.0-36.0) g/dL RDW 19.5 H (12.0-15.0) % Plt Count 248 (130-450) 10^3/uL MPV 9.7 (7.9-10.8) fL Neut # (Auto) 4.7 (1.5-6.6) 10^3/uL Lymph # (Auto) 2.2 (1.5-3.5) 10^3/uL [place] # (Auto) 1.0 (0.0-1.0) 10^3/uL Eos # (Auto) 0.2 (0.0-0.7) 10^3/uL Baso # (Auto) 0.0 (0.0-0.1) 10^3/uL Absolute Nucleated RBC 0.00 x10^3/uL Nucleated RBC % 0.0 /100WBC Sodium 133 L (135-145) mmol/L Potassium 3.8 (3.5-4.5) mmol/L Chloride 96 L (101-111) mmol/L Carbon Dioxide 33 H (21-32) mmol/L Anion Gap 4.0 L (6-13) BUN 13 (6-20) mg/dL Creatinine 0.3 L (0.6-1.3) mg/dL Estimated GFR (MDRD) 225 (>89) Glucose 117 H (74-104) mg/dL Calcium 8.8 (8.5-10.3) mg/dL Phosphorus 4.1 (2.5-5.0) mg/dL Magnesium 2.0 (1.7-2.3) mg/dL Folate 11.7 (5.90 - >24.8) ng/mL Diagnostic Imaging Diagnostic Imaging Results: positive Final report reviewed Diagnostic Imaging Comments: Cervical Spine CT 10/18/2024: IMPRESSION: No acute CT abnormality of the cervical spine. Head CT 10/18/2024: IMPRESSION: No acute intracranial abnormality. Facial Bones CT 10/18/2024: IMPRESSION: Acute soft tissue hematoma overlying the frontal bone and periorbital regions without other acute CT facial bone abnormality. Elbow X-ray 10/18/2024: IMPRESSION: No acute fracture or dislocation of the right elbow. Toe X-ray 10/18/2024: IMPRESSION: Acute minimally displaced fractures of the 4th digit proximal phalangeal base, 4th metatarsal neck, and 3rd digit proximal phalangeal medial base. Chest CT 10/18/2024: IMPRESSION: No traumatic injury to the chest. No acute displaced rib fractures as clinically queried. Abdomen/Pelvis CT 10/18/2024: IMPRESSION: No intra-abdominal or intrapelvic traumatic abnormality is identified. Left hip soft tissue contusion is suspected. No displaced fracture or dislocation. Nonspecific lower lung groundglass opacities possibly infectious/inflammatory. Fluid and wall thickening of the distal esophagus, possibly reflux esophagitis, but nonspecific, consider endoscopy correlation if needed. Significant hepatic steatosis. Liquid distal colonic and rectal contents, correlate with diarrhea and any symptoms of colitis Limited noncontrast CT. Chest X-ray 10/20/2024: IMPRESSION: Peribronchial cuffing with increased interstitial markings, suggestive of moderate pulmonary edema. Echocardiogram 10/20/2024: Interpretation Summary: 1. Mild concentric LVH with normal systolic function, EF 70%. The left atrium is normal in size. 2. Mild aortic regurgitation. 3. Mild mitral regurgitation. 4. Moderate pulmonary hypertension, PASP 47 mm Hg. Normal right ventricular size and function. Other Results/Comments Other Results/Comments: I have reviewed the patient's labs. Her WBC remains normal. Her RBC is still low and trending lower. Her Hgb is low and unchanged. Her Hct is low but trending up. Her MCH is low but trending up. Her MCHC is low and trending lower. RDW is still high and trending higher. Sodium is still low but stable at 133. Her potassium is now within normal limits. Chloride is low and trending lower. Carbon dioxide is elevated at 33. Anion gap is low and unchanged. Creatinine is low and unchanged. Calcium is now normal. ABX Reporting Has patient been on IV antibiotics over the past 48 hours?: No Assessment/Plan Problem List (1) Alcohol withdrawal: Impression: - CIWA score 3 this morning - Discontinued CIWA protocol - Discontinued chlordiazepoxide as withdrawal continues to improve - Discontinued telemetry - Plan to continue PO lorazepam 2mg every hour as needed - Plan to continue PO thiamine 100 mg daily Qualifiers: Complication of substance-induced condition: uncomplicated Qualified Code(s): F10.930 - Alcohol use, unspecified with withdrawal, uncomplicated (2) Acute hyponatremia: Impression: - Likely beer potomania - Awaiting results of urine studies to assess osmolality - Sodium is still low but stable at 133 mmol/L this morning - Discontinued telemetry - Plan to continue PO sodium chloride 2mg twice daily dosing - Plan to continue free water restriction at 1500 ml/day (3) COPD (chronic obstructive pulmonary disease): Impression: - Mild crackles heard in posterior lower lobes on exam today, they improve with coughing - O2 is within normal limits on 2 L of O2 via nasal cannula today. Her baseline is oxygen use as-needed at home. - 10/18/[address] indicated emphysema on the findings - 10/20/2024 Chest X-Ray noted peribronchial cuffing with increased interstitial markings, suggestive of moderate pulmonary edema - 10/20/2024 echocardiogram did not indicate any congestive heart failure that would contribute to pulmonary edema. There was moderate pulmonary hypertension with normal right ventricular size and function. - Progressive mobility protocol in place, nursing team continues to get patient up in the chair throughout the day, this will help open up her lungs - Discontinued PO prednisone 40 mg daily today for a 5 day steroid burst (day 5/5 completed) - Plan to continue PO guaifenesin/dextromethorphan 10ml as needed every 6 hours to loosen mucous and suppress her cough - Plan to continue inhaled budesonide 0.5 mg twice daily - Plan to continue inhaled formoterol fumarate 20mcg twice daily - Plan to continue inhaled albuterol 2.5 mg four times daily as needed Qualifiers: COPD type: unspecified COPD Qualified Code(s): J44.9 - Chronic obstructive pulmonary disease, unspecified (4) Hypokalemia: Impression: - Resolved with a one time dose of PO potassium chloride 40 meq - Potassium is now normal at 3.8 mmol/L this morning (5) Skin breakdown: Impression: - Patient has significant skin erythema and shearing along her right gluteal fold and right groin causing her severe pain - According to nursing report, the skin breakdown looks the same today and does not appear to be worsening - Plan for nursing staff to continue using topic zinc cream in addition to barrier cream and replace her brief with chucks only - Plan to continue high protein supplementation to promote optimal nutrition and wound healing (6) Closed fracture of toe: Impression: - X-ray from 10/18/2024 indicated acute minimally displaced fractures of the 4th digit proximal phalangeal base, 4th metatarsal neck, and 3rd digit proximal phalangeal medial base - Patient continues to deny any significant pain in her left foot, including when weight bearing - Patient has a post-op shoe to be worn on her left foot when weight-bearing per PT recommendation - Plan to continue PO acetaminophen 1,000 mg every 8 hours for pain management Qualifiers: Encounter type: subsequent encounter (7) Depression: Impression: - Plan to continue home medications duloxetine and quetiapine Qualifiers: Depression Type: unspecified Qualified Code(s): F32.A - Depression, unspecified (8) Physical deconditioning: Impression: - PT recommends patient discharge to SNF/LTC as she does not appear to be safe living independently at this time - Patient has reached an understanding that she is unsafe to care for herself at home and will benefit from discharge to a senior care facility for rehabilitation (9) Intertrigo: Impression: - Resolving left pannus intertrigo - Nystatin powder ordered to cover for mckenzie intertrigo (10) DM type 2 (diabetes mellitus, type 2): Impression: - Recent hemoglobin A1c came back normal at 5.6 - Hypoglycemia protocol in place Qualifiers: Diabetes mellitus complication status: without complication Diabetes mellitus usp insulin use: without meterman use Qualified Code(s): E11.9 - Type 2 diabetes mellitus without complications (11) Anemia: Impression: - Iron studies today show a mixed anemia with some evidence of anemia of chronic disease as well as iron deficiency - Plan to continue PO ferrous sulfate 325 mg daily Qualifiers: Anemia type: unspecified type Qualified Code(s): D64.9 - Anemia, unspecified (12) UTI (urinary tract infection): Impression: - Resolved. Likely a dirty catch and not an initial UTI to begin with. - Patient WBC remains normal and she remains afebrile - No further interventions needed Qualifiers: Hematuria presence: with hematuria Urinary tract infection type: site unspecified Qualified Code(s): N39.0 - Urinary tract infection, site not specified; R31.9 - Hematuria, unspecified (13) Metabolic acidosis: Impression: - Resolved after aggressive IV fluids
[2024-10-23 14:08] LABS: OSMOLALITY 254 mOsmol/kg (280-301); OSMOLALITY URINE 555 mOsmol/kg (.)
[2024-10-24 05:51] LABS: BASOPHILS % (AUTO) 0.5 %; EOSINOPHILS # (AUTO) 0.2 10^3/uL (0.0-0.7); EOSINOPHILS % (AUTO) 2.8 %; HCT - HEMATOCRIT 28.9 % (37.0-47.0); HGB - HEMOGLOBIN 8.7 g/dL (12.0-16.0); LYMPHOCYTES # (AUTO) 2.5 10^3/uL (1.5-3.5); LYMPHOCYTES % (AUTO) 33.6 %; MEAN CORPUSCULAR HEMOGLOBIN 25.7 pg (27.0-31.0); MEAN CORPUSCULAR HGB CONC 30.1 g/dL (32.0-36.0); MEAN CORPUSCULAR VOLUME 85.3 fL (81.0-99.0); MEAN PLATELET VOLUME 9.3 fL (7.9-10.8); MONOCYTES # (AUTO) 0.8 10^3/uL (0.0-1.0); MONOCYTES % (AUTO) 10.3 %; NEUTROPHILS # (AUTO) 3.9 10^3/uL (1.5-6.6); NEUTROPHILS % (AUTO) 51.3 %; PLT - PLATELET COUNT 262 10^3/uL (130-450); RED BLOOD COUNT 3.39 10^6/uL (4.20-5.40); RED CELL DISTRIBUTION WIDTH 20.1 % (12.0-15.0); WHITE BLOOD COUNT 7.6 x10^3/uL (4.8-10.8)
[2024-10-24 05:56] LABS: SLIDE REVIEW? Indicated
[2024-10-24 06:07] LABS: CALCIUM 8.5 mg/dL (8.5-10.3); CREATININE 0.3 mg/dL (0.6-1.3); POTASSIUM 3.5 mmol/L (3.5-4.5)
[2024-10-24 06:29] LABS: PLATELET ESTIMATE, MANUAL NORMAL (130-450,000) (NORMAL); PLATELET MORPHOLOGY NORMAL APPEARANCE (NORMAL)
--- NOTE | 2024-10-24 11:31 | PROVIDER PROGRESS NOTE ---
Subjective Prog Note Date Prog Note Date: 10/24/24 Subjective Pt reports feeling: Improved Current Medications Current Medications Current Medications: Current Medications Generic Name Dose Route Start Last Admin Trade Name Freq PRN Reason Stop Dose Admin Acetaminophen 1,000 mg 10/18/24 21:59 10/24/24 06:32 Acetaminophen 500 Mg Tablet PO 1,000 mg Q8H CALIXTO Administration Acetaminophen 1,000 mg 10/24/24 12:00 Acetaminophen 500 Mg Tablet PO Q8H CALIXTO Albuterol 2.5 mg 10/18/24 22:15 Albuterol Neb 2.5 Mg/3 Ml INH RTQID PRN Wheezing Amlodipine Besylate 5 mg 10/19/24 09:00 10/24/24 08:32 Amlodipine 5 Mg Tablet PO 5 mg DAILY CALIXTO Administration Atorvastatin Calcium 10 mg 10/19/24 21:00 10/23/24 21:13 Atorvastatin 10 Mg Tablet PO 10 mg QPM CALIXTO Administration Budesonide 0.5 mg 10/19/24 07:00 10/24/24 06:08 Budesonide 0.5 Mg/2 Ml Neb INH 0.5 mg RTBID CALIXTO Administration Carboxymethylcellulose 1 drops 10/18/24 21:59 10/19/24 06:14 Carboxymethylcellulose Ophth Drops EACHEYE 1 drops Q4HR PRN Administration Dry Eye Duloxetine HCl 60 mg 10/19/24 12:00 10/24/24 08:32 Duloxetine 60 Mg Capsule PO 60 mg DAILY CALIXTO Administration Enoxaparin Sodium 40 mg 10/20/24 09:00 10/24/24 08:32 Enoxaparin 40 Mg/0.4 Ml Syringe SUBQ 40 mg DAILY CALIXTO Administration Ferrous Sulfate 325 mg 10/22/24 13:00 10/24/24 08:32 Ferrous Sulfate 325 Mg Tablet PO 325 mg DAILYWM CALIXTO Administration Formoterol Fumarate 20 mcg 10/19/24 07:00 10/24/24 06:08 Formoterol Fumarate Neb 20 Mcg/2 Ml INH 20 mcg RTBID CALIXTO Administration Gabapentin 1,200 mg 10/19/24 14:00 10/24/24 06:32 Gabapentin 400 Mg Capsule PO 1,200 mg TID CALIXTO Administration Guaifenesin 10 ml 10/22/24 11:17 Guaifenesin/Dextromethorphan 10 Ml Udc PO Q6HR PRN Cough Lidocaine 1 applic 10/20/24 13:00 10/24/24 08:32 Lidocaine Ointment 5% 35.44 Gm Tube TOP 1 applic QID CALIXTO Administration Lorazepam 2 mg 10/20/24 15:20 10/21/24 08:37 Lorazepam 1 Mg Tablet PO 2 mg Q1H PRN Administration CIWA > 8 Protocol Multi-Ingredient Ointment 1 applic 10/21/24 14:17 Zinc Oxide 20% Oint 30 Gm Tube TOP PRN PRN Skin Care Nicotine 1 patch 10/19/24 21:07 10/24/24 08:32 Nicotine 21 Mg Patch TOP 1 patch DAILY CALIXTO Administration Nystatin 1 applic 10/21/24 21:00 10/24/24 08:41 Nystatin Powder 15 Gm TOP 1 applic BID CLAIXTO Administration Ondansetron HCl 4 mg 10/18/24 21:59 Ondansetron 4 Mg/2 Ml Vial IVP Q6HR PRN Nausea / Vomiting Oxycodone HCl 5 mg 10/18/24 21:59 10/24/24 08:40 Oxycodone 5 Mg Tablet PO 5 mg Q4HR PRN Administration Pain 5 to 7 Pantoprazole Sodium 40 mg 10/19/24 07:00 10/24/24 06:32 Pantoprazole 40 Mg Tablet PO 40 mg QDAC CALIXTO Administration Polyethylene Glycol 17 gm 10/20/24 09:00 10/24/24 08:32 Polyethylene Glycol 3350 17 Gm Packet PO 17 gm DAILY CALIXTO Administration Multivit/Folic Acid/Iron 1 tab 10/19/24 09:00 10/24/24 08:31 Vitamin Tablet PO 1 tab DAILY CALIXTO Administration Prochlorperazine Edisylate 10 mg 10/18/24 21:59 Prochlorperazine 10 Mg/2 Ml Vial IVP Q6HR PRN Nausea / Vomiting Quetiapine Fumarate 50 mg 10/18/24 21:59 10/23/24 21:12 Quetiapine 25 Mg Tablet PO 50 mg QPM CALIXTO Administration Sodium Chloride 10 ml 10/19/24 01:00 10/24/24 08:33 Sodium Chloride Flush 0.9% 10 Ml Syringe IVP 10 ml 0100,0900,1700 CALIXTO Administration Sodium Chloride 10 ml 10/18/24 21:59 10/20/24 06:22 Sodium Chloride Flush 0.9% 10 Ml Syringe IVP 10 ml PRN PRN Administration NEEDED PER PROVIDER ORDERS Sodium Chloride 2 gm 10/21/24 21:00 10/24/24 08:31 Sodium Chloride 1 Gm Tablet PO 2 gm BID CALIXTO Administration Thiamine HCl 100 mg 10/19/24 09:00 10/24/24 08:32 Thiamine 100 Mg Tablet PO 100 mg DAILY CALIXTO Administration Tramadol HCl 50 mg 10/24/24 11:21 Tramadol 50 Mg Tablet PO Q4HR PRN Moderate Pain (Level 4-6) Zinc Oxide 113 gm 10/21/24 14:17 10/23/24 21:13 Cod Liver Oil/Zinc Oxide 113 Gm Tube TOP 1 applic PRN PRN Administration Skin Care Objective Vital Signs/Intake & Output Reviewed Vital Signs: Yes Vital Signs: Vital Signs x48h Temp Pulse Pulse Resp BP Pulse Ox O2 Flow Rate 10/24/24 07:36 36.4 C L 64 16 104/61 98 2 10/24/24 06:13 2 10/24/24 06:08 70 16 2 10/24/24 05:02 36.6 C 62 16 117/59 L 97 2 Intake & Output: Intake & Output 10/21/24 10/22/24 10/23/24 10/24/24 23:59 23:59 23:59 23:59 Intake Total 580 / 580 630 / 630 720 / 720 720 / 720 Output Total 3950 / 3950 800 / 800 150 / 150 600 / 600 Balance -3370 / -3370 -170 / -170 570 / 570 120 / 120 Weight (kg) 72 kg 71 kg 72 kg 75.5 kg Objective General Appearance: positive No acute distress and Alert Eyes Bilateral: positive PERRL, EOMI, Conjunctivae nml, No scleral icterus and Other (resolving periorbital ecchymosis ) ENT: positive No signs of dehydration Neck: positive No JVD Respiratory: positive No respiratory distress and Rales (mild, posterior, bilateral lower lobes, improve after coughing ); negative Breath sounds nml Cardiovascular: positive Regular rate & rhythm Abdomen: positive Non-tender, Nml bowel sounds and No distention Back: negative Nml inspection (kyphosis ) Skin: positive Warm and Dry; negative Color nml (various resolving ecchymosis, visualized bilateral periorbital, bilateral hands, forehead, right elbow, left back, left foot) Extremities: positive No pedal edema Neurologic/Psychiatric: positive Oriented x3, CN's nml (2-12) (grossly intact ) and Depressed mood/affect; negative Motor nml (improving activity tremor in bilateral hands, improving weakness to scale model maker strength and elbow flexion) Lab Results 10/24/24 05:43 10/24/24 05:43 Other Labs: Lab Results x24hrs 10/24/24 10/24/24 10/24/24 Range/Units 05:43 05:43 05:43 WBC (4.8-10.8) x10^3/uL RBC (4.20-5.40) 10^6/uL Hgb (12.0-16.0) g/dL Hct (37.0-47.0) % MCV (81.0-99.0) fL MCH (27.0-31.0) pg MCHC (32.0-36.0) g/dL RDW (12.0-15.0) % Plt Count (130-450) 10^3/uL MPV (7.9-10.8) fL Neut # (Auto) (1.5-6.6) 10^3/uL Lymph # (Auto) (1.5-3.5) 10^3/uL [place] # (Auto) (0.0-1.0) 10^3/uL Eos # (Auto) (0.0-0.7) 10^3/uL Baso # (Auto) (0.0-0.1) 10^3/uL Absolute Nucleated RBC x10^3/uL Nucleated RBC % /100WBC Manual Slide Review Platelet Estimate (NORMAL) Platelet Morphology (NORMAL) RBC Morph Micro Appear 1+ POLYCHROMASIA 1+ HYPOCHROMASIA 1+ OVALOCYTES (NORMAL) Sodium 132 L (135-145) mmol/L Potassium 3.5 (3.5-4.5) mmol/L Chloride 96 L (101-111) mmol/L Carbon Dioxide 33 H (21-32) mmol/L Anion Gap 3.0 L (6-13) BUN 10 (6-20) mg/dL Creatinine 0.3 L (0.6-1.3) mg/dL Estimated GFR (MDRD) 225 (>89) Glucose 129 H (74-104) mg/dL Serum Osmolality (280-301) mOsmol/kg Calcium 8.5 (8.5-10.3) mg/dL Urine Osmolality (.) mOsmol/kg 10/24/24 10/19/24 Range/Units 05:43 21:21 WBC 7.6 (4.8-10.8) x10^3/uL RBC 3.39 L (4.20-5.40) 10^6/uL Hgb 8.7 L (12.0-16.0) g/dL Hct 28.9 L (37.0-47.0) % MCV 85.3 (81.0-99.0) fL MCH 25.7 L (27.0-31.0) pg MCHC 30.1 L (32.0-36.0) g/dL RDW 20.1 H (12.0-15.0) % Plt Count 262 (130-450) 10^3/uL MPV 9.3 (7.9-10.8) fL Neut # (Auto) 3.9 (1.5-6.6) 10^3/uL Lymph # (Auto) 2.5 (1.5-3.5) 10^3/uL [place] # (Auto) 0.8 (0.0-1.0) 10^3/uL Eos # (Auto) 0.2 (0.0-0.7) 10^3/uL Baso # (Auto) 0.0 (0.0-0.1) 10^3/uL Absolute Nucleated RBC 0.00 x10^3/uL Nucleated RBC % 0.0 /100WBC Manual Slide Review Indicated Platelet Estimate NORMAL (130-450,000) (NORMAL) Platelet Morphology NORMAL APPEARANCE (NORMAL) RBC Morph Micro Appear 1+ ANISOCYTOSIS (NORMAL) Sodium (135-145) mmol/L Potassium (3.5-4.5) mmol/L Chloride (101-111) mmol/L Carbon Dioxide (21-32) mmol/L Anion Gap (6-13) BUN (6-20) mg/dL Creatinine (0.6-1.3) mg/dL Estimated GFR (MDRD) (>89) Glucose (74-104) mg/dL Serum Osmolality 254 L (280-301) mOsmol/kg Calcium (8.5-10.3) mg/dL Urine Osmolality 555 (.) mOsmol/kg Diagnostic Imaging Diagnostic Imaging Results: positive Final report reviewed Sepsis Event Note (H) Sepsis Criteria Sepsis Criteria: Recorded Heart Rate greater than 90 bpm and WBC count greater than 12,000 or less than 4000 Assessment/Plan Problem List (1) Alcohol withdrawal: Impression: At least 5 days since last drink Out of acute alcohol withdrawal DC Ativan Continue thiamine, MVI, folate Qualifiers: Complication of substance-induced condition: uncomplicated Qualified Code(s): F10.930 - Alcohol use, unspecified with withdrawal, uncomplicated (2) Acute hyponatremia: Impression: Likely beer Poto raji 132 today Continue salt tabs while inpatient (3) COPD (chronic obstructive pulmonary disease): Impression: Still with some crackles Symptoms much improved Completed prednisone burst Encourage pulmonary toilet Chest x-ray suspicious for pulmonary edema, echo without evidence of significant heart failure Continue home regimen of formoterol, budesonide Continue as needed Robitussin As needed albuterol Qualifiers: COPD type: unspecified COPD Qualified Code(s): J44.9 - Chronic obstructive pulmonary disease, unspecified (4) Hypokalemia: Impression: Repleted and resolved BMP in a.m. (5) Skin breakdown: Impression: Likely shear injuries along right gluteal fold from dragging herself along the floor in her drunken state Zinc, barrier cream Optimize nutrition (6) Closed fracture of toe: Impression: - X-ray from 10/18/2024 indicated acute minimally displaced fractures of the 4th digit proximal phalangeal base, 4th metatarsal neck, and 3rd digit proximal phalangeal medial base Now starting to have increased pain in her left foot Scheduled Tylenol 1 g every 8 hours Added tramadol Postop shoe on left foot when weightbearing Qualifiers: Encounter type: subsequent encounter (7) Depression: Impression: - Plan to continue home medications duloxetine and quetiapine Qualifiers: Depression Type: unspecified Qualified Code(s): F32.A - Depression, unspecified (8) Physical deconditioning: Impression: - PT recommends patient discharge to SNF/LTC as she does not appear to be safe living independently at this time - Patient has reached an understanding that she is unsafe to care for herself at home and will benefit from discharge to a intermediate facility for rehabilitation (9) Intertrigo: Impression: - Resolving left pannus intertrigo - Nystatin powder ordered to cover for mckenzie intertrigo (10) DM type 2 (diabetes mellitus, type 2): Impression: - Recent hemoglobin A1c came back normal at 5.6 - Hypoglycemia protocol in place Glucose checks were ordered during this admission for hypoglycemia, she does not need any continued diabetes management Qualifiers: Diabetes mellitus keno terminal operator insulin use: without keno terminal operator use Diabetes mellitus complication status: without complication Qualified Code(s): E11.9 - Type 2 diabetes mellitus without complications (11) Anemia: Impression: Iron deficiency anemia Ferrous sulfate 325 mg daily Qualifiers: Anemia type: unspecified type Qualified Code(s): D64.9 - Anemia, unspecified (12) UTI (urinary tract infection): Impression: She had a questionable UTI. Patient this was based off of a UA which was a dirty catch. Antibiotics were discontinued, WBC remains normal Qualifiers: Urinary tract infection type: site unspecified Hematuria presence: with hematuria Qualified Code(s): N39.0 - Urinary tract infection, site not specified; R31.9 - Hematuria, unspecified (13) Metabolic acidosis: Impression: - Resolved after aggressive IV fluids
[2024-10-24] MEDS ORDERED: ACETAMINOPHEN 500 MG TABLET PO SCH (12:00)
[2024-10-24] MEDS: ZINC OXIDE 20% OINT 30 GM TUBE TOP PRN (20:45)
[2024-10-25 06:03] LABS: BASOPHILS % (AUTO) 0.7 %; EOSINOPHILS # (AUTO) 0.3 10^3/uL (0.0-0.7); EOSINOPHILS % (AUTO) 4.9 %; HCT - HEMATOCRIT 29.5 % (37.0-47.0); HGB - HEMOGLOBIN 8.8 g/dL (12.0-16.0); LYMPHOCYTES # (AUTO) 2.6 10^3/uL (1.5-3.5); LYMPHOCYTES % (AUTO) 44.5 %; MEAN CORPUSCULAR HEMOGLOBIN 25.5 pg (27.0-31.0); MEAN CORPUSCULAR HGB CONC 29.8 g/dL (32.0-36.0); MEAN CORPUSCULAR VOLUME 85.5 fL (81.0-99.0); MEAN PLATELET VOLUME 9.2 fL (7.9-10.8); MONOCYTES # (AUTO) 0.6 10^3/uL (0.0-1.0); MONOCYTES % (AUTO) 10.2 %; NEUTROPHILS # (AUTO) 2.2 10^3/uL (1.5-6.6); NEUTROPHILS % (AUTO) 37.8 %; PLT - PLATELET COUNT 278 10^3/uL (130-450); RED BLOOD COUNT 3.45 10^6/uL (4.20-5.40); WHITE BLOOD COUNT 5.9 x10^3/uL (4.8-10.8)
[2024-10-25 06:10] LABS: SLIDE REVIEW? Indicated
[2024-10-25 06:15] LABS: CALCIUM 8.5 mg/dL (8.5-10.3); CREATININE 0.4 mg/dL (0.6-1.3); POTASSIUM 4.5 mmol/L (3.5-4.5)
[2024-10-25 06:33] LABS: PLATELET ESTIMATE, MANUAL NORMAL (130-450,000) (NORMAL); PLATELET MORPHOLOGY NORMAL APPEARANCE (NORMAL)
--- NOTE | 2024-10-25 14:55 | PROVIDER PROGRESS NOTE ---
Subjective Prog Note Date Prog Note Date: 10/25/24 Subjective Pt reports feeling: Improved Subjective: wating for SNF. Tired today. eating lunch. Wants to take a nap after lunch. Current Medications Current Medications Current Medications: Current Medications Generic Name Dose Route Start Last Admin Trade Name Freq PRN Reason Stop Dose Admin Acetaminophen 1,000 mg 10/18/24 21:59 10/25/24 14:23 Acetaminophen 500 Mg Tablet PO 1,000 mg Q8H CALIXTO Administration Albuterol 2.5 mg 10/18/24 22:15 Albuterol Neb 2.5 Mg/3 Ml INH RTQID PRN Wheezing Amlodipine Besylate 5 mg 10/19/24 09:00 10/25/24 08:40 Amlodipine 5 Mg Tablet PO 5 mg DAILY CALIXTO Administration Atorvastatin Calcium 10 mg 10/19/24 21:00 10/24/24 20:45 Atorvastatin 10 Mg Tablet PO 10 mg QPM CALIXTO Administration Budesonide 0.5 mg 10/19/24 07:00 10/25/24 08:43 Budesonide 0.5 Mg/2 Ml Neb INH 0.5 mg RTBID CALIXTO Administration Carboxymethylcellulose 1 drops 10/18/24 21:59 10/19/24 06:14 Carboxymethylcellulose Ophth Drops EACHEYE 1 drops Q4HR PRN Administration Dry Eye Duloxetine HCl 60 mg 10/19/24 12:00 10/25/24 08:40 Duloxetine 60 Mg Capsule PO 60 mg DAILY CALIXTO Administration Enoxaparin Sodium 40 mg 10/20/24 09:00 10/25/24 08:42 Enoxaparin 40 Mg/0.4 Ml Syringe SUBQ 40 mg DAILY CALIXTO Administration Ferrous Sulfate 325 mg 10/22/24 13:00 10/25/24 08:40 Ferrous Sulfate 325 Mg Tablet PO 325 mg DAILYWM CALIXTO Administration Formoterol Fumarate 20 mcg 10/19/24 07:00 10/25/24 08:43 Formoterol Fumarate Neb 20 Mcg/2 Ml INH 20 mcg RTBID CALIXTO Administration Gabapentin 1,200 mg 10/19/24 14:00 10/25/24 14:27 Gabapentin 400 Mg Capsule PO 1,200 mg TID CALIXTO Administration Guaifenesin 10 ml 10/22/24 11:17 Guaifenesin/Dextromethorphan 10 Ml Udc PO Q6HR PRN Cough Lidocaine 1 applic 10/20/24 13:00 10/25/24 14:25 Lidocaine Ointment 5% 35.44 Gm Tube TOP Not Given QID CALIXTO Lorazepam 2 mg 10/20/24 15:20 10/21/24 08:37 Lorazepam 1 Mg Tablet PO 2 mg Q1H PRN Administration CIWA > 8 Protocol Multi-Ingredient Ointment 1 applic 10/21/24 14:17 10/24/24 20:45 Zinc Oxide 20% Oint 30 Gm Tube TOP 1 applic PRN PRN Administration Skin Care Nicotine 1 patch 10/19/24 21:07 10/25/24 08:43 Nicotine 21 Mg Patch TOP 1 patch DAILY CALIXTO Administration Nystatin 1 applic 10/21/24 21:00 10/25/24 08:43 Nystatin Powder 15 Gm TOP 1 applic BID CALIXTO Administration Ondansetron HCl 4 mg 10/18/24 21:59 Ondansetron 4 Mg/2 Ml Vial IVP Q6HR PRN Nausea / Vomiting Oxycodone HCl 5 mg 10/18/24 21:59 10/25/24 12:00 Oxycodone 5 Mg Tablet PO 5 mg Q4HR PRN Administration Pain 5 to 7 Pantoprazole Sodium 40 mg 10/19/24 07:00 10/25/24 06:18 Pantoprazole 40 Mg Tablet PO 40 mg QDAC CALIXTO Administration Polyethylene Glycol 17 gm 10/20/24 09:00 10/25/24 08:40 Polyethylene Glycol 3350 17 Gm Packet PO 17 gm DAILY CALIXTO Administration Multivit/Folic Acid/Iron 1 tab 10/19/24 09:00 10/25/24 08:40 Vitamin Tablet PO 1 tab DAILY CALIXTO Administration Prochlorperazine Edisylate 10 mg 10/18/24 21:59 Prochlorperazine 10 Mg/2 Ml Vial IVP Q6HR PRN Nausea / Vomiting Quetiapine Fumarate 50 mg 10/18/24 21:59 10/24/24 20:45 Quetiapine 25 Mg Tablet PO 50 mg QPM CALIXTO Administration Sodium Chloride 10 ml 10/19/24 01:00 10/25/24 08:44 Sodium Chloride Flush 0.9% 10 Ml Syringe IVP 10 ml 0100,0900,1700 CALIXTO Administration Sodium Chloride 10 ml 10/18/24 21:59 10/20/24 06:22 Sodium Chloride Flush 0.9% 10 Ml Syringe IVP 10 ml PRN PRN Administration NEEDED PER PROVIDER ORDERS Sodium Chloride 2 gm 10/21/24 21:00 10/25/24 08:40 Sodium Chloride 1 Gm Tablet PO 2 gm BID CALIXTO Administration Thiamine HCl 100 mg 10/19/24 09:00 10/25/24 08:40 Thiamine 100 Mg Tablet PO 100 mg DAILY CALIXTO Administration Tramadol HCl 50 mg 10/24/24 11:21 Tramadol 50 Mg Tablet PO Q4HR PRN Moderate Pain (Level 4-6) Zinc Oxide 113 gm 10/21/24 14:17 10/23/24 21:13 Cod Liver Oil/Zinc Oxide 113 Gm Tube TOP 1 applic PRN PRN Administration Skin Care Objective Vital Signs/Intake & Output Reviewed Vital Signs: Yes Vital Signs: Vital Signs x48h Temp Pulse Pulse Resp BP Pulse Ox O2 Flow Rate 10/25/24 08:44 2 10/25/24 08:44 62 16 2 10/25/24 07:31 36.6 C 62 16 123/66 97 2 Intake & Output: Intake & Output 10/22/24 10/23/24 10/24/24 10/25/24 23:59 23:59 23:59 23:59 Intake Total 630 / 630 720 / 720 1717 / 1717 1080 / 1080 Output Total 800 / 800 150 / 150 800 / 800 3350 / 3350 Balance -170 / -170 570 / 570 917 / 917 -2270 / -2270 Weight (kg) 71 kg 72 kg 75.5 kg 75.5 kg Objective General Appearance: positive No acute distress and Alert Eyes Bilateral: positive Normal inspection and Other (periorbital ecchymosis) ENT: positive ENT inspection nml Neck: positive No JVD Respiratory: positive No respiratory distress and Breath sounds nml Cardiovascular: positive Regular rate & rhythm Abdomen: positive Non-tender, Nml bowel sounds and No distention Skin: positive Warm and Dry; negative Color nml (various resolving ecchymosis, visualized bilateral periorbital, bilateral hands, forehead, right elbow, left back, left foot) Extremities: positive No pedal edema Neurologic/Psychiatric: positive Oriented x3, CN's nml (2-12) (grossly intact ) and Depressed mood/affect Lab Results 10/25/24 05:28 10/25/24 05:28 Other Labs: Lab Results x24hrs 10/25/24 10/25/24 10/25/24 Range/Units 05:28 05:28 05:28 WBC (4.8-10.8) x10^3/uL RBC (4.20-5.40) 10^6/uL Hgb (12.0-16.0) g/dL Hct (37.0-47.0) % MCV (81.0-99.0) fL MCH (27.0-31.0) pg MCHC (32.0-36.0) g/dL RDW (12.0-15.0) % Plt Count (130-450) 10^3/uL MPV (7.9-10.8) fL Neut # (Auto) (1.5-6.6) 10^3/uL Lymph # (Auto) (1.5-3.5) 10^3/uL [place] # (Auto) (0.0-1.0) 10^3/uL Eos # (Auto) (0.0-0.7) 10^3/uL Baso # (Auto) (0.0-0.1) 10^3/uL Absolute Nucleated RBC x10^3/uL Nucleated RBC % /100WBC Manual Slide Review Platelet Estimate (NORMAL) Platelet Morphology (NORMAL) RBC Morph Micro Appear 1+ OVALOCYTES 1+ POLYCHROMASIA 1+ HYPOCHROMASIA (NORMAL) Sodium 134 L (135-145) mmol/L Potassium 4.5 (3.5-4.5) mmol/L Chloride 94 L (101-111) mmol/L Carbon Dioxide 37 H (21-32) mmol/L Anion Gap 3.0 L (6-13) BUN 10 (6-20) mg/dL Creatinine 0.4 L (0.6-1.3) mg/dL Estimated GFR (MDRD) 161 (>89) Glucose 93 (74-104) mg/dL Calcium 8.5 (8.5-10.3) mg/dL 10/25/24 Range/Units 05:28 WBC 5.9 (4.8-10.8) x10^3/uL RBC 3.45 L (4.20-5.40) 10^6/uL Hgb 8.8 L (12.0-16.0) g/dL Hct 29.5 L (37.0-47.0) % MCV 85.5 (81.0-99.0) fL MCH 25.5 L (27.0-31.0) pg MCHC 29.8 L (32.0-36.0) g/dL RDW 21.0 H (12.0-15.0) % Plt Count 278 (130-450) 10^3/uL MPV 9.2 (7.9-10.8) fL Neut # (Auto) 2.2 (1.5-6.6) 10^3/uL Lymph # (Auto) 2.6 (1.5-3.5) 10^3/uL [place] # (Auto) 0.6 (0.0-1.0) 10^3/uL Eos # (Auto) 0.3 (0.0-0.7) 10^3/uL Baso # (Auto) 0.0 (0.0-0.1) 10^3/uL Absolute Nucleated RBC 0.00 x10^3/uL Nucleated RBC % 0.0 /100WBC Manual Slide Review Indicated Platelet Estimate NORMAL (130-450,000) (NORMAL) Platelet Morphology NORMAL APPEARANCE (NORMAL) RBC Morph Micro Appear 1+ ANISOCYTOSIS (NORMAL) Sodium (135-145) mmol/L Potassium (3.5-4.5) mmol/L Chloride (101-111) mmol/L Carbon Dioxide (21-32) mmol/L Anion Gap (6-13) BUN (6-20) mg/dL Creatinine (0.6-1.3) mg/dL Estimated GFR (MDRD) (>89) Glucose (74-104) mg/dL Calcium (8.5-10.3) mg/dL Sepsis Event Note (H) Sepsis Criteria Sepsis Criteria: Recorded Heart Rate greater than 90 bpm and WBC count greater than 12,000 or less than 4000 Assessment/Plan Problem List (1) Alcohol withdrawal: Impression: She is alert and oriented with insight into her situation. She agrees that she should not drink alcohol again. She is medically clear for dc. Awaitng SNF auth, > 5 days since last drink Out of acute alcohol withdrawal DC Ativan Continue thiamine, MVI, folate Qualifiers: Complication of substance-induced condition: uncomplicated Qualified Code(s): F10.930 - Alcohol use, unspecified with withdrawal, uncomplicated (2) Acute hyponatremia: Impression: Likely beer Poto raji 134 today Continue salt tabs while inpatient (3) COPD (chronic obstructive pulmonary disease): Impression: lungs without adventitious sounds today. Symptoms much improved Completed prednisone burst Encourage pulmonary toilet Chest x-ray suspicious for pulmonary edema, echo without evidence of significant heart failure Continue home regimen of formoterol, budesonide Continue as needed Robitussin As needed albuterol Qualifiers: COPD type: unspecified COPD Qualified Code(s): J44.9 - Chronic obstructive pulmonary disease, unspecified (4) Hypokalemia: Impression: Repleted and resolved BMP in a.m. (5) Skin breakdown: Impression: Likely shear injuries along right gluteal fold from dragging herself along the floor in her drunken state Zinc, barrier cream Optimize nutrition (6) Closed fracture of toe: Impression: - X-ray from 10/18/2024 indicated acute minimally displaced fractures of the 4th digit proximal phalangeal base, 4th metatarsal neck, and 3rd digit proximal phalangeal medial base Now starting to have increased pain in her left foot Scheduled Tylenol 1 g every 8 hours Added tramadol Postop shoe on left foot when weightbearing Qualifiers: Encounter type: subsequent encounter (7) Depression: Impression: - Plan to continue home medications duloxetine and quetiapine Qualifiers: Depression Type: unspecified Qualified Code(s): F32.A - Depression, unspecified (8) Physical deconditioning: Impression: - PT recommends patient discharge to SNF/LTC as she does not appear to be safe living independently at this time - Patient has reached an understanding that she is unsafe to care for herself at home and will benefit from discharge to a shelter facility for rehabilitation We are awaiting authorization. She is medically clear for discharge (9) Intertrigo: Impression: - Resolving left pannus intertrigo - Nystatin powder ordered to cover for mckenzie intertrigo (10) DM type 2 (diabetes mellitus, type 2): Impression: - Recent hemoglobin A1c came back normal at 5.6 - Hypoglycemia protocol in place Glucose checks were ordered during this admission for hypoglycemia, she does not need any continued diabetes management Qualifiers: Diabetes mellitus complication status: without complication Diabetes mellitus alf insulin use: without alf use Qualified Code(s): E11.9 - Type 2 diabetes mellitus without complications (11) Anemia: Impression: Iron deficiency anemia Ferrous sulfate 325 mg daily Qualifiers: Anemia type: unspecified type Qualified Code(s): D64.9 - Anemia, unspecified (12) UTI (urinary tract infection): Impression: She had a questionable UTI. Patient this was based off of a UA which was a dirty catch. Antibiotics were discontinued, WBC remains normal Qualifiers: Hematuria presence: with hematuria Urinary tract infection type: site unspecified Qualified Code(s): N39.0 - Urinary tract infection, site not specified; R31.9 - Hematuria, unspecified (13) Metabolic acidosis: Impression: - Resolved after aggressive IV fluids I have spent 28 minutes in the care of this patient today. This includes time [id number], review and ordering of diagnostic imaging and laboratory studies..
[2024-10-25] MEDS: ALBUTEROL NEB 2.5 MG/3 ML INH PRN (20:50)
[2024-10-26 06:03] LABS: BASOPHILS # (AUTO) 0.1 10^3/uL (0.0-0.1); BASOPHILS % (AUTO) 0.8 %; EOSINOPHILS # (AUTO) 0.2 10^3/uL (0.0-0.7); EOSINOPHILS % (AUTO) 3.8 %; HCT - HEMATOCRIT 29.9 % (37.0-47.0); HGB - HEMOGLOBIN 8.9 g/dL (12.0-16.0); LYMPHOCYTES # (AUTO) 2.1 10^3/uL (1.5-3.5); LYMPHOCYTES % (AUTO) 33.2 %; MEAN CORPUSCULAR HEMOGLOBIN 25.3 pg (27.0-31.0); MEAN CORPUSCULAR HGB CONC 29.8 g/dL (32.0-36.0); MEAN CORPUSCULAR VOLUME 84.9 fL (81.0-99.0); MEAN PLATELET VOLUME 9.1 fL (7.9-10.8); MONOCYTES # (AUTO) 0.7 10^3/uL (0.0-1.0); MONOCYTES % (AUTO) 10.9 %; NEUTROPHILS # (AUTO) 3.1 10^3/uL (1.5-6.6); NEUTROPHILS % (AUTO) 49.9 %; PLT - PLATELET COUNT 330 10^3/uL (130-450); RED BLOOD COUNT 3.52 10^6/uL (4.20-5.40); RED CELL DISTRIBUTION WIDTH 21.5 % (12.0-15.0); WHITE BLOOD COUNT 6.3 x10^3/uL (4.8-10.8)
[2024-10-26 06:19] LABS: SLIDE REVIEW? Indicated
[2024-10-26 06:32] LABS: CALCIUM 8.6 mg/dL (8.5-10.3); CREATININE 0.4 mg/dL (0.6-1.3); POTASSIUM 4.5 mmol/L (3.5-4.5)
[2024-10-26 06:37] LABS: PLATELET ESTIMATE, MANUAL NORMAL (130-450,000) (NORMAL); PLATELET MORPHOLOGY NORMAL APPEARANCE (NORMAL)
[2024-10-26] MEDS: traMADol 50 MG TABLET PO PRN (07:13)
--- NOTE | 2024-10-26 21:57 | PROVIDER PROGRESS NOTE ---
Subjective Prog Note Date Prog Note Date: 10/26/24 Subjective Subjective: no complaints today Current Medications Current Medications Current Medications: Current Medications Generic Name Dose Route Start Last Admin Trade Name Freq PRN Reason Stop Dose Admin Acetaminophen 1,000 mg 10/18/24 21:59 10/26/24 21:38 Acetaminophen 500 Mg Tablet PO 1,000 mg Q8H CALIXTO Administration Albuterol 2.5 mg 10/18/24 22:15 10/26/24 21:00 Albuterol Neb 2.5 Mg/3 Ml INH 2.5 mg RTQID PRN Administration Wheezing Amlodipine Besylate 5 mg 10/19/24 09:00 10/26/24 08:40 Amlodipine 5 Mg Tablet PO 5 mg DAILY CALIXTO Administration Atorvastatin Calcium 10 mg 10/19/24 21:00 10/26/24 21:38 Atorvastatin 10 Mg Tablet PO 10 mg QPM CALIXTO Administration Budesonide 0.5 mg 10/19/24 07:00 10/26/24 21:00 Budesonide 0.5 Mg/2 Ml Neb INH 0.5 mg RTBID CALIXTO Administration Carboxymethylcellulose 1 drops 10/18/24 21:59 10/19/24 06:14 Carboxymethylcellulose Ophth Drops EACHEYE 1 drops Q4HR PRN Administration Dry Eye Duloxetine HCl 60 mg 10/19/24 12:00 10/26/24 08:40 Duloxetine 60 Mg Capsule PO 60 mg DAILY CALIXTO Administration Enoxaparin Sodium 40 mg 10/20/24 09:00 10/26/24 08:40 Enoxaparin 40 Mg/0.4 Ml Syringe SUBQ 40 mg DAILY CALIXTO Administration Ferrous Sulfate 325 mg 10/22/24 13:00 10/26/24 08:40 Ferrous Sulfate 325 Mg Tablet PO 325 mg DAILYWM CALIXTO Administration Formoterol Fumarate 20 mcg 10/19/24 07:00 10/26/24 21:00 Formoterol Fumarate Neb 20 Mcg/2 Ml INH 20 mcg RTBID CALIXTO Administration Gabapentin 1,200 mg 10/19/24 14:00 10/26/24 21:38 Gabapentin 400 Mg Capsule PO 1,200 mg TID CALIXTO Administration Guaifenesin 10 ml 10/22/24 11:17 Guaifenesin/Dextromethorphan 10 Ml Udc PO Q6HR PRN Cough Lidocaine 1 applic 10/20/24 13:00 10/26/24 21:39 Lidocaine Ointment 5% 35.44 Gm Tube TOP 1 applic QID CALIXTO Administration Lorazepam 2 mg 10/20/24 15:20 10/21/24 08:37 Lorazepam 1 Mg Tablet PO 2 mg Q1H PRN Administration CIWA > 8 Protocol Multi-Ingredient Ointment 1 applic 10/21/24 14:17 10/26/24 17:21 Zinc Oxide 20% Oint 30 Gm Tube TOP 1 applic PRN PRN Administration Skin Care Nicotine 1 patch 10/19/24 21:07 10/26/24 08:41 Nicotine 21 Mg Patch TOP 1 patch DAILY CALIXTO Administration Nystatin 1 applic 10/21/24 21:00 10/26/24 21:39 Nystatin Powder 15 Gm TOP 1 applic BID CALIXTO Administration Ondansetron HCl 4 mg 10/18/24 21:59 Ondansetron 4 Mg/2 Ml Vial IVP Q6HR PRN Nausea / Vomiting Oxycodone HCl 5 mg 10/18/24 21:59 10/26/24 21:38 Oxycodone 5 Mg Tablet PO 5 mg Q4HR PRN Administration Pain 5 to 7 Pantoprazole Sodium 40 mg 10/19/24 07:00 10/26/24 06:32 Pantoprazole 40 Mg Tablet PO 40 mg QDAC CALIXTO Administration Polyethylene Glycol 17 gm 10/20/24 09:00 10/26/24 08:40 Polyethylene Glycol 3350 17 Gm Packet PO 17 gm DAILY CALIXTO Administration Multivit/Folic Acid/Iron 1 tab 10/19/24 09:00 10/26/24 08:40 Vitamin Tablet PO 1 tab DAILY CALIXTO Administration Prochlorperazine Edisylate 10 mg 10/18/24 21:59 Prochlorperazine 10 Mg/2 Ml Vial IVP Q6HR PRN Nausea / Vomiting Quetiapine Fumarate 50 mg 10/18/24 21:59 10/26/24 21:38 Quetiapine 25 Mg Tablet PO 50 mg QPM CALIXTO Administration Sodium Chloride 10 ml 10/19/24 01:00 10/26/24 17:22 Sodium Chloride Flush 0.9% 10 Ml Syringe IVP 10 ml 0100,0900,1700 CALIXTO Administration Sodium Chloride 10 ml 10/18/24 21:59 10/20/24 06:22 Sodium Chloride Flush 0.9% 10 Ml Syringe IVP 10 ml PRN PRN Administration NEEDED PER PROVIDER ORDERS Sodium Chloride 2 gm 10/21/24 21:00 10/26/24 21:38 Sodium Chloride 1 Gm Tablet PO 2 gm BID CALIXTO Administration Thiamine HCl 100 mg 10/19/24 09:00 10/26/24 08:40 Thiamine 100 Mg Tablet PO 100 mg DAILY CALIXTO Administration Tramadol HCl 50 mg 10/24/24 11:21 10/26/24 07:13 Tramadol 50 Mg Tablet PO 50 mg Q4HR PRN Administration Moderate Pain (Level 4-6) Zinc Oxide 113 gm 10/21/24 14:17 10/23/24 21:13 Cod Liver Oil/Zinc Oxide 113 Gm Tube TOP 1 applic PRN PRN Administration Skin Care Objective Vital Signs/Intake & Output Reviewed Vital Signs: Yes Vital Signs: Vital Signs x48h Temp Pulse Pulse Resp BP Pulse Ox O2 Flow Rate 10/26/24 21:00 68 20 2 10/26/24 21:00 2 10/26/24 16:05 36.5 C 65 16 122/57 L 93 2 Intake & Output: Intake & Output 10/23/24 10/24/24 10/25/24 10/26/24 23:59 23:59 23:59 23:59 Intake Total 720 / 720 1717 / 1717 1686 / 1686 1330 / 1330 Output Total 150 / 150 800 / 800 4550 / 4550 3750 / 3750 Balance 570 / 570 917 / 917 -2864 / -2864 -2420 / -2420 Weight (kg) 72 kg 75.5 kg 75.5 kg 75.5 kg Objective General Appearance: positive No acute distress and Alert Eyes Bilateral: positive Normal inspection and Other (periorbital ecchymosis) ENT: positive ENT inspection nml Neck: positive No JVD Respiratory: positive No respiratory distress and Breath sounds nml Cardiovascular: positive Regular rate & rhythm Abdomen: positive Non-tender, Nml bowel sounds and No distention Skin: positive Warm and Dry; negative Color nml (various resolving ecchymosis, visualized bilateral periorbital, bilateral hands, forehead, right elbow, left back, left foot) Extremities: positive No pedal edema Neurologic/Psychiatric: positive Oriented x3, CN's nml (2-12) (grossly intact ) and Depressed mood/affect Lab Results 10/26/24 05:31 10/26/24 05:31 Other Labs: Lab Results x24hrs 10/26/24 10/26/24 10/26/24 Range/Units 05:31 05:31 05:31 WBC (4.8-10.8) x10^3/uL RBC (4.20-5.40) 10^6/uL Hgb (12.0-16.0) g/dL Hct (37.0-47.0) % MCV (81.0-99.0) fL MCH (27.0-31.0) pg MCHC (32.0-36.0) g/dL RDW (12.0-15.0) % Plt Count (130-450) 10^3/uL MPV (7.9-10.8) fL Neut # (Auto) (1.5-6.6) 10^3/uL Lymph # (Auto) (1.5-3.5) 10^3/uL [place] # (Auto) (0.0-1.0) 10^3/uL Eos # (Auto) (0.0-0.7) 10^3/uL Baso # (Auto) (0.0-0.1) 10^3/uL Absolute Nucleated RBC x10^3/uL Nucleated RBC % /100WBC Manual Slide Review Platelet Estimate (NORMAL) Platelet Morphology (NORMAL) RBC Morph Micro Appear 1+ POLYCHROMASIA 1+ OVALOCYTES 2+ HYPOCHROMASIA (NORMAL) Sodium 136 (135-145) mmol/L Potassium 4.5 (3.5-4.5) mmol/L Chloride 96 L (101-111) mmol/L Carbon Dioxide 37 H (21-32) mmol/L Anion Gap 3.0 L (6-13) BUN 9 (6-20) mg/dL Creatinine 0.4 L (0.6-1.3) mg/dL Estimated GFR (MDRD) 161 (>89) Glucose 92 (74-104) mg/dL Calcium 8.6 (8.5-10.3) mg/dL 10/26/24 Range/Units 05:31 WBC 6.3 (4.8-10.8) x10^3/uL RBC 3.52 L (4.20-5.40) 10^6/uL Hgb 8.9 L (12.0-16.0) g/dL Hct 29.9 L (37.0-47.0) % MCV 84.9 (81.0-99.0) fL MCH 25.3 L (27.0-31.0) pg MCHC 29.8 L (32.0-36.0) g/dL RDW 21.5 H (12.0-15.0) % Plt Count 330 (130-450) 10^3/uL MPV 9.1 (7.9-10.8) fL Neut # (Auto) 3.1 (1.5-6.6) 10^3/uL Lymph # (Auto) 2.1 (1.5-3.5) 10^3/uL [place] # (Auto) 0.7 (0.0-1.0) 10^3/uL Eos # (Auto) 0.2 (0.0-0.7) 10^3/uL Baso # (Auto) 0.1 (0.0-0.1) 10^3/uL Absolute Nucleated RBC 0.00 x10^3/uL Nucleated RBC % 0.0 /100WBC Manual Slide Review Indicated Platelet Estimate NORMAL (130-450,000) (NORMAL) Platelet Morphology NORMAL APPEARANCE (NORMAL) RBC Morph Micro Appear 1+ ANISOCYTOSIS (NORMAL) Sodium (135-145) mmol/L Potassium (3.5-4.5) mmol/L Chloride (101-111) mmol/L Carbon Dioxide (21-32) mmol/L Anion Gap (6-13) BUN (6-20) mg/dL Creatinine (0.6-1.3) mg/dL Estimated GFR (MDRD) (>89) Glucose (74-104) mg/dL Calcium (8.5-10.3) mg/dL Sepsis Event Note (H) Sepsis Criteria Sepsis Criteria: Recorded Heart Rate greater than 90 bpm and WBC count greater than 12,000 or less than 4000 Assessment/Plan Problem List (1) Alcohol withdrawal: Impression: She is alert and oriented with insight into her situation. She agrees that she should not drink alcohol again. She is medically clear for dc. Awaitng SNF auth, > 5 days since last drink Out of acute alcohol withdrawal DC Ativan Continue thiamine, MVI, folate Qualifiers: Complication of substance-induced condition: uncomplicated Qualified Code(s): F10.930 - Alcohol use, unspecified with withdrawal, uncomplicated (2) Acute hyponatremia: Impression: Likely beer Poto raji 136 today Continue salt tabs while inpatient (3) COPD (chronic obstructive pulmonary disease): Impression: lungs without adventitious sounds today. Symptoms much improved Completed prednisone burst Encourage pulmonary toilet Chest x-ray suspicious for pulmonary edema, echo without evidence of significant heart failure Continue home regimen of formoterol, budesonide Continue as needed Robitussin As needed albuterol Qualifiers: COPD type: unspecified COPD Qualified Code(s): J44.9 - Chronic obstructive pulmonary disease, unspecified (4) Hypokalemia: Impression: Repleted and resolved BMP in a.m. (5) Skin breakdown: Impression: Likely shear injuries along right gluteal fold from dragging herself along the floor in her drunken state Zinc, barrier cream Optimize nutrition (6) Closed fracture of toe: Impression: - X-ray from 10/18/2024 indicated acute minimally displaced fractures of the 4th digit proximal phalangeal base, 4th metatarsal neck, and 3rd digit proximal phalangeal medial base Now starting to have increased pain in her left foot Scheduled Tylenol 1 g every 8 hours She got oxycodone this afternoon for pain. helping some. Postop shoe on left foot when weightbearing Qualifiers: Encounter type: subsequent encounter (7) Depression: Impression: - Plan to continue home medications duloxetine and quetiapine Qualifiers: Depression Type: unspecified Qualified Code(s): F32.A - Depression, unspecified (8) Physical deconditioning: Impression: - PT recommends patient discharge to SNF/LTC as she does not appear to be safe living independently at this time - Patient has reached an understanding that she is unsafe to care for herself at home and will benefit from discharge to a correction facility for rehabilitation We are awaiting authorization. She is medically clear for discharge (9) Intertrigo: Impression: - Resolving left pannus intertrigo - Nystatin powder ordered to cover for mckenzie intertrigo (10) DM type 2 (diabetes mellitus, type 2): Impression: - Recent hemoglobin A1c came back normal at 5.6 - Hypoglycemia protocol in place Glucose checks were ordered during this admission for hypoglycemia, she does not need any continued diabetes management Qualifiers: Diabetes mellitus complication status: without complication Diabetes mellitus fpc insulin use: without fpc use Qualified Code(s): E11.9 - Type 2 diabetes mellitus without complications (11) Anemia: Impression: Iron deficiency anemia Ferrous sulfate 325 mg daily Qualifiers: Anemia type: unspecified type Qualified Code(s): D64.9 - Anemia, unspecified (12) UTI (urinary tract infection): Impression: She had a questionable UTI. Patient this was based off of a UA which was a dirty catch. Antibiotics were discontinued, WBC remains normal Qualifiers: Hematuria presence: with hematuria Urinary tract infection type: site unspecified Qualified Code(s): N39.0 - Urinary tract infection, site not specified; R31.9 - Hematuria, unspecified (13) Metabolic acidosis: Impression: - Resolved after aggressive IV fluids I have spent 26 minutes in the care of this patient today. This includes time [id number], review and ordering of diagnostic imaging and laboratory studies..
[2024-10-27 06:23] LABS: BASOPHILS # (AUTO) 0.1 10^3/uL (0.0-0.1); BASOPHILS % (AUTO) 0.9 %; EOSINOPHILS # (AUTO) 0.2 10^3/uL (0.0-0.7); EOSINOPHILS % (AUTO) 3.5 %; HGB - HEMOGLOBIN 9.2 g/dL (12.0-16.0); LYMPHOCYTES % (AUTO) 34.2 %; MEAN CORPUSCULAR HEMOGLOBIN 26.2 pg (27.0-31.0); MEAN CORPUSCULAR HGB CONC 30.7 g/dL (32.0-36.0); MEAN CORPUSCULAR VOLUME 85.5 fL (81.0-99.0); MEAN PLATELET VOLUME 9.1 fL (7.9-10.8); MONOCYTES # (AUTO) 0.6 10^3/uL (0.0-1.0); MONOCYTES % (AUTO) 10.5 %; NEUTROPHILS # (AUTO) 2.9 10^3/uL (1.5-6.6); NEUTROPHILS % (AUTO) 49.8 %; PLT - PLATELET COUNT 353 10^3/uL (130-450); RED BLOOD COUNT 3.51 10^6/uL (4.20-5.40); RED CELL DISTRIBUTION WIDTH 21.9 % (12.0-15.0); WHITE BLOOD COUNT 5.7 x10^3/uL (4.8-10.8)
[2024-10-27 06:35] LABS: SLIDE REVIEW? Indicated
[2024-10-27 06:53] LABS: PLATELET MORPHOLOGY NORMAL APPEARANCE (NORMAL)
[2024-10-27 06:54] LABS: PLATELET ESTIMATE, MANUAL NORMAL (130-450,000) (NORMAL)
[2024-10-27 07:00] LABS: CALCIUM 8.8 mg/dL (8.5-10.3); CREATININE 0.4 mg/dL (0.6-1.3); POTASSIUM 4.3 mmol/L (3.5-4.5)
[2024-10-27] MEDS: SENNA 8.6 MG TABLET PO SCH (11:02)
--- NOTE | 2024-10-27 20:02 | PROVIDER PROGRESS NOTE ---
Subjective Prog Note Date Prog Note Date: 10/27/24 Subjective Subjective: She got up to the shower today and has been ambulatory in the room. She feels better and she is starting to notice how much more clear her mentation is off alcohol. She likes the way that she feels and does not want to go back to drinking. She is starting to feel that she has some purpose in life, and wants to be alert and aware of what she might accomplish with the time she has left on this earth. not able to sleep more than about 6 hours at night. has struggled with this for years, amitriptylline most effective many years ago Current Medications Current Medications Current Medications: Current Medications Generic Name Dose Route Start Last Admin Trade Name Freq PRN Reason Stop Dose Admin Acetaminophen 1,000 mg 10/18/24 21:59 10/27/24 14:12 Acetaminophen 500 Mg Tablet PO 1,000 mg Q8H CALIXTO Administration Albuterol 2.5 mg 10/18/24 22:15 10/26/24 21:00 Albuterol Neb 2.5 Mg/3 Ml INH 2.5 mg RTQID PRN Administration Wheezing Amlodipine Besylate 5 mg 10/19/24 09:00 10/27/24 09:15 Amlodipine 5 Mg Tablet PO 5 mg DAILY CALIXTO Administration Atorvastatin Calcium 10 mg 10/19/24 21:00 10/26/24 21:38 Atorvastatin 10 Mg Tablet PO 10 mg QPM CALIXTO Administration Budesonide 0.5 mg 10/19/24 07:00 10/27/24 07:45 Budesonide 0.5 Mg/2 Ml Neb INH 0.5 mg RTBID CALIXTO Administration Carboxymethylcellulose 1 drops 10/18/24 21:59 10/19/24 06:14 Carboxymethylcellulose Ophth Drops EACHEYE 1 drops Q4HR PRN Administration Dry Eye Duloxetine HCl 60 mg 10/19/24 12:00 10/27/24 09:11 Duloxetine 60 Mg Capsule PO 60 mg DAILY CALIXTO Administration Enoxaparin Sodium 40 mg 10/20/24 09:00 10/27/24 09:11 Enoxaparin 40 Mg/0.4 Ml Syringe SUBQ 40 mg DAILY CALIXTO Administration Ferrous Sulfate 325 mg 10/22/24 13:00 10/27/24 09:14 Ferrous Sulfate 325 Mg Tablet PO 325 mg DAILYWM CALIXTO Administration Formoterol Fumarate 20 mcg 10/19/24 07:00 10/27/24 07:45 Formoterol Fumarate Neb 20 Mcg/2 Ml INH 20 mcg RTBID CALIXTO Administration Gabapentin 1,200 mg 10/19/24 14:00 10/27/24 14:11 Gabapentin 400 Mg Capsule PO 1,200 mg TID CALIXTO Administration Guaifenesin 10 ml 10/22/24 11:17 Guaifenesin/Dextromethorphan 10 Ml Udc PO Q6HR PRN Cough Lidocaine 1 applic 10/20/24 13:00 10/27/24 16:26 Lidocaine Ointment 5% 35.44 Gm Tube TOP Not Given QID CALIXTO Lorazepam 2 mg 10/20/24 15:20 10/21/24 08:37 Lorazepam 1 Mg Tablet PO 2 mg Q1H PRN Administration CIWA > 8 Protocol Multi-Ingredient Ointment 1 applic 10/21/24 14:17 10/26/24 17:21 Zinc Oxide 20% Oint 30 Gm Tube TOP 1 applic PRN PRN Administration Skin Care Nicotine 1 patch 10/19/24 21:07 10/27/24 09:15 Nicotine 21 Mg Patch TOP 1 patch DAILY CALIXTO Administration Nystatin 1 applic 10/21/24 21:00 10/27/24 09:14 Nystatin Powder 15 Gm TOP 1 applic BID CALIXTO Administration Ondansetron HCl 4 mg 10/18/24 21:59 Ondansetron 4 Mg/2 Ml Vial IVP Q6HR PRN Nausea / Vomiting Oxycodone HCl 5 mg 10/18/24 21:59 10/27/24 14:11 Oxycodone 5 Mg Tablet PO 5 mg Q4HR PRN Administration Pain 5 to 7 Pantoprazole Sodium 40 mg 10/19/24 07:00 10/27/24 06:07 Pantoprazole 40 Mg Tablet PO 40 mg QDAC CALIXTO Administration Polyethylene Glycol 17 gm 10/20/24 09:00 10/27/24 11:03 Polyethylene Glycol 3350 17 Gm Packet PO 17 gm DAILY CALIXTO Administration Multivit/Folic Acid/Iron 1 tab 10/19/24 09:00 10/27/24 09:13 Vitamin Tablet PO 1 tab DAILY CALIXTO Administration Prochlorperazine Edisylate 10 mg 10/18/24 21:59 Prochlorperazine 10 Mg/2 Ml Vial IVP Q6HR PRN Nausea / Vomiting Quetiapine Fumarate 50 mg 10/18/24 21:59 10/26/24 21:38 Quetiapine 25 Mg Tablet PO 50 mg QPM CALIXTO Administration Senna 8.6 - 17.2 mg 10/27/24 10:00 10/27/24 11:02 Senna 8.6 Mg Tablet PO 8.6 mg DAILY CALIXTO Administration Sodium Chloride 10 ml 10/19/24 01:00 10/27/24 16:26 Sodium Chloride Flush 0.9% 10 Ml Syringe IVP Not Given 0100,0900,1700 CALIXOT Sodium Chloride 10 ml 10/18/24 21:59 10/20/24 06:22 Sodium Chloride Flush 0.9% 10 Ml Syringe IVP 10 ml PRN PRN Administration NEEDED PER PROVIDER ORDERS Sodium Chloride 2 gm 10/21/24 21:00 10/27/24 09:13 Sodium Chloride 1 Gm Tablet PO 2 gm BID CALIXTO Administration Thiamine HCl 100 mg 10/19/24 09:00 10/27/24 09:16 Thiamine 100 Mg Tablet PO 100 mg DAILY CALIXTO Administration Tramadol HCl 50 mg 10/24/24 11:21 10/26/24 07:13 Tramadol 50 Mg Tablet PO 50 mg Q4HR PRN Administration Moderate Pain (Level 4-6) Zinc Oxide 113 gm 10/21/24 14:17 10/23/24 21:13 Cod Liver Oil/Zinc Oxide 113 Gm Tube TOP 1 applic PRN PRN Administration Skin Care Objective Vital Signs/Intake & Output Reviewed Vital Signs: Yes Vital Signs: Vital Signs x48h Temp Pulse Resp BP Pulse Ox O2 Flow Rate 10/27/24 16:33 36.6 C 75 20 140/65 H 94 2 10/27/24 16:30 86 L 10/27/24 16:26 36.8 C 93 18 121/68 92 Intake & Output: Intake & Output 10/24/24 10/25/24 10/26/24 10/27/24 23:59 23:59 23:59 23:59 Intake Total 1717 / 1717 1686 / 1686 1730 / 1730 1000 / 1000 Output Total 800 / 800 4550 / 4550 3750 / 3750 4200 / 4200 Balance 917 / 917 -2864 / -2864 -2019 / -2019 -3200 / -3200 Weight (kg) 75.5 kg 75.5 kg 75.5 kg 73 kg Objective General Appearance: positive No acute distress and Alert Eyes Bilateral: positive Normal inspection and Other (periorbital ecchymosis) ENT: positive ENT inspection nml Neck: positive No JVD Respiratory: positive No respiratory distress and Breath sounds nml Cardiovascular: positive Regular rate & rhythm Abdomen: positive Non-tender, Nml bowel sounds and No distention Skin: positive Warm and Dry; negative Color nml (various resolving ecchymosis, visualized bilateral periorbital, bilateral hands, forehead, right elbow, left back, left foot) Extremities: positive No pedal edema Neurologic/Psychiatric: positive Oriented x3, CN's nml (2-12) (grossly intact ) and Other (depression is lifting slightly) Lab Results 10/27/24 05:32 10/27/24 05:32 Other Labs: Lab Results x24hrs 10/27/24 10/27/24 10/27/24 Range/Units 05:32 05:32 05:32 WBC 5.7 (4.8-10.8) x10^3/uL RBC 3.51 L (4.20-5.40) 10^6/uL Hgb 9.2 L (12.0-16.0) g/dL Hct 30.0 L (37.0-47.0) % MCV 85.5 (81.0-99.0) fL MCH 26.2 L (27.0-31.0) pg MCHC 30.7 L (32.0-36.0) g/dL RDW 21.9 H (12.0-15.0) % Plt Count 353 (130-450) 10^3/uL MPV 9.1 (7.9-10.8) fL Neut # (Auto) 2.9 (1.5-6.6) 10^3/uL Lymph # (Auto) 2.0 (1.5-3.5) 10^3/uL [place] # (Auto) 0.6 (0.0-1.0) 10^3/uL Eos # (Auto) 0.2 (0.0-0.7) 10^3/uL Baso # (Auto) 0.1 (0.0-0.1) 10^3/uL Absolute Nucleated RBC 0.00 x10^3/uL Nucleated RBC % 0.0 /100WBC Manual Slide Review Indicated Platelet Estimate NORMAL (130-450,000) (NORMAL) Platelet Morphology NORMAL APPEARANCE (NORMAL) RBC Morph Micro Appear 1+ OVALOCYTES 1+ HYPOCHROMASIA 1+ ANISOCYTOSIS (NORMAL) Sodium 135 (135-145) mmol/L Potassium 4.3 (3.5-4.5) mmol/L Chloride 97 L (101-111) mmol/L Carbon Dioxide 35 H (21-32) mmol/L Anion Gap 3.0 L (6-13) BUN 9 (6-20) mg/dL Creatinine 0.4 L (0.6-1.3) mg/dL Estimated GFR (MDRD) 161 (>89) Glucose 97 (74-104) mg/dL Calcium 8.8 (8.5-10.3) mg/dL Sepsis Event Note (H) Sepsis Criteria Sepsis Criteria: Recorded Heart Rate greater than 90 bpm and WBC count greater than 12,000 or less than 4000 Assessment/Plan Problem List (1) Alcohol withdrawal: Impression: She is alert and oriented with insight into her situation. She agrees that she should not drink alcohol again. She is medically clear for dc. Awaitng SNF auth, > 5 days since last drink Out of acute alcohol withdrawal DC Ativan Continue thiamine, MVI, folate Qualifiers: Complication of substance-induced condition: uncomplicated Qualified Code(s): F10.930 - Alcohol use, unspecified with withdrawal, uncomplicated (2) Acute hyponatremia: Impression: Likely beer [place] 135 today Continue salt tabs while inpatient- I am decreasing these to once daily (3) COPD (chronic obstructive pulmonary disease): Impression: lungs without adventitious sounds today. Symptoms much improved Completed prednisone burst Encourage pulmonary toilet Chest x-ray suspicious for pulmonary edema, echo without evidence of significant heart failure Continue home regimen of formoterol, budesonide Continue as needed Robitussin As needed albuterol Qualifiers: COPD type: unspecified COPD Qualified Code(s): J44.9 - Chronic obstructive pulmonary disease, unspecified (4) Hypokalemia: Impression: Repleted and resolved BMP in a.m. (5) Skin breakdown: Impression: Likely shear injuries along right gluteal fold from dragging herself along the floor in her drunken state Zinc, barrier cream Optimize nutrition (6) Closed fracture of toe: Impression: - X-ray from 10/18/2024 indicated acute minimally displaced fractures of the 4th digit proximal phalangeal base, 4th metatarsal neck, and 3rd digit proximal phalangeal medial base Now starting to have increased pain in her left foot Scheduled Tylenol 1 g every 8 hours oxycodone for pain. helping some. Postop shoe on left foot when weightbearing Qualifiers: Encounter type: subsequent encounter (7) Depression: Impression: - Plan to continue home medications duloxetine and quetiapine Qualifiers: Depression Type: unspecified Qualified Code(s): F32.A - Depression, unspecified (8) Physical deconditioning: Impression: - PT recommends patient discharge to SNF/LTC as she does not appear to be safe living independently at this time - Patient has reached an understanding that she is unsafe to care for herself at home and will benefit from discharge to a intermediate facility for rehabilitation We are awaiting authorization. She is medically clear for discharge (9) Intertrigo: Impression: - Resolving left pannus intertrigo - Nystatin powder ordered to cover for mckenzie intertrigo (10) DM type 2 (diabetes mellitus, type 2): Impression: - Recent hemoglobin A1c came back normal at 5.6 - Hypoglycemia protocol in place Glucose checks were ordered during this admission for hypoglycemia, she does not need any continued diabetes management Qualifiers: Diabetes mellitus complication status: without complication Diabetes mellitus terminal system operator insulin use: without detention use Qualified Code(s): E11.9 - Type 2 diabetes mellitus without complications (11) Anemia: Impression: Iron deficiency anemia Ferrous sulfate 325 mg daily Qualifiers: Anemia type: unspecified type Qualified Code(s): D64.9 - Anemia, unspecified (12) UTI (urinary tract infection): Impression: She had a questionable UTI. Patient this was based off of a UA which was a dirty catch. Antibiotics were discontinued, WBC remains normal Qualifiers: Hematuria presence: with hematuria Urinary tract infection type: site unspecified Qualified Code(s): N39.0 - Urinary tract infection, site not specified; R31.9 - Hematuria, unspecified (13) Metabolic acidosis: Impression: - Resolved after aggressive IV fluids I have spent 25 minutes in the care of this patient today. This includes time [id number], review and ordering of diagnostic imaging and laboratory studies..
[2024-10-28 06:00] LABS: BASOPHILS # (AUTO) 0.1 10^3/uL (0.0-0.1); BASOPHILS % (AUTO) 0.8 %; EOSINOPHILS # (AUTO) 0.2 10^3/uL (0.0-0.7); EOSINOPHILS % (AUTO) 3.3 %; HCT - HEMATOCRIT 30.9 % (37.0-47.0); HGB - HEMOGLOBIN 9.3 g/dL (12.0-16.0); LYMPHOCYTES % (AUTO) 31.5 %; MEAN CORPUSCULAR HEMOGLOBIN 25.8 pg (27.0-31.0); MEAN CORPUSCULAR HGB CONC 30.1 g/dL (32.0-36.0); MEAN CORPUSCULAR VOLUME 85.8 fL (81.0-99.0); MEAN PLATELET VOLUME 8.9 fL (7.9-10.8); MONOCYTES # (AUTO) 0.5 10^3/uL (0.0-1.0); MONOCYTES % (AUTO) 7.9 %; NEUTROPHILS # (AUTO) 3.5 10^3/uL (1.5-6.6); NEUTROPHILS % (AUTO) 55.5 %; PLT - PLATELET COUNT 392 10^3/uL (130-450); RED CELL DISTRIBUTION WIDTH 22.2 % (12.0-15.0); WHITE BLOOD COUNT 6.3 x10^3/uL (4.8-10.8)
[2024-10-28 06:11] LABS: SLIDE REVIEW? Indicated
[2024-10-28 06:14] LABS: CALCIUM 8.9 mg/dL (8.5-10.3); CREATININE 0.4 mg/dL (0.6-1.3); POTASSIUM 4.1 mmol/L (3.5-4.5)
[2024-10-28 06:34] LABS: PLATELET ESTIMATE, MANUAL NORMAL (130-450,000) (NORMAL); PLATELET MORPHOLOGY NORMAL APPEARANCE (NORMAL)
[2024-10-28 06:35] LABS: WBC MORPHOLOGY (MULTIPLE) NORMAL APPEARANCE (NORMAL)
[2024-10-28] MEDS: SODIUM CHLORIDE 1 GM TABLET PO SCH (08:12)
--- NOTE | 2024-10-28 19:41 | PROVIDER PROGRESS NOTE ---
Subjective Prog Note Date Prog Note Date: 10/28/24 Subjective Subjective: has been more painful today. wants something other than tylenol and oxycodone. She has been able to take NSAIDS in the past. Current Medications Current Medications Current Medications: Current Medications Generic Name Dose Route Start Last Admin Trade Name Freq PRN Reason Stop Dose Admin Acetaminophen 1,000 mg 10/18/24 21:59 10/28/24 14:47 Acetaminophen 500 Mg Tablet PO 1,000 mg Q8H CALIXTO Administration Albuterol 2.5 mg 10/18/24 22:15 10/26/24 21:00 Albuterol Neb 2.5 Mg/3 Ml INH 2.5 mg RTQID PRN Administration Wheezing Amlodipine Besylate 5 mg 10/19/24 09:00 10/28/24 08:12 Amlodipine 5 Mg Tablet PO 5 mg DAILY CALIXTO Administration Atorvastatin Calcium 10 mg 10/19/24 21:00 10/27/24 20:35 Atorvastatin 10 Mg Tablet PO 10 mg QPM CALIXTO Administration Budesonide 0.5 mg 10/19/24 07:00 10/28/24 06:13 Budesonide 0.5 Mg/2 Ml Neb INH 0.5 mg RTBID CALIXTO Administration Carboxymethylcellulose 1 drops 10/18/24 21:59 10/19/24 06:14 Carboxymethylcellulose Ophth Drops EACHEYE 1 drops Q4HR PRN Administration Dry Eye Duloxetine HCl 60 mg 10/19/24 12:00 10/28/24 08:12 Duloxetine 60 Mg Capsule PO 60 mg DAILY CALIXTO Administration Enoxaparin Sodium 40 mg 10/20/24 09:00 10/27/24 09:11 Enoxaparin 40 Mg/0.4 Ml Syringe SUBQ 40 mg DAILY CALIXTO Administration Ferrous Sulfate 325 mg 10/22/24 13:00 10/28/24 08:12 Ferrous Sulfate 325 Mg Tablet PO 325 mg DAILYWM CALIXTO Administration Formoterol Fumarate 20 mcg 10/19/24 07:00 10/28/24 06:13 Formoterol Fumarate Neb 20 Mcg/2 Ml INH 20 mcg RTBID CALIXTO Administration Gabapentin 1,200 mg 10/19/24 14:00 10/28/24 14:48 Gabapentin 400 Mg Capsule PO 1,200 mg TID CALIXTO Administration Guaifenesin 10 ml 10/22/24 11:17 Guaifenesin/Dextromethorphan 10 Ml Udc PO Q6HR PRN Cough Lidocaine 1 applic 10/20/24 13:00 10/28/24 14:39 Lidocaine Ointment 5% 35.44 Gm Tube TOP 1 applic QID CALIXTO Administration Lorazepam 2 mg 10/20/24 15:20 10/21/24 08:37 Lorazepam 1 Mg Tablet PO 2 mg Q1H PRN Administration CIWA > 8 Protocol Multi-Ingredient Ointment 1 applic 10/21/24 14:17 10/26/24 17:21 Zinc Oxide 20% Oint 30 Gm Tube TOP 1 applic PRN PRN Administration Skin Care Nicotine 1 patch 10/19/24 21:07 10/28/24 08:11 Nicotine 21 Mg Patch TOP 1 patch DAILY CALIXTO Administration Nystatin 1 applic 10/21/24 21:00 10/28/24 08:14 Nystatin Powder 15 Gm TOP 1 applic BID CALIXTO Administration Ondansetron HCl 4 mg 10/18/24 21:59 Ondansetron 4 Mg/2 Ml Vial IVP Q6HR PRN Nausea / Vomiting Oxycodone HCl 5 mg 10/18/24 21:59 10/28/24 14:48 Oxycodone 5 Mg Tablet PO 5 mg Q4HR PRN Administration Pain 5 to 7 Pantoprazole Sodium 40 mg 10/19/24 07:00 10/28/24 05:41 Pantoprazole 40 Mg Tablet PO 40 mg QDAC CALIXTO Administration Polyethylene Glycol 17 gm 10/20/24 09:00 10/28/24 08:11 Polyethylene Glycol 3350 17 Gm Packet PO 17 gm DAILY CALIXTO Administration Multivit/Folic Acid/Iron 1 tab 10/19/24 09:00 10/28/24 08:12 Vitamin Tablet PO 1 tab DAILY CALIXTO Administration Prochlorperazine Edisylate 10 mg 10/18/24 21:59 Prochlorperazine 10 Mg/2 Ml Vial IVP Q6HR PRN Nausea / Vomiting Quetiapine Fumarate 50 mg 10/18/24 21:59 10/27/24 20:35 Quetiapine 25 Mg Tablet PO 50 mg QPM CALIXTO Administration Senna 8.6 - 17.2 mg 10/27/24 10:00 10/28/24 08:12 Senna 8.6 Mg Tablet PO 8.6 mg DAILY CALIXTO Administration Sodium Chloride 2 gm 10/28/24 09:00 10/28/24 08:12 Sodium Chloride 1 Gm Tablet PO 2 gm DAILY CALIXTO Administration Thiamine HCl 100 mg 10/19/24 09:00 10/28/24 08:39 Thiamine 100 Mg Tablet PO 100 mg DAILY CALIXTO Administration Tramadol HCl 50 mg 10/24/24 11:21 10/26/24 07:13 Tramadol 50 Mg Tablet PO 50 mg Q4HR PRN Administration Moderate Pain (Level 4-6) Zinc Oxide 113 gm 10/21/24 14:17 10/23/24 21:13 Cod Liver Oil/Zinc Oxide 113 Gm Tube TOP 1 applic PRN PRN Administration Skin Care Objective Vital Signs/Intake & Output Reviewed Vital Signs: Yes Vital Signs: Vital Signs x48h Temp Pulse Resp BP Pulse Ox O2 Flow Rate 10/28/24 16:00 85 20 143/76 H 92 10/28/24 14:00 36.7 C 72 18 118/71 96 2 Intake & Output: Intake & Output 10/25/24 10/26/24 10/27/24 10/28/24 23:59 23:59 23:59 23:59 Intake Total 1686 / 1686 1730 / 1730 1000 / 1000 730 / 730 Output Total 4550 / 4550 3750 / 3750 4200 / 4200 900 / 900 Balance -2864 / -2864 -2020 / -2020 -3200 / -3200 -170 / -170 Weight (kg) 75.5 kg 75.5 kg 73 kg 71 kg Objective General Appearance: positive No acute distress and Alert Eyes Bilateral: positive Normal inspection and Other (periorbital ecchymosis) ENT: positive ENT inspection nml Neck: positive No JVD Respiratory: positive No respiratory distress and Breath sounds nml Cardiovascular: positive Regular rate & rhythm Abdomen: positive Non-tender, Nml bowel sounds and No distention Skin: positive Warm and Dry; negative Color nml (various resolving ecchymosis, visualized bilateral periorbital, bilateral hands, forehead, right elbow, left back, left foot) Extremities: positive No pedal edema Neurologic/Psychiatric: positive Oriented x3, CN's nml (2-12) (grossly intact ) and Other (depression is lifting slightly) Lab Results 10/28/24 05:21 10/28/24 05:21 Other Labs: Lab Results x24hrs 10/28/24 10/28/24 10/28/24 Range/Units 05:21 05:21 05:21 WBC (4.8-10.8) x10^3/uL RBC (4.20-5.40) 10^6/uL Hgb (12.0-16.0) g/dL Hct (37.0-47.0) % MCV (81.0-99.0) fL MCH (27.0-31.0) pg MCHC (32.0-36.0) g/dL RDW (12.0-15.0) % Plt Count (130-450) 10^3/uL MPV (7.9-10.8) fL Neut # (Auto) (1.5-6.6) 10^3/uL Lymph # (Auto) (1.5-3.5) 10^3/uL [place] # (Auto) (0.0-1.0) 10^3/uL Eos # (Auto) (0.0-0.7) 10^3/uL Baso # (Auto) (0.0-0.1) 10^3/uL Absolute Nucleated RBC x10^3/uL Nucleated RBC % /100WBC Manual Slide Review WBC Morphology (NORMAL) Platelet Estimate (NORMAL) Platelet Morphology (NORMAL) RBC Morph Micro Appear 1+ POLYCHROMASIA 1+ OVALOCYTES 1+ HYPOCHROMASIA (NORMAL) Sodium 134 L (135-145) mmol/L Potassium 4.1 (3.5-4.5) mmol/L Chloride 98 L (101-111) mmol/L Carbon Dioxide 32 (21-32) mmol/L Anion Gap 4.0 L (6-13) BUN 9 (6-20) mg/dL Creatinine 0.4 L (0.6-1.3) mg/dL Estimated GFR (MDRD) 161 (>89) Glucose 97 (74-104) mg/dL Calcium 8.9 (8.5-10.3) mg/dL 10/28/24 Range/Units 05:21 WBC 6.3 (4.8-10.8) x10^3/uL RBC 3.60 L (4.20-5.40) 10^6/uL Hgb 9.3 L (12.0-16.0) g/dL Hct 30.9 L (37.0-47.0) % MCV 85.8 (81.0-99.0) fL MCH 25.8 L (27.0-31.0) pg MCHC 30.1 L (32.0-36.0) g/dL RDW 22.2 H (12.0-15.0) % Plt Count 392 (130-450) 10^3/uL MPV 8.9 (7.9-10.8) fL Neut # (Auto) 3.5 (1.5-6.6) 10^3/uL Lymph # (Auto) 2.0 (1.5-3.5) 10^3/uL [place] # (Auto) 0.5 (0.0-1.0) 10^3/uL Eos # (Auto) 0.2 (0.0-0.7) 10^3/uL Baso # (Auto) 0.1 (0.0-0.1) 10^3/uL Absolute Nucleated RBC 0.00 x10^3/uL Nucleated RBC % 0.0 /100WBC Manual Slide Review Indicated WBC Morphology NORMAL APPEARANCE (NORMAL) Platelet Estimate NORMAL (130-450,000) (NORMAL) Platelet Morphology NORMAL APPEARANCE (NORMAL) RBC Morph Micro Appear 2+ ANISOCYTOSIS (NORMAL) Sodium (135-145) mmol/L Potassium (3.5-4.5) mmol/L Chloride (101-111) mmol/L Carbon Dioxide (21-32) mmol/L Anion Gap (6-13) BUN (6-20) mg/dL Creatinine (0.6-1.3) mg/dL Estimated GFR (MDRD) (>89) Glucose (74-104) mg/dL Calcium (8.5-10.3) mg/dL Sepsis Event Note (H) Sepsis Criteria Sepsis Criteria: Recorded Heart Rate greater than 90 bpm and WBC count greater than 12,000 or less than 4000 Assessment/Plan Problem List (1) Alcohol withdrawal: Impression: She is alert and oriented with insight into her situation. She agrees that she should not drink alcohol again. She is medically clear for dc. Awaitng SNF auth, > 5 days since last drink Out of acute alcohol withdrawal DC Ativan Continue thiamine, MVI, folate Qualifiers: Complication of substance-induced condition: uncomplicated Qualified Code(s): F10.930 - Alcohol use, unspecified with withdrawal, uncomplicated (2) Acute hyponatremia: Impression: Likely beer Poto raji 134 today- lab holiday tomorrow Continue salt tabs while inpatient- I am decreasing these to once daily (3) COPD (chronic obstructive pulmonary disease): Impression: lungs without adventitious sounds today. Symptoms much improved Completed prednisone burst Encourage pulmonary toilet Chest x-ray suspicious for pulmonary edema, echo without evidence of significant heart failure Continue home regimen of formoterol, budesonide Continue as needed Robitussin As needed albuterol Qualifiers: COPD type: unspecified COPD Qualified Code(s): J44.9 - Chronic obstructive pulmonary disease, unspecified (4) Hypokalemia: Impression: Repleted and resolved lab holiday tomorrow (5) Skin breakdown: Impression: Likely shear injuries along right gluteal fold from dragging herself along the floor in her drunken state Zinc, barrier cream Optimize nutrition (6) Closed fracture of toe: Impression: - X-ray from 10/18/2024 indicated acute minimally displaced fractures of the 4th digit proximal phalangeal base, 4th metatarsal neck, and 3rd digit proximal phalangeal medial base Now starting to have increased pain in her left foot Scheduled Tylenol 1 g every 8 hours oxycodone for pain. helping some. Adding ibuprofen Postop shoe on left foot when weightbearing Qualifiers: Encounter type: subsequent encounter (7) Depression: Impression: - Plan to continue home medications duloxetine and quetiapine Qualifiers: Depression Type: unspecified Qualified Code(s): F32.A - Depression, unspecified (8) Physical deconditioning: Impression: - PT recommends patient discharge to SNF/LTC as she does not appear to be safe living independently at this time - Patient has reached an understanding that she is unsafe to care for herself at home and will benefit from discharge to a long term facility for rehabilitation We are awaiting authorization. She is medically clear for discharge (9) Intertrigo: Impression: - Resolving left pannus intertrigo - Nystatin powder ordered to cover for mckenzie intertrigo (10) DM type 2 (diabetes mellitus, type 2): Impression: - Recent hemoglobin A1c came back normal at 5.6 - Hypoglycemia protocol in place Glucose checks were ordered during this admission for hypoglycemia, she does not need any continued diabetes management Qualifiers: Diabetes mellitus complication status: without complication Diabetes mellitus echo technologist insulin use: without fdc use Qualified Code(s): E11.9 - Type 2 diabetes mellitus without complications (11) Anemia: Impression: Iron deficiency anemia Ferrous sulfate 325 mg daily Qualifiers: Anemia type: unspecified type Qualified Code(s): D64.9 - Anemia, unspecified (12) UTI (urinary tract infection): Impression: She had a questionable UTI. Patient this was based off of a UA which was a dirty catch. Antibiotics were discontinued, WBC remains normal Qualifiers: Hematuria presence: with hematuria Urinary tract infection type: site unspecified Qualified Code(s): N39.0 - Urinary tract infection, site not specified; R31.9 - Hematuria, unspecified (13) Metabolic acidosis: Impression: - Resolved after aggressive IV fluids I have spent 28 minutes in the care of this patient today. This includes time [id number], review and ordering of diagnostic imaging and laboratory studies..
[2024-10-28] MEDS: IBUPROFEN 600 MG TABLET PO PRN (21:29)
--- NOTE | 2024-10-29 20:05 | PROVIDER PROGRESS NOTE ---
Subjective Prog Note Date Prog Note Date: 10/29/24 Subjective Subjective: able to work with PT today. will see OT tomorrow. She did well and is feeling more steady on her feet; Current Medications Current Medications Current Medications: Current Medications Generic Name Dose Route Start Last Admin Trade Name Freq PRN Reason Stop Dose Admin Acetaminophen 1,000 mg 10/18/24 21:59 10/29/24 13:04 Acetaminophen 500 Mg Tablet PO 1,000 mg Q8H CALIXTO Administration Albuterol 2.5 mg 10/18/24 22:15 10/26/24 21:00 Albuterol Neb 2.5 Mg/3 Ml INH 2.5 mg RTQID PRN Administration Wheezing Amlodipine Besylate 5 mg 10/19/24 09:00 10/29/24 08:17 Amlodipine 5 Mg Tablet PO 5 mg DAILY CALIXTO Administration Atorvastatin Calcium 10 mg 10/19/24 21:00 10/28/24 21:30 Atorvastatin 10 Mg Tablet PO 10 mg QPM CALIXTO Administration Budesonide 0.5 mg 10/19/24 07:00 10/29/24 08:44 Budesonide 0.5 Mg/2 Ml Neb INH 0.5 mg RTBID CALIXTO Administration Carboxymethylcellulose 1 drops 10/18/24 21:59 10/19/24 06:14 Carboxymethylcellulose Ophth Drops EACHEYE 1 drops Q4HR PRN Administration Dry Eye Duloxetine HCl 60 mg 10/19/24 12:00 10/29/24 08:17 Duloxetine 60 Mg Capsule PO 60 mg DAILY CALIXTO Administration Enoxaparin Sodium 40 mg 10/20/24 09:00 10/29/24 08:26 Enoxaparin 40 Mg/0.4 Ml Syringe SUBQ 40 mg DAILY CALIXTO Administration Ferrous Sulfate 325 mg 10/22/24 13:00 10/29/24 08:16 Ferrous Sulfate 325 Mg Tablet PO 325 mg DAILYWM CALIXTO Administration Formoterol Fumarate 20 mcg 10/19/24 07:00 10/29/24 08:44 Formoterol Fumarate Neb 20 Mcg/2 Ml INH 20 mcg RTBID CALIXTO Administration Gabapentin 1,200 mg 10/19/24 14:00 10/29/24 13:04 Gabapentin 400 Mg Capsule PO 1,200 mg TID CALIXTO Administration Guaifenesin 10 ml 10/22/24 11:17 Guaifenesin/Dextromethorphan 10 Ml Udc PO Q6HR PRN Cough Ibuprofen 600 mg 10/28/24 19:39 10/28/24 21:29 Ibuprofen 600 Mg Tablet PO 600 mg Q6HR PRN Administration Moderate Pain (Level 4-6) Lidocaine 1 applic 10/20/24 13:00 10/29/24 19:23 Lidocaine Ointment 5% 35.44 Gm Tube TOP Not Given QID CALIXTO Lorazepam 2 mg 10/20/24 15:20 10/21/24 08:37 Lorazepam 1 Mg Tablet PO 2 mg Q1H PRN Administration CIWA > 8 Protocol Multi-Ingredient Ointment 1 applic 10/21/24 14:17 10/26/24 17:21 Zinc Oxide 20% Oint 30 Gm Tube TOP 1 applic PRN PRN Administration Skin Care Nicotine 1 patch 10/19/24 21:07 10/29/24 08:15 Nicotine 21 Mg Patch TOP 1 patch DAILY CALIXTO Administration Nystatin 1 applic 10/21/24 21:00 10/29/24 08:15 Nystatin Powder 15 Gm TOP 1 applic BID CALIXTO Administration Ondansetron HCl 4 mg 10/18/24 21:59 Ondansetron 4 Mg/2 Ml Vial IVP Q6HR PRN Nausea / Vomiting Oxycodone HCl 5 mg 10/18/24 21:59 10/29/24 13:08 Oxycodone 5 Mg Tablet PO 5 mg Q4HR PRN Administration Pain 5 to 7 Pantoprazole Sodium 40 mg 10/19/24 07:00 10/29/24 06:00 Pantoprazole 40 Mg Tablet PO 40 mg QDAC CALIXTO Administration Polyethylene Glycol 17 gm 10/20/24 09:00 10/29/24 08:15 Polyethylene Glycol 3350 17 Gm Packet PO 17 gm DAILY CALIXTO Administration Multivit/Folic Acid/Iron 1 tab 10/19/24 09:00 10/29/24 08:17 Vitamin Tablet PO 1 tab DAILY CALIXTO Administration Prochlorperazine Edisylate 10 mg 10/18/24 21:59 Prochlorperazine 10 Mg/2 Ml Vial IVP Q6HR PRN Nausea / Vomiting Quetiapine Fumarate 50 mg 10/18/24 21:59 10/28/24 21:29 Quetiapine 25 Mg Tablet PO 50 mg QPM CALIXTO Administration Senna 8.6 - 17.2 mg 10/27/24 10:00 10/29/24 08:16 Senna 8.6 Mg Tablet PO 8.6 mg DAILY CALIXTO Administration Sodium Chloride 2 gm 10/28/24 09:00 10/29/24 08:16 Sodium Chloride 1 Gm Tablet PO 2 gm DAILY CALIXTO Administration Thiamine HCl 100 mg 10/19/24 09:00 10/29/24 08:16 Thiamine 100 Mg Tablet PO 100 mg DAILY CALIXTO Administration Tramadol HCl 50 mg 10/24/24 11:21 10/26/24 07:13 Tramadol 50 Mg Tablet PO 50 mg Q4HR PRN Administration Moderate Pain (Level 4-6) Zinc Oxide 113 gm 10/21/24 14:17 10/23/24 21:13 Cod Liver Oil/Zinc Oxide 113 Gm Tube TOP 1 applic PRN PRN Administration Skin Care Objective Vital Signs/Intake & Output Reviewed Vital Signs: Yes Vital Signs: Vital Signs x48h Temp Pulse Resp BP Pulse Ox O2 Flow Rate 10/29/24 16:37 36.7 C 67 20 135/75 H 94 2 Intake & Output: Intake & Output 10/26/24 10/27/24 10/28/24 10/29/24 23:59 23:59 23:59 23:59 Intake Total 1730 / 1730 1000 / 1000 970 / 970 2360 / 2360 Output Total 3750 / 3750 4200 / 4200 900 / 900 4200 / 4200 Balance -2020 / -2020 -3200 / -3200 70 / 70 -1840 / -1840 Weight (kg) 75.5 kg 73 kg 71 kg 71.5 kg Objective General Appearance: positive No acute distress and Alert Eyes Bilateral: positive Normal inspection and Other (periorbital ecchymosis) ENT: positive ENT inspection nml Neck: positive No JVD Respiratory: positive No respiratory distress and Breath sounds nml Cardiovascular: positive Regular rate & rhythm Abdomen: positive Non-tender, Nml bowel sounds and No distention Skin: positive Warm and Dry; negative Color nml (various resolving ecchymosis, visualized bilateral periorbital, bilateral hands, forehead, right elbow, left back, left foot) Extremities: positive No pedal edema Neurologic/Psychiatric: positive Oriented x3, CN's nml (2-12) (grossly intact ) and Other (depression is lifting slightly) Lab Results 10/28/24 05:21 10/28/24 05:21 Other Labs: Lab Results x24hrs 10/28/24 10/28/24 10/28/24 Range/Units 05:21 05:21 05:21 WBC (4.8-10.8) x10^3/uL RBC (4.20-5.40) 10^6/uL Hgb (12.0-16.0) g/dL Hct (37.0-47.0) % MCV (81.0-99.0) fL MCH (27.0-31.0) pg MCHC (32.0-36.0) g/dL RDW (12.0-15.0) % Plt Count (130-450) 10^3/uL MPV (7.9-10.8) fL Neut # (Auto) (1.5-6.6) 10^3/uL Lymph # (Auto) (1.5-3.5) 10^3/uL Kimball # (Auto) (0.0-1.0) 10^3/uL Eos # (Auto) (0.0-0.7) 10^3/uL Baso # (Auto) (0.0-0.1) 10^3/uL Absolute Nucleated RBC x10^3/uL Nucleated RBC % /100WBC Manual Slide Review WBC Morphology (NORMAL) Platelet Estimate (NORMAL) Platelet Morphology (NORMAL) RBC Morph Micro Appear 1+ POLYCHROMASIA 1+ OVALOCYTES 1+ HYPOCHROMASIA (NORMAL) Sodium 134 L (135-145) mmol/L Potassium 4.1 (3.5-4.5) mmol/L Chloride 98 L (101-111) mmol/L Carbon Dioxide 32 (21-32) mmol/L Anion Gap 4.0 L (6-13) BUN 9 (6-20) mg/dL Creatinine 0.4 L (0.6-1.3) mg/dL Estimated GFR (MDRD) 161 (>89) Glucose 97 (74-104) mg/dL Calcium 8.9 (8.5-10.3) mg/dL 10/28/24 Range/Units 05:21 WBC 6.3 (4.8-10.8) x10^3/uL RBC 3.60 L (4.20-5.40) 10^6/uL Hgb 9.3 L (12.0-16.0) g/dL Hct 30.9 L (37.0-47.0) % MCV 85.8 (81.0-99.0) fL MCH 25.8 L (27.0-31.0) pg MCHC 30.1 L (32.0-36.0) g/dL RDW 22.2 H (12.0-15.0) % Plt Count 392 (130-450) 10^3/uL MPV 8.9 (7.9-10.8) fL Neut # (Auto) 3.5 (1.5-6.6) 10^3/uL Lymph # (Auto) 2.0 (1.5-3.5) 10^3/uL [place]ball # (Auto) 0.5 (0.0-1.0) 10^3/uL Eos # (Auto) 0.2 (0.0-0.7) 10^3/uL Baso # (Auto) 0.1 (0.0-0.1) 10^3/uL Absolute Nucleated RBC 0.00 x10^3/uL Nucleated RBC % 0.0 /100WBC Manual Slide Review Indicated WBC Morphology NORMAL APPEARANCE (NORMAL) Platelet Estimate NORMAL (130-450,000) (NORMAL) Platelet Morphology NORMAL APPEARANCE (NORMAL) RBC Morph Micro Appear 2+ ANISOCYTOSIS (NORMAL) Sodium (135-145) mmol/L Potassium (3.5-4.5) mmol/L Chloride (101-111) mmol/L Carbon Dioxide (21-32) mmol/L Anion Gap (6-13) BUN (6-20) mg/dL Creatinine (0.6-1.3) mg/dL Estimated GFR (MDRD) (>89) Glucose (74-104) mg/dL Calcium (8.5-10.3) mg/dL Sepsis Event Note (H) Sepsis Criteria Sepsis Criteria: Recorded Heart Rate greater than 90 bpm and WBC count greater than 12,000 or less than 4000 Assessment/Plan Problem List (1) Alcohol withdrawal: Impression: She is alert and oriented with insight into her situation. She agrees that she should not drink alcohol again. She is medically clear for dc. Awaitng SNF auth, but simultaneously improving and may be able to dc to home. OT re eval is pending. She is approved for [facility] caregivers ,but she does smoke and has had a hard time finding workers. > 5 days since last drink Out of acute alcohol withdrawal DC Ativan Continue thiamine, MVI, folate Qualifiers: Complication of substance-induced condition: uncomplicated Qualified Code(s): F10.930 - Alcohol use, unspecified with withdrawal, uncomplicated (2) Acute hyponatremia: Impression: Likely beer Poto raji lab holiday today Continue salt tabs while inpatient- I am decreasing these to once daily (3) COPD (chronic obstructive pulmonary disease): Impression: lungs without adventitious sounds today. Symptoms much improved Completed prednisone burst Encourage pulmonary toilet Chest x-ray suspicious for pulmonary edema, echo without evidence of significant heart failure Continue home regimen of formoterol, budesonide Continue as needed Robitussin As needed albuterol Qualifiers: COPD type: unspecified COPD Qualified Code(s): J44.9 - Chronic obstructive pulmonary disease, unspecified (4) Hypokalemia: Impression: Repleted and resolved lab holiday today (5) Skin breakdown: Impression: Likely shear injuries along right gluteal fold from dragging herself along the floor in her drunken state Zinc, barrier cream Optimize nutrition (6) Closed fracture of toe: Impression: - X-ray from 10/18/2024 indicated acute minimally displaced fractures of the 4th digit proximal phalangeal base, 4th metatarsal neck, and 3rd digit proximal phalangeal medial base Now starting to have increased pain in her left foot Scheduled Tylenol 1 g every 8 hours oxycodone for pain. helping some. Adding ibuprofen Postop shoe on left foot when weightbearing Qualifiers: Encounter type: subsequent encounter (7) Depression: Impression: - Plan to continue home medications duloxetine and quetiapine Qualifiers: Depression Type: unspecified Qualified Code(s): F32.A - Depression, unspecified (8) Physical deconditioning: Impression: - PT recommends patient discharge to SNF/LTC as she does not appear to be safe living independently at this time This has been changing, she has been improving, and may dc with home health. Will involve social work after OT eval. - Patient has reached an understanding that she is unsafe to care for herself at home and will benefit from discharge to a [facility] facility for rehabilitation We are awaiting authorization. She is medically clear for discharge (9) Intertrigo: Impression: - Resolving left pannus intertrigo - Nystatin powder ordered to cover for mckenzie intertrigo (10) DM type 2 (diabetes mellitus, type 2): Impression: - Recent hemoglobin A1c came back normal at 5.6 - Hypoglycemia protocol in place Glucose checks were ordered during this admission for hypoglycemia, she does not need any continued diabetes management Qualifiers: Diabetes mellitus complication status: without complication Diabetes mellitus custodial insulin use: without custodial use Qualified Code(s): E11.9 - Type 2 diabetes mellitus without complications (11) Anemia: Impression: Iron deficiency anemia Ferrous sulfate 325 mg daily Qualifiers: Anemia type: unspecified type Qualified Code(s): D64.9 - Anemia, unspecified (12) UTI (urinary tract infection): Impression: She had a questionable UTI. Patient this was based off of a UA which was a dirty catch. Antibiotics were discontinued, WBC remains normal Qualifiers: Hematuria presence: with hematuria Urinary tract infection type: site unspecified Qualified Code(s): N39.0 - Urinary tract infection, site not specified; R31.9 - Hematuria, unspecified (13) Metabolic acidosis: Impression: - Resolved after aggressive IV fluids I have spent 28 minutes in the care of this patient today. This includes time [id number], review and ordering of diagnostic imaging and laboratory studies.
[2024-10-30 09:40] VITALS: BP 140/68; TEMP 98.1; O2SAT 92
--- NOTE | 2024-10-30 12:14 | Discharge Summary ---
Discharge Summary Admit Date: 10/18/24 Discharge Date: 10/30/24 Discharging Provider: Tamika Anders PA-C Primary Care Provider: GARRET Gaston Code Status: Attempt Resuscitation DIAGNOSES Discharge Diagnoses with Status of Each Condition: Alcohol withdrawal, present on admission and resolved. Acute hyponatremia, resolved COPD,, exacerbated on admission, exacerbation resolved. Patient is a chronic smoker Hypokalemia, resolved Skin breakdown, gluteal fold shear injuries, healing. Left foot fracture: Minimally displaced fractures of the fourth digit proximal phalanx base, fourth metatarsal neck, and third digit proximal phalangeal medial base, present on admission healing Depression, chronic and treated Physical deconditioning, resolving, home health referral made Intertrigo, resolving. Type 2 diabetes, recent A1c 5.6 no continue diabetes management. Anemia, resolving. Recheck hemoglobin in outpatient environment Metabolic acidosis, resolved after IV fluid resuscitation HPI History of Present Illness: 64-year-old female history of alcohol dependence bordering on abuse presents to the emergency department after being found down for an unknown period of time. She has presented to the hospital for complications of alcohol abuse before. She was found by her renter on the floor with extensive bruising on both eyes, forehead, left hip. She is minimally interactive with her interview, reports that most days she drinks all day. She denies any hard alcohol intake, says that she mostly drinks beer. She reports very poor diet, the occasional toast or crackers. In the ER, CT head, facial bones, C-spine was without acute fracture but did show Soft tissue hematomas overlying frontal bone, periorbital region. CT chest without traumatic injury. CT abdomen/pelvis with some nonspecific lower lung groundglass opacities, wall thickening of the distal esophagus likely reflux esophagitis, hepatic steatosis. Elbow x-ray was normal, but her x-ray of her left toes showed a acute minimally displaced fracture of the fourth digit phalangeal base, fourth metatarsal neck, third digital proximal phalangeal medial base She had a leukocytosis of 20 in the setting of acute alcohol withdrawal. Her sodium is 121, CO2 20, anion gap 19. Her AST is 125, up from 101 earlier this month. Her lipase is 101. Her ethyl alcohol level was 100.1. Hospitalist was contacted for admission for multiple reasons including acute hyponatremia, impending delirium tremens, anion gap metabolic acidosis ALLERGIES Allergies Allergy/AdvReac Type Severity Reaction Status Date / Time ciprofloxacin Allergy Severe Hives Verified 10/18/24 17:36 Sulfa (Sulfonamide Allergy Mild oral Verified 10/18/24 17:36 Antibiotics) blisters MEDICATIONS Ambulatory Orders Medication Instructions Recorded Confirmed duloxetine 60 mg capsule,delayed 60 mg PO DAILY 11/21/23 10/19/24 release thiamine mononitrate (vit B1) 100 100 mg PO DAILY 30 days #30 tabs 06/09/24 10/19/24 mg tablet (Vitamin B-1 (mononitrate)) albuterol sulfate 90 mcg/actuation 2 puff inhalation Q4H PRN 07/13/24 10/19/24 aerosol inhaler shortness of breath or wheezing blood sugar diagnostic [True 07/13/24 07/13/24 Metrix Glucose Test Strip] docusate sodium 100 mg capsule 100 mg PO QDAY 07/13/24 10/19/24 (Colace) lancets 30 gauge (BD Microtainer 07/13/24 07/13/24 Lancet) amlodipine 5 mg tablet (Norvasc) 5 mg PO QDAY #90 tabs 07/17/24 10/19/24 aspirin 81 mg tablet,delayed See Rx Instructions .Route 08/28/24 10/19/24 release .COMPLEX #100 tabs quetiapine 50 mg tablet 50 mg PO QPM #90 tabs 09/25/24 10/19/24 gabapentin 300 mg capsule 300 mg PO TID #60 caps 10/05/24 10/19/24 vit,calcium 27-ferrous 1 tab PO DAILY 30 days #30 tabs 10/23/24 fum 60 mg iron-folic acid 1 mg tablet (Trinatal Rx 1) sodium chloride 1,000 mg soluble 2,000 mg (2 x 1,000 mg) PO BID 3 10/23/24 tablet days #12 tabs ibuprofen 600 mg tablet 600 mg PO Q6HR PRN Moderate Pain 10/30/24 (Level 4-6) #30 tabs oxycodone 5 mg tablet 5 mg PO Q4HR PRN Pain 5 to 7 #10 10/30/24 tabs simvastatin 20 mg tablet 20 mg PO QPM #90 tabs 10/30/24 LABS 10/28/24 05:21 10/28/24 05:21 SEPSIS Sepsis Criteria: Recorded Heart Rate greater than 90 bpm and WBC count greater than 12,000 or less than 4000 FOLLOW UP Follow Up: PCP 7-10 days. Recheck CBC, BMP. consider podiatry or ortho referral. TIME SPENT Time Spent in Discharge (Minutes): 40 Discharge Plan Discharge Patient Disposition: 06 Home Health Service Condition: Good Prescriptions: New Trinatal Rx 1 60 mg iron-1 mg Tablet 1 tab PO DAILY 30 Days Qty: 30 0RF sodium chloride 1,000 mg Tablet,Soluble 2,000 mg PO BID 3 Days Qty: 12 0RF ibuprofen 600 mg Tablet 600 mg PO Q6HR PRN (Reason: Moderate Pain (Level 4-6)) Qty: 30 0RF oxycodone 5 mg Tablet 5 mg PO Q4HR PRN (Reason: Pain 5 to 7) Qty: 10 0RF Continued aspirin 81 mg tablet,delayed release (DR/EC) See Rx Instructions .ROUTE .COMPLEX Qty: 100 3RF Dose Instruction: TAKE 1 TABLET BY MOUTH DAILY Rx Instructions: TAKE 1 TABLET BY MOUTH DAILY quetiapine 50 mg tablet 50 mg PO QPM Qty: 90 2RF duloxetine 60 MG capsule,delayed release(DR/EC) 60 mg PO DAILY thiamine mononitrate (vit B1) [Vitamin B-1 (mononitrate)] 100 MG tablet 100 mg PO DAILY 30 Days Qty: 30 0RF gabapentin 300 mg capsule 300 mg PO TID Qty: 60 0RF albuterol sulfate 90 mcg/actuation HFA aerosol inhaler 2 puff inhalation Q4H PRN (Reason: shortness of breath or wheezing) Rx Instructions: Inhale 2 puff using inhaler every four hours as needed docusate sodium [Colace] 100 mg capsule 100 mg PO QDAY (DME) blood sugar diagnostic [True Metrix Glucose Test Strip] .ROUTE Rx Instructions: Use twice a day to check blood sugar (DME) lancets [BD Microtainer Lancet] 30 gauge misc See Rx Instructions .ROUTE Rx Instructions: Use to monitor blood sugar twice a day amlodipine [Norvasc] 5 mg tablet 5 mg PO QDAY Qty: 90 4RF Discontinued lorazepam [Ativan] 1 mg tablet 1 mg PO TID PRN (Reason: alcohol withdrawal) Qty: 14 0RF phenobarbital 30 mg tablet See Rx Instructions PO .COMPLEX PRN (Reason: sedation) Rx Instructions: orally 1 BID DAY3 PRN SEDATION, THEN 1 OD DAY3 PRN; 1 bid day3 prn sedation, then 1 od day3. No Action simvastatin 20 mg tablet 20 mg PO QPM Qty: 90 3RF Activity Restrictions: Activity as Tolerated Activity Restrictions/Additional Instructions: Wear a surgical shoe on your left foot when weight bearing, for comfort. Diet: Regular Health Concerns: You are a 64-year-old woman who was found face down on the ground after an unknown period of time and brought the the emergency room. You had significant bruising around both eyes, your forehead, right elbow, left hip, and left foot. Fortunately, we did not discover any broken bones in your face, elbow, or ribs. However, you do have 3 fractures in your left foot. These will heal with time and you are being sent home with a surgical shoe to wear for comfort when you are standing or walking. You were experiencing significant alcohol withdrawal upon arrival to our emergency room. Alcohol withdrawal occurs in people who have developed alcohol dependence. You are likely suffering from alcohol use disorder, which means you are unable to control or stop your drinking. This can lead to negative financial, social, emotional, and physical effects. Withdrawal can be lethal if not treated appropriately in a hospital setting. While you were here, we treated your alcohol withdrawal with benzodiazepines. These medications helped prevent you from having life-threatening seizures, delirium, and high blood pressure. Additionally, you were suffering from significant electrolyte imbalances. Your sodium was low. This can cause seizures, coma, and even . We treated you with IV fluids that contained sodium and oral sodium tablets. You also had low potassium. This can cause serious cardiac arrhythmias. We gave you IV potassium to fix this. Your electrolyte imbalances were likely secondary to your alcohol use. Excessive alcohol intake, coupled with minimal water and food intake, can cause you to be low in many important vitamins and minerals. Alcohol use disorder is a disease that many people smith. It is possible to overcome your alcohol abuse. We strongly advise you to participate in programs that promote abstinence from alcohol. We also advise you to stop drinking alcohol. It poses an incredibly high risk to your mental and physical health. We feel confident that you can do this!! You have learned a lot about yourself while you have been here. After being evaluated by medical staff, including physical therapy and occupational therapy, we came to an agreement you would benefit from [facility]. However, after being here for longer, you got stronger and now are strong enough to go home. You have been a great patient, and we have come to know you as a person, and I have enjoyed taking care of you. We all wish you the best. Thank you for entrusting us with your care. Care Plan Goals: Home health for continued rehab. Oxycodone for severe pain, use Tylenol and ibuprofen as well. Calcium plus Vitamin D supplements over the counter. These will help your fracture heal. vitamins over the counter will help you recover as well. Make sure to call and get a hospital followup scheduled with BLANQUITA Lunsford. you will need lab work to check your sodium and potassium, as well as your red blood cells. She should likely also refer you to ortho or podiatry to follow up your foot fracture. Print Language: Estonian Patient Instructions: ED Fx Foot Follow-up Care: Raiza Lunsford ARNP [Primary Care Provider] -
== END 2024-10-30 14:05 | disposition home health service (06) | DRG 897 ==
LOC: ED 17:19 → ICU 20:55 → MS2 10-24 04:30
PROVIDERS: ADMIT Nurse Practitioner Acute Care; ATTEND Nurse Practitioner Acute Care
DX: E87.6 Hypokalemia; M25.521 Pain in right elbow; J44.1 Chronic obstructive pulmonary disease with (acute) exacerbation; F10.239 Alcohol dependence with withdrawal, unspecified; I08.0 Rheumatic disorders of both mitral and aortic valves; D72.829 Elevated white blood cell count, unspecified; F17.210 Nicotine dependence, cigarettes, uncomplicated; D64.9 Anemia, unspecified; Z79.899 Other long term (current) drug therapy; S92.512A Displaced fracture of proximal phalanx of left lesser toe(s), initial encounter for closed fracture; Z79.82 Long term (current) use of aspirin; S00.12XA Contusion of left eyelid and periocular area, initial encounter; M25.552 Pain in left hip; S70.02XA Contusion of left hip, initial encounter; S92.342A Displaced fracture of fourth metatarsal bone, left foot, initial encounter for closed fracture; S09.90XA Unspecified injury of head, initial encounter; S00.11XA Contusion of right eyelid and periocular area, initial encounter; L98.8 Other specified disorders of the skin and subcutaneous tissue; S30.1XXA Contusion of abdominal wall, initial encounter; W19.XXXA Unspecified fall, initial encounter; S00.83XA Contusion of other part of head, initial encounter; F32.A Depression, unspecified; Y90.5 Blood alcohol level of 100-119 mg/100 ml; E87.20 Acidosis, unspecified; M54.2 Cervicalgia; R31.9 Hematuria, unspecified; I27.20 Pulmonary hypertension, unspecified; R74.01 Elevation of levels of liver transaminase levels; E87.1 Hypo-osmolality and hyponatremia; L30.4 Erythema intertrigo; K76.0 Fatty (change of) liver, not elsewhere classified; M25.421 Effusion, right elbow; E11.9 Type 2 diabetes mellitus without complications

== ENCOUNTER 2024-12-05 16:18 | Observation (INO) ==
--- NOTE | 2024-12-05 16:39 | ED Physician Documentation ---
History of Present Illness Stated complaint Stated Complaint: ETOH/HBD Chief complaint Chief Complaint: General History obtained from History obtained from: Patient and Family History of Present Illness Pain level max: 0 Pain level now: 0 Additonal information Additional information: Patient is a 64-year-old female brought in by EMS. EMS states that they were called for "detox". The patient was unable to give any history. They state that they found alcohol cans in the trash can. Patient states she does not know why she is here. Denies any pain. Appears confused. Review of Systems Status of ROS: unobtainable due to mental status Meds/Allgy Home Medications Ambulatory Orders Medication Instructions Recorded Confirmed duloxetine 60 mg capsule,delayed 60 mg PO DAILY 11/21/23 11/30/24 release albuterol sulfate 90 mcg/actuation 2 puff inhalation Q4H PRN 07/13/24 11/30/24 aerosol inhaler shortness of breath or wheezing blood sugar diagnostic [True 07/13/24 11/30/24 Metrix Glucose Test Strip] lancets 30 gauge (BD Microtainer 07/13/24 11/30/24 Lancet) amlodipine 5 mg tablet (Norvasc) 5 mg PO QDAY #90 tabs 07/17/24 11/30/24 aspirin 81 mg tablet,delayed See Rx Instructions .Route 08/28/24 11/30/24 release .COMPLEX #100 tabs quetiapine 50 mg tablet 50 mg PO QPM #90 tabs 09/25/24 11/30/24 gabapentin 300 mg capsule 300 mg PO TID #60 caps 10/05/24 11/30/24 vit,calcium 27-ferrous 1 tab PO DAILY 30 days #30 tabs 10/23/24 11/30/24 fum 60 mg iron-folic acid 1 mg tablet (Trinatal Rx 1) ibuprofen 600 mg tablet 600 mg PO Q6HR PRN Moderate Pain 10/30/24 11/30/24 (Level 4-6) #30 tabs simvastatin 20 mg tablet 20 mg PO QPM #90 tabs 10/30/24 11/30/24 metformin 500 mg tablet 500 mg PO BID #180 tabs 11/27/24 11/30/24 Allergies Allergies Allergy/AdvReac Type Severity Reaction Status Date / Time ciprofloxacin Allergy Severe Hives Verified 12/05/24 16:31 Sulfa (Sulfonamide Allergy Mild oral Verified 12/05/24 16:31 Antibiotics) blisters PFSH Active Problems All Active Problems (Updated 12/05/24 @ 18:35 by Stepan Crow MD) Alcoholism (Acute) Encephalopathy acute (Acute) Acute alteration in mental status (Acute) Other hereditary corneal dystrophies, 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, left eye (Acute) Alcohol withdrawal (Acute) EtOH dependence (Acute) Metatarsal bone fracture (Acute) Back contusion (Acute) Physical deconditioning (Acute) Intertrigo (Acute) Skin breakdown (Acute) UTI (urinary tract infection) (Acute) Closed fracture of toe (Acute) Depression (Acute) Congestive heart failure (Acute 12/21/18) Depression with anxiety (Acute) Chronic low back pain (Acute 06/23/19) Cataracts, bilateral (Acute 12/13/18) Tremor (Acute 07/15/17) Tobacco dependence (Acute 05/04/17) Shoulder pain, bilateral (Acute 05/31/19) Rheumatoid arthritis (Acute 12/21/18) Restless leg syndrome (Acute 03/17/19) Pulmonary hypertension (Acute 08/03/18) PTSD (post-traumatic stress disorder) (Acute 05/29/16) Peripheral neuropathy (Acute 03/17/21) Obstructive sleep apnea (Acute 05/29/16) Obesity (Acute 05/04/17) Nicotine dependence, cigarettes, uncomplicated (Acute 08/19/16) Neck pain, chronic (Acute 06/23/19) Menopausal disorder (Acute 02/15/18) Lung nodule (Acute 05/29/16) Interstitial lung disease (Acute 05/29/16) Incontinence (Acute 05/29/16) GERD (gastroesophageal reflux disease) (Acute 05/29/16) Frequent falls (Acute 07/15/17) Essential hypertension, benign (Acute 08/31/23) Borderline personality disorder (Acute 05/29/16) Bipolar II disorder (Acute 05/29/16) Crawford's esophagus (Acute 05/29/16) Alopecia (Acute 04/28/17) Allergic rhinitis (Acute 11/18/17) Alcohol use disorder (Acute) Fibromyalgia (Acute) Hyponatremia (Acute) Microcytic anemia (Acute) Hx of falling (Acute) DM type 2 (diabetes mellitus, type 2) (Acute) COPD (chronic obstructive pulmonary disease) (Chronic) Hyperlipidemia (Chronic) Hypertension (Chronic) Sciatica (Chronic) Chronic pain (Chronic) Medical History Medical History (Updated 12/05/24 @ 18:35 by Stepan Crow MD) Fall from ground level Compression fracture of L1 lumbar vertebra Colitis Rotator cuff tear Surgical History Surgical History H/O cervical spine surgery S/P hardware removal Status post open reduction and internal fixation (ORIF) of fracture Family History Family History (Updated 07/17/24 @ 15:16 by GARRET Juárez) Mother Osteoporosis Arthritis Cancer Anxiety Depressed Heart disease Hyperlipidemia Father Family history of lung cancer Other Suicide attempt Social History Social History Smoking Status: Current every day smoker If you are a former smoker, when did you quit? (Date/Year): n/a Number of Years Smoked: 40 How many cigarettes a day do you smoke? (20 cigarettes=1 Pk): 20 Second hand tobacco smoke exposure: Yes Do you dip or chew tobacco?: No Do you vape?: No Patient requests smoking cessation consult: No Initiate information on smoking cessation: No Living arrangement: At home Living Condition: With friend(s) and Other (Reportedly lives with two roomates.) Relationship: Living Situation Details: lives with room mate Level: Dependent Home Mobility Equipment: Cane, Wheeled walker and Wheelchair Do you feel safe in your home environment?: Yes Suffered physical, verbal, emotional, or financial abuse?: No History of Abuse: No ETOH Use: Beer Frequency: Daily Number of Amount/day: 15 ETOH Use Details: Per patient unsure of quantity due to changes in beer sized. Estimates 10-15 12oz beers nightly Substance Use: denies use Substance Use Details: tried but didn't like how it made her feel POLST Patient has POLST: No POLST Status: Full Code Exam Constitutional normal general appearance HENMT normocephalic Bruising to the forehead. No scalp hematomas or palpable skull fractures Eyes PERRL and EOMs intact bilaterally Neck/C-Spine trachea midline, cervical spine nontender, cervical full ROM noted and supple Lymph no lymphadenopathy noted Respiratory breath sounds equal bilaterally and normal respiratory effort Cardiovascular normal heart rate noted and regular rhythm noted Gastrointestinal abdomen soft to palpation, nontender to palpation and nondistended Back/Pelvis no thoracic spine tenderness and no lumbar spine tenderness Extremities no deformity No edema Neurology mallet and die cutter II-XII intact Psychiatry Patient is alert, but has very delayed responses to questioning. Often inappropriate. Skin skin color normal Results Vitals Vitals: Vital Signs - 24 hr 12/05/24 16:24 Temperature 36.5 C Temperature Source Temporal Artery Scan Pulse Rate 88 Respiratory Rate 16 Blood Pressure 143/71 H O2 Saturation 96 O2 Source Room air Pain Intensity 0 Oxygen O2 Source [With Activity] Room air O2 Source Room air Labs Labs: Laboratory Tests 12/05/24 12/05/24 12/05/24 16:44 17:15 17:39 WBC 4.5 L RBC 4.61 Hgb 13.6 Hct 42.0 MCV 91.1 MCH 29.5 MCHC 32.4 RDW 20.4 H Plt Count 325 MPV 9.2 Neut # (Auto) 2.2 Lymph # (Auto) 1.9 [place] # (Auto) 0.3 Eos # (Auto) 0.2 Baso # (Auto) 0.0 Absolute Nucleated RBC 0.00 Nucleated RBC % 0.0 Manual Slide Review Indicated WBC Morphology NORMAL APPEARANCE Platelet Estimate NORMAL (130-450,000) Platelet Morphology NORMAL APPEARANCE RBC Morph Micro Appear NORMAL APPEARANCE Sodium 135 Potassium 3.4 L Chloride 98 L Carbon Dioxide 22 Anion Gap 15.0 H BUN 3 L Creatinine 0.3 L Estimated GFR (MDRD) 225 Glucose 105 H Calcium 8.9 Magnesium 2.0 Total Bilirubin 0.3 AST 100 H ALT 110 H Alkaline Phosphatase 84 Total Protein 7.5 Albumin 3.9 Globulin 3.6 Albumin/Globulin Ratio 1.1 Lipase 84 H Vitamin B12 618 Folate > 44.6 TSH 1.38 Urine Color YELLOW Urine Clarity CLEAR Urine pH 6.0 Ur Specific [place] <=1.005 Urine Protein NEGATIVE Urine Glucose (UA) NEGATIVE Urine Ketones NEGATIVE Urine Occult Blood NEGATIVE Urine Nitrite NEGATIVE Urine Bilirubin NEGATIVE Urine Urobilinogen 0.2 (NORMAL) Ur Leukocyte Esterase NEGATIVE Ur Microscopic Review NOT INDICATED Urine Culture Comments NOT INDICATED Salicylates < 1.5 Urine Opiates Screen NEGATIVE Ur Buprenorphine Scrn NEGATIVE Ur Oxycodone Screen NEGATIVE Urine Methadone Screen NEGATIVE Acetaminophen 0.2 Ur Barbiturates Screen NEGATIVE Ur Tricyclics Screen NEGATIVE Ur Phencyclidine Scrn NEGATIVE Ur Amphetamine Screen NEGATIVE U Methamphetamines Scrn NEGATIVE U Benzodiazepines Scrn NEGATIVE Urine Cocaine Screen NEGATIVE U Cannabinoids Screen NEGATIVE Ur Drug Screen Comment CUTOFF CONC BELOW: Ethyl Alcohol 102.8 Rads (name of study) head CT: Relevant Findings:: Final report received cervical spine CT: Relevant Findings:: Final report received PD Medical Decision Making ED course Complexity details: reviewed results, considered differential and d/w patient ED course: Patient is a 64-year-old female, history of alcoholism. Presents with acute alteration in mental status. Appears to be responding to internal stimuli however appears to be significantly encephalopathic. No acute findings on head CT or cervical spine CT. No significant lab abnormalities. Alcohol level is elevated but not high enough to cause her symptoms. Question other ingestion? Banana bag was ordered. Given her significant altered mental status, will place in observation, discussed the case with the hospitalist who accepts. As an example of her altered mental status, when asked what brought her into the emergency department she points to the wall and states that her arm is over there and draws an angle with her finger in the direction of the wall/ceiling. Discharge Plan Discharge Patient Disposition: ED Place in Observation Condition: Stable Clinical Impression: Acute alteration in mental status, Encephalopathy acute, Alcoholism Prescriptions: No Action aspirin 81 mg tablet,delayed release (DR/EC) See Rx Instructions .ROUTE .COMPLEX Qty: 100 3RF Dose Instruction: TAKE 1 TABLET BY MOUTH DAILY Rx Instructions: TAKE 1 TABLET BY MOUTH DAILY quetiapine 50 mg tablet 50 mg PO QPM Qty: 90 2RF simvastatin 20 mg tablet 20 mg PO QPM Qty: 90 3RF metformin 500 mg tablet 500 mg PO BID Qty: 180 0RF duloxetine 60 MG capsule,delayed release(DR/EC) 60 mg PO DAILY gabapentin 300 mg capsule 300 mg PO TID Qty: 60 0RF Trinatal Rx 1 60 mg iron-1 mg Tablet 1 tab PO DAILY 30 Days Qty: 30 0RF ibuprofen 600 mg Tablet 600 mg PO Q6HR PRN (Reason: Moderate Pain (Level 4-6)) Qty: 30 0RF albuterol sulfate 90 mcg/actuation HFA aerosol inhaler 2 puff inhalation Q4H PRN (Reason: shortness of breath or wheezing) Rx Instructions: Inhale 2 puff using inhaler every four hours as needed (DME) blood sugar diagnostic [True Metrix Glucose Test Strip] .Route Rx Instructions: Use twice a day to check blood sugar (DME) lancets [BD Microtainer Lancet] 30 gauge misc See Rx Instructions .Route Rx Instructions: Use to monitor blood sugar twice a day amlodipine [Norvasc] 5 mg tablet 5 mg PO QDAY Qty: 90 4RF Print Language: Nauruan Stand Alone Forms: PCP List
[2024-12-05 16:53] LABS: BASOPHILS % (AUTO) 0.7 %; EOSINOPHILS # (AUTO) 0.2 10^3/uL (0.0-0.7); EOSINOPHILS % (AUTO) 3.6 %; HGB - HEMOGLOBIN 13.6 g/dL (12.0-16.0); LYMPHOCYTES # (AUTO) 1.9 10^3/uL (1.5-3.5); LYMPHOCYTES % (AUTO) 41.3 %; MEAN CORPUSCULAR HEMOGLOBIN 29.5 pg (27.0-31.0); MEAN CORPUSCULAR HGB CONC 32.4 g/dL (32.0-36.0); MEAN CORPUSCULAR VOLUME 91.1 fL (81.0-99.0); MEAN PLATELET VOLUME 9.2 fL (7.9-10.8); MONOCYTES # (AUTO) 0.3 10^3/uL (0.0-1.0); MONOCYTES % (AUTO) 5.6 %; NEUTROPHILS # (AUTO) 2.2 10^3/uL (1.5-6.6); NEUTROPHILS % (AUTO) 48.4 %; PLT - PLATELET COUNT 325 10^3/uL (130-450); RED BLOOD COUNT 4.61 10^6/uL (4.20-5.40); RED CELL DISTRIBUTION WIDTH 20.4 % (12.0-15.0); WHITE BLOOD COUNT 4.5 x10^3/uL (4.8-10.8)
[2024-12-05 16:54] LABS: SLIDE REVIEW? Indicated
[2024-12-05 17:10] LABS: PLATELET ESTIMATE, MANUAL NORMAL (130-450,000) (NORMAL); PLATELET MORPHOLOGY NORMAL APPEARANCE (NORMAL); RBC MORPHOLOGY (MULTIPLE) NORMAL APPEARANCE (NORMAL); WBC MORPHOLOGY (MULTIPLE) NORMAL APPEARANCE (NORMAL)
--- NOTE | 2024-12-05 17:22 | CT Report ---
PROCEDURE: CT Head WO INDICATIONS: fall, etoh, aloc TECHNIQUE: Noncontrast 4.5 mm thick angled axial sections acquired from the foramen magnum to the vertex. For r adiation dose reduction, the following was used: automated exposure control, adjustment of mA and/or kV according to patient size. COMPARISON: 11/11/2024. FINDINGS: Image quality: Excellent. CSF spaces: Basal cisterns are patent. No extra-axial fluid collections. Ventricles are normal in size and shape. Brain: No midline shift. No intracranial masses or hemorrhage. Benoit-white matter interface is norm al.. Age-related global volume loss and chronic microvascular ischemic changes. Intracranial atherosc lerotic vascular calcifications. Skull and face: Frontal scalp hematoma without underlying fracture. Calvarium and visualized facial b ones are intact, without suspicious lesions. Sinuses: Visualized sinuses and mastoids are clear. IMPRESSION: No acute intracranial pathology. Reviewed by: Chaim Moreland MD on 12/05/2024 5:21 PM PST Approved by: Chaim Moreland MD on 12/05/2024 5:21 PM PST Station ID: [id number]
--- NOTE | 2024-12-05 17:23 | CT Report ---
PROCEDURE: CT Cervical Spine WO INDICATIONS: fall, aloc TECHNIQUE: Noncontrast 3 mm thick sections acquired from the skull base to the T4 level. Sagittal and coronal r eformats were then constructed. For radiation dose reduction, the following was used: automated exp osure control, adjustment of mA and/or kV according to patient size. COMPARISON: None. FINDINGS: Image quality: Excellent. Bones: No fractures or dislocations. Straightening of the normal cervical lordosis. Multilevel degen erative changes of the spine. Visualized superior ribs are intact. Soft tissues: Prevertebral soft tissues are normal in thickness. No paravertebral hematomas. No ap ical pneumothoraces. Emphysematous changes at the lung apices. IMPRESSION: No acute, displaced fracture or traumatic subluxation. Reviewed by: Chaim Moreland MD on 12/05/2024 5:22 PM PST Approved by: Chaim Moreland MD on 12/05/2024 5:22 PM PST Station ID: [id number]
[2024-12-05 17:39] LABS: ACETAMINOPHEN 0.2 ug/mL; ETOH - ETHANOL 102.8 mg/dL; LIPASE 84 U/L (11-82)
[2024-12-05 17:48] LABS: BILIRUBIN,URINE NEGATIVE (NEGATIVE); GLUCOSE, URINE (UA) NEGATIVE (NEGATIVE); KETONES,URINE (UA) NEGATIVE (NEGATIVE); LEUKOCYTE ESTERASE, URINE NEGATIVE (NEGATIVE); NITRITE,URINE NEGATIVE (NEGATIVE); OCCULT BLOOD,URINE NEGATIVE (NEGATIVE); PROTEIN,URINE NEGATIVE (NEGATIVE); UROBILINOGEN,URINE 0.2 (NORMAL) E.U./dL (NORMAL)
[2024-12-05 17:48] LABS: ALBUMIN 3.9 g/dL (3.2-5.5); ALBUMIN/GLOBULIN RATIO 1.1 (1.0-2.2); ALKALINE PHOSPHATASE 84 IU/L (42-121); ALT ALANINE AMINOTRANSFERASE 110 IU/L (10-60); AST ASPARTATE AMINOTRANSFERASE 100 IU/L (10-42); BILIRUBIN,TOTAL 0.3 mg/dL (0.2-1.0); BUN - BLOOD UREA NITROGEN 3 mg/dL (6-20); CALCIUM 8.9 mg/dL (8.5-10.3); CARBON DIOXIDE - CO2 22 mmol/L (21-32); CHLORIDE 98 mmol/L (101-111); CREATININE 0.3 mg/dL (0.6-1.3); GFR - MDRD 225 (>89); GLUCOSE 105 mg/dL (74-104); POTASSIUM 3.4 mmol/L (3.5-4.5); SALICYLATE < 1.5 mg/dL; SODIUM 135 mmol/L (135-145); TOTAL PROTEIN 7.5 g/dL (6.4-8.9)
[2024-12-05 17:49] LABS: CLARITY,URINE CLEAR (CLEAR)
[2024-12-05 17:49] LABS: THYROID STIMULATING HORMONE 1.38 uIU/mL (0.34-5.60)
[2024-12-05 17:57] LABS: AMPHETAMINE SCREEN,URINE NEGATIVE (NEGATIVE); BARBITURATE SCREEN,UR NEGATIVE (NEGATIVE); BENZODIAZEPINES SCREEN, URINE NEGATIVE (NEGATIVE); BUPRENORPHINE SCREEN, URINE NEGATIVE (NEGATIVE); COCAINE SCREEN URINE NEGATIVE (NEGATIVE); METHADONE SCREEN, URINE NEGATIVE (NEGATIVE); METHAMPHETAMINES SCREEN, URINE NEGATIVE (NEGATIVE); OPIATE SCREEN, URINE NEGATIVE (NEGATIVE); OXYCODONE SCREEN, URINE NEGATIVE (NEGATIVE); THC CANNABINOID SCREEN, URINE NEGATIVE (NEGATIVE); TRICYCLIC ANTIDEPRESSANT,URINE NEGATIVE (NEGATIVE)
--- NOTE | 2024-12-05 19:07 | HISTORY & PHYSICAL EXAMINATION ---
<Statement entered by Momo Carmona DNP - 12/05/24 20:45> Patient was seen and examined by me with a separate encounter after being seen by SAUL student. I reviewed the student's documentation including patient history, physical examination, laboratory, imaging, clinical assessment and treatment plan. I have discussed the management of the patient with the student, and with the patient. There are no changes. 64-year-old female known history of alcohol abuse placed in observation for altered mental status. [facility] protocol Chief Complaint Chief Complaint Chief Complaint: Altered mental status History of Present Illness Admitted From Admitted From:: Emergency department History Obtained From Records Reviewed: emergency department note Exam Limitations: Patient AMS History of Present Illness HPI Comment/Other: Patient is a 64 year old female with history of alcoholism, type II DM, pulmonary hypertension, depression that presents for altered mental status. Patient has had multiple ER visits due to complications of alcoholism including hyponatremia, withdrawal. Due to AMS, history is limited. Per emergency department report, patient called EMS, but was found with bruising on her head, unable to answer EMS questions and with multiple empty alcohol containers in the trash can. F ER labs are unremarkable, Head and neck CT unremarkable, alcohol level of 102.8, UA negative. Hospitalist was consulted for possible admission for AMS. Meds/Allgy Home Medications Ambulatory Orders Medication Instructions Recorded Confirmed duloxetine 60 mg capsule,delayed 60 mg PO DAILY 11/21/23 11/30/24 release albuterol sulfate 90 mcg/actuation 2 puff inhalation Q4H PRN 07/13/24 11/30/24 aerosol inhaler shortness of breath or wheezing blood sugar diagnostic [True 07/13/24 11/30/24 Metrix Glucose Test Strip] lancets 30 gauge (BD Microtainer 07/13/24 11/30/24 Lancet) amlodipine 5 mg tablet (Norvasc) 5 mg PO QDAY #90 tabs 07/17/24 11/30/24 aspirin 81 mg tablet,delayed See Rx Instructions .Route 08/28/24 11/30/24 release .COMPLEX #100 tabs quetiapine 50 mg tablet 50 mg PO QPM #90 tabs 09/25/24 11/30/24 gabapentin 300 mg capsule 300 mg PO TID #60 caps 10/05/24 11/30/24 vit,calcium 27-ferrous 1 tab PO DAILY 30 days #30 tabs 10/23/24 11/30/24 fum 60 mg iron-folic acid 1 mg tablet (Trinatal Rx 1) ibuprofen 600 mg tablet 600 mg PO Q6HR PRN Moderate Pain 10/30/24 11/30/24 (Level 4-6) #30 tabs simvastatin 20 mg tablet 20 mg PO QPM #90 tabs 10/30/24 11/30/24 metformin 500 mg tablet 500 mg PO BID #180 tabs 11/27/24 11/30/24 Allergies Allergies Allergy/AdvReac Type Severity Reaction Status Date / Time ciprofloxacin Allergy Severe Hives Verified 12/05/24 16:31 Sulfa (Sulfonamide Allergy Mild oral Verified 12/05/24 16:31 Antibiotics) blisters PFSH Active Problems All Active Problems (Updated 12/05/24 @ 19:16 by Nneka Hilliard) Diabetes (Acute) Altered mental status (Acute) Alcoholism (Acute) Encephalopathy acute (Acute) Acute alteration in mental status (Acute) Other hereditary corneal dystrophies, 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, left eye (Acute) Alcohol withdrawal (Acute) EtOH dependence (Acute) Metatarsal bone fracture (Acute) Back contusion (Acute) Physical deconditioning (Acute) Intertrigo (Acute) Skin breakdown (Acute) UTI (urinary tract infection) (Acute) Closed fracture of toe (Acute) Depression (Acute) Congestive heart failure (Acute 12/21/18) Depression with anxiety (Acute) Chronic low back pain (Acute 06/23/19) Cataracts, bilateral (Acute 12/13/18) Tremor (Acute 07/15/17) Tobacco dependence (Acute 05/04/17) Shoulder pain, bilateral (Acute 05/31/19) Rheumatoid arthritis (Acute 12/21/18) Restless leg syndrome (Acute 03/17/19) Pulmonary hypertension (Acute 08/03/18) PTSD (post-traumatic stress disorder) (Acute 05/29/16) Peripheral neuropathy (Acute 03/17/21) Obstructive sleep apnea (Acute 05/29/16) Obesity (Acute 05/04/17) Nicotine dependence, cigarettes, uncomplicated (Acute 08/19/16) Neck pain, chronic (Acute 06/23/19) Menopausal disorder (Acute 02/15/18) Lung nodule (Acute 05/29/16) Interstitial lung disease (Acute 05/29/16) Incontinence (Acute 05/29/16) GERD (gastroesophageal reflux disease) (Acute 05/29/16) Frequent falls (Acute 07/15/17) Essential hypertension, benign (Acute 08/31/23) Borderline personality disorder (Acute 05/29/16) Bipolar II disorder (Acute 05/29/16) Crawford's esophagus (Acute 05/29/16) Alopecia (Acute 04/28/17) Allergic rhinitis (Acute 11/18/17) Alcohol use disorder (Acute) Fibromyalgia (Acute) Hyponatremia (Acute) Microcytic anemia (Acute) Hx of falling (Acute) DM type 2 (diabetes mellitus, type 2) (Acute) COPD (chronic obstructive pulmonary disease) (Chronic) Hyperlipidemia (Chronic) Hypertension (Chronic) Sciatica (Chronic) Chronic pain (Chronic) Medical History Medical History (Updated 12/05/24 @ 19:16 by Nneka Hilliard) Fall from ground level Compression fracture of L1 lumbar vertebra Colitis Rotator cuff tear Surgical History Surgical History H/O cervical spine surgery S/P hardware removal Status post open reduction and internal fixation (ORIF) of fracture Family History Family History (Updated 07/17/24 @ 15:16 by GARRET Juárez) Mother Osteoporosis Arthritis Cancer Anxiety Depressed Heart disease Hyperlipidemia Father Family history of lung cancer Other Suicide attempt Social History Social History Smoking Status: Current every day smoker If you are a former smoker, when did you quit? (Date/Year): n/a Number of Years Smoked: 40 How many cigarettes a day do you smoke? (20 cigarettes=1 Pk): 20 Second hand tobacco smoke exposure: Yes Do you dip or chew tobacco?: No Do you vape?: No Patient requests smoking cessation consult: No Initiate information on smoking cessation: No Living arrangement: At home Living Condition: With friend(s) and Other (Reportedly lives with two roomates.) Relationship: Living Situation Details: lives with room mate Level: Dependent Home Mobility Equipment: Cane, Wheeled walker and Wheelchair Do you feel safe in your home environment?: Yes Suffered physical, verbal, emotional, or financial abuse?: No History of Abuse: No ETOH Use: Beer Frequency: Daily Number of Amount/day: 15 ETOH Use Details: Per patient unsure of quantity due to changes in beer sized. Estimates 10-15 12oz beers nightly Substance Use: denies use Substance Use Details: tried but didn't like how it made her feel POLST Patient has POLST: Yes POLST Status: DNR (but may intubate, per POLST 2015) Review of Systems Status of ROS: unobtainable due to mental status Exam Exam Exam limited by AMS HENMT normocephalic, head/scalp traumatic (located on midline forehead) (contusion) and (hematoma), hearing grossly normal bilaterally and nasal mucous membranes normal Eyes PERRL, EOMs intact bilaterally, conjunctivae normal, no scleral icterus, no papilledema and no nystagmus Neck/C-Spine visual inspection normal and trachea midline Lymph no lymphadenopathy noted Chest inspection of chest normal and palpation of chest normal Respiratory breath sounds equal bilaterally, normal respiratory effort, clear to auscultation bilaterally, no wheezes, no rales, no retractions and no use of accessory muscles Cardiovascular normal heart rate noted, regular rhythm noted, no gallop, no rub, no murmur and no edema Gastrointestinal abdomen normal to inspection, abdomen soft to palpation, nontender to palpation, nondistended and normoactive bowel sounds Extremities normal to inspection and full ROM Neurology no movement abnormality noted, no focal motor deficit noted and speech abnormality noted tremor on exam Psychiatry orientation abnormal (unable to answer orientation questions) Skin skin color normal, ecchymosis noted and no jaundice Conclusion/Plan Problem List (1) Altered mental status: Plan: Patient presents for AMS. She is disoriented, unable to answer questions, able to loosely follow commands, no focal motor deficit. With her history of alcoholism, suspect withdrawal, malnutrition, vitamin deficieincy such as wernickes. Patient worked up for head injury given large ecchymosis and hematoma on forehead, but head and neck imaging are unremarkable. Vital signs WNL. Labs unremarkable, alcohol level of 102.8. Plan: Patient admitted for observation, will give banana bag with 400mg thiamine, seizure protocol with ativan 1mg IV push q30 PRN initiated. Social work consulted. Will recheck BMP, CBC tomorrow. If mentation does not improve after optimization of nutrition will consider MRI. (2) Alcoholism: Plan: Presents with AMS likely secondary to alcoholism, differential includes alcohol withdrawal, vitamin deficiency, malnutrition. Within the last two months patient has come to ER 6 times for alcohol related complications. At the last visit, she stated she drinks 15+ beers per day. Likely current AMS related to alcohol use. Alcohol level on toxiciology was 102.8. Plan: Banana bag with 400mg of thiamine ordered, seizure precautions ordered, ativan PRN ordered, social work consulted. Will need to head counselor on alcohol cessation after mentation has improved. (3) Diabetes: Plan: 10/19/24 A1c was 5.6%, patient is well controlled on current regimen. Patient regimen includes metformin 500mg BID. Plan: hold metformin 500mg BID while on obs, initiate sliding scale insulin, blood glucose checks ACHS. Plan Patient POLST in 2015 indicated DNR but able to intubate Lab Results Lab results reviewed: Yes 12/05/24 19:45 12/05/24 19:45 Diagnostic Imaging Results Diagnostic Imaging Results: positive Final report reviewed
[2024-12-05] MEDS: THIAMINE INJ 100 MG, MAGNESIUM SULFATE 2 GM, MULTIVITAMIN 10 ML, FOLIC ACID INJ 1 MG in... IV STA (19:25)
[2024-12-05] MEDS ORDERED: SODIUM CHLORIDE FLUSH 0.9% 10 ML SYRINGE IVP PRN (19:32)
[2024-12-05] MEDS ORDERED: ACETAMINOPHEN 325 MG TABLET PO PRN (19:32)
[2024-12-05] MEDS ORDERED: ONDANSETRON ODT 4 MG TABLET TL PRN (19:32)
[2024-12-05] MEDS ORDERED: ONDANSETRON 4 MG/2 ML VIAL IVP PRN (19:32)
[2024-12-05 19:50] LABS: BASOPHILS # (AUTO) 0.1 10^3/uL (0.0-0.1); BASOPHILS % (AUTO) 1.3 %; EOSINOPHILS # (AUTO) 0.2 10^3/uL (0.0-0.7); EOSINOPHILS % (AUTO) 3.8 %; HCT - HEMATOCRIT 42.6 % (37.0-47.0); LYMPHOCYTES # (AUTO) 1.9 10^3/uL (1.5-3.5); LYMPHOCYTES % (AUTO) 34.9 %; MEAN CORPUSCULAR HEMOGLOBIN 29.5 pg (27.0-31.0); MEAN CORPUSCULAR HGB CONC 32.9 g/dL (32.0-36.0); MEAN CORPUSCULAR VOLUME 89.9 fL (81.0-99.0); MEAN PLATELET VOLUME 9.3 fL (7.9-10.8); MONOCYTES # (AUTO) 0.3 10^3/uL (0.0-1.0); MONOCYTES % (AUTO) 5.8 %; NEUTROPHILS % (AUTO) 53.7 %; PLT - PLATELET COUNT 364 10^3/uL (130-450); RED BLOOD COUNT 4.74 10^6/uL (4.20-5.40); WHITE BLOOD COUNT 5.5 x10^3/uL (4.8-10.8)
[2024-12-05] MEDS: LORazepam 2 MG/ML VIAL IVP PRN (19:55)
[2024-12-05 19:56] LABS: PT - PROTHROMBIN TIME 11.5 secs (9.9-12.6)
[2024-12-05 20:07] LABS: ALBUMIN 3.8 g/dL (3.2-5.5); ALBUMIN/GLOBULIN RATIO 1.1 (1.0-2.2); BILIRUBIN,TOTAL 0.3 mg/dL (0.2-1.0); CALCIUM 8.6 mg/dL (8.5-10.3); CREATININE 0.3 mg/dL (0.6-1.3); POTASSIUM 3.1 mmol/L (3.5-4.5); TOTAL PROTEIN 7.3 g/dL (6.4-8.9)
[2024-12-05] MEDS: POTASSIUM CHLOR 10 MEQ/100 ML 10 MEQ/100 ML BAG IV SCH (21:03)
[2024-12-05] MEDS: LACTATED RINGERS 1,000 ML IV SCH (22:09)
[2024-12-05] MEDS: INSULIN LISPRO 300 UNIT/3 ML PEN SUBQ SCH (22:10)
[2024-12-06] MEDS: SODIUM CHLORIDE FLUSH 0.9% 10 ML SYRINGE IVP SCH
[2024-12-06 04:35] LABS: BASOPHILS # (AUTO) 0.1 10^3/uL (0.0-0.1); BASOPHILS % (AUTO) 0.9 %; EOSINOPHILS # (AUTO) 0.2 10^3/uL (0.0-0.7); EOSINOPHILS % (AUTO) 3.1 %; HCT - HEMATOCRIT 37.3 % (37.0-47.0); HGB - HEMOGLOBIN 12.1 g/dL (12.0-16.0); LYMPHOCYTES # (AUTO) 1.6 10^3/uL (1.5-3.5); LYMPHOCYTES % (AUTO) 25.1 %; MEAN CORPUSCULAR HEMOGLOBIN 29.7 pg (27.0-31.0); MEAN CORPUSCULAR HGB CONC 32.4 g/dL (32.0-36.0); MEAN CORPUSCULAR VOLUME 91.4 fL (81.0-99.0); MEAN PLATELET VOLUME 9.3 fL (7.9-10.8); MONOCYTES # (AUTO) 0.5 10^3/uL (0.0-1.0); MONOCYTES % (AUTO) 6.9 %; NEUTROPHILS # (AUTO) 4.1 10^3/uL (1.5-6.6); NEUTROPHILS % (AUTO) 63.4 %; PLT - PLATELET COUNT 296 10^3/uL (130-450); RED BLOOD COUNT 4.08 10^6/uL (4.20-5.40); WHITE BLOOD COUNT 6.5 x10^3/uL (4.8-10.8)
[2024-12-06 04:48] LABS: CALCIUM 7.8 mg/dL (8.5-10.3); CREATININE 0.3 mg/dL (0.6-1.3); POTASSIUM 3.7 mmol/L (3.5-4.5)
[2024-12-06] MEDS: PRENATAL VITAMIN TABLET PO SCH (08:15)
[2024-12-06] MEDS: THIAMINE 100 MG TABLET PO SCH (08:15)
[2024-12-06] MEDS: ENOXAPARIN 40 MG/0.4 ML SYRINGE SUBQ SCH (08:15)
[2024-12-06] MEDS ORDERED: FOLIC ACID IV SCH (09:00)
[2024-12-06] MEDS ORDERED: [UNRECOGNIZED DRUG - OTHER] IV SCH (09:00)
[2024-12-06] MEDS ORDERED: MULTIVITAMIN IV SCH (09:00)
[2024-12-06] MEDS ORDERED: THIAMINE IV SCH (09:00)
--- NOTE | 2024-12-06 09:10 | PHARMACY PROGRESS NOTE ---
Best Possible Medication History Admit Date and Time: 12/05/24 1845 Home Medications Medication Instructions Recorded Confirmed Type duloxetine 60 mg capsule,delayed 60 mg PO DAILY 11/21/23 12/06/24 History release albuterol sulfate 90 mcg/actuation 2 puff inhalation Q4H PRN 07/13/24 12/06/24 History aerosol inhaler shortness of breath or wheezing blood sugar diagnostic [True 07/13/24 11/30/24 History Metrix Glucose Test Strip] lancets 30 gauge (BD Microtainer 07/13/24 11/30/24 History Lancet) amlodipine 5 mg tablet (Norvasc) 5 mg PO QDAY #90 tabs 07/17/24 12/06/24 Rx aspirin 81 mg tablet,delayed See Rx Instructions .Route 08/28/24 12/06/24 Rx release .COMPLEX #100 tabs quetiapine 50 mg tablet 50 mg PO QPM #90 tabs 09/25/24 12/06/24 Rx gabapentin 300 mg capsule 300 mg PO TID #60 caps 10/05/24 12/06/24 Rx simvastatin 20 mg tablet 20 mg PO QPM #90 tabs 10/30/24 12/06/24 Rx ibuprofen 200 mg tablet 600 mg PO Q6H PRN pain 12/06/24 12/06/24 History Processed by: Pharmacy (Medication Reconciliation completed by Regional Climate Change Analyst) Medications reviewed in ED?: No Medication History completed: Yes Patient Interview: Completed Secondary Source(s): Insurance records (Patient states she stopped taking the metformin 500mg BID. She recently filled a 90 day supply last week, but I removed from home list due to patient stopping it.) [facility] Statement: As the person ultimately responsible for medication therapy, providers are able to order a medication from an existing home medication list in [facility] via the "Reconcile Routine" prior to Confirmation of that medication by help desk support. Such practice is discouraged except when the physician, in their clinical judgment, deems that a medical need exists for a medication without regard to previous use.
--- NOTE | 2024-12-06 11:15 | Discharge Summary ---
"Discharge Summary Admit Date: 12/05/24 Discharge Date: 12/06/24 Discharging Provider: Tamika Anders Primary Care Provider: [facility] Code Status: Attempt Resuscitation (Completed new POLST today, contact is daughter Isabella) DIAGNOSES Discharge Diagnoses with Status of Each Condition: Altered mental status: resolved Alcoholism: Chronic, not well controlled, discussed cessation Diabetes mellitus: Chronic, stable HPI History of Present Illness: Patient is a 64 year old female with history of alcoholism, type II DM, pulmonary hypertension, depression that presents for altered mental status. Patient has had multiple ER visits due to complications of alcoholism including hyponatremia, withdrawal. Due to AMS, history is limited. Per emergency department report, patient called EMS, but was found with bruising on her head, unable to answer EMS questions and with multiple empty alcohol containers in the trash can. ER labs are unremarkable, Head and neck CT unremarkable, alcohol level of 102.8, UA negative. Hospitalist was consulted for possible admission for AMS. CONSULTS | PROCEDURES Consultations: None Procedures: Cervical spine CT: No acute, displaced fracture or traumatic subluxation. Head CT: No acute intracranial pathology. HOSPITAL COURSE Hospital Course: Patient is a 64 year old female with history of CHF, COPD, Diabetes mellitus, alcoholism that presented for AMS, admitted for obs. Patient has been to ER 6 times in the last two months for alcohol related complications such as hyponatremia, withdrawal. At baseline she drinks 15 12 oz beers daily. She was discharged 10/30/24 after detoxing from alcohol inpatient. On admission she was disoriented, unable to answer questions, able to loosely follow commands, no focal motor deficit. Acute intracranial process ruled out via head and neck CT. With her history of alcoholism, suspect withdrawal, malnutrition, vitamin deficiency. Vital signs WNL. Labs unremarkable, alcohol level of 102.8 on admission. Patient admitted for observation, given banana bag with 400mg thiamine, seizure protocol with ativan 1mg IV push q30 PRN initiated. Social work consulted. Patient mentation improved consistently, this morning she is back to baseline, alert and oriented x 4. During hospital course she was placed on sliding scale insulin for her DMT2, last A1c 10/19/24 was 5.6%. Patient is not taking prescribed metformin at home. Today, discussed alcohol cessation with patient. Social work also discussed alcohol cessation with patient. Discussed multiple resources with patient, including online alcoholics anonymous given patient's transportation limitations, but she does not verbally commit to trying to quit or using any of the resources provided by social work. She has an outpatient correctional case records supervisor. Her PCP, Raiza Lunsford, is no longer seeing her due to patient's repeated no shows. Will contact [facility] to discuss follow up for alcoholism, DMT2, COPD, and right sided CHF. ALLERGIES Allergies Allergy/AdvReac Type Severity Reaction Status Date / Time ciprofloxacin Allergy Severe Hives Verified 12/05/24 16:31 Sulfa (Sulfonamide Allergy Mild oral Verified 12/05/24 16:31 Antibiotics) blisters MEDICATIONS Ambulatory Orders Medication Instructions Recorded Confirmed duloxetine 60 mg capsule,delayed 60 mg PO DAILY 11/21/23 12/06/24 release albuterol sulfate 90 mcg/actuation 2 puff inhalation Q4H PRN 07/13/24 12/06/24 aerosol inhaler shortness of breath or wheezing amlodipine 5 mg tablet (Norvasc) 5 mg PO QDAY #90 tabs 07/17/24 12/06/24 aspirin 81 mg tablet,delayed See Rx Instructions .Route 08/28/24 12/06/24 release .COMPLEX #100 tabs quetiapine 50 mg tablet 50 mg PO QPM #90 tabs 09/25/24 12/06/24 gabapentin 300 mg capsule 300 mg PO TID #60 caps 10/05/24 12/06/24 simvastatin 20 mg tablet 20 mg PO QPM #90 tabs 10/30/24 12/06/24 ibuprofen 200 mg tablet 600 mg PO Q6H PRN pain 12/06/24 12/06/24 naltrexone 50 mg tablet 25 mg (1/2 x 50 mg) PO DAILY #30 12/06/24 tabs thiamine mononitrate (vit B1) 100 100 mg PO DAILY #30 tabs 12/06/24 mg tablet PHYSICAL EXAM AT DISCHARGE General Appearance: positive No acute distress and Alert Eyes Bilateral: positive Normal inspection, PERRL, EOMI and Conjunctivae nml ENT: positive ENT inspection nml Neck: positive Nml inspection and Trachea midline Respiratory: positive Chest non-tender, No respiratory distress and Breath sounds nml Cardiovascular: positive Regular rate & rhythm, No murmur and No gallop Abdomen: positive Non-tender and No distention Skin: positive Color nml, Warm, Dry and Other (ecchymosis on forehead) Extremities: positive Full ROM and No pedal edema Neurologic/Psychiatric: positive Oriented x3, CN's nml (2-12) and Motor nml LABS 12/06/24 04:15 12/06/24 04:15 Discharge Plan Discharge Patient Disposition: 01 Home, Self Care Condition: Stable Prescriptions: New thiamine mononitrate (vit B1) 100 mg Tablet 100 mg PO DAILY Qty: 30 3RF naltrexone 50 mg tablet 25 mg PO DAILY Qty: 30 2RF Rx Instructions: 1/2 tab daily for 2 days, then 1 tab daily. Continued aspirin 81 mg tablet,delayed release (DR/EC) See Rx Instructions .ROUTE .COMPLEX Qty: 100 3RF Dose Instruction: TAKE 1 TABLET BY MOUTH DAILY Rx Instructions: TAKE 1 TABLET BY MOUTH DAILY quetiapine 50 mg tablet 50 mg PO QPM Qty: 90 2RF simvastatin 20 mg tablet 20 mg PO QPM Qty: 90 3RF duloxetine 60 MG capsule,delayed release(DR/EC) 60 mg PO DAILY gabapentin 300 mg capsule 300 mg PO TID Qty: 60 0RF ibuprofen 200 mg tablet 600 mg PO Q6H PRN (Reason: pain) Rx Instructions: Moderate Pain (Level 4-6) albuterol sulfate 90 mcg/actuation HFA aerosol inhaler 2 puff inhalation Q4H PRN (Reason: shortness of breath or wheezing) Rx Instructions: Inhale 2 puff using inhaler every four hours as needed amlodipine [Norvasc] 5 mg tablet 5 mg PO QDAY Qty: 90 4RF Discontinued (DME) blood sugar diagnostic [True Metrix Glucose Test Strip] .Route Rx Instructions: Use twice a day to check blood sugar (DME) lancets [BD Microtainer Lancet] 30 gauge misc See Rx Instructions .Route Rx Instructions: Use to monitor blood sugar twice a day Diet: Regular Interventions: Belongings Inventory Last Done: 12/05/24 22:43 Discharge Last Done: 12/06/24 14:18 Discharge Checklist - Nursing Last Done: 12/06/24 14:18 Health Concerns: You came in to the hospital with a slightly elevated alcohol level and lots of confusion. Your confusion has resolved overnight and you are back to your baseline. You have had multiple visits related to your alcohol use. We have discussed that stopping drinking is probably the best thing. I advise you to follow the written plan given to you by social work to call your county social service liaison when you are having problems. Naltrexone is a medication that can help curb alcohol cravings. I would encourage you to try to use this. Alcohol is a difficult addiction but we believe and you and think that you can conquer this. For new primary care I would recommend that you see [facility]. Call them and get an appointment. Print Language: Indonesian Patient Instructions: Addiction Alcohol Stand Alone Forms: PCP List Follow-up Care: Raiza Lunsford ARNP [Primary Care Provider] - MARCELO TAO PA [Physician No Access] -"
[2024-12-06] MEDS: IBUPROFEN 400 MG TABLET PO PRN (11:23)
--- NOTE | 2024-12-06 12:26 | ADVANCE CARE PLANNING NOTE ---
Advance Care Planning Planning Encounter Date: 12/06/24 Purpose: review previous POLST Parties in Attendance: Tamika Anders PA-C, patient, DEQUAN Cottrell Decisional Capacity of the Patient: alert and oriented with insight into her situation. Diagnosis for Encounter (1) Altered mental status: (2) Alcoholism: (3) Diabetes: Encounter Subjective/Patient's Story: She was admitted to this facility for greater than a week earlier this year and went through alcohol withdrawal and had several alcohol related injuries. She has not been able to stop drinking. She does not express the desire to stop drinking. She has been given resources for alcohol cessation. She lives with a roommate and spends much of her time in her room drinking alcohol. She wants to continue to drink and smoke. She is approved for [facility] caregiver hours but has had difficulty obtaining caregiver secondary to her tobacco use. She has a previous POLST on file here at the hospital in 2016. It states do not attempt resuscitation, full treatment.She is not sure if that is what she wants. Objective/Medical Story: Alcoholism which is not well-controlled. She feels powerless over her drinking and cannot be convinced otherwise. She has had multiple emergency department visits for alcohol-related incidents. I have reviewed with her the ramifications of her alcohol abuse to include organ failure coagulopathy combined with trauma related to alcohol use which can be deadly. She understands this. She has recently lost her primary care provider secondary to multiple no-shows for visits. Goals of Care: Substance abuse disorder which is difficult to control in a patient who exhibit signs of depression and is falling through the cracks in terms of assistance with her addiction. She still meets criteria to live independently and will continue to do so. Plan: POLST updated today. With attempt resuscitation and full treatment. Most importantly the discussion was had about who would be Marcia's medical decision-maker should she be unable to make her own medical decisions. She is largely estranged from both of her daughters but names her oldest daughter Isabella as the person to call. She does have Isabella's number and her phone and has tried to develop a relationship with her although this has failed secondary to the patient's alcoholism. Code Status: Attempt Resuscitation Time spent on advance care plannin
[2024-12-06 12:50] VITALS: BP 153/76; TEMP 97.2; O2SAT 92
[2024-12-06] MEDS: NICOTINE 21 MG PATCH TOP SCH (12:59)
== END 2024-12-06 14:15 | disposition home or self-care (01) ==
LOC: ED 16:18 → MS2 16:18
PROVIDERS: ADMIT Nurse Practitioner Acute Care; ATTEND Nurse Practitioner Acute Care
DX: F17.210 Nicotine dependence, cigarettes, uncomplicated; F32.A Depression, unspecified; E11.9 Type 2 diabetes mellitus without complications; I50.9 Heart failure, unspecified; I11.0 Hypertensive heart disease with heart failure; Z91.128 Patient's intentional underdosing of medication regimen for other reason; T38.3X6A Underdosing of insulin and oral hypoglycemic [antidiabetic] drugs, initial encounter; I27.20 Pulmonary hypertension, unspecified; I45.2 Bifascicular block; R58 Hemorrhage, not elsewhere classified; Y90.5 Blood alcohol level of 100-119 mg/100 ml; F10.20 Alcohol dependence, uncomplicated; J44.9 Chronic obstructive pulmonary disease, unspecified; R41.82 Altered mental status, unspecified

== ENCOUNTER 2025-08-21 17:57 | Inpatient (IN) ==
--- NOTE | 2025-08-21 17:58 | ED Physician Documentation ---
History of Present Illness Stated complaint Stated Complaint: ETOH/WELFARE CHECK Chief complaint Chief Complaint: General History obtained from History obtained from: Patient and EMS Additonal information Additional information: 57-year-old woman presents by ambulance from home. [facility] social sciences chair called EMS because she has been on a cruz and had several falls. She was noted to be moderately hypoxic for EMS but she does have oxygen at home and presume she has COPD with ongoing smoking. She is bruising all over especially the left side of the face and forehead and both wrists and complains of body wide pain. She is not interested in going to detox. Meds/Allgy Home Medications Ambulatory Orders Medication Instructions Recorded Confirmed albuterol sulfate 90 mcg/actuation 2 puff inhalation Q 4H PRN 07/13/24 06/29/25 aerosol inhaler shortness of breath or wheez ing simvastatin 20 mg tablet 20 mg PO QPM #90 tabs 08/21/25 metformin 500 mg tablet 500 mg PO BID Diabetes #180 tabs 05/07/25 08/21/25 ergocalciferol (vitamin D2) 1,250 1,250 mcg PO QWEEK # 13 caps 06/14/25 06/29/25 mcg (50,000 unit) capsule (Vitamin D2) duloxetine 20 mg capsule,delayed 20 mg PO BID #60 caps 06/29/25 07/13/25 release Held on 07/13/25. Instructions: Per Provider omeprazole 20 mg capsule,delayed 20 mg PO QDAY #30 cap s 06/29/25 08/21/25 release gabapentin 300 mg capsule 300 mg PO TID #60 caps 07/10 duloxetine 60 mg capsule,delayed 60 mg PO QPM #30 caps 07/13/25 08/21/25 release quetiapine 50 mg tablet 50 mg PO QPM #30 tabs 08/21/25 trazodone 50 mg tablet 50 mg PO HS #30 tabs 5 08/21/25 amlodipine 5 mg tablet (Norvasc) 5 mg PO QDAY #90 tabs 08/07/25 08/21/25 lamotrigine 100 mg tablet 200 mg PO QPM 08/21/2508/21 Allergies Allergies Allergy/AdvReac Type Severity Reaction Status Date / Time ciprofloxacin Allergy Severe Hives Verified 08/21/25 18:00 Sulfa (Sulfonamide Allergy Mild oral Verified 08/21/25 18:00 Antibiotics) blisters codeine Allergy unknown Verified 08/21/25 18:00 [facility] Active Problems All Active Problems (Updated 08/21/25 @ 19:08 by Chris Badillo MD) Head injury (Acute) Marijuana use (Acute) Encounter to establish care with new provider (Acute) Alcohol use disorder, severe, dependence (Acute) Bipolar 1 disorder, depressed, moderate (Acute) Hip pain, bilateral (Acute) Bilateral chronic knee pain (Acute) Type 2 diabetes mellitus (Chronic) Chest pain (Chronic) Vitamin D deficiency (Chronic) Migraine headache (Chronic) Other hereditary corneal dystrophies, 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, left eye (Chronic) Physical deconditioning (Chronic) Depression (Chronic) Congestive heart failure (Chronic 12/21/18) Chronic low back pain (Chronic 06/23/19) Cataracts, bilateral (Chronic 12/13/18) Tremor (Chronic 07/15/17) Shoulder pain, bilateral (Chronic 05/31/19) Rheumatoid arthritis (Chronic 12/21/18) Restless leg syndrome (Chronic 03/17/19) Pulmonary hypertension (Chronic 08/03/18) PTSD (post-traumatic stress disorder) (Chronic 05/29/16) Peripheral neuropathy (Chronic 03/17/21) Obstructive sleep apnea (Chronic 05/29/16) Obesity (Chronic 05/04/17) Nicotine dependence, cigarettes, uncomplicated (Chronic 08/19/16) Neck pain, chronic (Chronic 06/23/19) Lung nodule (Chronic 05/29/16) Interstitial lung disease (Chronic 05/29/16) Incontinence (Chronic 05/29/16) GERD (gastroesophageal reflux disease) (Chronic 05/29/16) Frequent falls (Chronic 07/15/17) Essential hypertension, benign (Chronic 08/31/23) Borderline personality disorder (Chronic 05/29/16) Crawford's esophagus (Chronic 05/29/16) Allergic rhinitis (Chronic 11/18/17) Fibromyalgia (Chronic) Hyponatremia (Chronic) Microcytic anemia (Chronic) COPD (chronic obstructive pulmonary disease) (Chronic) Hyperlipidemia (Chronic) Sciatica (Chronic) Chronic pain (Chronic) Medical History Medical History (Updated 08/21/25 @ 19:08 by Chris Badillo MD) Anxiety Alcoholism Bipolar II disorder (05/29/16) PTSD (post-traumatic stress disorder) Anxiety and depression Alopecia (04/28/17) Alcohol withdrawal Fall from ground level Compression fracture of L1 lumbar vertebra Colitis Rotator cuff tear Surgical History Surgical History H/O cervical spine surgery S/P hardware removal Status post open reduction and internal fixation (ORIF) of fracture Family History Family History (Updated 07/17/24 @ 15:16 by GARRET Juárez) Mother Osteoporosis Arthritis Cancer Anxiety Depressed Heart disease Hyperlipidemia Father Family history of lung cancer Other Suicide attempt Social History Social History (Updated 08/21/25 @ 18:20 by Genaro Galindo, RN) Smoking Status: Current every day smoker Number of Years Smoked: 40 How many cigarettes a day do you smoke? (20 cigarettes=1 Pk): 30 Second hand tobacco smoke exposure: Yes Do you dip or chew tobacco?: No Do you vape?: No Patient requests smoking cessation consult: No Initiate information on smoking cessation: No Living arrangement: At home Living Condition: Alone Support Person: Yes Living Situation Details: lives with room mate Physical Activity: None Level: Assisted Do you feel safe in your home environment?: Yes History of physical, verbal, emotional, or financial abuse?: No ETOH Use: Beer and Liquor Frequency: Daily ETOH - Additional Notes: Per patient unsure of quantity due to changes in beer sized. Estimates 10-15 12oz beers nightly Substance Use: denies use and cannabis (any form) Are you sexually active?: Yes Exam Exam Vital Signs: Vital Signs x48h Temp Pulse Resp BP Pulse Ox 08/21/25 20:28 96 16 145/93 H 96 08/21/25 18:01 36.5 C 104 H 20 140/76 H 92 Constitutional She is somewhat disheveled and smells of both alcohol and tobacco. HENMT Significant bruising of especially over the left forehead and less so the left face. Eyes PERRL and EOMs intact bilaterally Neck/C-Spine cervical spine nontender and cervical full ROM noted Respiratory breath sounds equal bilaterally and normal respiratory effort Cardiovascular normal heart rate noted and regular rhythm noted Gastrointestinal abdomen soft to palpation and nontender to palpation Extremities Bruising over the dorsum of both wrist with mild tenderness but full range of motion. The remainder of her extremities are nontender with full range of motion of all major joints. Neurology GCS 15 Results Vitals Vitals: Vital Signs - 24 hr 08/21/25 18:01 08/21/25 18:41 08/21/25 20:28 Temperature 36.5 C Temperature Source Temporal Artery Scan Pulse Rate 104 H 96 Respiratory Rate 20 16 Blood Pressure 140/76 H 145/93 H O2 Saturation 92 96 O2 Source Room air Room air Pain Intensity 8 8 9 Oxygen O2 Source [With Activity] Room air O2 Source Room air Labs Labs: Laboratory Tests 08/21/25 08/21/25 18:05 18:14 WBC 8.0 RBC 4.87 Hgb 12.8 Hct 39.7 MCV 81.5 MCH 26.3 L MCHC 32.2 RDW 15.8 H Plt Count 181 MPV 8.8 Neut # (Auto) 5.7 Lymph # (Auto) 1.6 Allen # (Auto) 0.6 Eos # (Auto) 0.0 Baso # (Auto) 0.1 Absolute Nucleated RBC 0.00 Nucleated RBC % 0.0 Sodium 130 L Potassium 3.8 Chloride 93 L Carbon Dioxide 23 Anion Gap 14.0 H BUN 5 L Creatinine 0.3 L Estimated GFR (MDRD) 224 Glucose 97 Calcium 8.0 L Magnesium 2.0 Total Bilirubin 0.5 AST 84 H ALT 49 Alkaline Phosphatase 89 Total Creatine Kinase 1012 H* Total Protein 6.9 Albumin 4.0 Globulin 2.9 Albumin/Globulin Ratio 1.4 Urine Opiates Screen NEGATIVE Ur Buprenorphine Scrn NEGATIVE Ur Oxycodone Screen NEGATIVE Urine Methadone Screen NEGATIVE Urine Fentanyl Screen Negative Ur Barbiturates Screen NEGATIVE Ur Tricyclics Screen NEGATIVE Ur Phencyclidine Scrn NEGATIVE Ur Amphetamine Screen NEGATIVE U Methamphetamines Scrn NEGATIVE U Benzodiazepines Scrn NEGATIVE Urine Cocaine Screen NEGATIVE U Cannabinoids Screen NEGATIVE Ur Drug Screen Comment CUTOFF CONC BELOW: Ethyl Alcohol 405.4 Rads (name of study) CT of the head and cervical spine were notable for a left forehead hematoma without intracranial injury or spinal injury.: Relevant Findings:: Final report received and EMP independent interpretation of test PD Medical Decision Making ED course ED course: 65-year-old woman brought in by ambulance with alcohol intoxication, poor self- care. 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 She has very mild rhabdomyolysis and mild hyponatremia. No indication for admission. CT imaging of the head and neck were without traumatic findings except a scalp hematoma. Given elevated blood alcohol and the fact that she has no support she will probably need to board in the emergency department overnight with consideration for social work consultation in the morning. Anticipating a long time in the emergency department I ordered a nicotine patch, thiamine, and a diet for her. Bilateral wrist x-rays were negative. Independently interpreted by me. Given the severely elevated alcohol level she will be boarding overnight in the emergency department with consideration for social work consultation in the morning although she is not desirous of detox. Care to overnight emergency physician at 11 PM shift change. Discharge Plan Discharge Condition: Stable Clinical Impression: Alcohol use disorder, severe, dependence, Frequent falls, Head injury Prescriptions: No Action simvastatin 20 mg tablet 20 mg PO QPM Qty: 90 3RF metformin 500 mg tablet 500 mg PO BID Qty: 180 3RF Rx Instructions: Take 1 tablet by mouth twice daily ergocalciferol (vitamin D2) [Vitamin D2] 1,250 mcg (50,000 unit) capsule 1,250 mcg PO QWEEK Qty: 13 0RF gabapentin 300 mg capsule 300 mg PO TID Qty: 60 3RF amlodipine [Norvasc] 5 mg tablet 5 mg PO QDAY Qty: 90 3RF Rx Instructions: Take 1 tablet by mouth once a day lamotrigine 100 mg tablet 200 mg PO QPM Rx Instructions: After 50mg dose x 14 days. Take 1 tablet in the evening x 7 days, then increase to 2 tablets daily in the evening. trazodone 50 mg tablet 50 mg PO HS Qty: 30 2RF duloxetine 60 mg capsule,delayed release(DR/EC) 60 mg PO QPM Qty: 30 2RF quetiapine 50 mg tablet 50 mg PO QPM Qty: 30 2RF omeprazole 20 mg capsule,delayed release(DR/EC) 20 mg PO QDAY Qty: 30 0RF duloxetine 20 mg capsule,delayed release(DR/EC) 20 mg PO BID Qty: 60 0RF albuterol sulfate 90 mcg/actuation HFA aerosol inhaler 2 puff inhalation Q4H PRN (Reason: shortness of breath or wheezing) Rx Instructions: Inhale 2 puff using inhaler every four hours as needed Activity Restrictions/Additional Instructions: You are seen today because the [facility] social sciences chair brought you in. You had a blood alcohol of 405 Print Language: Yi Patient Instructions: ED Alcohol Intoxication, ED Head Injury (Adult), ED Alcohol Abuse Stand Alone Forms: PCP List
--- OUTSIDE RECORDS SUMMARY | 2025-08-21 18:12 | EXTERNAL MEDICAL SUMMARY RPT | Continuity of Care Document ---
Author Organization [facility] Address [address] [place] [id number] Phone Problems date description facility 2025-05-25 08:52 [facility]icidal ideations [facility] 2025-05-30 10:19 Anxiety disorder, unspecified [facility] 2025-05-30 11:14 Anemia, unspecified [facility] 2025-05-30 11:14 Type 2 diabetes mellitus withou t complications [facility] 11:14 Hypo-osmolality and hyponatremi a [facility] 2025-05-30 11:14 Acidosis, unspecified [facility] 2025-05-30 11:14 Hypokalemia [facility] 2025-05-30 11:14 Alcohol abuse with intoxication , unspecified [facility] 2025-05-30 11:14 Alcohol dependence with withdra wal, unspecified [facility] 2025-05-30 11:14 Alcohol use, unspecified, uncom plicated [facility] 2025-05-30 11:14 Alcohol use, unspeci fied with withdrawal, uncomplicated [facility] 2025-05-30 11:14 Alcohol use, unspecified with w ithdrawal, unspecified [facility] 2025-05-30 11:14 Depression, unspecified [facility] 2025-05-30 11:14 Acute pharyngitis, unspecified [facility] 2025-05-30 11:14 Chronic obstructive pulmonary d isease, unspecified [facility] 2025-05-30 11:14 Erythema intertrigo [facility] 2025-05-30 11:14 Pain in left hip [facility] 2025-05-30 11:14 Urinary tract infection, site n ot specified [facility] 2025-05-30 11:14 Nausea with vomiting, unspecifi ed [facility] 2025-05-30 11:14 Other skin changes [facility] 2025-05-30 11:14 [facility]or, [facility]30 11:14 Cramp and spasm [facility] 2025-05-30 11:14 Hematuria, unspecified [facility] 2025-05-30 11:14 Altered mental status, unspecif ied [facility] 2025-05-30 11:14 Suicidal ideations [facility] 2025-05-30 11:14 Other symptoms and s igns involving appearance and behavior [facility] 2025-05-30 11:14 Headache, unspecified [facility] 2025-05-30 11:14 Other malaise [facility] 2025-05-30 11:14 Fracture of unspecif ied metatarsal bone(s), unspecified foot, initial encounter for closed fracture [facility] 2025-05-30 11:14 Unspecified fracture of left foot, initial encounter for closed fracture [facility] 2025-05-30 11:14 Unspecified fracture of unspecified toe(s), initial encounter for closed fracture [facility] 2025-05-30 11:14 Unspecified injury of right dia t, initial encounter [facility] 2025-05-30 11:14 History of falling [facility] 2025-06-07 15:18 Bipolar II disorder [facility] 2025-06-07 15:18 Depression, unspecified [facility] 2025-06-07 15:18 Anxiety disorder, unspecified W [facility] 2025-06-07 15:18 Borderline personality disorder [facility] 2025-06-07 15:18 Heart failure, unspecified id [facility] 2025-06-07 15:18 Chest pain, unspecified id[facility] 2025-06-08 09:15 Heart failure, unspecified [facility] 2025-06-08 09:15 Chest pain, unspecified [facility] 2025-06-08 11:36 Heart failure, unspecified id bey [facility] 2025-06-08 11:36 Chest pain, unspecified [facility] 2025-06-08 11:52 Heart failure, unspecified [facility] 2025-06-08 11:52 Chest pain, unspecified [facility] 2025-06-08 12:09 Heart failure, unspecified [facility] 2025-06-08 12:09 Chest pain, unspecified [facility] 2025-06-14 00:05 Type 2 diabetes mellitus withou t complications idbey [facility] 2025-06-14 00:05 Vitamin D deficiency, unspecifi ed [facility] 2025-06-14 00:05 Hyperlipidemia, unspecified Whi dbey [facility] 2025-06-14 00:05 Essential (primary) hypertensio n [facility] 2025-06-14 00:05 Heart failure, unspecified id [facility] 2025-06-14 00:05 Cardiomegaly [facility] 2025-06-14 08:21 Cardiomegaly idjak [facility] 2025-06-18 11:59 Heart failure, unspecified id [facility] 2025-06-18 11:59 Chest pain, unspecified idbey [facility] 2025-06-22 14:09 Anxiety disorder, unspecified [facility] 2025-06-28 13:49 Heart failure, unspecified [facility] 2025-06-28 13:49 Chest pain, unspecified idbey [facility] 2025-06-29 00:03 Heart failure, unspecified id jak [facility] 2025-06-29 00:03 Chest pain, unspecified idbey [facility] 2025-06-29 14:08 Heart failure, unspecified [facility] 2025-06-29 14:08 Chest pain, unspecified [facility] 2025-06-29 14:22 Dysuria [facility] 2025-06-29 14:35 Dysuria [facility] 2025-06-30 00:05 Dysuria [facility] 2025-07-03 13:07 Anemia, unspecified [facility] 2025-07-03 13:07 Type 2 diabetes mellitus withou t complications [facility] 2025-07-03 13:07 Hypo-osmolality and hyponatremi a [facility] 2025-07-03 13:07 Acidosis, unspecified [facility] 2025-07-03 13:07 Hypokalemia [facility] 2025-07-03 13:07 Alcohol abuse with intoxication , unspecified [facility] 2025-07-03 13:07 Alcohol dependence with withdra wal, unspecified [facility] 2025-07-03 13:07 Alcohol use, unspecified, uncom plicated [facility] 2025-07-03 13:07 Alcohol use, unspeci fied with withdrawal, uncomplicated [facility] 2025-07-03 13:07 Alcohol use, unspecified with w ithdrawal, unspecified [facility] 2025-07-03 13:07 Depression, unspecified [facility] 2025-07-03 13:07 Acute pharyngitis, unspecified [facility] 2025-07-03 13:07 Chronic obstructive pulmonary d isease, unspecified [facility] 2025-07-03 13:07 Erythema intertrigo [facility] 2025-07-03 13:07 Pain in left hip [facility] 2025-07-03 13:07 Urinary tract infection, site n ot specified [facility] 2025-07-03 13:07 Nausea with vomiting, unspecifi ed [facility] 2025-07-03 13:07 Other skin changes [facility] 2025-07-03 13:07 Tremor, unspecified [facility] 2025-07-03 13:07 Cramp and spasm [facility] 2025-07-03 13:07 Dysuria [facility] 2025-07-03 13:07 Hematuria, unspecified [facility] 2025-07-03 13:07 Altered mental status, unspecif ied [facility] 2025-07-03 13:07 Suicidal ideations [facility] 2025-07-03 13:07 Other symptoms and s igns involving appearance and behavior [facility] 2025-07-03 13:07 Headache, unspecified [facility] 2025-07-03 13:07 Other malaise [facility] 2025-07-03 13:07 Fracture of unspecif ied metatarsal bone(s), unspecified foot, initial encounter for closed fracture [facility] 2025-07-03 13:07 Unspecified fracture of left foot, initial encounter for closed fracture [facility] 2025-07-03 13:07 Unspecified fracture of unspecified toe(s), initial encounter for closed fracture [facility] 2025-07-03 13:07 Unspecified injury of right dia t, initial encounter [facility] 2025-07-03 13:07 History of falling [facility] 2025-07-03 14:57 Dysuria [facility] 2025-07-17 09:15 Anemia, unspecified [facility] 2025-07-17 09:15 Type 2 diabetes mellitus withou t complications [facility] 2025-07-17 09:15 Hypo-osmolality and hyponatremi a [facility] 2025-07-17 09:15 Acidosis, unspecified [facility] 2025-07-17 09:15 Hypokalemia [facility] 2025-07-17 09:15 Alcohol abuse with intoxication , unspecified [facility] 2025-07-17 09:15 Alcohol dependence, uncomplicat ed [facility] 2025-07-17 09:15 Alcohol dependence with withdra wal, unspecified [facility] 2025-07-17 09:15 Alcohol use, unspecified, uncom plicated [facility] 2025-07-17 09:15 Alcohol use, unspeci fied with withdrawal, uncomplicated [facility] 2025-07-17 09:15 Alcohol use, unspecified with w ithdrawal, unspecified [facility] 2025-07-17 09:15 Cannabis use, unspecified, unco mplicated [facility] 2025-07-17 09:15 Nicotine dependence, cigarettes , uncomplicated [facility] 2025-07-17 09:15 Bipolar disorder, current episo de depressed, moderate [facility] 2025-07-17 09:15 Depression, unspecified [facility] 2025-07-17 09:15 Post-traumatic stress disorder, unspecified [facility] 2025-07-17 09:15 Borderline personality disorder [facility] 2025-07-17 09:15 Acute pharyngitis, unspecified [facility] 2025-07-17 09:15 Chronic obstructive pulmonary d isease, unspecified [facility] 2025-07-17 09:15 [facility] 2025-07-17 09:15 Pain in left hip [facility] 2025-07-17 09:15 Urinary tract infection, site n ot specified [facility] 2025-07-17 09:15 Nausea with vomiting, unspecifi ed [facility] 2025-07-17 09:15 Other skin changes [facility] 2025-07-17 09:15 Tremor, unspecified [facility] 2025-07-17 09:15 Cramp and spasm [facility] 2025-07-17 09:15 Hematuria, unspecified [facility] 2025-07-17 09:15 Altered mental status, unspecif ied [facility] 2025-07-17 09:15 Suicidal ideations [facility] 2025-07-17 09:15 Other symptoms and s igns involving appearance and behavior [facility] 2025-07-17 09:15 Headache, unspecified [facility] 2025-07-17 09:15 Other malaise [facility] 2025-07-17 09:15 Fracture of unspecif ied metatarsal bone(s), unspecified foot, initial encounter for closed fracture [facility] 2025-07-17 09:15 Unspecified fracture of left foot, initial encounter for closed fracture [facility] 2025-07-17 09:15 Unspecified fracture of unspecified toe(s), initial encounter for closed fracture [facility] 2025-07-17 09:15 Unspecified injury of right dia t, initial encounter [facility] 2025-07-17 09:15 Persons encountering health services in other specified circumstances [facility] 2025-07-17 09:15 History of falling [facility] 2025-07-17 09:21 Anemia, unspecified [facility] 2025-07-17 09:21 Type 2 diabetes mellitus withou t complications [facility] 2025-07-17 09:21 Hypo-osmolality and hyponatremi a [facility] 2025-07-17 09:21 Acidosis, unspecified [facility] 2025-07-17 09:21 Hypokalemia [facility] 2025-07-17 09:21 Alcohol abuse with intoxication , unspecified [facility] 2025-07-17 09:21 Alcohol dependence, uncomplicat ed [facility] 2025-07-17 09:21 Alcohol dependence with withdra wal, unspecified [facility] 2025-07-17 09:21 Alcohol use, unspecified, uncom plicated [facility] 2025-07-17 09:21 Alcohol use, unspeci fied with withdrawal, uncomplicated [facility] 2025-07-17 09:21 Alcohol use, unspecified with w ithdrawal, unspecified [facility] 2025-07-17 09:21 Cannabis use, unspecified, unco mplicated [facility] 2025-07-17 09:21 Nicotine dependence, cigarettes , uncomplicated [facility] 2025-07-17 09:21 Bipolar disorder, current episo de depressed, moderate [facility] 2025-07-17 09:21 Depression, unspecified [facility] 2025-07-17 09:21 Post-traumatic stress disorder, unspecified [facility] 2025-07-17 09:21 Borderline personality disorder [facility] 2025-07-17 09:21 Acute pharyngitis, unspecified [facility] 2025-07-17 09:21 Chronic obstructive pulmonary d isease, unspecified [facility] 2025-07-17 09:21 Erythema intertrigo [facility] 2025-07-17 09:21 Pain in left hip [facility] 2025-07-17 09:21 Urinary tract infection, site n ot specified [facility] 2025-07-17 09:21 Nausea with vomiting, unspecifi ed [facility] 2025-07-17 09:21 Other skin changes [facility] 2025-07-17 09:21 Tremor, unspecified [facility] 2025-07-17 09:21 Cramp and spasm [facility] 2025-07-17 09:21 Hematuria, unspecified [facility] 2025-07-17 09:21 Altered mental status, unspecif ied [facility] 2025-07-17 09:21 Suicidal ideations [facility] 2025-07-17 09:21 Other symptoms and s igns involving appearance and behavior [facility] 2025-07-17 09:21 Headache, unspecified [facility] 2025-07-17 09:21 Other malaise [facility] 2025-07-17 09:21 Fracture of unspecif ied metatarsal bone(s), unspecified foot, initial encounter for closed fracture [facility] 2025-07-17 09:21 Unspecified fracture of left foot, initial encounter for closed fracture [facility] 2025-07-17 09:21 Unspecified fracture of unspecified toe(s), initial encounter for closed fracture [facility] 2025-07-17 09:21 Unspecified injury of right dia t, initial encounter [facility] 2025-07-17 09:21 Persons encountering health services in other specified circumstances [facility] 2025-07-17 09:21 History of falling [facility] Results/Labs test date facility value unit notes Result panel 1 SALICYLATE 2025-05-23 13:18 [facility] < 1.5 mg/dl Salicyalte Theraputic Range <30mg/dL As of April 2023 testing method has changed, this may include reference ranges. ETOH - ETHANOL 2025-05-23 13:18 [facility] < 10.0 mg/dl Blood Alcohol Levels Level Sporadic Drinkers Chronic drinkers == 100 mg/dL Legally intoxicated* Minimal signs 200-250 mg/dL Alertness lost, Effort needed to becoming lethargic maintain emotional and motor control 300-350 mg/dL Stupor to coma Drowsy and slow >500 mg/dL Possible Coma *The legal definition of intoxication varies. This assy is for medical decision making only. As of April 2023 testing method has changed, this may include reference ranges. NUCLEATED RED BLOOD CELLS AUTO 2025-05-23 13:18 [facility] 0.0 /100wbc (missing) NRBC ABSOLUTE COUNT (AUTO) 2025-05-23 13:18 [facility] 0.00 x10 3/ul (missing) BASOPHILS # (AUTO) 2025-05-23 13:18 [facility] 0.1 10 3/ul (missing) ACETAMINOPHEN 2025-05-23 13:18 [facility] 0.1 ug/ml Acetaminophen Therapeutic concentration 10-30 ug/mLHepatotoxicity concentrations - >150 ug/mL at 4hr after ingestion >75 ug/mL at 8hr after ingestion >40 ug/mL at 12hr after ingestion As of April 2023 testing method has changed, this may include reference ranges. EOSINOPHILS # (AUTO) 2025-05-23 13:18 [facility] 0.2 10 3/ul (missing) BILIRUBIN,TOTAL 2025-05-23 13:18 [facility] 0.3 mg/dl As of April 2023 testing method has changed, this may include reference ranges. MONOCYTES # (AUTO) 2025-05-23 13:18 [facility] 0.4 10 3/ul (missing) CREATININE 2025-05-23 13:18 [facility] 0.4 mg/dl As of April 2023 testing method has changed, this may include reference ranges. ALBUMIN/GLOBULIN RATIO 2025-05-23 13:18 [facility] 1.3 (missing) (missing) LYMPHOCYTES # (AUTO) 2025-05-23 13:18 [facility] 1.8 10 3/ul (missing) CHLORIDE 2025-05-23 13:18 [facility] 100 mmol/l As of April 2023 testing method has changed, this may include reference ranges. HGB - HEMOGLOBIN 2025-05-23 13:18 [facility] 13.9 g/dl (missing) SODIUM 2025-05-23 13:18 [facility] 134 mmol/l (missing) RED CELL DISTRIBUTION WIDTH 2025-05-23 13:18 [facility] 16.0 % (missing) GFR - MDRD 2025-05-23 13:18 [facility] 161 (missing) The IDMS-traceable MDRD Study Equation has been validated extensively in and populations between the ages of 18 and 70 with impaired kidney function (eGFR < 60 mL/min/1.73m2) and has shown good performance for patients with all common causes of kidney disease. Although this equation has not been validated for patients older than 70, an MDRD-derived eGFR may still be a useful tool for providers caring for patients older than 70. References: http://www.nkdep.ni h.gov/lab-evaluatio n/gfr/creatinine-st and ardization, last updated December 2011. THYROID STIMULATING HORMONE 2025-05-23 13:18 [facility] 2.18 uiu/ml (missing) ALT ALANINE AMINOTRANSFERASE 2025-05-23 13:18 [facility] 21 iu/l As of April 2023 testing method has changed, this may include reference ranges. AST ASPARTATE AMINOTRANSFERASE 2025-05-23 13:18 [facility] 23 iu/l As of April 2023 testing method has changed, this may include reference ranges. CARBON DIOXIDE - CO2 2025-05-23 13:18 [facility] 26 mmol/l As of April 2023 testing method has changed, this may include reference ranges. MEAN CORPUSCULAR HEMOGLOBIN 2025-05-23 13:18 [facility] 29.0 pg (missing) GLOBULIN 2025-05-23 13:18 [facility] 3.0 g/dl (missing) POTASSIUM 2025-05-23 13:18 [facility] 3.6 mmol/l As of April 2023 testing method has changed, this may include reference ranges. MEAN CORPUSCULAR HGB CONC 2025-05-23 13:18 [facility] 32.9 g/dl (missing) PLT - PLATELET COUNT 2025-05-23 13:18 [facility] 329 10 3/ul (missing) CK- CREATINE KINASE 2025-05-23 13:18 [facility] 34 iu/l As of April 2023 testing method has changed, this may include reference ranges. NEUTROPHILS # (AUTO) 2025-05-23 13:18 [facility] 4.0 10 3/ul (missing) ALBUMIN 2025-05-23 13:18 [facility] 4.0 g/dl As of April 2023 testing method has changed, this may include reference ranges. RED BLOOD COUNT 2025-05-23 13:18 [facility] 4.80 10 6/ul (missing) HCT - HEMATOCRIT 2025-05-23 13:18 [facility] 42.3 % (missing) WHITE BLOOD COUNT 2025-05-23 13:18 [facility] 6.5 x10 3/ul (missing) ALKALINE PHOSPHATASE 2025-05-23 13:18 [facility] 69 iu/l As of April 2023 testing method has changed, this may include reference ranges. TOTAL PROTEIN 2025-05-23 13:18 [facility] 7.0 g/dl As of April 2023 testing method has changed, this may include reference ranges. BUN - BLOOD UREA NITROGEN 2025-05-23 13:18 [facility] 8 mg/dl As of April 2023 testing method has changed, this may include reference ranges. ANION GAP 2025-05-23 13:18 [facility] 8.0 (missing) (missing) MEAN CORPUSCULAR VOLUME 2025-05-23 13:18 [facility] 88.1 fl (missing) MEAN PLATELET VOLUME 2025-05-23 13:18 [facility] 9.3 fl (missing) CALCIUM 2025-05-23 13:18 [facility] 9.3 mg/dl As of April 2023 testing method has changed, this may include reference ranges. GLUCOSE 2025-05-23 13:18 [facility] 98 mg/dl As of April 2023 testing method has changed, this may include reference ranges. Result panel 2 COVID-19 [facility] 2025-05-23 14:28 [facility] NOT DETECTED (missing) A negative test result for this test indicates that SARS-CoV-2 RNA was not present in the specimen above the limit of detection. Testing performed on the AkaRx RP2.1 Panel, a multiplexed nucleic acid repiratory panel. Negative results do not preclude infection with SARS-CoV-2 virus and should not be the sole basis of a patient management decision. In some patients repeat testing at various time points may be necessary for virus detection. False-negative results may arise from improper sample collection, degradation of viral RNA during shipping or storage, the presence of PCR inhibitors, and/or mutation in the SARS-CoV-2 virus. Result panel 3 CEFAZOLIN 2025-05-23 17:11 [facility] (missing) (missing) (missing) CIPROFLOXACIN 2025-05-23 17: [facility] <=0.25 (missing) (missing) GENTAMICIN 2025-05-23 17: [facility] <=1 (missing) (missing) TOBRAMYCIN 2025-05-23 17:11 [facility] <=1 (missing) (missing) NITROFURANTOIN 2025-05-23 17:11 [facility] <=16 (missing) (missing) WBC,URINE 2025-05-23: [facility] 0-3 /hpf (missing) UROBILINOGEN,URINE 2025-05-23: [facility] 0.2 (NORMAL) e.u./dl (missing) IMIPENEM 2025-05-23:11 [facility] 0.5 (missing) (missing) SPECIFIC GRAVITY,URINE 2025-05-23:11 [facility] 1.020 (missing) (missing) CUL, URINE 2025-05-23 17:11 [facility] 100>100,000 CFU/mL (missing) (missing) PH,URINE 2025-05-23:11 [facility] 6.0 ph (missing) CUL, URINE 2025-05-23 17:11 [facility] Beta-lactamase. Isolates that are initially susceptible may (missing) (missing) O:CITBRA 2025-05-23:11 [facility] CITBRACITROBACTER BRAAKIICITROBACTER BRAAKII (missing) (missing) MUDS CUTOFF CONCENTRATIONS 2025-05-23:11 [facility] CUTOFF CONC BELOW: (missing) [facility] uses the Home Inventory S[pecialists-V [place] Drugs of Abuse Test System. It detects drug classes at the following cutoff concentrations: AMP Amphetamine (d-Amphetamine) 500 ng/mL BAR Barbiturates (Butalbital) 200 ng/mL BZO Benzodiazepines (Nordiazepam) 150 ng/mL BUP Buprenorphine (Buprenorphine) 10 ng/mL REBECCA Cocaine (Benzoylecgonine ) 150 ng/mL MAMP Methamphetamine (d-Methamphetami ne) 500 ng/mL MTD Methadone (Methadone) 200 ng/mL OPI Opiates (Morphine) 100 ng/mL OXY Oxycodone (Oxycodone) 100 ng/mL PCP Phencyclidine (Phencyclidine) 25 ng/mL BUP Buprenorphine (Buprenorphine) 10 ng/mL THC Cannabinoids (02-yby-4-carbox y-9-THC) 50 ng/mL TCA Tricyclic Antidepressants (Desipramine) 300 ng/mL All drug screen results are unconfirmed. Results are to be used for medical (i.e. treatment) purposes only. Unconfirmed screening results must not be used for non-medical purposes (e.g., employment testing, legal testing). SQUAMOUS EPITHELIAL CELL,UR 2025-05-23 17:11 [facility] FEW Squamous (missing) (missing) CUL, URINE 2025-05-23 17:11 [facility] GNGRAM NEGATIVE GROWTH TO BE FURTHER IDENTIFIED (missing) (missing) CUL, URINE 2025-05-23 17:11 [facility] GNRGRAM NEGATIVE DYLLAN TO BE FURTHER IDENTIFIED (missing) (missing) CLARITY,URINE 2025-05-23 17:11 [facility] HAZY (missing) (missing) CUL, URINE 2025-05-23 17:11 [facility] IDMIC.1ORG 1 ID/JOSE COM* (missing) (missing) UR CULTURE IF IND 2025-05-23 17:11 [facility] INDICATED (missing) (missing) URINE MICROSCOPIC INDICATED? 2025-05-23 17:11 [facility] INDICATED (missing) (missing) CUL, URINE 2025-05-23 17:11 [facility] Isolates of Enterobacter, Citrobacter, and Serratia may (missing) (missing) BACTERIA,URINE 2025-05-23 17:11 [facility] Many /hpf (missing) AMPHETAMINE SCREEN,URINE 2025-05-23 17:11 [facility] NEGATIVE (missing) (missing) BENZODIAZEPINES SCREEN, URINE 2025-05-23 17:11 [facility] NEGATIVE (missing) (missing) BUPRENORPHINE SCREEN, URINE 2025-05-23 17:11 [facility] NEGATIVE (missing) (missing) COCAINE SCREEN URINE 2025-05-23 17:11 [facility] NEGATIVE (missing) (missing) LEUKOCYTE ESTERASE, URINE 2025-05-23 17:11 [facility] NEGATIVE (missing) (missing) METHADONE SCREEN, URINE 2025-05-23 17:11 [facility] NEGATIVE (missing) (missing) METHAMPHETAMINES SCREEN, URINE 2025-05-23 17:11 [facility] NEGATIVE (missing) (missing) OCCULT BLOOD,URINE 2025-05-23 17:11 [facility] NEGATIVE (missing) (missing) OPIATE SCREEN, URINE 2025-05-23 17:11 [facility] NEGATIVE (missing) (missing) OXYCODONE SCREEN, URINE 2025-05-23 17:11 [facility] NEGATIVE (missing) (missing) PHENCYCLIDINE SCREEN, URINE 2025-05-23 17:11 [facility] NEGATIVE (missing) (missing) BILIRUBIN,URINE 2025-05-23 17:11 [facility] NEGATIVE (missing) Bilirubin can be influenced by color interference. Please correlate positive results with clinical presentation GLUCOSE, URINE (UA) 2025-05-23 17:11 [facility] NEGATIVE mg/dl (missing) KETONES,URINE (UA) 2025-05-23 17:11 [facility] NEGATIVE mg/dl (missing) FENTANYL SCREEN, URINE 2025-05-23 17:11 [facility] Negative (missing) [employer] uses I Fentanyl (Q) Enzyme Immunoassay. RESULT INTERPRETATION: This assay qualitatively detects norfentanyl in urine which is the major metabolite of fentanyl. A result greater than or equal to 5 ng/mL is considered presumptively positive for fentanyl exposure. CLINICAL SIGNIFICANCE: Presumptive positive results indicate norfentanyl concentrations above the assay cutoff. Due to possible cross-reactivity and potential interference, confirmatory testing by a definitive method (e.g., LC-MS/MS) is recommended for positive or unexpected findings. LIMITATIONS: This test is intended for qualitative screening and is unconfirmed. Concentrations below 5 ng/mL may not be reliably detected. False positives and false negatives are possible. Results are to be used for medical purposes only and can't be used for non-medical or legal purposes. RBC,URINE 2025-05-23 17:11 [facility] None Seen /hpf (missing) CUL, URINE 2025-05-23 17:11 [facility] ORG.1PRELIM ORG ID* (missing) (missing) BARBITURATE SCREEN,UR 2025-05-23 17:11 [facility] POSITIVE (missing) (missing) NITRITE,URINE 2025-05-23 17: [facility] POSITIVE (missing) (missing) THC CANNABINOID SCREEN, URINE 2025-05-23 17: [facility] POSITIVE (missing) (missing) TRICYCLIC ANTIDEPRESSANT,URI NE 2025-05-23 17: [facility] POSITIVE (missing) (missing) CUL, URINE 2025-05-23 17:11 [facility] Pending (missing) (missing) PROTEIN,URINE 2025-05-23: [facility] TRACE mg/dl (missing) CUL, URINE 2025-05-23 17:11 [facility] [place].1[place]G 1 CC* (missing) (missing) CUL, URINE 2025-05-23 17:11 [facility] [place].6COLONY COUNT (missing) (missing) COLOR,URINE 2025-05-23 17:11 [facility] YELLOW (missing) URINE CLEAN CATCH CUL, URINE 2025-05-23 17:11 [facility] YIDENTIFICATION AND SENSITIVITIES TO FOLLOW (missing) (missing) CUL, URINE 2025-05-23 17:11 [facility] become resistant within 3 to 4 days of initiation of (missing) (missing) CUL, URINE 2025-05-23 17:11 [facility] develop resistance during prolonged therapy with third (missing) (missing) CUL, URINE 2025-05-23 17:11 [facility] generation cephalosporins as a result of depression of AmpC (missing) (missing) CUL, URINE 2025-05-23 17:11 [facility] therapy. (missing) (missing) Result panel 4 NUCLEATED RED BLOOD CELLS AUTO 2025-06-13 10:30 [facility] 0.0 /100wbc (missing) NRBC ABSOLUTE COUNT (AUTO) 2025-06-13 10:30 [facility] 0.00 x10 3/ul (missing) BASOPHILS # (AUTO) 2025-06-13 10:30 [facility] 0.1 10 3/ul (missing) EOSINOPHILS # (AUTO) 2025-06-13 10:30 [facility] 0.3 10 3/ul (missing) BILIRUBIN,TOTAL 2025-06-13 10:30 [facility] 0.3 mg/dl As of April 2023 testing method has changed, this may include reference ranges. MONOCYTES # (AUTO) 2025-06-13 10:30 [facility] 0.4 10 3/ul (missing) CREATININE 2025-06-13 10:30 [facility] 0.5 mg/dl As of April 2023 testing method has changed, this may include reference ranges. ALBUMIN/GLOBULIN RATIO 2025-06-13 10:30 [facility] 1.2 (missing) (missing) MICROALBUMIN,URINE 2025-06-13 10:30 [facility] 1.2 mg/dl [place] [employer] Definition of Moderately increased urine albumin Spot collection Urine 24-h collection Timed collection (g/mg Volume (mg/24h) (g/min) creatinine) ======= Normal < 30 < 20 < 30 Moderately 30 - 299 20 - 199 30 - 299 increased Clinical >= 300 >= 200 >= 300 albuminuria Reference Intervals shown above were taken from the literature. As of April 2023 testing method has changed, this may include reference ranges. LDL/HDL RATIO 2025-06-13 10:30 [facility] 1.3 (missing) (missing) ESTIMATED AVERAGE GLUCOSE 2025-06-13 10:30 [facility] 111 mg/dl (missing) GFR - MDRD 2025-06-13 10:30 [facility] 124 (missing) The IDMS-traceable MDRD Study Equation has been validated extensively in and populations between the ages of 18 and 70 with impaired kidney function (eGFR < 60 mL/min/1.73m2) and has shown good performance for patients with all common causes of kidney disease. Although this equation has not been validated for patients older than 70, an MDRD-derived eGFR may still be a useful tool for providers caring for patients older than 70. References: http://www.nkdep.ni h.gov/lab-evaluatio n/gfr/creatinine-st and ardization, last updated December 2011. HGB - HEMOGLOBIN 2025-06-13 10:30 [facility] 13.8 g/dl (missing) SODIUM 2025-06-13 10:30 [facility] 134 mmol/l Unknown RED CELL DISTRIBUTION WIDTH 2025-06-13 10:30 [facility] 15.8 % (missing) CHOLESTEROL 2025-06-13 10:30 [facility] 156 mg/dl Total Cholesterol Risk Classification Cholesterol Level Risk Classification <200 mg/dL Desirable 200-239 mg/dL Borderline High >240 mg/dL High As of April 2023 testing method has changed, this may include reference ranges. BNP - B-NATRIURETIC PEPTIDE 2025-06-13 10:30 [facility] 16 pg/ml (missing) ALT ALANINE AMINOTRANSFERASE 2025-06-13 10:30 [facility] 18 iu/l As of April 2023 testing method has changed, this may include reference ranges. MICROALBUM/CREATININE RATIO,UR 2025-06-13 10:30 [facility] 181.8 ug/mg (missing) LYMPHOCYTES # (AUTO) 2025-06-13 10:30 [facility] 2.1 10 3/ul (missing) CHOL/HDL RATIO 2025-06-13 10:30 [facility] 2.5 (missing) NATIONAL CHOLESTEROL GUIDELINE [facility] ([facility]) guidelines for classificaton, testing and management of cholesterol levels in adults over 20 years of age. This new classification creates three categories of risk for coronary heart disease, regardless of age or sex, according to total amd LDL cholesterols levels: Based on total cholesterol level Desirable <200 mg/dl Borderline-high 200-239 mg/dl High >=240 mg/dl Based on cholesterol ratio CHD RISK CHOL/HDL RATIO --- MALE FEMALE 0.5 x Average 3.4 3.3 1.0 x Average 5.0 4.4 2.0 x Average 9.6 7.1 3.0 x Average 13.5 11.0 VITAMIN D 25-HYDROXY 2025-06-13 10:30 [facility] 20.0 ng/ml Vitamin D deficiency has been defined by the [place] of Medicine and an Endocrine Society practice guideline as a level of serum 25-OH vitamin D less than 20 ng/mL (1,2). The Endocrine Society went on to further define vitamin D insufficiency as a level between 21 and 29 ng/mL (2). 1. IOM ([place] of Medicine). 2010. Dietary reference intakes for calcium and D. [place]: The National Academies Press. 2. [place] MF, Phoebe JOSEPH, Luan ROBLERO, et al. Evaluation, treatment, and prevention of vitamin D deficiency: an Endocrine Society clinical practice guideline. JCEM. 2010; 96(7):1911-30. Performed at: [facility] [id number] Freight Shipping Agent: Don Hamm MD, Phone: [phone] AST ASPARTATE AMINOTRANSFERASE 2025-06-13 10:30 [facility] 22 iu/l As of April 2023 testing method has changed, this may include reference ranges. VITAMIN B12 2025-06-13 10:30 [facility] 267 pg/ml VITAMIN B12 RANGES: NORMAL 180 - 914 INDETERMINATE 145 -180 DEFICIENT < 145 CARBON DIOXIDE - CO2 2025-06-13 10:30 [facility] 28 mmol/l As of April 2023 testing method has changed, this may include reference ranges. MEAN CORPUSCULAR HEMOGLOBIN 2025-06-13 10:30 [facility] 29.4 pg (missing) GLOBULIN 2025-06-13 10:30 [facility] 3.6 g/dl (missing) POTASSIUM 2025-06-13 10:30 [facility] 3.9 mmol/l As of April 2023 testing method has changed, this may include reference ranges. MEAN CORPUSCULAR HGB CONC 2025-06-13 10:30 [facility] 33.0 g/dl (missing) PLT - PLATELET COUNT 2025-06-13 10:30 [facility] 340 10 3/ul (missing) ALBUMIN 2025-06-13 10:30 [facility] 4.2 g/dl As of April 2023 testing method has changed, this may include reference ranges. NEUTROPHILS # (AUTO) 2025-06-13 10:30 [facility] 4.3 10 3/ul (missing) RED BLOOD COUNT 2025-06-13 10:30 [facility] 4.69 10 6/ul (missing) HCT - HEMATOCRIT 2025-06-13 10:30 [facility] 41.8 % (missing) TRIGLYCERIDES 2025-06-13 10:30 [facility] 47 mg/dl Unknown Triglyceride Risk Classification <150 mg/dL Normal 150-199 mg/dL Borderline High 200-499 mg/dL High >500 mg/dL Very High As of April 2023 testing method has changed, this may include reference ranges. HEMOGLOBIN A1c% 2025-06-13 10:30 [facility] 5.5 % The [place] Diabetes Association (ADA) has made the following recommendations: Monitoring HbA1c in Diabetic Patients: A1c (NGSP%) Goal <8 Less Stringent Goal <7 General Goal <6.5 More Stringent Goal Diagnosis of Diabetes: A1c (NGSP%) Goal >6.5 Diabetic 5.7-6.4 Pre-Diabetic <5.7 Non-Diabetic CREATININE,URINE 2025-06-13 10:30 [facility] 6.6 mg/dl As of April 2023 testing method has changed, this may include reference ranges. HDL CHOLESTEROL 2025-06-13 10:30 [facility] 63 mg/dl Coronary Heart Disease Risk Classification HDL Level Risk factor < 40 mg/dL major risk > 60 mg/dL negative risk As of April 2023 testing method has changed, this may include reference ranges. ANION GAP 2025-06-13 10:30 [facility] 7.0 (missing) (missing) WHITE BLOOD COUNT 2025-06-13 10:30 [facility] 7.2 x10 3/ul (missing) TOTAL PROTEIN 2025-06-13 10:30 [facility] 7.8 g/dl As of April 2023 testing method has changed, this may include reference ranges. LDL CHOLESTEROL,CALCULATED 2025-06-13 10:30 [facility] 84 mg/dl LDLD REFERENCE RANGE AND CARDIOVASCULAR RISK: <130 mg/dL Desirable 130-159 mg/dL Borderline High Risk >160 mg/dL High Risk MEAN CORPUSCULAR VOLUME 2025-06-13 10:30 [facility] 89.1 fl (missing) VLDL CHOLESTEROL 2025-06-13 10:30 [facility] 9 mg/dl (missing) BUN - BLOOD UREA NITROGEN 2025-06-13 10:30 [facility] 9 mg/dl As of April 2023 testing method has changed, this may include reference ranges. CALCIUM 2025-06-13 10:30 [facility] 9.5 mg/dl As of April 2023 testing method has changed, this may include reference ranges. MEAN PLATELET VOLUME 2025-06-13 10:30 [facility] 9.7 fl (missing) ALKALINE PHOSPHATASE 2025-06-13 10:30 [facility] 93 iu/l As of April 2023 testing method has changed, this may include reference ranges. GLUCOSE 2025-06-13 10:30 [facility] 95 mg/dl As of April 2023 testing method has changed, this may include reference ranges. CHLORIDE 2025-06-13 10:30 [facility] 99 mmol/l As of April 2023 testing method has changed, this may include reference ranges. Result panel 5 CUL, URINE 2025-06-29 13:00 [facility] (missing) (missing) (missing) CEFAZOLIN 2025-06-29 13:00 [facility] >=64 (missing) (missing) CIPROFLOXACIN 2025-06-29 13:00 [facility] <=0.25 (missing) (missing) GENTAMICIN 2025-06-29 13:00 [facility] <=1 (missing) (missing) TOBRAMYCIN 2025-06-29 13:00 [facility] <=1 (missing) (missing) NITROFURANTOIN 2025-06-29 13:00 [facility] <=16 (missing) (missing) IMIPENEM 2025-06-29 13[facility]00 [facility] (missing[facility] CUL, URINE 2025-06-29 13:00 [facility] 100>100,000 CFU/mL (missing) (missing) CUL, URINE 2025-06-29 13:00 [facility] 5050,000-100,000 CFU/mL (missing) (missing) CUL, URINE 2025-06-29 13:00 [facility] Beta-lactamase. Isolates that are initially susceptible may (missing) (missing) O:CITBRA 2025-06-29 13:00 [facility] CITBRACITROBACTER BRAAKIICITROBACTER BRAAKII (missing) (missing) CUL, URINE 2025-06-29 13:00 [facility] GNRGRAM NEGATIVE DYLLAN TO BE FURTHER IDENTIFIED (missing) (missing) CUL, URINE 2025-06-29 13:00 [facility] IDMIC.1ORG 1 ID/JOSE COM* (missing) (missing) CUL, URINE 2025-06-29 13:00 [facility] Isolates of Enterobacter, Citrobacter, and Serratia may (missing) (missing) CUL, URINE 2025-06-29 13:00 [facility] ORG.1PRELIM ORG ID* (missing) (missing) CUL, URINE 2025-06-29 13:00 [facility] Pending (missing) (missing) CUL, URINE 2025-06-29 13:00 [facility] UCC.1ORG 1 CC* (missing) (missing) CUL, URINE 2025-06-29 13:00 [facility] UCC.6COLONY COUNT (missing) (missing) CUL, URINE 2025-06-29 13:00 [facility] YIDENTIFICATION AND SENSITIVITIES TO FOLLOW (missing) (missing) CUL, URINE 2025-06-29 13:00 [facility] become resistant within 3 to 4 days of initiation of (missing) (missing) CUL, URINE 2025-06-29 13:00 [facility] during prolonged therapy with third (missing) (missing) CUL, URINE 2025-06-29 13:00 [facility] generation cephalosporins as a result of depression of AmpC (missing) (missing) CUL, URINE 2025-06-29 13:00 [facility] therapy. (missing) (missing) Social History date description facility
[2025-08-21 18:17] LABS: HCT - HEMATOCRIT 39.7 % (37.0-47.0); HGB - HEMOGLOBIN 12.8 g/dL (12.0-16.0); MEAN PLATELET VOLUME 8.8 fL (7.9-10.8); NRBC ABSOLUTE COUNT (AUTO) 0.00 x10^3/uL; NUCLEATED RED BLOOD CELLS AUTO 0.0 /100WBC; PLT - PLATELET COUNT 181 10^3/uL (130-450); RED CELL DISTRIBUTION WIDTH 15.8 % (12.0-15.0)
[2025-08-21 18:39] LABS: ALT ALANINE AMINOTRANSFERASE 49.0 IU/L (10-60); AST ASPARTATE AMINOTRANSFERASE 84.0 IU/L (10-42); BUN - BLOOD UREA NITROGEN 5.0 mg/dL (6-20); CARBON DIOXIDE - CO2 23.0 mmol/L (21-32); CREATININE 0.3 mg/dL (0.6-1.3); ETOH - ETHANOL 405.4 mg/dL; GFR - MDRD 224.0 (>89)
[2025-08-21] MEDS: ACETAMINOPHEN 500 MG TABLET PO STA (18:41)
--- NOTE | 2025-08-21 18:41 | CT Report ---
PROCEDURE: CT Head WO INDICATIONS: head inj TECHNIQUE: CT of the head was performed, without intravenous contrast. Reformats: Coronal and sagittal. For radiation dose reduction, the following was used: automated exposure control, adjustment of mA and/or kV according to patient size. COMPARISON: 12/05/2024, 11/20/2024. Correlation is made with the accompanying imaging. FINDINGS: Image quality: Diagnostic. CSF spaces: Basal cisterns are patent. No extra-axial fluid collections. Ventricles are normal in size and shape. Brain: No midline shift. No intracranial mass effect or hemorrhage. Benoit- white matter interface is normal. Skull and face: Left lateral forehead/temporal region scalp hematoma can be seen. No associated calvarial fracture is seen. Calvarium and visualized facial bones are intact, without suspicious lesions. Sinuses: Visualized sinuses and mastoids are clear. IMPRESSION: Left lateral forehead/left temporal region scalp hematoma can be seen. Negative for a displaced calvarial fracture. No intracranial hemorrhage is seen. No significant intracranial abnormality is seen. Reviewed by: Alexy Salazar MD on 08/21/2025 5:37 PM [facility] Approved by: Alexy Salazar MD on 08/21/2025 5:37 PM [facility] Station ID: [id number]
--- NOTE | 2025-08-21 18:42 | CT Report ---
PROCEDURE: CT Cervical Spine WO INDICATIONS: head inj TECHNIQUE: Noncontrast images acquired from the skull base to the T4 level. Sagittal and coronal reformats were then constructed. For radiation dose reduction, the following was used: automated exposure control, adjustment of mA and/or kV according to patient size. COMPARISON: 12/05/2024, 11/11/2024. Correlation is made with the accompanying imaging. FINDINGS: Image quality: Excellent. Bones: No fractures or dislocations. Visualized superior ribs are intact. There is moderate to space narrowing seen at C2-C3 and C3-C4. There is at least moderate to space narrowing seen at C4-C5, C5-C6, C6-C7, and C7-T1. Posteriorly directed endplate osteophytes are seen, which are worst at the C6-C7 level. Soft tissues: Prevertebral soft tissues are normal in thickness. No paravertebral hematomas. No apical pneumothoraxes. Emphysematous change is noted at the lung apices. Atherosclerotic calcification is seen. IMPRESSION: No acute fracture is seen. Significant lower cervical spine degenerative changes are seen. Reviewed by: Alexy Salazar MD on 08/21/2025 5:39 PM [facility] Approved by: Alexy Salazar MD on 08/21/2025 5:39 PM [facility] Station ID: [id number]
--- NOTE | 2025-08-21 19:28 | XRAY Report ---
PROCEDURE: XR Wrist 3+V BL INDICATIONS: Bilat wrist inj TECHNIQUE: 3 views of the wrist were acquired. COMPARISON: None. FINDINGS: Bones: No fractures or dislocations. No suspicious bony lesions. Diffuse demineralization. Soft tissues: No suspicious soft tissue calcifications or masses. IMPRESSION: No visible fracture, however the patient is diffusely demineralized and this can obscure nondisplaced fractures. If there is high level of clinical concern, consider immobilization and reimaging in 7 to 10 days. Reviewed by: Mary Miller MD on 08/21/2025 7:24 PM PST Approved by: Mary Miller MD on 08/21/2025 7:24 PM PST Station ID: [id number]
[2025-08-21 19:38] LABS: AMPHETAMINE SCREEN,URINE NEGATIVE (NEGATIVE); BARBITURATE SCREEN,UR NEGATIVE (NEGATIVE); BENZODIAZEPINES SCREEN, URINE NEGATIVE (NEGATIVE); BUPRENORPHINE SCREEN, URINE NEGATIVE (NEGATIVE); COCAINE SCREEN URINE NEGATIVE (NEGATIVE); METHADONE SCREEN, URINE NEGATIVE (NEGATIVE); METHAMPHETAMINES SCREEN, URINE NEGATIVE (NEGATIVE); OPIATE SCREEN, URINE NEGATIVE (NEGATIVE); THC CANNABINOID SCREEN, URINE NEGATIVE (NEGATIVE)
[2025-08-21] MEDS: THIAMINE 100 MG TABLET PO STA (19:43)
[2025-08-21] MEDS: NICOTINE 21 MG PATCH TOP STA (19:43)
--- NOTE | 2025-08-21 23:12 | ED Physician Documentation ---
ED Addendum Addendum Addendum: Patient was handed off to me at [address] Badillo. Patient was reassessed in the a.m., and she appeared sober. She was tremulous, but without hypertension or tachycardia. She was newly on 2 L nasal cannula overnight which she does not normally wear. I did give her a dose of Ativan to help with her subjective symptoms of withdrawal. Due to her new onset oxygen requirements I requested a road test/ambulation trial with O2 monitoring. She desaturated to 78%, which is abnormal for her. Therefore, recommendation will be to admit this patient to the floor. Chest x-ray, respiratory panel, and further pulmonary workup was ordered prior to my signout to daytime physician Dr. Lanier. Please refer to her note for further details of this patient's care while in the ER after my shift. Disposition: ER, pending admission to the floor after further workup in ER Discharge Plan Discharge Condition: Stable Clinical Impression: Alcohol use disorder, severe, dependence, Frequent falls, Head injury Prescriptions: No Action simvastatin 20 mg tablet 20 mg PO QPM Qty: 90 3RF metformin 500 mg tablet 500 mg PO BID Qty: 180 3RF Rx Instructions: Take 1 tablet by mouth twice daily ergocalciferol (vitamin D2) [Vitamin D2] 1,250 mcg (50,000 unit) capsule 1,250 mcg PO QWEEK Qty: 13 0RF gabapentin 300 mg capsule 300 mg PO TID Qty: 60 3RF amlodipine [Norvasc] 5 mg tablet 5 mg PO QDAY Qty: 90 3RF Rx Instructions: Take 1 tablet by mouth once a day lamotrigine 100 mg tablet 200 mg PO QPM Rx Instructions: After 50mg dose x 14 days. Take 1 tablet in the evening x 7 days, then increase to 2 tablets daily in the evening. trazodone 50 mg tablet 50 mg PO HS Qty: 30 2RF duloxetine 60 mg capsule,delayed release(DR/EC) 60 mg PO QPM Qty: 30 2RF quetiapine 50 mg tablet 50 mg PO QPM Qty: 30 2RF omeprazole 20 mg capsule,delayed release(DR/EC) 20 mg PO QDAY Qty: 30 0RF duloxetine 20 mg capsule,delayed release(DR/EC) 20 mg PO BID Qty: 60 0RF albuterol sulfate 90 mcg/actuation HFA aerosol inhaler 2 puff inhalation Q4H PRN (Reason: shortness of breath or wheezing) Rx Instructions: Inhale 2 puff using inhaler every four hours as needed Activity Restrictions/Additional Instructions: You are seen today because the [facility] school social worker brought you in. You had a blood alcohol of 405 Print Language: Kiswahili Patient Instructions: ED Alcohol Intoxication, ED Head Injury (Adult), ED Alcohol Abuse Stand Alone Forms: PCP List
[2025-08-22] MEDS: ONDANSETRON ODT 4 MG TABLET TL STA ×2 (04:46)
--- NOTE | 2025-08-22 08:16 | XRAY Report ---
PROCEDURE: XR Chest 1V INDICATIONS: SOB, new supp O2 requirements TECHNIQUE: One view of the chest was acquired. COMPARISON: 10/20/2024 FINDINGS: Surgical changes and devices: None. Lungs and pleura: No pleural effusions or pneumothorax. Increased interstitial markings. Mediastinum: Mediastinal contours appear normal. Heart size is normal. Bones and chest wall: No suspicious bony lesions. Overlying soft tissues appear unremarkable. IMPRESSION: Increased interstitial markings, correlate for edema versus infection. Reviewed by: Chaim Moreland MD on 08/22/2025 8:13 AM PST Approved by: Chaim Moreland MD on 08/22/2025 8:13 AM PST Station ID: [id number]
[2025-08-22] MEDS: SODIUM CHLORIDE 0.9% 1,000 ML IV STA (09:02)
[2025-08-22 09:52] LABS: B. PARAPERTUSSIS- RESP PCR PAN NOT DETECTED; B. PERTUSSIS- RESP PCR PANEL NOT DETECTED; C. PNEUMONIAE- RESP PCR PANEL NOT DETECTED; CORONAVIRUS 229E-RESP PCR NOT DETECTED; CORONAVIRUS HKU1-RESP PCR NOT DETECTED; CORONAVIRUS NL63-RESP PCR NOT DETECTED; CORONAVIRUS OC43-RESP PCR NOT DETECTED; HUMAN METAPNEUMOVIRUS NOT DETECTED; INFLUENZA A- RESP PCR PANEL NOT DETECTED; INFLUENZA B - RESP PCR PANEL NOT DETECTED; M. PNEUMONIAE- RESP PCR PANEL NOT DETECTED; PARAINFLUENZA VIRUS 1 NOT DETECTED; PARAINFLUENZA VIRUS 2 NOT DETECTED; PARAINFLUENZA VIRUS 4 NOT DETECTED; RHINOVIRUS/ENTEROVIRUS NOT DETECTED; RSV- RESP PCR PANEL NOT DETECTED; SARS-CoV-2 -RESP PCR PANEL NOT DETECTED
[2025-08-22] MEDS: LORazepam 2 MG/ML VIAL IVP STA (11:43)
[2025-08-22] MEDS: AZITHROMYCIN 250 MG TABLET PO STA (14:11)
[2025-08-22] MEDS: THIAMINE 100 MG TABLET PO STA (14:17)
--- NOTE | 2025-08-22 15:18 | PHARMACY PROGRESS NOTE ---
Best Possible Medication History Admit Date and Time: Home Medications Medication Instructions Recorded Confirmed Type albuterol sulfate 90 mcg/actuation 2 puff inhalation Q 4H PRN 07/13/24 08/22/25 History aerosol inhaler shortness of breath or wheez ing simvastatin 20 mg tablet 20 mg PO QPM #90 tabs 08/22/25 Rx metformin 500 mg tablet 500 mg PO BID Diabetes #180 tabs 05/07/25 08/22/25 Rx ergocalciferol (vitamin D2) 1,250 1,250 mcg PO QWEEK # 13 caps 06/14/25 08/22/25 Rx mcg (50,000 unit) capsule (Vitamin D2) gabapentin 300 mg capsule 300 mg PO TID #60 caps 07/1008/22/25 Rx duloxetine 60 mg capsule,delayed 60 mg PO QPM #30 caps 07/13/25 08/22/25 Rx release quetiapine 50 mg tablet 50 mg PO QPM #30 tabs 08/22/25 Rx trazodone 50 mg tablet 50 mg PO HS #30 tabs 5 08/22/25 Rx lamotrigine 100 mg tablet 200 mg PO QPM 08/21/25 Hist ory amlodipine 5 mg tablet (Norvasc) 5 mg PO DAILY 5 08/22/25 History omeprazole 20 mg capsule,delayed 20 mg PO DAILY 08/22/25 History release Processed by: Pharmacy (Medication reconciliation completed by [employer]) Medications reviewed in ED?: Yes Medication History completed: Yes Patient Interview: Completed Secondary Source(s): Insurance records (unable to confirm lamotrigine dose. Patient is unsure, however has been filling. Unable to reach out to caregiver to confirm current dose, number in chart is fax number) [facility] Statement: As the person ultimately responsible for medication therapy, providers are able to order a medication from an existing home medication list in [facility] via the "Reconcile Routine" prior to Confirmation of that medication by technology support analyst. Such practice is discouraged except when the physician, in their clinical judgment, deems that a medical need exists for a medication without regard to previous use.
--- NOTE | 2025-08-22 16:58 | HISTORY & PHYSICAL EXAMINATION ---
Chief Complaint Chief Complaint Chief Complaint: Several falls, welfare checks History of Present Illness Admitted From Admitted From:: Home History Obtained From Records Reviewed: EMR History obtained from: Patient Exam Limitations: Patient confused History of Present Illness HPI Comment/Other: Patient is a 65 year old with a history of alcohol use who presents after a fall in her bathroom. Per patient, she has been drinking heavily. She drinks tall cans of beers, and has been drinking about 6-8 every day. She states it was her two daughters birthdays recently, whom she is estranged from which led her to drinking heavily. She remembers falling a lot at home. She fell going from her toilet to the bathtub, and landed on her face. Per ER documentation, [facility] social worker masters called EMS because she had been on a cruz and had several falls. Currently, she is alert and oriented x 4. She has some minor confabulations when she is telling her history, but is otherwise able to hold an appropriate conversation. She is actively tremulous, and feels herself going through withdrawals. She states that usually takes about 24 hours from her last drink to notice withdrawals. She has ongoing tremors. She has never had alcohol withdrawal related seizure. She states that she has been to rehab about 3 times. I anticipate more than 2 midnights stay and as such, have admitted patient in inpatient status. She is currently interested in continuing to abstain from alcohol. She has a history of COPD, and states that she was up to 3 to 4 L of oxygen at home typically. She is still smoking, about half a pack to a pack a day. She make sure she turns off her oxygen before she smokes. She denies any fevers, chills. She has a chronic cough, which appears to be at her baseline with no increase in sputum production. In the emergency room, she was slightly tachycardic in the low 100s, normotensive with blood pressure 140s to 160s, saturating 87% on room air. She was put on 2 to 3 L with improvement of her oxygen to 92 to 93%. She has been afebrile the entire time she has been here lab work was reviewed from admissionshe has no leukocytosis. BMP is remarkable for sodium of 130, and a high anion gap metabolic acidosis. Her CPK was slightly elevated at thousand 12. Her procalcitonin was negative at 0.08. Chest x-ray showed increased interstitial markings. Wrist x-ray showed no visible fracture. Cervical spine CT and head CT were negative for any acute fractures. Head CT did show a left lateral forehead/left temporal region scalp hematoma. Her past medical history includes COPD on 3 to 4 L of oxygen, pulmonary hypertension, severe alcohol use disorder, bipolar disorder type I, PTSD, borderline personality disorder, cannabis use disorder, tobacco use disorder. Medications include amlodipine, simvastatin. Behavioral health notes noted from 07/28 which indicate that she is on trazodone, Seroquel, and possibly Lamictal. She has allergies to ciprofloxacin and sulfaleads to hives, and oral blisters. As stated above, she has a history of heavy alcohol use. Currently drinking 6 beers a day. Has withdrawal symptoms and under 24 hours. Has never had a withdrawal seizure. Smoking about 1 pack of tobacco a day, or 50-year pack history. Occasional marijuana use. Lives with a friend. Typically independent of ADLs. Does have 2 daughters, but has a strained relationship with them. Meds/Allgy Home Medications Ambulatory Orders Medication Instructions Recorded Confirmed albuterol sulfate 90 mcg/actuation 2 puff inhalation Q 4H PRN 07/13/24 08/22/25 aerosol inhaler shortness of breath or wheez ing simvastatin 20 mg tablet 20 mg PO QPM #90 tabs 08/22/25 metformin 500 mg tablet 500 mg PO BID Diabetes #180 tabs 05/07/25 08/22/25 ergocalciferol (vitamin D2) 1,250 1,250 mcg PO QWEEK # 13 caps 06/14/25 08/22/25 mcg (50,000 unit) capsule (Vitamin D2) duloxetine 60 mg capsule,delayed 60 mg PO QPM #30 caps 07/13/25 08/22/25 release quetiapine 50 mg tablet 50 mg PO QPM #30 tabs 08/22/25 trazodone 50 mg tablet 50 mg PO HS #30 tabs 5 08/22/25 lamotrigine 100 mg tablet 200 mg PO QPM 08/21/25 amlodipine 5 mg tablet (Norvasc) 5 mg PO DAILY 5 08/22/25 gabapentin 300 mg capsule 300 mg PO TID #90 caps 08/22 omeprazole 20 mg capsule,delayed 20 mg PO DAILY 08/22/25 release Allergies Allergies Allergy/AdvReac Type Severity Reaction Status Date / Time ciprofloxacin Allergy Severe Hives Verified 08/21/25 18:00 Sulfa (Sulfonamide Allergy Mild oral Verified 08/21/25 18:00 Antibiotics) blisters codeine Allergy unknown Verified 08/21/25 18:00 [facility] Active Problems All Active Problems (Updated 08/23/25 @ 07:21 by Roel Reid MD) Wernicke encephalopathy (Acute) Elevated CPK (Acute) High anion gap metabolic acidosis (Acute) Acute hypoxic respiratory failure (Acute) Acute metabolic encephalopathy (Acute) Pneumonia (Acute) Acute hyperactive alcohol withdrawal delirium (Acute) Head injury (Acute) Marijuana use (Acute) Encounter to establish care with new provider (Acute) Alcohol use disorder, severe, dependence (Acute) Bipolar 1 disorder, depressed, moderate (Acute) Hip pain, bilateral (Acute) Bilateral chronic knee pain (Acute) Type 2 diabetes mellitus (Chronic) Chest pain (Chronic) Vitamin D deficiency (Chronic) Migraine headache (Chronic) Other hereditary corneal dystrophies, 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, left eye (Chronic) Physical deconditioning (Chronic) Depression (Chronic) Congestive heart failure (Chronic 12/21/18) Chronic low back pain (Chronic 06/23/19) Cataracts, bilateral (Chronic 12/13/18) Tremor (Chronic 07/15/17) Shoulder pain, bilateral (Chronic 05/31/19) Rheumatoid arthritis (Chronic 12/21/18) Restless leg syndrome (Chronic 03/17/19) Pulmonary hypertension (Chronic 08/03/18) PTSD (post-traumatic stress disorder) (Chronic 05/29/16) Peripheral neuropathy (Chronic 03/17/21) Obstructive sleep apnea (Chronic 05/29/16) Obesity (Chronic 05/04/17) Nicotine dependence, cigarettes, uncomplicated (Chronic 08/19/16) Neck pain, chronic (Chronic 06/23/19) Lung nodule (Chronic 05/29/16) Interstitial lung disease (Chronic 05/29/16) Incontinence (Chronic 05/29/16) GERD (gastroesophageal reflux disease) (Chronic 05/29/16) Frequent falls (Chronic 07/15/17) Essential hypertension, benign (Chronic 08/31/23) Borderline personality disorder (Chronic 05/29/16) Crawford's esophagus (Chronic 05/29/16) Allergic rhinitis (Chronic 11/18/17) Fibromyalgia (Chronic) Hyponatremia (Chronic) Microcytic anemia (Chronic) COPD (chronic obstructive pulmonary disease) (Chronic) Hyperlipidemia (Chronic) Sciatica (Chronic) Chronic pain (Chronic) Medical History Medical History (Updated 08/23/25 @ 07:21 by Roel Reid MD) Anxiety Alcoholism Bipolar II disorder (05/29/16) PTSD (post-traumatic stress disorder) Anxiety and depression Alopecia (04/28/17) Alcohol withdrawal Fall from ground level Compression fracture of L1 lumbar vertebra Colitis Rotator cuff tear Surgical History Surgical History H/O cervical spine surgery S/P hardware removal Status post open reduction and internal fixation (ORIF) of fracture Family History Family History (Updated 07/17/24 @ 15:16 by GARRET Juárez) Mother Osteoporosis Arthritis Cancer Anxiety Depressed Heart disease Hyperlipidemia Father Family history of lung cancer Other Suicide attempt Social History Social History (Updated 08/21/25 @ 18:20 by Genaro Galindo, MONIQUE) Smoking Status: Current every day smoker Number of Years Smoked: 16 How many cigarettes a day do you smoke? (20 cigarettes=1 Pk): 30 Second hand tobacco smoke exposure: Yes Do you dip or chew tobacco?: No Do you vape?: No Patient requests smoking cessation consult: No Initiate information on smoking cessation: No Living arrangement: At home Living Condition: Alone Support Person: Yes Living Situation Details: lives with room mate Physical Activity: None Level: Independent Home Mobility Equipment: Walker Do you feel safe in your home environment?: No History of physical, verbal, emotional, or financial abuse?: No ETOH Use: Beer and Liquor Frequency: Daily ETOH - Additional Notes: Per patient unsure of quantity due to changes in beer sized. Estimates 10-15 12oz beers nightly Substance Use: denies use Are you sexually active?: Yes POLST Patient has POLST: Yes POLST CPR Status: Attempt Resuscitation (CPR) Level of Medical Intervention: Full Treatment Review of Systems Constitutional Reports: Chills, Weakness and Poor appetite; Denies: Fatigue, Fever or Malaise Eyes Denies: Pain, Irritation, Blurry vision, Vision loss or Diplopia Ears, nose, mouth, and throat Reports: Neck pain; Denies: Ear pain, Hearing loss, Tinnitus, Nose bleeds or Nasal discharge Cardiovascular Reports: shortness of breath with exertion; Denies: Irregular heart rate, chest pain, palpitations, edema or Syncope Respiratory Reports: Shortness of breath and Cough; Denies: Sputum production or Wheezing Gastrointestinal Denies: Abdominal pain, Abdominal distention, Nausea, Vomiting, Heartburn, Diarrhea or Constipation Genitourinary Denies: Painful urination, Urinary frequency or Urinary urgency Musculoskeletal Reports: Neck pain; Denies: Back pain, Extremity pain, Extremity swelling or Joint pain Integumentary/Breast Denies: Rash, Itching, Dryness, Redness or Skin pain Neurological Reports: Headache and General weakness; Denies: Weakness in extremities, Numbness in extremities, Abnormal gait or Dizziness Psychiatric Reports: Depression and Anxiety; Denies: Mood swings or Panic attacks Endocrine Denies: Excessive urination, Excessive thirst or Fatigue Hematologic/Lymphatic Denies: Anemia, Easy bruising or Easy bleeding Allergic/Immunologic Denies: Hives, Tongue swelling, Facial swelling or Wheezing Prior Level of Functionality: Lives alone, independent of ADLs when sober. Exam Exam Vital Signs: Vital Signs x48h Temp Pulse Resp BP Pulse Ox O2 Flow Rate 08/23/25 04:19 97.7 F 95 22 146/85 H 92 4 08/22/25 23:54 92 3 08/22/25 23:53 98.8 F 104 H 24 157/81 H 90 L 2 Constitutional average body habitus and alert Appears older than stated age. Very tremulous. Alert and oriented. [facility] normocephalic and dentition abnormal other (dental caries, missing teeth noted) Bruising on left lower face, as well as left scalp. Small hematoma noted. Eyes PERRL, EOMs intact bilaterally, conjunctivae normal and nystagmus noted (horizontal) Neck/C-Spine visual inspection normal and cervical spine nontender Chest inspection of chest normal Respiratory breath sounds equal bilaterally, normal respiratory effort, clear to auscultation bilaterally, no wheezes, no rales and no retractions Cardiovascular normal heart rate noted, regular rhythm noted, no gallop, no rub and no murmur Gastrointestinal abdomen normal to inspection, abdomen soft to palpation, nontender to palpation and normoactive bowel sounds Genitourinary no CVA tenderness and bladder normal to palpation Back/Pelvis spine normal to inspection, no thoracic spine tenderness and no lumbar spine tenderness Extremities normal to inspection, normal to palpation, no tenderness and full ROM Bilateral tremors noted in hands. At rest, and with intentional movement. Neurology no movement abnormality noted and no focal motor deficit noted Psychiatry mental status grossly normal, oriented x3, thought process normal, cooperative and affect normal Some confabulations noted. Skin skin color normal, no rash, no lesions and no wounds Conclusion/Plan Problem List (1) Acute metabolic encephalopathy: (2) Wernicke encephalopathy: (3) Acute hyperactive alcohol withdrawal delirium: Plan: The following plan is for the above two assessments: Patient presented with acute confusion. [place] social worker masters had called for a welfare check as patient had been on a cruz and then falling frequently at home. Alcohol level was greater than 400. Patient appears to be in acute alcohol withdrawal. CIWA greater than 16, then greater than 13. Continue Ativan as needed. She also presents with an ataxic gait, altered mentation, as well as some horizontal nystagmus noted on exam. Concern for Wernickes. Continue high-dose IV thiamine supplementation with IV thiamine 500 mg 3 times daily for 48 hours. Continue vitamin. Social work will be consulted for further counseling. Patient is interested in rehab and resources. (4) Hyponatremia: Plan: Continue IVF. Hypovolemic hyponatremia due to decreased p.o. intake while drinking alcohol versus beer potomania, and decreased solute intake in the last few days. (5) High anion gap metabolic acidosis: Plan: Due to alcoholic ketosis. Continue to trend. Continue IVF. (6) Elevated CPK: Plan: Normal kidney function, patient is urinating appropriately. Continue IVF. (7) Anxiety and depression: (8) Alcoholism: (9) Bipolar II disorder: Plan: The following plan is for the above 3 diagnoses: Last behavioral health note reviewed from 07/28. Patient carries a diagnosis of bipolar disorder, borderline personality disorder, PTSD. Continue home Seroquel, trazodone, duloxetine. Patient may also be on Lamictal; awaiting pharmacy reconciliation to start again. (10) Essential hypertension, benign: Plan: Continue amlodipine. (11) COPD (chronic obstructive pulmonary disease): Plan: Patient with 50+ pack-year smoking history. Still smoking a pack a day. On chronic oxygen, states she was up to 3 to 4 L of oxygen at home. No active wheezing noted. Continue DuoNebs as needed. Qualifiers: COPD type: unspecified COPD Qualified Code(s): J44.9 - Chronic obstructive pulmonary disease, unspecified Lab Results Lab results reviewed: Yes 08/23/25 07:00 08/23/25 07:00 Diagnostic Imaging Results Diagnostic Imaging Results: positive Final report reviewed Core Measures Anticipated LOS I expect patient to be DC'd or transferred within 96 hours.: Yes Issues Hospital Issues and Management Plan: None anticipated. DVT/VTE - Prophylaxis VTE/DVT Device ordered at admit?: Yes VTE/DVT Prophylaxis med ordered at admit?: Yes Stroke - Rehab Assessment Rehab services assessment to be ordered?: No Not Ordered - Medical Reason: Not indicated AMI - Statin at Admit Aspirin Prescribed on Admit: No Not Ordered - Medical Reason: Not indicated
[2025-08-22] MEDS ORDERED: PROCHLORPERAZINE 10 MG/2 ML VIAL IVP PRN (17:04)
--- OUTSIDE RECORDS SUMMARY | 2025-08-22 17:06 | EXTERNAL MEDICAL SUMMARY RPT | Continuity of Care Document ---
Author Organization [facility] Address [address] [place] [id number] Phone Problems date description facility 2025-05-25 08:52 [facility] 2025-05-30 10:19 Anxiety disorder, unspecified [facility] 2025-05-30 11:14 Anemia, unspecified [facility] 2025-05-30 11:14 Type 2 diabetes mellitus withou t complications [facility] 2025-05-30 11:14 Hypo-osmolality and hyponatremi a [facility] 2025-05-30 11:14 Acidosis, unspecified [facility]30 11:14 [facility]alemia [facility] 2025-05-30 11:14 Alcohol abuse with intoxication , unspecified [facility] 2025-05-30 11:14 Alcohol dependence with withdra wal, unspecified [facility] 2025-05-30 11:14 Alcohol use, unspecified, uncom plicated [facility] 2025-05-30 11:14 Alcohol use, unspeci fied with withdrawal, uncomplicated [facility] 2025-05-30 11:14 Alcohol use, unspecified with w ithdrawal, unspecified [facility] 2025-05-30 11:14 Depression, unspecified [facility] 2025-05-30 11:14 Acute pharyngitis, unspecified [facility] 2025-05-30 11:14 Chronic obstructive pulmonary d isease, unspecified [facility] 2025-05-30 11:14 Erythema intertrigo [facility] 2025-05-30 11:14 Pain in left hip [facility] 2025-05-30 11:14 Urinary tract infection, site n ot specified [facility] 2025-05-30 11:14 Nausea with vomiting, unspecifi ed [facility] 2025-05-30 11:14 Other skin changes [facility] 2025-05-30 11:14 [facility]-30 11:14 Cramp and spasm [facility] 2025-05-30 11:14 Hematuria, unspecified [facility] 2025-05-30 11:14 Altered mental status, unspecif ied [facility] 2025-05-30 11:14 Suicidal ideations [facility] 2025-05-30 11:14 Other symptoms and s igns involving appearance and behavior [facility] 2025-05-30 11:14 Headache, unspecified [facility] 2025-05-30 11:14 Other malaise [facility] 2025-05-30 11:14 Fracture of unspecif ied metatarsal bone(s), unspecified foot, initial encounter for closed fracture [facility] 2025-05-30 11:14 Unspecified fracture of left foot, initial encounter for closed fracture [facility] 2025-05-30 11:14 Unspecified fracture of unspecified toe(s), initial encounter for closed fracture [facility] 2025-05-30 11:14 Unspecified injury of right dia t, initial encounter [facility] 2025-05-30 11:14 History of falling [facility] 2025-06-07 15:18 Bipolar II disorder [facility] 2025-06-07 15:18 Depression, unspecified [facility] 2025-06-07 15:18 Anxiety disorder, unspecified [facility] 2025-06-07 15:18 Borderline personality disorder [facility] 2025-06-07 15:18 Heart failure, unspecified [email or web address] 2025-06-07 15:18 Chest pain, unspecified idbey [facility] 2025-06-08 09:15 Heart failure, unspecified [email or web address] 2025-06-08 09:15 Chest pain, unspecified [facility] 2025-06-08 11:36 Heart failure, unspecified id bey [facility] 2025-06-08 11:36 Chest pain, unspecified [facility] 2025-06-08 11:52 Heart failure, unspecified [facility] [employer] [place] 2025-06-08 11:52 Chest pain, unspecified [facility] 2025-06-08 12:09 Heart failure, unspecified [facility] 2025-06-08 12:09 Chest pain, unspecified [facility] 2025-06-14 00:05 Type 2 diabetes mellitus withou t complications id[facility] 2025-06-14 00:05 Vitamin D deficiency, unspecifi ed [facility] 2025-06-14 00:05 Hyperlipidemia, unspecified Whi d[facility] 2025-06-14 00:05 Essential (primary) hypertensio n [facility] 2025-[facility]14 00:05 Heart failure, unspecified [email or web address] 2025-06-14 00:05 Cardiomegaly [facility] 2025-06-14 08:21 Cardiomegaly idjak [facility] 2025-06-18 11:59 Heart failure, unspecified id [facility] [employer] [place] 2025-06-18 11:59 Chest pain, unspecified idbey [facility] 2025-06-22 14:09 Anxiety disorder, unspecified W [facility] [employer] [place] 2025-06-28 13:49 Heart failure, unspecified [facility] [employer] [place] 2025-06-28 13:49 Chest pain, unspecified idbey [facility] 2025-06-29 00:03 Heart failure, unspecified id jak [employer] [place] 2025-06-29 00:03 Chest pain, unspecified idbey [facility] 2025-06-29 14:08 Heart failure, unspecified [facility] [employer] [place] 2025-06-29 14:08 Chest pain, unspecified [facility] 2025-06-29 14:22 Dysuria [email or web address] 2025-06-29 14:35 Dysuria [email or web address] 2025-06-30 00:05 Dysuria [email or web address] 2025-07-03 13:07 Anemia, unspecified [facility] 2025-07-03 13:07 Type 2 diabetes mellitus withou t complications [facility] 2025-[facility]03 13:07 Hypo-osmolality and hyponatremi a [facility] 2025-07-03 13:07 Acidosis, unspecified [facility] 2025-07-03 13:07 Hypokalemia [facility] 2025-07-03 13:07 Alcohol abuse with intoxication , unspecified [facility] 2025-07-03 13:07 Alcohol dependence with withdra wal, unspecified [facility] 2025-07-03 13:07 Alcohol use, unspecified, uncom plicated [facility] 2025-07-03 13:07 Alcohol use, unspeci fied with withdrawal, uncomplicated [facility] 2025-07-03 13:07 Alcohol use, unspecified with w ithdrawal, unspecified [facility] 2025-07-03 13:07 Depression, unspecified [facility] 2025-07-03 13:07 Acute pharyngitis, unspecified [facility] 2025-07-03 13:07 Chronic obstructive pulmonary d isease, unspecified [facility] 2025-07-03 13:07 Erythema intertrigo [facility] 2025-07-03 13:07 Pain in left hip [facility] 2025-07-03 13:07 Urinary tract infection, site n ot specified [facility] 2025-07-03 13:07 Nausea with vomiting, unspecifi ed [facility] 2025-07-03 13:07 Other skin changes [facility] 2025-07-03 13:07 Tremor, unspecified [facility] 2025-07-03 13:07 Cramp and spasm [facility] 2025-07-03 13:07 Dysuria [facility] 2025-07-03 13:07 Hematuria, unspecified [facility] 2025-07-03 13:07 Altered mental status, unspecif ied [facility] 2025-07-03 13:07 Suicidal ideations [facility] 2025-07-03 13:07 Other symptoms and s igns involving appearance and behavior [facility] 2025-07-03 13:07 Headache, unspecified [facility] 2025-07-03 13:07 Other malaise [facility] 2025-07-03 13:07 Fracture of unspecif ied metatarsal bone(s), unspecified foot, initial encounter for closed fracture [facility] 2025-07-03 13:07 Unspecified fracture of left foot, initial encounter for closed fracture [facility] 2025-07-03 13:07 Unspecified fracture of unspecified toe(s), initial encounter for closed fracture [facility] 2025-07-03 13:07 Unspecified injury of right dia t, [facility] 13:07 History of falling [facility] 2025-07-03 14:57 [facility] 2025-07-17 09:15 Anemia, unspecified [facility] 2025-07-17 09:15 Type 2 diabetes mellitus withou t complications [facility] 2025-07-17 09:15 Hypo-osmolality and hyponatremi a [facility] 2025-07-17 09:15 Acidosis, unspecified [facility] 2025-07-17 09:15 [facility]okalemia [facility] 2025-07-17 09:15 Alcohol abuse with intoxication , unspecified [facility] 2025-07-17 09:15 Alcohol dependence, uncomplicat ed [facility] 2025-07[facility]17 09:15 Alcohol dependence with withdra wal, unspecified [facility] 2025-07-17 09:15 Alcohol use, unspecified, uncom plicated [facility] 2025-07-17 09:15 Alcohol use, unspeci fied with withdrawal, uncomplicated [facility] 2025-07-17 09:15 Alcohol use, unspecified with w ithdrawal, unspecified [facility] 2025-07-17 09:15 Cannabis use, unspecified, unco mplicated [facility] 2025-07-17 09:15 Nicotine dependence, cigarettes , uncomplicated [facility] 2025-07[facility]17 09:15 Bipolar disorder, current episo de depressed, moderate [facility] 2025-07-17 09:15 Depression, unspecified [facility] 2025-07-17 09:15 Post-traumatic stress disorder, unspecified [employer] 2025-07-17 09:15 Borderline personality disorder [facility] 2025-07-17 09:15 Acute pharyngitis, unspecified [facility] 2025-07-17 09:15 Chronic obstructive pulmonary d isease, unspecified [facility] 2025-07-17 09:[address] 2025-07-17 09:15 Pain in left hip [facility] 2025-07-17 09:15 Urinary tract infection, site n ot specified [facility] 2025-07-17 09:15 Nausea with vomiting, unspecifi ed [facility] 2025-07-17 09:15 Other skin changes [facility] 2025-07-17 09:15 Tremor, unspecified [facility]an alberto [facility] 2025-07-17 09:15 Cramp and spasm [facility] 2025-07-17 09:15 Hematuria, unspecified [facility] 2025-07-17 09:15 Altered mental status, unspecif ied [facility] 2025-07-17 09:15 Suicidal ideations [facility] 2025-07-17 09:15 Other symptoms and s igns involving appearance and behavior [facility] 2025-07-17 09:15 Headache, unspecified [facility] 2025-07-17 09:15 Other malaise [facility] 2025-07-17 09:15 Fracture of unspecif ied metatarsal bone(s), unspecified foot, initial encounter for closed fracture [facility] 2025-07-17 09:15 Unspecified fracture of left foot, initial encounter for closed fracture [facility] 2025-07-17 09:15 Unspecified fracture of unspecified toe(s), initial encounter for closed fracture [facility] 2025-07-17 09:15 Unspecified injury of right dia t, initial encounter [facility] 2025-07-17 09:15 Persons encountering health services in other specified circumstances [facility] 2025-07-17 09:15 History of falling [facility] 2025-07-17 09:21 Anemia, unspecified [facility] 2025-07-17 09:21 Type 2 diabetes mellitus withou t complications [facility] 2025-07-17 09:21 Hypo-osmolality and hyponatremi a [facility] 2025-07-17 09:21 Acidosis, unspecified [facility] 2025-07-17 09:21 Hypokalemia [facility] 2025-07-17 09:21 Alcohol abuse with intoxication , unspecified [facility] 2025-07-17 09:21 Alcohol dependence, uncomplicat ed [facility] 2025-07-17 09:21 Alcohol dependence with withdra wal, unspecified [facility] 2025-07-17 09:21 Alcohol use, unspecified, uncom plicated [facility] 2025-07-17 09:21 Alcohol use, unspeci fied with withdrawal, uncomplicated [facility] 2025-07-17 09:21 Alcohol use, unspecified with w ithdrawal, unspecified [facility] 2025-07-17 09:21 Cannabis use, unspecified, unco mplicated [facility] 2025-07-17 09:21 Nicotine dependence, cigarettes , uncomplicated [facility] 2025-07-17 09:21 Bipolar disorder, current episo de depressed, moderate [facility] 2025-07-17 09:21 Depression, unspecified [facility] 2025-07-17 09:21 Post-traumatic stress disorder, unspecified [facility] 2025-07-17 09:21 Borderline personality disorder [facility] 2025-07-17 09:21 Acute pharyngitis, unspecified [facility] 2025-07-17 09:21 Chronic obstructive pulmonary d isease, unspecified [facility] 2025-07-17 09:21 Erythema intertrigo [facility] 2025-07-17 09:21 Pain in left hip [facility] 2025-07-17 09:21 Urinary tract infection, site n ot specified [facility] 2025-07-17 09:21 Nausea with vomiting, unspecifi ed [facility] 2025-07-17 09:21 Other skin changes [facility] 2025-07-17 09:21 Tremor, unspecified [facility] 2025-07-17 09:21 [facility]asm [facility] 2025-07-17 09:21 Hematuria, unspecified [facility] 2025-07-17 09:21 Altered mental status, unspecif ied [facility] 2025-07-17 09:21 Suicidal ideations [facility] 2025-07-17 09:21 Other symptoms and s igns involving appearance and behavior [facility] 2025-07-17 09:21 Headache, unspecified [facility] 2025-07-17 09:21 Other malaise [facility] 2025-07[facility]17 09:21 Fracture of unspecif ied metatarsal bone(s), unspecified foot, initial encounter for closed fracture [facility] 2025-07-17 09:21 Unspecified fracture of left foot, initial encounter for closed fracture [facility] 2025-07-17 09:21 Unspecified fracture of unspecified toe(s), initial encounter for closed fracture [facility] 2025-07-17 09:21 Unspecified injury of right dia t, [facility] encounter [facility] 2025-[facility]17 09:21 Persons encountering health services in other specified circumstances [facility] 2025-07[facility]17 09:21 [facility] of falling [facility] Results/Labs test date facility value unit notes Result panel 1 CEFAZOLIN 2025-05-23 17:11 [facility] (missing) (missing) (missing) CIPROFLOXACIN 2025-05-23 17:11 [facility] <=0.25 (missing) (missing) GENTAMICIN 2025-05-23 17:11 [facility] <=1 (missing) (missing) TOBRAMYCIN 2025-05-23 17:11 [facility] <=1 (missing) (missing) NITROFURANTOIN 2025-05-23 17:11 [facility] <=16 (missing) (missing) IMIPENEM 2025-05-23 17:11 [facility] 0.5 (missing) (missing) CUL, URINE 2025-05-23 17:11 [facility] 100>100,000 CFU/mL (missing) (missing) CUL, URINE 2025-05-23 17:11 [facility] Beta-lactamase. Isolates that are initially susceptible may (missing) (missing) O:CITBRA 2025-05-23 17:11 [facility] CITBRACITROBACTER BRAAKIICITROBACTER BRAAKII (missing) (missing) CUL, URINE 2025-05-23 17:11 [facility] GNGRAM NEGATIVE GROWTH TO BE FURTHER IDENTIFIED (missing) (missing) CUL, URINE 2025-05-23 17:11 [facility] GNRGRAM NEGATIVE DYLLAN TO BE FURTHER IDENTIFIED (missing) (missing) CUL, URINE 2025-05-23 17:11 [facility] IDMIC.1ORG 1 ID/JOSE COM* (missing) (missing) CUL, URINE 2025-05-23 17:11 [facility] Isolates of Enterobacter, Citrobacter, and Serratia may (missing) (missing) CUL, URINE 2025-05-23 17:11 [facility] ORG.1PRELIM ORG ID* (missing) (missing) CUL, URINE 2025-05-23 17:11 [facility] Pending (missing) (missing) CUL, URINE 2025-05-23 17:11 [facility] UCC.1ORG 1 CC* (missing) (missing) CUL, URINE [facility]25-05-23 [facility] (missing[facility] CUL, URINE 2025-05-23 17:11 [facility] YIDENTIFICATION AND SENSITIVITIES TO FOLLOW (missing) (missing) CUL, URINE 2025-05-23 17:11 [facility] become resistant within 3 to 4 days of initiation of (missing) (missing) CUL, URINE 2025-05-23 17:11 [facility] develop resistance during prolonged therapy with third (missing) (missing) CUL, URINE 2025-05-23 17:11 [facility] generation cephalosporins as a result of depression of AmpC (missing) (missing) CUL, URINE 2025-05-23 17:11 [facility] therapy. (missing) (missing) Result panel 2 NUCLEATED RED BLOOD CELLS AUTO 2025-06-13 10:30 [facility] 0.0 /100wbc (missing) NRBC ABSOLUTE COUNT (AUTO) 2025-06-13 10:30 [facility] 0.00 x10 3/ul (missing) BASOPHILS # (AUTO) 2025-06-13 10:30 [facility] 0.1 10 3/ul (missing) EOSINOPHILS # (AUTO) 2025-06-13 10:30 [facility] 0.3 10 3/ul (missing) BILIRUBIN,TOTAL 2025-06-13 10:30 [facility] 0.3 mg/dl As of April 2023 testing method has changed, this may include reference ranges. MONOCYTES # (AUTO) 2025-06-13 10:30 [email or web address] 0.4 10 3/ul (missing) CREATININE 2025-06-13 10:30 [facility] 0.5 mg/dl As of April 2023 testing method has changed, this may include reference ranges. ALBUMIN/GLOBULIN RATIO 2025-06-13 10:30 [facility] 1.2 (missing) (missing) MICROALBUMIN,URINE 2025-06-13 10:30 [facility] 1.2 mg/dl [place] [employer] Definition of Moderately increased urine [...] include reference ranges. LDL/HDL RATIO 2025-06-13 10:30 [facility] 1.3 (missing) (missing) ESTIMATED AVERAGE GLUCOSE 2025-06-13 10:30 [facility] 111 mg/dl (missing) GFR - MDRD 2025-06-13 10:30 [facility] 124 (missing) The IDMS-traceable MDRD Study Equation [...] December 2011. HGB - HEMOGLOBIN 2025-06-13 10:30 [facility] 13.8 g/dl (missing) SODIUM 2025-06-13 10:30 [facility] 134 mmol/l Unknown RED CELL DISTRIBUTION WIDTH 2025-06-13 10:30 [facility] 15.8 % (missing) CHOLESTEROL 2025-06-13 10:30 [facility] 156 mg/dl Total Cholesterol Risk Classification Cholesterol Level Risk Classification <200 mg/dL Desirable 200-239 mg/dL Borderline High >240 mg/dL High As of April 2023 testing method has changed, this may include reference ranges. BNP - B-NATRIURETIC PEPTIDE 2025-06-13 10:30 [facility] 16 pg/ml (missing) ALT ALANINE AMINOTRANSFERASE 2025-06-13 10:30 [facility] 18 iu/l As of April 2023 testing method has changed, this may include reference ranges. MICROALBUM/CREATININE RATIO,UR 2025-06-13 10:30 [facility] 181.8 ug/mg (missing) LYMPHOCYTES # (AUTO) 2025-06-13 10:30 [facility] 2.1 10 3/ul (missing) CHOL/HDL RATIO 2025-06-13 10:30 [facility] 2.5 (missing) NATIONAL CHOLESTEROL GUIDELINE NATIONAL HEART, [...] 13.5 11.0 VITAMIN D 25-HYDROXY 2025-06-13 10:30 [facility] 20.0 ng/ml Vitamin D deficiency has been defined by the Bells of [employer] and an Endocrine Society practice guideline as a level of serum 25-OH vitamin D less than 20 ng/mL (1,2). The Endocrine Society went on to further define vitamin D insufficiency as a level between 21 and 29 ng/mL (2). 1. IOM (Bells of Medicine). 2010. Dietary reference intakes for calcium and D. [place]: The National Academies Press. 2. [place], [place], Luan ROBLERO, et al. Evaluation, treatment, and prevention of vitamin D deficiency: an Endocrine Society clinical practice guideline. JCEM. 2010; 96(7):1911-30. Performed at: [facility] [address] [id number] [employer] Worker: Don Hamm MD, Phone: [phone] AST ASPARTATE AMINOTRANSFERASE 2025-06-13 10:30 [facility] 22 iu/l As of April 2023 testing method has changed, this may include reference ranges. VITAMIN B12 2025-06-13 10:30 [facility] 267 pg/ml VITAMIN B12 RANGES: NORMAL 180 - 914 INDETERMINATE 145 -180 DEFICIENT < 145 CARBON DIOXIDE - CO2 2025-06-13 10:30 [facility] 28 mmol/l As of April 2023 testing method has changed, this may include reference ranges. MEAN CORPUSCULAR HEMOGLOBIN 2025-06-13 10:30 [facility] 29.4 pg (missing) GLOBULIN 2025-06-13 10:30 [facility] 3.6 g/dl (missing) POTASSIUM 2025-06-13 10:30 [facility] 3.9 mmol/l As of April 2023 testing method has changed, this may include reference ranges. MEAN CORPUSCULAR HGB CONC 2025-06-13 10:30 [facility] 33.0 g/dl (missing) PLT - PLATELET COUNT 2025-06-13 10:30 [facility] 340 10 3/ul (missing) ALBUMIN 2025-06-13 10:30 [facility] 4.2 g/dl As of April 2023 testing method has changed, this may include reference ranges. NEUTROPHILS # (AUTO) 2025-06-13 10:30 [facility] 4.3 10 3/ul (missing) RED BLOOD COUNT 2025-06-13 10:30 [facility] 4.69 10 6/ul (missing) HCT - HEMATOCRIT 2025-06-13 10:30 [facility] 41.8 % (missing) TRIGLYCERIDES 2025-06-13 10:30 [facility] 47 mg/dl Unknown Triglyceride Risk Classification <150 mg/dL Normal 150-199 mg/dL Borderline High 200-499 mg/dL High >500 mg/dL Very High As of April 2023 testing method has changed, this may include reference ranges. HEMOGLOBIN A1c% 2025-06-13 10:30 [facility] 5.5 % The [place] Diabetes [employer] (ADA) has made the following recommendations: Monitoring HbA1c in Diabetic Patients: A1c (NGSP%) Goal <8 Less Stringent Goal <7 General Goal <6.5 More Stringent Goal Diagnosis of Diabetes: A1c (NGSP%) Goal >6.5 Diabetic 5.7-6.4 Pre-Diabetic <5.7 Non-Diabetic CREATININE,URINE 2025-06-13 10:30 [facility] 6.6 mg/dl As of April 2023 testing method has changed, this may include reference ranges. HDL CHOLESTEROL 2025-06-13 10:30 [facility] 63 mg/dl Coronary Heart Disease Risk Classification HDL Level Risk factor < 40 mg/dL major risk > 60 mg/dL negative risk As of April 2023 testing method has changed, this may include reference ranges. ANION GAP 2025-06-13 10:30 [facility] 7.0 (missing) (missing) WHITE BLOOD COUNT 2025-06-13 10:30 [facility] 7.2 x10 3/ul (missing) TOTAL PROTEIN 2025-06-13 10:30 [facility] 7.8 g/dl As of April 2023 testing method has changed, this may include reference ranges. LDL CHOLESTEROL,CALCULATED 2025-06-13 10:30 [facility] 84 mg/dl LDLD REFERENCE RANGE AND CARDIOVASCULAR RISK: <130 mg/dL Desirable 130-159 mg/dL Borderline High Risk >160 mg/dL High Risk MEAN CORPUSCULAR VOLUME 2025-06-13 10:30 [facility] 89.1 fl (missing) VLDL CHOLESTEROL 2025-06-13 10:30 [facility] 9 mg/dl (missing) BUN - BLOOD UREA NITROGEN 2025-06-13 10:30 [facility] 9 mg/dl As of April 2023 testing method has changed, this may include reference ranges. CALCIUM 2025-06-13 10:30 [facility] 9.5 mg/dl As of April 2023 testing method has changed, this may include reference ranges. MEAN PLATELET VOLUME 2025-06-13 10:30 [facility] 9.7 fl (missing) ALKALINE PHOSPHATASE 2025-06-13 10:30 [facility] 93 iu/l As of April 2023 testing method has changed, this may include reference ranges. GLUCOSE 2025-06-13 10:30 [facility] 95 mg/dl As of April 2023 testing method has changed, this may include reference ranges. CHLORIDE 2025-06-13 10:30 [facility] 99 mmol/l As of April 2023 testing method has changed, this may include reference ranges. Result panel 3 CUL, URINE 2025-06-29 13:00 [facility] (missing) (missing) (missing) CEFAZOLIN 2025-06-29 13:00 [facility] >=64 (missing) (missing) CIPROFLOXACIN 2025-06-29 13:00 [facility] <=0.25 (missing) (missing) GENTAMICIN 2025-06-29 13:00 [facility] <=1 (missing) (missing) TOBRAMYCIN 2025-06-29 13:00 [facility] ([facility]) (missing) NITROFURANTOIN 2025-06-29 13:00 [facility] <=16 (missing) (missing) IMIPENEM 2025-06-29 13:00 [facility] 1 (missing) (missing) CUL, URINE 2025-06-29 13:00 [facility] 100>100,000 CFU/mL (missing) (missing) CUL, URINE 2025-06-29 13:00 [facility] 5050,000-100,000 CFU/mL (missing) (missing) CUL, URINE 2025-06-29 13:00 [facility] Beta-lactamase. Isolates that are initially susceptible may (missing) (missing) O:CITBRA 2025-06-29 13:00 [facility] CITBRACITROBACTER BRAAKIICITROBACTER BRAAKII (missing) (missing) CUL, URINE 2025-06-29 13:00 [facility] GNRGRAM NEGATIVE DYLLAN TO BE FURTHER IDENTIFIED (missing) (missing) CUL, URINE 2025-06-29 13:00 [facility] IDMIC.1ORG 1 ID/JOSE COM* (missing) (missing) CUL, URINE 2025-06-29 13:00 [facility] Isolates of Enterobacter, Citrobacter, and Serratia may (missing) (missing) CUL, URINE 2025-06-29 13:00 [facility] ORG.1PRELIM ORG ID* (missing) (missing) CUL, URINE 2025-06-29 13:00 [facility] Pending (missing) (missing) CUL, URINE 2025-06-29 13:00 [facility] UCC.1ORG 1 CC* (missing) (missing) CUL, URINE 2025-06-29 13:00 [facility] UCC.6COLONY COUNT (missing) (missing) CUL, URINE 2025-06-29 13:00 [facility] YIDENTIFICATION AND SENSITIVITIES TO FOLLOW (missing) (missing) CUL, URINE 2025-06-29 13:00 [facility] become resistant within 3 to 4 days of initiation of (missing) (missing) CUL, URINE 2025-06-29 13:00 [facility] develop resistance during prolonged therapy with third (missing) (missing) CUL, URINE 2025-06-29 13:00 [facility] [place] generation cephalosporins as a result of depression of AmpC (missing) (missing) CUL, URINE 2025-06-29 13:00 [facility] therapy. (missing) (missing) Result panel 4 MUDS CUTOFF CONCENTRATIONS 2025-08-21 18: [facility] CUTOFF CONC BELOW: (missing) [facility] uses the PROFILE-V [employer] Drugs of Abuse Test System. It detects drug classes at the following cutoff concentrations: AMP Amphetamine (d-Amphetamine) 500 ng/mL BAR Barbiturates (Butalbital) 200 ng/mL BZO Benzodiazepines (Nordiazepam) 150 ng/mL BUP Buprenorphine (Buprenorphine) 10 ng/mL REBECCA Cocaine (Benzoylecgonine) 150 ng/mL MAMP Methamphetamine (d-Methamphetamine) 500 ng/mL MTD Methadone (Methadone) 200 ng/mL OPI Opiates (Morphine) 100 ng/mL OXY Oxycodone (Oxycodone) 100 ng/mL PCP Phencyclidine (Phencyclidine) 25 ng/mL BUP Buprenorphine (Buprenorphine) 10 ng/mL THC Cannabinoids ([id number]) 50 ng/mL TCA Tricyclic Antidepressants (Desipramine) 300 ng/mL All drug screen results are unconfirmed. Results are to be used for medical (i.e. treatment) purposes only. Unconfirmed screening results must not be used for non-medical purposes (e.g., employment testing, legal testing). AMPHETAMINE SCREEN,URINE 2025-08-21 18:05 [facility] NEGATIVE (missing) (missing) BARBITURATE SCREEN,UR 2025-08-21 18:05 [facility] NEGATIVE (missing) (missing) BENZODIAZEPINES SCREEN, URINE 2025-08-21 18:05 [facility] NEGATIVE (missing) (missing) BUPRENORPHINE SCREEN, URINE 2025-08-21 18:05 [facility] NEGATIVE (missing) (missing) COCAINE SCREEN URINE 2025-08-21 18:05 [facility] NE[facility] ([facility]) (missing) METHADONE SCREEN, URINE 2025-08-21 18:05 [facility] NEGATIVE (missing) (missing) METHAMPHETAMINES SCREEN, URINE 2025-08-21 18:05 [facility] NEGATIVE (missing) (missing) OPIATE SCREEN, URINE 2025-08-21 18:05 [facility] NEGATIVE (missing) (missing) OXYCODONE SCREEN, URINE 2025-08-21 18:05 [facility] NEGATIVE (missing) (missing) PHENCYCLIDINE SCREEN, URINE 2025-08-21 18:05 [facility] NEGATIVE (missing) (missing) THC CANNABINOID SCREEN, URINE 2025-08-21 18:05 [facility] NEGATIVE (missing) (missing) TRICYCLIC ANTIDEPRESSANT,URI NE 2025-08-21 18:05 [facility] NEGATIVE (missing) (missing) FENTANYL SCREEN, URINE 2025-08-21 18:05 [facility] Negative (missing) [employer] uses L ZI Fentanyl (Q) Enzyme Immunoassay. RESULT INTERPRETATION: This [...] be used for non-medical or legal purposes. Result panel 5 NUCLEATED RED BLOOD CELLS AUTO 2025-08-21 18:14 [facility] 0.0 /100wbc (missing) EOSINOPHILS # (AUTO) 2025-08-21 18:14 [employer] [place] 0.0 10 3/ul (missing) NRBC ABSOLUTE COUNT (AUTO) 2025-08-21 18:14 [facility] 0.00 x10 3/ul (missing) BASOPHILS # (AUTO) 2025-08-21 18:14 [facility] 0.1 10 3/ul (missing) CREATININE 2025-08-21 18:14 [facility] 0.3 mg/dl As of April 2023 testing method has changed, this may include reference ranges. BILIRUBIN,TOTAL 2025-08-21 18:14 [facility] 0.5 mg/dl As of April 2023 testing method has changed, this may include reference ranges. MONOCYTES # (AUTO) 2025-08-21 18:14 [facility] 0.6 10 3/ul (missing) ALBUMIN/GLOBULIN RATIO 2025-08-21 18:14 [facility] 1.4 (missing) (missing) LYMPHOCYTES # (AUTO) 2025-08-21 18:14 [facility] 1.6 10 3/ul (missing) CK- CREATINE KINASE 2025-08-21 18:14 [facility] 1012 iu/l Critical result CK 1012 U/L called to and read back by ED/MARILEE WOOD at 21-Aug-2025 18:52 by _love. As of April 2023 testing method has changed, this may include reference ranges. HGB - HEMOGLOBIN 2025-08-21 18:14 [facility] 12.8 g/dl (missing) SODIUM 2025-08-21 18:14 [facility] 130 mmol/l (missing) ANION GAP 2025-08-21 18:14 [facility] 14.0 (missing) (missing) RED CELL DISTRIBUTION WIDTH 2025-08-21 18:14 [facility] 15.8 % (missing) PLT - PLATELET COUNT 2025-08-21 18:14 [facility] 181 10 3/ul (missing) MAGNESIUM 2025-08-21 18:14 [facility] 2.0 mg/dl As of April 2023 testing method has changed, this may include reference ranges. GLOBULIN 2025-08-21 18:14 [facility] 2.9 g/dl (missing) GFR - MDRD 2025-08-21 18:14 [facility] 224 (missing) The IDMS-traceable MDRD Study Equation has [...] caring for patients older than 70. References: http://www.nkdep.n [place].gov/lab-evaluat ion/gfr/creatinine -stand ardization, last updated December 2011. CARBON DIOXIDE - CO2 2025-08-21 18:14 [facility] 23 mmol/l As of April 2023 testing method has changed, this may include reference ranges. MEAN CORPUSCULAR HEMOGLOBIN 2025-08-21 18:14 [facility] 26.3 pg (missing) POTASSIUM 2025-08-21 18:14 [facility] 3.8 mmol/l As of April 2023 testing method has changed, this may include reference ranges. MEAN CORPUSCULAR HGB CONC 2025-08-21:14 [facility] 32.2 g/dl (missing) HCT - HEMATOCRIT 2025-08-21 18:14 [facility] 39.7 % (missing) ALBUMIN 2025-08-21 18:14 [facility] 4.0 g/dl As of April 2023 testing method has changed, this may include reference ranges. RED BLOOD COUNT 2025-08-21:14 [facility] 4.87 10 6/ul (missing) ETOH - ETHANOL 2025-08-21:14 [facility] 405.4 mg/dl Blood Alcohol Levels Level Sporadic Drinkers Chronic drinkers === = 100 mg/dL Legally intoxicated* Minimal signs 200-250 mg/dL Alertness lost, Effort needed to becoming lethargic maintain emotional and motor control 300-350 mg/dL Stupor to coma Drowsy and slow >500 mg/dL Possible Coma *The legal definition of intoxication varies. This assy is for medical decision making only. As of April 2023 testing method has changed, this may include reference ranges. ALT ALANINE AMINOTRANSFERASE 2025-08-21 18:14 [facility] 49 iu/l As of April 2023 testing method has changed, this may include reference ranges. BUN - BLOOD UREA NITROGEN 2025-08-21 18:14 [facility] [place] 5 mg/dl As of April 2023 testing method has changed, this may include reference ranges. NEUTROPHILS # (AUTO) 2025-08-21 18:14 [facility] [employer] [place] 5.7 10 3/ul (missing) TOTAL PROTEIN 2025-08-21 18:14 [facility] 6.9 g/dl As of April 2023 testing method has changed, this may include reference ranges. CALCIUM 2025-08-21 18:14 [facility] [place] 8.0 mg/dl As of April 2023 testing method has changed, this may include reference ranges. WHITE BLOOD COUNT 2025-08-21 18:14 [facility] [place] 8.0 x10 3/ul (missing) MEAN PLATELET VOLUME 2025-08-21 18:14 [facility] [place] 8.8 fl (missing) MEAN CORPUSCULAR VOLUME 2025-08-21 18:14 [facility] [place] 81.5 fl (missing) AST ASPARTATE AMINOTRANSFERASE 2025-08-21 18:14 [facility] 84 iu/l As of April 2023 testing method has changed, this may include reference ranges. ALKALINE PHOSPHATASE 2025-08-21 18:14 [facility] 89 iu/l As of April 2023 testing method has changed, this may include reference ranges. CHLORIDE 2025-08-21 18:14 [facility] [place] 93 mmol/l As of April 2023 testing method has changed, this may include reference ranges. GLUCOSE 2025-08-21 18:14 [facility] 97 mg/dl As of April 2023 testing method has changed, this may include reference ranges. Result panel 6 SARS-CoV-2 -RESP PCR PANEL 2025-08-22 08:27 [facility] NOT DETECTED (missing) A negative test result for this test indicates that SARS-CoV-2 RNA was not present in the specimen above the limit of detection. Testing performed on the [employer] RP2.1 Panel, a multiplexed nucleic acid repiratory [...] inhibitors, and/or mutation in the SARS-CoV-2 virus. INFLUENZA A- RESP PCR PANEL 2025-08-22 08: [facility] NOT DETECTED (missing) Influenza A including subtypes H1, H3, and H1-2009 not detected by the [employer] RP2.1 Panel, a multiplexed nucleic acid test intended for the simultaneous qualitative detection and differentiation of nucleic acids from multiple viral and bacterial respiratory organisms. B. PARAPERTUSSIS- RESP PCR EVANS 2025-08-22 08:27 [facility] NOT DETECTED (missing) Negative results for this organism do not preclude infection with this organism and may require additional laboratory testing (e.g., bacterial and viral culture, immunofluorescence, and radiography) when evaluating a patient with possible respiratory tract infection. B. PERTUSSIS- RESP PCR PANEL 2025-08-22 08: [facility] [place] NOT DETECTED (missing) Negative results for this organism do not preclude infection with this organism and may require additional laboratory testing (e.g., bacterial and viral culture, immunofluorescence, and radiography) when evaluating a patient with possible respiratory tract infection. C. PNEUMONIAE- RESP PCR PANEL 2025-08-22 08: [email or web address] NOT DETECTED (missing) Negative results for this organism do not preclude infection with this organism and may require additional laboratory testing (e.g., bacterial and viral culture, immunofluorescence, and radiography) when evaluating a patient with possible respiratory tract infection. M. PNEUMONIAE- RESP PCR PANEL 2025-08-22 08:27 [email or web address] NOT DETECTED (missing) Negative results for this organism do not preclude infection with this organism and may require additional laboratory testing (e.g., bacterial and viral culture, immunofluorescence, and radiography) when evaluating a patient with possible respiratory tract infection. CORONAVIRUS 229E-RESP PCR 2025-08-22 08:27 [facility] NOT DETECTED (missing) Negative results in the setting ofa respiratory illness may be due to infection with pathogens not detected by this test, or lower respiratory tract infection that may not be detected by nasopharyngeal specimen. CORONAVIRUS HKU1-RESP PCR 2025-08-22 08:27 [facility] NOT DETECTED (missing) Negative results in the setting ofa respiratory illness may be due to infection with pathogens not detected by this test, or lower respiratory tract infection that may not be detected by nasopharyngeal specimen. CORONAVIRUS [id number] PCR 2025-08-22 08:27 [facility] NOT DETECTED (missing) Negative results in the setting ofa respiratory illness may be due to infection with pathogens not detected by this test, or lower respiratory tract infection that may not be detected by nasopharyngeal specimen. CORONAVIRUS [id number]-[id number] PCR 2025-08-22 08:27 [facility] NOT DETECTED (missing) Negative results in the setting ofa respiratory illness may be due to infection with pathogens not detected by this test, or lower respiratory tract infection that may not be detected by nasopharyngeal specimen. HUMAN METAPNEUMOVIRUS 2025-08-22 08:27 [facility] NOT DETECTED (missing) Negative results in the setting ofa respiratory illness may be due to infection with pathogens not detected by this test, or lower respiratory tract infection that may not be detected by nasopharyngeal specimen. INFLUENZA B - RESP PCR PANEL 2025-08-22 08:27 [facility] NOT DETECTED (missing) Negative results in the setting ofa respiratory illness may be due to infection with pathogens not detected by this test, or lower respiratory tract infection that may not be detected by nasopharyngeal specimen. PARAINFLUENZA VIRUS 1 2025-08-22 08:27 [facility] NOT DETECTED (missing) Negative results in the setting ofa respiratory illness may be due to infection with pathogens not detected by this test, or lower respiratory tract infection that may not be detected by nasopharyngeal specimen. PARAINFLUENZA VIRUS 2 2025-08-22 08:27 [facility] NOT DETECTED (missing) Negative results in the setting ofa respiratory illness may be due to infection with pathogens not detected by this test, or lower respiratory tract infection that may not be detected by nasopharyngeal specimen. PARAINFLUENZA VIRUS 3 2025-08-22 08:27 [facility] NOT DETECTED (missing) Negative results in the setting ofa respiratory illness may be due to infection with pathogens not detected by this test, or lower respiratory tract infection that may not be detected by nasopharyngeal specimen. PARAINFLUENZA VIRUS 4 2025-08-22 08:27 [facility] NOT DETECTED (missing) Negative results in the setting ofa respiratory illness may be due to infection with pathogens not detected by this test, or lower respiratory tract infection that may not be detected by nasopharyngeal specimen. RHINOVIRUS/ENTEROVI NURIA 2025-08-22 08:27 [facility] NOT DETECTED (missing) Negative results in the setting ofa respiratory illness may be due to infection with pathogens not detected by this test, or lower respiratory tract infection that may not be detected by nasopharyngeal specimen. RSV- RESP PCR PANEL 2025-08-22 08:27 [facility] NOT DETECTED (missing) Negative results in the setting ofa respiratory illness may be due to infection with pathogens not detected by this test, or lower respiratory tract infection that may not be detected by nasopharyngeal specimen. ADENOVIRUS - RESP PCR PANEL 2025-08-22 08:27 [facility] NOT DETECTED (missing) UNKNOWN Y NO YES NO NO NO NO Negative results in the setting ofa respiratory illness may be due to infection with pathogens not detected by this test, or lower respiratory tract infection that may not be detected by nasopharyngeal specimen. Social History date description facility
[2025-08-22] MEDS: KETOROLAC 15 MG/ML VIAL IVP STA (18:11)
[2025-08-22] MEDS: ONDANSETRON 4 MG/2 ML VIAL IVP PRN (18:12)
[2025-08-22] MEDS ORDERED: IPRATROPIUM/ALBUTEROL 3 ML NEB INH PRN (19:00)
[2025-08-22] MEDS: THIAMINE 100 MG/1 ML 2 ML MDV IVP SCH (19:06)
[2025-08-22] MEDS: SODIUM CHLORIDE FLUSH 0.9% 10 ML SYRINGE IVP SCH (19:06)
[2025-08-22] MEDS: LORazepam 2 MG/ML VIAL IVP PRN (19:07)
[2025-08-22] MEDS: FAMOTIDINE 20 MG/2 ML VIAL IVP SCH (20:39)
[2025-08-22] MEDS: cefTRIAXone 2 GM in SODIUM CHLORIDE 0.9% MINIBAG 100 ML IV STA (22:11)
[2025-08-23 07:08] LABS: HCT - HEMATOCRIT 32.2 % (37.0-47.0); HGB - HEMOGLOBIN 10.2 g/dL (12.0-16.0); MEAN PLATELET VOLUME 9.2 fL (7.9-10.8); PLT - PLATELET COUNT 145.0 10^3/uL (130-450); RED CELL DISTRIBUTION WIDTH 15.9 % (12.0-15.0)
[2025-08-23 07:28] LABS: ALT ALANINE AMINOTRANSFERASE 35.0 IU/L (10-60); AST ASPARTATE AMINOTRANSFERASE 56.0 IU/L (10-42); BUN - BLOOD UREA NITROGEN 8.0 mg/dL (6-20); CARBON DIOXIDE - CO2 25.0 mmol/L (21-32); CREATININE 0.3 mg/dL (0.6-1.3); GFR - MDRD 224.0 (>89)
[2025-08-23] MEDS ORDERED: MAGNESIUM SULFATE 1 GM/2 ML VIAL IVP STA (07:31)
--- NOTE | 2025-08-23 07:45 | PROVIDER PROGRESS NOTE ---
Subjective Subjective Subjective: This morning, patient continues to be a little shaky. She does feel little bit better than yesterday. She states that she wears 3 to 4 L of oxygen at home typically. She denies any shortness of breath, cough, fevers, chills. Current Medications Current Medications Current Medications: Current Medications Generic Name Dose Route Start Last Admin Trade Name Freq PRN Reason Stop Dose Admin Acetaminophen 650 mg 08/22/25 17:04 Acetaminophen 325 Mg Tablet PO Q4HR PRN Pain 1 to 4, or Fever Albuterol/Ipratropium 3 ml 08/22/25 19:00 Ipratropium/Albuterol 3 Ml Neb INH Q4HR PRN Wheezing Amlodipine Besylate 5 mg 08/23/25 09:00 Amlodipine 5 Mg Tablet PO DAILY CALIXTO Duloxetine HCl 60 mg 08/21/25 21:00 08/22/25 20:39 Duloxetine 60 Mg Capsule PO 60 mg QPM CALIXTO Administration Enoxaparin Sodium 40 mg 08/23/25 09:00 Enoxaparin 40 Mg/0.4 Ml Syringe SUBQ DAILY CALIXTO Famotidine 20 mg 08/22/25 21:00 08/22/25 20:39 Famotidine 20 Mg/2 Ml Vial IVP 20 mg BID CALIXTO Administration Magnesium Sulfate 2 gm in 50 mls @ 25 mls/hr 08/23/25 08:00 Magnesium Sulfate IV 08/23/25 09:59 ONCE ONE Lorazepam 1 mg 08/22/25 18:01 08/23/25 06:31 Lorazepam 2 Mg/Ml Vial IVP 1 mg Q30M PRN Administration CIWA >8 Protocol Non-Formulary Medication 20 mg 08/23/25 21:00 Simvastatin PO QPM CALIXTO Ondansetron HCl 4 mg 08/22/25 17:04 08/22/25 18:12 Ondansetron 4 Mg/2 Ml Vial IVP 4 mg Q6HR PRN Administration Nausea / Vomiting Multivit/Folic Acid/Iron 1 tab 08/23/25 09:00 Vitamin Tablet PO DAILY CALIXTO Prochlorperazine Edisylate 10 mg 08/22/25 17:04 Prochlorperazine 10 Mg/2 Ml Vial IVP Q6HR PRN Nausea / Vomiting Quetiapine Fumarate 50 mg 08/21/25 21:00 08/22/25 20:39 Quetiapine 25 Mg Tablet PO 50 mg QPM CALIXTO Administration Sodium Chloride 10 ml 08/22/25 17:04 Sodium Chloride Flush 0.9% 10 Ml Syringe IVP PRN PRN NEEDED PER PROVIDER ORDERS Sodium Chloride 10 ml 08/22/25 17:04 08/23/25 01:45 Sodium Chloride Flush 0.9% 10 Ml Syringe IVP 10 ml 0100,0900,1700 CALIXTO Administration Thiamine HCl 500 mg 08/22/25 17:00 08/23/25 06:13 Thiamine 100 Mg/1 Ml 2 Ml Mdv IVP 08/24/25 06:01 500 mg TID CALIXTO Administration Trazodone HCl 50 mg 08/21/25 21:00 08/22/25 20:38 Trazodone 50 Mg Tablet PO 50 mg QPM CALIXTO Administration Trazodone HCl 50 mg 08/23/25 21:00 Trazodone 50 Mg Tablet PO HS CALIXTO Objective Vital Signs/Intake & Output Vital Signs: Vital Signs x48h Temp Pulse Resp BP Pulse Ox O2 Flow Rate 08/23/25 04:19 97.7 F 95 22 146/85 H 92 4 08/22/25 23:54 92 3 08/22/25 23:53 98.8 F 104 H 24 157/81 H 90 L 2 Intake & Output: Intake & Output 08/20/25 08/21/25 08/22/25 08/23/25 23:59 23:59 23:59 23:59 Intake Total 1100 / 1100 Output Total 275 / 275 450 / 450 Balance 825 / 825 -450 / -450 Weight (kg) 63.503 kg 64 kg Objective Comments/Other: Constitutional average body habitus and alert Appears older than stated age. Very tremulous. Alert and oriented. [facility] normocephalic and dentition abnormal other (dental caries, missing teeth noted) Bruising on left lower face, as well as left scalp. Small hematoma noted. Eyes PERRL, EOMs intact bilaterally, conjunctivae normal and nystagmus noted (horizontal) Neck/C-Spine visual inspection normal and cervical spine nontender Chest inspection of chest normal Respiratory breath sounds equal bilaterally, normal respiratory effort, clear to auscultation bilaterally, no wheezes, no rales and no retractions Cardiovascular normal heart rate noted, regular rhythm noted, no gallop, no rub and no murmur Gastrointestinal abdomen normal to inspection, abdomen soft to palpation, nontender to palpation and normoactive bowel sounds Genitourinary no CVA tenderness and bladder normal to palpation Back/Pelvis spine normal to inspection, no thoracic spine tenderness and no lumbar spine tenderness Extremities normal to inspection, normal to palpation, no tenderness and full ROM Bilateral tremors noted in hands. At rest, and with intentional movement. Neurology no movement abnormality noted and no focal motor deficit noted Psychiatry mental status grossly normal, oriented x3, thought process normal, cooperative and affect normal Some confabulations noted. Skin skin color normal, no rash, no lesions and no wounds Lab Results 08/23/25 07:00 08/23/25 07:00 Other Labs: Lab Results x24hrs 08/23/25 08/22/25 08/22/25 Range/Units 07:00 16:45 08:27 WBC 6.6 (4.8-10.8) x10^3/uL RBC 3.80 L (4.20-5.40) 10^6/uL Hgb 10.2 L (12.0-16.0) g/dL Hct 32.2 L (37.0-47.0) % MCV 84.7 (81.0-99.0) fL MCH 26.8 L (27.0-31.0) pg MCHC 31.7 L (32.0-36.0) g/dL RDW 15.9 H (12.0-15.0) % Plt Count 145 (130-450) 10^3/uL MPV 9.2 (7.9-10.8) fL Sodium 128 L (135-145) mmol/L Potassium 3.5 (3.5-4.5) mmol/L Chloride 93 L (101-111) mmol/L Carbon Dioxide 25 (21-32) mmol/L Anion Gap 10.0 (6-13) BUN 8 (6-20) mg/dL Creatinine 0.3 L (0.6-1.3) mg/dL Estimated GFR (MDRD) 224 (>89) Glucose 81 (74-104) mg/dL Calcium 8.1 L (8.5-10.3) mg/dL Magnesium 1.6 L (1.7-2.3) mg/dL Total Bilirubin 0.7 (0.2-1.0) mg/dL AST 56 H (10-42) IU/L ALT 35 (10-60) IU/L Alkaline Phosphatase 71 (42-121) IU/L Lactate Dehydrogenase 216 (140-271) IU/L Total Protein 6.0 L (6.4-8.9) g/dL Albumin 3.3 (3.2-5.5) g/dL Globulin 2.7 (2.1-4.2) g/dL Albumin/Globulin Ratio 1.2 (1.0-2.2) Procalcitonin Immunoas 0.08 (<0.5) ng/mL Nasal Adenovirus (PCR) NOT DETECTED Nasal B. parapertussis DNA (PCR) NOT DETECTED Nasal Coronavir 229E PCR NOT DETECTED Nasal Coronavir HKU1 PCR NOT DETECTED Nasal Coronavir NL63 PCR NOT DETECTED Nasal Coronavir OC43 PCR NOT DETECTED Nasal Enterovir/Rhinovir PCR NOT DETECTED Nasal Influenza B PCR NOT DETECTED Nasal Influenza A PCR NOT DETECTED Nasal Parainfluen 1 PCR NOT DETECTED Nasal Parainfluen 2 PCR NOT DETECTED Nasal Parainfluen 3 PCR NOT DETECTED Nasal Parainfluen 4 PCR NOT DETECTED Nasal RSV (PCR) NOT DETECTED Nasal B.pertussis DNA PCR NOT DETECTED Nasal C.pneumoniae (PCR) NOT DETECTED Hebert Human Metapneumo PCR NOT DETECTED Nasal M.pneumoniae (PCR) NOT DETECTED Nasal SARS-CoV-2 (PCR) NOT DETECTED Assessment/Plan Problem List (1) Acute metabolic encephalopathy: (2) Wernicke encephalopathy: (3) Acute hyperactive alcohol withdrawal delirium: Impression: The following plan is for the above two assessments: Patient presented with acute confusion. [employer] social worker had called for a welfare check as patient had been on a cruz and then falling frequently at home. Alcohol level was greater than 400. Patient appears to be in acute alcohol withdrawal, CIWA improved from 16 to 8- 11 this morning. Continue Ativan as needed. She also presents with an ataxic gait, altered mentation, as well as some horizontal nystagmus noted on exam. Concern for Wernickes. Continue high-dose IV thiamine supplementation with IV thiamine 500 mg 3 times daily for 48 hours. Continue vitamin. Social work will be consulted for further counseling. Patient is interested in rehab and resources. PT evaluation ordered. (4) Hyponatremia: Impression: Continue IVF. Hypovolemic hyponatremia due to decreased p.o. intake while drinking alcohol versus beer potomania, and decreased solute intake in the last few days. Encourage P.O. intake. (5) High anion gap metabolic acidosis: Impression: Due to alcoholic ketosis. Continue to trend. Continue IVF. (6) Elevated CPK: Impression: Normal kidney function, patient is urinating appropriately. Continue IVF. (7) Anxiety and depression: (8) Alcoholism: (9) Bipolar II disorder: Impression: The following plan is for the above 3 diagnoses: Last behavioral health note reviewed from 07/28. Patient carries a diagnosis of bipolar disorder, borderline personality disorder, PTSD. Continue home Seroquel, trazodone, duloxetine. Continue Lamictal at 100mg daily (unsure if patient has been taking). (10) Essential hypertension, benign: Impression: Continue amlodipine. (11) COPD (chronic obstructive pulmonary disease): Impression: Patient with 50+ pack-year smoking history. Still smoking a pack a day. On chronic oxygen, states she was up to 3 to 4 L of oxygen at home. No active wheezing noted. Continue DuoNebs as needed. Qualifiers: COPD type: unspecified COPD Qualified Code(s): J44.9 - Chronic obstructive pulmonary disease, unspecified
--- NOTE | 2025-08-23 08:08 | ADVANCE CARE PLANNING NOTE ---
Advance Care Planning Planning Encounter Date: 08/24/25 Diagnosis for Encounter (1) Wernicke encephalopathy: Summary: Patient presented with acute confusion. [place] social welfare administrator had called for a welfare check as patient had been on a cruz and then falling frequently at home. Alcohol level was greater than 400. Patient no longer in acute alcohol withdrawal. As needed Ativan has been discontinued. Remains with tremor, which patient states is chronic. She also presents with an ataxic gait, altered mentation, as well as some horizontal nystagmus noted on exam. Concern for Wernickes. Completed high-dose IV thiamine supplementation with IV thiamine 500 mg 3 times daily for 48 hours. Received 250mg today. Can transition to oral thiamine supplementation 08/25. Continue vitamin. Social work will be consulted for further counseling. Patient is interested in rehab and resources. PT evaluation ordered - reccomend SNF. Patient is unsure if she would like to pursue this but has signfiicant debility present on exam currently. Will reassess with clinical improvement.
[2025-08-23] MEDS: MAGNESIUM SULFATE 2 GRAM 2 GM/50 ML BAG IV ONE (08:15)
[2025-08-23] MEDS: PRENATAL VITAMIN TABLET PO SCH (09:01)
[2025-08-23] MEDS: SODIUM CHLORIDE FLUSH 0.9% 10 ML SYRINGE IVP PRN (09:01)
[2025-08-23] MEDS: ENOXAPARIN 40 MG/0.4 ML SYRINGE SUBQ SCH (09:01)
--- NOTE | 2025-08-23 16:16 | PT Plan of Care ---
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 (Updated 08/23/25 @ 07:21 by Roel Reid MD) Anxiety Alcoholism Bipolar II disorder (05/29/16) PTSD (post-traumatic stress disorder) Anxiety and depression Alopecia (04/28/17) Alcohol withdrawal Fall from ground level Compression fracture of L1 lumbar vertebra Colitis Rotator cuff tear Surgical History (Updated 07/13/24 @ 09:00 by Sarahy Landeros) H/O cervical spine surgery S/P hardware removal Status post open reduction and internal fixation (ORIF) of fracture Balance/ Functional Results Sitting Balance Poor Standing Balance Unable Assessment Assessment Pt is a 65yo F referred for PT eval d/t AMS, ataxia, and tremors. Admitted with acute metabolic encephalopathy and etoh withdrawal. Frequent falls at home with several areas of bruising and abrasions at various stages of healing. Pt was evaluated by this PT in Oct 2024 for similar. Cleared for eval by hospitalist. Pt is A&Ox1-2 (typically A&Ox3-4) with severe distractibility, limited ability to redirect and attend to tasks. On 3.5L O2 with sats 97% at rest and with activity. HR 102 at rest, one- teens with activity. Pt performs supine to sit EOB mod to maxAx1, requires maxAx1 to maintain sitting and unable to remain seated >1 minute d/ t confusion, distractibility and retropulsion. Overall presents with confusion, decreased strength, endurance, activity tolerance, and ADL status. Pt may benefit from skilled PT services in acute setting to improve safety and reduce fall risk. When medically clear, PT rec dc to SNF/LTC as she does not appear to be safe living indep at this time. Goals Improve bed mobility to: Minimal Assist Improve supine to sit to: Minimal Assist Improve sit to stand to: Minimal Assist Improve pivot transfer ability Minimal Assist to: Improve sit to supine to: Minimal Assist Improve gait ability to: Min A Assistive Device Used: Front Wheeled Walker Improve Sitting Balance to: Good Improve Standing Balance to: Fair PT Plan of Care Frequency 1-2x/day Duration Until discharge Discharge Recommendations Discharge Location [facility] Other tbd Transport Needs at Discharge [facility] Other BLS d/t poor trunk control, unable to stand
[2025-08-23] MEDS: ATORVASTATIN 10 MG TABLET PO SCH (21:18)
[2025-08-23] MEDS: FAMOTIDINE 20 MG TABLET PO SCH (21:19)
[2025-08-23] MEDS: LORazepam 2 MG/ML VIAL IVP STA (21:19)
[2025-08-23] MEDS: ACETAMINOPHEN 325 MG TABLET PO PRN (22:17)
[2025-08-24 06:46] LABS: HCT - HEMATOCRIT 32.9 % (37.0-47.0); HGB - HEMOGLOBIN 10.3 g/dL (12.0-16.0); MEAN PLATELET VOLUME 10.0 fL (7.9-10.8); PLT - PLATELET COUNT 142.0 10^3/uL (130-450); RED CELL DISTRIBUTION WIDTH 15.7 % (12.0-15.0)
[2025-08-24 06:52] LABS: BUN - BLOOD UREA NITROGEN 6.0 mg/dL (6-20); CARBON DIOXIDE - CO2 30.0 mmol/L (21-32); CREATININE 0.3 mg/dL (0.6-1.3); GFR - MDRD 224.0 (>89)
[2025-08-24] MEDS: SODIUM CHLORIDE 0.9% 500 ML IV ONE (08:14)
[2025-08-24] MEDS: MAGNESIUM OXIDE 400 MG TABLET PO SCH (08:20)
[2025-08-24] MEDS: POTASSIUM CHLORIDE 20 MEQ TABLET PO ONE (08:20)
--- NOTE | 2025-08-24 09:35 | ED Physician Documentation ---
ED Addendum Addendum Addendum: PT was signed out to me at change of shift, pending admission for presumed Wernicke's encephalopathy, as well as alcohol withdrawal, pneumonia, and hypoxia. She remained in the ED for a good portion of the day, due to delay in bed availability, and received doses of Ativan for withdrawal symptoms, but was otherwise stable. I was able to discuss her case with Dr. Reid, and pt was admitted to the hospital. Final Impression: 1. Pneumonia 2. Hypoxia 3. Wernicke's encephalopathy 4. Alcohol withdrawal Disposition: Admit to the hospital in serious but stable condition. Discharge Plan Discharge Patient Disposition: 67 [facility] DC/Xfer Condition: Serious Clinical Impression: Alcohol use disorder, severe, dependence, Frequent falls, Head injury, Pneumonia Interventions: ED Admission Assessment Last Done: 08/22/25 17:45 Vitals documented within 30 minutes of discharge?: Yes
--- NOTE | 2025-08-24 10:10 | PROVIDER PROGRESS NOTE ---
Subjective Subjective Subjective: This morning, patient continues to feel pretty tired. She states her shakes are improving. She denies any fevers or chills. Her shortness of breath is also improving. She is chronically on 3 to 4 L of oxygen at home. She is actively smoking. We talked about her physical therapy evaluation yesterday, and how the therapist had recommended SNF or LTAC. She does not want either of these options at this time. She would like to go home. She does state that she has a walker and cane at home. Current Medications Current Medications Current Medications: Current Medications Generic Name Dose Route Start Last Admin Trade Name Freq PRN Reason Stop Dose Admin Acetaminophen 650 mg 08/22/25 17:04 08/23/25 22:17 Acetaminophen 325 Mg Tablet PO 650 mg Q4HR PRN Administration Pain 1 to 4, or Fever Albuterol/Ipratropium 3 ml 08/22/25 19:00 Ipratropium/Albuterol 3 Ml Neb INH Q4HR PRN Wheezing Amlodipine Besylate 5 mg 08/23/25 09:00 08/24/25 10:00 Amlodipine 5 Mg Tablet PO 5 mg DAILY CALIXTO Administration Atorvastatin Calcium 10 mg 08/23/25 21:00 08/23/25 21:18 Atorvastatin 10 Mg Tablet PO 10 mg QPM CALIXTO Administration Duloxetine HCl 60 mg 08/21/25 21:00 08/23/25 21:18 Duloxetine 60 Mg Capsule PO 60 mg QPM CALIXTO Administration Enoxaparin Sodium 40 mg 08/23/25 09:00 08/24/25 09:59 Enoxaparin 40 Mg/0.4 Ml Syringe SUBQ 40 mg DAILY CALIXTO Administration Famotidine 20 mg 08/23/25 21:00 08/24/25 10:00 Famotidine 20 Mg Tablet PO 20 mg BID CALIXTO Administration Lamotrigine 100 mg 08/24/25 09:00 08/24/25 10:00 Lamotrigine 100 Mg Tablet PO 100 mg DAILY CALIXTO Administration Magnesium Oxide 400 mg 08/24/25 08:00 08/24/25 08:20 Magnesium Oxide 400 Mg Tablet PO 400 mg DAILYWM CALIXTO Administration Ondansetron HCl 4 mg 08/22/25 17:04 08/22/25 18:12 Ondansetron 4 Mg/2 Ml Vial IVP 4 mg Q6HR PRN Administration Nausea / Vomiting Multivit/Folic Acid/Iron 1 tab 08/23/25 09:00 08/24/25 10:00 Vitamin Tablet PO 1 tab DAILY CALIXTO Administration Prochlorperazine Edisylate 10 mg 08/22/25 17:04 Prochlorperazine 10 Mg/2 Ml Vial IVP Q6HR PRN Nausea / Vomiting Quetiapine Fumarate 50 mg 08/21/25 21:00 08/23/25 21:18 Quetiapine 25 Mg Tablet PO 50 mg QPM CALIXTO Administration Sodium Chloride 10 ml 08/22/25 17:04 08/23/25 09:01 Sodium Chloride Flush 0.9% 10 Ml Syringe IVP 10 ml PRN PRN Administration NEEDED PER PROVIDER ORDERS Sodium Chloride 10 ml 08/22/25 17:04 08/24/25 08:14 Sodium Chloride Flush 0.9% 10 Ml Syringe IVP 10 ml 0100,0900,1700 CALIXTO Administration Trazodone HCl 50 mg 08/23/25 21:00 08/23/25 21:20 Trazodone 50 Mg Tablet PO Not Given HS CALIXTO Objective Vital Signs/Intake & Output Vital Signs: Vital Signs x48h Temp Pulse Resp BP BP Pulse Ox O2 Flow Rate 08/24/25 10:03 87 123/72 08/24/25 08:26 98.6 F 95 22 138/81 H 92 4 08/24/25 05:00 97.7 F 84 19 108/65 92 Intake & Output: Intake & Output 08/21/25 08/22/25 08/23/25 08/24/25 23:59 23:59 23:59 23:59 Intake Total 1100 / 1100 570 / 570 620 / 620 Output Total 275 / 275 450 / 450 Balance 825 / 825 120 / 120 620 / 620 Weight (kg) 63.503 kg 64 kg Objective Comments/Other: Constitutional thin body habitus and alert Appears older than stated age. Tremulous. Alert and oriented. [facility] normocephalic and dentition abnormal other (dental caries, missing teeth noted) Bruising on left lower face, as well as left scalp. Small hematoma noted. Eyes PERRL, EOMs intact bilaterally, conjunctivae normal and nystagmus noted (horizontal) Neck/C-Spine visual inspection normal and cervical spine nontender Chest inspection of chest normal Respiratory breath sounds equal bilaterally, normal respiratory effort, clear to auscultation bilaterally, no wheezes, no rales and no retractions. some diminished breath sounds in bilateral lower lung bowen. Cardiovascular normal heart rate noted, regular rhythm noted, no gallop, no rub and no murmur Gastrointestinal abdomen normal to inspection, abdomen soft to palpation, nontender to palpation and normoactive bowel sounds Genitourinary no CVA tenderness and bladder normal to palpation Back/Pelvis spine normal to inspection, no thoracic spine tenderness and no lumbar spine tenderness Extremities normal to inspection, normal to palpation, no tenderness and full ROM Bilateral tremors noted in hands. At rest, and with intentional movement. Neurology no movement abnormality noted and no focal motor deficit noted Psychiatry mental status grossly normal, oriented x3, thought process normal, cooperative and affect normal Skin skin color normal, no rash, no lesions and no wounds Lab Results 08/24/25 05:55 08/24/25 05:55 Other Labs: Lab Results x24hrs 08/24/25 Range/Units 05:55 WBC 4.7 L (4.8-10.8) x10^3/uL RBC 3.87 L (4.20-5.40) 10^6/uL Hgb 10.3 L (12.0-16.0) g/dL Hct 32.9 L (37.0-47.0) % MCV 85.0 (81.0-99.0) fL MCH 26.6 L (27.0-31.0) pg MCHC 31.3 L (32.0-36.0) g/dL RDW 15.7 H (12.0-15.0) % Plt Count 142 (130-450) 10^3/uL MPV 10.0 (7.9-10.8) fL Sodium 125 L (135-145) mmol/L Potassium 3.0 L (3.5-4.5) mmol/L Chloride 88 L (101-111) mmol/L Carbon Dioxide 30 (21-32) mmol/L Anion Gap 7.0 (6-13) BUN 6 (6-20) mg/dL Creatinine 0.3 L (0.6-1.3) mg/dL Estimated GFR (MDRD) 224 (>89) Glucose 85 (74-104) mg/dL Calcium 8.1 L (8.5-10.3) mg/dL Magnesium 1.8 (1.7-2.3) mg/dL Assessment/Plan Problem List (1) Acute metabolic encephalopathy: (2) Wernicke encephalopathy: (3) Acute hyperactive alcohol withdrawal delirium: Impression: The following plan is for the above two assessments: Patient presented with acute confusion. [place] social media manager had called for a welfare check as patient had been on a cruz and then falling frequently at home. Alcohol level was greater than 400. Patient no longer in acute alcohol withdrawal. As needed Ativan has been discontinued. Remains with tremor, which patient states is chronic. She also presents with an ataxic gait, altered mentation, as well as some horizontal nystagmus noted on exam. Concern for Wernickes. Completed high-dose IV thiamine supplementation with IV thiamine 500 mg 3 times daily for 48 hours. Received 250mg today. Can transition to oral thiamine supplementation 08/25. Continue vitamin. Social work will be consulted for further counseling. Patient is interested in rehab and resources. PT evaluation ordered - reccomend SNF. Patient is unsure if she would like to pursue this but has signfiicant debility present on exam currently. Will reassess with clinical improvement. (4) Hyponatremia: Impression: Continue gentle IV fluid rehydration. Yesterday, fluids were stopped, and sodium dropped from 130-128-125. Restarted today. (5) High anion gap metabolic acidosis: Impression: Resolved. Due to alcoholic ketosis. Continue to trend. Continue IVF. (6) Hypokalemia: (7) Elevated CPK: Impression: Normal kidney function, patient is urinating appropriately. Continue IVF. (8) Essential hypertension, benign: Impression: Continue amlodipine. (9) COPD (chronic obstructive pulmonary disease): Impression: Patient with 50+ pack-year smoking history. Still smoking a pack a day. On chronic oxygen, states she was up to 3 to 4 L of oxygen at home. No active wheezing noted. Continue DuoNebs as needed. Qualifiers: COPD type: unspecified COPD Qualified Code(s): J44.9 - Chronic obstructive pulmonary disease, unspecified (10) Anxiety and depression: (11) Alcoholism: (12) Bipolar II disorder: Impression: The following plan is for the above 3 diagnoses: Last behavioral health note reviewed from 07/28. Patient carries a diagnosis of bipolar disorder, borderline personality disorder, PTSD. Continue home Seroquel, trazodone, duloxetine. Continue Lamictal at 100mg daily (unsure if patient has been taking and was started at lower dose; was supposed to be titrated up to 200mg in outpatient).
[2025-08-24] MEDS: CYANOCOBALAMIN 500 MCG TABLET PO SCH (11:46)
[2025-08-24] MEDS: THIAMINE 100 MG/1 ML 2 ML MDV IVP ONE (11:54)
[2025-08-24 12:09] LABS: BUN - BLOOD UREA NITROGEN 6.0 mg/dL (6-20); CARBON DIOXIDE - CO2 28.0 mmol/L (21-32); CREATININE 0.2 mg/dL (0.6-1.3); GFR - MDRD 358.0 (>89)
[2025-08-24] MEDS: SODIUM CHLORIDE 1 GM TABLET PO SCH (12:44)
[2025-08-24] MEDS: NICOTINE 21 MG PATCH TOP SCH (17:11)
[2025-08-25 05:58] LABS: HCT - HEMATOCRIT 33.6 % (37.0-47.0); HGB - HEMOGLOBIN 10.3 g/dL (12.0-16.0); MEAN PLATELET VOLUME 9.6 fL (7.9-10.8); PLT - PLATELET COUNT 144.0 10^3/uL (130-450); RED CELL DISTRIBUTION WIDTH 16.1 % (12.0-15.0)
[2025-08-25 06:10] LABS: BUN - BLOOD UREA NITROGEN 6.0 mg/dL (6-20); CARBON DIOXIDE - CO2 29.0 mmol/L (21-32); CREATININE 0.3 mg/dL (0.6-1.3); GFR - MDRD 224.0 (>89)
--- NOTE | 2025-08-25 11:33 | PROVIDER PROGRESS NOTE ---
Subjective Prog Note Date Prog Note Date: 08/25/25 Prog Note Time: 11:31 Subjective Pt reports feeling: Improved Subjective: She is alert and oriented to person, place, not necessarily time. She reluctantly states why she is here when I ask her if she understands what the problem is. She states that she is here because she fell. I explained to her that she fell because she is suffering the effects of alcohol binging and beer [place]. She shrugged her shoulders and agreed that that was a likely scenario. Sodium is 127 today. I explained that she is now medically stable for discharge and she says that she would like to go home. I asked her to please get up and go to the bathroom for me, mobilize in the room, and show me that she is stable to go home and she was unable to do so. She then stated that you cannot make me stay here against my will and I said I cannot. But I do need her to be able to get up and get out of here. She and social work are going to be working through the process. Current Medications Current Medications Current Medications: Current Medications Generic Name Dose Route Start Last Admin Trade Name Freq PRN Reason Stop Dose Admin Acetaminophen 650 mg 08/22/25 17:04 08/24/25 12:44 Acetaminophen 325 Mg Tablet PO 650 mg Q4HR PRN Administration Pain 1 to 4, or Fever Albuterol/Ipratropium 3 ml 08/22/25 19:00 Ipratropium/Albuterol 3 Ml Neb INH Q4HR PRN Wheezing Amlodipine Besylate 5 mg 08/23/25 09:00 08/25/25 08:36 Amlodipine 5 Mg Tablet PO 5 mg DAILY CALIXTO Administration Atorvastatin Calcium 10 mg 08/23/25 21:00 08/24/25 20:26 Atorvastatin 10 Mg Tablet PO 10 mg QPM CALIXTO Administration Cyanocobalamin 500 mcg 08/24/25 11:00 08/25/25 08:36 Cyanocobalamin 500 Mcg Tablet PO 500 mcg DAILY CALIXTO Administration Duloxetine HCl 60 mg 08/21/25 21:00 08/24/25 20:26 Duloxetine 60 Mg Capsule PO 60 mg QPM CALIXTO Administration Enoxaparin Sodium 40 mg 08/23/25 09:00 08/25/25 08:36 Enoxaparin 40 Mg/0.4 Ml Syringe SUBQ 40 mg DAILY CALIXTO Administration Famotidine 20 mg 08/23/25 21:00 08/25/25 08:35 Famotidine 20 Mg Tablet PO 20 mg BID CALIXTO Administration Lamotrigine 100 mg 08/24/25 09:00 08/25/25 08:36 Lamotrigine 100 Mg Tablet PO 100 mg DAILY CALIXTO Administration Magnesium Oxide 400 mg 08/24/25 08:00 08/25/25 08:35 Magnesium Oxide 400 Mg Tablet PO 400 mg DAILYWM CALIXTO Administration Nicotine 1 patch 08/24/25 16:00 08/25/25 08:34 Nicotine 21 Mg Patch TOP 1 patch DAILY CALIXTO Administration Ondansetron HCl 4 mg 08/22/25 17:04 08/24/25 20:26 Ondansetron 4 Mg/2 Ml Vial IVP 4 mg Q6HR PRN Administration Nausea / Vomiting Multivit/Folic Acid/Iron 1 tab 08/23/25 09:00 08/25/25 08:36 Vitamin Tablet PO 1 tab DAILY CALIXTO Administration Prochlorperazine Edisylate 10 mg 08/22/25 17:04 Prochlorperazine 10 Mg/2 Ml Vial IVP Q6HR PRN Nausea / Vomiting Quetiapine Fumarate 50 mg 08/21/25 21:00 08/24/25 20:26 Quetiapine 25 Mg Tablet PO 50 mg QPM CALIXTO Administration Sodium Chloride 10 ml 08/22/25 17:04 08/23/25 09:01 Sodium Chloride Flush 0.9% 10 Ml Syringe IVP 10 ml PRN PRN Administration NEEDED PER PROVIDER ORDERS Sodium Chloride 10 ml 08/22/25 17:04 08/25/25 08:35 Sodium Chloride Flush 0.9% 10 Ml Syringe IVP 10 ml 0100,0900,1700 CALIXTO Administration Sodium Chloride 1 gm 08/24/25 12:35 08/25/25 08:36 Sodium Chloride 1 Gm Tablet PO 1 gm BID CALIXTO Administration Trazodone HCl 50 mg 08/23/25 21:00 08/24/25 20:26 Trazodone 50 Mg Tablet PO 50 mg HS CALIXTO Administration Objective Vital Signs/Intake & Output Reviewed Vital Signs: Yes Vital Signs: Vital Signs x48h Temp Pulse Resp BP Pulse Ox O2 Flow Rate 08/25/25 09:00 3 08/25/25 09:00 37.0 C 92 22 156/80 H 93 4 08/25/25 05:30 36.6 C 81 16 138/77 H 96 4 Intake & Output: Intake & Output 08/22/25 08/23/25 08/24/25 08/25/25 23:59 23:59 23:59 23:59 Intake Total 1100 / 1100 570 / 570 860 / 860 120 / 120 Output Total 275 / 275 450 / 450 600 / 600 Balance 825 / 825 120 / 120 860 / 860 -480 / -480 Weight (kg) 64 kg Objective General Appearance: positive No acute distress, Alert and Mild distress (From being upset) Eyes Bilateral: positive PERRL and EOMI ENT: positive No signs of dehydration Neck: positive Nml inspection, Thyroid nml and No JVD Respiratory: positive Chest non-tender, No respiratory distress and Breath sounds nml (Overall quiet breath sounds in a patient with COPD on home based oxygen. She usually takes 3 to 4 L. Currently on 3 L and 93%.) Cardiovascular: positive Regular rate & rhythm and Systolic murmur; negative Tachycardia Abdomen: positive Non-tender, No organomegaly and Nml bowel sounds Skin: positive Color nml, Dry and Pallor Extremities: positive Non-tender, Full ROM and Nml appearance Neurologic/Psychiatric: positive Oriented x3, CN's nml (2-12) and Disoriented to time; negative Motor nml (She is not able to demonstrate that she can sit up from supine for me. She cannot do it on her own. So I am not even having her try and stand. There are no tremors. She is not tremulous.) or Slurred/abnml speech Lab Results 08/25/25 05:44 08/25/25 05:44 Other Labs: Lab Results x24hrs 08/25/25 08/24/25 Range/Units 05:44 11:45 WBC 4.4 L (4.8-10.8) x10^3/uL RBC 3.92 L (4.20-5.40) 10^6/uL Hgb 10.3 L (12.0-16.0) g/dL Hct 33.6 L (37.0-47.0) % MCV 85.7 (81.0-99.0) fL MCH 26.3 L (27.0-31.0) pg MCHC 30.7 L (32.0-36.0) g/dL RDW 16.1 H (12.0-15.0) % Plt Count 144 (130-450) 10^3/uL MPV 9.6 (7.9-10.8) fL Sodium 127 L 124 L (135-145) mmol/L Potassium 3.6 3.7 (3.5-4.5) mmol/L Chloride 92 L 88 L (101-111) mmol/L Carbon Dioxide 29 28 (21-32) mmol/L Anion Gap 6.0 8.0 (6-13) BUN 6 6 (6-20) mg/dL Creatinine 0.3 L 0.2 L (0.6-1.3) mg/dL Estimated GFR (MDRD) 224 358 (>89) Glucose 91 125 H (74-104) mg/dL Calcium 8.3 L 8.3 L (8.5-10.3) mg/dL Magnesium 1.8 (1.7-2.3) mg/dL ABX Reporting Has patient been on IV antibiotics over the past 48 hours?: No Assessment/Plan Problem List (1) Acute hyperactive alcohol withdrawal delirium: Impression: The following plan is for the two assessments below (#2 and #3): Patient presented with acute confusion. [place] social had called for a welfare check as patient had been on a cruz and then falling frequently at home. Alcohol level was greater than 400. Treatment was IV Ativan, IV B12 and thiamine to be followed by oral thiamine and B vitamins today .Today is Day #4 of hospitalization. Since 08/24, patient no longer in acute alcohol withdrawal. As needed Ativan has been discontinued. Remains with tremor, which patient states is chronic. But no tremor today on my exam. She also presents with an ataxic gait, altered mentation, as well as some horizontal nystagmus noted on exam. Concern for Wernickes. Completed high-dose IV thiamine supplementation with IV thiamine 500 mg 3 times daily for 48 hours. Received 250mg today. Can transition to oral thiamine supplementation 08/25 (today). Continue vitamin. Social work has been consulted for further counseling and she's been seen several times today. Patient was interested in rehab and resources yesterday. But today she has changed her mind. But she is not demonstrating that she has a safe discharge to home. She is frustrated and would like to leave. We are not stopping her. But she needs to make her own arrangements and she is not able to do so. She is not able to demonstrate she can get out of bed. She is working closely with social work about what the solution will be at discharge. Today will be an avoidable day. PT evaluation done and they reccomend SNF. I am recommending SNF for rehab as well. She will let us know. (2) Wernicke encephalopathy: Impression: resolved (3) Acute metabolic encephalopathy: Impression: resolved (4) Hyponatremia: Impression: Continue gentle IV fluid rehydration. 08/23, fluids were stopped, and sodium dropped from 130-128-125. Restarted 08/24and today Na is 127. (5) High anion gap metabolic acidosis: Impression: Resolved. Due to alcoholic ketosis. Continue to trend. Continue IVF until discharge. (6) Hypokalemia: Impression: present 08/24 and supplemented with oral K. Today she is 3.6 (7) Elevated CPK: Impression: Normal kidney function, patient is urinating appropriately. Continue IVF. (8) Essential hypertension, benign: Impression: This morning's blood pressure is 156/80 Continue amlodipine. (9) COPD (chronic obstructive pulmonary disease): Impression: Patient with 50+ pack-year smoking history. Still smoking a pack a day. On chronic oxygen, states she was up to 3 to 4 L of oxygen at home.She is currently at her baseline status. No active wheezing noted. Continue DuoNebs as needed. Qualifiers: COPD type: unspecified COPD Qualified Code(s): J44.9 - Chronic obstructive pulmonary disease, unspecified (10) Bipolar II disorder: Impression: The following plan is for the above 3 diagnoses: Last behavioral health note reviewed from 07/28. Patient carries a diagnosis of bipolar disorder, borderline personality disorder, PTSD. Continue home Seroquel, trazodone, duloxetine. Continue Lamictal at 100mg daily (unsure if patient has been taking and was started at lower dose; was supposed to be titrated up to 200mg in outpatient).
[2025-08-25] MEDS: IBUPROFEN 600 MG TABLET PO PRN (16:44)
[2025-08-26 08:17] LABS: HCT - HEMATOCRIT 33.6 % (37.0-47.0); HGB - HEMOGLOBIN 10.5 g/dL (12.0-16.0); MEAN PLATELET VOLUME 8.8 fL (7.9-10.8); NRBC ABSOLUTE COUNT (AUTO) 0.00 x10^3/uL; NUCLEATED RED BLOOD CELLS AUTO 0.0 /100WBC; PLT - PLATELET COUNT 174 10^3/uL (130-450); RED CELL DISTRIBUTION WIDTH 16.6 % (12.0-15.0)
[2025-08-26 08:34] LABS: BUN - BLOOD UREA NITROGEN 5.0 mg/dL (6-20); CARBON DIOXIDE - CO2 30.0 mmol/L (21-32); CREATININE 0.3 mg/dL (0.6-1.3); GFR - MDRD 224.0 (>89)
--- NOTE | 2025-08-26 14:51 | PROVIDER PROGRESS NOTE ---
Subjective Prog Note Date Prog Note Date: 08/26/25 Prog Note Time: 14:39 Subjective Pt reports feeling: No change Subjective: No interval history up today. No new events. She has been off benzodiazepines since yesterday. She is going to be working with physical therapy today and PT wonders if we would like to rest the issue of the toe pain. Whether she is had a toe fracture or not. She denies shortness of breath, cough, abdominal pain, calf pain. Current Medications Current Medications Current Medications: Current Medications Generic Name Dose Route Start Last Admin Trade Name Freq PRN Reason Stop Dose Admin Acetaminophen 650 mg 08/22/25 17:04 08/24/25 12:44 Acetaminophen 325 Mg Tablet PO 650 mg Q4HR PRN Administration Pain 1 to 4, or Fever Albuterol/Ipratropium 3 ml 08/22/25 19:00 Ipratropium/Albuterol 3 Ml Neb INH Q4HR PRN Wheezing Amlodipine Besylate 5 mg 08/23/25 09:00 08/26/25 09:05 Amlodipine 5 Mg Tablet PO 5 mg DAILY CALIXTO Administration Atorvastatin Calcium 10 mg 08/23/25 21:00 08/25/25 20:48 Atorvastatin 10 Mg Tablet PO 10 mg QPM CALIXTO Administration Cyanocobalamin 500 mcg 08/24/25 11:00 08/26/25 09:05 Cyanocobalamin 500 Mcg Tablet PO 500 mcg DAILY CALIXTO Administration Duloxetine HCl 60 mg 08/21/25 21:00 08/25/25 20:48 Duloxetine 60 Mg Capsule PO 60 mg QPM CALIXTO Administration Enoxaparin Sodium 40 mg 08/23/25 09:00 08/26/25 09:44 Enoxaparin 40 Mg/0.4 Ml Syringe SUBQ 40 mg DAILY CALIXTO Administration Famotidine 20 mg 08/23/25 21:00 08/26/25 09:05 Famotidine 20 Mg Tablet PO 20 mg BID CALIXTO Administration Ibuprofen 600 mg 08/25/25 16:04 08/25/25 16:44 Ibuprofen 600 Mg Tablet PO 600 mg Q6HR PRN Administration headache Lamotrigine 100 mg 08/24/25 09:00 08/26/25 09:05 Lamotrigine 100 Mg Tablet PO 100 mg DAILY CALIXTO Administration Magnesium Oxide 400 mg 08/24/25 08:00 08/26/25 09:05 Magnesium Oxide 400 Mg Tablet PO 400 mg DAILYWM CALIXTO Administration Nicotine 1 patch 08/24/25 16:00 08/26/25 09:43 Nicotine 21 Mg Patch TOP Not Given DAILY CALIXTO Ondansetron HCl 4 mg 08/22/25 17:04 08/24/25 20:26 Ondansetron 4 Mg/2 Ml Vial IVP 4 mg Q6HR PRN Administration Nausea / Vomiting Multivit/Folic Acid/Iron 1 tab 08/23/25 09:00 08/26/25 09:05 Vitamin Tablet PO 1 tab DAILY CALIXTO Administration Prochlorperazine Edisylate 10 mg 08/22/25 17:04 Prochlorperazine 10 Mg/2 Ml Vial IVP Q6HR PRN Nausea / Vomiting Quetiapine Fumarate 50 mg 08/21/25 21:00 08/25/25 20:48 Quetiapine 25 Mg Tablet PO 50 mg QPM CALIXTO Administration Sodium Chloride 10 ml 08/22/25 17:04 08/23/25 09:01 Sodium Chloride Flush 0.9% 10 Ml Syringe IVP 10 ml PRN PRN Administration NEEDED PER PROVIDER ORDERS Sodium Chloride 10 ml 08/22/25 17:04 08/26/25 09:05 Sodium Chloride Flush 0.9% 10 Ml Syringe IVP 10 ml 0100,0900,1700 CALIXTO Administration Sodium Chloride 1 gm 08/24/25 12:35 08/26/25 09:05 Sodium Chloride 1 Gm Tablet PO 1 gm BID CALIXTO Administration Thiamine HCl 100 mg 08/27/25 11:00 Thiamine 100 Mg Tablet PO DAILY CALIXTO Trazodone HCl 50 mg 08/23/25 21:00 08/25/25 20:48 Trazodone 50 Mg Tablet PO 50 mg HS CALIXTO Administration Objective Vital Signs/Intake & Output Reviewed Vital Signs: Yes Vital Signs: Vital Signs x48h Temp Pulse Resp BP Pulse Ox O2 Flow Rate 08/26/25 12:45 36.7 C 82 16 127/68 94 2 08/26/25 11:06 2 08/26/25 09:00 36.7 C 77 16 124/58 L 97 2 Intake & Output: Intake & Output 08/23/25 08/24/25 08/25/25 08/26/25 23:59 23:59 23:59 23:59 Intake Total 570 / 570 860 / 860 800 / 800 240 / 240 Output Total 450 / 450 750 / 750 650 / 650 Balance 120 / 120 860 / 860 50 / 50 -410 / -410 Objective General Appearance: positive No acute distress and Alert (Watching TV this morning. Woke easily to my voice. Oriented to person, place, time and situation but is forgetful. I had to remind her that I met her yesterday.) Eyes Bilateral: positive PERRL and EOMI ENT: positive Pharynx nml, No signs of dehydration and Other (Missing teeth. No dentures) Neck: positive No JVD; negative Stiff neck Respiratory: positive No respiratory distress, Breath sounds nml and Other (Every once while she says that she is bringing up some phlegm but it is clear.); negative Wheezes, Rales or Rhonchi Cardiovascular: positive Regular rate & rhythm, No murmur and No gallop Abdomen: positive Non-tender, No organomegaly and Nml bowel sounds Skin: positive Embolic lesions (Nursing reports pink intertriginous folds) and Other (Bruises on her arms. Left side of her face. Anterior shins.) Extremities: positive Full ROM and Other (Left great toe does hurt. Slightly deformed but I cannot tell if some arthritis but no redness or heat) Neurologic/Psychiatric: positive Oriented x3 (But forgetful. She forgot who I was from yesterday to today. Later this afternoon I saw her again and she still did not remember me.); negative Motor nml (No focal deficits. Yesterday there was no tremulousness. But when I try and get her up, she shakes with the exertion. Generalized weakness and needs a 1 person assist as well as a gait belt. Barely able to feed herself. Needs help with brushing her teeth and cannot brush her hair because her ar) Lab Results 08/26/25 08:08 08/26/25 08:08 Other Labs: Lab Results x24hrs 08/26/25 Range/Units 08:08 WBC 4.2 L (4.8-10.8) x10^3/uL RBC 3.89 L (4.20-5.40) 10^6/uL Hgb 10.5 L (12.0-16.0) g/dL Hct 33.6 L (37.0-47.0) % MCV 86.4 (81.0-99.0) fL MCH 27.0 (27.0-31.0) pg MCHC 31.3 L (32.0-36.0) g/dL RDW 16.6 H (12.0-15.0) % Plt Count 174 (130-450) 10^3/uL MPV 8.8 (7.9-10.8) fL Neut # (Auto) 2.2 (1.5-6.6) 10^3/uL Lymph # (Auto) 1.2 L (1.5-3.5) 10^3/uL [place] # (Auto) 0.5 (0.0-1.0) 10^3/uL Eos # (Auto) 0.2 (0.0-0.7) 10^3/uL Baso # (Auto) 0.0 (0.0-0.1) 10^3/uL Absolute Nucleated RBC 0.00 x10^3/uL Nucleated RBC % 0.0 /100WBC Sodium 127 L (135-145) mmol/L Potassium 3.5 (3.5-4.5) mmol/L Chloride 93 L (101-111) mmol/L Carbon Dioxide 30 (21-32) mmol/L Anion Gap 4.0 L (6-13) BUN 5 L (6-20) mg/dL Creatinine 0.3 L (0.6-1.3) mg/dL Estimated GFR (MDRD) 224 (>89) Glucose 100 (74-104) mg/dL Calcium 8.4 L (8.5-10.3) mg/dL Assessment/Plan Problem List (1) Acute hyperactive alcohol withdrawal delirium: Impression: The following plan is for the two assessments below (#2 and #3): Patient presented with acute confusion. [place] oncology social worker had called for a welfare check as patient had been on a cruz and then falling frequently at home. Alcohol level was greater than 400. Treatment was IV Ativan, IV B12 and thiamine to be followed by oral thiamine and B vitamins today .Today is Day #5 of hospitalization. Since 08/24, patient no longer in acute alcohol withdrawal. As needed Ativan has been discontinued. Remains with tremor, which patient states is chronic. But no tremor today on my exam. I am taking the CIWA protocol off of the DEC. She also presents with an ataxic gait, altered mentation, as well as some horizontal nystagmus noted on exam. Concern for Wernickes. Completed high-dose IV thiamine supplementation with IV thiamine 500 mg 3 times daily for 48 hours. Received 250mg 08/25. Can transition to oral thiamine supplementation 08/25 and I failed to do so. I discussed it with pharmacy and we will change her to p.o. thiamine today. Continue vitamin. Social work has been consulted for further counseling and she's been seen several times today. Patient was interested in rehab and resources 08/24. But 08/25, she had changed her mind. But she is not demonstrating that she has a safe discharge to home. She is frustrated and would like to leave. We are not stopping her. But she needs to make her own arrangements and she is not able to do so. She continues to not be able to demonstrate she can get out of bed. PT evaluation done and they recomend SNF. I am recommending SNF for rehab as well. Today she agrees to a fdc facility. Seen by physical therapy again today. Plan would be discharge for tomorrow if the facility accepts her. Yesterday and today or avoidable days. (2) Wernicke encephalopathy: Impression: resolved (3) Acute metabolic encephalopathy: Impression: resolved. She is oriented to person, place, time and situation yesterday and today. However she does have moments where she "blanks out" and does not remember anything I just said or what I said yesterday. I did attempt to call emergency contact numbers just to verify who her support system was and what our plans were, but that for [facility] is disconnected. (4) Toe pain: Impression: Check plain films to verify if she broke her toe Qualifiers: Laterality: left Qualified Code(s): M79.675 - Pain in left toe(s) (5) Hyponatremia: Impression: She was on gentle IV fluid rehydration. 08/23, fluids were stopped, and sodium dropped from 130-128-125. Restarted 08/24 with Na going to 127 08/25. She continues to be 127 today. (6) High anion gap metabolic acidosis: Impression: Resolved. Due to alcoholic ketosis. Continue to trend. (7) Hypokalemia: Impression: present 08/24 and supplemented with oral K. She was 3.6 yesterday, and 3.5 today. (8) Elevated CPK: Impression: Normal kidney function, patient is urinating appropriately. Continue IVF. (9) Essential hypertension, benign: Impression: This Afternoon blood pressures 127/68. Continue amlodipine. (10) COPD (chronic obstructive pulmonary disease): Impression: Patient with 50+ pack-year smoking history. Still smoking a pack a day. On chronic oxygen, states she was up to 3 to 4 L of oxygen at home.She is currently at her baseline status. Down to 2 L nasal cannula today and saturating at 94%. No active wheezing noted. Continue DuoNebs as needed. Qualifiers: COPD type: unspecified COPD Qualified Code(s): J44.9 - Chronic obstructive pulmonary disease, unspecified (11) Bipolar II disorder: Impression: The following plan is for the above 3 diagnoses: Last behavioral health note reviewed from 07/28. Patient carries a diagnosis of bipolar disorder, borderline personality disorder, PTSD. Continue home Seroquel, trazodone, duloxetine. Continue Lamictal at 100mg daily (unsure if patient has been taking and was started at lower dose; was supposed to be titrated up to 200mg in outpatient).
--- NOTE | 2025-08-26 15:36 | ADVANCE CARE PLANNING NOTE ---
Advance Care Planning Planning Encounter Date: 08/26/25 Time: 15:34 Purpose: Establish CODE STATUS and care goals Parties in Attendance: Patient's daughter and designated DPOA, hospitalist, and patient Decisional Capacity of the Patient: Patient is oriented to self, her daughter, but does not remember me despite meeting me several times in the last 2 days. Psychomotor slowing. States after 20 minutes that she does not want to discuss anymore with me but willing to let daughter discussed with me Diagnosis for Encounter (1) Acute hyperactive alcohol withdrawal delirium: (2) Wernicke encephalopathy: (3) Acute metabolic encephalopathy: (4) Toe pain: Qualifiers: Laterality: left Qualified Code(s): M79.675 - Pain in left toe(s) (5) Hyponatremia: (6) High anion gap metabolic acidosis: (7) Hypokalemia: (8) Elevated CPK: (9) Essential hypertension, benign: (10) COPD (chronic obstructive pulmonary disease): Qualifiers: COPD type: unspecified COPD Qualified Code(s): J44.9 - Chronic obstructive pulmonary disease, unspecified (11) Bipolar II disorder:
--- NOTE | 2025-08-26 16:33 | XRAY Report ---
PROCEDURE: XR Toe(s) 2+V LT INDICATIONS: toe pain after trauma TECHNIQUE: 3 views of the toe(s) were obtained. COMPARISON: None FINDINGS: Bones: No fractures or dislocations. No suspicious bony lesions. Soft tissues: No suspicious soft tissue densities. Ankle instrumentation partially imaged IMPRESSION: No toe fracture Reviewed by: Spenser Giron MD on 08/26/2025 3:30 PM [place] Approved by: Spenser Giron MD on 08/26/2025 3:30 PM [place] Station ID: [id number]
--- NOTE | 2025-08-27 07:24 | PROVIDER PROGRESS NOTE ---
Subjective Prog Note Date Prog Note Date: 08/27/25 Prog Note Time: 07:23 Subjective Subjective: No acute events overnight. Is becoming progressively more hypertensive. Holding off on further salt tabs. Current Medications Current Medications Current Medications: Current Medications Generic Name Dose Route Start Last Admin Trade Name Freq PRN Reason Stop Dose Admin Acetaminophen 650 mg 08/22/25 17:04 08/24/25 12:44 Acetaminophen 325 Mg Tablet PO 650 mg Q4HR PRN Administration Pain 1 to 4, or Fever Albuterol/Ipratropium 3 ml 08/22/25 19:00 Ipratropium/Albuterol 3 Ml Neb INH Q4HR PRN Wheezing Amlodipine Besylate 5 mg 08/23/25 09:00 08/26/25 09:05 Amlodipine 5 Mg Tablet PO 5 mg DAILY CALIXTO Administration Atorvastatin Calcium 10 mg 08/23/25 21:00 08/26/25 20:16 Atorvastatin 10 Mg Tablet PO 10 mg QPM CALIXTO Administration Cyanocobalamin 500 mcg 08/24/25 11:00 08/26/25 09:05 Cyanocobalamin 500 Mcg Tablet PO 500 mcg DAILY CALIXTO Administration Duloxetine HCl 60 mg 08/21/25 21:00 08/26/25 20:16 Duloxetine 60 Mg Capsule PO 60 mg QPM CALIXTO Administration Enoxaparin Sodium 40 mg 08/23/25 09:00 08/26/25 09:44 Enoxaparin 40 Mg/0.4 Ml Syringe SUBQ 40 mg DAILY CALIXTO Administration Famotidine 20 mg 08/23/25 21:00 08/26/25 20:16 Famotidine 20 Mg Tablet PO 20 mg BID CALIXTO Administration Ibuprofen 600 mg 08/25/25 16:04 08/25/25 16:44 Ibuprofen 600 Mg Tablet PO 600 mg Q6HR PRN Administration headache Lamotrigine 100 mg 08/24/25 09:00 08/26/25 09:05 Lamotrigine 100 Mg Tablet PO 100 mg DAILY CALIXTO Administration Magnesium Oxide 400 mg 08/24/25 08:00 08/26/25 09:05 Magnesium Oxide 400 Mg Tablet PO 400 mg DAILYWM CALIXTO Administration Nicotine 1 patch 08/24/25 16:00 08/26/25 09:43 Nicotine 21 Mg Patch TOP Not Given DAILY CALIXTO Ondansetron HCl 4 mg 08/22/25 17:04 08/27/25 06:26 Ondansetron 4 Mg/2 Ml Vial IVP 4 mg Q6HR PRN Administration Nausea / Vomiting Multivit/Folic Acid/Iron 1 tab 08/23/25 09:00 08/26/25 09:05 Vitamin Tablet PO 1 tab DAILY CALIXTO Administration Prochlorperazine Edisylate 10 mg 08/22/25 17:04 Prochlorperazine 10 Mg/2 Ml Vial IVP Q6HR PRN Nausea / Vomiting Quetiapine Fumarate 50 mg 08/21/25 21:00 08/26/25 20:16 Quetiapine 25 Mg Tablet PO 50 mg QPM CAL[place] Administration Sodium Chloride 10 ml 08/22/25 17:04 08/23/25 09:01 Sodium Chloride Flush 0.9% 10 Ml Syringe IVP 10 ml PRN PRN Administration NEEDED PER PROVIDER ORDERS Sodium Chloride 10 ml 08/22/25 17:04 08/26/25 23:39 Sodium Chloride Flush 0.9% 10 Ml Syringe IVP 10 ml 0100,0900,1700 CALIXTO Administration Sodium Chloride 1 gm 08/24/25 12:35 08/26/25 20:16 Sodium Chloride 1 Gm Tablet PO 1 gm BID CALIXTO Administration Thiamine HCl 100 mg 08/27/25 11:00 Thiamine 100 Mg Tablet PO DAILY CALIXTO Trazodone HCl 50 mg 08/23/25 21:00 08/26/25 20:16 Trazodone 50 Mg Tablet PO 50 mg HS CALIXTO Administration Objective Vital Signs/Intake & Output Vital Signs: Vital Signs x48h Temp Pulse Resp BP Pulse Ox O2 Flow Rate 08/26/25 23:45 37 C 87 12 157/78 H 95 1 Intake & Output: Intake & Output 08/24/25 08/25/25 08/26/25 08/27/25 23:59 23:59 23:59 23:59 Intake Total 860 / 860 800 / 800 780 / 780 Output Total 750 / 750 1350 / 1350 1000 / 1000 Balance 860 / 860 50 / 50 -570 / -570 -1000 / -1000 Lab Results 08/26/25 08:08 08/26/25 08:08 Other Labs: Lab Results x24hrs 08/26/25 Range/Units 08:08 WBC 4.2 L (4.8-10.8) x10^3/uL RBC 3.89 L (4.20-5.40) 10^6/uL Hgb 10.5 L (12.0-16.0) g/dL Hct 33.6 L (37.0-47.0) % MCV 86.4 (81.0-99.0) fL MCH 27.0 (27.0-31.0) pg MCHC 31.3 L (32.0-36.0) g/dL RDW 16.6 H (12.0-15.0) % Plt Count 174 (130-450) 10^3/uL MPV 8.8 (7.9-10.8) fL Neut # (Auto) 2.2 (1.5-6.6) 10^3/uL Lymph # (Auto) 1.2 L (1.5-3.5) 10^3/uL [place] # (Auto) 0.5 (0.0-1.0) 10^3/uL Eos # (Auto) 0.2 (0.0-0.7) 10^3/uL Baso # (Auto) 0.0 (0.0-0.1) 10^3/uL Absolute Nucleated RBC 0.00 x10^3/uL Nucleated RBC % 0.0 /100WBC Sodium 127 L (135-145) mmol/L Potassium 3.5 (3.5-4.5) mmol/L Chloride 93 L (101-111) mmol/L Carbon Dioxide 30 (21-32) mmol/L Anion Gap 4.0 L (6-13) BUN 5 L (6-20) mg/dL Creatinine 0.3 L (0.6-1.3) mg/dL Estimated GFR (MDRD) 224 (>89) Glucose 100 (74-104) mg/dL Calcium 8.4 L (8.5-10.3) mg/dL Assessment/Plan Problem List (1) Acute hyperactive alcohol withdrawal delirium: (2) Wernicke encephalopathy: (3) Acute metabolic encephalopathy: (4) Toe pain: Qualifiers: Laterality: left Qualified Code(s): M79.675 - Pain in left toe(s) (5) Hyponatremia: (6) High anion gap metabolic acidosis: (7) Hypokalemia: (8) Elevated CPK: (9) Essential hypertension, benign: (10) COPD (chronic obstructive pulmonary disease): Qualifiers: COPD type: unspecified COPD Qualified Code(s): J44.9 - Chronic obstructive pulmonary disease, unspecified (11) Bipolar II disorder:
[2025-08-27] MEDS: THIAMINE 100 MG TABLET PO SCH (08:37)
[2025-08-27] MEDS ORDERED: THIAMINE 100 MG TABLET PO SCH (11:00)
[2025-08-27 13:04] VITALS: O2SAT 99
--- NOTE | 2025-08-27 15:10 | Discharge Summary ---
"Discharge Summary Admit Date: 08/22/25 Discharge Date: 08/27/25 Discharging Provider: Maykel Melgar Primary Care Provider: Raiza Lunsford Code Status: Attempt Resuscitation Discharge Facility Name: Home DIAGNOSES Discharge Diagnoses with Status of Each Condition: ## Acute hyperactive alcohol withdrawal delirium, resolved ## Wernicke Encephalopathy, improved [facility] social work specialist had called for a welfare check as patient had been on a cruz and then falling frequently at home. Alcohol level was greater than 400. No longer showing signs of withdrawal, CIWA discontinued 08/26. She has a chronic tremor which is persistent. She had a questionable diagnosis of Warnicke encephalopathy which may have just been complex withdrawal. She had some ataxia which is still persistent but improving. She is doing better with her mentation at discharge. She declined discharge to SNF which was originally recommended by PT. PT says she has improved and HH is appropriate. - Continue oral thiamine indefinitely - Discharging with naltrexone, discussed with the patient, she is motivated quit drinking - Patient declines going to a treatment facility - Home health Ordered ## Toe pain, Persistent Multiple plain films and orthopedic evaluation this hospitalization. No fracture of her toe. Pain control with Tylenol. ## Hyponatremia, Improved Initially presented with sodium of 130. Worsened with fluids. Has been started on salt tabs prior to my arrival, these were discontinued on 08/27. ## High anion gap metabolic acidosis, Resolved Due to alcoholic ketosis on arrival. ## Hypokalemia, resolved Stabilized by time of discharge. Nadired at 3.0. Stable at 3.5 on discharge. Not requiring supplementation. ## Elevated CPK, Resolved She maintained normal kidney function. Likely due to multiple falls prior to arrival. She received IV fluids early in her hospitalization. ## Essential hypertension, benign Maintained on her home amlodipine this hospitalization. ## COPD (chronic obstructive pulmonary disease), Stable Not in exacerbation this hospitalization. 50+ pack-year history of smoking. Still smokes a pack a day. Precontemplative on quitting. Continued on nicotine replacement while she was here. She is on room air at discharge. - Continue home inhalers ## Bipolar II disorder: Patient's remained stable on her home medications including Seroquel, trazodone, duloxetine. Continued at discharge. HPI History of Present Illness: Patient is a 65 year old with a history of alcohol use who presents after a fall in her bathroom. Per patient, she has been drinking heavily. She drinks tall cans of beers, and has been drinking about 6-8 every day. She states it was her two daughters birthdays recently, whom she is estranged from which led her to drinking heavily. She remembers falling a lot at home. She fell going from her toilet to the bathtub, and landed on her face. Per ER documentation, [facility] social work specialist called EMS because she had been on a cruz and had several falls. Currently, she is alert and oriented x 4. She has some minor confabulations when she is telling her history, but is otherwise able to hold an appropriate conversation. She is actively tremulous, and feels herself going through withdrawals. She states that usually takes about 24 hours from her last drink to notice withdrawals. She has ongoing tremors. She has never had alcohol withdrawal related seizure. She states that she has been to rehab about 3 times. I anticipate more than 2 midnights stay and as such, have admitted patient in inpatient status. She is currently interested in continuing to abstain from alcohol. She has a history of COPD, and states that she was up to 3 to 4 L of oxygen at home typically. She is still smoking, about half a pack to a pack a day. She make sure she turns off her oxygen before she smokes. She denies any fevers, chills. She has a chronic cough, which appears to be at her baseline with no increase in sputum production. In the emergency room, she was slightly tachycardic in the low 100s, normotensive with blood pressure 140s to 160s, saturating 87% on room air. She was put on 2 to 3 L with improvement of her oxygen to 92 to 93%. She has been afebrile the entire time she has been here lab work was reviewed from admissionshe has no leukocytosis. BMP is remarkable for sodium of 130, and a high anion gap metabolic acidosis. Her CPK was slightly elevated at thousand 12. Her procalcitonin was negative at 0.08. Chest x-ray showed increased interstitial markings. Wrist x-ray showed no visible fracture. Cervical spine CT and head CT were negative for any acute fractures. Head CT did show a left lateral forehead/left temporal region scalp hematoma. Her past medical history includes COPD on 3 to 4 L of oxygen, pulmonary hypertension, severe alcohol use disorder, bipolar disorder type I, PTSD, borderline personality disorder, cannabis use disorder, tobacco use disorder. Medications include amlodipine, simvastatin. Behavioral health notes noted from 07/28 which indicate that she is on trazodone, Seroquel, and possibly Lamictal. She has allergies to ciprofloxacin and sulfaleads to hives, and oral blisters. As stated above, she has a history of heavy alcohol use. Currently drinking 6 beers a day. Has withdrawal symptoms and under 24 hours. Has never had a withdrawal seizure. Smoking about 1 pack of tobacco a day, or 50-year pack history. Occasional marijuana use. Lives with a friend. Typically independent of ADLs. Does have 2 daughters, but has a strained relationship with them. CONSULTS | PROCEDURES Consultations: None Procedures: CTH 08/21 CT C spine 08/21 Wrist XR 08/21 CXR 08/22 Toe XR 08/26 HOSPITAL COURSE Hospital Course: Patient is a 65-year-old female with a long history of alcohol use presenting with ground-level fall at home. She wanted alcohol withdrawal here. Was in alcohol ketosis on initial arrival. She stabilized with regard to her alcohol withdrawal, and has no longer needed treatment since 08/24. CIWA was discontinued 08/26. She was found to be moderately hyponatremic. Was intermittently treated with salt tabs. These were discontinued prior to discharge, As they were leading to fluid retention and increasing her blood pressure. Minimal change in her sodium while she was on them. Her presentation is more consistent with a tea and toast or beer Potomania presentation. Sodium at discharge 128 and stable. Discussed abstinence from alcohol. Patient is amenable to continuing abstinence from alcohol. Discussed with her starting on naltrexone, and she is agreeable. Med check sent was sent to her pharmacy. There was concern for Warnicke's presentation while she was here. She was forgetful. She has a gait ataxia which is improving. She received 2 days of IV thiamine before being transition to oral . She was seen by PT and recommended her for SNF. She initially was amenable but then wanted to go home. Reevaluation by PT and she is improved intervally. She is appropriate for home health. Thiamine additionally was sent to her pharmacy. Patient was seen and examined the day of discharge. Discussed the implications of discharging home with home health versus discharging to SNF. She reaffirms that she wants to go home. She is discharged in stable condition 08/27 to home with home health. Finally, she did have some persistent left toe pain. She had x-ray on 08/26 which rule out fracture. She needs follow-up with her primary care provider within the next 2 to 4 weeks to have her BMP rechecked. If she finds naltrexone to be helpful, this should be continued indefinitely until she is secured in that she will not resume drinking. ALLERGIES Allergies Allergy/AdvReac Type Severity Reaction Status Date / Time ciprofloxacin Allergy Severe Hives Verified 08/21/25 18:00 Sulfa (Sulfonamide Allergy Mild oral Verified 08/21/25 18:00 Antibiotics) blisters codeine Allergy unknown Verified 08/21/25 18:00 MEDICATIONS Ambulatory Orders Medication Instructions Recorded Confirmed albuterol sulfate 90 mcg/actuation 2 puff inhalation Q 4H PRN 07/13/24 08/22/25 aerosol inhaler shortness of breath or wheez ing simvastatin 20 mg tablet 20 mg PO QPM #90 tabs 08/22/25 metformin 500 mg tablet 500 mg PO BID Diabetes #180 tabs 05/07/25 08/22/25 ergocalciferol (vitamin D2) 1,250 1,250 mcg PO QWEEK # 13 caps 06/14/25 08/22/25 mcg (50,000 unit) capsule (Vitamin D2) duloxetine 60 mg capsule,delayed 60 mg PO QPM #30 caps 07/13/25 08/22/25 release quetiapine 50 mg tablet 50 mg PO QPM #30 tabs 08/22/25 trazodone 50 mg tablet 50 mg PO HS #30 tabs 5 08/22/25 lamotrigine 100 mg tablet 200 mg PO QPM 08/21/25 amlodipine 5 mg tablet (Norvasc) 5 mg PO DAILY 5 08/22/25 gabapentin 300 mg capsule 300 mg PO TID #90 caps 08/22 omeprazole 20 mg capsule,delayed 20 mg PO DAILY 08/22/25 release naltrexone 50 mg tablet 50 mg PO DAILY #30 tabs 08/05 01/26 thiamine HCl (vitamin B1) 100 mg 100 mg PO DAILY #30 c aps 08/27/25 capsule PHYSICAL EXAM AT DISCHARGE Vital Signs: Vital Signs x48h Temp Pulse Resp BP 08/27/25 16:25 37.0 C 88 18 151/79 H LABS 08/26/25 08:08 08/26/25 08:08 FOLLOW UP Follow Up: Follow-up with PCP in the next 2 to 4 weeks Home health orders in place Will need repeat BMP in the next 2 to 4 weeks TIME SPENT Time Spent in Discharge (Minutes): 37 Discharge Plan Discharge Patient Disposition: Home, Self Care Condition: Stable Medically Cleared Date:: 08/27/25 Prescriptions: New naltrexone 50 mg tablet 50 mg PO DAILY Qty: 30 1RF thiamine HCl (vitamin B1) 100 mg capsule 100 mg PO DAILY Qty: 30 0RF Continued simvastatin 20 mg tablet 20 mg PO QPM Qty: 90 3RF metformin 500 mg tablet 500 mg PO BID Qty: 180 3RF Rx Instructions: Take 1 tablet by mouth twice daily ergocalciferol (vitamin D2) [Vitamin D2] 1,250 mcg (50,000 unit) capsule 1,250 mcg PO QWEEK Qty: 13 0RF gabapentin 300 mg capsule 300 mg PO TID Qty: 90 3RF lamotrigine 100 mg tablet 200 mg PO QPM Rx Instructions: After 50mg dose x 14 days. Take 1 tablet in the evening x 7 days, then increase to 2 tablets daily in the evening. omeprazole 20 mg capsule,delayed release(DR/EC) 20 mg PO DAILY amlodipine [Norvasc] 5 mg tablet 5 mg PO DAILY Rx Instructions: Take 1 tablet by mouth once a day trazodone 50 mg tablet 50 mg PO HS Qty: 30 2RF duloxetine 60 mg capsule,delayed release(DR/EC) 60 mg PO QPM Qty: 30 2RF quetiapine 50 mg tablet 50 mg PO QPM Qty: 30 2RF albuterol sulfate 90 mcg/actuation HFA aerosol inhaler 2 puff inhalation Q4H PRN (Reason: shortness of breath or wheezing) Rx Instructions: Inhale 2 puff using inhaler every four hours as needed Activity Restrictions: No Restrictions Activity Restrictions/Additional Instructions: You have been treated for alcohol withdrawal. You were found to have low sodium levels in your blood.Please follow these instructions to help prevent complications and support your recovery: * Fluid Intake:Limit daily fluid intake to 11.5 liters (about 46 cups), unless otherwise directed. This helps prevent your sodium from dropping further.[4][6] * Alcohol Use:Avoid alcohol, as it can worsen sodium imbalance and increase your risk of serious complications. * Diet:Eat regular, balanced meals with adequate protein and salt. Malnutrition and low potassium can make hyponatremia worse. * Medications:Take your medications as prescribed. Do not restart any diuretics or laxatives unless your doctor tells you to. * Monitoring:Watch for symptoms such as confusion, severe headache, trouble walking, muscle weakness, nausea, vomiting, or seizures. These may be signs your sodium is too low or changing too quickly. * Follow-Up:Get your blood sodium and potassium checked as scheduled. Rapid changes in sodium can cause serious brain problems (osmotic demyelination syndrome), especially in people with alcohol use, liver disease, or poor nutrition. * Nutrition:If you have trouble eating, ask about seeing a dietitian. Good nutrition helps your body recover and keeps your sodium stable. * When to Seek Help:Go to the emergency room if you have confusion, trouble speaking, trouble moving, fainting, or seizures. Summary:Careful fluid restriction, avoiding alcohol, and regular follow-up are [place] to safe recovery from hyponatremia. Always follow your care team's instructions and report any new or worsening symptoms promptly. Diet: Regular Print Language: Amharic Patient Instructions: ED Alcohol Intoxication, ED Head Injury (Adult), ED Alcohol Abuse Follow-up Care: Raiza Lunsford ARNP [Primary Care Provider, Family Practice] Vitals documented within 30 minutes of discharge?: Yes (see 1625 VS)"
[2025-08-27 16:35] VITALS: BP 151/79; TEMP 98.6
== END 2025-08-27 16:25 | disposition home or self-care (01) | DRG 896 ==
LOC: ED 17:57 → SUATTDRO 08-22 16:30 → MS2 08-22 16:30
PROVIDERS: ADMIT Internal Medicine; ATTEND Student in an Organized Health Care Education/Training Program
DX: I27.20 Pulmonary hypertension, unspecified; R53.1 Weakness; R09.02 Hypoxemia; R26.0 Ataxic gait; E51.2 Wernicke's encephalopathy; E87.20 Acidosis, unspecified; S60.212A Contusion of left wrist, initial encounter; F10.229 Alcohol dependence with intoxication, unspecified; I10 Essential (primary) hypertension; F41.9 Anxiety disorder, unspecified; Z88.2 Allergy status to sulfonamides; Z88.1 Allergy status to other antibiotic agents; S00.03XA Contusion of scalp, initial encounter; F10.239 Alcohol dependence with withdrawal, unspecified; Y90.8 Blood alcohol level of 240 mg/100 ml or more; Z91.81 History of falling; M62.82 Rhabdomyolysis; S60.211A Contusion of right wrist, initial encounter; G93.41 Metabolic encephalopathy; F10.231 Alcohol dependence with withdrawal delirium; F31.81 Bipolar II disorder; J18.9 Pneumonia, unspecified organism; Z99.81 Dependence on supplemental oxygen; E87.1 Hypo-osmolality and hyponatremia; R00.0 Tachycardia, unspecified; E87.6 Hypokalemia; H55.00 Unspecified nystagmus; Y92.002 Bathroom of unspecified non-institutional (private) residence as the place of occurrence of the external cause; W19.XXXA Unspecified fall, initial encounter; R74.8 Abnormal levels of other serum enzymes; Y92.009 Unspecified place in unspecified non-institutional (private) residence as the place of occurrence of the external cause; J44.9 Chronic obstructive pulmonary disease, unspecified; S00.83XA Contusion of other part of head, initial encounter; F17.210 Nicotine dependence, cigarettes, uncomplicated; W18.30XA Fall on same level, unspecified, initial encounter; R25.1 Tremor, unspecified; F60.3 Borderline personality disorder; M79.675 Pain in left toe(s)